=== PATIENT | female | born 1970 | race Caucasian/White ===

== ENCOUNTER 2018-08-13 07:54 | Emergency (ER) | payer OTHER ==
--- NOTE | 2018-08-13 08:40 | EDPHYS ---
Physician Documentation [facility] Name: Elaine Rowland Age: 47 yrs Sex: Female : 1970 Arrival Date: 08/13/2018 Time: 07:58 Bed 18 Private MD: None, None ED Physician Omar Rudd HPI: 08/13 08:29 This 47 yrs old Female presents to ER via Ambulatory with complaints of Foot jr8 Pain. 08:29 The patient presents with pain, numbness, tingling. The complaints affect the right jr8 valenzuela, anterior aspect of right ankle and dorsum of right foot. Onset: The symptoms/episode began/occurred gradually, 2 week(s) ago. Modifying factors: The symptoms are alleviated by nothing. the symptoms are aggravated by nothing. Associated signs and symptoms: The patient has no apparent associated signs or symptoms. Severity of symptoms: At their worst the symptoms were mild, in the emergency department the symptoms are unchanged. The patient has not experienced similar symptoms in the past. The patient has not recently seen a physician. Stated that she has had non specific n/v/d on/off of the past couple of months. Has f/u with GI but missed colonoscopy . 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 - Social history:: Smoking status: Patient/guardian denies using tobacco. - Ebola Screening: : Patient negative for fever greater than or equal to 101.5 degrees Fahrenheit, and additional compatible Ebola Virus Disease symptoms Patient denies exposure to infectious person Patient denies travel to an Ebola-affected area in the 21 days before illness onset No symptoms or risks identified at this time. ROS: 08:35 Eyes: Negative for injury, pain, redness, and discharge, ENT: Negative for injury, jr8 pain, and discharge, Neck: Negative for injury, pain, and swelling, Cardiovascular: Negative for chest pain, palpitations, and edema, Respiratory: Negative for shortness of breath, cough, wheezing, and pleuritic chest pain, Back: Negative for injury and pain, Skin: Negative for injury, rash, and discoloration, Neuro: Negative for headache, weakness, numbness, tingling, and seizure. 08:35 Abdomen/GI: Positive for nausea, vomiting, and diarrhea, abdominal cramps, Negative for abdominal pain, abdominal distension, anorexia, dysphagia, hematemesis, black/tarry stool, rectal pain, rectal bleeding, bowel incontinence, flatulence. 08:35 MS/extremity: Positive for pain, paresthesias, of the right lower leg. Exam: 08:35 Eyes: Pupils equal round and reactive to light, extra-ocular motions intact. Lids and jr8 lashes normal. Conjunctiva and sclera are non-icteric and not injected. Cornea within normal limits. Periorbital areas with no swelling, redness, or edema. ENT: Nares patent. No nasal discharge, no septal abnormalities noted. Tympanic membranes are normal and external auditory canals are clear. Oropharynx with no redness, swelling, or masses, exudates, or evidence of obstruction, uvula midline. Mucous membranes moist. Neck: Trachea midline, no thyromegaly or masses palpated, and no cervical lymphadenopathy. Supple, full range of motion without nuchal rigidity, or vertebral point tenderness. No Meningismus. Cardiovascular: Regular rate and rhythm with a normal S1 and S2. No gallops, murmurs, or rubs. Normal PMI, no JVD. No pulse deficits. Respiratory: Lungs have equal breath sounds bilaterally, clear to auscultation and percussion. No rales, rhonchi or wheezes noted. No increased work of breathing, no retractions or nasal flaring. Abdomen/GI: Soft, non-tender, with normal bowel sounds. No distension or tympany. No guarding or rebound. No evidence of tenderness throughout. Back: No spinal tenderness. No costovertebral tenderness. Full range of motion. Skin: Warm, dry with normal turgor. Normal color with no rashes, no lesions, and no evidence of cellulitis. Neuro: Awake and alert, GCS 15, oriented to person, place, time, and situation. Cranial nerves II-XII grossly intact. Motor strength 5/5 in all extremities. Sensory grossly intact. Cerebellar exam normal. Normal gait. 08:35 Musculoskeletal/extremity: Extremities: grossly normal except: noted in the right lower leg from ankle down: numbness and tingling present, ROM: intact in all extremities, Circulation is intact in all extremities. Vital Signs: 08:12 BP 167 / 93; Pulse 72; Resp 18; Temp 98.3(O); Pulse Ox 100% on R/A; Weight 65.77 kg; em Height 5 ft. 2 in. (157.48 cm); Pain 7/10; 08:12 Body Mass Index 26.52 (65.77 kg, 157.48 cm) em MDM: 08:10 Patient medically screened. jr8 08:35 Data reviewed: vital signs, nurses notes, and as a result, I will discharge patient. jr8 Data interpreted: Pulse oximetry: on room air is 100 %. Interpretation: normal. Counseling: I had a detailed discussion with the patient and/or guardian regarding: the historical points, exam findings, and any diagnostic results supporting the discharge/admit diagnosis, the need for outpatient follow up, a family practitioner, a spray operator, to return to the emergency department if symptoms worsen or persist or if there are any questions or concerns that arise at home. ED course: Discussed with patient that her symptoms are consistent with diabetic mononeuropathy. Will start on gabapentin for pain and paresthesias. Need to f/u with GI for other problems. No acute findings on physical exam and has been going on for months now without acute change . Administered Medications: No medications were administered Disposition: 08/13/18 08:39 Discharged to Home. Impression: Mononeuropathies of lower limb. - Condition is Stable. - Discharge Instructions: Diabetic Neuropathy. - Prescriptions for Neurontin 300 mg Oral Capsule - take 1 capsule by ORAL route as directed 1 pill on day one. Then 1 pill BID on days 2 and on; 30 capsule. - Medication Reconciliation Form, Thank You Letter, Antibiotic Education, Prescription Opioid Use form. - Follow up: Private Physician; When: 2 - 3 days; Reason: Recheck today's complaints, Continuance of care, Re-evaluation by your physician. - Problem is new. - Symptoms have improved. Addendum: 08/15/2018 07:48 Co-signature as Attending Physician, Omar Rudd MD I agree with the assessment and w a plan of care. Signatures: Mahamed Pruitt, CIRA TELESALES ADVISOR em Bashir Card PA PA jr8 Omar Rudd MD MD wa Corrections: (The following items were deleted from the chart) 08/13 08:53 08:39 08/13/2018 08:39 Discharged to Home. Impression: Mononeuropathies of lower limb. em Condition is Stable. Forms are Medication Reconciliation Form, Thank You Letter, Antibiotic Education, Prescription Opioid Use. Follow up: Private Physician; When: 2 - 3 days; Reason: Recheck today's complaints, Continuance of care, Re-evaluation by your physician. Problem is new. Symptoms have improved. jr8
--- NOTE | 2018-08-13 08:40 | ER ---
Nurse's Notes [facility] Name: Elaine Rowland Age: 47 yrs Sex: Female : 1970 Arrival Date: 08/13/2018 Time: 07:58 Bed 18 Private MD: None, None Diagnosis: Mononeuropathies of lower limb Presentation: 08/13 08:09 Presenting complaint: Patient states: foot pain for about a month that feels em numb/tingling, denies trauma, also reports N/V/D for several weeks, was told to follow up with GI due to bad kidney's. Transition of care: patient was not received from another setting of care. Onset of symptoms was July 13, 2018. Risk Assessment: Do you want to hurt yourself or someone else? Patient reports no desire to harm self or others. Initial Sepsis Screen: Does the patient meet any 2 criteria? No. Patient's initial sepsis screen is negative. Does the patient have a suspected source of infection? No. Patient's initial sepsis screen is negative. Care prior to arrival: None. 08:09 Method Of Arrival: Ambulatory em 08:11 Acuity: SHAINA 3 la1 Triage Assessment: 08:12 General: Appears in no apparent distress. comfortable, Behavior is calm, cooperative. em Pain: Complains of pain in dorsum of right foot, right second toe and Right second toenail. 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 - Social history:: Smoking status: Patient/guardian denies using tobacco. - Ebola Screening: : Patient negative for fever greater than or equal to 101.5 degrees Fahrenheit, and additional compatible Ebola Virus Disease symptoms Patient denies exposure to infectious person Patient denies travel to an Ebola-affected area in the 21 days before illness onset No symptoms or risks identified at this time. Screenin:18 Abuse screen: Denies threats or abuse. Nutritional screening: No deficits noted. em Tuberculosis screening: No symptoms or risk factors identified. Fall Risk None identified. Assessment: 08:16 General: Appears in no apparent distress. comfortable, Behavior is calm, cooperative. em Pain: Complains of pain in right second toe and dorsum of right foot Pain currently is 7 out of 10 on a pain scale. Neuro: Level of Consciousness is awake, alert, obeys commands, Oriented to person, place, time, situation, Reports numbness and tingling to right foot x 1 month. Cardiovascular: Denies chest pain, Capillary refill < 3 seconds Patient's skin is warm and dry. Respiratory: Airway is patent Respiratory effort is even, unlabored, Respiratory pattern is regular, symmetrical. GI: Abdomen is round non-distended, Reports diarrhea, nausea, vomiting. : No signs and/or symptoms were reported regarding the genitourinary system. EENT: No signs and/or symptoms were reported regarding the EENT system. Derm: Skin is intact, Skin is pink, warm \T\ dry. Musculoskeletal: Range of motion: intact in all extremities. 08:16 Reassessment: I agree with assessment completed by Mahamed Pruitt LVN . aa5 Vital Signs: 08:12 BP 167 / 93; Pulse 72; Resp 18; Temp 98.3(O); Pulse Ox 100% on R/A; Weight 65.77 kg; em Height 5 ft. 2 in. (157.48 cm); Pain 7/10; 08:12 Body Mass Index 26.52 (65.77 kg, 157.48 cm) em ED Course: 07:58 Patient arrived in ED. mr 07:58 None, None is Private Physician. mr 08:02 Mahamed Pruitt LVN is Primary Nurse. em 08:10 Bashir Card PA is PHCP. jr8 08:10 Omar Rudd MD is Attending Physician. jr8 08:11 Triage completed. la1 08:12 Arm band placed on. em 08:24 Patient has correct armband on for positive identification. Placed in gown. Bed in low em position. Call light in reach. 08:24 No provider procedures requiring assistance completed. em 08:48 Patient did not have IV access during this emergency room visit. em Administered Medications: No medications were administered Outcome: 08:39 Discharge ordered by . jr8 08:48 Discharged to home ambulatory. em 08:48 Condition: good 08:48 Discharge instructions given to patient, Instructed on discharge instructions, follow up and referral plans. medication usage, Demonstrated understanding of instructions, follow-up care, medications, Prescriptions given X 1. 08:53 Patient left the ED. em Signatures: Shelly Neff mr Pruitt, Mahamed, ENGINEERING TECHNICAL SPECIALIST ENGINEERING TECHNICAL SPECIALIST em Kianna Guillermo RN RN aa5 Bashir Card PA PA jr8 Kevin Cox RN RN la1
== END 2018-08-13 08:53 | disposition home or self-care (01) ==
LOC: ER 07:54
DX: G57.91 Unspecified mononeuropathy of right lower limb (principal); E11.9 Type 2 diabetes mellitus without complications; E78.5 Hyperlipidemia, unspecified; Z88.6 Allergy status to analgesic agent
CPT/HCPCS: 99282

== ENCOUNTER 2018-08-14 17:54 | Emergency (ER) | payer OTHER ==
[2018-08-14 19:07] LABS: ALT/SGPT 66 U/L (12-78); AST/SGOT 83 U/L (15-37); Albumin 3.6 g/dL (3.4-5.0); Alkaline Phosphatase 137 U/L (45-117); BUN Blood Urea Nitrogen 15 mg/dL (7-18); Bicarbonate 27 mmol/L (21-32); Bilirubin Direct < 0.1 mg/dL (0-0.2); Bilirubin Total 0.3 mg/dL (0.2-1.0); Glucose Level 254 mg/dL (74-106); Lipase 235 U/L (73-393); Potassium 4.1 mmol/L (3.5-5.1); Protein, Total 7.4 g/dL (6.4-8.2); Sodium Level 140 mmol/L (136-145)
[2018-08-14 19:14] LABS: Absolute Lymphocytes (CBC) 1.8 K/uL (0.7-4.9); Absolute Monocytes 0.4 K/uL (0.1-1.3); Absolute Neutrophil 2.9 K/uL (1.8-8.0); Basophils % 0.7 % (0-1.3); Eosinophils % 2.8 % (0-4.4); Hematocrit 37.1 % (36.0-45.0); Lymphocytes % 33.8 % (15.3-44.8); MCV 90.6 fL (80-100); MPV 9.1 fL (7.6-11.3); Monocytes % 7.1 % (3.3-12.3); RBC Red Blood Cell Count 4.09 M/uL (3.86-4.86)
[2018-08-14 19:21] LABS: Urine Blood NEGATIVE (NEG); Urine Glucose 2+ (NEG); Urine Protein NEGATIVE (NEG); Urine Specific Gravity >1.030 (1.005-1.030); Urine pH 5.5 (5.0-7.0)
--- NOTE | 2018-08-14 19:51 | RAD REPORT ---
EXAM DESCRIPTION: CT - Abdomen Pelvis W Contrast - 08/14/2018 7:32 pm CLINICAL HISTORY: Abdominal pain, abdominal distention COMPARISON: CT study February 2017 TECHNIQUE: Biphasic, helical CT imaging of the abdomen and pelvis was performed following 100 ml non -ionic IV contrast. No oral contrast administered. All CT scans are performed using dose optimization technique as appropriate and may include automated exposure control or mA/KV adjustment according to patient size. FINDINGS: No suspicious findings in the lung bases. The liver, spleen, and pancreas show no suspicious findings. Gallbladder is contracted. Biliary tree within normal limits. Symmetric renal function is seen with no hydronephrosis or suspicious renal mass. No pyelonephritis o r acute renal parenchymal process. Contracted urinary bladder shows no suspicious finding. Uterus and ovaries unremarkable. No dilated bowel loops or bowel wall thickening. Appendix is normal. No free air, free fluid or pneum atosis. No hernia, mass or bulky lymphadenopathy. Patient has numerous central mesenteric lymph node s. No adrenal abnormality. No suspicious bony findings. IMPRESSION: Mesenteric adenitis or nonspecific enteritis pattern.
[2018-08-14] MEDS ORDERED: NA CHLORIDE 0.9% 1,000 ML ONE (20:10)
--- NOTE | 2018-08-14 20:21 | ER ---
Nurse's Notes [facility] Name: Elaine Rowland Age: 47 yrs Sex: Female : 1970 Arrival Date: 08/14/2018 Time: 17:55 Bed 27 Private MD: Diagnosis: Viral Gastroenteritis;Diarrhea, unspecified;Unspecified abdominal pain Presentation: 08/14 18:00 Presenting complaint: Patient states: right leg swelling and abdominal distention that aa5 began 3 weeks ago. Pt states "I was seen here yesterday and all they gave me was Gabapentin for nerve damage from diabetes". Pt reports SOB today. Transition of care: patient was not received from another setting of care. Onset of symptoms was August 14, 2018. Risk Assessment: Do you want to hurt yourself or someone else? Patient reports no desire to harm self or others. Initial Sepsis Screen: Does the patient meet any 2 criteria? No. Patient's initial sepsis screen is negative. Does the patient have a suspected source of infection? No. Patient's initial sepsis screen is negative. Care prior to arrival: None. 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 - Social history:: Smoking status: Patient/guardian denies using tobacco. - Ebola Screening: : No symptoms or risks identified at this time. Screenin:40 Abuse screen: Denies threats or abuse. Denies injuries from another. Nutritional mg2 screening: No deficits noted. Tuberculosis screening: No symptoms or risk factors identified. Fall Risk IV access (20 points). Assessment: 18:40 General: Appears in no apparent distress. comfortable, Behavior is calm, cooperative. mg2 Pain: Complains of pain in abdomen Pain does not radiate. Pain currently is 4 out of 10 on a pain scale. Quality of pain is described as aching, Pain began gradually, 1 day ago. Is intermittent. Neuro: Level of Consciousness is awake, alert, obeys commands, Oriented to person, place, time, situation. Cardiovascular: Capillary refill < 3 seconds Patient's skin is warm and dry. Respiratory: Airway is patent Respiratory effort is even, unlabored, Respiratory pattern is regular, symmetrical. GI: Bowel sounds present X 4 quads. Abd is rigid X 4 quads. EENT: No signs and/or symptoms were reported regarding the EENT system. Derm: Skin is intact, Skin is pink, warm \\T\\ dry. normal. Musculoskeletal: Circulation, motion, and sensation intact. 20:15 Reassessment: Patient appears in no apparent distress at this time. Patient and/or mg2 family updated on plan of care and expected duration. Pain level reassessed. Patient is alert, oriented x 3, equal unlabored respirations, skin warm/dry/pink. Vital Signs: 18:02 BP 173 / 80; Pulse 86; Resp 18 S; Temp 98.8(O); Pulse Ox 98% on R/A; Weight 65.77 kg aa5 (R); Height 5 ft. 2 in. (157.48 cm) (R); Pain 7/10; 19:11 BP 118 / 68; Pulse 85; Resp 18; Pulse Ox 97% on R/A; mg2 20:14 BP 154 / 90; Pulse 80; Resp 18; Pulse Ox 100% on R/A; Pain 5/10; mg2 21:28 BP 140 / 70; Pulse 75; Resp 18; Pulse Ox 100% on R/A; Pain 0/10; mg2 18:02 Body Mass Index 26.52 (65.77 kg, 157.48 cm) aa5 ED Course: 17:55 Patient arrived in ED. mr 18:01 Triage completed. aa5 18:01 Arm band placed on. aa5 18:14 Oskar Young, NADIA is Primary Nurse. mg2 18:16 Shelton Vidal NP is PHCP. pm1 18:16 Fercho Santiago MD is Attending Physician. pm1 18:40 Inserted saline lock: 20 gauge in right antecubital area, using aseptic technique. mg2 Blood collected. 18:42 Patient has correct armband on for positive identification. Bed in low position. Side mg2 rails up X 1. Pulse ox on. NIBP on. 19:[address] via wheelchair. cw1 19:31 CT completed. Patient moved back from CT. cw1 19:32 CT Abd/Pelvis - W/Contrast: IV contrast only In Process Unspecified. EDMS 21:28 No provider procedures requiring assistance completed. IV discontinued, intact, mg2 bleeding controlled, No redness/swelling at site. Pressure dressing applied. Administered Medications: 20:09 Drug: NS 0.9% 1000 ml Route: IV; Rate: 1000 ml; Site: right antecubital; mg2 21:26 Follow up: Response: No adverse reaction; Marked relief of symptoms; IV Status: mg2 Completed infusion Outcome: 20:20 Discharge ordered by MD. pm1 21:28 Discharged to home ambulatory. mg2 21:28 Condition: stable 21:28 Discharge instructions given to patient, Instructed on discharge instructions, follow up and referral plans. Demonstrated understanding of instructions, follow-up care. 21:29 Patient left the ED. mg2 Signatures: Dispatcher [employer] EDVT Shelly Neff Audri, RN RN aa5 Maria Victoria Nielsen cw1 Shelton Vidal, VALDEZ RESEARCH LABORATORY TECHNICIAN pm1 Oskar Young RN RN mg2
--- NOTE | 2018-08-14 20:21 | EDPHYS ---
Physician Documentation [facility] Name: Elaine Rowland Age: 47 yrs Sex: Female : 1970 Arrival Date: 08/14/2018 Time: 17:55 Bed 27 Private MD: ED Physician Fercho Santiago HPI: 08/14 19:00 This 47 yrs old Female presents to ER via Ambulatory with complaints of Leg pm1 Swelling, Abdominal Swelling. 19:00 The patient presents with abdominal pain that is diffuse. Onset: The symptoms/episode pm1 began/occurred Abdominal swelling onset yesterday. Leg swelling onset 3 weeks ago. The symptoms do not radiate. Associated signs and symptoms: Pertinent positives: diarrhea, Pertinent negatives: blood in stools, chest pain, dysuria, fever, headache, nausea, vomiting. The symptoms are described as crampy. Modifying factors: The symptoms are alleviated by nothing, the symptoms are aggravated by nothing. Severity of pain: in the emergency department the pain is actually worse. The patient has not experienced similar symptoms in the past. The patient has been recently seen at the [facility] Emergency Department, yesterday, Right leg numbness and diagnosed with mononeuropathy due to DM and discharged to home with gabapentin. Patient reports swelling to right leg that started three weeks ago. Abdominal distension and diarrhea x 5 onset yesterday. Patient reports abdominal distention makes it feel like it is hard for her to breath. . 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 - Social history:: Smoking status: Patient/guardian denies using tobacco. - Ebola Screening: : No symptoms or risks identified at this time. ROS: 19:00 Constitutional: Negative for fever, chills, and weight loss, Eyes: Negative for injury, pm1 pain, redness, and discharge, ENT: Negative for injury, pain, and discharge, Neck: Negative for injury, pain, and swelling, Cardiovascular: Negative for chest pain, palpitations, and edema, Respiratory: Negative for shortness of breath, cough, wheezing, and pleuritic chest pain. 19:00 Back: Negative for injury and pain, : Negative for injury, bleeding, discharge, and swelling, MS/Extremity: Negative for injury and deformity, Skin: Negative for injury, rash, and discoloration. 19:00 Abdomen/GI: Positive for abdominal pain, diarrhea, Negative for nausea and vomiting. 19:00 Neuro: Positive for numbness right foot, Negative for dizziness, headache, weakness. Exam: 19:00 Constitutional: This is a well developed, well nourished patient who is awake, alert, pm1 and in no acute distress. Head/Face: Normocephalic, atraumatic. Eyes: Pupils equal round and reactive to light, extra-ocular motions intact. Lids and lashes normal. Conjunctiva and sclera are non-icteric and not injected. Cornea within normal limits. Periorbital areas with no swelling, redness, or edema. ENT: Nares patent. No nasal discharge, no septal abnormalities noted. Tympanic membranes are normal and external auditory canals are clear. Oropharynx with no redness, swelling, or masses, exudates, or evidence of obstruction, uvula midline. Mucous membranes moist. Neck: Trachea midline, no thyromegaly or masses palpated, and no cervical lymphadenopathy. Supple, full range of motion without nuchal rigidity, or vertebral point tenderness. No Meningismus. Chest/axilla: Normal chest wall appearance and motion. Nontender with no deformity. No lesions are appreciated. Cardiovascular: Regular rate and rhythm with a normal S1 and S2. No gallops, murmurs, or rubs. Normal PMI, no JVD. No pulse deficits. Respiratory: Lungs have equal breath sounds bilaterally, clear to auscultation and percussion. No rales, rhonchi or wheezes noted. No increased work of breathing, no retractions or nasal flaring. 19:00 Back: No spinal tenderness. No costovertebral tenderness. Full range of motion. Skin: Warm, dry with normal turgor. Normal color with no rashes, no lesions, and no evidence of cellulitis. 19:00 Abdomen/GI: Inspection: abdomen appears normal, obese Bowel sounds: normal, Palpation: soft, mild abdominal tenderness, in the right upper quadrant and left upper quadrant, mass, is not appreciated, rebound tenderness, is not appreciated. 19:00 Musculoskeletal/extremity: Extremities: all appear grossly normal, with no appreciated pain with palpation, DVT Exam: No signs of deep vein thrombosis. no pain, no swelling, no tenderness, negative Homans' sign noted on exam, no appreciated bluish discoloration, no erythema, no increased warmth, Calves: are non-tender, have equal circumference. 19:00 Neuro: Orientation: is normal, Motor: moves all fours. Vital Signs: 18:02 BP 173 / 80; Pulse 86; Resp 18 S; Temp 98.8(O); Pulse Ox 98% on R/A; Weight 65.77 kg aa5 (R); Height 5 ft. 2 in. (157.48 cm) (R); Pain 7/10; 19:11 BP 118 / 68; Pulse 85; Resp 18; Pulse Ox 97% on R/A; mg2 20:14 BP 154 / 90; Pulse 80; Resp 18; Pulse Ox 100% on R/A; Pain 5/10; mg2 21:28 BP 140 / 70; Pulse 75; Resp 18; Pulse Ox 100% on R/A; Pain 0/10; mg2 18:02 Body Mass Index 26.52 (65.77 kg, 157.48 cm) aa5 MDM: 18:17 Patient medically screened. pm1 20:19 Data reviewed: vital signs. Data interpreted: Pulse oximetry: on room air is 100 %. pm1 Interpretation: normal. Counseling: I had a detailed discussion with the patient and/or guardian regarding: the historical points, exam findings, and any diagnostic results supporting the discharge/admit diagnosis, lab results, radiology results, the need for outpatient follow up, to return to the emergency department if symptoms worsen or persist or if there are any questions or concerns that arise at home. 08/14 18:23 Order name: Basic Metabolic Panel pm1 08/14 18:23 Order name: CBC with Diff; Complete Time: 20:00 pm1 08/14 18:23 Order name: Creatinine for Radiology; Complete Time: 20:00 pm1 08/14 18:23 Order name: Hepatic Function; Complete Time: 20:00 pm1 08/14 18:23 Order name: Lipase; Complete Time: 20:00 pm1 08/14 18:23 Order name: Basic Metabolic Panel; Complete Time: 20:00 EDMS 08/14 18:23 Order name: Urine Test (obtain specimen); Complete Time: 18:49 pm1 08/14 18:23 Order name: IV Saline Lock; Complete Time: 18:40 pm1 08/14 18:23 Order name: Labs collected and sent; Complete Time: 18:40 pm1 08/14 18:23 Order name: Urine Dipstick-Ancillary (obtain specimen); Complete Time: 18:49 pm1 08/14 18:36 Order name: CT Abd/Pelvis - W/Contrast: IV contrast only; Complete Time: 20:00 pm1 08/14 18:55 Order name: Urine Dipstick--Ancillary (enter results); Complete Time: 20:00 ag 08/14 18:55 Order name: Urine --Ancillary (enter results); Complete Time: 20:00 ag Administered Medications: 20:09 Drug: NS 0.9% 1000 ml Route: IV; Rate: 1000 ml; Site: right antecubital; mg2 21:26 Follow up: Response: No adverse reaction; Marked relief of symptoms; IV Status: mg2 Completed infusion Disposition: 08/14/18 20:20 Discharged to Home. Impression: Viral Gastroenteritis, Diarrhea, unspecified, Unspecified abdominal pain. - Condition is Stable. - Discharge Instructions: Abdominal Pain, Adult, Food Choices to Help Relieve Diarrhea, Adult, Diarrhea, Adult, Viral Gastroenteritis, Adult. - Prescriptions for Bentyl 20 mg Oral Tablet - take 1 tablet by ORAL route every 6 hours As needed; 20 tablet. - Medication Reconciliation Form, Thank You Letter, Antibiotic Education, Prescription Opioid Use form. - Follow up: Emergency Department; When: As needed; Reason: Worsening of condition. Follow up: Private Physician; When: 2 - 3 days; Reason: Recheck today's complaints, Continuance of care, Re-evaluation by your physician. - Problem is new. - Symptoms have improved. Signatures: Dispatcher [employer] EDMS Kianna Guillermo RN RN aa5 Shelton Vidal NP SUPERVISOR BEET END pm1 Oskar Young RN RN mg2 Corrections: (The following items were deleted from the chart) 21:29 20:20 08/14/2018 20:20 Discharged to Home. Impression: Viral Gastroenteritis; Diarrhea, mg2 unspecified; Unspecified abdominal pain. Condition is Stable. Forms are Medication Reconciliation Form, Thank You Letter, Antibiotic Education, Prescription Opioid Use. Follow up: Emergency Department; When: As needed; Reason: Worsening of condition. Follow up: Private Physician; When: 2 - 3 days; Reason: Recheck today's complaints, Continuance of care, Re-evaluation by your physician. Problem is new. Symptoms have improved. pm1
== END 2018-08-14 21:29 | disposition home or self-care (01) ==
LOC: ER 17:54
DX: A08.4 Viral intestinal infection, unspecified (principal); R19.7 Diarrhea, unspecified; E11.9 Type 2 diabetes mellitus without complications; Z88.6 Allergy status to analgesic agent
CPT/HCPCS: 36415; 74177; 80048; 80076; 81003; 81025; 83690; 85025; 96360; 99284; J7030; Q9967

== ENCOUNTER 2018-08-27 12:06 | Emergency (ER) | payer OTHER ==
[2018-08-27] MEDS ORDERED: DICYCLOMINE HCL 10 MG CAP ONE (12:39)
[2018-08-27] MEDS ORDERED: NA CHLORIDE 0.9% 1,000 ML ONE (12:40)
[2018-08-27] MEDS ORDERED: ONDANSETRON 4 MG/2 ML VIAL ONE (12:40)
[2018-08-27 12:50] LABS: Absolute Monocytes 0.2 K/uL (0.1-1.3); Absolute Neutrophil 3.4 K/uL (1.8-8.0); Basophils % 0.7 % (0-1.3); Eosinophils % 1.8 % (0-4.4); Hematocrit 39.8 % (36.0-45.0); Lymphocytes % 21.4 % (15.3-44.8); MCH 30.4 pg (27.0-35.0); MCV 88.2 fL (80-100); MPV 8.8 fL (7.6-11.3); Monocytes % 4.8 % (3.3-12.3); RBC Red Blood Cell Count 4.51 M/uL (3.86-4.86)
[2018-08-27 13:05] LABS: Urine Blood TRACE (NEG); Urine Glucose 2+ (NEG); Urine Protein NEGATIVE (NEG); Urine Specific Gravity 1.015 (1.005-1.030)
[2018-08-27 13:07] LABS: ALT/SGPT 30 U/L (12-78); AST/SGOT 29 U/L (15-37); Albumin 3.9 g/dL (3.4-5.0); Alkaline Phosphatase 107 U/L (45-117); BUN Blood Urea Nitrogen 12 mg/dL (7-18); Bicarbonate 31 mmol/L (21-32); Bilirubin Direct < 0.1 mg/dL (0-0.2); Bilirubin Total 0.5 mg/dL (0.2-1.0); Glucose Level 173 mg/dL (74-106); Lipase 208 U/L (73-393); Potassium 3.8 mmol/L (3.5-5.1); Protein, Total 7.5 g/dL (6.4-8.2); Sodium Level 142 mmol/L (136-145)
--- NOTE | 2018-08-27 14:35 | ER ---
Nurse's Notes [facility] Name: Elaine Rowland Age: 48 yrs Sex: Female : 1970 Arrival Date: 08/27/2018 Time: 12:09 Bed 7 Private MD: None, None Diagnosis: Nausea and vomiting;Diarrhea, unspecified Presentation: 08/27 12:21 Presenting complaint: Patient states: Reports N/V/D for 4 days. Reports fever aj yesterday. Transition of care: patient was not received from another setting of care. Onset of symptoms was August 23, 2018. Risk Assessment: Do you want to hurt yourself or someone else? Patient reports no desire to harm self or others. Initial Sepsis Screen: Does the patient meet any 2 criteria? No. Patient's initial sepsis screen is negative. Does the patient have a suspected source of infection? No. Patient's initial sepsis screen is negative. Care prior to arrival: None. 12:21 Method Of Arrival: Ambulatory aj 12:21 Acuity: SHAINA 3 aj Triage Assessment: 12:22 General: Appears in no apparent distress. comfortable, Behavior is calm, cooperative, aj appropriate for age. Pain: Denies pain. Neuro: Level of Consciousness is awake, alert, obeys commands, Oriented to person, place, time, situation, Appropriate for age. Respiratory: Airway is patent Respiratory effort is even, unlabored, Respiratory pattern is regular, symmetrical. GI: Reports diarrhea, nausea, vomiting. Derm: Skin is intact, is healthy with good turgor, Skin is pink, warm \T\ dry. normal. GAMING HOST: 12:22 LMP N/A - Post-menopause aj Historical: - Allergies: 12:22 Ibuprofen; aj - Home Meds: 12:22 Glimepiride Oral [Active]; Invokana Oral [Active]; gabapentin oral oral [Active]; aj - PMHx: 12:22 acid reflux; Diabetes - NIDDM; Hyperlipidemia; aj - PSHx: 12:22 Carpal Tunnel Repair; aj - Immunization history:: Adult Immunizations up to date. - Social history:: Smoking status: Patient/guardian denies using tobacco. - Ebola Screening: : Patient negative for fever greater than or equal to 101.5 degrees Fahrenheit, and additional compatible Ebola Virus Disease symptoms Patient denies exposure to infectious person Patient denies travel to an Ebola-affected area in the 21 days before illness onset No symptoms or risks identified at this time. Screenin:42 Abuse screen: Denies threats or abuse. Nutritional screening: No deficits noted. la1 Tuberculosis screening: No symptoms or risk factors identified. Fall Risk None identified. Assessment: 12:41 General: Appears uncomfortable, Behavior is. Pain: Complains of pain in back and la1 abdomen. Neuro: Level of Consciousness is awake, alert, obeys commands, Oriented to person, place, time, situation. Cardiovascular: Capillary refill < 3 seconds Patient's skin is warm and dry. Respiratory: Airway is patent Respiratory effort is even, unlabored, Respiratory pattern is regular, symmetrical, Breath sounds are clear bilaterally. GI: Abdomen is round non-distended. : No signs and/or symptoms were reported regarding the genitourinary system. 13:55 Reassessment: Patient appears in no apparent distress at this time. No changes from la1 previously documented assessment. Patient and/or family updated on plan of care and expected duration. Pain level reassessed. Vital Signs: 12:22 BP 127 / 75; Pulse 85; Resp 16; Temp 98.3; Pulse Ox 100% on R/A; Weight 65.77 kg; aj Height 5 ft. 2 in. (157.48 cm); 13:55 BP 144 / 71; Pulse 72; Resp 16; Pulse Ox 100% on R/A; la1 12:22 Body Mass Index 26.52 (65.77 kg, 157.48 cm) aj ED Course: 12:09 Patient arrived in ED. mr 12:10 None, None is Private Physician. mr 12:21 Triage completed. aj 12:22 Arm band placed on right wrist. Patient placed in an exam room. aj 12:24 Kevin Cox, NADIA is Primary Nurse. la1 12:26 Mariposa Triana [facility]C [facility] kb 12:26 Amadou Barksdale MD is Attending Physician. kb 12:42 Bed in low position. Call light in reach. Side rails up X 1. Pulse ox on. NIBP on. la1 12:42 Inserted saline lock: 20 gauge in right antecubital area, using aseptic technique. la1 Blood collected. 14:44 No provider procedures requiring assistance completed. IV discontinued, intact, hj bleeding controlled, No redness/swelling at site. Pressure dressing applied. Administered Medications: 12:31 Drug: Bentyl 20 mg Route: PO; hj 14:44 Follow up: Response: No adverse reaction hj 12:43 Drug: NS 0.9% 1000 ml Route: IV; Rate: 1000 ml; Site: right antecubital; la1 14:45 Follow up: IV Status: Completed infusion; IV Intake: 1000ml hj 12:43 Drug: Zofran 4 mg Route: IVP; Site: right antecubital; la1 14:45 Follow up: Response: No adverse reaction hj Intake: 14:45 IV: 1000ml; Total: 1000ml. hj Outcome: 14:34 Discharge ordered by . dominique 14:44 Discharged to home ambulatory. hj 14:44 Condition: stable 14:44 Discharge instructions given to patient, family, Instructed on discharge instructions, follow up and referral plans. medication usage, Demonstrated understanding of instructions, follow-up care, medications, Prescriptions given X 2. 14:45 Patient left the ED. Signatures: Mariposa Triana, TELEVISION NEWSCAST DIRECTOR-C TELEVISION NEWSCAST DIRECTOR-Azalea Perez, RN Shelly Smith Lee, RN RN la1 Kushal Urena RN RN
--- NOTE | 2018-08-27 14:35 | EDPHYS ---
Physician Documentation [facility] Name: Elaine Rowland Age: 48 yrs Sex: Female : 1970 Arrival Date: 08/27/2018 Time: 12:09 Bed 7 Private MD: None, None ED Physician Amadou Barksdale HPI: 08/27 13:54 This 48 yrs old Female presents to ER via Ambulatory with complaints of kb Fever, Diarrhea. 13:54 The patient presents to the emergency department with nausea, vomiting, diarrhea, kb abdominal pain. Onset: The symptoms/episode began/occurred 4 day(s) ago. Possible causes: unknown. The symptoms are aggravated by nothing. The symptoms are alleviated by nothing. Associated signs and symptoms: Pertinent positives: abdominal pain, diarrhea, fever, nausea, vomiting. Severity of symptoms: At their worst the symptoms were moderate in the emergency department the symptoms are unchanged. The patient has not experienced similar symptoms in the past. The patient has not recently seen a physician. MOUNTAIN GUIDE: 12:22 LMP N/A - Post-menopause aj Historical: - Allergies: 12:22 Ibuprofen; aj - Home Meds: 12:22 Glimepiride Oral [Active]; Invokana Oral [Active]; gabapentin oral oral [Active]; aj - PMHx: 12:22 acid reflux; Diabetes - NIDDM; Hyperlipidemia; aj - PSHx: 12:22 Carpal Tunnel Repair; aj - Immunization history:: Adult Immunizations up to date. - Social history:: Smoking status: Patient/guardian denies using tobacco. - Ebola Screening: : Patient negative for fever greater than or equal to 101.5 degrees Fahrenheit, and additional compatible Ebola Virus Disease symptoms Patient denies exposure to infectious person Patient denies travel to an Ebola-affected area in the 21 days before illness onset No symptoms or risks identified at this time. ROS: 13:54 Neck: Negative for injury, pain, and swelling, Cardiovascular: Negative for chest pain, kb palpitations, and edema, Respiratory: Negative for shortness of breath, cough, wheezing, and pleuritic chest pain, Back: Negative for injury and pain, : Negative for injury, bleeding, discharge, and swelling, MS/Extremity: Negative for injury and deformity, Skin: Negative for injury, rash, and discoloration, Neuro: Negative for headache, weakness, numbness, tingling, and seizure. 13:54 Constitutional: Positive for fever, Negative for body aches, chills, fatigue, malaise, poor PO intake, weight loss. 13:54 Abdomen/GI: Positive for abdominal pain, nausea, vomiting, and diarrhea. Exam: 13:54 Constitutional: This is a well developed, well nourished patient who is awake, alert, kb and in no acute distress. Head/Face: Normocephalic, atraumatic. Chest/axilla: Normal chest wall appearance and motion. Nontender with no deformity. No lesions are appreciated. Cardiovascular: Regular rate and rhythm with a normal S1 and S2. No gallops, murmurs, or rubs. Normal PMI, no JVD. No pulse deficits. Respiratory: Lungs have equal breath sounds bilaterally, clear to auscultation and percussion. No rales, rhonchi or wheezes noted. No increased work of breathing, no retractions or nasal flaring. Back: No spinal tenderness. No costovertebral tenderness. Full range of motion. Skin: Warm, dry with normal turgor. Normal color with no rashes, no lesions, and no evidence of cellulitis. MS/ Extremity: Pulses equal, no cyanosis. Neurovascular intact. Full, normal range of motion. Neuro: Awake and alert, GCS 15, oriented to person, place, time, and situation. Cranial nerves II-XII grossly intact. Motor strength 5/5 in all extremities. Sensory grossly intact. Cerebellar exam normal. Normal gait. 13:54 Abdomen/GI: Inspection: abdomen appears normal, Bowel sounds: normal, in all quadrants, Palpation: soft, in all quadrants, mild abdominal tenderness, in all quadrants. Vital Signs: 12:22 BP 127 / 75; Pulse 85; Resp 16; Temp 98.3; Pulse Ox 100% on R/A; Weight 65.77 kg; aj Height 5 ft. 2 in. (157.48 cm); 13:55 BP 144 / 71; Pulse 72; Resp 16; Pulse Ox 100% on R/A; la1 12:22 Body Mass Index 26.52 (65.77 kg, 157.48 cm) aj MDM: 12:26 Patient medically screened. kb 13:55 Data reviewed: vital signs, nurses notes. Data interpreted: Pulse oximetry: on room air kb is 100 %. Interpretation: normal. 14:32 Counseling: I had a detailed discussion with the patient and/or guardian regarding: the kb historical points, exam findings, and any diagnostic results supporting the discharge/admit diagnosis, lab results, the need for outpatient follow up, a family practitioner, to return to the emergency department if symptoms worsen or persist or if there are any questions or concerns that arise at home. 08/27 12:31 Order name: Basic Metabolic Panel; Complete Time: 13:13 kb 08/27 12:31 Order name: CBC with Diff; Complete Time: 13:01 kb 08/27 12:31 Order name: Hepatic Function; Complete Time: 13:13 kb 08/27 12:31 Order name: Lipase; Complete Time: 13:13 kb 08/27 12:31 Order name: Flu; Complete Time: 14:32 kb 08/27 12:31 Order name: [place] Screen Profile; Complete Time: 13:01 kb 08/27 12:31 Order name: IV Saline Lock; Complete Time: 12:44 kb 08/27 12:36 Order name: Urine Dipstick--Ancillary (enter results) 08/27 12:36 Order name: Urine --Ancillary (enter results) 08/27 12:36 Order name: Urine Dipstick-Ancillary; Complete Time: 13:13 EDMS 08/27 12:36 Order name: Urine --Ancillary; Complete Time: 13:13 EDMS 08/27 12:31 Order name: Labs collected and sent; Complete Time: 12:44 kb 08/27 12:31 Order name: Urine Dipstick-Ancillary (obtain specimen); Complete Time: 12:43 kb Administered Medications: 12:31 Drug: Bentyl 20 mg Route: PO; hj 14:44 Follow up: Response: No adverse reaction hj 12:43 Drug: NS 0.9% 1000 ml Route: IV; Rate: 1000 ml; Site: right antecubital; la1 14:45 Follow up: IV Status: Completed infusion; IV Intake: 1000ml hj 12:43 Drug: Zofran 4 mg Route: IVP; Site: right antecubital; la1 14:45 Follow up: Response: No adverse reaction Disposition: 17:34 Co-signature as Attending Physician, Amadou Barksdale MD. Disposition: 08/27/18 14:34 Discharged to Home. Impression: Nausea and vomiting, Diarrhea, unspecified. - Condition is Stable. - Discharge Instructions: Food Choices to Help Relieve Diarrhea, Adult, Nausea and Vomiting, Adult, [place]-lo-Zohn, Diarrhea, Adult, [place]v-[place]-[id number]. - Prescriptions for Bentyl 20 mg Oral Tablet - take 1 tablet by ORAL route every 6 hours As needed; 20 tablet. Zofran 4 mg Oral Tablet - take 1 tablet by ORAL route every 6 hours As needed; 20 tablet. - Work release form, Medication Reconciliation Form, Thank You Letter, Antibiotic Education, Prescription Opioid Use form. - Follow up: Emergency Department; When: As needed; Reason: Worsening of condition. Follow up: Private Physician; When: 2 - 3 days; Reason: Recheck today's complaints, Continuance of care, Re-evaluation by your physician. Signatures: Dispatcher [employer] EDMS Mariposa Triana, OLIVE BRADLEY-Azalea Perez RN RN aj Attema, Lee, RN RN laKushal Moreno RN RN hj Starr, Gregory, MD MD gs Corrections: (The following items were deleted from the chart) 14:45 14:34 08/27/2018 14:34 Discharged to Home. Impression: Nausea and vomiting; Diarrhea, hj unspecified. Condition is Stable. Forms are Medication Reconciliation Form, Thank You Letter, Antibiotic Education, Prescription Opioid Use. Follow up: Emergency Department; When: As needed; Reason: Worsening of condition. Follow up: Private Physician; When: 2 - 3 days; Reason: Recheck today's complaints, Continuance of care, Re-evaluation by your physician. kb
== END 2018-08-27 14:45 | disposition home or self-care (01) ==
LOC: ER 12:06
DX: R19.7 Diarrhea, unspecified (principal); E78.5 Hyperlipidemia, unspecified; E11.9 Type 2 diabetes mellitus without complications; Z88.6 Allergy status to analgesic agent
CPT/HCPCS: 36415; 80048; 80076; 81003; 81025; 83690; 85025; 86308; 87804; 96361; 96374; 99284; J2405; J7030

== ENCOUNTER 2018-09-26 10:06 | Emergency (ER) | payer OTHER ==
[2018-09-26] MEDS ORDERED: LIDOCAINE 1% W/EPI 1:100,000 MDV 50 ML VIAL ONE (10:41)
[2018-09-26] MEDS ORDERED: TETANUS & DIPHTHERIA TOX,ADULT 0.5 ML VIAL ONE (11:44)
[2018-09-26] MEDS ORDERED: VANCOMYCIN/NS 1 gm 1 GM/250 ML BAG IV ONE (11:45)
[2018-09-26] MEDS ORDERED: PIPER/TAZO/NS 3.375gm 3.375 GM/100 ML BAG IV ONE (11:45)
[2018-09-26 11:53] LABS: Absolute Lymphocytes (CBC) 1.5 K/uL (0.7-4.9); Absolute Monocytes 0.3 K/uL (0.1-1.3); Absolute Neutrophil 3.3 K/uL (1.8-8.0); Basophils % 0.5 % (0-1.3); Eosinophils % 1.1 % (0-4.4); Hematocrit 41.3 % (36.0-45.0); Lymphocytes % 28.5 % (15.3-44.8); MCH 30.5 pg (27.0-35.0); MCV 88.8 fL (80-100); MPV 8.3 fL (7.6-11.3); RBC Red Blood Cell Count 4.65 M/uL (3.86-4.86)
[2018-09-26 12:07] LABS: Bilirubin Total 0.6 mg/dL (0.2-1.0); Potassium 3.6 mmol/L (3.5-5.1)
--- NOTE | 2018-09-26 12:18 | RAD REPORT ---
EXAM DESCRIPTION: RAD - Ankle Right 3 View - 09/26/2018 12:10 pm CLINICAL HISTORY: Pain;Swelling COMPARISON: No comparisons FINDINGS: No fracture, dislocation or radiopaque foreign body. Soft tissue laceration seen posterior soft tissues of the ankle.
--- NOTE | 2018-09-26 14:20 | ER ---
Nurse's Notes [facility] Name: Elaine Rowland Age: 48 yrs Sex: Female : 1970 Arrival Date: 09/26/2018 Time: 10:08 Bed 25 Private MD: Diagnosis: Laceration without foreign body, right lower leg;Type 2 diabetes mellitus Presentation: 09/26 10:08 Presenting complaint: Patient states: She was weed eating the lawn yesterday and aj1 something hit the back of her right ankle. Laceration noted to right ankle. Patient states that she just put a band-aid on it yesterday, but this morning when she woke up this morning it was painful and swollen, she was worried about it getting infected. Transition of care: patient was not received from another setting of care. Complicating Factors: There are no complicating factors for this patient. Onset of symptoms was September 25, 2018. Risk Assessment: Do you want to hurt yourself or someone else? Patient reports no desire to harm self or others. Initial Sepsis Screen: Does the patient meet any 2 criteria? No. Patient's initial sepsis screen is negative. Does the patient have a suspected source of infection? No. Patient's initial sepsis screen is negative. Care prior to arrival: None. 10:08 Method Of Arrival: EMS: [facility] aj1 10:08 Acuity: SAHINA 4 aj1 Triage Assessment: 10:27 General: Appears in no apparent distress. uncomfortable, Behavior is calm, cooperative, aj1 appropriate for age. Pain: Complains of pain in right Achilles. Neuro: Level of Consciousness is awake, alert, obeys commands. Injury Description: Laceration sustained to right Achilles. 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 - Social history:: Smoking status: Patient/guardian denies using tobacco. - Ebola Screening: : Patient denies travel to an Ebola-affected area in the 21 days before illness onset. - Family history:: not pertinent. Screenin:08 Abuse screen: Denies threats or abuse. Denies injuries from another. Nutritional aj1 screening: No deficits noted. Tuberculosis screening: No symptoms or risk factors identified. 16:38 Fall Risk None identified. aj1 Assessment: 10:08 General: Appears in no apparent distress. uncomfortable, Behavior is calm, cooperative, aj1 appropriate for age. Pain: Complains of pain in right Achilles Pain does not radiate. Pain currently is 9 out of 10 on a pain scale. Quality of pain is described as burning, throbbing, Pain began 1 day ago. Is continuous. Neuro: Level of Consciousness is awake, alert, obeys commands. Cardiovascular: Patient's skin is warm and dry. Respiratory: Airway is patent Respiratory effort is even, unlabored, Respiratory pattern is regular, symmetrical. GI: No signs and/or symptoms were reported involving the gastrointestinal system. : No signs and/or symptoms were reported regarding the genitourinary system. EENT: No signs and/or symptoms were reported regarding the EENT system. Derm: No signs and/or symptoms reported regarding the dermatologic system. Musculoskeletal: No signs and/or symptoms reported regarding the musculoskeletal system. Range of motion: intact in all extremities. Injury Description: Laceration sustained to right Achilles is not bleeding. 11:10 Reassessment: Patient appears in no apparent distress at this time. No changes from aj1 previously documented assessment. Patient and/or family updated on plan of care and expected duration. Pain level reassessed. Patient is alert, oriented x 3, equal unlabored respirations, skin warm/dry/pink. 12:15 Reassessment: Patient and/or family updated on plan of care and expected duration. Pain aj1 level reassessed. General: Appears in no apparent distress. comfortable, Behavior is calm, cooperative, appropriate for age. Pain: Pain currently is 5 out of 10 on a pain scale. Neuro: Level of Consciousness is awake, alert, obeys commands. Cardiovascular: Patient's skin is warm and dry. Respiratory: Airway is patent Respiratory effort is even, unlabored, Respiratory pattern is regular, symmetrical. Derm: No signs and/or symptoms reported regarding the dermatologic system. Skin is pink, warm \T\ dry. normal. Musculoskeletal: No signs and/or symptoms reported regarding the musculoskeletal system. Circulation, motion, and sensation intact. 13:29 Reassessment: Patient appears in no apparent distress at this time. No changes from aj1 previously documented assessment. Patient and/or family updated on plan of care and expected duration. Pain level reassessed. Patient is alert, oriented x 3, equal unlabored respirations, skin warm/dry/pink. 14:01 Reassessment: Dr. Ohara at bedside performing laceration repair. aj1 14:30 Reassessment: Patient appears in no apparent distress at this time. No changes from aj1 previously documented assessment. Patient and/or family updated on plan of care and expected duration. Pain level reassessed. Patient is alert, oriented x 3, equal unlabored respirations, skin warm/dry/pink. 14:44 Reassessment: Discharge pending completing infusion of IV antiobiotics. aj1 15:20 Reassessment: awaiting for IV vancomycin infusion to complete prior to discharging home. 16:37 Reassessment: Patient and/or family updated on plan of care and expected duration. Pain aj1 level reassessed. General: Appears in no apparent distress. comfortable, Behavior is calm, cooperative, appropriate for age. Neuro: Level of Consciousness is awake, alert, obeys commands. Cardiovascular: Patient's skin is warm and dry. Respiratory: Airway is patent Respiratory effort is even, unlabored, Respiratory pattern is regular, symmetrical. GI: No signs and/or symptoms were reported involving the gastrointestinal system. Derm: No signs and/or symptoms reported regarding the dermatologic system. Skin is pink, warm \T\ dry. normal. Musculoskeletal: No signs and/or symptoms reported regarding the musculoskeletal system. Circulation, motion, and sensation intact. Vital Signs: 10:27 BP 152 / 92; Pulse 82; Resp 18; Temp 98.7; Pulse Ox 98% on R/A; Weight 62.6 kg; Height aj1 5 ft. 2 in. (157.48 cm) (R); Pain 9/10; 11:51 BP 169 / 76; Pulse 75; Resp 18; Pulse Ox 100% on R/A; Pain 9/10; aj1 13:30 BP 138 / 82; Pulse 65; Resp 18; Pulse Ox 100% on R/A; aj1 14:30 BP 146 / 88; Pulse 60; Resp 18; Pulse Ox 100% ; aj1 15:30 BP 138 / 74; Pulse 66; Resp 18; Pulse Ox 100% ; aj1 16:30 BP 138 / 74; Pulse 66; Resp 18; Pulse Ox 100% on R/A; aj1 10:27 Body Mass Index 25.24 (62.60 kg, 157.48 cm) aj1 ED Course: 10:08 Patient arrived in ED. aj1 10:08 Patient has correct armband on for positive identification. Bed in low position. Call aj1 light in reach. Side rails up X 1. 10:08 No provider procedures requiring assistance completed. aj1 10:17 Se Ohara MD is Attending Physician. [facility] 10:22 Ximena Cohen RN is Primary Nurse. aj1 10:25 Triage completed. aj1 10:27 Arm band placed on. aj1 11:15 Wound care: to laceration located on lateral side of right heel, right Achilles and jp3 medial aspect of right heel was cleaned with Hibiclens, soaked in Betadine solution, debrided using Betadine scrub, irrigated with normal saline, Patient tolerated well. 12:10 X-ray completed. Portable x-ray completed in exam room. Patient tolerated procedure az well. 12:11 Ankle Right 3 View In Process Unspecified. EDMS 14:21 Ignacio Braga MD is Referral Physician. [facility] 16:41 IV discontinued, intact, bleeding controlled, No redness/swelling at site. Pressure ss dressing applied. 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 Exp: aj1 11/16/2020. Lot #: [id number]. } Route: IM; Site: left deltoid; 13:00 Follow up: Response: No adverse reaction aj1 13:23 Follow up: Response: No adverse reaction aj1 12:39 Drug: Zosyn 3.375 grams Route: IVPB; Infused Over: 60 mins; Site: left antecubital; aj1 15:00 Follow up: IV Status: Completed infusion; IV Intake: 100ml aj1 14:00 Drug: Lidocaine-Epinephrine -1%: (1:100,000) 10 ml {Note: Administered by Dr. joe Ohara.} Volume: 20 ml; Route: Infiltration; 14:31 Drug: Doxycycline 200 mg Route: PO; aj1 16:41 Follow up: Response: No adverse reaction ss 14:31 Drug: Bactrim (160 mg-800 mg (DS) 1 tablet Route: PO; aj1 16:41 Follow up: Response: No adverse reaction ss 15:00 Drug: vancoMYCIN 1 grams Route: IVPB; Infused Over: 2 hrs; Site: left antecubital; aj1 16:41 Follow up: IV Status: Completed infusion ss 16:41 Follow up: IV Status: Completed infusion; IV Intake: 250ml aj Intake: 15:00 IV: 100ml; Total: 100ml. aj1 16:41 IV: 250ml; Total: 350ml. aj Outcome: 14:19 Discharge ordered by . mauricio 15:20 Condition: good 15:20 Discharge instructions given to patient, Instructed on discharge instructions, follow up and referral plans. medication usage, Demonstrated understanding of instructions, follow-up care, medications, Prescriptions given X 4. 16:41 Discharged to home ambulatory. ss 16:41 Patient left the ED. ss Signatures: Dispatcher [employer] EDXimena Mccormick, NADIA RN aj1 Se Ohara MD MD cha Smirch, Shelby, RN RN Paul Roe 3 Beth Gaffney
--- NOTE | 2018-09-26 14:20 | EDPHYS ---
Physician Documentation [facility] Name: Elaine Rowland Age: 48 yrs Sex: Female : 1970 Arrival Date: 09/26/2018 Time: 10:08 Bed 25 Private MD: ED Physician Se Ohara HPI: 09/26 11:02 This 48 yrs old Female presents to ER via EMS with complaints of Laceration mauricio To Leg. 11:02 The patient has a laceration related to: doing yard work, occurred outdoors. The mauricio laceration(s) is(are) located on the left Achilles. Onset: The symptoms/episode began/occurred yesterday. Associated signs and symptoms: The patient has no apparent associated signs or symptoms. The patient has not experienced similar symptoms in the past. 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 - Social history:: Smoking status: Patient/guardian denies using tobacco. - Ebola Screening: : Patient denies travel to an Ebola-affected area in the 21 days before illness onset. - Family history:: not pertinent. ROS: 11:02 Constitutional: Negative for fever, chills, and weight loss, Eyes: Negative for injury, mauricio pain, redness, and discharge, ENT: Negative for injury, pain, and discharge, Neck: Negative for injury, pain, and swelling, Cardiovascular: Negative for chest pain, palpitations, and edema, Respiratory: Negative for shortness of breath, cough, wheezing, and pleuritic chest pain, Abdomen/GI: Negative for abdominal pain, nausea, vomiting, diarrhea, and constipation, Back: Negative for injury and pain, : Negative for injury, bleeding, discharge, and swelling, Neuro: Negative for headache, weakness, numbness, tingling, and seizure, Psych: Negative for depression, anxiety, suicide ideation, homicidal ideation, and hallucinations, Allergy/Immunology: Negative for hives, rash, and allergies, Endocrine: Negative for neck swelling, polydipsia, polyuria, polyphagia, and marked weight changes, Hematologic/Lymphatic: Negative for swollen nodes, abnormal bleeding, and unusual bruising. 11:02 MS/extremity: Positive for decreased range of motion, pain, swelling, tenderness. 11:02 Skin: Positive for avulsion, erythema, of the left Achilles. Exam: 11:02 Constitutional: This is a well developed, well nourished patient who is awake, alert, mauricio and in no acute distress. Head/Face: Normocephalic, atraumatic. Eyes: Pupils equal round and reactive to light, extra-ocular motions intact. Lids and lashes normal. Conjunctiva and sclera are non-icteric and not injected. Cornea within normal limits. Periorbital areas with no swelling, redness, or edema. ENT: Nares patent. No nasal discharge, no septal abnormalities noted. Tympanic membranes are normal and external auditory canals are clear. Oropharynx with no redness, swelling, or masses, exudates, or evidence of obstruction, uvula midline. Mucous membranes moist. Neck: Trachea midline, no thyromegaly or masses palpated, and no cervical lymphadenopathy. Supple, full range of motion without nuchal rigidity, or vertebral point tenderness. No Meningismus. Chest/axilla: Normal chest wall appearance and motion. Nontender with no deformity. No lesions are appreciated. Cardiovascular: Regular rate and rhythm with a normal S1 and S2. No gallops, murmurs, or rubs. Normal PMI, no JVD. No pulse deficits. Respiratory: Lungs have equal breath sounds bilaterally, clear to auscultation and percussion. No rales, rhonchi or wheezes noted. No increased work of breathing, no retractions or nasal flaring. Abdomen/GI: Soft, non-tender, with normal bowel sounds. No distension or tympany. No guarding or rebound. No evidence of tenderness throughout. Back: No spinal tenderness. No costovertebral tenderness. Full range of motion. MS/ Extremity: Pulses equal, no cyanosis. Neurovascular intact. Full, normal range of motion. Neuro: Awake and alert, GCS 15, oriented to person, place, time, and situation. Cranial nerves II-XII grossly intact. Motor strength 5/5 in all extremities. Sensory grossly intact. Cerebellar exam normal. Normal gait. Psych: Awake, alert, with orientation to person, place and time. Behavior, mood, and affect are within normal limits. 11:02 Skin: Appearance: Color: erythematous, Temperature: warm, Moisture: normal moisture, petechiae, not noted, ecchymosis, not noted, swelling, noted on the right Achilles. Vital Signs: 10:27 BP 152 / 92; Pulse 82; Resp 18; Temp 98.7; Pulse Ox 98% on R/A; Weight 62.6 kg; Height aj1 5 ft. 2 in. (157.48 cm) (R); Pain 9/10; 11:51 BP 169 / 76; Pulse 75; Resp 18; Pulse Ox 100% on R/A; Pain 9/10; aj1 13:30 BP 138 / 82; Pulse 65; Resp 18; Pulse Ox 100% on R/A; aj1 14:30 BP 146 / 88; Pulse 60; Resp 18; Pulse Ox 100% ; aj1 15:30 BP 138 / 74; Pulse 66; Resp 18; Pulse Ox 100% ; aj1 16:30 BP 138 / 74; Pulse 66; Resp 18; Pulse Ox 100% on R/A; aj1 10:27 Body Mass Index 25.24 (62.60 kg, 157.48 cm) aj1 Laceration: 14:16 Wound Repair of 2.5cm ( 1.0in ) subcutaneous laceration to right leg and right mauricio Achilles. Irregularly shaped.. Skin/tissue flap noted.. Minimal contamination.. Distal neuro/vascular/tendon intact. Anesthesia: Local anesthetic administered with 5 mls of 1% lidocaine w/ Epi. Wound prep: Extensive cleansing by me, Copious irrigation. Skin closed with 5 4-0 Prolene using interrupted sutures and sterile technique. Dressed with Neosporin, pressure dressing. Patient tolerated well. MDM: 10:17 Patient medically screened. [facility] 11:06 Data reviewed: vital signs, nurses notes, lab test result(s), radiologic studies, plain mauricio films. 09/26 11:02 Order name: CBC with Diff; Complete Time: 13:41 mauricio 09/26 11:02 Order name: Comprehensive Metabolic Panel; Complete Time: 13:41 mauricio 09/26 11:54 Order name: Ankle Right 3 View; Complete Time: 13:41 EDMS 09/26 11:02 Order name: Dressing - Wound; Complete Time: 14:31 [facility] 09/26 11:02 Order name: Gloves, Sterile; Complete Time: 11:33 [facility] 09/26 11:02 Order name: Setup Suture Tray; Complete Time: 11:33 [facility] 09/26 11:02 Order name: Wound Care: clean soap and water, cover wet to dry; Complete Time: 11:33 [facility] Administered Medications: 12:39 Drug: Tetanus-Diphtheria Toxoid Adult 0.5 ml {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 Exp: aj1 11/16/2020. Lot #: [id number]. } Route: IM; Site: left deltoid; 13:00 Follow up: Response: No adverse reaction [facility] 13:23 Follow up: Response: No adverse reaction [facility] 12:39 Drug: Zosyn 3.375 grams Route: IVPB; Infused Over: 60 mins; Site: left antecubital; [facility] 15:00 Follow up: IV Status: Completed infusion; IV Intake: 100ml [facility] 14:00 Drug: Lidocaine-Epinephrine -1%: (1:100,000) 10 ml {Note: Administered by Dr. joe Ohara.} Volume: 20 ml; Route: Infiltration; 14:31 Drug: Doxycycline 200 mg Route: PO; [facility] 16:41 Follow up: Response: No adverse reaction 14:31 Drug: Bactrim (160 mg-800 mg (DS) 1 tablet Route: PO; [facility] 16:41 Follow up: Response: No adverse reaction 15:00 Drug: vancoMYCIN 1 grams Route: IVPB; Infused Over: 2 hrs; Site: left antecubital; [facility] 16:41 Follow up: IV Status: Completed infusion 16:41 Follow up: IV Status: Completed infusion; IV Intake: 250ml [facility] Disposition: 09/26/18 14:19 Discharged to Home. Impression: Laceration without foreign body, right lower leg, Type 2 diabetes mellitus. - Condition is Stable. - Discharge Instructions: Type 2 Diabetes Mellitus, Diagnosis, Adult, Laceration Care, Adult, Laceration Care, Adult, [id number], Type 2 Diabetes Mellitus, Diagnosis, Adult, [id number]. - Prescriptions for Bactroban 2 % Topical Ointment - Apply to affected area 1 application by TOPICAL route every 12 hours; 30 gram. Tylenol- Codeine #3 300-30 mg Oral Tablet - take 2 tablets by ORAL route every 6 hours As needed; 26 tablet. Doxycycline Hyclate 100 mg Oral Tablet - take 1 tablet by ORAL route every 12 hours; 20 tablet. Bactrim DS 800- 160 mg Oral Tablet - take 1 tablet by ORAL route every 12 hours for 10 days; 20 tablet. - Medication Reconciliation Form, Thank You Letter, Antibiotic Education, Prescription Opioid Use form. - Follow up: Private Physician; When: 2 - 3 days; Reason: Recheck today's complaints, Continuance of care, Re-evaluation by your physician. Follow up: Ignacio Braga MD; When: 2 - 3 days; Reason: Recheck today's complaints, Continuance of care, Re-evaluation by your physician. - Problem is new. - Symptoms have improved. Signatures: Dispatcher [employer] [facility] Ximena Cohen RN RN aj1 Se Ohara MD MD cha Smirch, Shelby, RN RN ss Corrections: (The following items were deleted from the chart) 11:54 11:03 Ankle Left 3 View+RAD.[email or web address].BRZ ordered. [facility] 14:22 14:19 09/26/2018 14:19 Discharged to Home. Impression: Laceration without foreign body, mauricio right lower leg; Type 2 diabetes mellitus. Condition is Stable. Forms are Medication Reconciliation Form, Thank You Letter, Antibiotic Education, Prescription Opioid Use. Follow up: Private Physician; When: 2 - 3 days; Reason: Recheck today's complaints, Continuance of care, Re-evaluation by your physician. Problem is new. Symptoms have improved. [facility] 16:41 14:22 09/26/2018 14:19 Discharged to Home. Impression: Laceration without foreign body, ss right lower leg; Type 2 diabetes mellitus. Condition is Stable. Discharge Instructions: Type 2 Diabetes Mellitus, Diagnosis, Adult, Laceration Care, Adult, Laceration Care, Adult, [id number], Type 2 Diabetes Mellitus, Diagnosis, Adult, [id number]. Prescriptions for Bactroban 2 % Topical Ointment - Apply to affected area 1 application by TOPICAL route every 12 hours; 30 gram, Tylenol-Codeine #3 300-30 mg Oral Tablet - take 2 tablets by ORAL route every 6 hours As needed; 26 tablet, Doxycycline Hyclate 100 mg Oral Tablet - take 1 tablet by ORAL route every 12 hours; 20 tablet, Bactrim DS 800-160 mg Oral Tablet - take 1 tablet by ORAL route every 12 hours for 10 days; 20 tablet. and Forms are Medication Reconciliation Form, Thank You Letter, Antibiotic Education, Prescription Opioid Use. Follow up: Private Physician; When: 2 - 3 days; Reason: Recheck today's complaints, Continuance of care, Re-evaluation by your physician. Follow up: Ignacio Braga; When: 2 - 3 days; Reason: Recheck today's complaints, Continuance of care, Re-evaluation by your physician. Problem is new. Symptoms have improved. mauricio
[2018-09-26] MEDS ORDERED: DOXYCYCLINE 100 MG CAP PO ONE (14:32)
[2018-09-26] MEDS ORDERED: SMZ./TMP. 800/160 MG TABLET ONE (14:32)
== END 2018-09-26 16:41 | disposition home or self-care (01) ==
LOC: ER 10:06
PROC: 0JQN0ZZ Repair Right Lower Leg Subcutaneous Tissue and Fascia, Open Approach (ICD-10-PCS; principal; 2018-09-26)
DX: S91.011A Laceration without foreign body, right ankle, initial encounter (principal); E11.9 Type 2 diabetes mellitus without complications; W20.8XXA Other cause of strike by thrown, projected or falling object, initial encounter; Y93.H2 Activity, gardening and landscaping; Y92.007 Garden or yard of unspecified non-institutional (private) residence as the place of occurrence of the external cause; Z23 Encounter for immunization
CPT/HCPCS: 36415; 80053; 85025; 90714; 96365; 96366; 96367; 99284; J2543; J3370

== ENCOUNTER 2019-04-07 12:18 | Emergency (ER) | payer OTHER, SELFPAY ==
[2019-04-07 13:27] LABS: Urine Blood NEGATIVE (NEG); Urine Glucose 1+ (NEG); Urine Protein NEGATIVE (NEG); Urine Specific Gravity 1.015 (1.005-1.030); Urine pH 6.5 (5.0-7.0)
[2019-04-07 14:02] LABS: Absolute Lymphocytes (CBC) 1.6 K/uL (0.7-4.9); Absolute Monocytes 0.3 K/uL (0.1-1.3); Absolute Neutrophil 3.1 K/uL (1.8-8.0); Basophils % 0.7 % (0-1.3); Eosinophils % 1.5 % (0-4.4); Hematocrit 36.4 % (36.0-45.0); Lymphocytes % 30.9 % (15.3-44.8); MPV 8.9 fL (7.6-11.3); Monocytes % 5.9 % (3.3-12.3); RBC Red Blood Cell Count 4.18 M/uL (3.86-4.86)
[2019-04-07 14:06] LABS: ALT/SGPT 40 U/L (12-78); AST/SGOT 45 U/L (15-37); Albumin 3.3 g/dL (3.4-5.0); Alkaline Phosphatase 107 U/L (45-117); BUN Blood Urea Nitrogen 8 mg/dL (7-18); Bicarbonate 32 mmol/L (21-32); Bilirubin Direct < 0.1 mg/dL (0-0.2); Bilirubin Total 0.4 mg/dL (0.2-1.0); Glucose Level 193 mg/dL (74-106); Lipase 203 U/L (73-393); Potassium 3.3 mmol/L (3.5-5.1); Protein, Total 6.9 g/dL (6.4-8.2); Sodium Level 139 mmol/L (136-145)
--- NOTE | 2019-04-07 14:49 | RAD REPORT ---
EXAM DESCRIPTION: CT - Abdomen Pelvis W Contrast - 04/07/2019 2:23 pm CLINICAL HISTORY: Abdominal pain, abdominal distention, nausea COMPARISON: CT study July 2018 TECHNIQUE: Biphasic, helical CT imaging of the abdomen and pelvis was performed following 100 ml non -ionic IV contrast. Oral contrast was given. All CT scans are performed using dose optimization technique as appropriate and may include automated exposure control or mA/KV adjustment according to patient size. FINDINGS: No suspicious findings in the lung bases. No pericardial thickening or effusion. Liver size is upper normal. Attenuation is borderline fatty infiltration. There is no nodularity of t he liver capsule and no focal liver lesion identifiable. No portal vein abnormality. Spleen is also upper normal without a focal abnormality. There is no mass or focal abnormality of the pancreatic parenchyma. No peripancreatic stranding. Few small nonspecific lymph nodes are present po sition between the gastrohepatic ligament region and the body of the pancreas. These lymph nodes are up to 13 mm in size. Gallbladder and biliary tree are also without suspicious finding. Symmetric renal function is seen with no hydronephrosis or suspicious renal mass. No pyelonephritis o r acute parenchymal process. No bladder abnormalities. No adrenal abnormality. Uterus and ovaries yoon w no suspicious findings. No gastric dilatation or wall thickening. Prominent small bowel loops are present without acute obstr uction. No focal small bowel mass. Minimal diverticulosis is seen in the colon. No acute colon proces s is identifiable. No appendicitis findings. No free air, free fluid or inflammatory stranding. No hernia, mass or omental thickening. No bulky lymphadenopathy seen. The patient does have multiple central mesenteric lymph nodes up to 13 mm in s ize. No abnormal periaortic lymphadenopathy. Disc and bony degenerative changes are present. IMPRESSION: No bowel obstruction, free air or surgically emergent finding. Multiple central mesenteries and peripancreatic lymph nodes most likely reactive from nonspecific ent eritis. No focal liver lesion. Liver is upper normal in size with borderline attenuation for fatty infiltrati on.
--- NOTE | 2019-04-07 16:18 | EDPHYS ---
Physician Documentation [facility] Name: Elaine Rowland Age: 48 yrs Sex: Female : 1970 Arrival Date: 04/07/2019 Time: 12:20 Bed 27 Private MD: ED Physician Shade Carney HPI: 04/07 14:06 This 48 yrs old Female presents to ER via EMS with complaints of Abdominal pm1 Swelling. 14:06 The patient presents with abdominal pain that is diffuse, abdominal distention that is pm1 diffuse. Onset: The symptoms/episode began/occurred 1 year(s) ago, and became worse 3 month(s) ago. The symptoms do not radiate. Associated signs and symptoms: Pertinent positives: diarrhea, vomiting, Pertinent negatives: chest pain, shortness of breath. The symptoms are described as achy. Modifying factors: The symptoms are alleviated by nothing, the symptoms are aggravated by nothing. Severity of pain: in the emergency department the pain is actually worse. The patient has not recently seen a physician. MANAGER BUSINESS: 16:57 LMP N/A - Post-menopause ca1 Historical: - Allergies: 12:25 Ibuprofen; ss - Home Meds: 12:25 invokana [Active]; ss 16:55 gabapentin Oral [Active]; trufix [Active]; Glimepiride Oral [Active]; mg2 - PMHx: 12:25 acid reflux; Diabetes - NIDDM; Hyperlipidemia; abd hernia; ss - PSHx: 12:25 Carpal Tunnel Repair; ss - Immunization history:: Adult Immunizations up to date. - Social history:: Smoking status: Patient/guardian denies using tobacco. - Ebola Screening: : Patient denies exposure to infectious person Patient denies travel to an Ebola-affected area in the 21 days before illness onset. ROS: 14:06 Constitutional: Negative for fever, chills, and weight loss, Eyes: Negative for injury, pm1 pain, redness, and discharge, ENT: Negative for injury, pain, and discharge, Neck: Negative for injury, pain, and swelling, Cardiovascular: Negative for chest pain, palpitations, and edema, Respiratory: Negative for shortness of breath, cough, wheezing, and pleuritic chest pain. 14:06 Back: Negative for injury and pain, : Negative for injury, bleeding, discharge, and swelling, MS/Extremity: Negative for injury and deformity, Skin: Negative for injury, rash, and discoloration, Neuro: Negative for headache, weakness, numbness, tingling, and seizure. 14:06 Abdomen/GI: Positive for abdominal pain, nausea, vomiting, and diarrhea, Negative for constipation, hematemesis, black/tarry stool, rectal pain, rectal bleeding. Exam: 14:06 Constitutional: This is a well developed, well nourished patient who is awake, alert, pm1 and in no acute distress. Head/Face: Normocephalic, atraumatic. Eyes: Pupils equal round and reactive to light, extra-ocular motions intact. Lids and lashes normal. Conjunctiva and sclera are non-icteric and not injected. Cornea within normal limits. Periorbital areas with no swelling, redness, or edema. ENT: Nares patent. No nasal discharge, no septal abnormalities noted. Tympanic membranes are normal and external auditory canals are clear. Oropharynx with no redness, swelling, or masses, exudates, or evidence of obstruction, uvula midline. Mucous membranes moist. Neck: Trachea midline, no thyromegaly or masses palpated, and no cervical lymphadenopathy. Supple, full range of motion without nuchal rigidity, or vertebral point tenderness. No Meningismus. Chest/axilla: Normal chest wall appearance and motion. Nontender with no deformity. No lesions are appreciated. Cardiovascular: Regular rate and rhythm with a normal S1 and S2. No gallops, murmurs, or rubs. Normal PMI, no JVD. No pulse deficits. Respiratory: Lungs have equal breath sounds bilaterally, clear to auscultation and percussion. No rales, rhonchi or wheezes noted. No increased work of breathing, no retractions or nasal flaring. 14:06 Back: No spinal tenderness. No costovertebral tenderness. Full range of motion. Skin: Warm, dry with normal turgor. Normal color with no rashes, no lesions, and no evidence of cellulitis. MS/ Extremity: Pulses equal, no cyanosis. Neurovascular intact. Full, normal range of motion. 14:06 Abdomen/GI: Inspection: distension, that is mild, Bowel sounds: normal, Palpation: abdomen is soft and non-tender, mass, is not appreciated, rebound tenderness, is not appreciated. 14:06 Neuro: Orientation: is normal, Motor: is normal, moves all fours. Vital Signs: 12:25 BP 184 / 85; Pulse 66; Resp 17; Temp 97.5(O); Pulse Ox 100% on R/A; Weight 68.04 kg; ss Height 5 ft. 2 in. (157.48 cm); Pain 10/10; 14:56 BP 176 / 60; Pulse 58; Resp 18; Temp 97.6; Pulse Ox 100% on R/A; mg2 15:15 BP 161 / 76; Pulse 60; Resp 17 S; Temp 97.8(O); Pulse Ox 100% on R/A; ca1 16:09 BP 163 / 71; Pulse 60; Resp 18; Temp 97.2; Pulse Ox 100% on R/A; mg2 16:56 BP 162 / 83; Pulse 62; Resp 17 S; Temp 97.6(O); Pulse Ox 100% on R/A; ca1 12:25 Body Mass Index 27.44 (68.04 kg, 157.48 cm) ss MDM: 13:26 Patient medically screened. pm1 16:16 Data reviewed: vital signs. Data interpreted: Pulse oximetry: on room air is 100 %. pm1 Interpretation: normal. Counseling: I had a detailed discussion with the patient and/or guardian regarding: the historical points, exam findings, and any diagnostic results supporting the discharge/admit diagnosis, lab results, radiology results, the need for outpatient follow up, to return to the emergency department if symptoms worsen or persist or if there are any questions or concerns that arise at home. 04/07 12:52 Order name: Urine Dipstick--Ancillary (enter results); Complete Time: 13:31 eb 04/07 12:52 Order name: Urine --Ancillary (enter results); Complete Time: 13:31 eb 04/07 13:11 Order name: Basic Metabolic Panel pm1 04/07 13:11 Order name: CBC with Diff pm1 04/07 13:11 Order name: Creatinine for Radiology; Complete Time: 14:31 pm1 04/07 13:11 Order name: Hepatic Function; Complete Time: 14:31 pm1 04/07 13:11 Order name: Lipase; Complete Time: 14:31 pm1 04/07 13:12 Order name: Basic Metabolic Panel; Complete Time: 14:31 [facility] 04/07 13:12 Order name: CBC with Automated Diff; Complete Time: 14:31 [facility] 04/07 13:16 Order name: EKG Electrocardiogram [facility] 04/07 13:42 Order name: CT Abd/Pelvis - W/Contrast: IV contrast only; Complete Time: 14:56 pm1 04/07 12:53 Order name: Urine Dipstick-Ancillary (obtain specimen); Complete Time: 12:53 04/07 12:53 Order name: Urine Test (obtain specimen); Complete Time: 12:53 04/07 13:11 Order name: IV Saline Lock; Complete Time: 13:23 pm1 04/07 13:11 Order name: Labs collected and sent; Complete Time: 13:23 pm1 Administered Medications: 16:27 Drug: Zofran 4 mg Route: IVP; Site: right antecubital; ca1 16:30 Drug: morphine 4 mg Route: IVP; Site: right antecubital; ca1 Disposition: 04/07/19 16:17 Discharged to Home. Impression: Unspecified abdominal pain, Diarrhea, unspecified, Viral gastroenteritis. - Condition is Stable. - Discharge Instructions: Abdominal Pain, Adult, Food Choices to Help Relieve Diarrhea, Adult, Diarrhea, Adult. - Prescriptions for Bentyl 20 mg Oral Tablet - take 2 tablets by ORAL route every 6 hours As needed; 20 tablet. Tramadol 50 mg Oral Tablet - take 1 tablet by ORAL route every 8 hours as needed; 12 tablet. - Medication Reconciliation Form, Thank You Letter, Antibiotic Education, Prescription Opioid Use form. - Follow up: Emergency Department; When: As needed; Reason: Worsening of condition. Follow up: Private Physician; When: 2 - 3 days; Reason: Recheck today's complaints, Continuance of care, Re-evaluation by your physician. - Problem is new. - Symptoms have improved. Addendum: 04/08/2019 19:29 Co-signature as Attending Physician, Shade Carney MD I agree with the assessment and k dr plan of care. Signatures: Dispatcher [employer] [facility] Shade Carney MD MD kdr Smirch, Shelby, RN RN ss Shelton Vidal, FORKLIFT TRUCK OPERATOR FORKLIFT TRUCK OPERATOR pm1 Oskar Young RN RN mg2 Gabriela Hinds RN RN ca1 Corrections: (The following items were deleted from the chart) 04/07 13:28 13:24 UA MICROSCOPIC+U.LAB.BRZ ordered. EDMS EDMS 16:25 16:17 04/07/2019 16:17 Discharged to Home. Impression: Unspecified abdominal pain; pm1 Diarrhea, unspecified. Condition is Stable. Forms are Medication Reconciliation Form, Thank You Letter, Antibiotic Education, Prescription Opioid Use. Follow up: Emergency Department; When: As needed; Reason: Worsening of condition. Follow up: Private Physician; When: 2 - 3 days; Reason: Recheck today's complaints, Continuance of care, Re-evaluation by your physician. Problem is new. Symptoms have improved. pm1 17:01 16:25 04/07/2019 16:17 Discharged to Home. Impression: Unspecified abdominal pain; ca1 Diarrhea, unspecified; Viral gastroenteritis. Condition is Stable. Discharge Instructions: Abdominal Pain, Adult, Food Choices to Help Relieve Diarrhea, Adult, Diarrhea, Adult. Prescriptions for Bentyl 20 mg Oral Tablet - take 2 tablets by ORAL route every 6 hours As needed; 20 tablet. and Forms are Medication Reconciliation Form, Thank You Letter, Antibiotic Education, Prescription Opioid Use. Follow up: Emergency Department; When: As needed; Reason: Worsening of condition. Follow up: Private Physician; When: 2 - 3 days; Reason: Recheck today's complaints, Continuance of care, Re-evaluation by your physician. Problem is new. Symptoms have improved. pm1
--- NOTE | 2019-04-07 16:18 | ER ---
Nurse's Notes [facility] Name: Elaine Rowland Age: 48 yrs Sex: Female : 1970 Arrival Date: 04/07/2019 Time: 12:20 Bed 27 Private MD: Diagnosis: Unspecified abdominal pain;Diarrhea, unspecified;Viral gastroenteritis Presentation: 04/07 12:23 Presenting complaint: Patient states: upper abd swelling/ burning that began 3 months ss ago that has progressed with nausea now. Pt reports she used to drink heavily in the past, but quit a long time ago. Also reports she was diagnosed with a hernia, but never followed up with PCP or specialist. Transition of care: patient was not received from another setting of care. Onset of symptoms is unknown. Risk Assessment: Do you want to hurt yourself or someone else? Patient reports no desire to harm self or others. Initial Sepsis Screen: Does the patient meet any 2 criteria? No. Patient's initial sepsis screen is negative. Does the patient have a suspected source of infection? No. Patient's initial sepsis screen is negative. Care prior to arrival: None. 12:23 Method Of Arrival: EMS: [facility] ss 12:23 Acuity: SHAINA 3 ss MANAGER MARKET: 16:57 LMP N/A - Post-menopause ca1 Historical: - Allergies: 12:25 Ibuprofen; ss - Home Meds: 12:25 invokana [Active]; ss 16:55 gabapentin Oral [Active]; trufix [Active]; Glimepiride Oral [Active]; mg2 - PMHx: 12:25 acid reflux; Diabetes - NIDDM; Hyperlipidemia; abd hernia; ss - PSHx: 12:25 Carpal Tunnel Repair; ss - Immunization history:: Adult Immunizations up to date. - Social history:: Smoking status: Patient/guardian denies using tobacco. - Ebola Screening: : Patient denies exposure to infectious person Patient denies travel to an Ebola-affected area in the 21 days before illness onset. Screenin:50 Abuse screen: Denies threats or abuse. Denies injuries from another. Nutritional ss screening: No deficits noted. Tuberculosis screening: Never had TB. Fall Risk None identified. Assessment: 12:50 General: Appears uncomfortable, Behavior is calm, cooperative, Denies fever, fatigue, ss chills. Pain: Complains of pain in right upper quadrant and left upper quadrant Pain currently is 10 out of 10 on a pain scale. Quality of pain is described as burning, tender, Pain began 3 months ago Is continuous. Neuro: Level of Consciousness is awake, alert, obeys commands, Oriented to person, place, time, situation. Cardiovascular: Capillary refill < 3 seconds is brisk in bilateral fingers. Respiratory: Airway is patent Respiratory effort is even, unlabored, Respiratory pattern is regular, symmetrical. GI: Abdomen is round distended, Bowel sounds present X 4 quads. Abdomen is tender to palpation in right upper quadrant and left upper quadrant. GI: Reports bloating, nausea, Patient currently denies constipation, diarrhea. : Denies burning with urination, urinary frequency. EENT: Nares are clear Oral mucosa is moist. Throat is clear. Derm: Skin is intact, is healthy with good turgor, Skin is dry, Skin is pink, warm \T\ dry. normal. Musculoskeletal: Circulation, motion, and sensation intact. Range of motion: intact in all extremities, Swelling absent. 13:27 Reassessment: Patient appears in no apparent distress at this time. Patient is alert, ss oriented x 3, equal unlabored respirations, skin warm/dry/pink. labs sent, abd distended, soft. Call light remains within reach. 14:24 Reassessment: Patient appears in no apparent distress at this time. Patient and/or ca1 family updated on plan of care and expected duration. Pain level reassessed. Patient is alert, oriented x 3, equal unlabored respirations, skin warm/dry/pink. 15:15 Reassessment: Patient appears in no apparent distress at this time. Patient is alert, ca1 oriented x 3, equal unlabored respirations, skin warm/dry/pink. 16:30 Reassessment: Pt c/o of pain at lower back of 710. Notified VALDEZ Peoples. Meds given. ca1 16:56 Reassessment: Patient appears in no apparent distress at this time. Patient is alert, ca1 oriented x 3, equal unlabored respirations, skin warm/dry/pink. Pt reported that her cousin will pick her up and drive her home upon discharge Patient states feeling better. Vital Signs: 12:25 BP 184 / 85; Pulse 66; Resp 17; Temp 97.5(O); Pulse Ox 100% on R/A; Weight 68.04 kg; ss Height 5 ft. 2 in. (157.48 cm); Pain 10/10; 14:56 BP 176 / 60; Pulse 58; Resp 18; Temp 97.6; Pulse Ox 100% on R/A; mg2 15:15 BP 161 / 76; Pulse 60; Resp 17 S; Temp 97.8(O); Pulse Ox 100% on R/A; ca1 16:09 BP 163 / 71; Pulse 60; Resp 18; Temp 97.2; Pulse Ox 100% on R/A; mg2 16:56 BP 162 / 83; Pulse 62; Resp 17 S; Temp 97.6(O); Pulse Ox 100% on R/A; ca1 12:25 Body Mass Index 27.44 (68.04 kg, 157.48 cm) ED Course: 12:20 Patient arrived in ED. ss 12:24 Triage completed. ss 12:34 EKG done, by information technology consultant. reviewed by Shade Carney MD. at1 12:38 Gabriela Hinds, NADIA is Primary Nurse. ca1 12:48 Arm band placed on. ca1 12:50 Shelton Vidal, VALDEZ is PHCP. pm1 12:50 Shade Carney MD is Attending Physician. pm1 12:50 Patient has correct armband on for positive identification. Bed in low position. Call ss light in reach. 12:50 Placed in gown. supply specialist on. Pulse ox on. NIBP on. ca1 13:27 Inserted saline lock: 20 gauge in right antecubital area, using aseptic technique. ss Blood collected. 14:22 CT completed. Patient tolerated procedure well. Patient moved to CT via wheelchair. ls3 Patient moved back from CT. 14:24 CT Abd/Pelvis - W/Contrast: IV contrast only In Process Unspecified. EDMS 16:54 No provider procedures requiring assistance completed. IV discontinued, intact, mg2 bleeding controlled, No redness/swelling at site. Pressure dressing applied. Administered Medications: 16:27 Drug: Zofran 4 mg Route: IVP; Site: right antecubital; ca1 16:30 Drug: morphine 4 mg Route: IVP; Site: right antecubital; ca1 Outcome: 16:17 Discharge ordered by . pm1 16:59 Discharged to home ambulatory. ca1 16:59 Condition: stable 16:59 Discharge instructions given to patient, Instructed on discharge instructions, follow up and referral plans. medication usage, Demonstrated understanding of instructions, follow-up care, medications, Prescriptions given X 2. 17:01 Patient left the ED. ca1 Signatures: Dispatcher [employer] EDMS Dory Bunch RN RN ss Azalea Maza, media theorist and author of EKG Tat1 Shelton Vidal NP NURSE EMERGENCY ROOM pm1 Oskar Young RN RN mg2 Antonio Mcallister ls3 Gabriela Hinds RN RN ca1 Corrections: (The following items were deleted from the chart) 14:58 14:56 Pulse 58bpm; Resp 18bpm; Pulse Ox 100% RA; Temp 97.6F; mg2 mg2 16:59 12:48 Arm band placed on ca1 ca1 17:01 16:30 Reassessment: Pt c/o of pain at lower back of 7/10. Notified VALDEZ Peoples. Meds ca1 given. ca1 17:01 16:56 Reassessment: Patient appears in no apparent distress at this time. Patient is ca1 alert, oriented x 3, equal unlabored respirations, skin warm/dry/pink. Patient states feeling better. ca1
[2019-04-07] MEDS ORDERED: ONDANSETRON 4 MG/2 ML VIAL ONE (16:37)
[2019-04-07] MEDS ORDERED: MORPHINE 4 MG/ML SYR ONE (16:37)
--- NOTE | 2019-04-08 09:22 | EKG ---
Test Date: 2019-04-07 Test Time: 12:34:32 Box Finisher: SHAISTA MEASUREMENT RESULTS: Intervals: Rate: 64 GA: 164 QRSD: 82 QT: 440 QTc: 453 Raymond: P: 29 GA: 164 QRS: -3 T: 38 INTERPRETIVE STATEMENTS: Normal sinus rhythm Normal ECG Compared to ECG 03/16/2017 14:05:11 No significant changes Electronically Signed On 04-08-19 09:21:04 CDT by Kiko Grier
== END 2019-04-07 17:01 | disposition home or self-care (01) ==
LOC: ER 12:18
DX: K52.9 Noninfective gastroenteritis and colitis, unspecified (principal); E11.9 Type 2 diabetes mellitus without complications; E78.5 Hyperlipidemia, unspecified
CPT/HCPCS: 36415; 74177; 80048; 80076; 81003; 81025; 83690; 85025; 93005; 96374; 96375; 99285; J2405; Q9967

== ENCOUNTER 2020-07-01 12:48 | Emergency (ER) | payer OTHER ==
--- NOTE | 2020-07-01 15:24 | EDPHYS ---
Physician Documentation [facility] Name: Elaine Rowland Age: 49 yrs Sex: Female : 1970 Arrival Date: 07/01/2020 Time: 12:52 Bed 25 Private MD: ED Physician Se Ohara HPI: 07/01 15:18 This 49 yrs old Female presents to ER via EMS with complaints of Poison niya mauricio exposure, right toe 3,4,5 numbness. 15:18 The patient's rash thought to be caused by Dermatitis Contact allergy. The rash is mauricio located on the body diffusely. The rash can be described as crusted, diffuse, erythematous, scarlatiniform, urticarial. Onset: The symptoms/episode began/occurred 2 day(s) ago. Associated signs and symptoms: Pertinent positives: burning sensation, itching. Severity of symptoms: At their worst the symptoms were mild moderate in the emergency department the symptoms are unchanged. Treatment given at home: Benadryl. The patient has experienced similar episodes in the past, several times. Historical: - Allergies: 13:03 Ibuprofen; sv 13:03 hydrocodone; sv - PMHx: 13:03 abd hernia; acid reflux; Diabetes - NIDDM; Hyperlipidemia; sv - PSHx: 13:03 Carpal Tunnel Repair; sv - Immunization history:: Adult Immunizations unknown. - Social history:: Smoking status: . - Family history:: not pertinent. ROS: 15:18 Constitutional: Negative for fever, chills, and weight loss, Eyes: Negative for injury, mauricio pain, redness, and discharge, ENT: Negative for injury, pain, and discharge, Cardiovascular: Negative for chest pain, palpitations, and edema, Respiratory: Negative for shortness of breath, cough, wheezing, and pleuritic chest pain, Abdomen/GI: Negative for abdominal pain, nausea, vomiting, diarrhea, and constipation, Back: Negative for injury and pain, : Negative for injury, bleeding, discharge, and swelling, MS/Extremity: Negative for injury and deformity, Neuro: Negative for headache, weakness, numbness, tingling, and seizure, Psych: Negative for depression, anxiety, suicide ideation, homicidal ideation, and hallucinations, Allergy/Immunology: Negative for hives, rash, and allergies, Endocrine: Negative for neck swelling, polydipsia, polyuria, polyphagia, and marked weight changes, Hematologic/Lymphatic: Negative for swollen nodes, abnormal bleeding, and unusual bruising. 15:18 Neck: Positive for rash, of the face, back and chest. Exam: 15:18 Constitutional: This is a well developed, well nourished patient who is awake, alert, muaricio and in no acute distress. Head/Face: Normocephalic, atraumatic. Eyes: Pupils equal round and reactive to light, extra-ocular motions intact. Lids and lashes normal. Conjunctiva and sclera are non-icteric and not injected. Cornea within normal limits. Periorbital areas with no swelling, redness, or edema. ENT: Nares patent. No nasal discharge, no septal abnormalities noted. Tympanic membranes are normal and external auditory canals are clear. Oropharynx with no redness, swelling, or masses, exudates, or evidence of obstruction, uvula midline. Mucous membranes moist. Neck: Trachea midline, no thyromegaly or masses palpated, and no cervical lymphadenopathy. Supple, full range of motion without nuchal rigidity, or vertebral point tenderness. No Meningismus. Chest/axilla: Normal chest wall appearance and motion. Nontender with no deformity. No lesions are appreciated. Cardiovascular: Regular rate and rhythm with a normal S1 and S2. No gallops, murmurs, or rubs. Normal PMI, no JVD. No pulse deficits. Respiratory: Lungs have equal breath sounds bilaterally, clear to auscultation and percussion. No rales, rhonchi or wheezes noted. No increased work of breathing, no retractions or nasal flaring. Abdomen/GI: Soft, non-tender, with normal bowel sounds. No distension or tympany. No guarding or rebound. No evidence of tenderness throughout. Back: No spinal tenderness. No costovertebral tenderness. Full range of motion. Pelvic Exam: Normal external genitalia. Speculum exam with closed cervical os, no discharge or bleeding noted. Bimanual exam with normal adnexa, no adnexal or cervical motion tenderness. Normal uterus. Female : Normal external genitalia. Neuro: Awake and alert, GCS 15, oriented to person, place, time, and situation. Cranial nerves II-XII grossly intact. Motor strength 5/5 in all extremities. Sensory grossly intact. Cerebellar exam normal. Normal gait. Psych: Awake, alert, with orientation to person, place and time. Behavior, mood, and affect are within normal limits. 15:18 Skin: Appearance: Color: pale, rash a mild rash is noted, rash can be described as erythematous, raised, urticarial, on the right arm, left arm, posterior chest and back. Vital Signs: 12:54 BP 140 / 73; Pulse 68; Resp 16; Temp 98.7; Pulse Ox 98% ; Weight 58.97 kg; Height 5 ft. sv 3 in. (160.02 cm); 13:35 BP 122 / 67; Pulse 64; Resp 16; Pulse Ox 100% ; bp 14:22 BP 132 / 67; Pulse 58; Resp 15; Pulse Ox 100% ; bp 15:58 BP 130 / 72; Pulse 71; Resp 16; Temp 98.5; Pulse Ox 97% ; bp 12:54 Body Mass Index 23.03 (58.97 kg, 160.02 cm) sv MDM: 14:38 Patient medically screened. [facility] 15:22 Data reviewed: vital signs, nurses notes. mauricio Administered Medications: 15:30 Drug: Benadryl 50 mg Route: PO; bp 15:58 Follow up: Response: Marked relief of symptoms bp 15:30 Drug: predniSONE 40 mg Route: PO; bp 15:57 Follow up: Response: No adverse reaction bp 15:44 Not Given (MED UNAVAILABLE): Pepcid 40 mg PO once bp Disposition: 07/01/20 15:23 Discharged to Home. Impression: Allergic contact dermatitis, Irritant contact dermatitis, Type 2 diabetes mellitus. - Condition is Stable. - Discharge Instructions: Type 2 Diabetes Mellitus, Diagnosis, Adult, Poison Niya Dermatitis, Poison [place] Dermatitis, Poison Niya Dermatitis, [id number], Poison [place] Dermatitis, Ocri-wh-Dayh, Type 2 Diabetes Mellitus, Diagnosis, Adult, Thve-yr-Feds, Type 2 Diabetes Mellitus, Self Care, Adult. - Prescriptions for Benadryl 25 mg Oral Capsule - take 1 capsule by ORAL route every 6 hours As needed; 30 tablet. Pepcid 20 mg Oral Tablet - take 1 tablet by ORAL route every 12 hours for 10 days; 20 tablet. Prednisone 20 mg Oral Tablet - take 2 tablet by ORAL route once daily for 5 days; 10 tablet. - Medication Reconciliation Form, Thank You Letter, Antibiotic Education, Prescription Opioid Use form. - Follow up: Private Physician; When: 2 - 3 days; Reason: Recheck today's complaints, Continuance of care, Re-evaluation by your physician. - Problem is new. - Symptoms have improved. Signatures: Jayla Melton, RN RN Se Salas MD MD cha Peltier, Brian, RN RN bp Corrections: (The following items were deleted from the chart) 15:25 15:23 07/01/2020 15:23 Discharged to Home. Impression: Allergic contact dermatitis; mauricio Irritant contact dermatitis. Condition is Stable. Forms are Medication Reconciliation Form, Thank You Letter, Antibiotic Education, Prescription Opioid Use. Follow up: Private Physician; When: 2 - 3 days; Reason: Recheck today's complaints, Continuance of care, Re-evaluation by your physician. Problem is new. Symptoms have improved. mauricio 15:59 15:25 07/01/2020 15:23 Discharged to Home. Impression: Allergic contact dermatitis; bp Irritant contact dermatitis; Type 2 diabetes mellitus. Condition is Stable. Discharge Instructions: Type 2 Diabetes Mellitus, Diagnosis, Adult, Poison Niya Dermatitis, Poison [place] Dermatitis, Poison Niya Dermatitis, [id number]-Mewc, Poison [place] Dermatitis, Jyzi-rw-Hffi, Type 2 Diabetes Mellitus, Diagnosis, Adult, Jsdm-[id number]-Trbk, Type 2 Diabetes Mellitus, Self Care, Adult. Prescriptions for Benadryl 25 mg Oral Capsule - take 1 capsule by ORAL route every 6 hours As needed; 30 tablet, Pepcid 20 mg Oral Tablet - take 1 tablet by ORAL route every 12 hours for 10 days; 20 tablet, Prednisone 20 mg Oral Tablet - take 2 tablet by ORAL route once daily for 5 days; 10 tablet. and Forms are Medication Reconciliation Form, Thank You Letter, Antibiotic Education, Prescription Opioid Use. Follow up: Private Physician; When: 2 - 3 days; Reason: Recheck today's complaints, Continuance of care, Re-evaluation by your physician. Problem is new. Symptoms have improved. mauricio
--- NOTE | 2020-07-01 15:24 | ER ---
Nurse's Notes [facility] Name: Elaine Rowland Age: 49 yrs Sex: Female : 1970 Arrival Date: 07/01/2020 Time: 12:52 Bed 25 Private MD: Diagnosis: Allergic contact dermatitis;Irritant contact dermatitis;Type 2 diabetes mellitus Presentation: 07/01 12:54 Chief complaint: EMS states: poison jasmin exposure all over the body yesterday and today sv got bit by a dog. Coronavirus screen: Client denies travel out of the [place] in the last 14 days. At this time, the client does not indicate any symptoms associated with coronavirus-19. Ebola Screen: No symptoms or risks identified at this time. Initial Sepsis Screen: Does the patient meet any 2 criteria? No. Patient's initial sepsis screen is negative. Does the patient have a suspected source of infection? No. Patient's initial sepsis screen is negative. Risk Assessment: Do you want to hurt yourself or someone else? Patient reports no desire to harm self or others. Onset of symptoms was June 30, 2020. 12:54 Method Of Arrival: EMS: [facility] sv 12:54 Acuity: SHAINA 4 sv Triage Assessment: 13:03 General: Appears in no apparent distress. comfortable, Behavior is calm, cooperative, sv appropriate for age. Pain: Denies pain. Neuro: Level of Consciousness is awake, alert, obeys commands, Oriented to person, place, time, situation, Moves all extremities. Full function Gait is steady. Neuro: Reports numbness in right third toe, right fourth toe and right fifth toe. Respiratory: Respiratory effort is even, unlabored, Respiratory pattern is regular, symmetrical. Derm: Skin is pink, warm \T\ dry. Rash noted that is itchy, red, raised, urticaria, on back, chest, abdomen, right arm, left arm, right leg, left leg and neck. Musculoskeletal: Range of motion: intact in all extremities. Historical: - Allergies: 13:03 Ibuprofen; sv 13:03 hydrocodone; sv - PMHx: 13:03 abd hernia; acid reflux; Diabetes - NIDDM; Hyperlipidemia; sv - PSHx: 13:03 Carpal Tunnel Repair; sv - Immunization history:: Adult Immunizations unknown. - Social history:: Smoking status: . - Family history:: not pertinent. Screenin:04 Abuse screen: Denies threats or abuse. Denies injuries from another. Nutritional sv screening: No deficits noted. Tuberculosis screening: No symptoms or risk factors identified. Fall Risk None identified. Assessment: 13:05 General: SEE TRIAGE NOTE. bp 14:22 Reassessment: VS STABLE ON MONITOR. AIRWAY REMAINS PATENT. bp 15:58 Reassessment: PT D/C HOME AMBULATORY, DX WITH CONTACT DERMATITIS. bp Vital Signs: 12:54 BP 140 / 73; Pulse 68; Resp 16; Temp 98.7; Pulse Ox 98% ; Weight 58.97 kg; Height 5 ft. sv 3 in. (160.02 cm); 13:35 BP 122 / 67; Pulse 64; Resp 16; Pulse Ox 100% ; bp 14:22 BP 132 / 67; Pulse 58; Resp 15; Pulse Ox 100% ; bp 15:58 BP 130 / 72; Pulse 71; Resp 16; Temp 98.5; Pulse Ox 97% ; bp 12:54 Body Mass Index 23.03 (58.97 kg, 160.02 cm) sv ED Course: 12:52 Patient arrived in ED. sv 12:55 Triage completed. sv 13:03 Arm band placed on. sv 13:04 Patient has correct armband on for positive identification. Bed in low position. Call sv light in reach. Side rails up X2. Pulse ox on. NIBP on. 13:04 Report given to Beau ZUNIGA. sv 13:07 Beau Estes, NADIA is Primary Nurse. bp 14:38 Se Ohara MD is Attending Physician. mauricio 15:59 No provider procedures requiring assistance completed. Patient did not have IV access bp during this emergency room visit. Administered Medications: 15:30 Drug: Benadryl 50 mg Route: PO; bp 15:58 Follow up: Response: Marked relief of symptoms bp 15:30 Drug: predniSONE 40 mg Route: PO; bp 15:57 Follow up: Response: No adverse reaction bp 15:44 Not Given (MED UNAVAILABLE): Pepcid 40 mg PO once bp Outcome: 15:23 Discharge ordered by . mauricio 15:59 Discharged to home ambulatory. bp 15:59 Condition: stable 15:59 Discharge instructions given to patient, Instructed on discharge instructions, follow up and referral plans. medication usage, Demonstrated understanding of instructions, follow-up care, medications, Prescriptions given X 3. 15:59 Patient left the ED. bp Signatures: Jayla Melton, RN RN Se Salas MD MD cha Peltier, Brian, RN RN bp
[2020-07-01] MEDS ORDERED: DIPHENHYDRAMINE 25 MG TAB/CAP ONE (15:48)
[2020-07-01] MEDS ORDERED: predniSONE 20 MG TAB ONE (15:49)
[2020-07-01 16:08] VITALS: BP 130/72; TEMP 98.5; O2SAT 97
== END 2020-07-01 15:59 | disposition home or self-care (01) ==
LOC: ER 12:48
DX: L23.9 Allergic contact dermatitis, unspecified cause (principal); L24.7 Irritant contact dermatitis due to plants, except food; E11.9 Type 2 diabetes mellitus without complications; Z88.5 Allergy status to narcotic agent; Z88.6 Allergy status to analgesic agent
CPT/HCPCS: 99284; J7512

== ENCOUNTER 2021-01-17 02:10 | Inpatient (IN) | payer OTHER ==
[2021-01-17 02:53] LABS: Basophils % 0.4 % (0-1.3); Hematocrit 43.7 % (36.0-45.0); Lymphocytes % 15.3 % (15.3-44.8); MPV 9.2 fL (7.6-11.3); RBC Red Blood Cell Count 4.63 M/uL (3.86-4.86)
[2021-01-17 02:59] LABS: Protime INR 0.85
[2021-01-17] MEDS ORDERED: LORazepam 2 MG/ML VIAL ONE ×2 (03:03→11:20)
[2021-01-17 03:22] LABS: Barbiturates NEGATIVE (NEGATIVE); Benzodiazepines POSITIVE (NEGATIVE); Cocaine NEGATIVE (NEGATIVE); METHAMPHETAM NEGATIVE (NEGATIVE); Methadone NEGATIVE (NEGATIVE); Opiates NEGATIVE (NEGATIVE); Phencyclidine NEGATIVE (NEGATIVE); THC Cannibis NEGATIVE (NEGATIVE)
[2021-01-17] MEDS ORDERED: LEVETIRACETAM 500 MG/5 ML VIAL IV ONE (03:28)
[2021-01-17] MEDS ORDERED: NA CHLORIDE 0.9% 100 ML ONE ×2 (03:28→04:23)
[2021-01-17 03:39] LABS: ALT/SGPT 21 U/L (12-78); AST/SGOT 14 U/L (15-37); Albumin 3.7 g/dL (3.4-5.0); Alkaline Phosphatase 142 U/L (45-117); BUN Blood Urea Nitrogen 14 mg/dL (7-18); Bilirubin Direct < 0.1 mg/dL (0-0.2); Bilirubin Total 0.2 mg/dL (0.2-1.0); CKMB Creatine Kinase MB 2.4 ng/mL (0.3-3.6); Creatine Phosphokinase 95 U/L (26-192); Lipase 287 U/L (73-393); Magnesium 2.6 mg/dL (1.8-2.4); Potassium 3.9 mmol/L (3.5-5.1); Protein, Total 8.3 g/dL (6.4-8.2); Sodium Level 135 mmol/L (136-145); Troponin (Emerg Dept Use Only) < 0.02 ng/mL (0.0-0.045)
[2021-01-17 03:40] LABS: Urine Blood 1+ (NEG); Urine Glucose 2+ (NEG); Urine Protein 1+ (NEG)
[2021-01-17 03:42] LABS: Bicarbonate 12 mmol/L (21-32); Glucose Level 662 mg/dL (74-106)
[2021-01-17 04:06] LABS: Urine Bacteria >50 /HPF (<20); Urine Mucus 1+ /HPF (NONE SEEN)
--- NOTE | 2021-01-17 04:09 | ER ---
Nurse's Notes [facility] Name: Elaine Rowland Age: 50 yrs Sex: Female : 1970 Arrival Date: 01/17/2021 Time: 02:11 Bed 3 Private MD: Diagnosis: Diabetes mellitus due to underlying condition with ketoacidosis with coma;Altered mental status, unspecified;Epileptic seizures related to external causes Presentation: 01/17 02:16 Chief complaint: EMS states: called EMS for that was barely breathing, on em scene pt was unresponsive, EMS witnessed 2 seizure like activity that lasted 5-7 seconds, denies hx of seizures, BGL on scene HIGH, hx of diabetes. Coronavirus screen: Client denies travel out of the [place] in the last 14 days. Ebola Screen: Patient negative for fever greater than or equal to 101.5 degrees Fahrenheit, and additional compatible Ebola Virus Disease symptoms Patient denies exposure to infectious person. Patient denies travel to an Ebola-affected area in the 21 days before illness onset. No symptoms or risks identified at this time. Initial Sepsis Screen: Does the patient meet any 2 criteria? HR > 90 bpm. No. Patient's initial sepsis screen is negative. Does the patient have a suspected source of infection? No. Patient's initial sepsis screen is negative. Risk Assessment: Do you want to hurt yourself or someone else? Patient reports no desire to harm self or others. Onset of symptoms was January 17, 2021. 02:16 Method Of Arrival: EMS: [facility] em 02:16 Acuity: SHAINA 2 em BOWL TOPPER: 20:33 lmp unknown mg2 Historical: - Allergies: 02:19 HYDROCODONE; em 02:19 Ibuprofen; em - PMHx: 02:19 abd hernia; acid reflux; Diabetes - NIDDM; Hyperlipidemia; Anxiety; em - PSHx: 02:19 Carpal Tunnel Repair; em - Immunization history:: Adult Immunizations unknown. - Social history:: Smoking status: unknown. Screenin:20 Abuse screen: no apparent signs noted. Nutritional screening: No deficits noted. em Tuberculosis screening: No symptoms or risk factors identified. Fall Risk None identified. Assessment: 02:19 General: Appears Behavior is unresponsive. Pain: Unable to use pain scale. Patient is em unresponsive. Neuro: Level of Consciousness is unresponsive, Seizure activity reported prior to arrival. Cardiovascular: Rhythm is sinus rhythm. Respiratory: Airway is patent Respiratory effort is even, Respiratory pattern is snoring. Derm: Skin is fragile, is thin, Skin is pink, warm \T\ dry. Wound noted mouth Wound is bleeding noted in mouth. 02:55 Reassessment: pt had a seizure in CT for about 15 seconds, had an apneic episode and em was cyanotic, placed on a nonrebreather, Dr. [place] in [place], ordered to hold Ativan while pt was apneic, currently unresponsive. 03:00 Reassessment: moved pt to room 3 for closer monitoring. em 03:33 Reassessment: Reassessment: Patient appears in no apparent distress at this time. No em changes from previously documented assessment. 04:58 Reassessment: Kevin, JUNIOR ACCOUNTANT BOOKKEEPER and at bedside discussing POC. em 20:31 Reassessment: [phone] Bryant contact number. [email or web address] Vital Signs: 02:16 BP 113 / 64; Pulse 96; Resp 18; Temp 97.8(A); Pulse Ox 95% on 4 lpm NC; em 03:34 BP 134 / 75; Pulse 94; Resp 18; Pulse Ox 94% on Non-rebreather mask; em 04:20 Weight 60 kg; mg2 04:36 BP 134 / 75; Pulse 85; Resp 18; Temp 96.7(C); Pulse Ox 98% on 3 lpm NC; em 20:18 BP 116 / 62; Pulse 70; Resp 18; Temp 99.1; Pulse Ox 96% on R/A; mg2 04:20 est mg2 ED Course: 02:11 Patient arrived in ED. cl3 02:16 Maintain EMS IV. Dressing intact. Good blood return noted. Site clean \T\ dry. Gauge \T\ em site: 20 LAC. 02:17 Tony Gore MD is Attending Physician. tw4 02:19 Triage completed. em 02:19 Mahamed Pruitt, RN is Primary Nurse. em 02:19 Arm band placed on. em 02:19 Patient has correct armband on for positive identification. Call light in reach. Side em rails up X2. Adult w/ patient. Seizure precautions initiated. vehicle monitor technician on. Pulse ox on. NIBP on. 02:40 Lamas cath inserted, using sterile technique, 16 Fr., by id, balloon inflated, urine em specimen collected. 02:58 CT Head Brain wo Cont In Process Unspecified. EDMS 04:08 Sam Parnell DO is Hospitalizing Provider. tw4 07:23 Primary Nurse role handed off by Mahamed Pruitt RN eb 20:31 No provider procedures requiring assistance completed. Patient admitted, IV remains in mg2 place. Administered Medications: 03:14 Drug: Keppra 1000 mg Route: IV; Rate: calculated rate; Site: left antecubital; em 06:19 Follow up: Response: No adverse reaction; IV Status: Completed infusion mg2 04:19 Drug: NS 0.9% 1000 ml Route: IV; Rate: 1 bolus; Site: left antecubital; mg2 06:19 Follow up: IV Status: Completed infusion; IV Intake: 1000ml mg2 04:19 Drug: Rocephin - (cefTRIAXone) 1 grams Route: IVPB; Infused Over: 30 mins; Site: left mg2 antecubital; 06:19 Follow up: Response: No adverse reaction; IV Status: Completed infusion mg2 04:20 Drug: Insulin Drip - (Insulin Regular Human 100 units, NS 0.9% 100 ml) {Co-Signature: mg2 em (Mahamed Pruitt RN).} Route: IV; Rate: calculated rate; Site: left antecubital; 06:19 Drug: NS 0.9% 1000 ml Route: IV; Rate: 1000 ml; Site: left antecubital; mg2 06:20 Follow up: Response: No adverse reaction; IV Status: Completed infusion; IV Intake: mg2 1000ml Intake: 06:19 IV: 1000ml; Total: 1000ml. mg2 06:20 IV: 1000ml; Total: 2000ml. mg2 Outcome: 04:08 Decision to Hospitalize by Provider. tw4 20:32 Admitted to Tele accompanied by tech, via stretcher, room 422, with chart, Report mg2 called to NADIA Tracey 20:32 Condition: stable 20:32 Instructed on the need for admit, Demonstrated understanding of instructions. 20:36 Patient left the ED. mg2 Signatures: Dispatcher [employer] Mahamed Harris, Tony Srivastava RN, MD MD tw4 Diana Del Valle Michele, RN RN mg2 Bill Burciaga RN RN [email or web address] Esha Givens cl3 Mahamed Pruitt RN em Corrections: (The following items were deleted from the chart) 03:34 02:55 Reassessment: pt had a seizure in CT for about 15 seconds, had an apneic episode em and was cyanotic, Dr. Groe in [place], ordered to hold Ativan while pt was apneic, currently unresponsive em
--- NOTE | 2021-01-17 04:09 | EDPHYS ---
Physician Documentation [facility] Name: Elaine Rowland Age: 50 yrs Sex: Female : 1970 Arrival Date: 01/17/2021 Time: 02:11 Bed 3 Private MD: ED Physician Tony Gore HPI: 01/17 03:03 This 50 yrs old Female presents to ER via EMS with complaints of ALTERED tw4 MENTAL STATUS. 03:03 The patient presents with decreased mental status, decreased responsiveness. Onset: The tw4 symptoms/episode began/occurred at an unknown time. Possible causes: low blood sugar, seizure. Associated signs and symptoms: The patient has no apparent associated signs or symptoms. Current symptoms: In the emergency department the patient's symptoms are unchanged from the initial presentation. Patient's baseline: Neuro: alert and fully oriented, Motor: no deficits. The patient has not experienced similar symptoms in the past. OPTICAL MANAGER: 20:33 lmp unknown mg2 Historical: - Allergies: 02:19 HYDROCODONE; em 02:19 Ibuprofen; em - PMHx: 02:19 abd hernia; acid reflux; Diabetes - NIDDM; Hyperlipidemia; Anxiety; em - PSHx: 02:19 Carpal Tunnel Repair; em - Immunization history:: Adult Immunizations unknown. - Social history:: Smoking status: unknown. ROS: 03:03 Unable to obtain ROS due to altered mental status. tw4 Exam: 03:03 Respiratory: Lungs have equal breath sounds bilaterally, clear to auscultation and tw4 percussion. No rales, rhonchi or wheezes noted. No increased work of breathing, no retractions or nasal flaring. Abdomen/GI: Soft, non-tender, with normal bowel sounds. No distension or tympany. No guarding or rebound. No evidence of tenderness throughout. Back: No spinal tenderness. No costovertebral tenderness. Full range of motion. Skin: Warm, dry with normal turgor. Normal color with no rashes, no lesions, and no evidence of cellulitis. MS/ Extremity: Pulses equal, no cyanosis. Neurovascular intact. Full, normal range of motion. 03:03 Constitutional: The patient appears comatose. 03:03 Eyes: Pupils: dilated, bilaterally, Conjunctiva: normal. 03:03 Cardiovascular: Rate: tachycardic, Rhythm: regular, Pulses: no pulse deficits are appreciated. Vital Signs: 02:16 BP 113 / 64; Pulse 96; Resp 18; Temp 97.8(A); Pulse Ox 95% on 4 lpm NC; em 03:34 BP 134 / 75; Pulse 94; Resp 18; Pulse Ox 94% on Non-rebreather mask; em 04:20 Weight 60 kg; mg2 04:36 BP 134 / 75; Pulse 85; Resp 18; Temp 96.7(C); Pulse Ox 98% on 3 lpm NC; em 20:18 BP 116 / 62; Pulse 70; Resp 18; Temp 99.1; Pulse Ox 96% on R/A; mg2 04:20 est mg2 MDM: 02:18 Patient medically screened. 01/17 02:25 Order name: Basic Metabolic Panel 01/17 02:25 Order name: CBC with Diff 01/17 02:25 Order name: Ckmb 01/17 02:25 Order name: CPK; Complete Time: 03:47 01/17 02:25 Order name: Hepatic Function; Complete Time: 03:47 01/17 02:25 Order name: Lipase; Complete Time: 05:17 01/17 02:25 Order name: Magnesium; Complete Time: 03:47 01/17 02:25 Order name: Protime (+inr); Complete Time: 03:35 01/17 02:25 Order name: Ptt, Activated; Complete Time: 03:35 01/17 02:25 Order name: Troponin (emerg Dept Use Only); Complete Time: 05:17 01/17 02:25 Order name: Basic Metabolic Panel; Complete Time: 03:47 ED01/17 02:26 Order name: CBC with Automated Diff; Complete Time: 03:10 EDMS 01/17 02:26 Order name: CKMB Creatine Kinase MB; Complete Time: 05:17 EDMS 01/17 02:39 Order name: Ketone, Serum 01/17 02:39 Order name: Urine Drug Screen 01/17 02:39 Order name: Acetone Level; Complete Time: 03:10 EDMS 01/17 02:39 Order name: Urine Drug Screen; Complete Time: 03:29 EDMS 01/17 03:19 Order name: Urine Culture [facility] 01/17 03:19 Order name: Urine Microscopic Only; Complete Time: 05:17 [facility] 01/17 03:19 Order name: Urine Dipstick--Ancillary (enter results); Complete Time: 03:42 [facility] 01/17 04:03 Order name: ABG; Complete Time: 05:17 [facility] 01/17 05:13 Order name: SARS-COV-2 RT PCR; Complete Time: 05:17 [facility] 01/17 05:16 Order name: Blood Culture Adult (2) la1 01/17 05:33 Order name: Glucose, Ancillary Testing [facility] 01/17 06:29 Order name: Glucose, Ancillary Testing [facility] 01/17 07:51 Order name: Glucose, Ancillary Testing [facility] 01/17 08:56 Order name: Glucose, Ancillary Testing [facility] 01/17 09:21 Order name: Hemoglobin A1c [facility] 01/17 02:25 Order name: CT Head Brain wo Cont [facility] 01/17 02:25 Order name: EKG; Complete Time: 02:26 01/17 02:25 Order name: Cardiac monitoring; Complete Time: 02:45 01/17 02:25 Order name: EKG - Nurse/Tech; Complete Time: 03:00 01/17 02:25 Order name: IV Saline Lock; Complete Time: 02:45 01/17 02:25 Order name: Labs collected and sent; Complete Time: 02:45 01/17 02:25 Order name: NPO; Complete Time: 02:45 01/17 02:25 Order name: O2 Per Protocol; Complete Time: 02:45 01/17 02:25 Order name: O2 Sat Monitoring; Complete Time: 02:45 01/17 02:25 Order name: Urine Dipstick-Ancillary (obtain specimen); Complete Time: 03:00 01/17 09:21 Order name: Basic Metabolic Panel [facility] 01/17 09:21 Order name: Lipid Profile [facility] 01/17 09:21 Order name: T4 Free [facility] 01/17 09:21 Order name: Thyroid Stimulating Hormone [facility] 01/17 10:03 Order name: Glucose, Ancillary Testing [facility] 01/17 11:19 Order name: Glucose, Ancillary Testing [facility] 01/17 12:14 Order name: Glucose, Ancillary Testing [facility] 01/17 12:35 Order name: Basic Metabolic Panel EDMS 01/17 13:21 Order name: Glucose, Ancillary Testing EDMS 01/17 14:49 Order name: Glucose, Ancillary Testing EDMS 01/17 15:41 Order name: Glucose, Ancillary Testing EDMS 01/17 17:06 Order name: Glucose, Ancillary Testing EDMS 01/17 17:15 Order name: Basic Metabolic Panel EDMS 01/17 20:01 Order name: Glucose, Ancillary Testing EDMS 01/17 20:12 Order name: Basic Metabolic Panel EDMS Administered Medications: 03:14 Drug: Keppra 1000 mg Route: IV; Rate: calculated rate; Site: left antecubital; em 06:19 Follow up: Response: No adverse reaction; IV Status: Completed infusion mg2 04:19 Drug: NS 0.9% 1000 ml Route: IV; Rate: 1 bolus; Site: left antecubital; mg2 06:19 Follow up: IV Status: Completed infusion; IV Intake: 1000ml mg2 04:19 Drug: Rocephin - (cefTRIAXone) 1 grams Route: IVPB; Infused Over: 30 mins; Site: left mg2 antecubital; 06:19 Follow up: Response: No adverse reaction; IV Status: Completed infusion mg2 04:20 Drug: Insulin Drip - (Insulin Regular Human 100 units, NS 0.9% 100 ml) {Co-Signature: mg2 em (Mahamed Pruitt RN).} Route: IV; Rate: calculated rate; Site: left antecubital; 06:19 Drug: NS 0.9% 1000 ml Route: IV; Rate: 1000 ml; Site: left antecubital; mg2 06:20 Follow up: Response: No adverse reaction; IV Status: Completed infusion; IV Intake: mg2 1000ml Disposition: 01/17/21 04:08 Hospitalization ordered by Sam Parnell for Inpatient Admission. Preliminary diagnosis are Diabetes mellitus due to underlying condition with ketoacidosis with coma, Altered mental status, unspecified, Epileptic seizures related to external causes. - Bed requested for Telemetry/MedSurg (Inpatient). - Status is Inpatient Admission. mg2 - Condition is Stable. - Problem is new. - Symptoms have improved. Signatures: Dispatcher [employer] Mahamed Harris RN RN em Kevin Cox, MANUFACTURING QUALITY MANAGER-C MANUFACTURING QUALITY MANAGER-Cla1 Abby Moore RN RN cg Wadley, Terrence, MD MD tw4 Oskar Young RN RN [facility] [place], [place] Mahamed Pruitt RN em Corrections: (The following items were deleted from the chart) 04:09 04:08 Hospitalization Ordered by Sam Parnell DO for Inpatient Admission. Preliminary tw4 diagnosis is Diabetes mellitus due to underlying condition with ketoacidosis with coma. Bed requested for Telemetry/MedSurg (Inpatient). Status is Inpatient Admission. Condition is Stable. Problem is new. Symptoms have improved. tw4 04:28 03:00 CORONAVIRUS+MR.LAB.BRZ ordered. EDMS EDMS 05:01 02:33 GLUCATNOID ordered. EDIL EDMS 05:40 04:09 01/17/2021 04:08 Hospitalization Ordered by Sam Parnell DO for Inpatient cg Admission. Preliminary diagnosis is Diabetes mellitus due to underlying condition with ketoacidosis with coma; Altered mental status, unspecified; Epileptic seizures related to external causes. Bed requested for Telemetry/MedSurg (Inpatient). Status is Inpatient Admission. Condition is Stable. Problem is new. Symptoms have improved. tw4 20:00 05:40 01/17/2021 04:08 Hospitalization Ordered by Sam Parnell DO for Inpatient cg Admission. Preliminary diagnosis is Diabetes mellitus due to underlying condition with ketoacidosis with coma; Altered mental status, unspecified; Epileptic seizures related to external causes. Bed requested for [facility] ER HOLD. Status is Inpatient Admission. Condition is Stable. Problem is new. Symptoms have improved. 20:36 20:00 01/17/2021 04:08 Hospitalization Ordered by Sam Parnell DO for Inpatient mg2 Admission. Preliminary diagnosis is Diabetes mellitus due to underlying condition with ketoacidosis with coma; Altered mental status, unspecified; Epileptic seizures related to external causes. Bed requested for Telemetry/MedSurg (Inpatient). Status is Inpatient Admission. Condition is Stable. Problem is new. Symptoms have improved.
[2021-01-17 04:15] LABS: Arterial Blood Carboxyhemoglob 1.1 % (0-1.5); Blood Gas Oxyhemoglobin 97.2 % (94-97); Blood O2 Saturation 99.2 % (92-98.5)
[2021-01-17] MEDS ORDERED: NA CHLORIDE 0.9% 2,000 ML ONE (04:23)
[2021-01-17] MEDS ORDERED: CEFTRIAXONE/SWI 1gm 1 GM/10 ML SYR ONE ×2 (04:23→09:32)
[2021-01-17] MEDS ORDERED: INSULIN -REGULAR HUMAN 50 UNIT/0.5 ML ML ONE ×2 (04:25→19:17)
--- NOTE | 2021-01-17 05:28 | P.HP ---
Certification for Inpatient Patient admitted to: Inpatient With expected LOS: >2 Midnights Patient will require the following post-hospital care: None Practitioner: I am a practitioner with admitting privileges, knowledge of patient current condition, hospital course, and medical plan of care. Services: Services provided to patient in accordance with Admission requirements found in Title 42 Section 412.3 of the Code of Federal Regulations Patient History Date of Service: 01/17/21 Primary Care Provider: none Reason for admission: DKA, UTI, seizure History of Present Illness: 50-year-old female history diabetes mellitus type 2, hypertension presents the emergency department for seizure. reports patient was at home had seizure became unresponsive EMS was called blood sugar read high. Upon arrival to the emergency department patient postictal. Labs reveal patient is in DKA anion gap is 26 ABG demonstrates pH 7.2 with some respiratory acidosis component. Lab significant for white blood cell count 13.3 sodium 135, chloride 97 CO2 12 creatinine 1.67 GFR 32 glucose 662 potassium 3.9 urine microscopic significant for greater than 50 bacteria in urine dip showed nitrite positive. Patient mental status improving throughout ED course, CT head negative for acute findings. Patient given Keppra loading dose in the emergency department. ED provider wishes to admit patient for further evaluation and management. When I saw the patient in the ER she is waking up, she is responsive to verbal stimulus, eyes open responding yes to most questions oriented x1 at best. Patient does not appear septic at this time vital signs stable. Will admit to the ICU for close monitoring and further workup. Allergies ibuprofen Allergy (Unverified 03/16/17 17:46) Unknown - Past Medical/Surgical History -: Diabetes mellitus type 2-noncompliant -: Hypertension-noncompliant Past Surgical History: Unable to obtain Psychosocial/ Personal History: Patient lives with her , is working on filing for disability. Not currently working. - Family History Family History: Reviewed- Non-Contributory - Social History Smoking Status: Never smoker Alcohol use: No CD- Drugs: No Caffeine use: Yes Place of Residence: Home Review of Systems is unable to be obtained Physical Examination - Physical Exam General: Alert, Oriented x1, Confused HEENT: Atraumatic, Normocephalic, Other (Mucous membranes dry, dry blood around mouth after seizures) Neck: Supple, 2+ carotid pulse no bruit Respiratory: Clear to auscultation bilaterally Cardiovascular: No edema, Normal S1 S2 Capillary refill: <2 Seconds Gastrointestinal: Normal bowel sounds, Soft and benign, No tenderness, No masses, No rebound Musculoskeletal: No contractures, No erythema, No tenderness Integumentary: No significant lesion, No tenderness/swelling, No erythema Neurological: Other (Difficult to examine neurologic. This time, patient appears to be postictal. Patient moving all extremities eyes are open. Pupils round reactive to light and accommodating. Patient responding to most questions with yes. at bedside.), Abnormal speech (Speech slow, slurred) - Studies Laboratory Data (last 24 hrs) 01/17/21 02:30: PT 9.8, INR 0.85, APTT 23.8 L 01/17/21 02:30: WBC 13.30 H, Hgb 14.1, Hct 43.7, Plt Count 236 01/17/21 02:30: Sodium 135 L, Potassium 3.9, BUN 14, Creatinine 1.67 H, Glucose 662 H*, Magnesium 2.6 H, Total Bilirubin 0.2, AST 14 L, ALT 21, Alkaline Phosphatase 142 H, Lipase 287 Assessment and Plan - Plan Assessment Diabetes mellitus type 2 with medical noncompliance and diabetic ketoacidosis New onset seizure UTI Hypertension Plan Diabetes mellitus type 2 with medical noncompliance and diabetic ketoacidosis: states patient not feeling well the past couple of days, reports patient has not been on her diabetes or blood pressure medication for the past 5 months. Blood sugar over 600 anion gap 26, continue with insulin drip, hourly blood glucose checks, q 4 BNP this until anion gap less than 12 and blood sugar less than 200, tolerating p.o.. Will need to initiate patient on antidiabetic agents, insulin. A1c with morning labs, lipid panel, thyroid panel with morning lab. DVT prophylaxis Lovenox 40 mg subcutaneous once daily New onset seizure: Loaded with Keppra in the ER, neurology consult in place. Continue with IV Keppra at this time until patient tolerating p.o. then can likely transition. Appreciate further input from neurology. CT head negative for any acute findings. Mental status improving. UTI: Continue with IV Rocephin, patient does not appear septic at this time. Blood and urine cultures obtained. Hypertension: Blood pressure normal at this time, will continue to evaluate throughout hospitalization. Discharge Plan: Home Plan to discharge in: Greater than 2 days - Advance Directives Does patient have a Living Will: No Does patient have a Durable POA for Healthcare: No - Code Status/Comfort Care Code Status Assessed: Yes (Full code) Critical Care: No Time Spent Managing Pts Care (In Minutes): 55
[2021-01-17] MEDS ORDERED: ONDANSETRON 4 MG/2 ML VIAL IV PRN (05:43)
[2021-01-17] MEDS ORDERED: LORazepam 2 MG/ML VIAL IV PRN (05:43)
[2021-01-17] MEDS ORDERED: INSULIN -REGULAR HUMAN 100 UNIT in NA CHLORIDE 0.9% 100 ML IV SCH (05:43)
[2021-01-17] MEDS ORDERED: NACHLORIDE 0.45% 1,000 ML with POTASSIUM CL 20 MEQ IV SCH ×2 (06:00)
[2021-01-17 06:30] VITALS: BMI 23.4
[2021-01-17] MEDS: CEFTRIAXONE/SWI 1gm 1 GM/10 ML SYR IV SCH (09:00)
[2021-01-17] MEDS: levETIRAcetam 500 MG in NA CHLORIDE 0.9% 100 ML IV SCH ×2 (09:00→22:10)
[2021-01-17] MEDS ORDERED: KCL 20 MEQ/100 mL IVPB 20 MEQ/100 ML BAG IV ONE ×2 (09:00→09:28)
[2021-01-17] MEDS: ENOXAPARIN 40 MG/0.4 ML SQ SCH (09:00)
[2021-01-17 09:10] LABS: Thyroid Stimulating Hormone 0.944 uIU/mL (0.360-3.740)
[2021-01-17] MEDS ORDERED: D5.45NS W/KCL 20MEQ 1,000 ML IV ONE (09:28)
[2021-01-17] MEDS: D5.45NS W/KCL 20MEQ 1,000 ML IV SCH ×2 (09:30→12:40)
[2021-01-17] MEDS ORDERED: ENOXAPARIN 40 MG/0.4 ML SQ ONE (09:33)
--- NOTE | 2021-01-17 09:56 | RAD REPORT ---
EXAM DESCRIPTION: CT of the head without contrast CLINICAL HISTORY: SEIZURE COMPARISON: None available TECHNIQUE: Axial CT of the head obtained from the skull apex to the skull base without contrast. FINDINGS: No acute intracranial hemorrhage identified. No mass, mass effect, shift of the midline, a bnormal extra-axial fluid collection or CT evidence of acute ischemic change identified. The ventricu lar system is unremarkable. No acute abnormalities of the supratentorial white matter, basal gangli a, cerebellum, or brainstem. The visualized paranasal sinuses and the mastoid air cells are relatively well aerated. No skull fr acture identified. Visualized orbits and globes are unremarkable. IMPRESSION: 1. No acute intracranial abnormality identified. This exam was performed according to our departmental dose-optimization program, which includes autom ated exposure control, adjustment of the mA and/or kV according to patient size and/or use of iterati ve reconstruction technique. Electronically signed by: Jah Montez 01/17/2021 3:20 AM VMWARE ENGINEER Due to temporary technical issues with the PACS/Fluency reporting system, reports are being signed by the in house radiologists without review as a courtesy to insure prompt reporting. The interpreting radiologist is fully responsible for the content of the report.
[2021-01-17] MEDS: NACHLORIDE 0.45% 1,000 ML with POTASSIUM CL 20 MEQ IV SCH ×6 (10:00→17:36)
[2021-01-17 12:35] LABS: BUN Blood Urea Nitrogen 12 mg/dL (7-18); Bicarbonate 23 mmol/L (21-32); Glucose Level 174 mg/dL (74-106); Potassium 4.3 mmol/L (3.5-5.1); Sodium Level 139 mmol/L (136-145)
[2021-01-17] MEDS ORDERED: INSULIN GLARGINE 100 UNITS/ML SQ ONE ×2 (13:00→13:34)
[2021-01-17] MEDS ORDERED: GLUCAGON 1 MG/VIAL IM PRN ×2 (13:32→16:05)
[2021-01-17] MEDS ORDERED: D50W 25 GM/50 ML VIAL IV PRN ×2 (13:54→16:12)
[2021-01-17] MEDS ORDERED: ACETAMINOPHEN 325 MG TABLET ONE (15:51)
[2021-01-17] MEDS ORDERED: NACHLORIDE 0.45% 500 ML IV ONE (15:51)
[2021-01-17] MEDS: NACHLORIDE 0.45% 1,000 ML IV SCH (16:20)
[2021-01-17] MEDS: ACETAMINOPHEN 325 MG TABLET PO PRN (16:30)
[2021-01-17] MEDS ORDERED: INFLUENZA VACCINE (for 3y+) 0.5 ML DOSE IMVAC ONE (19:00)
[2021-01-17] MEDS: INSULIN -REGULAR HUMAN 50 UNIT/0.5 ML ML SQ SCH ×2 (19:04→22:16)
[2021-01-17 20:11] LABS: BUN Blood Urea Nitrogen 8 mg/dL (7-18); Bicarbonate 21 mmol/L (21-32); Glucose Level 190 mg/dL (74-106); Potassium 3.7 mmol/L (3.5-5.1); Sodium Level 139 mmol/L (136-145)
[2021-01-17] MEDS ORDERED: NACHLORIDE 0.45% 1,000 ML IV ONE (20:39)
[2021-01-17] MEDS ORDERED: ATORVASTATIN 40 MG TAB PO SCH (21:00)
[2021-01-17 21:10] VITALS: O2SAT 96
[2021-01-18] MEDS: NACHLORIDE 0.45% 1,000 ML IV SCH ×2 (06:03→14:25)
[2021-01-18 07:06] LABS: Absolute Lymphocytes (CBC) 0.9 K/uL (0.7-4.9); Basophils % 0.2 % (0-1.3); Hematocrit 32.2 % (36.0-45.0); Lymphocytes % 20.8 % (15.3-44.8); MPV 8.4 fL (7.6-11.3); RBC Red Blood Cell Count 3.65 M/uL (3.86-4.86)
[2021-01-18 07:22] LABS: Magnesium 1.8 mg/dL (1.8-2.4)
[2021-01-18 07:43] LABS: Phosphorus 2.5 mg/dL (2.5-4.9); Potassium 3.5 mmol/L (3.5-5.1)
[2021-01-18] MEDS ORDERED: POTASSIUM CL SA 10 MEQ TAB PO ONE (09:00)
[2021-01-18] MEDS ORDERED: CEFTRIAXONE 1 GM/NS 50 ML 50 ML IV SCH (09:00)
[2021-01-18] MEDS: levETIRAcetam 500 MG in NA CHLORIDE 0.9% 100 ML IV SCH (09:00)
[2021-01-18] MEDS: ENOXAPARIN 40 MG/0.4 ML SQ SCH (09:43)
[2021-01-18] MEDS: ACETAMINOPHEN 325 MG TABLET PO PRN (09:43)
[2021-01-18] MEDS: CEFTRIAXONE/SWI 1gm 1 GM/10 ML SYR IV SCH (09:43)
[2021-01-18] MEDS: INSULIN -REGULAR HUMAN 50 UNIT/0.5 ML ML SQ SCH ×3 (09:44→16:26)
--- NOTE | 2021-01-18 10:13 | P.DS ---
Admission Date: 01/17/21 Discharge Date: 01/18/21 Primary Care Provider: none Disposition: ROUTINE DISCHARGE Discharge Condition: GOOD Reason for Admission: DKA, UTI, seizure Consultations: Neurology-Dr. Rico Procedures: COVID: negative CT Head: FINDINGS: No acute intracranial hemorrhage identified. No mass, mass effect, shift of the midline, abnormal extra-axial fluid collection or CT evidence of acute ischemic change identified. The ventricular system is unremarkable. No acute abnormalities of the supratentorial white matter, basal ganglia, cerebellum, or brainstem. The visualized paranasal sinuses and the mastoid air cells are relatively well aerated. No skull fracture identified. Visualized orbits and globes are unremarkable. IMPRESSION: 1. No acute intracranial abnormality identified. Medical problem list: Diabetes mellitus type 2 with medical noncompliance and diabetic ketoacidosis New onset seizure UTI Brief History of Present Illness: 50-year-old female with history of diabetes, hypertension presented with new onset seizure. reports patient had seizure and became unresponsive. EMS arrived noted blood sugar extremely high. Patient remained postictal. Patient was seen in the ER. DKA protocol was initiated. Patient given Keppra loading dose. CT scan unremarkable. Patient admitted for further evaluation and treatment. Hospital Course: Patient presented with new onset seizure complicated with diabetic ketoacidosis. Patient was admitted for treatment. Patient received IV Keppra. Patient also started on DKA protocol. DKA resolved. Patient has transition to oral medication for seizures. Patient also transition to insulin. Hemoglobin A1c greater than 13. Case discussed with Neurology. Patient without any seizures at this time. At discharge for her seizures the patient will continue with Keppra 500 mg 1 pill twice daily. Patient will also continue with folic acid 1 mg daily. Recommend follow up with neurology within 1 week to follow up this hospitalization and to further address. Patient will need outpatient EEG and MRI within the next week to further address her condition. Recommend seizure precautions including no driving, swimming, operating heavy equipment. Further instructions will come from Neurology as an outpatient. As for her diabetes. Hemoglobin A1c greater than 13. Patient previously taking metformin. At discharge the patient will continue with Lantus 10 units subcu twice daily. Recommend to monitor blood sugar at least twice daily. Recommend to maintain blood sugar less than 140 fasting and less than 200 after meals. If blood sugars remain above 200 she will need to increase Lantus by 1-2 units for better diabetic control. Recommend to establish care with a local PCP in the area to further address and monitor her condition. Once she is able to establish care other considerations for additional medication can be done by her PCP. Patient with UTI. At discharge patient will continue with Augmentin 500 mg 1 pill twice daily for 7 days. UTI prevention will be provided. Vital Signs/Physical Exam: Temp Pulse Resp BP Pulse Ox 98.2 F 74 18 119/61 96 01/18/21 08:00 01/18/21 08:00 01/18/21 08:00 01/18/21 08:00 01/18/21 08:00 General: Alert, In no apparent distress, Oriented x3, Cooperative HEENT: Atraumatic Neck: Supple Respiratory: Clear to auscultation bilaterally, Normal air movement Cardiovascular: Normal pulses, Regular rate/rhythm Gastrointestinal: Normal bowel sounds, Soft and benign, Non-distended, No tenderness, No masses, No rebound, No guarding Musculoskeletal: No erythema, No tenderness, No warmth Integumentary: No tenderness/swelling, No erythema, No warmth, No cyanosis Neurological: Normal speech, Normal strength at 5/5 x4 extr, Normal tone, Normal affect Laboratory Data at Discharge: WBC 4.60 K/uL (4.3-10.9) D 01/18/21 06:06 Hgb 11.5 g/dL (12.0-15.0) L D 01/18/21 06:06 Hct 32.2 % (36.0-45.0) L D 01/18/21 06:06 Plt Count 136 K/uL (152-406) L D 01/18/21 06:06 PT 9.8 SECONDS (9.5-12.5) 01/17/21 02:30 INR 0.85 01/17/21 02:30 APTT 23.8 SECONDS (24.3-36.9) L 01/17/21 02:30 Sodium 139 mmol/L (136-145) 01/17/21 19:45 Potassium Cancelled 01/18/21 Unknown BUN 8 mg/dL (7-18) 01/17/21 19:45 Creatinine 0.56 mg/dL (0.55-1.3) 01/17/21 19:45 Glucose 190 mg/dL (74-106) H 01/17/21 19:45 Phosphorus 2.5 mg/dL (2.5-4.9) 01/18/21 06:06 Magnesium 1.8 mg/dL (1.8-2.4) D 01/18/21 06:06 Total Bilirubin 0.2 mg/dL (0.2-1.0) 01/17/21 02:30 AST 14 U/L (15-37) L 01/17/21 02:30 ALT 21 U/L (12-78) 01/17/21 02:30 Alkaline Phosphatase 142 U/L (45-117) H 01/17/21 02:30 Triglycerides 200 mg/dL (<150) H 01/17/21 08:29 Cholesterol 222 mg/dL (<200) H 01/17/21 08:29 HDL Cholesterol 42 mg/dL (40-60) 01/17/21 08:29 Cholesterol/HDL Ratio 5.29 01/17/21 08:29 Lipase 287 U/L (73-393) 01/17/21 02:30 Home Medications: Amox/Clavulanate [Augmentin 500-125 mg Tab] 500 mg PO BID #14 tab 01/18/21 Folic Acid 1 mg PO DAILY #90 tablet 01/18/21 Insulin Glargine,Hum.rec.anlog [Lantus Solostar] 10 unit SQ BID #1 packet 01/18/21 levETIRAcetam [Keppra*] 500 mg PO BID #60 tab 01/18/21 New Medications: Amox/Clavulanate [Augmentin 500-125 mg Tab] 500 mg PO BID #14 tab Folic Acid 1 mg PO DAILY #90 tablet levETIRAcetam [Keppra*] 500 mg PO BID #60 tab Insulin Glargine,Hum.rec.anlog [Lantus Solostar] 10 unit SQ BID #1 packet Physician Discharge Instructions: Recommend follow up with PCP to establish care and follow up this hospitalization. Patient presented with new onset seizure complicated with diabetic ketoacidosis. Patient was admitted for treatment. Patient received IV Keppra. Patient also started on DKA protocol. DKA resolved. Patient has transition to oral medication for seizures. Patient also transition to insulin. Hemoglobin A1c greater than 13. Case discussed with Neurology. Patient without any seizures at this time. At discharge for her seizures the patient will continue with Keppra 500 mg 1 pill twice daily. Patient will also continue with folic acid 1 mg daily. Recommend follow up with neurology within 1 week to follow up this hospitalization and to further address. Patient will need outpatient EEG and MRI within the next week to further address her condition. Recommend seizure precautions including no driving, swimming, operating heavy equipment. Further instructions will come from Neurology as an outpatient. As for her diabetes. Hemoglobin A1c greater than 13. Patient previously taking metformin. At discharge the patient will continue with Lantus 10 units subcu twice daily. Recommend to monitor blood sugar at least twice daily. Recommend to maintain blood sugar less than 140 fasting and less than 200 after meals. If blood sugars remain above 200 she will need to increase Lantus by 1-2 units for better diabetic control. Recommend to establish care with a local PCP in the area to further address and monitor her condition. Once she is able to establish care other considerations for additional medication can be done by her PCP. Patient with UTI. At discharge patient will continue with Augmentin 500 mg 1 pill twice daily for 7 days. UTI prevention will be provided. Diet: ADA Activity: See discharge instructions Followup: Unknown,U [Primary Care Provider] - Time spent managing pt's care (in minutes): 55
[2021-01-18 18:29] VITALS: BP 121/64; TEMP 98.2
[2021-01-18] MEDS ORDERED: levETIRAcetam 500 MG TAB PO SCH (21:00)
== END 2021-01-18 16:44 | disposition home or self-care (01) | DRG 638 ==
LOC: ER 02:10 → ERHOLD 05:29 → 4TH 20:32
PROVIDERS: ADMIT Internal Medicine Nephrology; ATTEND Family Medicine
DX: E11.10 Type 2 diabetes mellitus with ketoacidosis without coma (principal); N39.0 Urinary tract infection, site not specified; N17.9 Acute kidney failure, unspecified; K21.9 Gastro-esophageal reflux disease without esophagitis; E86.0 Dehydration; I10 Essential (primary) hypertension; R56.9 Unspecified convulsions; Z91.19 Patient's noncompliance with other medical treatment and regimen; Z88.5 Allergy status to narcotic agent; Z79.4 Long term (current) use of insulin; Z79.899 Other long term (current) drug therapy; Z20.822 Contact with and (suspected) exposure to COVID-19
CPT/HCPCS: 36415; 51702; 70450; 80048; 80061; 80076; 80307; 81003; 81015; 82010; 82550; 82553; 82805; 82947; 83036; 83690; 83735; 84100; 84132; 84439; 84443; 84484; 85025; 85610; 85730; 87040; 87077; 87086; 87088; 87186; 96365; 96366; 96375; 99285; J0696; J1650; J1815; J1953; J3480; J7030; U0003

== ENCOUNTER 2021-02-17 20:08 | Emergency (ER) | payer OTHER, SELFPAY ==
--- NOTE | 2021-02-17 20:29 | ER ---
Nurse's Notes [facility] Name: Elaine Rowland Age: 50 yrs Sex: Female : 1970 Arrival Date: 02/17/2021 Time: 20:10 Bed 20 Private MD: Diagnosis: Diabetes mellitus due to underlying condition with hyperglycemia Presentation: 02/17 20:11 Chief complaint: EMS states: called out for someone having a seizure, on scene BGL read em HIGH, pt smells of ETOH, pt denies using drugs/alcohol, pt was uncooperative on scene. Coronavirus screen: Client denies travel out of the [place] in the last 14 days. Ebola Screen: Patient negative for fever greater than or equal to 101.5 degrees Fahrenheit, and additional compatible Ebola Virus Disease symptoms Patient denies exposure to infectious person. Patient denies travel to an Ebola-affected area in the 21 days before illness onset. No symptoms or risks identified at this time. Initial Sepsis Screen: Does the patient meet any 2 criteria? HR > 90 bpm. No. Patient's initial sepsis screen is negative. Does the patient have a suspected source of infection? No. Patient's initial sepsis screen is negative. Risk Assessment: Do you want to hurt yourself or someone else? Patient reports no desire to harm self or others. Onset of symptoms was February 17, 2021. 20:11 Method Of Arrival: EMS: [facility] em 20:11 Acuity: SHAINA 3 em Historical: - Allergies: 20:14 HYDROCODONE; em 20:14 Ibuprofen; em - PMHx: 20:14 abd hernia; acid reflux; Anxiety; Diabetes - NIDDM; Hyperlipidemia; em - PSHx: 20:14 Carpal Tunnel Repair; em - Immunization history:: Adult Immunizations unknown. - Social history:: Patient/guardian denies using alcohol, street drugs, The patient lives with family, Smoking status: unknown. - Family history:: not pertinent. Screenin:10 Abuse screen: Refuses to answer. Nutritional screening: Refuses to answer. Tuberculosis sf screening: Refuses to answer. Fall Risk Gait- Impaired (20 pts.). Mental Status- Oriented to own ability (0 pts). Total Rosa Fall Scale indicates Low Risk Score (25-44 pts). Fall prevention measures have been instituted. Side Rails Up X 2 Placed close to Nursing Station. Assessment: 20:10 General: Appears in no apparent distress. unkempt, Behavior is anxious, uncooperative, sf Smells of alcohol, Denies feeling ill. Pain: Denies pain. Neuro: Level of Consciousness is awake, alert, Oriented to person, place, time, situation. Cardiovascular: No deficits noted. Respiratory: No deficits noted. GI: No deficits noted. GI: No deficits noted. No signs and/or symptoms were reported involving the gastrointestinal system. : No signs and/or symptoms were reported regarding the genitourinary system. Derm: Wound noted left leg. Injury Description: Laceration sustained to left leg is 0.5 to 2.5 cm long. 20:11 Reassessment: pt on the phone stating she wants to go home, currently refusing any em treatment at this time, Dr. Mittal notified. 20:22 Reassessment: Patient out of room ambulatory to restroom, refusing assistance, refusing sf to give urine sample. 20:26 Reassessment: pt A\T\O x 3 has a ride coming to get her. em Vital Signs: 20:11 BP 151 / 81; Pulse 102; Resp 20; Temp 97.8; Pulse Ox 100% on R/A; em ED Course: 20:10 Patient arrived in ED. 2 20:10 Fercho Santiago MD is Attending Physician. [facility] 20:10 Bed in low position. Call light in reach. Side rails up X2. Patient refused arm band. sf Pulse ox on. NIBP on. 20:13 Issa Joe RN is Primary Nurse. sf 20:14 Triage completed. em 20:14 Arm band placed on. em 20:29 No provider procedures requiring assistance completed. Patient did not have IV access sf during this emergency room visit. Administered Medications: No medications were administered Outcome: 20:29 AMA Left before signing form. sf 20:29 Condition: stable 20:29 Instructed on no driving heavy equipment. 20:30 Patient left the ED. sf Signatures: Mahamed Pruitt RN RN Fercho Santiago MD MD [facility] Jose G Reyez 2 Issa Joe RN RN
--- NOTE | 2021-02-17 20:29 | EDPHYS ---
Physician Documentation [facility] Name: Elaine Rowland Age: 50 yrs Sex: Female : 1970 Arrival Date: 02/17/2021 Time: 20:10 Bed 20 Private MD: ED Physician Fercho Santiago HPI: 02/17 20:13 This 50 yrs old Female presents to ER via Unassigned with complaints of ma2 intoxication, High Blood Sugar. 20:13 Onset: The symptoms/episode began/occurred gradually, 1 day(s) ago. Possible causes: ma2 drug use, alcohol. Current symptoms: In the emergency department the patient's symptoms are unchanged from the initial presentation. The patient has experienced similar episodes in the past. has been drinking alcohol today and has high blood sugar, has iddm, not taking her insuline . Historical: - Allergies: 20:14 HYDROCODONE; em 20:14 Ibuprofen; em - PMHx: 20:14 abd hernia; acid reflux; Anxiety; Diabetes - NIDDM; Hyperlipidemia; em - PSHx: 20:14 Carpal Tunnel Repair; em - Immunization history:: Adult Immunizations unknown. - Social history:: Patient/guardian denies using alcohol, street drugs, The patient lives with family, Smoking status: unknown. - Family history:: not pertinent. ROS: 20:13 Constitutional: Negative for fever, chills, and weight loss. ma2 20:13 All other systems are negative. Exam: 20:13 Constitutional: This is a well developed, well nourished patient who is awake, alert, ma2 and in no acute distress. Chest/axilla: Normal chest wall appearance and motion. Nontender with no deformity. No lesions are appreciated. Cardiovascular: Regular rate and rhythm with a normal S1 and S2. No gallops, murmurs, or rubs. Normal PMI, no JVD. No pulse deficits. Respiratory: Lungs have equal breath sounds bilaterally, clear to auscultation and percussion. No rales, rhonchi or wheezes noted. No increased work of breathing, no retractions or nasal flaring. Abdomen/GI: Soft, non-tender, with normal bowel sounds. No distension or tympany. No guarding or rebound. No evidence of tenderness throughout. Back: No spinal tenderness. No costovertebral tenderness. Full range of motion. MS/ Extremity: moving all extremities, intoxicated with alcohol, awake combative Psych: Awake, intoxicated with alcohol, combative 20:29 Head/Face: Normocephalic, atraumatic. Eyes: patient is a x o x 4, refuses medical ma2 exam want to be discharged, denies si or hi, able to walk Vital Signs: 20:11 BP 151 / 81; Pulse 102; Resp 20; Temp 97.8; Pulse Ox 100% on R/A; em MDM: 20:10 Patient medically screened. ma2 20:13 Differential Diagnosis: electrolyte abnormality, alcohol intoxication, hypoglycemia, ma2 volume depletion. 20:25 ED course: patient is now awake alert oriented x 4, she refuse medical treatment, she ma2 is mildly intoxicated with alcohol yet able to make judgment, walking with steady gate, she states a friend is outside waiting for her. panda is walking with her outside. she refuse medical treatment will leave ama, she understands risks of leaving [facility] with no treatment understands risk of and deterioration of acute or chronic conditions . 02/17 20:12 Order name: IV Saline Lock [facility] 02/17 20:12 Order name: Labs collected and sent [facility] 02/17 20:12 Order name: Urine Dipstick-Ancillary (obtain specimen) [facility] Administered Medications: No medications were administered Disposition: 02/17/21 20:29 Patient has left against medical advice. Impression: Diabetes mellitus due to underlying condition with hyperglycemia. - Patients states they are going to Home. - Condition is Stable. - Discharge Instructions: Hyperglycemic Hyperosmolar State. Follow up: Private Physician; When: Tomorrow; Reason: Continuance of care. - Problem is new. - Symptoms are unchanged. Signatures: Dispatcher [employer] EDMahamed Andres RN RN Fercho Santiago MD MD ma2 Issa Joe RN RN sf Corrections: (The following items were deleted from the chart) 20:28 20:18 ED course: patient refuse iv, she is combative and intoxicated with alcohol ma2 disoriented. ma2 20:30 20:29 02/17/2021 20:29 Patients has left against medical advice. Impression: Diabetes sf mellitus due to underlying condition with hyperglycemia. Patient states they are going to Home. Condition is Stable. Follow up: Private Physician; When: Tomorrow; Reason: Continuance of care. Problem is new. Symptoms are unchanged. ma2
[2021-02-17 21:10] VITALS: BP 151/81; TEMP 97.8; O2SAT 100
== END 2021-02-17 20:30 | disposition left against medical advice (07) ==
LOC: ER 20:08
DX: E11.65 Type 2 diabetes mellitus with hyperglycemia (principal); Z88.6 Allergy status to analgesic agent; Z53.29 Procedure and treatment not carried out because of patient's decision for other reasons
CPT/HCPCS: 99283

== ENCOUNTER 2021-04-27 09:24 | Emergency (ER) | payer OTHER, SELFPAY ==
[2021-04-27 10:08] LABS: Protime INR 0.97
[2021-04-27 10:09] LABS: Basophils % 0.8 % (0-1.3); Hematocrit 34.3 % (36.0-45.0); Lymphocytes % 22.6 % (15.3-44.8); MPV 7.5 fL (7.6-11.3); RBC Red Blood Cell Count 3.82 M/uL (3.86-4.86)
[2021-04-27] MEDS ORDERED: MORPHINE 4 MG/ML SYR ONE (10:19)
[2021-04-27] MEDS ORDERED: ONDANSETRON 4 MG/2 ML VIAL ONE (10:20)
[2021-04-27] MEDS ORDERED: NA CHLORIDE 0.9% 1,000 ML ONE (10:20)
[2021-04-27 10:35] LABS: ALT/SGPT 19 U/L (12-78); AST/SGOT 17 U/L (15-37); Albumin 2.9 g/dL (3.4-5.0); Alkaline Phosphatase 107 U/L (45-117); BUN Blood Urea Nitrogen 6 mg/dL (7-18); Bicarbonate 30 mmol/L (21-32); Bilirubin Direct 0.1 mg/dL (0-0.2); Bilirubin Total 0.4 mg/dL (0.2-1.0); Glucose Level 155 mg/dL (74-106); Magnesium 1.9 mg/dL (1.8-2.4); NT PRO-BNP 420 pg/mL (<125); Protein, Total 6.6 g/dL (6.4-8.2); Sodium Level 141 mmol/L (136-145); Troponin (Emerg Dept Use Only) < 0.02 ng/mL (0.0-0.045)
[2021-04-27 10:39] LABS: Potassium 2.9 mmol/L (3.5-5.1)
--- NOTE | 2021-04-27 10:42 | RAD REPORT ---
EXAM DESCRIPTION: CT - Head Brain Wo Cont - 04/27/2021 10:17 am CLINICAL HISTORY: paresthesias, left leg numbness COMPARISON: CT head January 17 TECHNIQUE: Axial 5 mm thick images of the head were obtained without IV contrast. All CT scans are performed using dose optimization technique as appropriate and may include automated exposure control or mA/KV adjustment according to patient size. FINDINGS: No intracranial hemorrhage, mass, edema or shift of mid-line structures. No acute infarcti on changes seen. No abnormal extra-axial fluid collections. Ventricles are normal. Mastoid air cells and visualized portions of the paranasal sinuses are clear. No acute bony findings. IMPRESSION: Negative non-contrast CT head examination for acute or significant finding No significant change
[2021-04-27] MEDS ORDERED: FENTANYL CITR 100 MCG/2 ML ONE (11:41)
[2021-04-27] MEDS ORDERED: DIAZEPAM 10 MG/2 ML INJ SYRINGE ONE (11:42)
--- NOTE | 2021-04-27 13:33 | RAD REPORT ---
EXAM DESCRIPTION: CT - Spine Lumbar Wo Con - 04/27/2021 1:19 pm CLINICAL HISTORY: left radicular pain COMPARISON: None. TECHNIQUE: Thin section axial imaging of the lumbar spine was performed. Sagittal and coronal recon struction images were generated and reviewed. All CT scans are performed using dose optimization technique as appropriate and may include automated exposure control or mA/KV adjustment according to patient size. FINDINGS: Lumbar bodies are normal in height and alignment. T11-L4 bodies show no lytic, sclerotic o r expansile changes. Advanced for age degenerative change involves the endplates at the L5-S1 disc le samuel. Subcortical degenerative cystic changes are present and there is sclerotic change to the inferio r L5 and superior S1 bodies abutting the disc level. No paraspinal soft tissue mass is present. The T11-T12 through the L3-4 disc levels show no herniatio n or significant disc bulge. No canal or foramen stenosis. Disc heights are preserved. L4-5 shows bulging of disc material in the central canal. This appears to flatten the anterior margin of the thecal sac with central canal midline diameter is within normal range at 10 mm. No foraminal stenosis. Prominent posterior disc bulge and endplate spurring changes at L5-S1 abuts the S1 nerve roots. Canal is stenotic at 8 mm. Disc bulge and endplate spurring changes cause bilateral foraminal stenosis. IMPRESSION: Advanced for age degenerative disc disease at L5-S1 causing central spinal stenosis to 8 mm and moderate severity bilateral foraminal stenosis.
[2021-04-27] MEDS ORDERED: HYDROMORPHONE HCL 1 MG/ML INJ ONE (14:43)
[2021-04-27] MEDS ORDERED: KETOROLAC 30 MG/ML INJ ONE (14:43)
--- NOTE | 2021-04-27 15:40 | EDPHYS ---
Physician Documentation [facility] Name: Elaine Rowland Age: 50 yrs Sex: Female : 1970 Arrival Date: 04/27/2021 Time: 09:28 Bed 5 Private MD: ED Physician Se Ohara HPI: 04/27 09:36 This 50 yrs old Female presents to ER via EMS with complaints of left leg jmm pain. 09:36 The patient's problem is reported as paresthesias, in right upper extremity, in left jmm lower extremity. Onset: The symptoms/episode began/occurred gradually, 1 day(s) ago. Duration: This was a single incident. The symptoms are alleviated by nothing. The symptoms are aggravated by movement. Associated signs and symptoms: Pertinent positives: numbness, Pertinent negatives: abdominal pain, blurred vision, chest pain, confusion. This is a 50 year old female with a history of dm that presents to the ED with complaints of left leg numbness and pain beginning last night. Also complains of similar symptoms to the right arm. Patient states having a history of back injury at a young age. . 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 - Social history:: Smoking status: Patient/guardian denies using tobacco, Stopped _ months ago 3. ROS: 09:36 Constitutional: Negative for fever, chills, and weight loss, Cardiovascular: Negative jmm for chest pain, palpitations, and edema, Respiratory: Negative for shortness of breath, cough, wheezing, and pleuritic chest pain. 09:36 MS/extremity: Positive for pain, paresthesias. 09:36 All other systems are negative. Exam: 09:36 Constitutional: This is a well developed, well nourished patient who is awake, alert, jmm and in no acute distress. Head/Face: atraumatic. Eyes: EOMI, no conjunctival erythema appreciated ENT: Moist Mucus Membranes Neck: Trachea midline, Supple Chest/axilla: Normal chest wall appearance and motion. Cardiovascular: Regular rate and rhythm. No edema appreciated Respiratory: Normal respirations, no respiratory distress appreciated Abdomen/GI: Non distended, soft 09:36 Back: positive straight leg raise of the left leg. 09:36 Musculoskeletal/extremity: ROM: intact in all extremities. 09:36 Skin: Appearance: Color: normal in color. 09:36 Neuro: Orientation: is normal, Mentation: is normal, Memory: is normal. 09:36 Psych: Behavior/mood is pleasant, cooperative. Vital Signs: 09:35 BP 176 / 83; Pulse 74; Resp 17 S; Temp 97.8(TE); Pulse Ox 100% on R/A; Weight 63.5 kg jd3 (R); Height 5 ft. 2 in. (157.48 cm) (R); Pain 8/10; 11:09 BP 183 / 96; Pulse 80; Resp 16 S; Pulse Ox 100% on R/A; jd3 12:38 BP 120 / 63; Pulse 62; Resp 14 S; Pulse Ox 100% on R/A; jd3 13:41 BP 173 / 72; Pulse 62; Resp 15 S; Pulse Ox 100% on R/A; jd3 15:20 BP 146 / 72; Pulse 59; Resp 15 S; Pulse Ox 100% on R/A; jd3 17:18 BP 139 / 75; Pulse 60; Resp 16 S; Pulse Ox 99% on R/A; jd3 09:35 Body Mass Index 25.61 (63.50 kg, 157.48 cm) jd3 MDM: 09:33 Patient medically screened. [facility] 15:33 Data reviewed: vital signs, nurses notes. Counseling: I had a detailed discussion with [facility] the patient and/or guardian regarding: the historical points, exam findings, and any diagnostic results supporting the discharge/admit diagnosis, lab results, radiology results, the need for outpatient follow up, to return to the emergency department if symptoms worsen or persist or if there are any questions or concerns that arise at home. 15:37 Data reviewed: lab test result(s), radiologic studies, CT scan. ED course: Patient is [facility] able to ambulate in the ED with assistance. Extensor hallucis longus intact, patient has no bowel or bladder issues. I do not suspect cauda equina. Patient advised to follow up with pcp and otherwise given strict return precautions. Patient understood and agrees with the plan of care. . 04/27 09:34 Order name: Basic Metabolic Panel [facility] 04/27 09:34 Order name: CBC with Diff; Complete Time: 10:13 [facility] 04/27 09:34 Order name: LFT's; Complete Time: 10:40 [facility] 04/27 09:34 Order name: Magnesium; Complete Time: 10:40 [facility] 04/27 09:34 Order name: NT PRO-BNP; Complete Time: 10:40 [facility] 04/27 09:34 Order name: PT-INR; Complete Time: 10:13 [facility] 04/27 09:34 Order name: Troponin (emerg Dept Use Only); Complete Time: 10:40 [facility] 04/27 09:34 Order name: CT Head Brain wo Cont; Complete Time: 10:48 [facility] 04/27 09:34 Order name: Basic Metabolic Panel; Complete Time: 10:40 [facility] 04/27 12:35 Order name: CT Lumbar Spine Wo Con; Complete Time: 13:34 [facility] 04/27 09:34 Order name: EKG; Complete Time: 09:35 [facility] 04/27 09:34 Order name: Cardiac monitoring; Complete Time: 09:38 [facility] 04/27 09:34 Order name: EKG - Nurse/Tech; Complete Time: 10:12 [facility] 04/27 09:34 Order name: IV Saline Lock; Complete Time: 09:57 [facility] 04/27 09:34 Order name: Labs collected and sent; Complete Time: 09:57 [facility] 04/27 09:34 Order name: O2 Per Protocol; Complete Time: 09:57 [facility] 04/27 09:34 Order name: O2 Sat Monitoring; Complete Time: 09:57 [facility] 04/27 10:50 Order name: Misc. Order: ambulate patient; Complete Time: 14:26 jm Administered Medications: 10:11 Drug: Zofran (Ondansetron) 4 mg Route: IVP; Site: right antecubital; jd3 11:00 Follow up: Response: No adverse reaction jd3 10:11 Drug: NS 0.9% 1000 ml Route: IV; Rate: 1 bolus; Site: right antecubital; jd3 11:00 Follow up: Response: No adverse reaction; IV Status: Completed infusion; IV Intake: jd3 1000ml 10:12 Drug: morphine 4 mg Route: IVP; Site: right antecubital; jd3 11:00 Follow up: Response: No adverse reaction; RASS: Alert and Calm (0) jd3 11:33 Drug: Valium (diazepam) 5 mg Route: IVP; Site: right antecubital; jd3 12:30 Follow up: Response: No adverse reaction jd3 11:33 Drug: fentaNYL (PF) 25 mcg Route: IVP; Site: right antecubital; jd3 12:30 Follow up: Response: No adverse reaction; RASS: Alert and Calm (0) jd3 14:26 Drug: Dilaudid (HYDROmorphone) 1 mg Route: IVP; Site: right antecubital; hb 15:20 Follow up: Response: No adverse reaction; RASS: Alert and Calm (0) jd3 14:26 Drug: Ketorolac 30 mg Route: IVP; Site: right antecubital; hb 15:20 Follow up: Response: No adverse reaction jd3 17:19 Not Given (Other Intervention Used): morphine 4 mg IVP once; RASS on ADMIN: Combtv4, jd3 Very Agttd3, Agttd2, Rstlss1, AlertClm0, Drwsy-1, Lt Sdtn-2, Mod Sdtn-3, Dp Sdtn-4, UnArsble-5 Disposition: 04/28 07:29 Co-signature as Attending Physician, Se Ohara MD I agree with the assessment and mauricio plan of care. Disposition: 04/27/21 15:39 Discharged to Home. Impression: Sciatica, left side. - Condition is Stable. - Discharge Instructions: Sciatica. - Prescriptions for Ultracet 37.5- 325 mg Oral Tablet - take 1 tablet by ORAL route every 6 hours - for up to 5 days; do not exceed 8 tablets per day.; 30 tablet. Zanaflex 4 mg Oral Tablet - take 1 tablet by ORAL route every 8 hours As needed; 20 tablet. - Medication Reconciliation Form, Thank You Letter, Antibiotic Education, Prescription Opioid Use form. - Follow up: Private Physician; When: 2 - 3 days; Reason: Recheck today's complaints, Continuance of care, Re-evaluation by your physician. Signatures: Dispatcher [employer] Se Lee MD MD cha Mickail, Joel, PA PA Katherin Nolasco, RN RN Yogi Ly RN RN jd3 Corrections: (The following items were deleted from the chart) 04/27 17:19 15:39 04/27/2021 15:39 Discharged to Home. Impression: Sciatica, left side. Condition jd3 is Stable. Forms are Medication Reconciliation Form, Thank You Letter, Antibiotic Education, Prescription Opioid Use. Follow up: Private Physician; When: 2 - 3 days; Reason: Recheck today's complaints, Continuance of care, Re-evaluation by your physician. niesha
--- NOTE | 2021-04-27 15:40 | ER ---
Nurse's Notes [facility] Name: Elaine Rowland Age: 50 yrs Sex: Female : 1970 Arrival Date: 04/27/2021 Time: 09:28 Bed 5 Private MD: Diagnosis: Sciatica, left side Presentation: 04/27 09:28 Chief complaint: EMS states: "pt is report left leg numbness that started yesterday at [facility] about 1900. pt reports that it is still there today on top of her right arm feeling numbness too. pt has history of diabetes and hypertension, but has been out of her meds for about a week.". Coronavirus screen: At this time, the client does not indicate any symptoms associated with coronavirus-19. Ebola Screen: Patient negative for fever greater than or equal to 101.5 degrees Fahrenheit, and additional compatible Ebola Virus Disease symptoms. Initial Sepsis Screen: Does the patient meet any 2 criteria? No. Patient's initial sepsis screen is negative. Does the patient have a suspected source of infection? No. Patient's initial sepsis screen is negative. Risk Assessment: Do you want to hurt yourself or someone else? Patient reports no desire to harm self or others. Onset of symptoms was April 26, 2021. 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 - Social history:: Smoking status: Patient/guardian denies using tobacco, Stopped _ months ago 3. Screenin:37 Abuse screen: Denies threats or abuse. Nutritional screening: No deficits noted. jd3 Tuberculosis screening: No symptoms or risk factors identified. VAN Screening: Arm Drift: Patient shows no arm weakness. Patient is VAN negative. The patient has not been NPO before screening. The patient is currently on the following diet: regular The patient is alert, able to follow commands. The patient does not exhibit slurred or garbled speech The patient is not exhibiting difficulty speaking. The patient does not exhibit difficulty understanding words. The patient is able to swallow own secretions with no drooling or need for suction. Patient tolerated one teaspoon of water. No drooling, immediate coughing, gurgling, or clearing of the throat was noted. The patient tolerated 90mL of water. No drooling, immediate coughing, gurgling, or clearing of the throat was noted. The patient passed the bedside swallow screening. Oral medications may be given as ordered. Contact Physician for further diet orders. Provider notified of bedside swallow screening results: David GUTHRIE. Fall Risk Ambulatory Aid- None/Bed Rest/Nurse Assist (0 pts). Gait- Weak (10 pts.). Mental Status- Oriented to own ability (0 pts). Total Rosa Fall Scale indicates No Risk (0-24 pts). Assessment: 09:36 General: Appears in no apparent distress. comfortable, Behavior is calm, cooperative, jd3 appropriate for age. Pain: Complains of pain in right arm and left leg Quality of pain is described as sharp, numb. Neuro: Level of Consciousness is awake, alert, obeys commands, Oriented to person, place, time, situation. Cardiovascular: Capillary refill < 3 seconds Patient's skin is warm and dry. Respiratory: Airway is patent Respiratory effort is even, unlabored, Respiratory pattern is regular, symmetrical, Denies cough, shortness of breath. GI: No signs and/or symptoms were reported involving the gastrointestinal system. : No signs and/or symptoms were reported regarding the genitourinary system. EENT: No signs and/or symptoms were reported regarding the EENT system. Derm: Skin is intact, Skin is dry, Skin is normal, Skin temperature is warm. Musculoskeletal: Circulation, motion, and sensation intact. Range of motion: intact in all extremities. 11:09 Reassessment: Patient appears in no apparent distress at this time. No changes from jd3 previously documented assessment. Patient and/or family updated on plan of care and expected duration. Pain level reassessed. Patient is alert, oriented x 3, equal unlabored respirations, skin warm/dry/pink. 12:38 Reassessment: Patient appears in no apparent distress at this time. No changes from jd3 previously documented assessment. Patient and/or family updated on plan of care and expected duration. Pain level reassessed. Patient is alert, oriented x 3, equal unlabored respirations, skin warm/dry/pink. 13:41 Reassessment: Patient appears in no apparent distress at this time. Patient and/or jd3 family updated on plan of care and expected duration. Pain level reassessed. Patient is alert, oriented x 3, equal unlabored respirations, skin warm/dry/pink. 15:20 Reassessment: Patient appears in no apparent distress at this time. No changes from jd3 previously documented assessment. Patient and/or family updated on plan of care and expected duration. Pain level reassessed. Patient is alert, oriented x 3, equal unlabored respirations, skin warm/dry/pink. 15:41 Reassessment: Patient appears in no apparent distress at this time. Patient and/or jd3 family updated on plan of care and expected duration. Pain level reassessed. Patient is alert, oriented x 3, equal unlabored respirations, skin warm/dry/pink. discharge pending ride. 16:14 Reassessment: taxi service called. pt resting in room awaiting ride. jd3 17:17 Reassessment: Patient appears in no apparent distress at this time. Patient and/or jd3 family updated on plan of care and expected duration. Pain level reassessed. Patient is alert, oriented x 3, equal unlabored respirations, skin warm/dry/pink. pt assisted to front of ER in wheelchair to taxi home. Vital Signs: 09:35 BP 176 / 83; Pulse 74; Resp 17 S; Temp 97.8(TE); Pulse Ox 100% on R/A; Weight 63.5 kg jd3 (R); Height 5 ft. 2 in. (157.48 cm) (R); Pain 8/10; 11:09 BP 183 / 96; Pulse 80; Resp 16 S; Pulse Ox 100% on R/A; jd3 12:38 BP 120 / 63; Pulse 62; Resp 14 S; Pulse Ox 100% on R/A; jd3 13:41 BP 173 / 72; Pulse 62; Resp 15 S; Pulse Ox 100% on R/A; jd3 15:20 BP 146 / 72; Pulse 59; Resp 15 S; Pulse Ox 100% on R/A; jd3 17:18 BP 139 / 75; Pulse 60; Resp 16 S; Pulse Ox 99% on R/A; jd3 09:35 Body Mass Index 25.61 (63.50 kg, 157.48 cm) jd3 ED Course: 09:28 Patient arrived in ED. jd3 09:30 David Rebollar PA is PHCP. [facility] 09:30 Se Ohara MD is Attending Physician. [facility] 09:34 Triage completed. jd3 09:36 Arm band placed on. jd3 09:37 Patient has correct armband on for positive identification. Bed in low position. Call j light in reach. Side rails up X2. engine monitor on. Pulse ox on. NIBP on. 09:38 Yogi Grace RN is Primary Nurse. jd3 10:12 Inserted saline lock: 20 gauge in right antecubital area, using aseptic technique. jd3 Blood collected. 10:17 CT Head Brain wo Cont In Process Unspecified. EDMS 13:19 CT Lumbar Spine Wo Con In Process Unspecified. EDMS 17:17 No provider procedures requiring assistance completed. IV discontinued, intact, jd3 bleeding controlled, No redness/swelling at site. Pressure dressing applied. Administered Medications: 10:11 Drug: Zofran (Ondansetron) 4 mg Route: IVP; Site: right antecubital; jd3 11:00 Follow up: Response: No adverse reaction jd3 10:11 Drug: NS 0.9% 1000 ml Route: IV; Rate: 1 bolus; Site: right antecubital; jd3 11:00 Follow up: Response: No adverse reaction; IV Status: Completed infusion; IV Intake: jd3 1000ml 10:12 Drug: morphine 4 mg Route: IVP; Site: right antecubital; jd3 11:00 Follow up: Response: No adverse reaction; RASS: Alert and Calm (0) jd3 11:33 Drug: Valium (diazepam) 5 mg Route: IVP; Site: right antecubital; jd3 12:30 Follow up: Response: No adverse reaction jd3 11:33 Drug: fentaNYL (PF) 25 mcg Route: IVP; Site: right antecubital; jd3 12:30 Follow up: Response: No adverse reaction; RASS: Alert and Calm (0) jd3 14:26 Drug: Dilaudid (HYDROmorphone) 1 mg Route: IVP; Site: right antecubital; hb 15:20 Follow up: Response: No adverse reaction; RASS: Alert and Calm (0) jd3 14:26 Drug: Ketorolac 30 mg Route: IVP; Site: right antecubital; hb 15:20 Follow up: Response: No adverse reaction jd3 17:19 Not Given (Other Intervention Used): morphine 4 mg IVP once; RASS on ADMIN: Combtv4, jd3 Very Agttd3, Agttd2, Rstlss1, AlertClm0, Drwsy-1, Lt Sdtn-2, Mod Sdtn-3, Dp Sdtn-4, UnArsble-5 Intake: 11:00 IV: 1000ml; Total: 1000ml. jd3 Outcome: 15:39 Discharge ordered by . raji 17:18 Discharged to home via wheelchair, taxi jd3 17:18 Condition: stable 17:18 Discharge instructions given to patient, Instructed on discharge instructions, follow up and referral plans. medication usage, Demonstrated understanding of instructions, follow-up care, medications, Prescriptions given X 2. 17:19 Patient left the ED. jd3 Signatures: Dispatcher [employer] EDMS David Rebollar PA PA jmm Baxter, Heather, RN RN Yogi Ly RN RN jd3
[2021-04-27 17:33] VITALS: TEMP 97.8
[2021-04-27 17:46] VITALS: BP 139/75; O2SAT 99
--- NOTE | 2021-04-30 12:06 | EKG ---
Test Date: 2021-04-27 Test Time: 10:03:47 [employer] Instructor: TANVI MEASUREMENT RESULTS: Intervals: Rate: 62 WY: 156 QRSD: 80 QT: 428 QTc: 434 [place]: P: 48 WY: 156 QRS: -5 T: 31 INTERPRETIVE STATEMENTS: Normal sinus rhythm Possible Left atrial enlargement Septal infarct, age undetermined Abnormal ECG Compared to ECG 01/17/2021 02:58:56 Myocardial infarct finding now present T-wave abnormality no longer present Possible ischemia no longer present Prolonged QT interval no longer present Electronically Signed On 04-30-21 11:55:15 CDT by Kiko Grier
== END 2021-04-27 17:19 | disposition home or self-care (01) ==
LOC: ER 09:24
DX: M54.32 Sciatica, left side (principal); Z88.5 Allergy status to narcotic agent; Z88.6 Allergy status to analgesic agent
CPT/HCPCS: 36415; 70450; 72131; 80048; 80076; 83735; 83880; 84484; 85025; 85610; 93005; 96361; 96374; 96375; 99285; J1170; J2405; J3010; J3360; J7030

== ENCOUNTER 2021-10-04 13:52 | Emergency (ER) | payer OTHER, SELFPAY ==
[2021-10-04] MEDS ORDERED: DIPHENHYDRAMINE 50 MG/ML VIAL ONE (14:19)
[2021-10-04] MEDS ORDERED: TETRACAINE HCL 0.5% 4ML OPTH ONE (14:25)
--- NOTE | 2021-10-04 14:28 | ER ---
Nurse's Notes [facility] Name: Elaine Rowland Age: 51 yrs Sex: Female : 1970 Arrival Date: 10/04/2021 Time: 13:55 Bed 12 Private MD: Diagnosis: Other acute conjunctivitis Presentation: 10/04 14:01 Chief complaint: Patient states: Right and Left eye have been red, tearing with vg1 discharge for about 4 days. States blurred vision, headache, sensitivity to light and nausea. Coronavirus screen: Vaccine status: Patient reports being unvaccinated. Ebola Screen: Patient negative for fever greater than or equal to 101.5 degrees Fahrenheit, and additional compatible Ebola Virus Disease symptoms. Initial Sepsis Screen: Does the patient meet any 2 criteria? No. Patient's initial sepsis screen is negative. Does the patient have a suspected source of infection? No. Patient's initial sepsis screen is negative. Risk Assessment: Do you want to hurt yourself or someone else? Patient reports no desire to harm self or others. Onset of symptoms was September 30, 2021. 14:01 Method Of Arrival: Ambulatory vg1 14:01 Acuity: SHAINA 3 vg1 Triage Assessment: 14:03 General: Appears in no apparent distress. uncomfortable, Behavior is calm, cooperative. vg1 Pain: Complains of pain in head, right eye and left eye Pain currently is 10 out of 10 on a pain scale. EENT: Eyes are tearing on outer aspect of conjuctiva of right eye, iris of right eye, inner aspect of conjuctiva of right eye, outer aspect of conjuctiva of left eye, iris of left eye and inner aspect of conjunctiva of left eye Sclera/Cornea are reddened in outer aspect of conjuctiva of right eye, iris of right eye, inner aspect of conjuctiva of right eye, outer aspect of conjuctiva of left eye, iris of left eye and inner aspect of conjunctiva of left eye. Neuro: Level of Consciousness is awake, alert, obeys commands, Oriented to person, place, time, situation. 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 - Social history:: Smoking status: Patient denies any tobacco usage or history of. Screenin:27 Abuse screen: Denies threats or abuse. Denies injuries from another. Nutritional jl7 screening: No deficits noted. Tuberculosis screening: No symptoms or risk factors identified. Fall Risk None identified. Assessment: 14:05 General: Appears in no apparent distress. uncomfortable, Behavior is calm, cooperative, jl7 appropriate for age. EENT: Eyes are tearing on right eye and left eye with exudate noted from right eye Sclera/Cornea are reddened in right eye and left eye. Vital Signs: 14:01 BP 125 / 86; Pulse 97; Resp 16; Temp 97.6; Pulse Ox 100% ; Weight 65.77 kg; Height 5 vg1 ft. 2 in. (157.48 cm); Pain 10/10; 14:01 Body Mass Index 26.52 (65.77 kg, 157.48 cm) vg1 ED Course: 13:55 Patient arrived in ED. mr 14:03 Triage completed. vg1 14:03 Arm band placed on. vg1 14:06 Shelton Vidal NP is PHCP. pm1 14:06 Fercho Santiago MD is Attending Physician. pm1 14:19 Pravin Medina RN is Primary Nurse. jl7 14:27 Patient has correct armband on for positive identification. Bed in low position. Call jl7 light in reach. Side rails up X 1. 14:27 No provider procedures requiring assistance completed. Patient did not have IV access jl7 during this emergency room visit. Administered Medications: 14:27 Drug: Benadryl (diphenhydrAMINE) 25 mg Route: IM; Site: right deltoid; jl7 14:35 Follow up: Response: No adverse reaction jl7 14:33 Drug: Tetracaine Drops 0.5 % 1 drops Route: Ophthalmic; Site: both eyes; jl7 14:35 Follow up: Response: No adverse reaction jl7 Outcome: 14:28 Discharge ordered by . pm1 14:36 Discharged to home ambulatory. jl7 14:36 Condition: stable 14:36 Discharge instructions given to patient, Instructed on discharge instructions, follow up and referral plans. medication usage, Demonstrated understanding of instructions, follow-up care, medications, Prescriptions given X 1. 14:36 Patient left the ED. jl7 Signatures: Dana Neff mr YoungShelton, SUPERVISOR STONE SUPERVISOR STONE pm1 Pravin Medina RN RN jl7 Deya Moore RN RN vg1
--- NOTE | 2021-10-04 14:28 | EDPHYS ---
Physician Documentation [facility] Name: Elaine Rowland Age: 51 yrs Sex: Female : 1970 Arrival Date: 10/04/2021 Time: 13:55 Bed 12 Private MD: ED Physician Fercho Santiago HPI: 10/04 14:16 This 51 yrs old Female presents to ER via Ambulatory with complaints of pm1 Redness of Eye. 14:16 The patient is experiencing matting or discharge, redness, to both eyes, caused by an pm1 unknown mechanism. Onset: The symptoms/episode began/occurred 4 day(s) ago. Duration: the symptoms are continuous. Aggravated by light, rubbing, Alleviated by nothing. Associated signs and symptoms: Pertinent positives: headache, Pertinent negatives: fever. Patient does not utilize any form of vision correction. Severity of symptoms: in the emergency department the symptoms are unchanged. The patient has not experienced similar symptoms in the past. The patient has not recently seen a physician. [employer]: 14:03 LMP N/A - Post-menopause vg1 Historical: - Allergies: 14:03 HYDROCODONE; vg1 14:03 Ibuprofen; vg1 - Home Meds: 14:03 gabapentin Oral [Active]; trufix [Active]; Glimepiride Oral [Active]; Insulin [Active]; vg1 - PMHx: 14:03 abd hernia; acid reflux; Anxiety; Diabetes - NIDDM; Hyperlipidemia; vg1 - Immunization history:: Client reports having NOT received the Covid vaccine. - Social history:: Smoking status: Patient denies any tobacco usage or history of. ROS: 14:16 Constitutional: Negative for fever, chills, and weight loss. pm1 14:16 Cardiovascular: Negative for chest pain, palpitations, and edema, Respiratory: Negative for shortness of breath, cough, wheezing, and pleuritic chest pain, MS/Extremity: Negative for injury and deformity, Skin: Negative for injury, rash, and discoloration. 14:16 Eyes: Positive for discharge, itching, matting, pain, Negative for vision loss. 14:16 Neuro: Positive for headache. 14:16 All other systems are negative. Exam: 14:16 Constitutional: This is a well developed, well nourished patient who is awake, alert, pm1 and in no acute distress. Head/Face: Normocephalic, atraumatic. 14:16 Skin: Warm, dry with normal turgor. Normal color with no rashes, no lesions, and no evidence of cellulitis. MS/ Extremity: Pulses equal, no cyanosis. Neurovascular intact. Full, normal range of motion. 14:16 Eyes: Pupils: no acute changes, Extraocular movements: no acute changes, Conjunctiva: injected, bilaterally. 14:16 Cardiovascular: Exam negative for acute changes, Rate: normal, Rhythm: regular, Pulses: no pulse deficits are appreciated. 14:16 Respiratory: Exam negative for acute changes, respiratory distress, shortness of breath. 14:16 Neuro: Exam negative for acute changes, Orientation: is normal, Mentation: is normal, Motor: is normal, moves all fours, Gait: is steady, at a normal pace, without difficulty. Vital Signs: 14:01 BP 125 / 86; Pulse 97; Resp 16; Temp 97.6; Pulse Ox 100% ; Weight 65.77 kg; Height 5 vg1 ft. 2 in. (157.48 cm); Pain 10/10; 14:01 Body Mass Index 26.52 (65.77 kg, 157.48 cm) vg1 MDM: 14:06 Patient medically screened. pm1 14:16 Data reviewed: vital signs. pm1 14:16 Counseling: I had a detailed discussion with the patient and/or guardian regarding: the pm1 historical points, exam findings, and any diagnostic results supporting the discharge/admit diagnosis, the need for outpatient follow up, an opthalmologist, to return to the emergency department if symptoms worsen or persist or if there are any questions or concerns that arise at home. Administered Medications: 14:27 Drug: Benadryl (diphenhydrAMINE) 25 mg Route: IM; Site: right deltoid; jl7 14:35 Follow up: Response: No adverse reaction jl7 14:33 Drug: Tetracaine Drops 0.5 % 1 drops Route: Ophthalmic; Site: both eyes; jl7 14:35 Follow up: Response: No adverse reaction jl7 Disposition Summary: 10/04/21 14:28 Discharge Ordered Location: Home pm1 Problem: new pm1 Symptoms: have improved pm1 Condition: Stable pm1 Diagnosis - Other acute conjunctivitis pm1 Followup: pm1 - With: Emergency Department - When: As needed - Reason: Worsening of condition Followup: pm1 - With: Private Physician - When: 2 - 3 days - Reason: Recheck today's complaints, Continuance of care, Re-evaluation by your physician Discharge Instructions: - Discharge Summary Sheet pm1 - Bacterial Conjunctivitis, Adult pm1 Forms: - Medication Reconciliation Form pm1 - Thank You Letter pm1 - Antibiotic Education pm1 - Prescription Opioid Use pm1 Prescriptions: - Erythromycin 5 mg/gram (0.5 %) Ophthalmic Ointment - apply 1 centimeter by OPHTHALMIC route every 8 hours for 7 days; 1 tube; pm1 Refills: 0, Product Selection Permitted Addendum: 10/13/2021 05:25 Co-signature as Attending Physician, Fercho Santiago MD PA/LABOR RELATIONS DIRECTOR's history reviewed, m a2 patient interviewed, and examined. I agree with assessment and care plan and confirm the diagnosis (es) above. Signatures: Shelton Vidal, VALDEZ LABOR RELATIONS DIRECTOR pm1 Pravin Medina, RN RN jl7 Fercho Santiago MD MD ma2 Deya Moore RN RN vg1
[2021-10-04 15:20] VITALS: BP 125/86; TEMP 97.6; O2SAT 100
== END 2021-10-04 14:36 | disposition home or self-care (01) ==
LOC: ER 13:52
DX: H10.33 Unspecified acute conjunctivitis, bilateral (principal); E11.9 Type 2 diabetes mellitus without complications; E78.5 Hyperlipidemia, unspecified; Z79.4 Long term (current) use of insulin; Z88.5 Allergy status to narcotic agent; Z88.6 Allergy status to analgesic agent
CPT/HCPCS: 96372; 99283; J1200

== ENCOUNTER 2023-02-19 17:19 | Observation (INO) | payer OTHER, SELFPAY ==
[2023-02-19 18:17] LABS: Absolute Lymphocytes (CBC) 1.5 K/uL (0.7-4.9); Hematocrit 37.9 % (36.0-45.0); Lymphocytes % 23.4 % (15.3-44.8); MCV 85.8 fL (80-100); MPV 8.4 fL (7.6-11.3); RBC Red Blood Cell Count 4.42 M/uL (3.86-4.86)
--- NOTE | 2023-02-19 18:20 | RAD REPORT ---
EXAM DESCRIPTION: Bella Single View02/19/2023 6:07 pm CLINICAL HISTORY: Chest pain COMPARISON: 2016 FINDINGS: The lungs appear clear of acute infiltrate. The heart is normal size IMPRESSION: No acute abnormalities displayed
[2023-02-19 18:53] LABS: ALT/SGPT 37 U/L (13-56); AST/SGOT 14 U/L (15-37); Albumin 3.8 g/dL (3.4-5.0); Alkaline Phosphatase 144 U/L (45-117); BUN Blood Urea Nitrogen 26 mg/dL (7-18); Bicarbonate 26 mEq/L (21-32); Bilirubin Total 0.5 mg/dL (0.2-1.0); Glomerular Filtration Rate 59 ml/min (=/>90); Potassium 3.6 mEq/L (3.5-5.1); Protein, Total 7.8 g/dL (6.4-8.2); Sodium Level 131 mEq/L (136-145)
[2023-02-19 18:54] LABS: Troponin High Sensitivity < 3.0 pg/mL (<58.9)
[2023-02-19 18:55] LABS: Glucose Level 492 mg/dL (74-106)
[2023-02-19 19:04] LABS: Urine Bacteria None Seen /HPF (<20); Urine Bilirubin NEGATIVE (Negative); Urine Blood Negative (Negative); Urine Clarity Clear (Clear); Urine Color Colorless (Yellow); Urine Glucose 4+ (Over) (Negative); Urine Protein NEGATIVE (Negative); Urine RBC <5 /HPF (None Seen); Urine Urobilinogen Normal (Normal)
[2023-02-19] MEDS ORDERED: MORPHINE 4 MG/ML SYR ONE (20:04)
[2023-02-19] MEDS ORDERED: ONDANSETRON 4 MG/2 ML VIAL ONE (20:05)
--- NOTE | 2023-02-19 20:25 | P.HP ---
Certification for Inpatient Patient admitted to: Observation With expected LOS: <2 Midnights Patient will require the following post-hospital care: None Practitioner: I am a practitioner with admitting privileges, knowledge of patient current condition, hospital course, and medical plan of care. Services: Services provided to patient in accordance with Admission requirements found in Title 42 Section 412.3 of the Code of Federal Regulations Patient History Date of Service: 02/19/23 Reason for admission: Chest Pain History of Present Illness: Patient is a 52 year female with past medical history of hypertension, hyperlipidemia, and non-insulin dependent type 2 diabetes who presented to the emergency department with complaints of chest pain x 2 days. Her labs today are significant for sodium 131, chloride 95, BUN 26, cr 1.12, glucose 492, troponin < 3. Urine with 4+ glucose, 2+ ketones, 75 LE, 10-20 WBC. EKG showed NSR with right bundle branch block. She received 325 mg aspirin via EMS and later received 2L fluids, nitro x 2, 10 units insulin, morphine, and zofran. She states her chest pain has improved, but still persists. ED provider wishes to admit patient for further management, ACS rule out. Allergies hydrocodone Allergy (Mild, Verified 01/17/21 08:54) Itching ibuprofen Allergy (Mild, Verified 01/17/21 08:54) Itching Home medications list reviewed: Yes Home Medications: Amox/Clavulanate [Augmentin 500-125 mg Tab] 500 mg PO BID #14 tab 01/18/21 Folic Acid 1 mg PO DAILY #90 tablet 01/18/21 Insulin Glargine,Hum.rec.anlog [Lantus Solostar] 10 unit SQ BID #1 packet 01/18/21 levETIRAcetam [Keppra*] 500 mg PO BID #60 tab 01/18/21 - Past Medical/Surgical History -: Diabetes mellitus type 2 -: Hypertension -: Hyperlipidemia -: COPD -: GERD -: Hernia Repair Psychosocial/ Personal History: Patient lives with her . - Family History Family History: Reviewed- Non-Contributory - Social History Smoking Status: Former smoker Alcohol use: No CD- Drugs: No Caffeine use: Yes Place of Residence: Home Review of Systems Cardiovascular: Chest Pain Physical Examination - Vital Signs Temperature: 99.3 F Blood Pressure: 131/68 Pulse: 99 Respirations: 17 Pulse Ox (%): 96 - Physical Exam General: Alert, In no apparent distress HEENT: Atraumatic, EOMI, Sclerae nonicteric Neck: Supple, 2+ carotid pulse no bruit Respiratory: Clear to auscultation bilaterally, Normal air movement Cardiovascular: Regular rate/rhythm, Normal S1 S2 Gastrointestinal: Normal bowel sounds, No tenderness Musculoskeletal: No tenderness Integumentary: No rashes Neurological: Normal speech, Normal affect - Studies Laboratory Data (last 24 hrs) 02/19/23 18:10: Sodium 131 L, Potassium 3.6, BUN 26 H, Creatinine 1.12 H, Glucose 492 H*, Total Bilirubin 0.5, AST 14 L, ALT 37, Alkaline Phosphatase 144 H 02/19/23 18:10: WBC 6.30, Hgb 13.0, Hct 37.9, Plt Count 148 L Assessment and Plan - Problems (Diagnosis) (1) Chest pain Current Visit: Yes Status: Acute Qualifiers: Chest pain type: unspecified Qualified Code(s): R07.9 - Chest pain, unspecified (2) Type 2 diabetes mellitus Current Visit: Yes Status: Chronic Qualifiers: Diabetes mellitus rn long term care insulin use: without skilled nursing use Diabetes mellitus complication status: with hyperglycemia Qualified Code(s): E11.65 - T ype 2 diabetes mellitus with hyperglycemia (3) Hypertension Current Visit: Yes Status: Chronic Qualifiers: Hypertension type: primary hypertension Qualified Code(s): I10 - Essential (primary) hypertension (4) COPD (chronic obstructive pulmonary disease) Current Visit: Yes Status: Chronic Qualifiers: COPD type: unspecified COPD Qualified Code(s): J44.9 - Chronic obstructive pulmonary disease, unspecified - Plan Patient is admitted for observation, for ACS rule out. Denies history of coronary artery disease or prior cardiac workup. Initial troponin negative, trend. Monitor on telemetry. Cardiology consulted. Echo ordered. Aspirin and atorvastatin daily. Patient with history of noncompliance. Has been out of her metformin for 1 month. [facility] accu checks with moderate sliding scale and diabetic diet. Check lipid panel and A1c in the morning. Monitor and replete electrolytes per protocol. Reconcile and continue home medications. Lovenox for VTE prophylaxis. Full code. Discharge Plan: Home Plan to discharge in: 24 Hours - Advance Directives Does patient have a Living Will: No Does patient have a Durable POA for Healthcare: No - Code Status/Comfort Care Code Status Assessed: Yes Code Status: Full Code Physician Review: Patient Assessed, Agree with Above Assessment and Plan Critical Care: No Time Spent Managing Pts Care (In Minutes): 50
[2023-02-19] MEDS ORDERED: NA CHLORIDE 0.9% 1,000 ML ONE (20:34)
[2023-02-19] MEDS ORDERED: INSULIN -REGULAR HUMAN 50 UNIT/0.5 ML ML ONE (20:34)
[2023-02-19 20:36] LABS: Protime INR 0.93
--- NOTE | 2023-02-19 21:24 | EDPHYS ---
Physician Documentation [facility] Name: Elaine Rowland Age: 52 yrs Sex: Female : 1970 Arrival Date: 02/19/2023 Time: 17:29 Bed 14 Private MD: ED Physician Dariusz Kumar HPI: 02/19 18:11 This 52 yrs old Female presents to ER via EMS with complaints of Chest Pain, High Blood rt Sugar. 18:11 Patient presents to the ED with hyperglycemia. Patient reportedly has been out of her rt metformin for about 1 month. She has had chest pain for 3 days, intermittently, more consistent and more severe today. She denies aggravating or alleviating factors. She denies any coronary disease. Denies other acute complaints at this time. Symptoms are moderate in severity, no other aggravating or alleviating factors.. Historical: - Allergies: 17:33 HYDROCODONE; ll1 17:33 Ibuprofen; ll1 - PMHx: 17:33 abd hernia; acid reflux; Anxiety; Diabetes - NIDDM; Hyperlipidemia; COPD; Hypertensive ll1 disorder; - Immunization history:: Client reports receiving the 2nd dose of the Covid vaccine. - Social history:: Smoking status: Patient/guardian denies using tobacco. ROS: 18:12 Constitutional: Negative for fever, chills, and weight loss, Respiratory: Negative for rt shortness of breath, cough, wheezing, and pleuritic chest pain, Abdomen/GI: Negative for abdominal pain, nausea, vomiting, diarrhea, and constipation, MS/Extremity: Negative for injury and deformity, Skin: Negative for injury, rash, and discoloration, Neuro: Negative for headache, weakness, numbness, tingling, and seizure, Psych: Negative for depression, anxiety, suicide ideation, homicidal ideation, and hallucinations. 18:12 Cardiovascular: Positive for chest pain, Negative for edema. Exam: 18:12 Constitutional: This is a well developed, well nourished patient who is awake, alert, rt and in no acute distress. Head/Face: Normocephalic, atraumatic. Eyes: Pupils equal round and reactive to light, extra-ocular motions intact. Lids and lashes normal. Conjunctiva and sclera are non-icteric and not injected. Cornea within normal limits. Periorbital areas with no swelling, redness, or edema. Chest/axilla: Normal chest wall appearance and motion. Nontender with no deformity. No lesions are appreciated. Cardiovascular: Regular rate and rhythm with a normal S1 and S2. No gallops, murmurs, or rubs. Normal PMI, no JVD. No pulse deficits. Respiratory: Lungs have equal breath sounds bilaterally, clear to auscultation and percussion. No rales, rhonchi or wheezes noted. No increased work of breathing, no retractions or nasal flaring. Abdomen/GI: Soft, non-tender, with normal bowel sounds. No distension or tympany. No guarding or rebound. No evidence of tenderness throughout. Skin: Warm, dry with normal turgor. Normal color with no rashes, no lesions, and no evidence of cellulitis. MS/ Extremity: Pulses equal, no cyanosis. Neurovascular intact. Full, normal range of motion. Neuro: Awake and alert, GCS 15, oriented to person, place, time, and situation. Cranial nerves II-XII grossly intact. Motor strength 5/5 in all extremities. Sensory grossly intact. Cerebellar exam normal. Normal gait. 18:12 ECG was reviewed by the Attending Physician. 20:02 EKG reveals normal sinus rhythm at rate of 86 with right bundle branch block no ST sp4 elevation or depression and no ectopy, no acute ischemia apparent on EKG, EKG time 1753 Vital Signs: 17:55 BP 167 / 84; Pulse 88; Resp 18; Temp 99.3; Pulse Ox 99% ; Weight 68.95 kg; Height 5 ft. ll1 2 in. ; Pain 10/10; 18:49 BP 155 / 71; Pulse 86; Resp 17; Pulse Ox 98% on R/A; ll1 18:58 BP 131 / 68; Pulse 99; Pulse Ox 96% on R/A; ll1 20:37 BP 133 / 61; Pulse 100; Resp 20 S; Pulse Ox 100% on R/A; ha1 17:55 Body Mass Index 27.80 (68.95 kg, 157.48 cm) ll1 17:55 Pain Scale: Adult ll1 MDM: 17:33 Patient medically screened. rt 20:02 Differential diagnosis: abnormal EKG, anxiety, coronary artery disease chest wall pain, sp4 congestive heart failure gastroesophageal reflux disease (GERD), myocarditis, pancreatitis, unstable angina, Uncontrolled diabetes with medication noncompliance. HEART Score: History: Moderately Suspicious (1), ECG: Non specific repolarization disturbance / LBTB / PM (1), Age: > 45 and < 65 years (1), Risk Factors: > or = 3 Risk factors for atherosclerotic disease (2), Troponin: < or = 1 x Normal Limit (0), Total Score = 5. Data reviewed: vital signs, nurses notes, EMS record, lab test result(s), EKG, radiologic studies, plain films. ED course: Patient will be given IV insulin 10 units for her blood sugar of almost 500, patient warrants admission for rule out ACS repeat EKG and repeat troponin in a.m., patient was discussed with admitting hospitalist who accepts patient to Dr. Tommie Centeno. 20:05 ED course: Chest x-ray reveals no acute cardiopulmonary abnormality, EKG revealed right sp4 bundle branch block but no acute ST elevation or depression.. 02/19 17:44 Order name: CBC with Diff; Complete Time: 18:50 rt 02/19 17:44 Order name: CMP; Complete Time: 19:00 rt 02/19 17:44 Order name: Troponin High Sensitivity; Complete Time: 19:00 rt 02/19 18:12 Order name: UAM; Complete Time: 19:18 rt 02/19 19:09 Order name: Urine Culture EDMS 02/19 19:31 Order name: Lipase; Complete Time: 21:06 sp4 02/19 19:31 Order name: PT-INR; Complete Time: 21:06 sp4 02/19 20:26 Order name: Glucose, Ancillary Testing; Complete Time: 21:06 EDMS 02/19 17:44 Order name: Chest Single View XRAY; Complete Time: 21:06 rt 02/19 17:44 Order name: EKG; Complete Time: 17:44 rt 02/19 17:44 Order name: EKG - Nurse/Tech; Complete Time: 17:55 rt EC:12 Rate is 86 beats/min. Rhythm is regular, Normal Sinus Rhythm with Right bundle branch rt block. CT interval is normal. QRS interval is normal. QT interval is normal. Clinical impression: NSR w/ Non-specific ST/T Changes. 20:02 Rate is 86 beats/min. Rhythm is regular, Normal Sinus Rhythm. Clinical impression: No sp4 evidence of ischemia. Interpreted by me. Administered Medications: 18:54 Drug: NS 0.9% IV 1000 ml Route: IV; Rate: 1 bolus; Site: left hand; ll1 18:54 Drug: Nitroglycerin Sublingual 0.4 mg Route: Sublingual; ll1 19:05 Drug: Nitroglycerin Sublingual 0.4 mg Route: Sublingual; ha1 20:00 Drug: Ondansetron IVP 4 mg Route: IVP; Site: left wrist; ha1 20:04 Drug: morphine IVP or IV 4 mg Route: IVP; Infused Over: 4 mins; Site: left wrist; ha1 20:35 Drug: Insulin Regular Human IVP 10 units {Co-Signature: kr3 (Saniya Hawkins RN).} Route: ha1 IVP; Site: left wrist; 20:35 Drug: NS 0.9% IV 1000 ml Route: IV; Rate: 125 ml/hr; Site: left wrist; ha1 Disposition Summary: 02/19/23 20:00 Hospitalization Ordered Hospitalization Status: Observation sp4 Provider: Fercho Centeno sp4 Location: Telemetry/MedSurg (observation) sp4 Condition: Stable sp4 Problem: new sp4 Symptoms: have improved sp4 Bed/Room Type: Standard sp4 Room Assignment: 220(02/19/23 20:16) mw Diagnosis - Angina pectoris, unspecified sp4 - Uncontrolled diabetes with hyperglycemia, moderate dehydration, medication sp4 noncompliance, midsternal chest pain with palpitation Forms: - Medication Reconciliation Form sp4 - SBAR form sp4 Signatures: Dispatcher [employer] EDYen Fernandez RN RN Silvano Givens RN RN [facility] Stephanie Easton RN RN [facility] Lane Treviño MD MD rt Dariusz Kumar MD MD sp4 Saniya Hawkins RN kr3 Corrections: (The following items were deleted from the chart) 20:16 20:00 sp4 mw
--- NOTE | 2023-02-19 21:24 | ER ---
Nurse's Notes [facility] Name: Elaine Rowland Age: 52 yrs Sex: Female : 1970 Arrival Date: 02/19/2023 Time: 17:29 Bed 14 Private MD: Diagnosis: Angina pectoris, unspecified;Uncontrolled diabetes with hyperglycemia, moderate dehydration, medication noncompliance, midsternal chest pain with palpitation Presentation: 02/19 17:31 Chief complaint: Patient states: CP for 2 days, worse today. EMS states: Out of ll1 metformin for 1 month. BS reads HI. 90%RA, O2 2L NC applied 100%. 324 mg PO aspirin, 22 L hand, LR 50 ml bolus. VSS. Coronavirus screen: Vaccine status: Patient reports receiving the 2nd dose of the covid vaccine. Client denies travel out of the [place] in the last 14 days. At this time, the client does not indicate any symptoms associated with coronavirus-19. Ebola Screen: Patient denies travel to an Ebola-affected area in the 21 days before illness onset. Initial Sepsis Screen: Does the patient meet any 2 criteria? No. Patient's initial sepsis screen is negative. Does the patient have a suspected source of infection? No. Patient's initial sepsis screen is negative. Risk Assessment: Do you want to hurt yourself or someone else? Patient reports no desire to harm self or others. Onset of symptoms was February 18, 2023. 17:31 Method Of Arrival: EMS: [facility] ll1 17:31 Acuity: SHAINA 3 ll1 Triage Assessment: 17:34 General: Appears uncomfortable, Behavior is calm, cooperative, appropriate for age. ll1 Pain: Complains of pain in chest Quality of pain is described as pressure. Cardiovascular: Reports chest pain. Historical: - Allergies: 17:33 HYDROCODONE; ll1 17:33 Ibuprofen; ll1 - PMHx: 17:33 abd hernia; acid reflux; Anxiety; Diabetes - NIDDM; Hyperlipidemia; COPD; Hypertensive ll1 disorder; - Immunization history:: Client reports receiving the 2nd dose of the Covid vaccine. - Social history:: Smoking status: Patient/guardian denies using tobacco. Screenin:51 [facility] ED Fall Risk Assessment (Adult) Score/Fall Risk Level 0 - 2 = Low Risk ll1 Oriented to surroundings, Maintained a safe environment, Educated pt \T\ family on fall prevention, incl call for assistance when getting out of bed, Hourly rounding (assess needs \T\ fall precautionary measures) done. Abuse screen: Denies threats or abuse. Nutritional screening: No deficits noted. Tuberculosis screening: No symptoms or risk factors identified. Assessment: 18:00 Reassessment: No changes from previously documented assessment. Patient and/or family ll1 updated on plan of care and expected duration. Pain level reassessed. Patient is alert, oriented x 3, equal unlabored respirations, skin warm/dry/pink. 18:50 Reassessment: No changes from previously documented assessment. Patient and/or family ll1 updated on plan of care and expected duration. Pain level reassessed. Patient is alert, oriented x 3, equal unlabored respirations, skin warm/dry/pink. 19:37 General: Appears comfortable, Behavior is calm, cooperative. Pain: Complains of pain in ha1 chest Pain does not radiate. Pain currently is 9 out of 10 on a pain scale. Pain began suddenly. Neuro: Level of Consciousness is awake, alert, obeys commands, Oriented to person, place, time, situation. Cardiovascular: Capillary refill < 3 seconds Patient's skin is warm and dry. Respiratory: Airway is patent Respiratory effort is even, unlabored, Respiratory pattern is regular, symmetrical. GI: No signs and/or symptoms were reported involving the gastrointestinal system. : No signs and/or symptoms were reported regarding the genitourinary system. Musculoskeletal: Circulation, motion, and sensation intact. 20:38 Reassessment: Patient and/or family updated on plan of care and expected duration. Pain ha1 level reassessed. Patient is alert, oriented x 3, equal unlabored respirations, skin warm/dry/pink. 21:22 Reassessment: Patient and/or family updated on plan of care and expected duration. Pain ha1 level reassessed. Patient is alert, oriented x 3, equal unlabored respirations, skin warm/dry/pink. Vital Signs: 17:55 BP 167 / 84; Pulse 88; Resp 18; Temp 99.3; Pulse Ox 99% ; Weight 68.95 kg; Height 5 ft. ll1 2 in. ; Pain 10/10; 18:49 BP 155 / 71; Pulse 86; Resp 17; Pulse Ox 98% on R/A; ll1 18:58 BP 131 / 68; Pulse 99; Pulse Ox 96% on R/A; ll1 20:37 BP 133 / 61; Pulse 100; Resp 20 S; Pulse Ox 100% on R/A; ha1 17:55 Body Mass Index 27.80 (68.95 kg, 157.48 cm) ll1 17:55 Pain Scale: Adult ll1 ED Course: 17:29 Patient arrived in ED. ll1 17:31 Lane Treviño MD is Attending Physician. rt 17:33 Triage completed. ll1 17:33 Arm band placed on Patient placed in an exam room, on a stretcher. ll1 17:33 No provider procedures requiring assistance completed. Maintain EMS IV. Dressing ll1 intact. Good blood return noted. Site clean \T\ dry. Gauge \T\ site: 22 G L hand. Oxygen administration via nasal cannula \T\ 2L/min. 17:46 Silvano Givens RN is Primary Nurse. ll1 18:09 Chest Single View XRAY In Process Unspecified. EDMS 18:51 Patient has correct armband on for positive identification. Bed in low position. Call ll1 light in reach. Side rails up X2. Client placed on continuous cardiac and pulse oximetry monitoring. NIBP monitoring applied. marketing administrative assistant on. 19:18 Attending Physician role handed off by Lane Treviño MD sp4 19:18 Dariusz Kumar MD is Attending Physician. sp4 19:59 Fercho Centeno MD is Hospitalizing Provider. sp4 21:22 Patient admitted, IV remains in place. ha1 Administered Medications: 18:54 Drug: NS 0.9% IV 1000 ml Route: IV; Rate: 1 bolus; Site: left hand; ll1 18:54 Drug: Nitroglycerin Sublingual 0.4 mg Route: Sublingual; ll1 19:05 Drug: Nitroglycerin Sublingual 0.4 mg Route: Sublingual; ha1 20:00 Drug: Ondansetron IVP 4 mg Route: IVP; Site: left wrist; ha1 20:04 Drug: morphine IVP or IV 4 mg Route: IVP; Infused Over: 4 mins; Site: left wrist; ha1 20:35 Drug: Insulin Regular Human IVP 10 units {Co-Signature: kr3 (Saniya Hawkins RN).} Route: ha1 IVP; Site: left wrist; 20:35 Drug: NS 0.9% IV 1000 ml Route: IV; Rate: 125 ml/hr; Site: left wrist; ha1 Medication: 18:51 VIS not applicable for this client. ll1 Outcome: 20:00 Decision to Hospitalize by Provider. sp4 21:21 Admitted to Med/surg accompanied by tech, via wheelchair, room 220, with chart, Report ha1 called to NADIA [place] 21:21 Condition: stable 21:21 Discharge instructions given to patient, Instructed on the need for admit, Demonstrated understanding of instructions. 21:23 Patient left the ED. 1 Signatures: Dispatcher [employer] EDMS Silvano Givens RN RN 1 Stephanie Easton RN RN ha1 Lane Treviño MD MD rt Dariusz Kumar MD MD sp4 Saniya Hawkins RN kr3
[2023-02-19] MEDS ORDERED: ONDANSETRON 4 MG/2 ML VIAL IV PRN (21:39)
[2023-02-19] MEDS ORDERED: NITROGLYCERIN 0.4 MG/TAB SL PRN (21:39)
[2023-02-19] MEDS: ATORVASTATIN 40 MG TAB PO SCH (21:56)
[2023-02-19] MEDS: INSULIN -REGULAR HUMAN 50 UNIT/0.5 ML ML SQ SCH (21:56)
[2023-02-19] MEDS: NA CHLORIDE 0.9% 1,000 ML IV SCH (21:57)
[2023-02-19 22:43] VITALS: BMI 27.8
[2023-02-20] MEDS: MORPHINE 2 MG/ML SYR IV PRN ×2 (00:07→20:33)
[2023-02-20 04:30] LABS: Absolute Lymphocytes (CBC) 1.7 K/uL (0.7-4.9); Hematocrit 34.1 % (36.0-45.0); Lymphocytes % 32.3 % (15.3-44.8); MPV 8.8 fL (7.6-11.3); RBC Red Blood Cell Count 3.96 M/uL (3.86-4.86)
[2023-02-20 04:50] LABS: Albumin 3.1 g/dL (3.4-5.0); Bilirubin Total 0.3 mg/dL (0.2-1.0); Magnesium 1.7 mg/dL (1.6-2.4); Phosphorus 3.6 mg/dL (2.5-4.9); Potassium 3.4 mEq/L (3.5-5.1); Protein, Total 6.4 g/dL (6.4-8.2)
[2023-02-20] MEDS: NA CHLORIDE 0.9% 1,000 ML IV SCH ×2 (06:53→15:28)
[2023-02-20] MEDS: INSULIN -REGULAR HUMAN 50 UNIT/0.5 ML ML SQ SCH ×4 (08:40→20:32)
[2023-02-20] MEDS: ACETAMINOPHEN 500 MG TAB PO PRN ×2 (08:41→15:33)
[2023-02-20] MEDS: ENOXAPARIN 40 MG/0.4 ML SQ SCH (08:41)
[2023-02-20] MEDS: ASPIRIN 81 MG CHEWABLE TABLET PO SCH (08:49)
[2023-02-20] MEDS ORDERED: POTASSIUM CL SA 10 MEQ TAB PO ONE (09:00)
[2023-02-20] MEDS ORDERED: MAGNESIUM SULFATE 1 gm IVPB 1 GM/100 ML BAG IV ONE (09:00)
[2023-02-20 10:45] LABS: Specific Gravity > 1.030 (1.005-1.030); Urine Bacteria <20 /HPF (<20); Urine Bilirubin NEGATIVE (Negative); Urine Blood Negative (Negative); Urine Clarity Clear (Clear); Urine Color Light-Yellow (Yellow); Urine Glucose 4+ (Over) (Negative); Urine Mucus Slight /HPF (None Seen); Urine Protein NEGATIVE (Negative); Urine RBC <5 /HPF (None Seen); Urine Urobilinogen Normal (Normal); Urine pH 5.5 (5.0-7.0)
[2023-02-20 15:12] LABS: Potassium 4.3 mEq/L (3.5-5.1)
[2023-02-20] MEDS ORDERED: HYDROCODONE/APAP 5/325 MG TAB PO PRN (15:38)
[2023-02-20] MEDS: levETIRAcetam 500 MG TAB PO SCH (20:32)
[2023-02-20] MEDS: ATORVASTATIN 40 MG TAB PO SCH (20:32)
[2023-02-20] MEDS: INSULIN GLARGINE 100 UNIT/ML SQ SCH (20:33)
[2023-02-20] MEDS ORDERED: HOME MED 1 EA UNK (Insulin Glargine,Hum.Rec.Anlog [Lantus Solostar] 20 UNIT) SQ SCH (21:00)
[2023-02-20] MEDS ORDERED: HOME MED 1 EA UNK (Insulin Glargine,Hum.Rec.Anlog [Lantus Solostar] 100 UNIT/ML Insuln.Pen SQ SCH (21:00)
[2023-02-21] MEDS: NA CHLORIDE 0.9% 1,000 ML IV SCH (01:15)
[2023-02-21 03:38] VITALS: O2SAT 98
[2023-02-21] MEDS: ACETAMINOPHEN 500 MG TAB PO PRN ×2 (04:55→09:03)
[2023-02-21 06:11] LABS: Magnesium 1.8 mg/dL (1.6-2.4); Potassium 3.9 mEq/L (3.5-5.1)
[2023-02-21 08:12] VITALS: BP 118/62; TEMP 97
[2023-02-21] MEDS ORDERED: FOLIC ACID 1 MG TABLET PO SCH (09:00)
[2023-02-21] MEDS ORDERED: MAGNESIUM SULFATE 1 gm IVPB 1 GM/100 ML BAG IV ONE (09:00)
[2023-02-21] MEDS ORDERED: POTASSIUM CL SA 10 MEQ TAB PO ONE (09:00)
[2023-02-21] MEDS: levETIRAcetam 500 MG TAB PO SCH (09:03)
[2023-02-21] MEDS: INSULIN -REGULAR HUMAN 50 UNIT/0.5 ML ML SQ SCH (09:04)
[2023-02-21] MEDS: ASPIRIN 81 MG CHEWABLE TABLET PO SCH (09:04)
[2023-02-21] MEDS: ENOXAPARIN 40 MG/0.4 ML SQ SCH (09:04)
--- NOTE | 2023-02-21 09:53 | P.PN ---
Subjective Date of Service: 02/20/23 Subjective: No new changes, No C/O voiced, Improving Review of Systems 10-point ROS is otherwise unremarkable Physical Examination - Vital Signs Temperature: 97.0 F Blood Pressure: 118/62 Pulse: 68 Respirations: 14 Pulse Ox (%): 99 - Physical Exam General: Alert, In no apparent distress HEENT: Atraumatic, PERRLA, EOMI Neck: Supple, JVD not distended Respiratory: Clear to auscultation bilaterally, Normal air movement Cardiovascular: Regular rate/rhythm, Normal S1 S2 Gastrointestinal: Normal bowel sounds, No tenderness Musculoskeletal: No tenderness Integumentary: No rashes Neurological: Normal speech, Normal tone, Normal affect Lymphatics: No axilla or inguinal lymphadenopathy - Studies Microbiology Data (last 24 hrs): 02/19/23 18:50 Clean Catch Urine [place] Count - Final <10,000 CFU/ML. 02/19/23 18:50 Clean Catch Urine - Final MIXED SIL. Medications List Reviewed: Yes Assessment & Plan - Problems (Diagnosis) (1) Chest pain Current Visit: Yes Status: Acute Qualifiers: Chest pain type: unspecified Qualified Code(s): R07.9 - Chest pain, unspecified (2) COPD (chronic obstructive pulmonary disease) Current Visit: Yes Status: Chronic Qualifiers: COPD type: unspecified COPD Qualified Code(s): J44.9 - Chronic obstructive pulmonary disease, unspecified (3) Hypertension Current Visit: Yes Status: Chronic Qualifiers: Hypertension type: primary hypertension Qualified Code(s): I10 - Essential (primary) hypertension (4) Type 2 diabetes mellitus Current Visit: Yes Status: Chronic Qualifiers: Diabetes mellitus extermination supervisor insulin use: without alf use Diabetes mellitus complication status: with hyperglycemia Qualified Code(s): E11.65 - Type 2 diabetes mellitus with hyperglycemia - Plan Plan: 1. Patient ruled out for acute coronary syndrome. Further work-up as an outpatient 2. Continue with pain control 3. PCP 4. Antiplatelet and statin therapy 5. GI and DVT prophylaxis Discharge Plan: Home Plan to discharge in: 24 Hours - Advance Directives Does patient have a Living Will: No Does patient have a Durable POA for Healthcare: No - Code Status/Comfort Care Code Status: Full Code Physician Review: Patient Assessed, Agree with Above Assessment and Plan Critical Care: No Time Spent Managing PTS Care (In Minutes): 35
[2023-02-21] MEDS: INSULIN GLARGINE 100 UNIT/ML SQ SCH (10:27)
--- NOTE | 2023-02-22 12:33 | EKG ---
Test Date: 2023-02-19 Test Time: 17:53:34 [facility] [facility]: THERESA MEASUREMENT RESULTS: Intervals: Rate: 86 NH: 158 QRSD: 86 QT: 386 QTc: 461 [place]: P: 71 NH: 158 QRS: 23 T: 22 INTERPRETIVE STATEMENTS: Sinus rhythm with fusion complexes ST abnormality, possible digitalis effect Compared to ECG 04/27/2021 10:03:47 Fusion complex(es) now present ST (T wave) deviation now present Myocardial infarct finding no longer present Electronically Signed On 02-22-23 12:27:49 CDT by Ruben Quesada
== END 2023-02-21 11:24 | disposition home or self-care (01) ==
LOC: ER 17:19 → ERHOLD 20:12 → 2ND 20:37
PROVIDERS: ADMIT Hospitalist; ATTEND Hospitalist
DX: R07.9 Chest pain, unspecified (principal); I10 Essential (primary) hypertension; E78.5 Hyperlipidemia, unspecified; E11.65 Type 2 diabetes mellitus with hyperglycemia; J44.9 Chronic obstructive pulmonary disease, unspecified; Z87.891 Personal history of nicotine dependence; Z88.6 Allergy status to analgesic agent; Z91.14 Patient's other noncompliance with medication regimen
CPT/HCPCS: 36415; 71045; 80048; 80053; 80061; 81001; 82947; 83036; 83690; 83735; 84100; 84484; 85025; 85610; 87086; 87088; 93005; 96374; 96375; 99285; G0378; J1650; J1815; J2270; J2405; J3475; J7030

== ENCOUNTER 2023-06-24 13:23 | Inpatient (IN) | payer OTHER, SELFPAY ==
[2023-06-24 13:58] LABS: Absolute Lymphocytes (CBC) 1.1 K/uL (0.7-4.9); Hematocrit 45.2 % (36.0-45.0); Lymphocytes % 11.5 % (15.3-44.8); MCV 88.7 fL (80-100); MPV 8.5 fL (7.6-11.3)
[2023-06-24] MEDS ORDERED: NA CHLORIDE 0.9% 1,000 ML ONE ×2 (14:02→15:28)
--- NOTE | 2023-06-24 14:15 | RAD REPORT ---
EXAM DESCRIPTION: RAD - Chest Single View - 06/24/2023 2:04 pm CLINICAL HISTORY: SOB COMPARISON: Chest Single View dated 02/19/2023; Chest Pa And Lat (2 Views) dated 03/16/2017 FINDINGS: Lines: None. Lungs: No evidence of edema or pneumonia. Pleural: No significant pleural effusions or pneumothorax. Cardiac: The heart size is within normal limits. Mediastinum: Within normal limits. Bones: No acute fractures. Other: None IMPRESSION: No acute cardiopulmonary disease.
[2023-06-24 14:22] LABS: Albumin 4.7 g/dL (3.4-5.0); Bilirubin Direct 0.3 mg/dL (0-0.2); Bilirubin Indirect, Calculated 1.1 mg/dL (0.2-0.8); Bilirubin Total 1.4 mg/dL (0.2-1.0); Protein, Total 9.4 g/dL (6.4-8.2)
[2023-06-24 14:24] LABS: Potassium 4.1 mEq/L (3.5-5.1)
--- NOTE | 2023-06-24 16:27 | EDPHYS ---
Physician Documentation [facility] Name: Elaine Rowland Age: 52 yrs Sex: Female : 1970 Arrival Date: 06/24/2023 Time: 13:23 Bed 19 Private MD: ED Physician Tahir Camilo HPI: 06/24 13:35 This 52 yrs old Female presents to ER via EMS with complaints of Anxiety, Breathing pm1 Difficulty. 13:35 The patient has shortness of breath at rest. pm1 13:35 Onset: The symptoms/episode began/occurred today, 2 day(s) ago. Duration: The symptoms pm1 are continuous. The patient's shortness of breath is aggravated by life stressors: lost apartment - homeless, anniversary of her family members, drug abuse - methamphetamine. Patient has not been eating or drinking. Associated signs and symptoms: Associated signs and symptoms: Pertinent negatives: chest pain, fever, nausea, vomiting, Cough. Severity of symptoms: in the emergency department the symptoms have improved. The patient has not recently seen a physician, and does not have an established primary care provider. Historical: - Allergies: 13:31 NKDA; iw - PMHx: 13:31 abd hernia; acid reflux; Anxiety; COPD; Diabetes - NIDDM; Hyperlipidemia; Hypertensive iw disorder; - Social history:: Smoking status: Patient/guardian denies using tobacco, Stopped _ months ago 1. ROS: 13:35 Cardiovascular: Negative for chest pain, palpitations, and edema. pm1 13:35 Abdomen/GI: Negative for abdominal pain, nausea, vomiting, diarrhea, and constipation, Back: Negative for injury and pain, : Negative for injury, bleeding, discharge, and swelling, MS/Extremity: Negative for injury and deformity, Skin: Negative for injury, rash, and discoloration, Neuro: Negative for headache, weakness, numbness, tingling, and seizure. 13:35 Constitutional: Positive for poor PO intake, Negative for body aches, fever. 13:35 Respiratory: Positive for shortness of breath, Negative for cough. 13:35 Psych: Positive for drug dependence, visual hallucinations, Negative for alcohol dependence, homicidal ideation, suicidal ideation. 13:35 All other systems are negative. Exam: 13:35 Constitutional: This is a well developed, well nourished patient who is awake, alert, pm1 and in no acute distress. Head/Face: Normocephalic, atraumatic. 13:35 Back: No spinal tenderness. No costovertebral tenderness. Full range of motion. Skin: Warm, dry with normal turgor. Normal color with no rashes, no lesions, and no evidence of cellulitis. MS/ Extremity: Pulses equal, no cyanosis. Neurovascular intact. Full, normal range of motion. 13:35 Eyes: Periorbital structures: appear normal, Pupils: no acute changes, Extraocular movements: no acute changes, Conjunctiva: injected, bilaterally. 13:35 Cardiovascular: Rate: tachycardic, actual rate is 122 bpm, Rhythm: regular, Pulses: no pulse deficits are appreciated, Heart sounds: normal, normal S1and S2. 13:35 Respiratory: Exam negative for acute changes, respiratory distress, shortness of breath, Breath sounds: are clear throughout. 13:35 Abdomen/GI: Exam negative for Inspection: abdomen appears normal, Palpation: abdomen is soft and non-tender, in all quadrants. 13:35 Neuro: Exam negative for acute changes, Orientation: is normal, Mentation: is normal, Motor: is normal, moves all fours. Vital Signs: 13:31 BP 161 / 102; Pulse 122; Resp 19; Temp 98.3; Pulse Ox 100% on R/A; Weight 86.18 kg; iw Height 5 ft. 2 in. ; Pain 10/10; 14:00 BP 152 / 79; Pulse 109; Resp 18; Pulse Ox 98% ; db 16:19 BP 193 / 89; Pulse 96; Resp 18; Pulse Ox 100% on R/A; db 19:15 BP 137 / 80; Pulse 98; Resp 20; Pulse Ox 98% on R/A; ha1 13:31 Body Mass Index 34.75 (86.18 kg, 157.48 cm) iw 13:31 Pain Scale: Adult iw MDM: 13:29 Patient medically screened. sp3 16:03 Data reviewed: vital signs. pm1 16:03 Counseling: I had a detailed discussion with the patient and/or guardian regarding: the pm1 historical points, exam findings, and any diagnostic results supporting the discharge/admit diagnosis, lab results, radiology results, the need for further work-up and treatment in the hospital. 16:14 Care significantly affected by the following chronic conditions: Diabetes, pm1 Hypertension, Chronic Obstructive Pulmonary Disease, Drug abuse. 16:57 Management of patient was discussed with the following: Hospitalist: Dr Centeno. Will see pm1 the patient. 17:25 Management of patient was discussed with the following: Opthamologist: Dr Espitia, he pm1 recommends eye culture and stain to help determine cause for the patient's eye discharge. Informed him that I have given tobramycin in the ER already and she has received topical eye antibiotics from prior ER visits for her eyes in the past 3 weeks. Stain will still be beneficial to help identify possible organism. Continue giving tobramycin Opthalmic. Discussed conversation with Dr Centeno. 18:20 ED course: Patient with reported inability to see from right eye for over 1 year. On pm1 examination with fluorescein and rosario lamp, patient with large central corneal abrasion present. Suspect that this is the reason that the patient has not been able to see for 1 year. No corneal abrasion present to left eye. IOP measurement to both eyes 25mmHG. Discussed with patient if she has had intercourse recently, patient reports that it has been years. Asked patient if she has had semen, ejaculate or bodily fluids into her face or eyes and she denied it. Antonia ZUNIGA and Chante tang present in the room for examination and discussion. 18:20 Differential diagnosis: Chronic Obstructive Pulmonary Disease ACS, RIO, Hyperglycemia, pm1 DKA, Corneal abrasion, Conjunctivis - viral, bacterial, gonococcal, chlamydia. 06/24 13:33 Order name: Basic Metabolic Panel; Complete Time: 14:25 pm06/24 13:33 Order name: CBC with Diff; Complete Time: 14:03 pm06/24 13:33 Order name: D-Dimer; Complete Time: 14:14 pm1 06/24 13:33 Order name: LFT's; Complete Time: 14:25 pm1 06/24 13:33 Order name: Troponin HS; Complete Time: 14:25 pm06/24 13:52 Order name: UDS; Complete Time: 18:47 pm1 06/24 13:52 Order name: ETOH Level; Complete Time: 18:40 pm1 06/24 17:08 Order name: CBC with Automated Diff EDMS 06/24 17:08 Order name: CBC with Automated Diff EDMS 06/24 17:08 Order name: Comprehensive Metabolic Panel EDMS 06/24 17:08 Order name: Comprehensive Metabolic Panel [facility] 06/24 17:25 Order name: Eye Culture [facility] 06/24 13:33 Order name: XRAY Chest (1 view); Complete Time: 14:25 pm1 06/24 17:21 Order name: Renal Ultrasound-Complete [facility] 06/24 13:33 Order name: EKG; Complete Time: 13:34 pm1 06/24 17:08 Order name: Heart Healthy [facility] 06/24 13:33 Order name: Cardiac monitoring; Complete Time: 13:44 pm06/24 13:33 Order name: EKG - Nurse/Tech; Complete Time: 13:44 pm06/24 13:33 Order name: IV Saline Lock; Complete Time: 13:51 pm06/24 13:33 Order name: Labs collected and sent; Complete Time: 13:51 pm06/24 13:33 Order name: O2 Per Protocol; Complete Time: 13:44 pm1 06/24 13:33 Order name: O2 Sat Monitoring; Complete Time: 13:44 pm06/24 16:04 Order name: Vital Signs; Complete Time: 16:41 pm1 EC:45 Rate is 116 beats/min. Rhythm is regular, Sinus tachycardia. QRS [place] is Normal. MT pm1 interval is normal. QRS interval is normal. QT interval is normal. No Q waves. T waves are Normal. No ST changes noted. Clinical impression: Sinus tachycardia, possible left atrial enlargement, abnormal EKG. Administered Medications: 13:56 Drug: NS 0.9% IV 1000 ml Route: IV; Rate: 1000 ml; Site: left antecubital; iw 16:00 Follow up: IV Status: Completed infusion; IV Intake: 1000ml db 15:15 Drug: NS 0.9% IV 1000 ml Route: IV; Rate: 1000 ml; Site: left forearm; db 17:00 Follow up: Response: No adverse reaction; IV Status: Completed infusion; IV Intake: db 1000ml 16:55 CANCELLED (Physician Discretion): Tobramycin Ophthalmic Drops (0.3 %) 2 drops pm1 Ophthalmic once; Bilateral 17:00 Drug: Tobramycin Ophthalmic Ointment (0.3 %) 0.5 inches Route: Ophthalmic; Site: both db eyes; Disposition: 17:10 Co-signature as Attending Physician, Tahir VITAL was immediately available on-site ms3 in the Emergency Department for consultation in the care of the patient. Disposition Summary: 06/24/23 16:27 Hospitalization Ordered Hospitalization Status: Inpatient Admission pm1 Provider: Fercho Centeno pm1 Location: Telemetry/MedSur (Inpatient) pm1 Condition: Stable pm1 Problem: new pm1 Symptoms: have improved pm1 Bed/Room Type: Standard 1 Room Assignment: 211(06/24/23 19:09) Diagnosis - Dehydration pm1 - Acute kidney injury pm1 - Other stimulant abuse - methamphetamine abuse pm1 - Unspecified acute conjunctivitis, bilateral pm1 - Hyperglycemia, unspecified pm1 Forms: - Medication Reconciliation Form pm1 - SBAR form pm1 Signatures: Dispatcher [employer] EDMS Ximena Givens RN RN kl Williams, Irene, RN RN iw Marinas, Patrick, VALDEZ ROLL UP GUIDER OPERATOR pm1 Tahir Camilo DO DO ms3 Maria Luisa Trujillo MD MD sp3 Antonia Orta RN RN db Corrections: (The following items were deleted from the chart) 16:55 16:22 Tobramycin Ophthalmic Drops (0.3 %) 2 drops Ophthalmic once; Bilateral ordered. pm1 pm1 19:09 16:27 pm1 pavel
--- NOTE | 2023-06-24 16:27 | ER ---
Nurse's Notes [facility] Name: Elaine Rowland Age: 52 yrs Sex: Female : 1970 Arrival Date: 06/24/2023 Time: 13:23 Bed 19 Private MD: Diagnosis: Dehydration;Acute kidney injury;Other stimulant abuse-methamphetamine abuse;Unspecified acute conjunctivitis, bilateral;Hyperglycemia, unspecified Presentation: 06/24 13:28 Chief complaint: EMS states: were toned out for pt thinking she was having heart iw attack, on scene pt c/o diff breathing, said she has anxiety, HR in 130's , jesse eye redness, itching, drainage , has not been sleeping and eating , hx of drug use but quit 4 months ago , quit ETOH 2 months ago. Coronavirus screen: At this time, the client does not indicate any symptoms associated with coronavirus-19. Ebola Screen: Patient negative for fever greater than or equal to 101.5 degrees Fahrenheit, and additional compatible Ebola Virus Disease symptoms Patient denies exposure to infectious person. Patient denies travel to an Ebola-affected area in the 21 days before illness onset. Risk Assessment: Do you want to hurt yourself or someone else?. Onset of symptoms was June 24, 2023. 13:28 Method Of Arrival: EMS: [facility] iw 13:28 Acuity: SHAINA 3 iw 13:31 Initial Sepsis Screen: Does the patient meet any 2 criteria? No. Patient's initial iw sepsis screen is negative. Does the patient have a suspected source of infection? No. Patient's initial sepsis screen is negative. Triage Assessment: 19:10 General: Appears uncomfortable, Behavior is anxious. Neuro: Level of Consciousness is ha1 awake, alert, obeys commands, Oriented to person, place, time, situation. Respiratory: Reports shortness of breath Airway is patent Respiratory effort is even, unlabored, Respiratory pattern is regular, symmetrical. Respiratory: Onset: The symptoms/episode began/occurred gradually, the patient has mild shortness of breath. Musculoskeletal: Circulation, motion, and sensation intact. Range of motion: intact in all extremities. Historical: - Allergies: 13:31 NKDA; iw - PMHx: 13:31 abd hernia; acid reflux; Anxiety; COPD; Diabetes - NIDDM; Hyperlipidemia; Hypertensive iw disorder; - Social history:: Smoking status: Patient/guardian denies using tobacco, Stopped _ months ago 1. Screenin:00 [facility] ED Fall Risk Assessment (Adult) History of falling in the last 3 months, db including since admission Yes- single mechanical fall (1 pt) Confusion or Disorientation Yes (5 pts) Intoxicated or Sedated Yes (3 pts) Impaired Gait No (0 pts) Mobility Assist Device Used No (0 pt) Altered Elimination No (0 pt) Score/Fall Risk Level 3 or more points = High Risk Oriented to surroundings, Maintained a safe environment. Abuse screen: Denies threats or abuse. Denies injuries from another. Nutritional screening: No deficits noted. Tuberculosis screening: No symptoms or risk factors identified. Assessment: 13:57 General: Appears unkempt, Behavior is agitated, anxious, restless. Pain: Complains of iw pain in all over Pain currently is 10 out of 10 on a pain scale. Neuro: Level of Consciousness is awake, alert, obeys commands, Oriented to person, place, time, situation, Moves all extremities. Full function. Cardiovascular: Rhythm is sinus tachycardia. Respiratory: Airway is patent Respiratory effort is even, unlabored, Breath sounds are clear bilaterally. GI: Abdomen is flat, Abd is soft and non tender X 4 quads. Derm: Skin is intact, is healthy with good turgor. Musculoskeletal: Range of motion: intact in all extremities. 14:30 Reassessment: Patient appears in no apparent distress at this time. Patient and/or db family updated on plan of care and expected duration. Pain level reassessed. Patient is alert, oriented x 3, equal unlabored respirations, skin warm/dry/pink. General: Behavior is agitated. 15:30 Reassessment: Patient appears in no apparent distress at this time. Patient and/or db family updated on plan of care and expected duration. Pain level reassessed. General: Appears uncomfortable. 16:37 Reassessment: Patient appears in no apparent distress at this time. Patient and/or db family updated on plan of care and expected duration. Pain level reassessed. Patient is alert, oriented x 3, equal unlabored respirations, skin warm/dry/pink. Reassessment: patient is sleeping. 17:01 Reassessment: Patient appears in no apparent distress at this time. SEE MAR FOR EYE db OINTMENT MEDICATION ADMINISTRATION. PATIENT NOW SITTING IN ROOM CRYING AND TALKING TO SELF. 19:15 General: Appears uncomfortable, Behavior is agitated, anxious. Pain: Complains of pain ha1 in EROUND EYES. Neuro: Level of Consciousness is awake, alert, obeys commands, Oriented to person, place, Moves all extremities. Full function. Cardiovascular: Capillary refill < 3 seconds. Cardiovascular: Heart tones S1 S2 present. :. EENT: Eyes redness around the eyes. Derm: Skin is healthy with good turgor, has lesions on around eyes. Musculoskeletal: Circulation, motion, and sensation intact. Vital Signs: 13:31 BP 161 / 102; Pulse 122; Resp 19; Temp 98.3; Pulse Ox 100% on R/A; Weight 86.18 kg; iw Height 5 ft. 2 in. ; Pain 10/10; 14:00 BP 152 / 79; Pulse 109; Resp 18; Pulse Ox 98% ; db 16:19 BP 193 / 89; Pulse 96; Resp 18; Pulse Ox 100% on R/A; db 19:15 BP 137 / 80; Pulse 98; Resp 20; Pulse Ox 98% on R/A; ha1 13:31 Body Mass Index 34.75 (86.18 kg, 157.48 cm) iw 13:31 Pain Scale: Adult iw ED Course: 13:28 Patient arrived in ED. iw 13:29 Maria Luisa Trujillo MD is Attending Physician. sp3 13:31 Triage completed. iw 13:32 Shelton Vidal NP is PHCP. pm1 13:32 Tahir Camilo DO is Attending Physician. pm1 13:32 Arm band placed on. iw 13:51 Initial lab(s) drawn, by me, sent to lab. Inserted saline lock: 20 gauge in left iw antecubital area, using aseptic technique. Blood collected. 14:06 XRAY Chest (1 view) In Process Unspecified. EDMS 15:16 Antonia Orta, NADIA is Primary Nurse. db 16:25 Fercho Centeno MD is Hospitalizing Provider. pm1 16:40 Patient has correct armband on for positive identification. Bed in low position. Side db rails up X 1. 19:40 No provider procedures requiring assistance completed. Patient admitted, IV remains in ha1 place. 19:41 Provided Education on: need for admission . ha1 Administered Medications: 13:56 Drug: NS 0.9% IV 1000 ml Route: IV; Rate: 1000 ml; Site: left antecubital; iw 16:00 Follow up: IV Status: Completed infusion; IV Intake: 1000ml db 15:15 Drug: NS 0.9% IV 1000 ml Route: IV; Rate: 1000 ml; Site: left forearm; db 17:00 Follow up: Response: No adverse reaction; IV Status: Completed infusion; IV Intake: db 1000ml 16:55 CANCELLED (Physician Discretion): Tobramycin Ophthalmic Drops (0.3 %) 2 drops pm1 Ophthalmic once; Bilateral 17:00 Drug: Tobramycin Ophthalmic Ointment (0.3 %) 0.5 inches Route: Ophthalmic; Site: both db eyes; Medication: 13:58 VIS not applicable for this client. iw Intake: 16:00 IV: 1000ml; Total: 1000ml. db 17:00 IV: 1000ml; Total: 2000ml. db Outcome: 16:27 Decision to Hospitalize by Provider. pm1 19:40 Admitted to Med/surg accompanied by tech, via wheelchair, room 211, with chart, Report ha1 called to NADIA [place] 19:40 Condition: stable 20:13 Patient left the ED. ha1 Signatures: Dispatcher [employer] EDMS Samra Jean-Baptiste RN RN Shelton Vidal, VALDEZ SUPERVISOR PUMPING STATION pm1 Maria Luisa Trujillo MD MD sp3 Stephanie Easton RN RN ha1 Antonia Orta RN RN db
[2023-06-24] MEDS ORDERED: ONDANSETRON 4 MG/2 ML VIAL IV PRN (16:58)
[2023-06-24] MEDS ORDERED: MORPHINE 2 MG/ML SYR IV PRN (16:58)
[2023-06-24] MEDS ORDERED: ALBUTEROL 2.5 MG/3 ML NEB SOL NEB PRN (16:58)
[2023-06-24] MEDS ORDERED: IPRATROPIUM BROM 0.5MG/2.5ML NEB PRN (16:58)
[2023-06-24] MEDS ORDERED: TOBRAMYCIN SULF 0.3% OPTH OINT ONE (17:04)
[2023-06-24] MEDS ORDERED: TETRACAINE HCL 0.5% 4ML OPTH ONE (17:42)
[2023-06-24] MEDS ORDERED: FLUORESCEIN SODIUM 1 MG/WRAP ONE (17:54)
[2023-06-24] MEDS: METHYLPREDNISOLONE 40 MG INJ IV SCH (18:00)
[2023-06-24 18:43] LABS: Barbiturates NEGATIVE (NEGATIVE); Benzodiazepines NEGATIVE (NEGATIVE); Cocaine POSITIVE (NEGATIVE); METHAMPHETAM POSITIVE (NEGATIVE); Methadone NEGATIVE (NEGATIVE); Opiates NEGATIVE (NEGATIVE); Phencyclidine NEGATIVE (NEGATIVE); THC Cannibis NEGATIVE (NEGATIVE)
[2023-06-24] MEDS: ACETAMINOPHEN 500 MG TAB PO PRN (20:26)
[2023-06-24] MEDS: NA CHLORIDE 0.9% 1,000 ML IV SCH (20:28)
[2023-06-24 22:17] VITALS: BMI 34.7
[2023-06-25] MEDS: METHYLPREDNISOLONE 40 MG INJ IV SCH ×4 (00:06→17:09)
[2023-06-25] MEDS: PIPER TAZO 3.375 GM in NA CHLORIDE 0.9% 100 ML IV SCH ×3 (00:07→17:09)
[2023-06-25] MEDS: NA CHLORIDE 0.9% 1,000 ML IV SCH ×2 (06:20→19:40)
--- NOTE | 2023-06-25 07:24 | RAD REPORT ---
EXAM DESCRIPTION: US - Renal Ultrasound-Complete - 06/25/2023 12:05 am CLINICAL HISTORY: RIO COMPARISON: Abdomen Pelvis W Contrast dated 04/07/2019 FINDINGS: Both kidneys are normal in size, shape and echotexture. The right kidney measures 10.2 cm. No hydronephrosis, focal mass or perinephric fluid. The left kidney measures 11.3 cm. No hydronephrosis, focal mass or perinephric fluid. The urinary bladder is incompletely distended without gross abnormality seen. IMPRESSION: Unremarkable renal sonogram. No evidence of hydronephrosis.
[2023-06-25] MEDS: ACETAMINOPHEN 500 MG TAB PO PRN ×2 (11:42→17:43)
[2023-06-25 12:43] LABS: Absolute Lymphocytes (CBC) 0.7 K/uL (0.7-4.9); Hematocrit 40.6 % (36.0-45.0); Lymphocytes % 10.7 % (15.3-44.8); MCV 89.7 fL (80-100); MPV 8.5 fL (7.6-11.3); RBC Red Blood Cell Count 4.52 M/uL (3.86-4.86)
[2023-06-25 13:00] LABS: Albumin 3.7 g/dL (3.4-5.0); Bilirubin Total 0.9 mg/dL (0.2-1.0); Potassium 3.8 mEq/L (3.5-5.1)
--- NOTE | 2023-06-25 13:26 | EKG ---
Test Date: 2023-06-24 Test Time: 13:39:24 Fabric Sourcer: GAIL MEASUREMENT RESULTS: Intervals: Rate: 116 TX: 146 QRSD: 78 QT: 354 QTc: 492 [place]: P: 62 TX: 146 QRS: -21 T: 42 INTERPRETIVE STATEMENTS: Sinus tachycardia Possible Left atrial enlargement Septal infarct, age undetermined Abnormal ECG Compared to ECG 02/19/2023 17:53:34 Myocardial infarct finding now present Sinus rhythm no longer present Fusion complex(es) no longer present ST (T wave) deviation no longer present Electronically Signed On 06-25-23 13:24:41 CDT by Ruben Quesada
[2023-06-26] MEDS: ACETAMINOPHEN 500 MG TAB PO PRN ×2 (00:21→05:34)
[2023-06-26] MEDS: PIPER TAZO 3.375 GM in NA CHLORIDE 0.9% 100 ML IV SCH ×2 (00:21→08:24)
[2023-06-26] MEDS: METHYLPREDNISOLONE 40 MG INJ IV SCH ×2 (00:23→05:01)
[2023-06-26] MEDS: NA CHLORIDE 0.9% 1,000 ML IV SCH (00:31)
[2023-06-26 04:58] VITALS: O2SAT 98
[2023-06-26 08:42] VITALS: BP 140/78; TEMP 96.9
== END 2023-06-26 09:34 | disposition left against medical advice (07) | DRG 684 ==
LOC: ER 13:23 → ERHOLD 17:02 → 2ND 19:12
PROVIDERS: ADMIT Hospitalist; ATTEND Hospitalist
DX: N17.9 Acute kidney failure, unspecified (principal); E86.0 Dehydration; J44.9 Chronic obstructive pulmonary disease, unspecified; K21.9 Gastro-esophageal reflux disease without esophagitis; E78.5 Hyperlipidemia, unspecified; E11.65 Type 2 diabetes mellitus with hyperglycemia; H10.33 Unspecified acute conjunctivitis, bilateral; F15.10 Other stimulant abuse, uncomplicated; Z87.891 Personal history of nicotine dependence; Z53.29 Procedure and treatment not carried out because of patient's decision for other reasons; Z59.00 Homelessness unspecified
CPT/HCPCS: 36415; 71045; 76770; 80048; 80053; 80076; 80307; 82077; 82947; 84484; 85025; 85379; 87070; 87077; 87186; 93005; 96360; 96361; 99285; J2543; J2920; J7030

== ENCOUNTER 2023-07-17 15:51 | Emergency (ER) | payer OTHER ==
--- OUTSIDE RECORDS SUMMARY | 2023-07-17 15:57 | XMS REPORT | Continuity of Care Document ---
:1970 Author Organization [facility] t Address [address] [place] [address] [place] [id number] Care Team Providers Name Role Phone [facility] Primary Care P hysician Unavailable MIREYA CENTENO Attending Clinician Unavailable Lab, [facility] Attending Clinician Unavailable Mireya Centeno MD Attending Clinician Doctor Unassigned, [place] Attending Clinician Unavailable CHARLETTE HOLLOWAY Attending Clinician Unavailable Charlette Hololway DO Attending Clinician JONATHAN BAEZ Attending Clinician Unavailable Jonathan Baez MD Attending Clinician JENNY BURCH Attending Clinician Unavailable Jenny Burch MD Attending Clinician KOBE VALENCIA Attending Clinician Unavailable Kobe Valencia MD Attending Clinician Jane KYLE Attending Clinician Unavailable Jane Domínguez Attending Clinician XIOMARA HERNANDEZ Attending Clinician Unavailable Xiomara Willams Attending Clinician ARGELIA CARSON Attending Clinician Unavailable Argelia Alvarez Attending Clinician JC MIRZA Attending Clinician Unavailable Jc Krishnamurthy Attending Clinician MINH HARTMAN Attending Clinician Unavailable Minh Hartman MD Attending Clinician MIREYA CENTENO Admitting Clinician Unavailable CHARLETTE HOLLOWAY Admitting Clinician Unavailable JONATHAN BAEZ Admitting Clinician Unavailable JENNY BURCH Admitting Clinician Unavailable Jane KYLE Admitting Clinician Unavailable ARGELIA CARSON Admitting Clinician Unavailable JC MIRZA Admitting Clinician Unavailable MINH HARTMAN Admitting Clinician Unavailable Payers Payer Name Policy Type Policy Number Effective Date Expiration Date Jessica DIANA [id number] 2022 2023 HOSP DIST 00:00:00 00:00:00 ICF [id number] 2021 2022 00:00:00 00:00:00 [employer] [employer] [id number] 2015 CARE 00:00:00 [place] [employer]. I H [id number] 2015 C 00:00:00 Problems Condition Condition Condition Status Onset Resolution Last Treating Co mments Source Name Details Category Date Date Treatment Clinician Date Nausea and Nausea and Disease Active U nivers vomiting vomiting 2- ity of 00:00: [place] 00 Medical Branch Bloating Bloating Disease Active Unive rs 2-23 ity of 00:00: [place] 00 Medical Branch Carpal Carpal Disease Active Univers tunnel tunnel 2-05 ity of syndrome syndrome 00:00: [place] of right of right 00 Medica l wrist wrist Branch S/P left S/P left Disease Active Unive rs knee knee 1-08 [place] of arthroscop [place] Essential Essential Disease Active Uni vers hypertensi hypertensi 06-27 it y of on on 00:00: [place] 00 Medical Branch Type 2 Type 2 Disease Active Univers diabetes diabetes 7 ity of mellitus mellitus 00:00: [place] without without 00 Medical complicati complicati Br anch on on Tobacco Tobacco Disease Active Univers abuse abuse 06-27 ity of 00:00: [place] 00 Medical Branch Allergies, Adverse Reactions, Alerts Allergy Allergy Status Severity Reaction(s) Onset Inactive Treating Comm ents Source Name Type Date Date Clinician IBUPROFE DRUG Active Anxiety 2014-11 Univers N INGREDI 0-27 ity of 00:00: [place] 00 [facility] Ibuprofe Propensi Active Anxiety 2014- Pt has Unive rs n ty to 0-27 been ity of adverse 00:00: taking [place] reaction 00 advil at [facility] without any issues Social History Social Habit Start Date Stop Date Quantity Comments Source History of tobacco Cigarette Smoker University of use [facility] Exposure to 2023-01-11 2023-01-21 Not sure University SARS-CoV-2 (event) 00:00:00 10:29:00 [facility] Cigarettes smoked 2023-01-21 2023-01-21 Univers ity of current (pack per 00:00:00 00:00:00 [place] ) - Reported Branch Tobacco use and 2023-01-21 2023-01-21 Smokeless Universit y of exposure 00:00:00 00:00:00 tobacco non-user [facility] Alcohol intake 2023-01-21 2023-01-21 0 /d University of 00:00:00 00:00:00 [facility] Tobacco Comment 2023-01-21 2023-01-21 Quit smoking Univers ity of 00:00:00 00:00:00 over one month [facility] Sex Assigned At [birth year] Universit y of 00:00:00 00:00:00 [facility] Smoking Status Start Date Stop Date Source Ex-smoker 2023-01-21 00:00:00 2023-01-21 00:00:00 Universi ty of [facility] Medications Ordered Filled Start Stop Current Ordering Indication Dosage Frequency Signature Comments Components Source Medication Medication Date Date Medication? Clinician (SIG) Name Name traMADOL Yes 50mg Take 50 mg Uni vers (ULTRAM) 50 2-23 by mouth ity of mg tablet 10:43: every 12 [place] 26 (twelve) Medical hours as Branch needed for Pain unrelieved by non-narcot ic analgesics . CANAGLIFLOZ Yes 1000mg Take 1,000 Univers IN 2-23 mg by ity of (INVOKANA 10:43: mouth 2 [place] ORAL) 26 (two) Medical times Branch daily. traMADOL Yes 50mg Take 50 mg Uni vers (ULTRAM) 50 2-23 by mouth ity of mg tablet 10:43: every 12 [place] 26 (twelve) Medical hours as Branch needed for Pain unrelieved by non-narcot ic analgesics . CANAGLIFLOZ 3-0 Yes 1000mg Take 1,000 Univers IN 2-23 mg by ity of (INVOKANA 10:43: mouth 2 [place] ORAL) 26 (two) Medical times Branch daily. traMADOL 2022-0 Yes 50mg Take 50 mg Uni vers (ULTRAM) 50 2-23 by mouth ity of mg tablet 10:43: every 12 [place] 26 (twelve) Medical hours as Branch needed for Pain unrelieved by non-narcot ic analgesics . CANAGLIFLOZ 2022-0 Yes 1000mg Take 1,000 Univers IN 2-23 mg by ity of (INVOKANA 10:43: mouth 2 [place] ORAL) 26 (two) Medical times Branch daily. pantoprazol 2022-0 Yes [id number] 40mg Take 1 Univers e 40 mg EC 2-23 tablet by ity of tablet 00:00: mouth in [place] [address] the Medical morning Branch and 1 tablet in the evening. pantoprazol 2022-0 Yes [id number] 40mg Take 1 Univers e 40 mg EC 2-23 tablet by ity of tablet 00:00: mouth in [place] 00 the Medical morning Branch and 1 tablet in the evening. pantoprazol 2023-0 Yes [id number] 40mg Take 1 Univers e 40 mg EC 2-23 tablet by ity of tablet 00:00: mouth in [place] [address] the Medical morning Branch and 1 tablet in the evening. insulin 2022- No 10U 10 Units, Univ ers regular 01-04 Slow IV ity of human 03:30: 03:03 Push, [place] (HUMULIN R) 00 :00 ONCE, 1 Medic al injection dose, On Branch 10 Units 01/03/23 at 2130, Routine
Indicatio n for insulin: Hyperglyce caleb iopamidol 2022- No [id number] 98mL 98 mL, Univers (ISOVUE 01-04 Intravenou ity o f 370-500 mL) 03:00: 03:00 s, ONCE, 1 [place] injection 00 :00 dose, On Medica l 98 mL 01/03/23 Branch at 2100, Routine NaCl 0.9% 2022- No 1000mL at 999 Uni vers (NS) bolus 2-06 02-06 mL/hr, ity of infusion 02:45: 03:56 1,000 mL, Sai as 1,000 mL 00 :00 IV Medical Infusion, Branch ONCE, 1 dose, On 01/03/23 at 2045, PATRIZIA ipratropium 2022- No 3mL 3 mL, Univ ers -albuteroL 12-11 Inhalation it y of (DUONEB) 01:30: 00:44 , ONCE, 1 [place]ia as 0.5 mg-3 00 :00 dose, On Medical mg(2.5 mg [place] Branch base)/3 mL 12/10/22 at nebulizer 1930, PATRIZIA solution 3 mL levoFLOXaci 2022- No 750mg 750 mg, U nivers n 12-11 Oral, ONCE ity of (LEVAQUIN) 01:15: 00:46 NOW, 1 [place] tablet 750 00 :00 dose, On Medic al mg [place] Branch 12/10/22 at 1915, PATRIZIA
Re ason for Anti-Infec tive: Documented Infection< br>Documen jesus Infection Site: Respirator y
Durat ion of Therapy: Other (see Comments) methylpredn 2022- No 125mg 125 mg, U nivers isolone sod 12-10 Slow IV ity of succ 23:45: 23:12 Push, ONCE [place] (SOLU-MEDRO 00 :00 NOW, 1 Medica l L) dose, On Branch injection Mar[place]y 125 mg 12/10/22 at 1745, PATRIZIA ipratropium 0 2022- No 3mL 3 mL, Univ ers -albuteroL 12-10 Inhalation it y of (DUONEB) 23:45: 23:20 , ONCE, 1 [place] as 0.5 mg-3 00 :00 dose, On Medical mg(2.5 mg [place] Branch base)/3 mL 12/10/22 at nebulizer 1745, PATRIZIA solution 3 mL levoFLOXaci 2022-0 Yes [id number] 500mg Take 1 Univers n 12-10 tablet by ity of (LEVAQUIN) 00:00: mouth [place] 500 mg 00 every 24 Medical tablet (twenty-fo Branch ur) hours. predniSONE 3-0 Yes [id number] 60mg Take 3 U nivers 20 mg 1-12 tablets by ity of tablet 00:00: mouth [place] 00 every Medical morning. Branch albuterol 2022-0 Yes [id number] 2{puff} Inhale 2 Univers 90 1-12 Puffs ity of mcg/actuati 00:00: every 6 Sai as on inhaler 00 (six) Medical hours as Branch needed for Wheezing or Shortness of Breath. dextrometho 2023-0 Yes [id number] 10mL Take 10 mL Univers rphan-guaif 1-12 by mouth ity of enesin 00:00: every 6 [place] 10-100 mg/5 00 (six) Medical mL solution hours as Bran ch needed for Cough. levoFLOXaci 2022-0 Yes [id number] 500mg Take 1 Univers n 1-12 tablet by ity of (LEVAQUIN) 00:00: mouth [place] 500 mg 00 every 24 Medical tablet (twenty-fo Branch ur) hours. predniSONE 3-0 Yes [id number] 60mg Take 3 U nivers 20 mg 1-12 tablets by ity of tablet 00:00: mouth [place] 00 every Medical morning. Branch albuterol 2022-0 Yes [id number] 2{puff} Inhale 2 Univers 90 1-12 Puffs ity of mcg/actuati 00:00: every 6 Sai as on inhaler 00 (six) Medical hours as Branch needed for Wheezing or Shortness of Breath. dextrometho 3-0 Yes [id number] 10mL Take 10 mL Univers rphan-guaif 1-12 by mouth ity of enesin 00:00: every 6 [place] 10-100 mg/5 00 (six) Medical mL solution hours as Bran ch needed for Cough. levoFLOXaci 3-0 Yes [id number] 500mg Take 1 Univers n 1-12 tablet by ity of (LEVAQUIN) 00:00: mouth [place] 500 mg 00 every 24 Medical tablet (twenty-fo Branch ur) hours. predniSONE 3-0 Yes [id number] 60mg Take 3 U nivers 20 mg 1-12 tablets by ity of tablet 00:00: mouth [place] 00 every Medical morning. Branch albuterol 2022-0 Yes [id number] 2{puff} Inhale 2 Univers 90 1-12 Puffs ity of mcg/actuati 00:00: every 6 [place] as on inhaler 00 (six) Medical hours as Branch needed for Wheezing or Shortness of Breath. dextrometho 3-0 Yes [id number] 10mL Take 10 mL Univers rphan-guaif 1-12 by mouth ity of enesin 00:00: every 6 [place] 10-100 mg/5 00 (six) Medical mL solution hours as Bran ch needed for Cough. levoFLOXaci 2022-0 Yes [id number] 500mg Take 1 Univers n 1-12 tablet by ity of (LEVAQUIN) 00:00: mouth [place] 500 mg 00 every 24 Medical tablet (twenty-fo Branch ur) hours. predniSONE 2022-0 Yes [id number] 60mg Take 3 U nivers 20 mg 1-12 tablets by ity of tablet 00:00: mouth [place] 00 every Medical morning. Branch albuterol 2022-0 Yes [id number] 2{puff} Inhale 2 Univers 90 1-12 Puffs ity of mcg/actuati 00:00: every 6 [place]ai as on inhaler 00 (six) Medical hours as Branch needed for Wheezing or Shortness of Breath. dextrometho 2022-0 Yes [id number] 10mL Take 10 mL Univers rphan-guaif 1-12 by mouth ity of enesin 00:00: every 6 [place] 10-100 mg/5 00 (six) Medical mL solution hours as Bran ch needed for Cough. levoFLOXaci 3-0 Yes [id number] 500mg Take 1 Univers n 1-12 tablet by ity of (LEVAQUIN) 00:00: mouth [place] 500 mg 00 every 24 Medical tablet (twenty-fo Branch ur) hours. predniSONE 3-0 Yes [id number] 60mg Take 3 U nivers 20 mg 1-12 tablets by ity of tablet 00:00: mouth [place] 00 every Medical morning. Branch albuterol 2022-0 Yes [id number] 2{puff} Inhale 2 Univers 90 1-12 Puffs ity of mcg/actuati 00:00: every 6 [place] as on inhaler 00 (six) Medical hours as Branch needed for Wheezing or Shortness of Breath. dextrometho 3-0 Yes [id number] 10mL Take 10 mL Univers rphan-guaif 1-12 by mouth ity of enesin 00:00: every 6 [place] 10-100 mg/5 00 (six) Medical mL solution hours as Bran ch needed for Cough. levoFLOXaci 0 Yes [id number] 500mg Take 1 Univers n 1-12 tablet by ity of (LEVAQUIN) 00:00: mouth [place] 500 mg 00 every 24 Medical tablet (twenty-fo Branch ur) hours. predniSONE 0 Yes [id number] 60mg Take 3 U nivers 20 mg 1-12 tablets by ity of tablet 00:00: mouth [place] 00 every Medical morning. Branch albuterol 0 Yes [id number] 2{puff} Inhale 2 Univers 90 1-12 Puffs ity of mcg/actuati 00:00: every 6 [place]ai as on inhaler 00 (six) Medical hours as Branch needed for Wheezing or Shortness of Breath. dextrometho Yes [id number] 10mL Take 10 mL Univers rphan-guaif 1-12 by mouth ity of enesin 00:00: every 6 [place] 10-100 mg/5 00 (six) Medical mL solution hours as Bran ch needed for Cough. FENTanyl PF 2022- No 100ug 100 mcg, Univers (SUBLIMAZE 11-30 Slow IV ity o f (PF)) 13:00: 11:59 Push, [place] injection 00 :00 ONCE, 1 Medical 100 mcg dose, On Branch Wed11/30/22 at 0700, PATRIZIA iopamidol 2022- No [id number] 70mL 70 mL, U nivers (ISOVUE 11-30 Intravenou ity o f 370-500 mL) 11:45: 11:45 s, ONCE, 1 [place] injection 00 :00 dose, On Medica l 70 mL Wed11/30/22 Branch at 0545, Routine FENTanyl PF 2022- No 50ug 50 mcg, Un shawn (SUBLIMAZE 11-30 Slow IV ity o f (PF)) 11:00: 10:03 Push, [place] injection 00 :00 ONCE, 1 Medical 50 mcg dose, On Branch Wed11/30/22 at 0500, PATRIZIA NaCl 0.9% 2022- No 1000mL at 999 Uni vers (NS) bolus 1-02 01-02 mL/hr, ity of infusion 11:00: 11:00 1,000 mL, Sai as 1,000 mL 00 :00 IV Medical Infusion, Branch ONCE, 1 dose, On Wed11/30/22 at 0500, STAT glipiZIDE 3-0 Yes [id number] 2.5mg Take 1 Univers XL 2.5 mg 1-02 tablet by ity o f 24 hr 00:00: mouth [place] tablet 00 daily with Medical breakfast. Branch ondansetron 3-0 Yes [id number] 4mg Take 1 Univers 4 mg 1-02 tablet by ity of disintegrat 00:00: mouth [place] ing tablet 00 every 8 Medica l (eight) Branch hours as needed for Nausea and Vomiting (N/V). metFORMIN 2022-0 Yes [id number] 1000mg Take 1 Univers 1,000 mg 1-02 tablet by ity of tablet 00:00: mouth in [place] 00 the Medical morning Branch and 1 tablet in the evening. Take with meals. glipiZIDE 3-0 Yes [id number] 2.5mg Take 1 Univers XL 2.5 mg 1-02 tablet by ity o f 24 hr 00:00: mouth [place] tablet 00 daily with Medical breakfast. Branch ondansetron 3-0 Yes [id number] 4mg Take 1 Univers 4 mg 1-02 tablet by ity of disintegrat 00:00: mouth [place] ing tablet 00 every 8 Medica l (eight) Branch hours as needed for Nausea and Vomiting (N/V). metFORMIN 2022-0 Yes [id number] 1000mg Take 1 Univers 1,000 mg 1-02 tablet by ity of tablet 00:00: mouth in [place] 00 the Medical morning Branch and 1 tablet in the evening. Take with meals. glipiZIDE 2023-0 Yes [id number] 2.5mg Take 1 Univers XL 2.5 mg 1-02 tablet by ity o f 24 hr 00:00: mouth [place] tablet 00 daily with Medical breakfast. Branch ondansetron 3-0 Yes [id number] 4mg Take 1 Univers 4 mg 1-02 tablet by ity of disintegrat 00:00: mouth [place] ing tablet 00 every 8 Medica l (eight) Branch hours as needed for Nausea and Vomiting (N/V). metFORMIN 3-0 Yes [id number] 1000mg Take 1 Univers 1,000 mg 1-02 tablet by ity of tablet 00:00: mouth in [place] 00 the Medical morning Branch and 1 tablet in the evening. Take with meals. glipiZIDE 2023-0 Yes [id number] 2.5mg Take 1 Univers XL 2.5 mg 1-02 tablet by ity o f 24 hr 00:00: mouth [place] tablet 00 daily with Medical breakfast. Branch ondansetron 2023-0 Yes [id number] 4mg Take 1 Univers 4 mg 1-02 tablet by ity of disintegrat 00:00: mouth [place] ing tablet 00 every 8 Medica l (eight) Branch hours as needed for Nausea and Vomiting (N/V). metFORMIN 3-0 Yes [id number] 1000mg Take 1 Univers 1,000 mg 1-02 tablet by ity of tablet 00:00: mouth in [place] 00 the Medical morning Branch and 1 tablet in the evening. Take with meals. glipiZIDE 2023-0 Yes [id number] 2.5mg Take 1 Univers XL 2.5 mg 1-02 tablet by ity o f 24 hr 00:00: mouth [place] tablet 00 daily with Medical breakfast. Branch ondansetron 3-0 Yes [id number] 4mg Take 1 Univers 4 mg 1-02 tablet by ity of disintegrat 00:00: mouth [place] ing tablet 00 every 8 Medica l (eight) Branch hours as needed for Nausea and Vomiting (N/V). metFORMIN 3-0 Yes [id number] 1000mg Take 1 Univers 1,000 mg 1-02 tablet by ity of tablet 00:00: mouth in [place] 00 the Medical morning Branch and 1 tablet in the evening. Take with meals. glipiZIDE 2023-0 Yes [id number] 2.5mg Take 1 Univers XL 2.5 mg 1-02 tablet by ity o f 24 hr 00:00: mouth [place] tablet 00 daily with Medical breakfast. Branch ondansetron 2023-0 Yes [id number] 4mg Take 1 Univers 4 mg 1-02 tablet by ity of disintegrat 00:00: mouth [place] ing tablet 00 every 8 Medica l (eight) Branch hours as needed for Nausea and Vomiting (N/V). metFORMIN 2023-0 Yes [id number] 1000mg Take 1 Univers 1,000 mg 1-02 tablet by ity of tablet 00:00: mouth in [place] 00 the Medical morning Branch and 1 tablet in the evening. Take with meals. glipiZIDE Yes [id number] 2.5mg Take 1 Univers XL 2.5 mg 1-02 tablet by ity o f 24 hr 00:00: mouth [place] tablet 00 daily with Medical breakfast. Branch ondansetron Yes [id number] 4mg Take 1 Univers 4 mg 1-02 tablet by ity of disintegrat 00:00: mouth [place] ing tablet 00 every 8 Medica l (eight) Branch hours as needed for Nausea and Vomiting (N/V). metFORMIN Yes [id number] 1000mg Take 1 Univers 1,000 mg 1-02 tablet by ity of tablet 00:00: mouth in [place] 00 the Medical morning Branch and 1 tablet in the evening. Take with meals. acetaminoph 2022- No [id number] 1{tbl} Take 1 U nivers en-codeine 11-30 01-10 tablet by ity of 300-30 mg 00:00: 05:59 mouth [place] tablet 00 :00 every 4 Medical (four) Branch hours as needed for Pain (scale 1-3) for up to 7 days. Indication s: acute pain insulin 2021-11 No 10U 10 Units, Univ ers regular 01-05 Slow IV ity of human 02:00: 01:15 Push, [place] (HUMULIN R) 00 :00 ONCE, 1 Medic al injection dose, On Branch 10 Units Wed11/03/22 at 2000, Routine
Indicatio n for insulin: Hyperglyce caleb NaCl 0.9% 2021-11- No 1000mL at 999 Uni vers (NS) bolus 01-05 mL/hr, ity of infusion 01:00: 02:30 1,000 mL, Sai as 1,000 mL 00 :00 IV Medical Infusion, Branch ONCE, 1 dose, On Wed11/03/22 at 1900, STAT canaglifloz 2021-11- No [id number] 1{tbl} Take 1 Univers in-metformi 01-04-06 tablet by it y of n 00:00: 05:59 mouth in [place] (INVOKAMET) 00 :00 the Medical 150-1,000 morning Branch mg per and 1 tablet tablet in the evening. Do all this for 30 days. canaglifloz 2021-11- No [id number] 1{tbl} Take 1 Univers in-metformi 01-04 tablet by it y of n 00:00: 05:59 mouth in [place] (INVOKAMET) 00 :00 the Medical 150-1,000 morning Branch mg per and 1 tablet tablet in the evening. Do all this for 30 days. ciprofloxac 2021-11 No 250mg 250 mg, U nivers in HCl 12-30 Oral, ity of (CIPRO) 01:45: 01:57 ONCE, 1 [place] tablet 250 00 :00 dose, On Medic al mg Wed10/28/22 at 1945, PATRIZIA
Re ason for Anti-Infec tive: Documented Infection< br>Documen jesus Infection Site: Urine
D uration of Therapy: 7 days magnesium 2021-11 2g 2 g, IV Univ ers sulfate in 12-30 Piggyback, it y of water 2 00:00: 02:33 Administer Sai as gram/50 mL 00 :00 over 60 Medica l (4 %) Minutes, Branch infusion 2 ONCE, 1 g dose, On Wed10/28/22 at 1800, Routine ciprofloxac 2021-11 Yes [id number] 500mg Take 1 Univers in HCl 500 1-30 tablet by ity of mg tablet 00:00: [place] 00 the Medical morning Branch and 1 tablet in the evening. ondansetron 2021-11 Yes [id number] 4mg Take 1 Univers 4 mg 1-30 tablet by ity of disintegrat 00:00: mouth [place] ing tablet 00 every 8 Medica l (eight) Branch hours as needed for Nausea and Vomiting (N/V). ciprofloxac 2021-11 Yes [id number] 500mg Take 1 Univers in HCl 500 1-30 tablet by ity of mg tablet 00:00: mouth [place] 00 the Medical morning Branch and 1 tablet in the evening. ondansetron 2021-11 Yes [id number] 4mg Take 1 Univers 4 mg 1-30 tablet by ity of disintegrat 00:00: mouth [place] ing tablet 00 every 8 Medica l (eight) Branch hours as needed for Nausea and Vomiting (N/V). ciprofloxac 2021-11 Yes [id number] 500mg Take 1 Univers in HCl 500 1-30 tablet by ity of mg tablet 00:00: mouth [place] 00 the Medical morning Branch and 1 tablet in the evening. ciprofloxac 2021-11 Yes [id number] 500mg Take 1 Univers in HCl 500 1-30 tablet by ity of mg tablet 00:00: mouth [place] 00 the Medical morning Branch and 1 tablet in the evening. ciprofloxac 2021-11 Yes [id number] 500mg Take 1 Univers in HCl 500 1-30 tablet by ity of mg tablet 00:00: mouth [place] 00 the Medical morning Branch and 1 tablet in the evening. ciprofloxac 2021-11 Yes [id number] 500mg Take 1 Univers in HCl 500 1-30 tablet by ity of mg tablet 00:00: mouth [place] 00 the Medical morning Branch and 1 tablet in the evening. ciprofloxac 2021-11 Yes [id number] 500mg Take 1 Univers in HCl 500 1-30 tablet by ity of mg tablet 00:00: mouth [place] 00 the Medical morning Branch and 1 tablet in the evening. ciprofloxac 2021-11 Yes [id number] 500mg Take 1 Univers in HCl 500 1-30 tablet by ity of mg tablet 00:00: mouth [place] 00 the Medical morning Branch and 1 tablet in the evening. ciprofloxac 2021-11 Yes [id number] 500mg Take 1 Univers in HCl 500 1-30 tablet by ity of mg tablet 00:00: mouth [place] 00 the Medical morning Branch and 1 tablet in the evening. ondansetron 2021-11- No [id number] 4mg Take 1 Univers 4 mg 1-30 11-30 tablet by ity of disintegrat 00:00: 00:00 [place] tablet 00 :00 every 8 Medica l (eight) Branch hours as needed for Nausea and Vomiting (N/V). acetaminoph 2021-11- No 650mg 650 mg, U nivers en 12-01 11-03 Oral, ity of (TYLENOL) 22:45: 21:59 ONCE, 1 [place] tablet 650 00 :00 dose, On Medic al mg [facility] 10/01/22 at 1745, PATRIZIA amoxicillin 2021-11- No [id number] 1{tbl} Take 1 Univers -clavulanat 12-01 11-11 tablet by it y of e 875-125 00:00: 05:59 mouth [place] mg per 00 :00 every 12 Medical tablet (twelve) Branch hours for 7 days. metFORMIN 2021-11- No 500mg 500 mg, Uni vers (GLUCOPHAGE 009-16 Oral, ity of ) tablet 01:45: 00:55 ONCE, 1 [place] 500 mg 00 :00 dose, On Medical [facility] Branch 09/15/22 at 2045, Routine ketorolac 2021-11- No 15mg 15 mg, Unive rs (TORADOL) 009-16 Slow IV ity of injection 01:30: 00:55 Push, [place] 15 mg 00 :00 ONCE, 1 Medical dose, On Branch [facility] 09/15/22 at 2030, PATRIZIA iopamidol 2021-11- No [id number] 65mL 65 mL, U nivers (ISOVUE 009-16 Intravenou ity o f 370-500 mL) 00:15: 00:15 s, ONCE, 1 [place] injection 00 :00 dose, On Medica l 65 mL [facility] 09/15/22 at 1915, Routine metFORMIN 2021-11- No [id number] 500mg Take 1 Univers 500 mg 0-18 -18 tablet by ity of tablet 00:00: 05:59 mouth in [place] 00 :00 the [facility] morning Branch and 1 tablet in the evening. Do all this for 30 days. metFORMIN 2021-11- No [id number] 500mg Take 1 Univers 500 mg 0-18 11-18 tablet by ity of tablet 00:00: 05:59 mouth in [place] 00 :00 the [facility] morning Branch and 1 tablet in the evening. Do all this for 30 days. insulin 2021- No 10U 10 Units, Univ ers regular 08-21 Subcutaneo ity o f human 02:45: 01:57 , ONCE, [place] (HUMULIN R) 00 :00 1 dose, On Me dical injection [place] Branch 10 Units 08/20/22 at 2145, Routine
Indicatio n for insulin: Hyperglyce caleb acetaminoph 2021- No 1000mg 1,000 mg, Univers en 08-21 Oral, ity of (TYLENOL) 02:00: 01:20 ONCE, 1 [place] tablet 00 :00 dose, On Medical 1,000 mg [place] Branch 08/20/22 at 2100, PATRIZIA ketorolac 2021- No 15mg 15 mg, Unive rs (TORADOL) 08-21 Slow IV ity of injection 02:00: 01:16 Push, [place] 15 mg 00 :00 ONCE, 1 Medical dose, On Branch [facility] 08/20/22 at 2100, Routine NaCl 0.9% 2021- No 1000mL at 999 Uni vers (NS) bolus 08-21 mL/hr, ity of infusion 02:00: 02:51 1,000 mL, Sai as 1,000 mL 00 :00 IV Medical Infusion, Branch ONCE, 1 dose, On [place] 08/20/22 at 2100, PATRIZIA iopamidol 2021- No [id number] 55mL 55 mL, Univers (ISOVUE 8-15 08-15 Intravenou ity o f 370-500 mL) 23:30: 23:30 s, ONCE, 1 [place] injection 00 :00 dose, On Medica l 55 mL Mon Branch 07/13/22 at 1830, Routine NaCl 0.9% 2021- No 1000mL at 999 Uni vers (NS) bolus 07-13 08-15 mL/hr, ity of infusion 22:15: 22:52 1,000 mL, Sai as 1,000 mL 00 :00 IV Medical Infusion, Branch ONCE, 1 dose, On 07/13/22 at 1715, PATRIZIA ondansetron Yes [id number] 4mg Take 1 Univers 4 mg 8-15 tablet by ity of disintegrat 00:00: mouth [place] ing tablet 00 every 8 Medica l (eight) Branch hours as needed for Nausea and Vomiting (N/V). dicyclomine Yes [id number] 20mg Take 1 Univers 20 mg 8-15 tablet by ity of tablet 00:00: mouth 4 [place] (four) Medical times Branch daily as needed for Abdominal pain. ondansetron 2022-0 Yes [id number] 4mg Take 1 Univers 4 mg 8-15 tablet by ity of disintegrat 00:00: mouth [place] ing tablet 00 every 8 Medica l (eight) Branch hours as needed for Nausea and Vomiting (N/V). dicyclomine 2022-0 Yes [id number] 20mg Take 1 [facility] 20 mg 8-15 tablet by ity of tablet 00:00: mouth 4 [place] (four) Medical times Branch daily as needed for Abdominal pain. ondansetron 2022-0 Yes [id number] 4mg Take 1 [facility] 4 mg 8-15 tablet by ity of disintegrat 00:00: mouth [place] ing tablet 00 every 8 Medica l (eight) Branch hours as needed for Nausea and Vomiting (N/V). dicyclomine 2022-0 Yes [id number] 20mg Take 1 [facility] 20 mg 8-15 tablet by ity of tablet 00:00: mouth (four) Medical times Branch daily as needed for Abdominal pain. ondansetron 2022-0 Yes [id number] 4mg Take 1 [facility] 4 mg 8-15 tablet by ity of disintegrat 00:00: mouth [place] ing tablet 00 every 8 Medica l (eight) Branch hours as needed for Nausea and Vomiting (N/V). dicyclomine 2022-0 Yes [id number] 20mg Take 1 [facility] 20 mg 8-15 tablet by ity of tablet 00:00: mouth 4 (four) Medical times Branch daily as needed for Abdominal pain. ondansetron 2022-0 Yes [id number] 4mg Take 1 [facility] 4 mg 8-15 tablet by ity of disintegrat 00:00: mouth [place] ing tablet 00 every 8 Medica l (eight) Branch hours as needed for Nausea and Vomiting (N/V). dicyclomine 2022-0 Yes [id number] 20mg Take 1 [facility] 20 mg 8-15 tablet by ity of tablet 00:00: mouth 4 [place] 00 (four) Medical times Branch daily as needed for Abdominal pain. ondansetron 2022-0 Yes [id number] 4mg Take 1 [facility] 4 mg 8-15 tablet by ity of disintegrat 00:00: mouth [place] ing tablet 00 every 8 Medica l (eight) Branch hours as needed for Nausea and Vomiting (N/V). dicyclomine 2022-0 Yes [id number] 20mg Take 1 [facility] 20 mg 8-15 tablet by ity of tablet 00:00: mouth 4 [place] 00 (four) Medical times Branch daily as needed for Abdominal pain. ondansetron 2022-0 Yes [id number] 4mg Take 1 [facility] 4 mg 8-15 tablet by ity of disintegrat 00:00: mouth [place] ing tablet 00 every 8 Medica l (eight) Branch hours as needed for Nausea and Vomiting (N/V). dicyclomine 2022-0 Yes [id number] 20mg Take 1 [facility] 20 mg 8-15 tablet by ity of tablet 00:00: mouth 4 (four) Medical times Branch daily as needed for Abdominal pain. ondansetron 2022-0 Yes [id number] 4mg Take 1 [facility] 4 mg 8-15 tablet by ity of disintegrat 00:00: mouth [place] ing tablet 00 every 8 Medica l (eight) Branch hours as needed for Nausea and Vomiting (N/V). dicyclomine 2022-0 Yes [id number] 20mg Take 1 [facility] 20 mg 8-15 tablet by ity of tablet 00:00: mouth 4 (four) Medical times Branch daily as needed for Abdominal pain. ondansetron 2022-0 Yes [id number] 4mg Take 1 [facility] 4 mg 8-15 tablet by ity of disintegrat 00:00: mouth [place] ing tablet 00 every 8 Medica l (eight) Branch hours as needed for Nausea and Vomiting (N/V). dicyclomine 2022-0 Yes [id number] 20mg Take 1 [facility] 20 mg 8-15 tablet by ity of tablet 00:00: mouth 4 [place] 00 (four) Medical times Branch daily as needed for Abdominal pain. ondansetron 2022-0 Yes [id number] 4mg Take 1 [facility] 4 mg 8-15 tablet by ity of disintegrat 00:00: mouth [place] ing tablet 00 every 8 Medica l (eight) Branch hours as needed for Nausea and Vomiting (N/V). dicyclomine 2022-0 Yes [id number] 20mg Take 1 [facility] 20 mg 8-15 tablet by ity of tablet 00:00: mouth 4 [place] 00 (four) Medical times Branch daily as needed for Abdominal pain. ondansetron 2021-0 Yes [id number] 4mg Take 1 [facility] 4 mg 8-15 tablet by ity of disintegrat 00:00: mouth [place] ing tablet 00 every 8 Medica l (eight) Branch hours as needed for Nausea and Vomiting (N/V). dicyclomine 2021-0 Yes [id number] 20mg Take 1 [facility] 20 mg 8-15 tablet by ity of tablet 00:00: mouth 4 00 (four) Medical times Branch daily as needed for Abdominal pain. ondansetron 2021-0 Yes [id number] 4mg Take 1 [facility] 4 mg 8-15 tablet by ity of disintegrat 00:00: mouth [place] ing tablet 00 every 8 Medica l (eight) Branch hours as needed for Nausea and Vomiting (N/V). dicyclomine 0 Yes [id number] 20mg Take 1 [facility] 20 mg 8-15 tablet by ity of tablet 00:00: mouth 4 00 (four) Medical times Branch daily as needed for Abdominal pain. ondansetron 2021-0 Yes [id number] 4mg Take 1 [facility] 4 mg 8-15 tablet by ity of disintegrat 00:00: mouth [place] ing tablet 00 every 8 Medica l (eight) Branch hours as needed for Nausea and Vomiting (N/V). dicyclomine 0 Yes [id number] 20mg Take 1 [facility] 20 mg 8-15 tablet by ity of tablet 00:00: mouth 4 (four) Medical times Branch daily as needed for Abdominal pain. insulin 2021- No 10U 10 Units, Univ ers regular 05-11 Subcutaneo ity o f human 23:00: 22:19 , ONCE, [place] (HUMULIN R) 00 :00 1 dose, On Me dical injection Mon Branch 10 Units 05/11/22 at 1800, Routine NaCl 0.9% 2021- No 1000mL at 999 Uni vers (NS) bolus 05-11 mL/hr, ity of infusion 22:00: 22:55 1,000 mL, [place] 1,000 mL 00 :00 IV Medical Infusion, Branch ONCE, 1 dose, On 05/11/22 at 1700, PATRIZIA cefdinir 2021- No [id number] 300mg Take 1 U nivers 300 mg 05-11 capsule by ity of capsule 00:00: 04:59 mouth 2 [place] 00 :00 (two) Medical times Branch daily for 7 days. acetaminoph 2021- No 650mg 650 mg, U nivers en 04-04 Oral, ity of (TYLENOL) 12:30: 11:28 ONCE, 1 [place] tablet 650 00 :00 dose, On Medic al mg 04/04/22 Branch at 0730, PATRIZ[place] cefTRIAXone 2021- No 1000mg 1,000 mg, [facility] (ROCEPHIN) 04-04 IV ity of 1,000 mg in 11:15: 11:55 [place], [place] NaCl 0.9% 00 :00 ONCE, 1 Medical (NS) 50 mL dose, On Branc h MINI-BAG 04/04/22 at 0615, Administer over 30 Minutes, 50 mL
R lianne for Anti-Infec tive: Documented Infection< br>Documen jesus Infection Site: Urine<br&g t;Duration of Therapy: Other (see Comments) levETIRAcet No 1000mg 1,000 mg, [facility] am (KEPPRA) 04-04 IV ity of in NACL 10:45: 09:50 [place], [place] (ISO-OS) 00 :00 ONCE, 1 Medical 1,000 dose, On Branch mg/100 mL 04/04/22 RTU at 0545, Administer over 15 Minutes, 100 mL NaCl 0.9% Yes 1000mL at 999 Univ ers (NS) IV 5-07 mL/hr, ity of infusion 10:30: Intravenou [place] 1,000 mL 00 s, Medical CONTINUOUS Branch , Starting on 04/04/22 at 0530, Until Discontinu ed, Routine insulin 2021- No 10U 10 Units, Univ ers regular 04-04 Subcutaneo ity o f human 10:30: 09:36 , ONCE, [place] (HUMULIN R) 00 :00 1 dose, On Me dical injection 04/04/22 Bran ch 10 Units at 0530, Routine NaCl 0.9% 2021- No 1000mL at 999 Uni vers (NS) IV 5-07 05-07 mL/hr, ity of infusion 10:30: 11:55 Intravenou [place] 1,000 mL 00 :00 s, ONCE, 1 Medic al dose, On Branch 04/04/22 at 0530, PATRIZIA glipiZIDE 2021-0 Yes [id number] 2.5mg Take 1 [facility] XL 2.5 mg 5-07 tablet by ity o f 24 hr 00:00: mouth [place] tablet 00 daily with Medical breakfast. Branch canaglifloz 2021-0 Yes [id number] 1{tbl} Take 1 [facility] in-metformi 5-07 tablet by ity of n 00:00: mouth 2 [place] (INVOKAMET) 00 (two) Medical 150-1,000 times Branch mg per daily. tablet cefdinir 2021-0 Yes [id number] 300mg Take 1 [facility] [place] 300 mg 5-07 capsule by ity of capsule 00:00: mouth [place] 00 every 12 Medical (twelve) Branch hours. glipiZIDE 2021-0 Yes [id number] 2.5mg Take 1 [facility] XL 2.5 mg 5-07 tablet by ity o f 24 hr 00:00: mouth [place] tablet 00 daily with Medical breakfast. Branch canaglifloz 2021-0 Yes [id number] 1{tbl} Take 1 [facility] in-metformi 5-07 tablet by ity of n 00:00: mouth 2 [place] (INVOKAMET) 00 (two) Medical 150-1,000 times Branch mg per daily. tablet cefdinir 2021-0 Yes [id number] 300mg Take 1 Un [place] 300 mg 5-07 capsule by ity of capsule 00:00: mouth [place] 00 every 12 Medical (twelve) Branch hours. glipiZIDE 2021-0 Yes [id number] 2.5mg Take 1 [facility] XL 2.5 mg 5-07 tablet by ity o f 24 hr 00:00: mouth [place] tablet 00 daily with Medical breakfast. Branch canaglifloz 2021-0 Yes [id number] 1{tbl} Take 1 [facility] in-metformi 5-07 tablet by ity of n 00:00: mouth 2 [place] (INVOKAMET) 00 (two) Medical 150-1,000 times Branch mg per daily. tablet cefdinir 2022-0 Yes [id number] 300mg Take 1 [facility] [place] 300 mg 5-07 capsule by ity of capsule 00:00: mouth [place] 00 every 12 Medical (twelve) Branch hours. glipiZIDE 2022-0 Yes [id number] 2.5mg Take 1 [facility] XL 2.5 mg 5-07 tablet by ity o f 24 hr 00:00: mouth [place] tablet 00 daily with Medical breakfast. Branch canaglifloz 2022-0 Yes [id number] 1{tbl} Take 1 [facility] in-metformi 5-07 tablet by ity of n 00:00: mouth 2 [place] (INVOKAMET) 00 (two) Medical 150-1,000 times Branch mg per daily. tablet cefdinir 2022-0 Yes [id number] 300mg Take 1 Un [place] 300 mg 5-07 capsule by ity of capsule 00:00: mouth [place] 00 every 12 Medical (twelve) Branch hours. glipiZIDE 2022-0 Yes [id number] 2.5mg Take 1 [facility] XL 2.5 mg 5-07 tablet by ity o f 24 hr 00:00: mouth [place] tablet 00 daily with Medical breakfast. Branch canaglifloz 2022-0 Yes [id number] 1{tbl} Take 1 [facility] in-metformi 5-07 tablet by ity of n 00:00: mouth 2 [place] (INVOKAMET) 00 (two) Medical 150-1,000 times Branch mg per daily. tablet cefdinir 2022-0 Yes [id number] 300mg Take 1 [facility] [place] 300 mg 5-07 capsule by ity of capsule 00:00: mouth [place] 00 every 12 Medical (twelve) Branch hours. glipiZIDE 2022-0 Yes [id number] 2.5mg Take 1 [facility] XL 2.5 mg 5-07 tablet by ity o f 24 hr 00:00: mouth [place] tablet 00 daily with Medical breakfast. Branch canaglifloz 2022-0 Yes [id number] 1{tbl} Take 1 [facility] in-metformi 5-07 tablet by ity of n 00:00: mouth 2 [place] (INVOKAMET) 00 (two) Medical 150-1,000 times Branch mg per daily. tablet glipiZIDE 2022-0 Yes [id number] 2.5mg Take 1 [facility] XL 2.5 mg 5-07 tablet by ity o f 24 hr 00:00: mouth [place] tablet 00 daily with Medical breakfast. Branch canaglifloz Yes [id number] 1{tbl} Take 1 [facility] in-metformi 5-07 tablet by ity of n 00:00: mouth 2 [place] (INVOKAMET) 00 (two) Medical 150-1,000 times Branch mg per daily. tablet glipiZIDE Yes [id number] 2.5mg Take 1 [facility] XL 2.5 mg 5-07 tablet by ity o f 24 hr 00:00: mouth [place] tablet 00 daily with Medical breakfast. Branch glipiZIDE 2022- No [id number] 2.5mg Take 1 [facility] XL 2.5 mg 5-07 -02 tablet by ity of 24 hr 00:00: 00:00 mouth [place] tablet 00 :00 daily with Medical breakfast. Branch canaglifloz 2021- No [id number] 1{tbl} Take 1 [facility] in-metformi 04-04 tablet by it y of n 00:00: 00:00 mouth 2 [place] (INVOKAMET) 00 :00 (two) Medical 150-1,000 times Branch mg per daily. tablet cefdinir 2021- No [id number] 300mg Take 1 U nivers 300 mg 04-04 capsule by ity of capsule 00:00: 00:00 mouth [place] 00 :00 every 12 Medical (twelve) Branch hours. cefTRIAXone 2021- No 1000mg 1,000 mg, Univers (ROCEPHIN) 12-06 IV ity of 1,000 mg in 17:45: 17:26 [place], [place] NaCl 0.9% 00 :00 ONCE, 1 Medical (NS) 50 mL dose, On [facility] h MINI-BAG 12/06/21 at 1145, Administer over 30 Minutes, 50 mL
R lianne for Anti-Infec tive: Documented Infection< br>Documen jesus Infection Site: Urine<br&g t;Duration of Therapy: Other (see Comments) iopamidol 2021- No [id number] 100mL 100 mL, Univers (ISOVUE 1-08 01-08 Intravenou ity o f 370-500 mL) 17:15: 15:50 s, ONCE, 1 [place] injection 00 :00 dose, On Medica l 100 mL 12/06/21 Branch at 1115, Routine cephALEXin 2022-0 Yes [id number] 500mg Take 1 [facility] (KEFLEX) 1-08 capsule by ity o f 500 mg 00:00: mouth 3 [place] capsule 00 (three) Medical times Branch daily. cephALEXin 202-0 Yes [id number] 500mg Take 1 [facility] (KEFLEX) 1-08 capsule by ity o f 500 mg 00:00: mouth 3 [place] capsule 00 (three) Medical times Branch daily. cephALEXin 202-0 Yes [id number] 500mg Take 1 [facility] (KEFLEX) 1-08 capsule by ity o f 500 mg 00:00: mouth 3 [place] capsule 00 (three) Medical times Branch daily. cephALEXin 202-0 Yes [id number] 500mg Take 1 [facility] (KEFLEX) 1-08 capsule by ity o f 500 mg 00:00: mouth 3 [place] capsule 00 (three) Medical times Branch daily. cephALEXin 2021-0 Yes [id number] 500mg Take 1 [facility] (KEFLEX) 1-08 capsule by ity o f 500 mg 00:00: mouth 3 [place] capsule 00 (three) Medical times Branch daily. cephALEXin 202-0 Yes [id number] 500mg Take 1 [facility] (KEFLEX) 1-08 capsule by ity o f 500 mg 00:00: mouth 3 [place] capsule 00 (three) Medical times Branch daily. cephALEXin 2022-0 2021- No [id number] 500mg Take 1 [facility] (KEFLEX) 1-08 -03 capsule by ity of 500 mg 00:00: 00:00 mouth 3 [place] capsule 00 :00 (three) Medical times Branch daily. glipiZIDE Yes [id number] 2.5mg Take 1 [facility] XL 2.5 mg 6-15 tablet by ity o f 24 hr 00:00: mouth [place] tablet 00 daily with Medical breakfast. Branch glipiZIDE Yes [id number] 2.5mg Take 1 [facility] XL 2.5 mg 6-15 tablet by ity o f 24 hr 00:00: mouth [place] tablet 00 daily with Medical breakfast. Branch glipiZIDE Yes [id number] 2.5mg Take 1 [facility] XL 2.5 mg 6-15 tablet by ity o f 24 hr 00:00: mouth [place] tablet 00 daily with Medical breakfast. [place] glipiZIDE Yes [id number] 2.5mg Take 1 [facility] XL 2.5 mg 6-15 tablet by ity o f 24 hr 00:00: mouth [place] tablet 00 daily with Medical breakfast. [place] glipiZIDE Yes [id number] 2.5mg Take 1 [facility] XL 2.5 mg 6-15 tablet by ity o f 24 hr 00:00: mouth [place] tablet 00 daily with Medical breakfast. [place] glipiZIDE Yes [id number] 2.5mg Take 1 [facility] XL 2.5 mg 6-15 tablet by ity o f 24 hr 00:00: mouth [place] tablet 00 daily with Medical breakfast. [place] glipiZIDE Yes [id number] 2.5mg Take 1 [facility] XL 2.5 mg 6-15 tablet by ity o f 24 hr 00:00: mouth [place] tablet 00 daily with Medical breakfast. [place] glipiZIDE Yes [id number] 2.5mg Take 1 [facility] XL 2.5 mg 6-15 tablet by ity o f 24 hr 00:00: mouth [place] tablet 00 daily with Medical breakfast. [place] glipiZIDE Yes [id number] 2.5mg Take 1 [facility] XL 2.5 mg 6-15 tablet by ity o f 24 hr 00:00: mouth [place] tablet 00 daily with Medical breakfast. [place] glipiZIDE Yes [id number] 2.5mg Take 1 [facility] XL 2.5 mg 6-15 tablet by ity o f 24 hr 00:00: mouth [place] tablet 00 daily with Medical breakfast. [place] glipiZIDE Yes [id number] 2.5mg Take 1 [facility] XL 2.5 mg 6-15 tablet by ity o f 24 hr 00:00: mouth [place] tablet 00 daily with Medical breakfast. [place] glipiZIDE Yes [id number] 2.5mg Take 1 [facility] XL 2.5 mg 6-15 tablet by ity o f 24 hr 00:00: mouth [place] tablet 00 daily with Medical breakfast. [place] glipiZIDE Yes [id number] 2.5mg Take 1 [facility] XL 2.5 mg 6-15 tablet by ity o f 24 hr 00:00: mouth [place] tablet 00 daily with Medical breakfast. Branch glipiZIDE Yes [id number] 2.5mg Take 1 [facility] XL 2.5 mg 6-15 tablet by ity o f 24 hr 00:00: mouth [place] tablet 00 daily with Medical breakfast. Branch glipiZIDE Yes [id number] 2.5mg Take 1 [facility] XL 2.5 mg 6-15 tablet by ity o f 24 hr 00:00: mouth [place] tablet 00 daily with Medical breakfast. Branch glipiZIDE Yes [id number] 2.5mg Take 1 [facility] XL 2.5 mg 6-15 tablet by ity o f 24 hr 00:00: mouth [place] tablet 00 daily with Medical breakfast. Branch glipiZIDE Yes [id number] 2.5mg Take 1 [facility] XL 2.5 mg 6-15 tablet by ity o f 24 hr 00:00: mouth [place] tablet 00 daily with Medical breakfast. Branch INVOKAMET Yes [id number] TAKE ONE [facility] 150-1,000 3-06 TABLET BY ity o f mg per 00:00: MOUTH [place] tablet 00 TWICE Medical DAILY Branch INVOKAMET Yes [id number] TAKE ONE [facility] 150-1,000 3-06 TABLET BY ity o f mg per 00:00: MOUTH [place] tablet 00 TWICE Medical DAILY Branch INVOKAMET Yes [id number] TAKE ONE [facility] 150-1,000 3-06 TABLET BY ity o f mg per 00:00: MOUTH [place] tablet 00 TWICE Medical DAILY Branch INVOKAMET Yes [id number] TAKE ONE [facility] 150-1,000 3-06 TABLET BY ity o f mg per 00:00: MOUTH [place] tablet 00 TWICE Medical DAILY Branch INVOKAMET Yes [id number] TAKE ONE [facility] 150-1,000 3-06 TABLET BY ity o f mg per 00:00: MOUTH [place] tablet 00 TWICE Medical DAILY Branch INVOKAMET Yes [id number] TAKE ONE [facility] 150-1,000 3-06 TABLET BY ity o f mg per 00:00: MOUTH [place] tablet 00 TWICE Medical DAILY Branch INVOKAMET Yes [id number] TAKE ONE [facility] 150-1,000 3-06 TABLET BY ity o f mg per 00:00: MOUTH [place] tablet 00 TWICE Medical DAILY Branch INVOKAMET 2018-0 Yes [id number] TAKE ONE [facility] 150-1,000 3-06 TABLET BY ity o f mg per 00:00: MOUTH [place] tablet 00 TWICE Medical DAILY Branch INVOKAMET 2018-0 Yes [id number] TAKE ONE [facility] 150-1,000 3-06 TABLET BY ity o f mg per 00:00: MOUTH [place] tablet 00 TWICE Medical DAILY Branch INVOKAMET [id number] 2022- No [id number] TAKE ONE [facility] 150-1,000 3-06 12-06 TABLET BY ity of mg per 00:00: 00:00 MOUTH [place] tablet 00 :00 TWICE Medical DAILY Branch CANAGLIFLOZ 2016-11 Yes 1000mg Take 1,000 [facility] IN 1-09 mg by ity of (INVOKANA 14:27: mouth 2 [place] ORAL) 32 (two) Medical times Branch daily. CANAGLIFLOZ 2016-11 Yes 1000mg Take 1,000 [facility] IN 1-09 mg by ity of (INVOKANA 14:27: mouth 2 [place] ORAL) 32 (two) Medical times Branch daily. CANAGLIFLOZ 2016-11 Yes 1000mg Take 1,000 [facility] IN 1-09 mg by ity of (INVOKANA 14:27: mouth 2 [place] ORAL) 32 (two) Medical times Branch daily. CANAGLIFLOZ 2016-11 Yes 1000mg Take 1,000 [facility] IN 1-09 mg by ity of (INVOKANA 14:27: mouth 2 [place] ORAL) 32 (two) Medical times Branch daily. CANAGLIFLOZ 2016-11 Yes 1000mg Take 1,000 [facility] IN 1-09 mg by ity of (INVOKANA 14:27: mouth 2 [place] ORAL) 32 (two) Medical times Branch daily. CANAGLIFLOZ 2016- Yes 1000mg Take 1,000 [facility] IN 1-09 mg by ity of (INVOKANA 14:27: mouth 2 [place] ORAL) 32 (two) Medical times Branch daily. CANAGLIFLOZ 2016- Yes 1000mg Take 1,000 [facility] IN 1-09 mg by ity of (INVOKANA 14:27: mouth 2 [place] ORAL) 32 (two) Medical times Branch daily. CANAGLIFLOZ 2016- Yes 1000mg Take 1,000 [facility] IN 1-09 mg by ity of (INVOKANA 14:27: mouth 2 [place] ORAL) 32 (two) Medical times Branch daily. CANAGLIFLOZ 2016-11 Yes 1000mg Take 1,000 [facility] IN 1-09 mg by ity of (INVOKANA 14:27: mouth 2 [place] ORAL) 32 (two) Medical times Branch daily. CANAGLIFLOZ 2016-11 Yes 1000mg Take 1,000 [facility] IN 1-09 mg by ity of (INVOKANA 14:27: mouth 2 [place] ORAL) 32 (two) Medical times Branch daily. CANAGLIFLOZ 2016-11 Yes 1000mg Take 1,000 [facility] IN 1-09 mg by ity of (INVOKANA 14:27: mouth 2 [place] ORAL) 32 (two) Medical times Branch daily. CANAGLIFLOZ 2016-11 Yes 1000mg Take 1,000 [facility] IN 1-09 mg by ity of (INVOKANA 14:27: mouth 2 [place] ORAL) 32 (two) Medical times Branch daily. CANAGLIFLOZ 2016-11 Yes 1000mg Take 1,000 [facility] IN 1-09 mg by ity of (INVOKANA 14:27: mouth 2 [place] ORAL) 32 (two) Medical times Branch daily. CANAGLIFLOZ 2016-11 Yes 1000mg Take 1,000 [facility] IN 1-09 mg by ity of (INVOKANA 14:27: mouth 2 [place] ORAL) 32 (two) Medical times Branch daily. lovastatin 2016-11 Yes [id number] 40mg Take 1 U nivers 40 mg 0-26 tablet by ity of tablet 00:00: mouth at [place] 00 bedtime. Medical Branch lovastatin 2016-11 Yes [id number] 40mg Take 1 U nivers 40 mg 0-26 tablet by ity of tablet 00:00: mouth at [place] 00 bedtime. Medical Branch lovastatin 2016-11 Yes [id number] 40mg Take 1 U nivers 40 mg 0-26 tablet by ity of tablet 00:00: mouth at [place] 00 bedtime. Medical Branch lovastatin 2016-11 Yes [id number] 40mg Take 1 U nivers 40 mg 0-26 tablet by ity of tablet 00:00: mouth at [place] 00 bedtime. Medical Branch lovastatin 2016-11 Yes [id number] 40mg Take 1 U nivers 40 mg 0-26 tablet by ity of tablet 00:00: mouth at [place] 00 bedtime. Medical Branch lovastatin 2016-11 Yes [id number] 40mg Take 1 U nivers 40 mg 0-26 tablet by ity of tablet 00:00: mouth at [place] [address] bedtime. Medical Branch lovastatin 2016-11 Yes [id number] 40mg Take 1 U nivers 40 mg 0-26 tablet by ity of tablet 00:00: mouth at [place] [address] bedtime. Medical Branch lovastatin 2016-11 Yes [id number] 40mg Take 1 U nivers 40 mg 0-26 tablet by ity of tablet 00:00: mouth at [place] [address] bedtime. Medical Branch lovastatin 2016-11 Yes [id number] 40mg Take 1 U nivers 40 mg 0-26 tablet by ity of tablet 00:00: mouth at [place] [address] bedtime. Medical Branch lovastatin 2016-11 Yes [id number] 40mg Take 1 U nivers 40 mg 0-26 tablet by ity of tablet 00:00: mouth at [place] [address] bedtime. Medical Branch lovastatin 2016-11 Yes [id number] 40mg Take 1 U nivers 40 mg 0-26 tablet by ity of tablet 00:00: mouth at [place] [address] bedtime. Medical Branch lovastatin 2016-11 Yes [id number] 40mg Take 1 U nivers 40 mg 0-26 tablet by ity of tablet 00:00: mouth at [place] [address] bedtime. Medical Branch lovastatin 2016-11 Yes [id number] 40mg Take 1 U nivers 40 mg 0-26 tablet by ity of tablet 00:00: mouth at [place] [address] bedtime. Medical Branch lovastatin 2016-11 Yes [id number] 40mg Take 1 U nivers 40 mg 0-26 tablet by ity of tablet 00:00: mouth at [place] [address] bedtime. Medical Branch lovastatin 2016-11 Yes [id number] 40mg Take 1 U nivers 40 mg 0-26 tablet by ity of tablet 00:00: mouth at [place] [address] bedtime. Medical Branch lovastatin 2016-11 Yes [id number] 40mg Take 1 U nivers 40 mg 0-26 tablet by ity of tablet 00:00: mouth at [place] [address] bedtime. Medical Branch lovastatin 2016-11 Yes [id number] 40mg Take 1 U nivers 40 mg 0-26 tablet by ity of tablet 00:00: mouth at [place] [address] bedtime. Medical Branch traMADOL 2017-0 Yes 50mg Take 50 mg Uni vers (ULTRAM) 50 7-06 by mouth ity of mg tablet 10:55: every 12 [place] 44 (twelve) Medical hours as Branch needed for Pain unrelieved by non-narcot ic analgesics . traMADOL 2017-0 Yes 50mg Take 50 mg Uni vers (ULTRAM) 50 7-06 by mouth ity of mg tablet 10:55: every 12 [place] 44 (twelve) Medical hours as Branch needed for Pain unrelieved by non-narcot ic analgesics . traMADOL 2017-0 Yes 50mg Take 50 mg Uni vers (ULTRAM) 50 7-06 by mouth ity of mg tablet 10:55: every 12 [place] 44 (twelve) Medical hours as Branch needed for Pain unrelieved by non-narcot ic analgesics . traMADOL 2017-0 Yes 50mg Take 50 mg Uni vers (ULTRAM) 50 7-06 by mouth ity of mg tablet 10:55: every 12 [place] 44 (twelve) Medical hours as Branch needed for Pain unrelieved by non-narcot ic analgesics . traMADOL 2017-0 Yes 50mg Take 50 mg Uni vers (ULTRAM) 50 7-06 by mouth ity of mg tablet 10:55: every 12 [place] 44 (twelve) Medical hours as Branch needed for Pain unrelieved by non-narcot ic analgesics . traMADOL 2017-0 Yes 50mg Take 50 mg Uni vers (ULTRAM) 50 7-06 by mouth ity of mg tablet 10:55: every 12 [place] 44 (twelve) Medical hours as Branch needed for Pain unrelieved by non-narcot ic analgesics . traMADOL 2017-0 Yes 50mg Take 50 mg Uni vers (ULTRAM) 50 7-06 by mouth ity of mg tablet 10:55: every 12 [place] 44 (twelve) Medical hours as Branch needed for Pain unrelieved by non-narcot ic analgesics . traMADOL 2017-0 Yes 50mg Take 50 mg [facility] (ULTRAM) 50 7-06 by mouth ity of mg tablet 10:55: every 12 [place] 44 (twelve) Medical hours as Branch needed for Pain unrelieved by non-narcot ic analgesics . traMADOL 2017-0 Yes 50mg Take 50 mg Uni vers (ULTRAM) 50 7-06 by mouth ity of mg tablet 10:55: every 12 [place] 44 (twelve) Medical hours as Branch needed for Pain unrelieved by non-narcot ic analgesics . traMADOL 2017-0 Yes 50mg Take 50 mg Uni vers (ULTRAM) 50 7-06 by mouth ity of mg tablet 10:55: every 12 [place] 44 (twelve) Medical hours as Branch needed for Pain unrelieved by non-narcot ic analgesics . traMADOL 2017-0 Yes 50mg Take 50 mg Uni vers (ULTRAM) 50 7-06 by mouth ity of mg tablet 10:55: every 12 [place] 44 (twelve) Medical hours as Branch needed for Pain unrelieved by non-narcot ic analgesics . traMADOL 2017-0 Yes 50mg Take 50 mg [facility] vers (ULTRAM) 50 7-06 by mouth ity of mg tablet 10:55: every 12 [place] (twelve) Medical hours as Branch needed for Pain unrelieved by non-narcot ic analgesics . traMADOL 2017-0 Yes 50mg Take 50 mg [facility] (ULTRAM) 50 7-06 by mouth ity of mg tablet 10:55: every 12 [place] 44 (twelve) Medical hours as Branch needed for Pain unrelieved by non-narcot ic analgesics . traMADOL 2017-0 Yes 50mg Take 50 mg [facility] (ULTRAM) 50 7-06 by mouth ity of mg tablet 10:55: every 12 [place] (twelve) Medical hours as Branch needed for Pain unrelieved by non-narcot ic analgesics . peg-electro 2015-11 Yes Take as Uni vers lyte soln 2-27 directed ity of 236-22.74-6 00:00: before [place] .74 -5.86 00 colonoscop Medi theron gram y Branch solution peg-electro 2015-11 Yes Take as Uni vers lyte soln 2-27 directed ity of 236-22.74-6 00:00: before [place] .74 -5.86 00 colonoscop Medi theron gram y Branch solution peg-electro 2015-11 Yes Take as Uni vers lyte soln 2-27 directed ity of 236-22.74-6 00:00: before [place] .[place] -5.86 00 colonoscop Medi theron gram y Branch solution peg-electro 2015-11 Yes Take as [facility] vers lyte soln 2-27 directed ity of 236-22.74-6 00:00: before [place] .[place] -5.86 00 colonoscop Medi theron gram y Branch solution peg-electro 2015-11 Yes Take as Uni vers lyte soln 2-27 directed ity of 236-22.74-6 00:00: before [place] .[place] -5.86 00 colonoscop Medi theron gram y Branch solution peg-electro 2015-11 Yes Take as Uni vers lyte soln 2-27 directed ity of 236-22.74-6 [place] -5.[place] colonoscop Medi theron gram y Branch solution peg-electro 2015-11 Yes Take as Uni vers lyte soln 2-27 directed ity of 236-22.74-6 00:[place] .[place] -5.86 00 colonoscop Medi theron gram y Branch solution peg-electro 2015-11 Yes Take as Uni vers lyte soln 2-27 directed ity of 236-22.74-6 [place] -5.86 [place] colonoscop Medi theron gram y Branch solution peg-electro 2015-11 Yes Take as Uni vers lyte soln 2-27 directed ity of 236-22.74-6 00:[place] -5.86 [place] colonoscop Medi theron gram y Branch solution peg-electro 2015-11 Yes Take as Uni vers lyte soln 2-27 directed ity of 236-22.74-6 00:[place] -5.86 00 colonoscop Medi theron gram y Branch solution peg-electro 2015-11 Yes Take as Uni vers lyte soln 2-27 directed ity of 236-22.74-6 00:00[place] -5.86 00 colonoscop Medi theron gram y Branch solution peg-electro 2015-11 Yes Take as Uni vers lyte soln 2-27 directed ity of 236-22.74-6 00:00[place] .[place] -5.86 00 colonoscop Medi theron gram y Branch solution peg-electro 2015-11 Yes Take as Uni vers lyte soln 2-27 directed ity of 236-22.74-6 00:00: [place] .[place] -5.86 00 colonoscop Medi theron gram y Branch solution peg-electro 2015-11 Yes Take as Uni vers lyte soln 2-27 directed ity of 236-22.74-6 00:00: [place] .[place] -5.86 00 colonoscop Medi theron gram y Branch solution peg-electro 2015-11 Yes Take as Uni vers lyte soln 2-27 directed ity of 236-22.74-6 00:00: [place] -5.86 00 colonoscop Medi theron gram y Branch solution peg-electro 2015-11 Yes Take as Uni vers lyte soln 2-27 directed ity of 236-22.74-6 00:00: [place] .[place] -5.86 00 colonoscop Medi theron gram y Branch solution peg-electro 2015-11 Yes Take as Uni vers lyte soln 2-27 directed ity of 236-22.74-6 00:00[place] .[place] -5.86 00 colonoscop Medi theron gram y Branch solution pantoprazol 2015-0 Yes 40mg Take 1 Univ ers e 6-07 tablet by ity of (PROTONIX) 00:00: mouth [place] 40 mg EC 00 daily. Medical tablet Branch pantoprazol 2015-0 Yes 40mg Take 1 Univ ers e 6-07 tablet by ity of (PROTONIX) 00:00: mouth [place] 40 mg EC 00 daily. Medical tablet Branch pantoprazol 2015-0 Yes 40mg Take 1 Univ ers e 6-07 tablet by ity of (PROTONIX) 00:00: mouth [place] 40 mg EC 00 daily. Medical tablet Branch pantoprazol 2015-0 Yes 40mg Take 1 Univ ers e 6-07 tablet by ity of (PROTONIX) 00:00: mouth [place] 40 mg EC 00 daily. Medical tablet Branch pantoprazol 2016-0 Yes 40mg Take 1 Univ ers e 6-07 tablet by ity of (PROTONIX) 00:00: mouth [place] 40 mg EC 00 daily. Medical tablet Branch pantoprazol 2016-0 Yes 40mg Take 1 Univ ers e 6-07 tablet by ity of (PROTONIX) 00:00: mouth [place] 40 mg EC 00 daily. Medical tablet Branch pantoprazol 2016-0 Yes 40mg Take 1 Univ ers e 6-07 tablet by ity of (PROTONIX) 00:00: mouth [place] 40 mg EC 00 daily. Medical tablet Branch pantoprazol 2016-0 Yes 40mg Take 1 Univ ers e 6-07 tablet by ity of (PROTONIX) 00:00: mouth [place] 40 mg EC 00 daily. Medical tablet Branch pantoprazol 2016-0 Yes 40mg Take 1 Univ ers e 6-07 tablet by ity of (PROTONIX) 00:00: mouth [place] 40 mg EC 00 daily. Medical tablet Branch pantoprazol 2016-0 Yes 40mg Take 1 Univ ers e 6-07 tablet by ity of (PROTONIX) 00:00: mouth [place] 40 mg EC 00 daily. Medical tablet Branch pantoprazol 2016-0 Yes 40mg Take 1 Univ ers e 6-07 tablet by ity of (PROTONIX) 00:00: mouth [place] 40 mg EC 00 daily. Medical tablet Branch pantoprazol 2016-0 Yes 40mg Take 1 Univ ers e 6-07 tablet by ity of (PROTONIX) 00:00: mouth [place] 40 mg EC 00 daily. Medical tablet Branch pantoprazol 2016-0 Yes 40mg Take 1 Univ ers e 6-07 tablet by ity of (PROTONIX) 00:00: mouth [place] 40 mg EC 00 daily. Medical tablet Branch pantoprazol 2016-0 Yes 40mg Take 1 Univ ers e 6-07 tablet by ity of (PROTONIX) 00:00: mouth [place] 40 mg EC 00 daily. Medical tablet Branch pantoprazol 2016-0 Yes 40mg Take 1 Univ ers e 6-07 tablet by ity of (PROTONIX) 00:00: mouth [place] 40 mg EC 00 daily. Medical tablet Branch pantoprazol 2016-0 Yes 40mg Take 1 Univ ers e 6-07 tablet by ity of (PROTONIX) 00:00: mouth [place] 40 mg EC 00 daily. Medical tablet Branch pantoprazol 2016-0 Yes 40mg Take 1 Univ ers e 6-07 tablet by ity of (PROTONIX) 00:00: mouth [place] 40 mg EC 00 daily. Medical tablet Branch Immunizations Ordered Filled Immunization Date Status Comments [facility] e Immunization Name Name Td 2022-10-01 Completed University of 00:00:00 [facility] Td 2022-10-01 Completed University of 00:00:00 [place] [facility] Td 2022-10-01 Completed University of 00:00:00 [facility] TD, NOS 2022-10-01 Completed University of 00:00:00 [facility] TD, NOS 2022-10-01 Completed University of 00:00:00 [facility] [place] [facility] TD, NOS 2022-10-01 Completed University of 00:00:00 [place] [facility] TD, NOS 2022-10-01 Completed University of 00:00:00 [facility] [place] [facility] TD, NOS 2022-10-01 Completed University of 00:00:00 [facility] [place] [facility] TD, NOS 2022-10-01 Completed University of 00:00:00 [facility] [place] [facility] TD, NOS 2022-10-01 Completed University of 00:00:00 [facility] Vital Signs Vital Name Observation Time Observation Value Comments Source Systolic blood 2023-01-21 16:42:00 135 mm[Hg] Univer sity of pressure [facility] Diastolic blood 2023-01-21 16:42:00 85 mm[Hg] Unive rsity of [facility] Heart rate 2023-01-21 16:42:00 79 /min Univers ty [facility] Body temperature 2023-01-21 16:42:00 36.33 Anila [facility] ersity [facility] Respiratory rate 2023-01-21 16:42:00 16 /min Univ ersity [facility] Body height 2023-01-21 16:42:00 157.5 cm [facility] Body weight 2023-01-21 16:42:00 73.619 kg [facility] BMI 2023-01-21 16:42:00 29.69 kg/m2 [facility] Oxygen saturation in 2023-01-21 16:42:00 99 /min University of Arterial blood by [facility] Pulse oximetry Branch Systolic blood 2023-01-04 03:03:00 168 mm[Hg] Univer sity of pressure [place] [facility] [place] Diastolic blood 2023-01-04 03:03:00 69 mm[Hg] Unive rsity of pressure [facility] Heart rate 2023-01-04 03:03:00 84 /min Universi ty [facility] Respiratory rate 2023-01-04 03:03:00 20 /min Univ ersity [facility] Oxygen saturation in 2023-01-04 03:03:00 97 /min University of Arterial blood by [place] [facility] Pulse oximetry Branch Body temperature 2023-01-04 01:40:00 37.39 Anila Univ ersity of [place] [facility] Body height 2023-01-04 01:40:00 157.5 cm Universi ty of [place] [facility] Body weight 2023-01-04 01:40:00 71.215 kg Universi ty of [place] [facility] BMI 2023-01-04 01:40:00 28.72 kg/m2 Universi ty of [place] [facility] Respiratory rate 2022-12-11 00:54:00 22 /min Univ ersity of [place] [facility] Oxygen saturation in 2022-12-11 00:54:00 100 /min University of Arterial blood by [facility] theron Pulse oximetry Branch Systolic blood 2022-12-11 00:30:00 144 mm[Hg] Univer sity of pressure [facility] [place] [facility] Diastolic blood 2022-12-11 00:30:00 78 mm[Hg] Unive rsity of pressure [facility] [place] [facility] Heart rate 2022-12-11 00:30:00 99 /min Universi ty of [place] [facility] Body temperature 2022-12-10 22:24:00 37.11 Anila Univ ersity of [place] [facility] Body height 2022-12-10 22:24:00 157.5 cm Universi ty of [place] [facility] Body weight 2022-12-10 22:24:00 71.215 kg Universi ty of [place] [facility] BMI 2022-12-10 22:24:00 28.72 kg/m2 Universi ty of [place] [facility] Systolic blood 2022-11-30 12:06:00 122 mm[Hg] Univer sity of pressure [place] [facility] Diastolic blood 2022-11-30 12:06:00 77 mm[Hg] Unive rsity of pressure [facility] [place] [facility] Heart rate 2022-11-30 12:06:00 64 /min Universi ty of [place] [facility] Respiratory rate 2022-11-30 12:06:00 13 /min Univ ersity of [place] [facility] Oxygen saturation in 2022-11-30 12:06:00 95 /min University of Arterial blood by [place] [facility] theron Pulse oximetry Branch Body temperature 2022-11-30 09:55:00 36.72 Anila Univ ersity of [place] [facility] Body height 2022-11-30 09:55:00 157.5 cm Universi ty of [place] [facility] Body weight 2022-11-30 09:55:00 65.772 kg Universi ty of [place] [facility] BMI 2022-11-30 09:55:00 26.52 kg/m2 Universi ty of [place] [facility] Systolic blood 2022-11-03 23:02:00 148 mm[Hg] Univer sity of pressure [place] [facility] Diastolic blood 2022-11-03 23:02:00 78 mm[Hg] Unive rsity of pressure [facility] [place] [facility] Heart rate 2022-11-03 23:02:00 87 /min Universi ty of [place] [facility] Body temperature 2022-11-03 23:02:00 37.44 Anila Univ ersity of [place] [facility] Respiratory rate 2022-11-03 23:02:00 18 /min Univ ersity of [place] [facility] Body height 2022-11-03 23:02:00 157.5 cm Universi ty of [place] [facility] Body weight 2022-11-03 23:02:00 65.772 kg Universi ty of [place] [facility] BMI 2022-11-03 23:02:00 26.52 kg/m2 Universi ty of [place] [facility] Oxygen saturation in 2022-11-03 23:02:00 100 /min University of Arterial blood by [place] [facility] theron Pulse oximetry Branch Systolic blood 2022-10-29 01:23:00 154 mm[Hg] Univer sity of pressure [place] [facility] Diastolic blood 2022-10-29 01:23:00 78 mm[Hg] Unive rsity of pressure [place] [facility] [place] Heart rate 2022-10-29 01:23:00 66 /min Universi ty of [place] [facility] Respiratory rate 2022-10-29 01:23:00 18 /min Univ ersity of [place] [facility] Oxygen saturation in 2022-10-29 01:23:00 100 /min University of Arterial blood by [place] [facility] theron Pulse oximetry Branch Body temperature 2022-10-28 21:44:00 37.5 Anila Univ ersity of [place] [facility] Body height 2022-10-28 21:44:00 157.5 cm Universi ty of [place] [facility] Body weight 2022-10-28 21:44:00 65.772 kg Universi ty of [place] [facility] BMI 2022-10-28 21:44:00 26.52 kg/m2 Universi ty of [place] [facility] Systolic blood 2022-10-01 21:51:00 174 mm[Hg] Univer sity of pressure [place] [facility] Diastolic blood 2022-10-01 21:51:00 77 mm[Hg] Unive rsity of pressure [place] [facility] Heart rate 2022-10-01 21:51:00 80 /min Universi ty of [place] [facility] Body temperature 2022-10-01 21:51:00 37.11 Anila Univ ersity of [place] [facility] Respiratory rate 2022-10-01 21:51:00 18 /min Univ ersity of [place] [facility] Body weight 2022-10-01 21:51:00 65.772 kg Universi ty of [place] [facility] BMI 2022-10-01 21:51:00 26.52 kg/m2 Universi ty of [place] [facility] Oxygen saturation in 2022-10-01 21:51:00 97 /min University of Arterial blood by [facility] Pulse oximetry Branch Systolic blood 2022-09-16 01:15:00 154 mm[Hg] Univer sity of pressure [place] [facility] Diastolic blood 2022-09-16 01:15:00 84 mm[Hg] Unive rsity of pressure [place] [facility] Heart rate 2022-09-16 01:15:00 65 /min Universi ty of [place] [facility] Oxygen saturation in 2022-09-16 01:15:00 99 /min University of Arterial blood by [facility] Pulse oximetry Branch Body temperature 2022-09-15 22:45:00 37.11 Anila Univ ersity of [place] [facility] Respiratory rate 2022-09-15 21:36:00 18 /min Univ ersity of [place] [facility] Body weight 2022-09-15 21:36:00 68.04 kg Universi ty of [place] [facility] BMI 2022-09-15 21:36:00 27.44 kg/m2 Universi ty of [place] [facility] Systolic blood 2022-08-21 02:30:00 159 mm[Hg] Univer sity of pressure [place] [facility] Diastolic blood 2022-08-21 02:30:00 83 mm[Hg] Unive rsity of pressure [place] [facility] Heart rate 2022-08-21 02:30:00 77 /min Universi ty of [place] [facility] Respiratory rate 2022-08-21 02:30:00 17 /min Univ ersity of [place] [facility] Oxygen saturation in 2022-08-21 02:30:00 96 /min University of Arterial blood by [place] [facility] Pulse oximetry Branch Body temperature 2022-08-21 01:04:00 37.56 Anila Univ ersity of [place] [facility] Body height 2022-08-21 01:04:00 157.5 cm Universi ty of [place] [facility] Body weight 2022-08-21 01:04:00 68.04 kg Universi ty of [place] [facility] BMI 2022-08-21 01:04:00 27.44 kg/m2 Universi ty of [place] [facility] Systolic blood 2022-07-13 22:20:00 135 mm[Hg] Univer sity of pressure [place] [facility] Diastolic blood 2022-07-13 22:20:00 60 mm[Hg] Unive rsity of pressure [facility] [place] [facility] Heart rate 2022-07-13 22:20:00 77 /min Universi ty of [place] [facility] Respiratory rate 2022-07-13 22:20:00 18 /min Univ ersity of [place] [facility] Oxygen saturation in 2022-07-13 22:20:00 98 /min University of Arterial blood by [facility] Pulse oximetry Branch Body temperature 2022-07-13 20:44:00 37.22 Anila Univ ersity of [place] [facility] Body height 2022-07-13 20:44:00 157.5 cm Universi ty of [place] [facility] Body weight 2022-07-13 20:44:00 72.258 kg Universi ty of [place] [facility] BMI 2022-07-13 20:44:00 29.14 kg/m2 Universi ty of [place] [facility] Systolic blood 2022-05-11 22:00:00 123 mm[Hg] Univer sity of pressure [facility] [place] [facility] Diastolic blood 2022-05-11 22:00:00 66 mm[Hg] Unive rsity of pressure [place] [facility] Heart rate 2022-05-11 22:00:00 76 /min Universi ty of [place] [facility] Respiratory rate 2022-05-11 22:00:00 17 /min Univ ersity of [place] [facility] Oxygen saturation in 2022-05-11 22:00:00 97 /min University of Arterial blood by [facility] theron Pulse oximetry Branch Body temperature 2022-05-11 20:43:00 36.44 Anila Univ ersity of [place] [facility] Body weight 2022-05-11 20:43:00 65.772 kg Universi ty of [place] [facility] BMI 2022-05-11 20:43:00 26.52 kg/m2 Universi ty of [place] [facility] Systolic blood 2022-04-04 12:00:00 130 mm[Hg] Univer sity of pressure [place] [facility] Diastolic blood 2022-04-04 12:00:00 75 mm[Hg] Unive rsity of pressure [place] [facility] Heart rate 2022-04-04 12:00:00 69 /min Universi ty of [place] [facility] Respiratory rate 2022-04-04 12:00:00 17 /min Univ ersity of [place] [facility] Oxygen saturation in 2022-04-04 12:00:00 95 /min University of Arterial blood by [place] [facility] theron Pulse oximetry Branch Body temperature 2022-04-04 09:00:00 37.28 Anila Univ ersity of [place] [facility] Systolic blood 2021-12-06 17:00:00 134 mm[Hg] Univer sity of pressure [facility] [place] [facility] Diastolic blood 2021-12-06 17:00:00 77 mm[Hg] Unive rsity of pressure [place] [facility] Heart rate 2021-12-06 17:00:00 62 /min Universi ty of [place] [facility] Respiratory rate 2021-12-06 17:00:00 16 /min Univ ersity of [place] [facility] Oxygen saturation in 2021-12-06 17:00:00 98 /min University of Arterial blood by [place] [facility] Pulse oximetry Branch Body temperature 2021-12-06 14:17:00 37.28 Anila Univ ersity of [place] [facility] Body weight 2021-12-06 14:17:00 65.772 kg Universi ty [facility] [place] [facility] BMI 2021-12-06 14:17:00 26.52 kg/m2 Universi ty [facility] [place] [facility] Systolic blood 2021-12-06 08:13:00 141 mm[Hg] Univer sity of pressure [place] [facility] Diastolic blood 2021-12-06 08:13:00 69 mm[Hg] Unive rsity of pressure [place] [facility] Oxygen saturation in 2021-12-06 08:13:00 98 /min University of Arterial blood by [place] [facility] theron Pulse oximetry Branch Heart rate 2021-12-06 07:00:00 74 /min Universi ty of [place] [facility] Respiratory rate 2021-12-06 07:00:00 18 /min [facility] Body temperature 2021-12-06 03:56:00 36.61 Anila [facility] Body height 2021-12-06 03:56:00 157.5 cm [facility] Body weight 2021-12-06 03:56:00 65.772 kg [facility] BMI 2021-12-06 03:56:00 26.52 kg/m2 [facility] Procedures Procedure Date / Time Performing Clinician Source Performed ASSIGNMENT OF BENEFITS 2023-01-21 16:31:02 Doctor Unassigned, No [facility] POCT GLUCOSE (AUTOMATED) 2023-01-04 03:43:00 Charlette Holloway [facility] POCT GLUCOSE (AUTOMATED) 2023-01-04 03:03:00 Charlette Holloway [facility] CT ABDOMEN PELVIS W 2023-01-04 02:44:37 [facility] CONTRAST [facility] LIPASE 2023-01-04 02:10:00 Charlette Holloway [facility] COMP. METABOLIC PANEL 2023-01-04 02:10:00 Charlette Holloway [facility] ([id number]) [facility] CBC WITH DIFF 2023-01-04 02:10:00 Charlette Holloway [facility] URINALYSIS 2023-01-04 02:10:00 Charlette Holloway [facility] CONSENT/REFUSAL FOR 2023-01-04 01:25:15 Doctor Unassigned, No [facility] DIAGNOSIS AND TREATMENT [facility] TROPONIN I 2022-12-10 23:09:00 Jonathan Baez [facility] COMP. METABOLIC PANEL 2022-12-10 23:09:00 Jonathan Baez [facility] ([id number]) [facility] CBC WITH DIFF 2022-12-10 23:09:00 Jonathan Baez [facility] PROTHROMBIN TIME / INR 2022-12-10 23:09:00 Jonathan Baez [facility] ACTIVATED PARTIAL 2022-12-10 23:09:00 Jonathan Baez [facility] THRMPLAS SUNIL [facility] RAPID INFLUENZA A/B 2022-12-10 23:09:00 Jonathan Baez [facility] ty [facility] N-TERMINAL PRO-BNP 2022-12-10 23:09:00 Jonathan Baez [facility] COVID-19 (ID NOW RAPID 2022-12-10 23:09:00 Jonathan Baez [facility] TESTING) [facility] XR CHEST 1 VW 2022-12-10 23:04:00 Jonathan Baez [facility] POCT GLUCOSE (AUTOMATED) 2022-11-30 12:09:00 [facility] 2022-11-30 11:57:00 Jenny Burch [facility] CT ABDOMEN PELVIS W 2022-11-30 10:46:34 Jenny Burch [facility] CONTRAST [facility] EKG-12 LEAD 2022-11-30 10:04:36 Jenny Burch [facility] LIPASE 2022-11-30 09:57:00 Jenny Burch [facility] TROPONIN I 2022-11-30 09:57:00 Jenny Burch [facility] COMP. METABOLIC PANEL 2022-11-30 09:57:00 Jenny Burch [facility] ([id number]) [facility] CBC WITH DIFF 2022-11-30 09:57:00 Jenny Burch [facility] POCT GLUCOSE (AUTOMATED) 2022-11-30 09:51:00 Doctor Unassigned, No [facility] POCT GLUCOSE (AUTOMATED) 2022-11-04 02:29:00 Kobe Valencia [facility] TROPONIN I 2022-11-04 00:53:00 Kobe Valencia [facility] BASIC METABOLIC PANEL 2022-11-04 00:53:00 Kobe Valencia [facility] (NA, K, CL, CO2, Medical Branch GLUCOSE, BUN, CREATININE, CA) CBC WITH DIFF 2022-11-04 00:53:00 Kobe Valecnia [facility] URINALYSIS 2022-11-04 00:53:00 Kobe Valencia [facility] POCT GLUCOSE (AUTOMATED) 2022-11-04 00:46:00 Kobe Valencia [facility] NOTICE OF PRIVACY 2022-11-03 22:47:19 Doctor Unassigned, No Univ [facility] PRACTICES Name [facility] CONSENT/REFUSAL FOR 2022-11-03 22:46:47 Doctor Unassigned, No [facility]RE[facility] Name [facility] URINALYSIS 2022-10-28 23:37:00 Jane Kyle [facility] XR CHEST 1 VW 2022-10-28 23:01:06 Jane Kyle [facility] LIPASE 2022-10-28 21:52:00 Jane Kyle [facility] MAGNESIUM 2022-10-28 21:52:00 Jane Kyle [facility] TROPONIN I 2022-10-28 21:52:00 Jane Kyle [facility] COMP. METABOLIC PANEL 2022-10-28 21:52:00 Jane Kyle [facility] ([id number]) [facility] CBC WITH DIFF 2022-10-28 21:52:00 Jane Kyle [facility] RAPID STREP SCREEN FOR 2022-10-28 21:47:00 Jane Kyle [facility] A [facility] RAPID INFLUENZA A/B 2022-10-28 21:47:00 Jane Kyle [facility] CONSENT/REFUSAL FOR 2022-10-01 21:40:59 Doctor Unassigned, No [facility] POCT GLUCOSE(AGE 2022-09-16 00:56:00 Jane Kyle [facility] >30DAYS) [facility] POCT GLUCOSE (AUTOMATED) 2022-09-16 00:54:00 Jane Kyle [facility] CT ABDOMEN PELVIS W 2022-09-15 23:22:40 Jane Kyle [facility] CONTRAST [facility] LIPASE 2022-09-15 21:53:00 Amadou Doty [facility] TROPONIN I 2022-09-15 21:53:00 Jane Kyle [facility] COMP. METABOLIC PANEL 2022-09-15 21:53:00 Amadou Doty [facility] ([id number]) [facility] [place] CBC WITH DIFF 2022-09-15 21:53:00 Amadou Doty [facility] URINALYSIS 2022-09-15 21:53:00 Amadou Doty [facility] POCT GLUCOSE (AUTOMATED) 2022-08-21 01:57:00 Jaylyn [facility] BASIC METABOLIC PANEL 2022-08-21 01:15:00 Xiomara Hernandez [facility] (NA, K, CL, CO2, Medical Branch GLUCOSE, BUN, CREATININE, CA) CBC WITH DIFF 2022-08-21 01:15:00 Jaylyn [facility] CT ABDOMEN PELVIS W 2022-07-13 22:19:12 Argelia Carson [facility] CONTRAST [facility] LIPASE 2022-07-13 20:55:00 Charlette Holloway [facility] MAGNESIUM 2022-07-13 20:55:00 Charlette Holloway [facility] COMP. METABOLIC PANEL 2022-07-13 20:55:00 Charlette Holloway [facility] ([id number]) [facility] CBC WITH DIFF 2022-07-13 20:55:00 Charlette Holloway [facility] URINALYSIS 2022-07-13 20:55:00 Charlette Holloway [facility] POCT GLUCOSE (AUTOMATED) 2022-05-11 22:54:00 Jc Mirza [facility] POCT GLUCOSE (AUTOMATED) 2022-05-11 22:16:00 Jc Mirza [facility] XR CHEST 1 VW 2022-05-11 21:12:40 Jc Mirza [facility] LIPASE 2022-05-11 21:10:00 Jc Mirza [facility] COMP. METABOLIC PANEL 2022-05-11 21:10:00 Jc Mirza [facility] ([id number]) Medical Branch CBC WITH DIFF 2022-05-11 21:10:00 Jc iMrza [facility] URINALYSIS 2022-05-11 21:10:00 Jc Mirza [facility] N-TERMINAL PRO-BNP 2022-05-11 21:10:00 Jc Mirza [facility] COVID-19 (ID NOW RAPID 2022-05-11 21:10:00 Jc Mirza [facility] TESTING) [facility] [place] POCT GLUCOSE (AUTOMATED) 2022-04-04 11:05:00 [facility] 2022-04-04 10:39:30 Minh Hartman [facility] URINE DRUG (IMMUNOASSAY) 2022-04-04 09:51:00 [facility] SCREEN URINALYSIS 2022-04-04 09:51:00 Minh Hartman [facility] RAPID INFLUENZA A/B 2022-04-04 09:51:00 Minh Hartman [facility] COVID-19 (ID NOW RAPID 2022-04-04 09:51:00 Minh Hartman [facility] TESTING) Medical Branch MAGNESIUM 2022-04-04 09:17:00 Minh Hartman [facility] COMP. METABOLIC PANEL 2022-04-04 09:17:00 Minh Hartman [facility] ([id number]) [facility] [place] CBC WITH DIFF 2022-04-04 09:17:00 Minh Hartman [facility] POCT GLUCOSE (AUTOMATED) 2022-04-04 09:01:00 [facility] NOTICE OF PRIVACY 2022-04-04 08:54:31 Doctor Unassigned, No [facility] PRACTICES Name Medical Branch CONSENT/REFUSAL FOR 2022-04-04 08:54:09 Doctor Unassigned, No [facility] [place] DIAGNOSIS AND TREATMENT Name Medical Branch XR CHEST 1 VW 2021-12-06 16:10:54 Jonathan Baez [facility] CT ABDOMEN PELVIS W 2021-12-06 16:03:48 Jonathan Baez [facility] CONTRAST [facility] CT HEAD WO CONTRAST 2021-12-06 16:03:29 Jonathan Baez [facility] URINALYSIS 2021-12-06 15:17:00 Jonathan Baez [facility] URINE DRUG (IMMUNOASSAY) 2021-12-06 15:17:00 Jonathan Baez [facility] DRUG [facility] SCREEN W/O REFLEX COVID-19 (ID NOW RAPID 2021-12-06 14:33:00 Jonathan Baez [facility] TESTING) [facility] AC PANEL 21 + LACTIC 2021-12-06 14:32:00 Jonathan Baez [facility] ACID [facility] PROTHROMBIN TIME / INR 2021-12-06 14:31:00 Jonathan Baez [facility] ACTIVATED PARTIAL 2021-12-06 14:31:00 Jonathan Baez [facility] THRMPLAS SUNIL [facility] N-TERMINAL PRO-BNP 2021-12-06 14:31:00 Jonathan Baez [facility] TROPONIN I 2021-12-06 14:31:00 Jonathan Baez [facility] COMP. METABOLIC PANEL 2021-12-06 14:31:00 Jonathan Baez [facility] ([id number]) [facility] SALICYLATE 2021-12-06 14:31:00 Jonathan Baez [facility] ETHANOL 2021-12-06 14:31:00 Jonathan Baez [facility] CBC WITH DIFF 2021-12-06 14:31:00 Jonathan Baez [facility] EKG-12 LEAD 2021-12-06 08:02:36 Minh Hartman [facility] LIPASE 2021-12-06 05:07:00 Minh Hartman [facility] TROPONIN I 2021-12-06 05:07:00 Minh Hartman [facility] COMP. METABOLIC PANEL 2021-12-06 05:07:00 Minh Hartman [facility] ([id number]) [facility] CBC WITH DIFF 2021-12-06 04:20:00 Minh Hartman [facility] Encounters Start End Encounter Admission Attending Care Care Encounter Source Date/Time Date/Time Type Type Clinicians Facility Department ID 2023-01-25 [facility] [id number] Univers 16:07:35 MIREYA ity [facility] 2023-04-22 2023-04-22 [facility] [id number] Univers 11:00:00 11:00:00 [facility] 2023-01-21 2023-01-21 [facility], [facility] 1.2.840.114 [id number] Univers 13:15:00 13:30:00 Visit Mireya Centeno SPECIALTY [id number] [place] [id number] Ok jordan FORREST 353 [facility] 2023-01-21 2023-01-21 [facility] [id number] Univers 11:00:00 11:30:00 Visit Mireya SPECIALTY [id number] [place] [id number] Ok jordan FORREST 072 [facility] 2023-01-21 2023-01-21 Outpatient Helen [facility] [id number] Univers 11:00:00 11:00:00 MIREYA ity [facility] 2023-01-21 2023-01-21 Orders Doctor MAURICE [id number] Univers 00:00:00 00:00:00 Only Unassigned, DAWSON 350.1.13.10 ity of [place] [facility] 4.2.7.2.686 Sai as [id number] [facility] [address] [place] 2023-01-03 2023-01-03 Emergency X AMIE [facility] ERT [id number] Univers 19:52:00 21:57:00 CHARLETTE ity [facility] 2023-01-03 2023-01-03 Emergency [facility] [id number] Univers 19:52:00 21:57:00 Charlette WALLACE [id number] ity [facility] [id number] [facility] [id number] [address] 2022-12-10 2022-12-10 Emergency [facility] [id number] Univers 16:18:00 18:56:00 JONATHAN itester [facility] 2022-12-10 2022-12-10 Emergency [facility] [id number] Univers 16:18:00 18:56:00 Jonathan WALLACE 350.1.13.10 i ty of [place] 4.2[address] [place] [address] [id number] 2022-11-30 2022-11-30 Emergency [facility]RT [id number] Univers 03:53:00 06:45:00 JENNY ity [facility] 2022-11-30 2022-11-30 Emergency [facility] [id number] Univers 03:53:00 06:45:00 Jenny WALLACE 350.1.13.10 ity [facility] 4.2.7.2.[address] [place] [id number] 2022-11-03 2022-11-03 Emergency [facility] ERT [id number] Univers 17:03:00 20:37:00 KOBE [facility] 2022-11-03 2022-11-03 Emergency [facility] [id number] Univers 17:03:00 20:37:00 Kobe WALLACE 350.1.13.10 i ty of [place] 4.2.7.[address] [place] [id number] 2022-10-28 2022-10-28 Emergency X Jane KYLE [facility] ERT [id number] Univers 15:53:00 20:50:00 ity [facility] 2022-10-28 2022-10-28 Emergency Jenny Burch [facility] 1.2.840 .114 [id number] Univers 15:53:00 20:50:00 Jane Kyle 350.1.13.10 ity [facility] 4.2.7.2.686 [facility] [id number] [address] 2022-10-01 2022-10-01 Emergency X RIDDLE, [facility] ERT [id number] Univers 16:52:00 17:11:00 CHRISTOPHER it y of [facility] 2022-10-01 2022-10-01 Emergency [place], [facility] [id number] Univers 16:52:00 17:11:00 Christmarie WALLACE 350.1.13.10 ity [facility] 4.2.7.2.686 [facility] [id number] [address] 2022-09-15 2022-09-15 Emergency X Jane KYLE [facility] ERT [id number] Univers 16:35:00 20:25:00 ity of [facility] 2022-09-15 2022-09-15 Emergency Sherwin Jane [facility] 1.2.840.114 [id number] Univers 16:35:00 20:25:00 Lana WALLACE 350.1.13.10 i ty of [place] 4.2.7.2.686 [facility] [id number] [address] 2022-08-20 2022-08-20 Emergency X RIDDLE, [facility] ERT [id number] Univers 20:04:00 21:53:00 CHRISTOPHER it y of [facility] 2022-08-20 2022-08-20 Emergency [place], [facility] [id number] Univers 20:04:00 21:53:00 Christopher RODRIGO 350.1.13.10 ity [facility] 4.2.7.2.686 [facility] [id number] [address] 2022-07-13 2022-07-13 Emergency X CARSON, [facility] ERT [id number] Univers 15:46:00 18:03:00 ARGELIA amaya [facility] 2022-07-13 2022-07-13 Emergency [facility] 1.2.840.114 [id number] Univers 15:46:00 18:03:00 Argelia WALLACE 350.1.13.10 i ty of [place] 4.2.7.2.686 [facility] [id number] [address] 2022-05-11 2022-05-11 Emergency X [facility] ERT [id number] Univers 15:46:00 18:31:00 JC amaya [facility] 2022-05-11 2022-05-11 Emergency [facility] [id number] Univers 15:46:00 18:31:00 Jc WALLACE 350.1.13.10 i ty of [place] 4.2.7.2.686 [facility] [id number] [address] 2022-04-04 2022-04-04 Emergency X [facility] ERT [id number] Univers 03:54:00 07:11:00 MINH amaya [facility] 2022-04-04 2022-04-04 Emergency [facility] [id number] Univers 03:54:00 07:11:00 Minh WALLACE 350.1.13.10 ity of [place] 4.2.7.2.[address] [place] [id number] 2021-12-06 2021-12-06 Emergency X [facility] ERT [id number] Univers 08:20:00 11:48:00 JONATHAN amaya [facility] 2021-12-06 2021-12-06 Emergency [facility] [id number] Univers 08:20:00 11:48:00 Jonathan WALLACE 350.1.13.10 i ty of [place] 4.2.7.2.686 [facility] [id number] [address] 2021-12-05 2021-12-06 Emergency X [facility] ERT [id number] Univers 22:30:00 02:18:00 MINH [facility] 2021-12-05 2021-12-06 Emergency Minnie [facility] [id number] Univers 22:30:00 02:18:00 Minh WALLACE 350.1.13.10 itVannessaBANNER 4.2.7.2.686 [facility] [id number] [place] [address] [place] Results Test Description Test Time Test Comments Results Result Comments Source POCT GLUCOSE (AUTOMATED) 2023-01-04 03:45:41 Test Item Value Reference Range Interpretation Comme nts POCT GLU (test code = 8936500469) 324 mg/dL 70-110 H Notified Provider Lab Interpretation (test code = 09500-8) Abnormal [facility] GLUCOSE (AUTOMATED)2023-01-04 03:09:17 Test Item Value Reference Range Interpretation Comments POCT GLU (test code = 4642025195) 464 mg/dL 70-110 HH Lab Interpretation (test code = Abnormal 96669-1) [facility] GLUCOSE (AUTOMATED)2022-11-30 12:11:43 Test Item Value Reference Range Interpretation Comments POCT GLU (test code = 0518707297) 223 mg/dL 70-110 H Lab Interpretation (test code = Abnormal 15832-2) [facility] [id number] 10:28:35 Test Item Value Reference Interpretation Comments Range TROPONIN I (test 0.001 ng/mL See_Comment [Automated code = 6333064093) message] The system which generated this result transmitted reference range : <=0.034. The reference range was not used to interpret this result as normal/abnormal . RUSS (test code = Reference (Normal) RUSS) Range (defined by the 99th percentile reference limit): <= 0.034 ng/mL Note: Cardiac troponin begins to rise 3-4 hours after the onset of ischemia. Repeat in 4-6 hours if the sample was drawn within 3-4 hours of the onset of the symptom and found normal. Diagnosis of myocardial injury is made with acute changes in cTn concentrations with at least one serial sample above the 99th percentile upper reference limit (URL), taken together with the patient's clinical presentation. Biotin has been reported to cause a negative bias, interpret results relative to patient's use of biotin. Lab Interpretation Normal (test code = 29338-7) [facility]. METABOLIC PANEL (95583)2022-11-30 10:16:54 Test Item Value Reference Range Interpretation Comments NA (test code = 132 mmol/L 135-145 L 7535803062) K (test code = 3.9 mmol/L 3.5-5.0 4029021501) CL (test code = 98 mmol/L 98-108 7806119565) CO2 TOTAL (test code = 27 mmol/L 23-31 3772336082) AGAP (test code = 2-16 6370908079) BUN (test code = 14 mg/dL 7-23 2361803695) GLUCOSE (test code = 282 mg/dL 70-110 H 1091599675) CREATININE (test code = 0.69 mg/dL 0.50-1.04 6400286179) TOTAL BILI (test code = 0.5 mg/dL 0.1-1.0 6919114082) CALCIUM (test code = 8.7 mg/dL 8.6-10.6 0163241073) T PROTEIN (test code = 7.0 g/dL 6.3-8.2 3058394213) ALBUMIN (test code = 4.1 g/dL 3.5-5.0 1845308432) ALK PHOS (test code = 135 U/L 34-122 H 2765576517) ALTv (test code = 52 U/L 5-35 H 1742-6) AST(SGOT) (test code = 30 U/L 13-40 5092318175) eGFR (test code = mL/min/1.73m2 9494022785) RUSS (test code = RUSS) Association of Glomerular Filtration Rate (GFR) and Staging of Kidney Disease* + --+ --+ ------+| GFR (mL/min/1.73 m2) ?| With Kidney Damage ?| ?Without Kidney Damage+ --------+ --------+ +| ?>90 ?| ?Stage one ?| ? Normal ?+ ---+ ---+ -------+| ?60-89 ?| ?Stage two ?| ? Decreased GFR ? + --+ --+ ------+| ?30-59 ?| ?Stage three ?| ? Stage three ? + --+ --+ ------+| ?15-29 ?| ?Stage four ? | ? Stage four ?+ ---+ ---+ -------+| ?<15 (or dialysis) ? ?| ?Stage five ? | ? Stage five ?+ ---+ ---+ -------+ *Each stage assumes the associated GFR level has been in effect for at least three months. ?Stages 1 to 5, with or without kidney disease, indicate chronic kidney disease. Notes: Determination of stages one and two (with eGFR >59mL/min/1.73 m2) requires estimation of kidney damage for at least three months as defined by structural or functional abnormalities of the kidney, manifested by either:Pathological abnormalities or Markers of kidney damage (including abnormalities in the composition of the blood or urine or abnormalities in imaging tests). Lab Interpretation Abnormal (test code = 50957-9) [facility]16:34 Test Item Value Reference Range Interpretation Comments LIPASE (test code = 2023707680) 120 U/L 0-220 Lab Interpretation (test code = Normal 48066-9) [facility] WITH [id number] 10:08:14 Test Item Value Reference Range Interpretation Comments WBC (test code = See_Comment [Automated 8290-2) message] The sy stem which generated this result transmitted reference range : 4.30 - 11.10 10*3/?L. The reference range was not used to interpret this result as normal/abnormal . RBC (test code = See_Comment [Automated 936-8) message] The sy stem which generated this result transmitted reference range : 3.93 - 5.25 10*6/?L. The reference range was not used to interpret this result as normal/abnormal . HGB (test code = 13.0 g/dL 11.6-15.0 718-7) HCT (test code = 37.3 % 35.7-45.2 4544-3) MCV (test code = 85.9 fL 80.6-95.5 787-2) MCH (test code = 30.0 pg 25.9-32.8 785-6) MCHC (test code = 34.9 g/dL 31.6-35.1 786-4) RDW-SD (test code = 37.2 fL 39.0-49.9 L 11885-7) RDW-CV (test code = 11.8 % 12.0-15.5 L 788-0) PLT (test code = See_Comment L [Automated 777-3) message] The sy stem which generated this result transmitted reference range : 166 - 358 10*3/ ?L. The reference r felix was not used to interpret this result as normal/abnormal . MPV (test code = 10.2 fL 9.5-12.9 20296-3) NRBC/100 WBC (test See_Comment [Automat ed code = 2903700635) message] The system which generated this result transmitted reference range : 0.0 - 10.0 /100 WBCs. The refer ence range was not u sed to interpret th is result as normal/abnormal . NRBC x10^3 (test code See_Comment [Auto mated = 0299438732) message] The s ystem which generated this result transmitted reference range : 10*3/?L. The reference range was not used to interpret this result as normal/abnormal . GRAN MAT (NEUT) % 58.2 % (test code = 770-8) IMM GRAN % (test code 0.20 % = 0695949558) LYMPH % (test code = 30.8 % 736-9) MONO % (test code = 7.2 % 5905-5) EOS % (test code = 3.0 % 713-8) BASO % (test code = 0.6 % 706-2) GRAN MAT x10^3(ANC) 3.06 10*3/uL 1.88-7.09 (test code = 5384729275) IMM GRAN x10^3 (test 0.00-0.06 code = 0725600105) LYMPH x10^3 (test code 1.62 10*3/uL 1.32-3.29 = 731-0) MONO x10^3 (test code 0.38 10*3/uL 0.33-0.92 = 742-7) EOS x10^3 (test code = 0.16 10*3/uL 0.03-0.39 711-2) BASO x10^3 (test code 0.03 10*3/uL 0.01-0.07 = 704-7) Lab Interpretation Abnormal (test code = 59497-7) [facility] GLUCOSE (AUTOMATED)2022-11-30 09:54:04 Test Item Value Reference Range Interpretation Comments POCT GLU (test code = 0356907441) 298 mg/dL 70-110 H Lab Interpretation (test code = Abnormal 59762-6) [facility] GLUCOSE (AUTOMATED)2022-11-04 02:36:44 Test Item Value Reference Range Interpretation Comments POCT GLU (test code = 8357790502) 222 mg/dL 70-110 H Lab Interpretation (test code = Abnormal 10869-7) [facility] METABOLIC PANEL (NA, K, CL, CO2, GLUCOSE, BUN, CREATININE, CA)2022-11-04 01:52:55 Test Item Value Reference Range Interpretation Comments NA (test code = 136 mmol/L 135-145 4761504058) K (test code = 4.2 mmol/L 3.5-5.0 7233282176) CL (test code = 102 mmol/L 98-108 9211674978) CO2 TOTAL (test code = 24 mmol/L 23-31 7322554680) AGAP (test code = 2-16 1989162216) BUN (test code = 18 mg/dL 7-23 0454570270) GLUCOSE (test code = 478 mg/dL 70-110 HH 7348287437) CREATININE (test code = 0.71 mg/dL 0.50-1.04 9509500884) CALCIUM (test code = 9.6 mg/dL 8.6-10.6 9324283209) eGFR (test code = mL/min/1.73m2 6838384573) RUSS (test code = RUSS) Association of Glomerular Filtration Rate (GFR) and Staging of Kidney Disease* + --+ --+ ------+| GFR (mL/min/1.73 m2) ?| With Kidney Damage ?| ?Without Kidney Damage+ --------+ --------+ +| ?>90 ?| ?Stage one ?| ? Normal ?+ ---+ ---+ -------+| ?60-89 ?| ?Stage two ?| ? Decreased GFR ? + --+ --+ ------+| ?30-59 ?| ?Stage three ?| ? Stage three ? + --+ --+ ------+| ?15-29 ?| ?Stage four ? | ? Stage four ?+ ---+ ---+ -------+| ?<15 (or dialysis) ? ?| ?Stage five ? | ? Stage five ?+ ---+ ---+ -------+ *Each stage assumes the associated GFR level has been in effect for at least three months. ?Stages 1 to 5, with or without kidney disease, indicate chronic kidney disease. Notes: Determination of stages one and two (with eGFR >59mL/min/1.73 m2) requires estimation of kidney damage for at least three months as defined by structural or functional abnormalities of the kidney, manifested by either:Pathological abnormalities or Markers of kidney damage (including abnormalities in the composition of the blood or urine or abnormalities in imaging tests). Lab Interpretation Abnormal (test code = 05209-0) [facility] [id number] 01:42:22 Test Item Value Reference Interpretation Comments Range TROPONIN I (test 0.001 ng/mL See_Comment [Automated code = 1845812427) message] The system which generated this result transmitted reference range : <=0.034. The reference range was not used to interpret this result as normal/abnormal . RUSS (test code = Reference (Normal) RUSS) Range (defined by the 99th percentile reference limit): <= 0.034 ng/mL Note: Cardiac troponin begins to rise 3-4 hours after the onset of ischemia. Repeat in 4-6 hours if the sample was drawn within 3-4 hours of the onset of the symptom and found normal. Diagnosis of myocardial injury is made with acute changes in cTn concentrations with at least one serial sample above the 99th percentile upper reference limit (URL), taken together with the patient's clinical presentation. Biotin has been reported to cause a negative bias, interpret results relative to patient's use of biotin. Lab Interpretation Normal (test code = 35085-1) [facility] WITH [id number] 01:24:19 Test Item Value Reference Range Interpretation Comments WBC (test code = See_Comment [Automated 6690-2) message] The sy stem which generated this result transmitted reference range : 4.30 - 11.10 10*3/?L. The reference range was not used to interpret this result as normal/abnormal . RBC (test code = See_Comment [Automated 789-8) message] The sy stem which generated this result transmitted reference range : 3.93 - 5.25 10*6/?L. The reference range was not used to interpret this result as normal/abnormal . HGB (test code = 13.2 g/dL 11.6-15.0 718-7) HCT (test code = 37.9 % 35.7-45.2 4544-3) MCV (test code = 86.7 fL 80.6-95.5 787-2) MCH (test code = 30.2 pg 25.9-32.8 785-6) MCHC (test code = 34.8 g/dL 31.6-35.1 786-4) RDW-SD (test code = 37.5 fL 39.0-49.9 L 10832-0) RDW-CV (test code = 11.9 % 12.0-15.5 L 788-0) PLT (test code = See_Comment [Automated 777-3) message] The sy stem which generated this result transmitted reference range : 166 - 358 10*3/ ?L. The reference r felix was not used to interpret this result as normal/abnormal . MPV (test code = 11.0 fL 9.5-12.9 52084-5) NRBC/100 WBC (test See_Comment [Automat ed code = 7105042261) message] The system which generated this result transmitted reference range : 0.0 - 10.0 /100 WBCs. The refer ence range was not u sed to interpret th is result as normal/abnormal . NRBC x10^3 (test code See_Comment [Auto mated = 7081765985) message] The s ystem which generated this result transmitted reference range : 10*3/?L. The reference range was not used to interpret this result as normal/abnormal . GRAN MAT (NEUT) % 68.9 % (test code = 770-8) IMM GRAN % (test code 0.50 % = 4439202602) LYMPH % (test code = 24.9 % 736-9) MONO % (test code = 4.5 % 5905-5) EOS % (test code = 0.8 % 713-8) BASO % (test code = 0.4 % 706-2) GRAN MAT x10^3(ANC) 5.01 10*3/uL 1.88-7.09 (test code = 0885926260) IMM GRAN x10^3 (test 0.04 10*3/uL 0.00-0.06 code = 1053509987) LYMPH x10^3 (test code 1.81 10*3/uL 1.32-3.29 = 731-0) MONO x10^3 (test code 0.33 10*3/uL 0.33-0.92 = 742-7) EOS x10^3 (test code = 0.06 10*3/uL 0.03-0.39 711-2) BASO x10^3 (test code 0.03 10*3/uL 0.01-0.07 = 704-7) Lab Interpretation Abnormal (test code = 72102-3) [facility] 00:50:24 Test Item Value Reference Range Interpretation Comments POCT GLU (test code = 2728855655) 452 mg/dL 70-110 HH Lab Interpretation (test code = Abnormal 65599-0) [facility] [id number] 22:41:10 Test Item Value Reference Interpretation Comments Range TROPONIN I (test 0.001 ng/mL See_Comment [Automated code = 3105025717) message] The system which generated this result transmitted reference range : <=0.034. The reference range was not used to interpret this result as normal/abnormal . RUSS (test code = Reference (Normal) RUSS) Range (defined by the 99th percentile reference limit): <= 0.034 ng/mL Note: Cardiac troponin begins to rise 3-4 hours after the onset of ischemia. Repeat in 4-6 hours if the sample was drawn within 3-4 hours of the onset of the symptom and found normal. Diagnosis of myocardial injury is made with acute changes in cTn concentrations with at least one serial sample above the 99th percentile upper reference limit (URL), taken together with the patient's clinical presentation. Biotin has been reported to cause a negative bias, interpret results relative to patient's use of biotin. Lab Interpretation Normal (test code = 40006-7) [facility] 22:30:04 Test Item Value Reference Range Interpretation Comments MAGNESIUM (test code = 4124749269) 1.5 mg/dL 1.7-2.4 L Lab Interpretation (test code = Abnormal 54151-5) [facility] METABOLIC PANEL (98467)2022-10-28 22:29:23 Test Item Value Reference Range Interpretation Comments NA (test code = 137 mmol/L 135-145 9602022242) K (test code = 4.2 mmol/L 3.5-5.0 6445426242) CL (test code = 101 mmol/L 98-108 7367337551) CO2 TOTAL (test code = 25 mmol/L 23-31 1244461075) AGAP (test code = 2-16 5429996733) BUN (test code = 14 mg/dL 7-23 1095237504) GLUCOSE (test code = 274 mg/dL 70-110 H 7938285104) CREATININE (test code = 0.65 mg/dL 0.50-1.04 8538695547) TOTAL BILI (test code = 0.3 mg/dL 0.1-1.3 8723566719) CALCIUM (test code = 9.5 mg/dL 8.6-10.6 3030532295) T PROTEIN (test code = 7.7 g/dL 6.3-8.2 5611415021) ALBUMIN (test code = 4.5 g/dL 3.5-5.0 4700256165) ALK PHOS (test code = 119 U/L 34-122 6758235614) ALTv (test code = 41 U/L 5-35 H 1742-6) AST(SGOT) (test code = 33 U/L 13-40 9334100684) eGFR (test code = mL/min/1.73m2 8329435014) RUSS (test code = RUSS) Association of Glomerular Filtration Rate (GFR) and Staging of Kidney Disease* + --+ --+ ------+| GFR (mL/min/1.73 m2) ?| With Kidney Damage ?| ?Without Kidney Damage+ --------+ --------+ +| ?>90 ?| ?Stage one ?| ? Normal ?+ ---+ ---+ -------+| ?60-89 ?| ?Stage two ?| ? Decreased GFR ? + --+ --+ ------+| ?30-59 ?| ?Stage three ?| ? Stage three ? + --+ --+ ------+| ?15-29 ?| ?Stage four ? | ? Stage four ?+ ---+ ---+ -------+| ?<15 (or dialysis) ? ?| ?Stage five ? | ? Stage five ?+ ---+ ---+ -------+ *Each stage assumes the associated GFR level has been in effect for at least three months. ?Stages 1 to 5, with or without kidney disease, indicate chronic kidney disease. Notes: Determination of stages one and two (with eGFR >59mL/min/1.73 m2) requires estimation of kidney damage for at least three months as defined by structural or functional abnormalities of the kidney, manifested by either:Pathological abnormalities or Markers of kidney damage (including abnormalities in the composition of the blood or urine or abnormalities in imaging tests). Lab Interpretation Abnormal (test code = 31258-5) [facility] 22:29:23 Test Item Value Reference Range Interpretation Comments LIPASE (test code = 1147051453) 210 U/L 0-220 Lab Interpretation (test code = Normal 82827-9) [facility] WITH [id number] 22:02:42 Test Item Value Reference Range Interpretation Comments WBC (test code = See_Comment [Automated 4916-2) message] The sy stem which generated this result transmitted reference range : 4.30 - 11.10 10*3/?L. The reference range was not used to interpret this result as normal/abnormal . RBC (test code = See_Comment [Automated 178-4) message] The sy stem which generated this result transmitted reference range : 3.93 - 5.25 10*6/?L. The reference range was not used to interpret this result as normal/abnormal . HGB (test code = 13.7 g/dL 11.6-15.0 718-7) HCT (test code = 39.8 % 35.7-45.2 4544-3) MCV (test code = 87.1 fL 80.6-95.5 787-2) MCH (test code = 30.0 pg 25.9-32.8 785-6) MCHC (test code = 34.4 g/dL 31.6-35.1 786-4) RDW-SD (test code = 37.4 fL 39.0-49.9 L 48660-4) RDW-CV (test code = 11.8 % 12.0-15.5 L 788-0) PLT (test code = See_Comment [Automated 777-3) message] The sy stem which generated this result transmitted reference range : 166 - 358 10*3/ ?L. The reference r felix was not used to interpret this result as normal/abnormal . MPV (test code = 10.4 fL 9.5-12.9 64165-2) NRBC/100 WBC (test See_Comment [Automat ed code = 9416974949) message] The system which generated this result transmitted reference range : 0.0 - 10.0 /100 WBCs. The refer ence range was not u sed to interpret th is result as normal/abnormal . NRBC x10^3 (test code See_Comment [Auto mated = 6581981204) message] The s ystem which generated this result transmitted reference range : 10*3/?L. The reference range was not used to interpret this result as normal/abnormal . GRAN MAT (NEUT) % 69.9 % (test code = 770-8) IMM GRAN % (test code 0.50 % = 3860885287) LYMPH % (test code = 23.8 % 736-9) MONO % (test code = 4.1 % 5905-5) EOS % (test code = 1.4 % 713-8) BASO % (test code = 0.3 % 706-2) GRAN MAT x10^3(ANC) 4.63 10*3/uL 1.88-7.09 (test code = 2108197689) IMM GRAN x10^3 (test 0.03 10*3/uL 0.00-0.06 code = 5397798876) LYMPH x10^3 (test code 1.57 10*3/uL 1.32-3.29 = 731-0) MONO x10^3 (test code 0.27 10*3/uL 0.33-0.92 L = 742-7) EOS x10^3 (test code = 0.09 10*3/uL 0.03-0.39 711-2) BASO x10^3 (test code 0.01-0.07 = 704-7) Lab Interpretation Abnormal (test code = 51840-9) [facility] GLUCOSE (AUTOMATED)2022-09-16 00:59:22 Test Item Value Reference Range Interpretation Comments POCT GLU (test code = 7691028591) 238 mg/dL 70-110 H Lab Interpretation (test code = Abnormal 35680-3) [facility] GLUCOSE(AGE >30DAYS)2022-09-16 00:56:00 Test Item Value Reference Range Interpretation Comments POCT Glu (age>30days) (test code = 238 mg/dL 70-110 3342) Lab Interpretation (test code = Normal 25838-1) [id number]:43[facility]37 Test Item Value Reference Interpretation Comments Range TROPONIN I (test 0.003 ng/mL See_Comment [Automated code = 2922996283) message] The system which generated this result transmitted reference range : <=0.034. The reference range was not used to interpret this result as normal/abnormal . RUSS (test code = Reference (Normal) RUSS) Range (defined by the 99th percentile reference limit): <= 0.034 ng/mL Note: Cardiac troponin begins to rise 3-4 hours after the onset of ischemia. Repeat in 4-6 hours if the sample was drawn within 3-4 hours of the onset of the symptom and found normal. Diagnosis of myocardial injury is made with acute changes in cTn concentrations with at least one serial sample above the 99th percentile upper reference limit (URL), taken together with the patient's clinical presentation. Biotin has been reported to cause a negative bias, interpret results relative to patient's use of biotin. Lab Interpretation Normal (test code = 30354-0) [facility] Met[facility] [id number] 22:35:37 Test Item Value Reference Range Interpretation Comments NA (test code = 137 mmol/L 135-145 0787694200) K (test code = 4.5 mmol/L 3.5-5 3607233519) CL (test code = 99 mmol/L 98-108 8684353911) CO2 TOTAL (test code = 23 mmol/L 23-31 7998317930) AGAP (test code = 2-16 2939644466) BUN (test code = 16 mg/dL 7-23 4377125972) GLUCOSE (test code = 405 mg/dL 70-110 H 9568653119) CREATININE (test code = 0.66 mg/dL 0.5-1.04 2003208074) TOTAL BILI (test code = 0.6 mg/dL 0.1-1.1 3471657697) CALCIUM (test code = 9.9 mg/dL 8.6-10.6 9716106997) T PROTEIN (test code = 8.8 g/dL 6.3-8.2 H 9795155865) ALBUMIN (test code = 4.9 g/dL 3.5-5 9429380008) ALK PHOS (test code = 164 U/L 34-122 H 3331365308) ALTv (test code = 88 U/L 5-35 H 1742-6) AST(SGOT) (test code = 51 U/L 13-40 H 1691035908) eGFR (test code = mL/min/1.73m2 3472895584) RUSS (test code = RUSS) Association of Glomerular Filtration Rate (GFR) and Staging of Kidney Disease* + --+ --+ ------+| GFR (mL/min/1.73 m2) ?| With Kidney Damage ?| ?Without Kidney Damage+ --------+ --------+ +| ?>90 ?| ?Stage one ?| ? Normal ?+ ---+ ---+ -------+| ?60-89 ?| ?Stage two ?| ? Decreased GFR ? + --+ --+ ------+| ?30-59 ?| ?Stage three ?| ? Stage three ? + --+ --+ ------+| ?15-29 ?| ?Stage four ? | ? Stage four ?+ ---+ ---+ -------+| ?<15 (or dialysis) ? ?| ?Stage five ? | ? Stage five ?+ ---+ ---+ -------+ *Each stage assumes the associated GFR level has been in effect for at least three months. ?Stages 1 to 5, with or without kidney disease, indicate chronic kidney disease. Notes: Determination of stages one and two (with eGFR >59mL/min/1.73 m2) requires estimation of kidney damage for at least three months as defined by structural or functional abnormalities of the kidney, manifested by either:Pathological abnormalities or Markers of kidney damage (including abnormalities in the composition of the blood or urine or abnormalities in imaging tests). Lab Interpretation Abnormal (test code = 56025-3) [facility] HospitalLip[facility], [id number] 22:34:57 Test Item Value Reference Range Interpretation Comments LIPASE (test code = 7252327954) 159 U/L 0-220 Lab Interpretation (test code = Normal 79567-7) [facility] with [id number] 22:11:31 Test Item Value Reference Range Interpretation Comments WBC (test code = See_Comment [Automated 5690-2) message] The sy stem which generated this result transmitted reference range : 4.30 - 11.10 10*3/?L. The reference range was not used to interpret this result as normal/abnormal . RBC (test code = See_Comment [Automated 499-8) message] The sy stem which generated this result transmitted reference range : 3.93 - 5.25 10*6/?L. The reference range was not used to interpret this result as normal/abnormal . HGB (test code = 14.2 g/dL 11.6-15 718-7) HCT (test code = 40.3 % 35.7-45.2 4544-3) MCV (test code = 88.6 fL 80.6-95.5 787-2) MCH (test code = 31.2 pg 25.9-32.8 785-6) MCHC (test code = 35.2 g/dL 31.6-35.1 H 786-4) RDW-SD (test code = 38.5 fL 39-49.9 L 37699-9) RDW-CV (test code = 12.0 % 12-15.5 788-0) PLT (test code = See_Comment L [Automated 477-3) message] The sy stem which generated this result transmitted reference range : 166 - 358 10*3/ ?L. The reference r felix was not used to interpret this result as normal/abnormal . MPV (test code = 10.7 fL 9.5-12.9 93715-0) NRBC/100 WBC (test See_Comment [Automat ed code = 6984807866) message] The system which generated this result transmitted reference range : 0.0 - 10.0 /100 WBCs. The refer ence range was not u sed to interpret th is result as normal/abnormal . NRBC x10^3 (test code See_Comment [Auto mated = 7396050040) message] The s ystem which generated this result transmitted reference range : 10*3/?L. The reference range was not used to interpret this result as normal/abnormal . GRAN MAT (NEUT) % 69.4 % (test code = 770-8) IMM GRAN % (test code 0.20 % = 3001599447) LYMPH % (test code = 22.6 % 736-9) MONO % (test code = 5.7 % 5905-5) EOS % (test code = 1.6 % 713-8) BASO % (test code = 0.5 % 706-2) GRAN MAT x10^3(ANC) 4.00 10*3/uL 1.88-7.09 (test code = 7703114704) IMM GRAN x10^3 (test 0-0.06 code = 6259411568) LYMPH x10^3 (test code 1.30 10*3/uL 1.32-3.29 L = 731-0) MONO x10^3 (test code 0.33 10*3/uL 0.33-0.92 = 742-7) EOS x10^3 (test code = 0.09 10*3/uL 0.03-0.39 711-2) BASO x10^3 (test code 0.03 10*3/uL 0.01-0.07 = 704-7) Lab Interpretation Abnormal (test code = 47684-5) [facility]22-08-21 02:00:19 Test Item Value Reference Range Interpretation Comments POCT GLU (test code = 516 mg/dL 70-110 HH Notifi ed Provider 0873106286) Lab Interpretation (test Abnormal code = 73557-5) [facility] GLUCOSE (AUTOMATED)2022-05-11 22:58:38 Test Item Value Reference Range Interpretation Comments POCT GLU (test code = 7599597357) 318 mg/dL 70-110 H Lab Interpretation (test code = Abnormal 64887-3) [facility] GLUCOSE (AUTOMATED)2022-05-11 22:21:13 Test Item Value Reference Range Interpretation Comments POCT GLU (test code = 5253359627) 344 mg/dL 70-110 H Lab Interpretation (test code = Abnormal 47778-3) [facility] [id number] 21:44:37 Test Item Value Reference Range Interpretation Comments NT-proBNP (test code 137 pg/mL See_Comment H [Autom ated = 2954979159) message] The system which generated this result transmitted reference range : <=125. The reference range was not used to interpret this result as normal/abnormal . RUSS (test code = RUSS) Biotin has been reported to cause a negative bias, interpret results relative to patient's use of biotin. Lab Interpretation Abnormal (test code = 40012-4) [facility]. METABOLIC PANEL (86331)2022-05-11 21:33:55 Test Item Value Reference Range Interpretation Comments NA (test code = 136 mmol/L 135-145 1256254671) K (test code = 3.9 mmol/L 3.5-5.0 0535700359) CL (test code = 99 mmol/L 98-108 0015492067) CO2 TOTAL (test code = 28 mmol/L 23-31 7910663659) AGAP (test code = 2-16 8390080491) BUN (test code = 16 mg/dL 7-23 8536161223) GLUCOSE (test code = 367 mg/dL 70-110 H 0868053067) CREATININE (test code = 0.60 mg/dL 0.50-1.04 2999673114) TOTAL BILI (test code = 0.8 mg/dL 0.1-1.9 9820097069) CALCIUM (test code = 9.8 mg/dL 8.6-10.6 7222959729) T PROTEIN (test code = 7.9 g/dL 6.3-8.2 9587023908) ALBUMIN (test code = 4.6 g/dL 3.5-5.0 7779976629) ALK PHOS (test code = 130 U/L 34-122 H 1870393460) ALTv (test code = 28 U/L 5-35 2-6) AST(SGOT) (test code = 36 U/L 13-40 9491640217) eGFR (test code = mL/min/1.73m2 3398951702) RUSS (test code = RUSS) Association of Glomerular Filtration Rate (GFR) and Staging of Kidney Disease* + --+ --+ ------+| GFR (mL/min/1.73 m2) ?| With Kidney Damage ?| ?Without Kidney Damage+ --------+ --------+ +| ?>90 ?| ?Stage one ?| ? Normal ?+ ---+ ---+ -------+| ?60-89 ?| ?Stage two ?| ? Decreased GFR ? + --+ --+ ------+| ?30-59 ?| ?Stage three ?| ? Stage three ? + --+ --+ ------+| ?15-29 ?| ?Stage four ? | ? Stage four ?+ ---+ ---+ -------+| ?<15 (or dialysis) ? ?| ?Stage five ? | ? Stage five ?+ ---+ ---+ -------+ *Each stage assumes the associated GFR level has been in effect for at least three months. ?Stages 1 to 5, with or without kidney disease, indicate chronic kidney disease. Notes: Determination of stages one and two (with eGFR >59mL/min/1.73 m2) requires estimation of kidney damage for at least three months as defined by structural or functional abnormalities of the kidney, manifested by either:Pathological abnormalities or Markers of kidney damage (including abnormalities in the composition of the blood or urine or abnormalities in imaging tests). Lab Interpretation Abnormal (test code = 44369-9) [facility] 21:33:55 Test Item Value Reference Range Interpretation Comments LIPASE (test code = 0967706532) 173 U/L 0-220 Lab Interpretation (test code = Normal 49653-6) [facility] WITH [id number] 21:24:34 Test Item Value Reference Range Interpretation Comments WBC (test code = See_Comment [Automated 6690-2) message] The sy stem which generated this result transmitted reference range : 4.30 - 11.10 10*3/?L. The reference range was not used to interpret this result as normal/abnormal . RBC (test code = See_Comment [Automated 789-8) message] The sy stem which generated this result transmitted reference range : 3.93 - 5.25 10*6/?L. The reference range was not used to interpret this result as normal/abnormal . HGB (test code = 14.4 g/dL 11.6-15.0 718-7) HCT (test code = 41.9 % 35.7-45.2 4544-3) MCV (test code = 86.4 fL 80.6-95.5 787-2) MCH (test code = 29.7 pg 25.9-32.8 785-6) MCHC (test code = 34.4 g/dL 31.6-35.1 786-4) RDW-SD (test code = 39.1 fL 39.0-49.9 65495-6) RDW-CV (test code = 12.4 % 12.0-15.5 788-0) PLT (test code = See_Comment [Automated 777-3) message] The sy stem which generated this result transmitted reference range : 166 - 358 10*3/ ?L. The reference r felix was not used to interpret this result as normal/abnormal . MPV (test code = 10.6 fL 9.5-12.9 21567-1) NRBC/100 WBC (test See_Comment [Automat ed code = 8724791657) message] The system which generated this result transmitted reference range : 0.0 - 10.0 /100 WBCs. The refer ence range was not u sed to interpret th is result as normal/abnormal . NRBC x10^3 (test code <0.01 See_Comment [Auto mated = 7353754050) message] The s ystem which generated this result transmitted reference range : 10*3/?L. The reference range was not used to interpret this result as normal/abnormal . GRAN MAT (NEUT) % 76.2 % (test code = 770-8) IMM GRAN % (test code 0.30 % = 5153338398) LYMPH % (test code = 16.7 % 736-9) MONO % (test code = 5.2 % 5905-5) EOS % (test code = 1.2 % 713-8) BASO % (test code = 0.4 % 706-2) GRAN MAT x10^3(ANC) 5.26 10*3/uL 1.88-7.09 (test code = 8449536595) IMM GRAN x10^3 (test <0.03 0.00-0.06 code = 1596162046) LYMPH x10^3 (test code 1.15 10*3/uL 1.32-3.29 L = 731-0) MONO x10^3 (test code 0.36 10*3/uL 0.33-0.92 = 742-7) EOS x10^3 (test code = 0.08 10*3/uL 0.03-0.39 711-2) BASO x10^3 (test code 0.03 10*3/uL 0.01-0.07 = 704-7) Lab Interpretation Abnormal (test code = 06573-3) [facility] 11:08:42 Test Item Value Reference Range Interpretation Comments POCT GLU (test code = 8746624112) 381 mg/dL 70-110 H Lab Interpretation (test code = Abnormal 82707-3) [facility] METABOLIC PANEL (62007)2022-04-04 10:16:12 Test Item Value Reference Range Interpretation Comments NA (test code = 131 mmol/L 135-145 L 6045878101) K (test code = 4.0 mmol/L 3.5-5.0 5878707385) CL (test code = 93 mmol/L 98-108 L 0576314153) CO2 TOTAL (test code = 23 mmol/L 23-31 7034474715) AGAP (test code = 2-16 6500642430) BUN (test code = 20 mg/dL 7-23 6441407819) GLUCOSE (test code = 566 mg/dL 70-110 HH 4160103743) CREATININE (test code = 0.76 mg/dL 0.50-1.04 8076947643) TOTAL BILI (test code = 0.9 mg/dL 0.1-1.1 6398799909) CALCIUM (test code = 9.5 mg/dL 8.6-10.6 2474413645) T PROTEIN (test code = 7.5 g/dL 6.3-8.2 4790750325) ALBUMIN (test code = 4.4 g/dL 3.5-5.0 2082724901) ALK PHOS (test code = 130 U/L 34-122 H 6138188297) ALTv (test code = 16 U/L 5-35 2-6) AST(SGOT) (test code = 22 U/L 13-40 6628768527) eGFR (test code = mL/min/1.73m2 7974489885) RUSS (test code = RUSS) Association of Glomerular Filtration Rate (GFR) and Staging of Kidney Disease* + --+ --+ ------+| GFR (mL/min/1.73 m2) ?| With Kidney Damage ?| ?Without Kidney Damage+ --------+ --------+ +| ?>90 ?| ?Stage one ?| ? Normal ?+ ---+ ---+ -------+| ?60-89 ?| ?Stage two ?| ? Decreased GFR ? + --+ --+ ------+| ?30-59 ?| ?Stage three ?| ? Stage three ? + --+ --+ ------+| ?15-29 ?| ?Stage four ? | ? Stage four ?+ ---+ ---+ -------+| ?<15 (or dialysis) ? ?| ?Stage five ? | ? Stage five ?+ ---+ ---+ -------+ *Each stage assumes the associated GFR level has been in effect for at least three months. ?Stages 1 to 5, with or without kidney disease, indicate chronic kidney disease. Notes: Determination of stages one and two (with eGFR >59mL/min/1.73 m2) requires estimation of kidney damage for at least three months as defined by structural or functional abnormalities of the kidney, manifested by either:Pathological abnormalities or Markers of kidney damage (including abnormalities in the composition of the blood or urine or abnormalities in imaging tests). Lab Interpretation Abnormal (test code = 56406-2) [facility]2022-05-07 09:55:58 Test Item Value Reference Range Interpretation Comments MAGNESIUM (test code = 4161825743) 1.7 mg/dL 1.7-2.4 Lab Interpretation (test code = Normal 66970-7) [facility] WITH [id number] 09:24:34 Test Item Value Reference Range Interpretation Comments WBC (test code = See_Comment [Automated 6690-2) message] The sy stem which generated this result transmitted reference range : 4.30 - 11.10 10*3/?L. The reference range was not used to interpret this result as normal/abnormal . RBC (test code = See_Comment [Automated 789-8) message] The sy stem which generated this result transmitted reference range : 3.93 - 5.25 10*6/?L. The reference range was not used to interpret this result as normal/abnormal . HGB (test code = 14.9 g/dL 11.6-15.0 718-7) HCT (test code = 41.7 % 35.7-45.2 4544-3) MCV (test code = 84.2 fL 80.6-95.5 787-2) MCH (test code = 30.1 pg 25.9-32.8 785-6) MCHC (test code = 35.7 g/dL 31.6-35.1 H 786-4) RDW-SD (test code = 36.8 fL 39.0-49.9 L 39379-1) RDW-CV (test code = 12.2 % 12.0-15.5 788-0) PLT (test code = See_Comment [Automated 777-3) message] The sy stem which generated this result transmitted reference range : 166 - 358 10*3/ ?L. The reference r felix was not used to interpret this result as normal/abnormal . MPV (test code = 10.4 fL 9.5-12.9 52530-6) NRBC/100 WBC (test See_Comment [Automat ed code = 9299277133) message] The system which generated this result transmitted reference range : 0.0 - 10.0 /100 WBCs. The refer ence range was not u sed to interpret th is result as normal/abnormal . NRBC x10^3 (test code <0.01 See_Comment [Auto mated = 0499857151) message] The s ystem which generated this result transmitted reference range : 10*3/?L. The reference range was not used to interpret this result as normal/abnormal . GRAN MAT (NEUT) % 64.5 % (test code = 770-8) IMM GRAN % (test code 0.50 % = 6493508162) LYMPH % (test code = 26.4 % 736-9) MONO % (test code = 6.4 % 5905-5) EOS % (test code = 1.6 % 713-8) BASO % (test code = 0.6 % 706-2) GRAN MAT x10^3(ANC) 4.01 10*3/uL 1.88-7.09 (test code = 6436929933) IMM GRAN x10^3 (test 0.03 10*3/uL 0.00-0.06 code = 5398135494) LYMPH x10^3 (test code 1.64 10*3/uL 1.32-3.29 = 731-0) MONO x10^3 (test code 0.40 10*3/uL 0.33-0.92 = 742-7) EOS x10^3 (test code = 0.10 10*3/uL 0.03-0.39 711-2) BASO x10^3 (test code 0.04 10*3/uL 0.01-0.07 = 704-7) Lab Interpretation Abnormal (test code = 94723-0) [facility] 09:04:45 Test Item Value Reference Range Interpretation Comments POCT GLU (test code = 6203535894) 532 mg/dL 70-110 HH Lab Interpretation (test code = Abnormal 41810-7) [facility] 16:39:21 Test Item Value Reference Range Interpretation Comments SALICYLATE (test code <10 mg/L = 8415725782) RUSS (test code = RUSS) Therapeutic Range: ? Analgesic and Antipyretic Use ? 20-100 mg/L ? ? Anti-Inflammatory Use ? 100-250 mg/L Toxic Range: ? Greater than 300 mg/L [facility]ACET[facility]INOPHEN2022-[facility]-08 16:39:06 Test Item Value Reference Range Interpretation Comments ACETAMINOP (test code = <10.0 10.0-30.0 L 5169086645) RUSS (test code = RUSS) Toxic: Greater than 200 ug/mL @ 4 hour post ingestion or greater than 50 ug/mL @ 12 hour post ingestion Lab Interpretation (test Abnormal code = 36956-0) [facility] 15:24:55 Test Item Value Reference Range Interpretation Comments ALCOHOL (test code = <10 mg/dL 8685003384) RUSS (test code = RUSS) <10 Ahmvsmle90-723 Toxic>100 Depression of [employer]>400 Fatalities Reported [facility]TR[facility] [id number] 15:20:39 Test Item Value Reference Interpretation Comments Range TROPONIN I (test 0.008 ng/mL See_Comment [Automated code = 5795070959) message] The system which generated this result transmitted reference range : <=0.034. The reference range was not used to interpret this result as normal/abnormal . RUSS (test code = Reference (Normal) RUSS) Range (defined by the 99th percentile reference limit): <= 0.034 ng/mL Note: Cardiac troponin begins to rise 3-4 hours after the onset of ischemia. Repeat in 4-6 hours if the sample was drawn within 3-4 hours of the onset of the symptom and found normal. Diagnosis of myocardial injury is made with acute changes in cTn concentrations with at least one serial sample above the 99th percentile upper reference limit (URL), taken together with the patient's clinical presentation. Biotin has been reported to cause a negative bias, interpret results relative to patient's use of biotin. Lab Interpretation Normal (test code = 68314-7) [facility] [id number] 15:17:38 Test Item Value Reference Range Interpretation Comments NT-proBNP (test code 51 pg/mL See_Comment [Autom ated = 5391886526) message] The system which generated this result transmitted reference range : <=125. The reference range was not used to interpret this result as normal/abnormal . RUSS (test code = RUSS) Biotin has been reported to cause a negative bias, interpret results relative to patient's use of biotin. Lab Interpretation Normal (test code = 90494-9) [facility]. METABOLIC PANEL (16291)2021-12-06 15:09:16 Test Item Value Reference Range Interpretation Comments NA (test code = 135 mmol/L 135-145 9783310401) K (test code = 4.1 mmol/L 3.5-5.0 0093814835) CL (test code = 99 mmol/L 98-108 2355336946) CO2 TOTAL (test code = 28 mmol/L 23-31 8359752172) AGAP (test code = 2-16 4670679707) BUN (test code = 17 mg/dL 7-23 2321606233) GLUCOSE (test code = 250 mg/dL 70-110 H 6877670045) CREATININE (test code = 0.77 mg/dL 0.50-1.04 2948874039) TOTAL BILI (test code = 0.5 mg/dL 0.1-1.2 4582801717) CALCIUM (test code = 9.4 mg/dL 8.6-10.6 2734855789) T PROTEIN (test code = 8.3 g/dL 6.3-8.2 H 3567685354) ALBUMIN (test code = 4.6 g/dL 3.5-5.0 5826795160) ALK PHOS (test code = 182 U/L 34-122 H 4465042319) ALTv (test code = 145 U/L 5-35 H 1742-6) AST(SGOT) (test code = 115 U/L 13-40 H 8806407488) eGFR (test code = mL/min/1.73m2 2052698692) RUSS (test code = RUSS) Association of Glomerular Filtration Rate (GFR) and Staging of Kidney Disease* + --+ --+ ------+| GFR (mL/min/1.73 m2) ?| With Kidney Damage ?| ?Without Kidney Damage+ --------+ --------+ +| ?>90 ?| ?Stage one ?| ? Normal ?+ ---+ ---+ -------+| ?60-89 ?| ?Stage two ?| ? Decreased GFR ? + --+ --+ ------+| ?30-59 ?| ?Stage three ?| ? Stage three ? + --+ --+ ------+| ?15-29 ?| ?Stage four ? | ? Stage four ?+ ---+ ---+ -------+| ?<15 (or dialysis) ? ?| ?Stage five ? | ? Stage five ?+ ---+ ---+ -------+ *Each stage assumes the associated GFR level has been in effect for at least three months. ?Stages 1 to 5, with or without kidney disease, indicate chronic kidney disease. Notes: Determination of stages one and two (with eGFR >59mL/min/1.73 m2) requires estimation of kidney damage for at least three months as defined by structural or functional abnormalities of the kidney, manifested by either:Pathological abnormalities or Markers of kidney damage (including abnormalities in the composition of the blood or urine or abnormalities in imaging tests). Lab Interpretation Abnormal (test code = 64182-2) [facility]ACT[facility] THRMPLAS [id number] 15:08:56 Test Item Value Reference Range Interpretation Comments APTT Patient (test See_Comment [Automat ed code = 3173-2) message] The system which generated this result transmitted reference range : 23 - 38 Seconds . The reference range was not used to interpr et this result as normal/abnormal . RUSS (test code = RUSS) [facility] patient population mean normal value for aPTT is 30 seconds. Lab Interpretation Normal (test code = 09431-0) [facility] HospitalPROTHROMBIN TIME / [id number] 15:06:55 Test Item Value Reference Range Interpretation Comments PROTIME PATIENT (test See_Comment [Auto mated message] code = 5964-2) The system wh ich generated this result transmitted ref erence range: 12.0 - 1 4.7 Seconds. The re ference range was not u sed to interpret this result as normal/abnor mal. INR (test code = 6301-6) Nor mal INR <1.1; Warfarin Therap eutic range 2.0 to 3. 0 or 2.5 to 3.5, dep ending upon the indica tions. Lab Interpretation (test Normal code = 74631-3) [id number] 14:52:54 Test Item Value Reference Range Interpretation Comments WBC (test code = See_Comment [Automated 6690-2) message] The sy stem which generated this result transmitted reference range : 4.30 - 11.10 10*3/?L. The reference range was not used to interpret this result as normal/abnormal . RBC (test code = See_Comment [Automated 789-8) message] The sy stem which generated this result transmitted reference range : 3.93 - 5.25 10*6/?L. The reference range was not used to interpret this result as normal/abnormal . HGB (test code = 13.6 g/dL 11.6-15.0 718-7) HCT (test code = 39.9 % 35.7-45.2 4544-3) MCV (test code = 89.3 fL 80.6-95.5 787-2) MCH (test code = 30.4 pg 25.9-32.8 785-6) MCHC (test code = 34.1 g/dL 31.6-35.1 786-4) RDW-SD (test code = 40.9 fL 39.0-49.9 51347-8) RDW-CV (test code = 12.5 % 12.0-15.5 788-0) PLT (test code = See_Comment L [Automated 777-3) message] The sy stem which generated this result transmitted reference range : 166 - 358 10*3/ ?L. The reference r felix was not used to interpret this result as normal/abnormal . MPV (test code = 10.3 fL 9.5-12.9 46754-6) NRBC/100 WBC (test See_Comment [Automat ed code = 1348828596) message] The system which generated this result transmitted reference range : 0.0 - 10.0 /100 WBCs. The refer ence range was not u sed to interpret th is result as normal/abnormal . NRBC x10^3 (test code <0.01 See_Comment [Auto mated = 5927620180) message] The s ystem which generated this result transmitted reference range : 10*3/?L. The reference range was not used to interpret this result as normal/abnormal . GRAN MAT (NEUT) % 70.2 % (test code = 770-8) IMM GRAN % (test code 0.20 % = 1739520755) LYMPH % (test code = 20.5 % 736-9) MONO % (test code = 6.9 % 5905-5) EOS % (test code = 1.7 % 713-8) BASO % (test code = 0.5 % 706-2) GRAN MAT x10^3(ANC) 4.08 10*3/uL 1.88-7.09 (test code = 2950976669) IMM GRAN x10^3 (test <0.03 0.00-0.06 code = 1894882903) LYMPH x10^3 (test code 1.19 10*3/uL 1.32-3.29 L = 731-0) MONO x10^3 (test code 0.40 10*3/uL 0.33-0.92 = 742-7) EOS x10^3 (test code = 0.10 10*3/uL 0.03-0.39 711-2) BASO x10^3 (test code 0.03 10*3/uL 0.01-0.07 = 704-7) Lab Interpretation Abnormal (test code = 66311-5) [facility] LACTIC [id number] 14:45:11 Test Item Value Reference Range Interpretation Comments PH (test code = 7.32-7.42 8261858356) PCO2 KINDRA (test code = See_Comment [Auto mated 1001359369) message] The sy stem which generated this result transmitted reference range : 41 - 51 mmHg. The reference range was not used to interpret this result as normal/abnormal . PO2 KINDRA (test code = See_Comment [Autom ated 3657642013) message] The sy stem which generated this result transmitted reference range : 25 - 40 mmHg. The reference range was not used to interpret this result as normal/abnormal . HCO3 KINDRA (test code = See_Comment [Auto mated 7205506293) message] The sy stem which generated this result transmitted reference range : 24 - 28 mEq/L. The reference range was not used to interpret this result as normal/abnormal . AC VBE(BEAKER) (test mEq/L code = 6532040764) THB KINDRA (test code = 13.8 g/dL 12.0-16.0 9745685326) %O2HB KINDRA (test code = 59.6 % 52.0-63.0 6763597319) %COHB KINDRA (test code = 1.8 % 0.0-1.5 H 6874261004) %METHB KINDRA (test code = 0.3 % 0.4-1.5 L 5641787457) VOL%O2 KINDRA (test code = 11.5 % 6.0-12.0 6275933189) NA (test code = 137 mmol/L 135-145 9917688542) K+ (test code = 4.2 mmol/L 3.5-5.0 6344627743) AC CA IONZ (test code = 4.60 mg/dL 4.50-5.30 8282673559) GLUCOSE (test code = 248 mg/dL 70-110 H 5101405137) LACTIC ACID (test code 1.79 mmol/L 0.50-2.20 = 7783405413) Lab Interpretation Abnormal (test code = 94730-0) [facility] Test Item Value Reference Range Interpretation Comments LIPASE (test code = 2147742505) 228 U/L 0-220 H Lab Interpretation (test code = Abnormal 74795-9) [facility] [id number] 05:59:12 Test Item Value Reference Interpretation Comments Range TROPONIN I (test 0.003 ng/mL See_Comment [Automated code = 1310490300) message] The system which generated this result transmitted reference range : <=0.034. The reference range was not used to interpret this result as normal/abnormal . RUSS (test code = Reference (Normal) RUSS) Range (defined by the 99th percentile reference limit): <= 0.034 ng/mL Note: Cardiac troponin begins to rise 3-4 hours after the onset of ischemia. Repeat in 4-6 hours if the sample was drawn within 3-4 hours of the onset of the symptom and found normal. Diagnosis of myocardial injury is made with acute changes in cTn concentrations with at least one serial sample above the 99th percentile upper reference limit (URL), taken together with the patient's clinical presentation. Biotin has been reported to cause a negative bias, interpret results relative to patient's use of biotin. Lab Interpretation Normal (test code = 17383-1) [facility] ([id number])2021-12-06 05:49:12 Test Item Value Reference Range Interpretation Comments NA (test code = 135 mmol/L 135-145 8988596161) K (test code = 4.4 mmol/L 3.5-5.0 6908367626) CL (test code = 101 mmol/L 98-108 3307112126) CO2 TOTAL (test code = 26 mmol/L 23-31 0199727317) AGAP (test code = 2-16 2371255160) BUN (test code = 15 mg/dL 7-23 5936426275) GLUCOSE (test code = 318 mg/dL 70-110 H 2092113993) CREATININE (test code = 0.70 mg/dL 0.50-1.04 6447763093) TOTAL BILI (test code = 0.5 mg/dL 0.1-1.5 2276394677) CALCIUM (test code = 9.3 mg/dL 8.6-10.6 8027371439) T PROTEIN (test code = 8.0 g/dL 6.3-8.2 2134048958) ALBUMIN (test code = 4.4 g/dL 3.5-5.0 8113526567) ALK PHOS (test code = 189 U/L 34-122 H 8387811638) ALTv (test code = 135 U/L 5-35 H 1742-6) AST(SGOT) (test code = 173 U/L 13-40 H 7441310287) eGFR (test code = mL/min/1.73m2 3986170000) RUSS (test code = RUSS) Association of Glomerular Filtration Rate (GFR) and Staging of Kidney Disease* + --+ --+ ------+| GFR (mL/min/1.73 m2) ?| With Kidney Damage ?| ?Without Kidney Damage+ --------+ --------+ +| ?>90 ?| ?Stage one ?| ? Normal ?+ ---+ ---+ -------+| ?60-89 ?| ?Stage two ?| ? Decreased GFR ? + --+ --+ ------+| ?30-59 ?| ?Stage three ?| ? Stage three ? + --+ --+ ------+| ?15-29 ?| ?Stage four ? | ? Stage four ?+ ---+ ---+ -------+| ?<15 (or dialysis) ? ?| ?Stage five ? | ? Stage five ?+ ---+ ---+ -------+ *Each stage assumes the associated GFR level has been in effect for at least three months. ?Stages 1 to 5, with or without kidney disease, indicate chronic kidney disease. Notes: Determination of stages one and two (with eGFR >59mL/min/1.73 m2) requires estimation of kidney damage for at least three months as defined by structural or functional abnormalities of the kidney, manifested by either:Pathological abnormalities or Markers of kidney damage (including abnormalities in the composition of the blood or urine or abnormalities in imaging tests). Lab Interpretation Abnormal (test code = 61609-3) [facility] WITH [id number] 04:44:46 Test Item Value Reference Range Interpretation Comments WBC (test code = See_Comment [Automated message] 6690-2) The system [employer] generated this result transmitted ref erence range: 4.30 - 1 1.10 10*3/?L. The re ference range was not u sed to interpret this result as normal/abnor mal. RBC (test code = See_Comment [Automated message] 789-8) The system [employer] generated this result transmitted ref erence range: 3.93 - 5 .25 10*6/?L. The re ference range was not u sed to interpret this result as normal/abnor mal. HGB (test code = 13.5 g/dL 11.6-15.0 718-7) HCT (test code = 39.0 % 35.7-45.2 4544-3) MCV (test code = 88.2 fL 80.6-95.5 787-2) MCH (test code = 30.5 pg 25.9-32.8 785-6) MCHC (test code = 34.6 g/dL 31.6-35.1 786-4) RDW-SD (test code 39.8 fL 39.0-49.9 = 96541-4) RDW-CV (test code 12.3 % 12.0-15.5 = 788-0) PLT (test code = See_Comment [Automated message] 777-3) The system whic h generated this result transmitted ref erence range: 166 - 35 8 10*3/?L. The re ference range was not u sed to interpret this result as normal/abnor mal. MPV (test code = 10.9 fL 9.5-12.9 29539-5) NRBC/100 WBC (test See_Comment [Automat ed message] code = 7250333925) The syste m which generated this result transmitted ref erence range: 0.0 - 10 .0 /100 WBCs. The refer ence range was not u sed to interpret this result as normal/abnor mal. NRBC x10^3 (test <0.01 See_Comment [Automated message] code = 9458398371) The syste m which generated this result transmitted ref erence range: 10*3/?L. The reference range was not used to interpr et this result as normal/abnormal . GRAN MAT (NEUT) % 64.7 % (test code = 770-8) IMM GRAN % (test 0.30 % code = 1172300067) LYMPH % (test code 25.5 % = 736-9) MONO % (test code 7.1 % = 5905-5) EOS % (test code = 1.9 % 713-8) BASO % (test code 0.5 % = 706-2) GRAN MAT 3.80 10*3/uL 1.88-7.09 x10^3(ANC) (test code = 1537570848) IMM GRAN x10^3 <0.03 0.00-0.06 (test code = 0752797188) LYMPH x10^3 (test 1.50 10*3/uL 1.32-3.29 code = 731-0) MONO x10^3 (test 0.42 10*3/uL 0.33-0.92 code = 742-7) EOS x10^3 (test 0.11 10*3/uL 0.03-0.39 code = 711-2) BASO x10^3 (test 0.03 10*3/uL 0.01-0.07 code = 704-7) [facility]"
[2023-07-17] MEDS ORDERED: ONDANSETRON 4 MG/2 ML VIAL ONE (16:16)
[2023-07-17] MEDS ORDERED: MORPHINE 2 MG/ML SYR ONE (16:16)
[2023-07-17] MEDS ORDERED: FAMOTIDINE 20 MG/2 ML VIAL IV ONE (16:17)
[2023-07-17] MEDS ORDERED: INSULIN -REGULAR HUMAN 50 UNIT/0.5 ML ML ONE (16:17)
[2023-07-17] MEDS ORDERED: NA CHLORIDE 0.9% 1,000 ML ONE ×2 (16:36→18:14)
--- NOTE | 2023-07-17 16:43 | RAD REPORT ---
EXAM DESCRIPTION: RADChest Single View07/17/2023 4:24 pm CLINICAL HISTORY: CHEST PAIN COMPARISON: Chest Single View dated 06/24/2023; Chest Single View dated 02/19/2023; Chest Pa And Lat ( 2 Views) dated 03/16/2017 TECHNIQUE: Portable AP view of the chest. FINDINGS: The lungs are clear. No pneumothorax or effusion. The cardiomediastinal contours are unrem arkable. IMPRESSION: No acute cardiopulmonary process.
[2023-07-17 16:50] LABS: Absolute Lymphocytes (CBC) 1.5 K/uL (0.7-4.9); Hematocrit 38.6 % (36.0-45.0); Lymphocytes % 21.3 % (15.3-44.8); MCV 89.5 fL (80-100); MPV 8.5 fL (7.6-11.3); Platelets 183 thou/uL (152-406); RBC Red Blood Cell Count 4.32 M/uL (3.86-4.86)
[2023-07-17 17:00] LABS: Protime INR 0.96
[2023-07-17 17:27] LABS: ALT/SGPT 43 U/L (13-56); AST/SGOT 21 U/L (15-37); Albumin 3.5 g/dL (3.4-5.0); Alkaline Phosphatase 141 U/L (45-117); BUN Blood Urea Nitrogen 22 mg/dL (7-18); Bicarbonate 27 mEq/L (21-32); Bilirubin Direct < 0.1 mg/dL (0-0.2); Bilirubin Indirect, Calculated ND mg/dL (0.2-0.8); Bilirubin Total 0.3 mg/dL (0.2-1.0); Glomerular Filtration Rate 36 ml/min (=/>90); Lipase 80 U/L (13-75); Magnesium 1.8 mg/dL (1.6-2.4); NT PRO-BNP 34 pg/mL (<125); Potassium 4.1 mEq/L (3.5-5.1); Protein, Total 7.3 g/dL (6.4-8.2); Sodium Level 131 mEq/L (136-145); Troponin High Sensitivity < 3.0 pg/mL (<58.9)
[2023-07-17 17:28] LABS: Glucose Level 545 mg/dL (74-106)
--- NOTE | 2023-07-17 18:25 | RAD REPORT ---
EXAM DESCRIPTION: CT - Head Brain Wo Cont - 07/17/2023 5:45 pm CLINICAL HISTORY: HEADACHE COMPARISON: Head Brain Wo Cont dated 04/27/2021; Head Brain Wo Cont dated 01/17/2021 TECHNIQUE: Noncontrast head CT images were obtained without IV contrast. Multiplanar reformats were generated and reviewed. All CT scans are performed using dose optimization technique as appropriate and may include automated exposure control or mA/KV adjustment according to patient size. FINDINGS: No intracranial hemorrhage, mass, or edema. Midline structures are unremarkable. Normal ventricular caliber for age. Cardona-white matter differentiation is preserved, without evidence of acute infarct. No abnormal extra- axial fluid collections. Mastoid air cells are well aerated. Mild to moderate inflammatory mucosal thickening throughout the e thmoid air cells. No acute bony findings. IMPRESSION: No evidence of an acute intracranial process.
--- NOTE | 2023-07-17 18:29 | RAD REPORT ---
EXAM DESCRIPTION: CT - Abdomen Pelvis Wo Contrast - 07/17/2023 5:46 pm CLINICAL HISTORY: ABD PAIN COMPARISON: Abdomen Pelvis W Contrast dated 04/07/2019; Abdomen Pelvis W Contrast dated 08/14/2018 ; Abdomen Pelvis W Contrast dated 03/16/2017 TECHNIQUE: Thin cut axial CT imaging of the abdomen and pelvis was performed without IV contrast. Mu ltiplanar reformats were generated and reviewed. All CT scans are performed using dose optimization technique as appropriate and may include automated exposure control or mA/KV adjustment according to patient size. FINDINGS: No suspicious findings in the lung bases. The liver, spleen, and pancreas show no suspicious findings. Gallbladder is decompressed limiting lesly luation. Nonspecific fat stranding and mildly prominent lymph nodes involving the central mesenteric. Findings are stable. Symmetric renal contour, without suspicious parenchymal findings within limits of noncontrast techniq ue. No evidence of radiopaque calculi or hydroureteronephrosis. No dilated bowel loops or bowel wall thickening. No free air, free fluid or inflammatory stranding. N o hernia, mass or bulky lymphadenopathy. The urinary bladder is without significant finding. No suspicious bony findings. IMPRESSION: Stable central mesenteric fat stranding and mildly prominent adenopathy. Findings are st able, dating back at least to 2018. They are nonspecific, could be idiopathic or relate to mesenterit is or mesenteric adenitis. No other acute intra-abdominal process.
--- NOTE | 2023-07-17 19:47 | RAD REPORT ---
EXAM DESCRIPTION: US - Abdomen Exam Limited - 07/17/2023 7:12 pm CLINICAL HISTORY: ABD PAIN COMPARISON: Abdomen Pelvis Wo Contrast dated 07/17/2023 TECHNIQUE: Sonographic grayscale and color flow images of the right upper abdominal quadrant were obtained. FINDINGS: The gallbladder demonstrates no gallstones. No pericholecystic fluid or gallbladder wall t hickening. The common bile duct is normal measuring 7 mm. The liver demonstrates no findings of intrahepatic biliary dilatation. IMPRESSION: Mildly prominent common bile duct of uncertain significance. Please correlate with bilir ubin levels. No cholelithiasis or findings to suggest cholecystitis.
[2023-07-17] MEDS ORDERED: IBUPROFEN 400 MG TAB ONE (20:10)
[2023-07-17] MEDS ORDERED: IBUPROFEN 200 MG TAB PO ONE (20:10)
--- NOTE | 2023-07-17 20:40 | EDPHYS ---
Physician Documentation [facility] Name: Elaine Rowland Age: 52 yrs Sex: Female : 1970 Arrival Date: 07/17/2023 Time: 15:51 Bed 15 Private MD: ED Physician Antolin Manzanares HPI: 07/17 16:05 This 52 yrs old Female presents to ER via EMS with complaints of High Blood Sugar, High cp Blood Pressure. 16:05 The patient or guardian reports hyperglycemia, that was potentially precipitated by ran cp out of prescribed insulin 3 weeks ago. 16:05 Associated signs and symptoms: Pertinent positives: headache, chest pain, abdominal cp pain. 16:05 Patient is a 52-year-old female with past medical history significant for cp [id number] diabetes, hyperlipidemia, COPD and hypertension who presents to the emergency department with complaints of elevated blood pressure and blood sugar. Patient admits to being off of her prescribed medications of insulin and hypertensive medication for the past several weeks. She reports she is in the indigent program for medications and ran out of her meds and so she has been without until she can reapply for the program. Patient complains of headache, chest pain and abdominal pain. Historical: - Allergies: 15:58 NKDA; kc6 - PMHx: 15:58 abd hernia; acid reflux; Anxiety; COPD; Diabetes - NIDDM; Hyperlipidemia; Hypertensive kc6 disorder; Cirrhosis of liver; - PSHx: 15:58 None; kc6 - Immunization history:: Client reports receiving the 2nd dose of the Covid vaccine, Flu vaccine is up to date. - Social history:: Smoking status: Patient/guardian denies using tobacco. ROS: 16:10 Constitutional: Negative for body aches, chills, fever, poor PO intake. cp 16:10 Eyes: Negative for injury, pain, redness, and discharge. cp 16:10 Cardiovascular: Positive for chest pain. 16:10 Respiratory: Negative for cough, shortness of breath, wheezing. 16:10 Abdomen/GI: Positive for abdominal pain, Negative for vomiting, diarrhea, constipation. 16:10 : Negative for urinary symptoms. 16:10 Neuro: Positive for headache, Negative for altered mental status, dizziness, numbness, weakness. 16:10 All other systems are negative. Exam: 16:15 Constitutional: The patient appears in no acute distress, alert, awake, cp non-diaphoretic, non-toxic, well developed, well nourished, uncomfortable. 16:15 Head/Face: Normocephalic, atraumatic. cp 16:15 Eyes: Periorbital structures: appear normal, Conjunctiva: normal, no exudate, no injection, Sclera: no appreciated abnormality, Lids and lashes: appear normal, bilaterally. 16:15 ENT: External ear(s): are unremarkable, Nose: is normal, Mouth: Lips: moist, Oral mucosa: pink and intact, moist, Posterior pharynx: is normal, airway is patent, no erythema, no exudate. 16:15 Neck: ROM/movement: is normal, is supple, without pain, no range of motions limitations. 16:15 Chest/axilla: Inspection: normal. 16:15 Cardiovascular: Rate: normal, Rhythm: regular, Edema: is not appreciated. 16:15 Respiratory: the patient does not display signs of respiratory distress, Respirations: normal, no use of accessory muscles, no retractions, labored breathing, is not present, Breath sounds: are clear throughout, no decreased breath sounds, no stridor, no wheezing. 16:15 Abdomen/GI: Inspection: abdomen appears normal, Bowel sounds: active, all quadrants, Palpation: soft, in all quadrants, moderate abdominal tenderness, in the epigastric area, right upper quadrant and left upper quadrant, rebound tenderness, is not appreciated. 16:15 Back: CVA tenderness. 16:15 Skin: cellulitis, is not appreciated, no rash present. 16:15 Neuro: Orientation: to person, place \T\ time. Mentation: is normal, Cerebellar function: is grossly normal, Motor: moves all fours, Sensation: is normal. Vital Signs: 15:57 BP 156 / 74; Pulse 84; Resp 18 S; Temp 98.3(O); Pulse Ox 97% on R/A; Weight 65.77 kg kc6 (R); Height 5 ft. 2 in. (R); Pain 10/10; 17:00 BP 125 / 73; Pulse 79; Resp 13 S; Pulse Ox 99% on R/A; kc6 17:53 BP 136 / 78; Pulse 71; Resp 14 S; Pulse Ox 100% on R/A; kc6 18:37 BP 128 / 75; Pulse 70; Resp 16 S; Pulse Ox 99% on R/A; kc6 19:39 BP 146 / 87; Pulse 73; Resp 16; Pulse Ox 99% on R/A; ll3 21:15 BP 157 / 98; Pulse 74; Resp 19; Pulse Ox 100% on R/A; ll3 15:57 Body Mass Index 26.52 (65.77 kg, 157.48 cm) [facility] 15:57 Pain Scale: Adult [facility] MDM: 16:00 Patient medically screened. cp 18:00 Differential diagnosis: DKA, hyperglycemia, acute KS, choledocholithiasis. cp 20:40 Data reviewed: vital signs, nurses notes, lab test result(s), EKG, radiologic studies, cp CT scan, plain films. 20:40 Consideration of Admission/Observation Escalation of care including cp admission/observation considered. 20:40 Counseling: I had a detailed discussion with the patient and/or guardian regarding the cp historical points, exam findings, and any diagnostic results supporting the discharge/admit diagnosis, the presence of at least one elevated blood pressure reading (>120/80) during this emergency department visit, lab results, the need for outpatient follow up, for definitive care, a family practitioner, to return to the emergency department if symptoms worsen or persist or if there are any questions or concerns that arise at home. 20:40 Response to treatment: the patient's symptoms have markedly improved after treatment, cp and as a result, I will discharge patient. Special discussion: Based on the patient's history, exam, and Dx evaluation, there is no indication for emergent intervention or inpatient Tx. It is understood by the patient/guardian that if the Sx's persist or worsen they need to return immediately for re-evaluation. Based on the patient's Hx, exam, and Dx evaluation, there is no indication for emergent surgery or inpatient Tx. It is understood by the patient/guardian that if the Sx's persist or worsen they need to return immediately for re-evaluation. 07/17 15:59 Order name: Basic Metabolic Panel; Complete Time: 17:55 cp 07/17 17:56 Interpretation: Normal except: NA 131; GLUC 545; BUN 22; CRE 1.68; GFR 36. cp 07/17 15:59 Order name: CBC with Diff; Complete Time: 17:55 cp 07/17 15:59 Order name: LFT's; Complete Time: 17:55 cp 07/17 18:46 Interpretation: Normal except: ALK 141. cp 07/17 15:59 Order name: Magnesium; Complete Time: 17:55 cp 07/17 15:59 Order name: NT PRO-BNP; Complete Time: 17:55 cp 07/17 15:59 Order name: PT-INR; Complete Time: 17:55 cp 07/17 15:59 Order name: Troponin HS; Complete Time: 17:55 cp 07/17 15:59 Order name: Lipase; Complete Time: 17:55 cp 07/17 18:47 Interpretation: Normal except: LIP 80. cp 07/17 16:07 Order name: Glucose, Ancillary Testing; Complete Time: 17:55 EDMS 07/17 17:22 Order name: Glucose, Ancillary Testing; Complete Time: 17:55 EDMS 07/17 21:13 Order name: Glucose, Ancillary Testing EDMS 07/17 15:59 Order name: XRAY Chest (1 view); Complete Time: 17:55 cp 07/17 15:59 Order name: CT Head Brain wo Cont; Complete Time: 18:46 cp 07/17 18:46 Interpretation: Report reviewed. cp 07/17 17:43 Order name: Abdomen ; Complete Time: 18:46 EDMS 07/17 18:46 Interpretation: Report reviewed. cp 07/17 18:48 Order name: US Abdomen Limited: gallbladder; Complete Time: 20:13 cp 07/17 15:59 Order name: EKG; Complete Time: 16:00 07/17 15:59 Order name: Accucheck Blood Glucose; Complete Time: 16:01 07/17 15:59 Order name: Cardiac monitoring; Complete Time: 16:40 cp 07/17 15:59 Order name: EKG - Nurse/Tech; Complete Time: 16:40 cp 07/17 15:59 Order name: IV Saline Lock; Complete Time: 16:02 cp 07/17 15:59 Order name: Labs collected and sent; Complete Time: 16:40 cp 07/17 15:59 Order name: O2 Per Protocol; Complete Time: 16:02 cp 07/17 15:59 Order name: O2 Sat Monitoring; Complete Time: 16:02 07/17 18:48 Order name: NPO; Complete Time: 18:51 cp 07/17 20:16 Order name: PO challenge; Complete Time: 20:21 cp 07/17 20:32 Order name: Accucheck Blood Glucose; Complete Time: 21:02 cp Administered Medications: 16:39 Drug: Ondansetron IVP 4 mg Route: IVP; Site: left antecubital; kc6 17:11 Follow up: Response: No adverse reaction; Nausea is decreased kc6 16:39 Drug: Famotidine IVP 20 mg Route: IVP; Site: left antecubital; kc6 17:11 Follow up: Response: No adverse reaction 6 16:39 Drug: Insulin Regular Human IVP 10 units {Co-Signature: hb (Katherin Martinez RN).} kc6 Route: IVP; Site: left antecubital; 17:11 Follow up: Response: No adverse reaction; Blood sugar is lowered kc6 16:39 Drug: NS 0.9% IV 1000 ml Route: IV; Rate: 1 bolus; Site: left antecubital; kc6 18:07 Follow up: Response: No adverse reaction; IV Status: Completed infusion; IV Intake: kc6 1000ml 16:39 Drug: morphine IVP or IV 2 mg Route: IVP; Infused Over: 4 mins; Site: left antecubital; kc6 17:11 Follow up: Response: No adverse reaction; Pain is unchanged, physician notified; RASS: kc6 Alert and Calm (0) 18:06 Drug: NS 0.9% IV 1000 ml Route: IV; Rate: 1 bolus; Site: left antecubital; kc6 21:07 Follow up: Response: No adverse reaction; IV Status: Completed infusion; IV Intake: ll3 1000ml 20:01 Drug: Ibuprofen PO 600 mg Route: PO; ll3 21:08 Follow up: Response: No adverse reaction; Marked relief of symptoms ll3 21:02 Drug: Lisinopril PO 20 mg Route: PO; ll3 21:04 Follow up: Response: Medication administered at discharge. ll3 Disposition Summary: 07/17/23 20:40 Discharge Ordered Location: Home cp Problem: chronic cp Symptoms: have improved cp Condition: Stable cp Diagnosis - Hypertensive heart disease without heart failure cp - Diabetes mellitus due to underlying condition with hyperglycemia cp - Chest pain, unspecified cp - Abdominal pain, unspecified cp Followup: cp - With: Private Physician - When: 1 - 2 days - Reason: Recheck today's complaints Discharge Instructions: - Discharge Summary Sheet cp - Abdominal Pain, Adult cp - Nonspecific Chest Pain, Adult cp - Hyperglycemia cp - Daily Diabetes Mellitus Record cp - Blood Glucose Monitoring, Adult cp - Diabetes Mellitus and Nutrition, Adult cp - Aspirin and Your Heart cp Forms: - Medication Reconciliation Form cp - Thank You Letter cp - Antibiotic Education cp - Prescription Opioid Use cp - Patient Portal Instructions cp - Leadership Thank You Letter cp Prescriptions: - Lisinopril 20 mg Oral Tablet - take 1 tablet by ORAL route once daily; 20 tablet; Refills: 0, Product cp Selection Permitted - Metformin 1,000 mg Oral Tablet - take 1 tablet by ORAL route every 12 hours with morning and evening meals; 60 cp tablet; Refills: 0, Product Selection Permitted Addendum: 07/19/2023 02:33 Addendum: EKG interpretation: NSR and NR, rate: 79, CA interval 158, QRS: 86 ms, QT: c p 384. Signatures: Dispatcher [employer] EDMS Se Lee PA PA cp Loubet, Lynsea RN RN ll3 Viktoria Quinones RN RN kc6 Katherin Martinez RN Corrections: (The following items were deleted from the chart) 07/17 15:59 15:58 Allergies: HYDROCODONE; kc6 kc6 15:59 15:58 Allergies: Ibuprofen; kc6 kc6 17:43 16:00 Abdomen Pelvis W Con+CT.RAD.BRZ ordered. EDMS EDMS
--- NOTE | 2023-07-17 20:40 | ER ---
Nurse's Notes [facility] Name: Elaine Rowland Age: 52 yrs Sex: Female : 1970 Arrival Date: 07/17/2023 Time: 15:51 Bed 15 Private MD: Diagnosis: Hypertensive heart disease without heart failure;Diabetes mellitus due to underlying condition with hyperglycemia;Chest pain, unspecified;Abdominal pain, unspecified Presentation: 07/17 15:57 Chief complaint: EMS states: pt ran out of her insulin and bp meds 3 weeks ago. reports kc6 right leg tingling and abd discomfort since yesterday. Coronavirus screen: At this time, the client does not indicate any symptoms associated with coronavirus-19. Ebola Screen: No symptoms or risks identified at this time. Initial Sepsis Screen: Does the patient meet any 2 criteria? No. Patient's initial sepsis screen is negative. Does the patient have a suspected source of infection? No. Patient's initial sepsis screen is negative. Risk Assessment: Do you want to hurt yourself or someone else? Patient reports no desire to harm self or others. Onset of symptoms was July 17, 2023. 15:57 Method Of Arrival: EMS: [facility] kc6 15:57 Acuity: SHAINA 3 kc6 Triage Assessment: 15:58 General: Appears in no apparent distress. comfortable, Behavior is calm, cooperative, kc6 appropriate for age. EENT: No signs and/or symptoms were reported regarding the EENT system. Neuro: Level of Consciousness is awake, alert, obeys commands, Oriented to person, place, time, situation, Appropriate for age. Cardiovascular: Capillary refill < 3 seconds. Respiratory: Airway is patent Trachea midline Respiratory effort is even, unlabored, Respiratory pattern is regular, symmetrical. GI: Reports nausea, vomiting, Patient currently denies diarrhea. : No signs and/or symptoms were reported regarding the genitourinary system. Derm: No signs and/or symptoms reported regarding the dermatologic system. Skin is intact, is healthy with good turgor, Skin is pink, warm \T\ dry. Musculoskeletal: No signs and/or symptoms reported regarding the musculoskeletal system. Circulation, motion, and sensation intact. Capillary refill < 3 seconds, Range of motion: intact in all extremities. Historical: - Allergies: 15:58 NKDA; kc6 - PMHx: 15:58 abd hernia; acid reflux; Anxiety; COPD; Diabetes - NIDDM; Hyperlipidemia; Hypertensive kc6 disorder; Cirrhosis of liver; - PSHx: 15:58 None; kc6 - Immunization history:: Client reports receiving the 2nd dose of the Covid vaccine, Flu vaccine is up to date. - Social history:: Smoking status: Patient/guardian denies using tobacco. Screenin:00 [facility] ED Fall Risk Assessment (Adult) History of falling in the last 3 months, kc6 including since admission No falls in past 3 months (0 pts) Confusion or Disorientation No (0 pts) Intoxicated or Sedated No (0 pts) Impaired Gait No (0 pts) Mobility Assist Device Used No (0 pt) Altered Elimination No (0 pt) Score/Fall Risk Level 0 - 2 = Low Risk. Abuse screen: Denies threats or abuse. Denies injuries from another. Nutritional screening: No deficits noted. Tuberculosis screening: No symptoms or risk factors identified. Assessment: 16:00 Reassessment: please see triage assessment. [facility] 17:00 Reassessment: Patient appears in no apparent distress at this time. No changes from [facility] previously documented assessment. Patient and/or family updated on plan of care and expected duration. Pain level reassessed. Patient is alert, oriented x 3, equal unlabored respirations, skin warm/dry/pink. 17:52 Reassessment: Patient appears in no apparent distress at this time. No changes from [facility] previously documented assessment. Patient and/or family updated on plan of care and expected duration. Pain level reassessed. Patient is alert, oriented x 3, equal unlabored respirations, skin warm/dry/pink. 18:37 Reassessment: Patient appears in no apparent distress at this time. No changes from [facility] previously documented assessment. Patient and/or family updated on plan of care and expected duration. Pain level reassessed. Patient is alert, oriented x 3, equal unlabored respirations, skin warm/dry/pink. 19:39 Reassessment: Pt c/o H/A, Se Page notified. ll3 Vital Signs: 15:57 BP 156 / 74; Pulse 84; Resp 18 S; Temp 98.3(O); Pulse Ox 97% on R/A; Weight 65.77 kg kc6 (R); Height 5 ft. 2 in. (R); Pain 10/10; 17:00 BP 125 / 73; Pulse 79; Resp 13 S; Pulse Ox 99% on R/A; kc6 17:53 BP 136 / 78; Pulse 71; Resp 14 S; Pulse Ox 100% on R/A; kc6 18:37 BP 128 / 75; Pulse 70; Resp 16 S; Pulse Ox 99% on R/A; kc6 19:39 BP 146 / 87; Pulse 73; Resp 16; Pulse Ox 99% on R/A; ll3 21:15 BP 157 / 98; Pulse 74; Resp 19; Pulse Ox 100% on R/A; ll3 15:57 Body Mass Index 26.52 (65.77 kg, 157.48 cm) kc6 15:57 Pain Scale: Adult kc6 ED Course: 15:57 Patient arrived in ED. kc6 15:57 Se Lee PA is PHCP. cp 15:57 Antolin Manzanares MD is Attending Physician. cp 15:58 Triage completed. kc6 15:58 Arm band placed on. kc6 16:00 Patient has correct armband on for positive identification. Bed in low position. Call kc6 light in reach. Side rails up X2. 16:00 Maintain EMS IV. Dressing intact. Good blood return noted. Site clean \T\ dry. Gauge \T\ jody 6 site: 20G LAC. 16:01 Viktoria Quinones, RN is Primary Nurse. kc6 16:25 XRAY Chest (1 view) In Process Unspecified. EDMS 17:47 CT Head Brain wo Cont In Process Unspecified. EDMS 17:48 Abdomen In Process Unspecified. EDMS 19:14 US Abdomen Limited: gallbladder In Process Unspecified. EDMS 21:08 No provider procedures requiring assistance completed. IV discontinued, intact, ll3 bleeding controlled, No redness/swelling at site. Pressure dressing applied. Administered Medications: 16:39 Drug: Ondansetron IVP 4 mg Route: IVP; Site: left antecubital; kc6 17:11 Follow up: Response: No adverse reaction; Nausea is decreased kc6 16:39 Drug: Famotidine IVP 20 mg Route: IVP; Site: left antecubital; kc6 17:11 Follow up: Response: No adverse reaction kc6 16:39 Drug: Insulin Regular Human IVP 10 units {Co-Signature: hb (Katherin Martinez RN).} kc6 Route: IVP; Site: left antecubital; 17:11 Follow up: Response: No adverse reaction; Blood sugar is lowered kc6 16:39 Drug: NS 0.9% IV 1000 ml Route: IV; Rate: 1 bolus; Site: left antecubital; kc6 18:07 Follow up: Response: No adverse reaction; IV Status: Completed infusion; IV Intake: kc6 1000ml 16:39 Drug: morphine IVP or IV 2 mg Route: IVP; Infused Over: 4 mins; Site: left antecubital; kc6 17:11 Follow up: Response: No adverse reaction; Pain is unchanged, physician notified; RASS: kc6 Alert and Calm (0) 18:06 Drug: NS 0.9% IV 1000 ml Route: IV; Rate: 1 bolus; Site: left antecubital; kc6 21:07 Follow up: Response: No adverse reaction; IV Status: Completed infusion; IV Intake: ll3 1000ml 20:01 Drug: Ibuprofen PO 600 mg Route: PO; ll3 21:08 Follow up: Response: No adverse reaction; Marked relief of symptoms ll3 21:02 Drug: Lisinopril PO 20 mg Route: PO; ll3 21:04 Follow up: Response: Medication administered at discharge. ll3 Medication: 21:09 VIS not applicable for this client. ll3 Intake: 18:07 IV: 1000ml; Total: 1000ml. kc6 21:07 IV: 1000ml; Total: 2000ml. ll3 Outcome: 20:40 Discharge ordered by MD. cp 21:08 Discharged to home ambulatory, with family. ll3 21:08 Condition: stable 21:08 Discharge instructions given to patient, family, Instructed on discharge instructions, follow up and referral plans. medication usage, Demonstrated understanding of instructions, follow-up care, medications, Prescriptions given X 2. 21:16 Patient left the ED. ll3 Signatures: Dispatcher [employer] EDMS Se Lee PA PA cp Loubet, Lynsea, RN RN 3 Viktoria Quinones RN RN kc6 Baxter, Heather RN hb Corrections: (The following items were deleted from the chart) 15:59 15:58 Allergies: HYDROCODONE; kc6 kc6 15:59 15:58 Allergies: Ibuprofen; kc6 kc6
[2023-07-17] MEDS ORDERED: lisinopriL 20 MG TAB ONE (21:03)
[2023-07-17 21:34] VITALS: TEMP 98.3
[2023-07-17 21:43] VITALS: BP 157/98; O2SAT 100
--- NOTE | 2023-07-19 18:02 | EKG ---
Test Date: 2023-07-17 Test Time: 16:15:31 [employer]: CHYNA MEASUREMENT RESULTS: Intervals: Rate: 79 SD: 158 QRSD: 86 QT: 384 QTc: 440 [place]: P: 65 SD: 158 QRS: 60 T: 58 INTERPRETIVE STATEMENTS: Normal sinus rhythm Normal ECG Compared to ECG 06/24/2023 13:39:24 Sinus tachycardia no longer present Myocardial infarct finding no longer present Electronically Signed On 07-19-23 17:57:54 CDT by Ruben Quesada
== END 2023-07-17 21:16 | disposition home or self-care (01) ==
LOC: ER 15:51
DX: I11.9 Hypertensive heart disease without heart failure (principal); E11.65 Type 2 diabetes mellitus with hyperglycemia; R07.9 Chest pain, unspecified; R10.9 Unspecified abdominal pain; Z91.141 Patient's other noncompliance with medication regimen due to financial hardship
CPT/HCPCS: 96361; 93005; 85025; 80048; 36415; 83735; 85610; 82947 ×3; 80076; 84484; 83690; 83880; 70450; 74176; 71045; 76705; 96375; 96374; 99284; J1815; J2270; J2405; J7030 ×2

== ENCOUNTER 2023-09-02 19:09 | Emergency (ER) | payer OTHER ==
--- OUTSIDE RECORDS SUMMARY | 2023-09-02 19:17 | XMS REPORT | Continuity of Care Document ---
:1970 Author Organization [facility] t Address [address] [facility] [address] [place] [address] Care Team Providers Name Role Phone FLORINA BALTAZAR Primary Care Physician Unavailable MIREYA CENTENO Attending Clinician Unavailable PROVIDER, CAMPAIGNS Attending Clinician Unavailable Lab, [facility] Attending Clinician Unavailable Mireya Centeno MD Attending Clinician Doctor Unassigned, [place] Attending Clinician Unavailable CHARLETTE HOLLOWAY Attending Clinician Unavailable Charlette Holloway DO Attending Clinician JONATHAN BAEZ Attending Clinician [...] Clinician Unavailable Minh Hartman MD Attending Clinician FLORINA BALTAZAR Attending Clinician Unavailable MIREYA CENTENO Admitting Clinician Unavailable CHARLETTE HOLLOWAY Admitting Clinician Unavailable JONATHAN BAEZ Admitting Clinician Unavailable JENNY BURCH Admitting Clinician Unavailable Jane KYLE Admitting Clinician Unavailable ARGELIA CARSON Admitting Clinician Unavailable JC MIRZA Admitting Clinician Unavailable MINH HARTMAN Admitting Clinician Unavailable Payers Payer Name Policy Type Policy Number Effective Date Expiration Date Jessica DIANA [id number] 2022 2023 HOSP DIST 00:00:00 00:00:00 ICF [id number] 2021 2022 00:00:00 00:00:00 [employer] [employer] [id number] 2015 CARE 00:00:00 [place] CO. I H [id number] 2015 C 00:00:00 Problems Condition Condition Condition Status Onset Resolution Last Treating Co mments Source Name Details Category Date Date Treatment Clinician Date Nausea and Nausea and Disease Active U nivers vomiting vomiting 2-23 ity of 00:00: [place] 00 Medical [...] Essential Disease Active Uni vers hypertensi hypertensi 7 it y of on on 00:00: [place] [...] INGREDI 0-27 ity of 00:00: [place] 00 [facility] Branch Ibuprofe Propensi Active Anxiety 2014-11 Pt has Unive rs n ty to 0-27 been ity of adverse 00:00: taking [place] reaction 00 advil at [facility] Branch without any issues Social History Social Habit Start Date Stop Date Quantity Comments Source History of tobacco Cigarette Smoker University of use [facility] Exposure to 2023-01-11 2023-01-21 Not sure University SARS-CoV-2 (event) 00:00:00 10:29:00 [facility] Cigarettes smoked 2023-01-21 2023-01-21 Univers ity of current (pack per 00:00:00 00:00:00 [facility] ) - Reported Branch Tobacco use and 2023-01-21 2023-01-21 Smokeless Universit y of exposure 00:00:00 00:00:00 tobacco non-user [facility] Alcohol intake 2023-01-21 2023-01-21 0 /d University of 00:00:00 00:00:00 [facility] Tobacco Comment 2023-01-21 2023-01-21 Quit smoking Univers ity of 00:00:00 00:00:00 over one month [facility] Sex Ass[birth year] At [birth year] Universit y of 00:00:00 00:00:00 [place] [facility] Smoking Status Start Date Stop Date Source Ex-smoker 2023-01-21 00:00:00 2023-01-21 00:00:00 Universi ty of [place] [facility] Medications Ordered Filled Start Stop Current Ordering [...] 26 (two) Medical times Branch daily. traMADOL 3-0 Yes 50mg Take 50 mg Uni vers [...] Medical times Branch daily. pantoprazol 2022-0 Yes [id number] 40mg Take 1 Univers e 40 mg EC 2-23 tablet by ity of tablet 00:00: mouth in [place] [address] the Medical morning Branch and 1 tablet in the evening. pantoprazol 2022-0 Yes [id number] 40mg Take 1 Univers e 40 mg EC 2-23 tablet by ity of tablet 00:00: mouth in [place] 00 the Medical morning Branch and 1 tablet in the evening. pantoprazol 2023-0 Yes [id number] 40mg Take 1 Univers e 40 mg EC 2-23 tablet by ity of tablet 00:00: mouth in [place] [address] the Medical morning Branch and 1 tablet in the evening. insulin 2022- No 10U 10 Units, Univ ers regular 01-04 Slow IV ity of human 03:30: 03:03 Push, [place] (HUMULIN R) 00 :00 ONCE, 1 Medic al injection dose, On Branch 10 Units 01/03/23 at 2130, Routine
Indicatio n for insulin: Hyperglyce caleb iopamidol 2022- No [id number] 98mL 98 mL, Univers (ISOVUE 01-04 Intravenou [...] of (DUONEB) 01:30: 00:44 , ONCE, 1 [place]ai as 0.5 mg-3 [...] ity of succ 23:45: 23:12 Push, ONCE [place] (SOLU-MEDRO 00 :00 NOW, 1 Medica l L) dose, On Branch injection [place] 125 mg 12/10/22 at 1745, PATRIZIA ipratropium 2022- No 3mL 3 mL, Univ ers -albuteroL 12-10 Inhalation it y of (DUONEB) 23:45: 23:20 , ONCE, 1 [place] 0.5 mg-3 00 :00 dose, On Medical mg(2.5 mg [place] Branch base)/3 mL 12/10/22 at nebulizer 1745, PATRIZIA solution 3 mL levoFLOXaci 2022-0 Yes [id number] 500mg Take 1 Univers n 1-12 tablet by ity of (LEVAQUIN) 00:00: mouth [place] 500 mg 00 every 24 Medical tablet (twenty-fo Branch ur) hours. predniSONE 3-0 Yes [id number] 60mg Take 3 U nivers 20 mg 1-12 tablets by ity of tablet 00:00: mouth [place] 00 every Medical morning. Branch albuterol 2022-0 Yes [id number] 2{puff} Inhale 2 Univers 90 1-12 Puffs ity of mcg/actuati 00:00: every 6 Sai as on inhaler 00 (six) Medical hours as Branch needed for Wheezing or Shortness of Breath. dextrometho 3-0 Yes [id number] 10mL Take 10 mL Univers rphan-guaif 1-12 by mouth ity of enesin 00:00: every 6 [place] 10-100 mg/5 00 (six) Medical mL solution hours as Bran ch needed for Cough. levoFLOXaci 2022-0 Yes [id number] 500mg Take 1 Univers n 1-12 tablet by ity of (LEVAQUIN) 00:00: mouth [place] 500 mg 00 every 24 Medical tablet (twenty-fo Branch ur) hours. predniSONE 3-0 Yes [id number] 60mg Take 3 U nivers 20 mg 1-12 tablets by ity of tablet 00:00: mouth [place] 00 every Medical morning. Branch albuterol 2022-0 Yes [id number] 2{puff} Inhale 2 Univers 90 1-12 Puffs ity of mcg/actuati 00:00: every 6 Sai as on inhaler 00 (six) Medical hours as Branch needed for Wheezing or Shortness of Breath. dextrometho 3-0 Yes [id number] 10mL Take 10 mL Univers rphan-guaif 1-12 by mouth ity of enesin 00:00: every 6 [place] 10-100 mg/5 00 (six) Medical mL solution hours as Bran ch needed for Cough. levoFLOXaci 2023-0 Yes [id number] 500mg Take 1 Univers n 1-12 tablet by ity of (LEVAQUIN) 00:00: mouth [place] 500 mg 00 every 24 Medical tablet (twenty-fo Branch ur) hours. predniSONE 2023-0 Yes [id number] 60mg Take 3 U nivers 20 mg 1-12 tablets by ity of tablet 00:00: mouth [place] 00 every Medical morning. Branch albuterol 2022-0 Yes [id number] 2{puff} Inhale 2 Univers 90 1-12 Puffs ity of mcg/actuati 00:00: every 6 [place]ai as on inhaler 00 (six) Medical hours as Branch needed for Wheezing or Shortness of Breath. dextrometho 2022-0 Yes [id number] 10mL Take 10 mL Univers rphan-guaif 1-12 by mouth ity of enesin 00:00: every 6 [place] 10-100 mg/5 00 (six) Medical mL solution hours as Bran ch needed for Cough. levoFLOXaci 2022-0 Yes [id number] 500mg Take 1 Univers n 1-12 tablet by ity of (LEVAQUIN) 00:00: mouth [place] 500 mg 00 every 24 Medical tablet (twenty-fo Branch ur) hours. predniSONE 2022-0 Yes [id number] 60mg Take 3 U nivers 20 mg 1-12 tablets by ity of tablet 00:00: mouth [place] 00 every Medical morning. Branch albuterol 2022-0 Yes [id number] 2{puff} Inhale 2 Univers 90 1-12 Puffs ity of mcg/actuati 00:00: every 6 [place]ai as on inhaler 00 (six) Medical hours as Branch needed for Wheezing or Shortness of Breath. dextrometho 2022-0 Yes [id number] 10mL Take 10 mL Univers rphan-guaif 1-12 by mouth ity of enesin 00:00: every 6 [place] 10-100 mg/5 00 (six) Medical mL solution hours as Bran ch needed for Cough. levoFLOXaci 2022-0 Yes [id number] 500mg Take 1 Univers n 1-12 tablet by ity of (LEVAQUIN) 00:00: mouth [place] 500 mg 00 every 24 Medical tablet (twenty-fo Branch ur) hours. predniSONE 2022-0 Yes [id number] 60mg Take 3 U nivers 20 mg 1-12 tablets by ity of tablet 00:00: mouth [place] 00 every Medical morning. Branch albuterol 2022-0 Yes [id number] 2{puff} Inhale 2 Univers 90 1-12 Puffs ity of mcg/actuati 00:00: every 6 Sai as on inhaler 00 (six) Medical hours as Branch needed for Wheezing or Shortness of Breath. dextrometho 2022-0 Yes [id number] 10mL Take 10 mL Univers rphan-guaif 1-12 by mouth ity of enesin 00:00: every 6 [place] 10-100 mg/5 00 (six) Medical mL solution hours as Bran ch needed for Cough. levoFLOXaci 0 Yes [id number] 500mg Take 1 Univers n 1-12 tablet by ity of (LEVAQUIN) 00:00: mouth [place] 500 mg 00 every 24 Medical tablet (twenty-fo Branch ur) hours. predniSONE 0 Yes [id number] 60mg Take 3 U nivers 20 mg 1-12 tablets by ity of tablet 00:00: mouth [place] 00 every Medical morning. Branch albuterol Yes [id number] 2{puff} Inhale 2 Univers 90 1-12 Puffs ity of mcg/actuati 00:00: every 6 Sai as on inhaler 00 (six) Medical hours as Branch needed for Wheezing or Shortness of Breath. dextrometho Yes [id number] 10mL Take 10 mL Univers rphan-guaif 1-12 [...] Wed11/30/22 at 0700, PATRIZIA iopamidol 2022- No [id number] 70mL 70 mL, U nivers (ISOVUE 11-30 [...] Branch Wed11/30/22 at 0500, PATRIZIA NaCl 0.9% 2023-0 2023- No 1000mL at 999 Uni vers (NS) bolus 1-02 01-02 mL/hr, ity of infusion 11:00: 11:00 1,000 mL, Sai as 1,000 mL 00 :00 IV Medical Infusion, Branch ONCE, 1 dose, On Wed11/30/22 at 0500, STAT glipiZIDE 2022-0 Yes [id number] 2.5mg Take 1 Univers XL 2.5 mg 1-02 tablet by ity o f 24 hr 00:00: mouth [place] tablet 00 daily with Medical breakfast. Branch ondansetron 2022-0 Yes [id number] 4mg Take 1 Univers 4 mg 1-02 tablet by ity of disintegrat 00:00: mouth [place] ing tablet 00 every 8 Medica l (eight) Branch hours as needed for Nausea and Vomiting (N/V). metFORMIN 2022-0 Yes [id number] 1000mg Take 1 Univers 1,000 mg 1-02 tablet by ity of tablet 00:00: mouth in [place] 00 the Medical morning Branch and 1 tablet in the evening. Take with meals. glipiZIDE 2022-0 Yes [id number] 2.5mg Take 1 Univers XL 2.5 mg 1-02 tablet by ity o f 24 hr 00:00: mouth [place] tablet 00 daily with Medical breakfast. Branch ondansetron 2022-0 Yes [id number] 4mg Take 1 Univers 4 mg 1-02 tablet by ity of disintegrat 00:00: mouth [place] ing tablet 00 every 8 Medica l (eight) Branch hours as needed for Nausea and Vomiting (N/V). metFORMIN 2022-0 Yes [id number] 1000mg Take 1 Univers 1,000 mg 1-02 tablet by ity of tablet 00:00: mouth in [place] 00 the Medical morning Branch and 1 tablet in the evening. Take with meals. glipiZIDE 2022-0 Yes [id number] 2.5mg Take 1 Univers XL 2.5 mg 1-02 tablet by ity o f 24 hr 00:00: mouth [place] tablet 00 daily with Medical breakfast. Branch ondansetron 2022-0 Yes [id number] 4mg Take 1 Univers 4 mg 1-02 tablet by ity of disintegrat 00:00: mouth [place] ing tablet 00 every 8 Medica l (eight) Branch hours as needed for Nausea and Vomiting (N/V). metFORMIN 2023-0 Yes [id number] 1000mg Take 1 Univers 1,000 mg 1-02 tablet by ity of tablet 00:00: mouth in [place] 00 the Medical morning Branch and 1 tablet in the evening. Take with meals. glipiZIDE 3-0 Yes [id number] 2.5mg Take 1 Univers XL 2.5 mg 1-02 tablet by ity o f 24 hr 00:00: mouth [place] tablet 00 daily with Medical breakfast. Branch ondansetron 3-0 Yes [id number] 4mg Take 1 Univers 4 mg 1-02 tablet by ity of disintegrat 00:00: mouth [place] ing tablet 00 every 8 Medica l (eight) Branch hours as needed for Nausea and Vomiting (N/V). metFORMIN 3-0 Yes [id number] 1000mg Take 1 Univers 1,000 mg 1-02 tablet by ity of tablet 00:00: mouth in [place] 00 the Medical morning Branch and 1 tablet in the evening. Take with meals. glipiZIDE 3-0 Yes [id number] 2.5mg Take 1 Univers XL 2.5 mg 1-02 tablet by ity o f 24 hr 00:00: mouth [place] tablet 00 daily with Medical breakfast. Branch ondansetron 3-0 Yes [id number] 4mg Take 1 Univers 4 mg 1-02 tablet by ity of disintegrat 00:00: mouth [place] ing tablet 00 every 8 Medica l (eight) Branch hours as needed for Nausea and Vomiting (N/V). metFORMIN 3-0 Yes [id number] 1000mg Take 1 Univers 1,000 mg 1-02 tablet by ity of tablet 00:00: mouth in [place] 00 the Medical morning Branch and 1 tablet in the evening. Take with meals. glipiZIDE 3-0 Yes [id number] 2.5mg Take 1 Univers XL 2.5 mg 1-02 tablet by ity o f 24 hr 00:00: mouth [place] tablet 00 daily with Medical breakfast. Branch ondansetron 3-0 Yes [id number] 4mg Take 1 Univers 4 mg 1-02 tablet by ity of disintegrat 00:00: mouth [place] ing tablet 00 every 8 Medica l (eight) Branch hours as needed for Nausea and Vomiting (N/V). metFORMIN 3-0 Yes [id number] 1000mg Take 1 Univers 1,000 mg 1-02 tablet by ity of tablet 00:00: mouth in [place] 00 the Medical morning Branch and 1 tablet in the evening. Take with meals. glipiZIDE Yes [id number] 2.5mg Take 1 Univers XL 2.5 mg 1-02 tablet by ity o f 24 hr 00:00: mouth [place] tablet 00 daily with Medical breakfast. Branch ondansetron Yes [id number] 4mg Take 1 Univers 4 mg 1-02 tablet by ity of disintegrat 00:00: mouth [place] ing tablet 00 every 8 Medica l (eight) Branch hours as needed for Nausea and Vomiting (N/V). metFORMIN Yes [id number] 1000mg Take 1 Univers 1,000 mg 1-02 tablet by ity of tablet 00:00: mouth in [place] 00 the Medical morning Branch and 1 tablet in the evening. Take with meals. acetaminoph 2022- No [id number] 1{tbl} Take 1 U nivers en-codeine 11-3010 tablet by ity of 300-30 mg 00:00: 05:59 mouth [place] tablet 00 :00 every 4 Medical (four) Branch hours as needed for Pain (scale 1-3) for up to 7 days. Indication s: acute pain insulin 2021-11 No 10U 10 Units, Univ ers regular 01-05 Slow IV ity of human 02:00: 01:15 Push, [place] (HUMULIN R) 00 :00 ONCE, 1 Medic al injection dose, On Branch 10 Units Wed11/03/22 at 2000, Routine
Indicatio n for insulin: Hyperglyce caleb NaCl 0.9% 2021-11- No 1000mL at 999 Uni vers (NS) bolus 01-05 mL/hr, ity of infusion 01:00: 02:30 1,000 mL, Sai as 1,000 mL 00 :00 IV Medical Infusion, [place] ONCE, 1 dose, On Wed11/03/22 at 1900, STAT canaglifloz 2021-11- No [id number] 1{tbl} Take 1 Univers in-metformi 01-0406 tablet by it y of n 00:00: 05:59 mouth in [place] (INVOKAMET) 00 :00 the Medical 150-1,000 morning Branch mg per and 1 tablet tablet in the evening. Do all this for 30 days. canaglifloz 2021-11- No [id number] 1{tbl} Take 1 Univers in-metformi 01-04 tablet by it y of n 00:00: 05:59 mouth in [place] (INVOKAMET) 00 :00 the Medical 150-1,000 morning Branch mg per and 1 tablet tablet in the evening. Do all this for 30 days. ciprofloxac 2021-11 No 250mg 250 mg, U nivers in HCl 12-30 Oral, ity of (CIPRO) 01:45: 01:57 ONCE, 1 [place] tablet 250 00 :00 dose, On Medic al mg Wed Branch 10/28/22 at 1945, PATRIZIA
Re ason for Anti-Infec tive: Documented Infection< br>Documen jesus Infection Site: Urine
D uration of Therapy: 7 days magnesium 2021-11 No 2g 2 g, IV Univ ers sulfate in 12-30 Piggyback, it y of water 2 00:00: 02:33 Administer Sai as gram/50 mL 00 :00 over 60 Medica l (4 %) Minutes, Branch infusion 2 ONCE, 1 g dose, On Wed10/28/22 at 1800, Routine ciprofloxac 2021-11 Yes [id number] 500mg Take 1 Univers in HCl 500 1-30 tablet by ity of mg tablet 00:00: [place] 00 the Medical morning Branch and 1 tablet in the evening. ondansetron 2021-11 Yes [id number] 4mg Take 1 Univers 4 mg 1-30 tablet by ity of disintegrat 00:00: mouth [place] ing tablet 00 every 8 Medica l (eight) Branch hours as needed for Nausea and Vomiting (N/V). ciprofloxac 2021-11 Yes [id number] 500mg Take 1 Univers in HCl 500 1-30 tablet by ity of mg tablet 00:00: [place] 00 the Medical morning Branch and 1 tablet in the evening. ondansetron 2021-11 Yes [id number] 4mg Take 1 Univers 4 mg 1-30 tablet by ity of disintegrat 00:00: mouth [place] ing tablet 00 every 8 Medica l (eight) Branch hours as needed for Nausea and Vomiting (N/V). ciprofloxac 2021-11 Yes [id number] 500mg Take 1 Univers in HCl 500 1-30 tablet by ity of mg tablet 00:00: mouth [place] 00 the Medical morning Branch and 1 tablet in the evening. ciprofloxac 2021-11 Yes [id number] 500mg Take 1 Univers in HCl 500 1-30 tablet by ity of mg tablet 00:00: mouth [place] 00 the Medical morning Branch and 1 tablet in the evening. ciprofloxac 2021-11 Yes [id number] 500mg Take 1 Univers in HCl 500 1-30 tablet by ity of mg tablet 00:00: mouth [place] 00 the Medical morning Branch and 1 tablet in the evening. ciprofloxac 2021-11 Yes [id number] 500mg Take 1 Univers in HCl 500 1-30 tablet by ity of mg tablet 00:00: mouth [place] 00 the Medical morning Branch and 1 tablet in the evening. ciprofloxac 2021-11 Yes [id number] 500mg Take 1 Univers in HCl 500 1-30 tablet by ity of mg tablet 00:00: mouth [place] 00 the Medical morning Branch and 1 tablet in the evening. ciprofloxac 2021-11 Yes [id number] 500mg Take 1 Univers in HCl 500 1-30 tablet by ity of mg tablet 00:00: mouth [place] 00 the Medical morning Branch and 1 tablet in the evening. ciprofloxac 2021-11 Yes [id number] 500mg Take 1 Univers in HCl 500 1-30 tablet by ity of mg tablet 00:00: mouth [place] 00 the Medical morning Branch and 1 tablet in the evening. ondansetron 2021-11- No [id number] 4mg Take 1 Univers 4 mg 1-30 11-30 tablet by ity of disintegrat 00:00: 00:00 [place] tablet 00 :00 every 8 Medica l (eight) Branch hours as needed for Nausea and Vomiting (N/V). acetaminoph 2021-11- No 650mg 650 mg, U nivers en 12-01 Oral, ity of (TYLENOL) 22:45: 21:59 ONCE, 1 [place] tablet 650 00 :00 dose, On Medic al mg [place] Branch 10/01/22 at 1745, PATRIZIA amoxicillin 2021-11- No [id number] 1{tbl} Take 1 Univers -clavulanat 12-01 11-11 tablet by it y of e 875-125 00:00: 05:59 mouth [place] mg per 00 :00 every 12 Medical tablet (twelve) Branch hours for 7 days. metFORMIN 2021-11- No 500mg 500 mg, Uni vers (GLUCOPHAGE 0-19 10-19 Oral, ity of ) tablet 01:45: 00:55 ONCE, 1 [place] 500 mg 00 :00 dose, On Medical [facility] Branch 09/15/22 at 2045, Routine ketorolac 2021-11- No 15mg 15 mg, Unive rs (TORADOL) 0- 10- Slow IV ity of injection 01:30: 00:55 Push, [place] 15 mg 00 :00 ONCE, 1 Medical dose, On Branch [facility] 09/15/22 at 2030, PATRIZIA iopamidol 2021-11- No [id number] 65mL 65 mL, U nivers (ISOVUE 0- 10-19 Intravenou ity o f 370-500 mL) 00:15: 00:15 s, ONCE, 1 [place] injection 00 :00 dose, On Medica l 65 mL [facility] Branch 09/15/22 at 1915, Routine metFORMIN 2021-11- No [id number] 500mg Take 1 Univers 500 mg 0-18 -18 tablet by ity of tablet 00:00: 05:59 mouth in [place] 00 :00 the Medical morning Branch and 1 tablet in the evening. Do all this for 30 days. metFORMIN 2021-11- No [id number] 500mg Take 1 Univers 500 mg 0-18 11-18 tablet by ity of tablet 00:00: 05:59 mouth in [place] 00 :00 the Medical morning Branch and 1 tablet in the evening. Do all this for 30 days. insulin 2021- No 10U 10 Units, Univ ers regular 08-21 Subcutaneo ity o f human 02:45: 01:57 , ONCE, [place] (HUMULIN R) 00 :00 1 dose, On [...] :00 ONCE, 1 Medical dose, On Branch [place] 08/20/22 at 2100, Routine NaCl 0.9% 2021- No 1000mL at 999 Uni vers (NS) bolus 08-21 mL/hr, ity of infusion 02:00: 02:51 1,000 mL, Sai as 1,000 mL 00 :00 IV Medical Infusion, Branch ONCE, 1 dose, On [place] 08/20/22 at 2100, PATRIZIA iopamidol 2021- No [id number] 55mL 55 mL, Univers (ISOVUE 8-15 08-15 [...] Medical Infusion, Branch ONCE, 1 dose, On [facility] 07/13/22 at 1715, PATRIZIA ondansetron Yes [id number] 4mg Take 1 Univers 4 mg 8-15 tablet by ity of disintegrat 00:00: mouth [place] ing tablet 00 every 8 Medica l (eight) Branch hours as needed for Nausea and Vomiting (N/V). dicyclomine Yes [id number] 20mg Take 1 Univers 20 mg 8-15 tablet by ity of tablet 00:00: mouth 4 [place] (four) Medical times Branch daily as needed for Abdominal pain. ondansetron 2022-0 Yes [id number] 4mg Take 1 Univers 4 mg 8-15 tablet by ity of disintegrat 00:00: mouth [place] ing tablet 00 every 8 Medica l (eight) Branch hours as needed for Nausea and Vomiting (N/V). dicyclomine 2022-0 Yes [id number] 20mg Take 1 Univers 20 mg 8-15 tablet by ity of tablet 00:00: mouth 4 [place] (four) Medical times Branch daily as needed for Abdominal pain. ondansetron 2-0 Yes [id number] 4mg Take 1 Univers 4 mg 8-15 tablet by ity of disintegrat 00:00: mouth [place] ing tablet 00 every 8 Medica l (eight) Branch hours as needed for Nausea and Vomiting (N/V). dicyclomine 2-0 Yes [id number] 20mg Take 1 Univers 20 mg 8-15 tablet by ity of tablet 00:00: mouth (four) Medical times Branch daily as needed for Abdominal pain. ondansetron 2-0 Yes [id number] 4mg Take 1 Univers 4 mg 8-15 tablet by ity of disintegrat 00:00: mouth [place] ing tablet 00 every 8 Medica l (eight) Branch hours as needed for Nausea and Vomiting (N/V). dicyclomine 2-0 Yes [id number] 20mg Take 1 Univers 20 mg 8-15 tablet by ity of tablet 00:00: mouth (four) Medical times Branch daily as needed for Abdominal pain. ondansetron 2022-0 Yes [id number] 4mg Take 1 Univers 4 mg 8-15 tablet by ity of disintegrat 00:00: mouth [place] ing tablet 00 every 8 Medica l (eight) Branch hours as needed for Nausea and Vomiting (N/V). dicyclomine 2022-0 Yes [id number] 20mg Take 1 Univers 20 mg 8-15 tablet by ity of tablet 00:00: mouth 4 00 (four) Medical times Branch daily as needed for Abdominal pain. ondansetron 2022-0 Yes [id number] 4mg Take 1 Univers 4 mg 8-15 tablet by ity of disintegrat 00:00: mouth [place] ing tablet 00 every 8 Medica l (eight) Branch hours as needed for Nausea and Vomiting (N/V). dicyclomine 2022-0 Yes [id number] 20mg Take 1 Univers 20 mg 8-15 tablet by ity of tablet 00:00: mouth 4 [place] 00 (four) Medical times Branch daily as needed for Abdominal pain. ondansetron 2022-0 Yes [id number] 4mg Take 1 Univers 4 mg 8-15 tablet by ity of disintegrat 00:00: mouth [place] ing tablet 00 every 8 Medica l (eight) Branch hours as needed for Nausea and Vomiting (N/V). dicyclomine 2022-0 Yes [id number] 20mg Take 1 Univers 20 mg 8-15 tablet by ity of tablet 00:00: mouth 4 (four) Medical times Branch daily as needed for Abdominal pain. ondansetron 2022-0 Yes [id number] 4mg Take 1 Univers 4 mg 8-15 tablet by ity of disintegrat 00:00: mouth [place] ing tablet 00 every 8 Medica l (eight) Branch hours as needed for Nausea and Vomiting (N/V). dicyclomine 2022-0 Yes [id number] 20mg Take 1 Univers 20 mg 8-15 tablet by ity of tablet 00:00: mouth (four) Medical times Branch daily as needed for Abdominal pain. ondansetron 2022-0 Yes [id number] 4mg Take 1 Univers 4 mg 8-15 tablet by ity of disintegrat 00:00: mouth [place] ing tablet 00 every 8 Medica l (eight) Branch hours as needed for Nausea and Vomiting (N/V). dicyclomine 2022-0 Yes [id number] 20mg Take 1 Univers 20 mg 8-15 tablet by ity of tablet 00:00: mouth 4 (four) Medical times Branch daily as needed for Abdominal pain. ondansetron 2022-0 Yes [id number] 4mg Take 1 Univers 4 mg 8-15 tablet by ity of disintegrat 00:00: mouth [place] ing tablet 00 every 8 Medica l (eight) Branch hours as needed for Nausea and Vomiting (N/V). dicyclomine 2022-0 Yes [id number] 20mg Take 1 Univers 20 mg 8-15 tablet by ity of tablet 00:00: mouth 4 [place] (four) Medical times Branch daily as needed for Abdominal pain. ondansetron 2-0 Yes [id number] 4mg Take 1 Univers 4 mg 8-15 tablet by ity of disintegrat 00:00: mouth [place] ing tablet 00 every 8 Medica l (eight) Branch hours as needed for Nausea and Vomiting (N/V). dicyclomine 2022-0 Yes [id number] 20mg Take 1 Univers 20 mg 8-15 tablet by ity of tablet 00:00: mouth 4 (four) Medical times Branch daily as needed for Abdominal pain. ondansetron 2-0 Yes [id number] 4mg Take 1 Univers 4 mg 8-15 tablet by ity of disintegrat 00:00: mouth [place] ing tablet 00 every 8 Medica l (eight) Branch hours as needed for Nausea and Vomiting (N/V). dicyclomine 2021-0 Yes [id number] 20mg Take 1 Univers 20 mg 8-15 tablet by ity of tablet 00:00: mouth (four) Medical times Branch daily as needed for Abdominal pain. ondansetron 2021-0 Yes [id number] 4mg Take 1 Univers 4 mg 8-15 tablet by ity of disintegrat 00:00: mouth [place] ing tablet 00 every 8 Medica l (eight) Branch hours as needed for Nausea and Vomiting (N/V). dicyclomine 2-0 Yes [id number] 20mg Take 1 Univers 20 mg 8-15 tablet by ity of tablet 00:00: mouth (four) Medical times Branch daily as needed for Abdominal pain. insulin 2021- No 10U 10 Units, Univ ers regular 05-11 Subcutaneo ity o f human 23:00: 22:19 , ONCE, [place] (HUMULIN R) 00 :00 1 dose, On Me dical injection Mon Branch 10 Units 05/11/22 at 1800, Routine NaCl 0.9% 2021- No 1000mL at 999 Uni vers (NS) bolus 05-11 mL/hr, ity of infusion 22:00: 22:55 1,000 mL, Sai as 1,000 mL 00 :00 IV Medical Infusion, Branch ONCE, 1 dose, On 05/11/22 at 1700, PATRIZIA cefdinir 2021- No [id number] 300mg Take 1 U nivers 300 mg 05-11 capsule by ity of capsule 00:00: 04:59 mouth 2 [place] 00 :00 (two) Medical times Branch daily for 7 days. acetaminoph 2021- No 650mg 650 mg, U nivers en 04-04 Oral, ity of (TYLENOL) 12:30: 11:28 [place]CE, [place] 650 00 :00 dose, On Medic al mg 04/04/22 Branch at 0730, PATRIZIA cefTRIAXone 2021- No 1000mg 1,000 mg, Univers (ROCEPHIN) 04-04 IV ity of 1,000 mg in 11:15: 11:55 [place], [place] NaCl 0.9% 00 :00 ONCE, 1 [...] o f human 10:30: 09:36 , ONCE, [place] (HUMULIN R) 00 :00 1 dose, On Me dical injection 04/04/22 Bran ch 10 Units at 0530, Routine NaCl 0.9% 2021- No 1000mL at 999 Uni vers (NS) IV 5-07 05-07 mL/hr, ity of infusion 10:30: 11:55 [place] 1,000 mL 00 :00 s, ONCE, 1 Medic al dose, On Branch 04/04/22 at 0530, PATRIZIA glipiZIDE 2021-0 Yes [id number] 2.5mg Take 1 Univers XL 2.5 mg 5-07 tablet by ity o f 24 hr 00:00: mouth [place] tablet 00 daily with Medical breakfast. Branch canaglifloz 2021-0 Yes [id number] 1{tbl} Take 1 Univers in-metformi 5-07 tablet by ity of n 00:00: mouth 2 [place] (INVOKAMET) 00 (two) Medical 150-1,000 times Branch mg per daily. tablet cefdinir 2021-0 Yes [id number] 300mg Take 1 Un sh[place] 300 mg 5-07 capsule by ity of capsule 00:00: mouth [place] 00 every 12 Medical (twelve) Branch hours. glipiZIDE 2021-0 Yes [id number] 2.5mg Take 1 Univers XL 2.5 mg 5-07 tablet by ity o f 24 hr 00:00: mouth [place] tablet 00 daily with Medical breakfast. Branch canaglifloz 2021-0 Yes [id number] 1{tbl} Take 1 Univers in-metformi 5-07 tablet by ity of n 00:00: mouth 2 [place] (INVOKAMET) 00 (two) Medical 150-1,000 times Branch mg per daily. tablet cefdinir 2-0 Yes [id number] 300mg Take 1 Un shawn 300 mg 5-07 capsule by ity of capsule 00:00: mouth [place] 00 every 12 Medical (twelve) Branch hours. glipiZIDE 2-0 Yes [id number] 2.5mg Take 1 Univers XL 2.5 mg 5-07 tablet by ity o f 24 hr 00:00: mouth [place] tablet 00 daily with Medical breakfast. Branch canaglifloz 2-0 Yes [id number] 1{tbl} Take 1 Univers in-metformi 5-07 tablet by ity of n 00:00: mouth 2 [place] (INVOKAMET) 00 (two) Medical 150-1,000 times Branch mg per daily. tablet cefdinir 2022-0 Yes [id number] 300mg Take 1 Un shawn 300 mg 5-07 capsule by ity of capsule 00:00: mouth [place] 00 every 12 Medical (twelve) Branch hours. glipiZIDE 2022-0 Yes [id number] 2.5mg Take 1 Univers XL 2.5 mg 5-07 tablet by ity o f 24 hr 00:00: mouth [place] tablet 00 daily with Medical breakfast. Branch canaglifloz 2022-0 Yes [id number] 1{tbl} Take 1 Univers in-metformi 5-07 tablet by ity of n 00:00: mouth 2 [place] (INVOKAMET) 00 (two) Medical 150-1,000 times Branch mg per daily. tablet cefdinir 2022-0 Yes [id number] 300mg Take 1 Un shawn 300 mg 5-07 capsule by ity of capsule 00:00: mouth [place] 00 every 12 Medical (twelve) Branch hours. glipiZIDE 2022-0 Yes [id number] 2.5mg Take 1 Univers XL 2.5 mg 5-07 tablet by ity o f 24 hr 00:00: mouth [place] tablet 00 daily with Medical breakfast. Branch canaglifloz 2022-0 Yes [id number] 1{tbl} Take 1 Univers in-metformi 5-07 tablet by ity of n 00:00: mouth 2 [place] (INVOKAMET) 00 (two) Medical 150-1,000 times Branch mg per daily. tablet cefdinir 2022-0 Yes [id number] 300mg Take 1 Un shawn 300 mg 5-07 capsule by ity of capsule 00:00: mouth [place] 00 every 12 Medical (twelve) Branch hours. glipiZIDE 2022-0 Yes [id number] 2.5mg Take 1 Univers XL 2.5 mg 5-07 tablet by ity o f 24 hr 00:00: mouth [place] tablet 00 daily with Medical breakfast. Branch canaglifloz 2022-0 Yes [id number] 1{tbl} Take 1 Univers in-metformi 5-07 tablet by ity of n 00:00: mouth 2 [place] (INVOKAMET) 00 (two) Medical 150-1,000 times Branch mg per daily. tablet glipiZIDE 2022-0 Yes [id number] 2.5mg Take 1 Univers XL 2.5 mg 5-07 tablet by ity o f 24 hr 00:00: mouth [place] tablet 00 daily with Medical breakfast. Branch canaglifloz Yes [id number] 1{tbl} Take 1 Univers in-metformi 5-07 tablet by ity of n 00:00: mouth 2 [place] (INVOKAMET) 00 (two) Medical 150-1,000 times Branch mg per daily. tablet glipiZIDE Yes [id number] 2.5mg Take 1 Univers XL 2.5 mg 5-07 tablet by ity o f 24 hr 00:00: mouth [place] tablet 00 daily with Medical breakfast. Branch glipiZIDE 2022- No [id number] 2.5mg Take 1 Univers XL 2.5 mg 5-07 -02 tablet by ity of 24 hr 00:00: 00:00 mouth [place] tablet 00 :00 daily with Medical breakfast. Branch canaglifloz 2021- No [id number] 1{tbl} Take 1 Univers in-metformi 5-07 -06 tablet by it y of n 00:00: 00:00 mouth 2 [place] (INVOKAMET) 00 :00 (two) Medical 150-1,000 times Branch mg per daily. tablet cefdinir 2021- No [id number] 300mg Take 1 U nivers 300 mg 04-04- capsule by ity of capsule 00:00: 00:00 mouth [place] 00 :00 every 12 Medical (twelve) Branch hours. cefTRIAXone 2021- No 1000mg 1,000 mg, Univers (ROCEPHIN) 12-06- IV ity of 1,000 mg in 17:45: 17:26 [place], [place] NaCl 0.9% 00 :00 ONCE, 1 Medical (NS) 50 mL dose, On [facility] h MINI-BAG 12/06/21 at 1145, Administer over 30 Minutes, 50 mL
R lianne for Anti-Infec tive: Documented Infection< br>Documen jesus Infection Site: Urine<br&g t;Duration of Therapy: Other (see Comments) iopamidol 2021- No [id number] 100mL 100 mL, Univers (ISOVUE 1-08 -08 Intravenou ity o f 370-500 mL) 17:15: 15:50 s, ONCE, 1 [place] injection 00 :00 dose, On Medica l 100 mL 12/06/21 Branch at 1115, Routine cephALEXin 2022-0 Yes [id number] 500mg Take 1 Univers (KEFLEX) 1-08 capsule by ity o f 500 mg 00:00: mouth 3 [place] capsule 00 (three) Medical times Branch daily. cephALEXin 2022-0 Yes [id number] 500mg Take 1 Univers (KEFLEX) 1-08 capsule by ity o f 500 mg 00:00: mouth 3 [place] capsule 00 (three) Medical times Branch daily. cephALEXin 2022-0 Yes [id number] 500mg Take 1 Univers (KEFLEX) 1-08 capsule by ity o f 500 mg 00:00: mouth 3 [place] capsule 00 (three) Medical times Branch daily. cephALEXin 2022-0 Yes [id number] 500mg Take 1 Univers (KEFLEX) 1-08 capsule by ity o f 500 mg 00:00: mouth 3 [place] capsule 00 (three) Medical times Branch daily. cephALEXin 2022-0 Yes [id number] 500mg Take 1 Univers (KEFLEX) 1-08 capsule by ity o f 500 mg 00:00: mouth 3 [place] capsule 00 (three) Medical times Branch daily. cephALEXin 2022-0 Yes [id number] 500mg Take 1 Univers (KEFLEX) 1-08 capsule by ity o f 500 mg 00:00: mouth 3 [place] capsule 00 (three) Medical times Branch daily. cephALEXin 2022-0 2- No [id number] 500mg Take 1 Univers (KEFLEX) 1-08 11-03 capsule by ity of 500 mg 00:00: 00:00 mouth 3 [place] capsule 00 :00 (three) Medical times Branch daily. glipiZIDE Yes [id number] 2.5mg Take 1 [facility] XL 2.5 mg 6-15 tablet by ity o f 24 hr 00:00: mouth [place] tablet 00 daily with Medical breakfast. Branch glipiZIDE Yes [id number] 2.5mg Take 1 [facility] XL 2.5 mg 6-15 tablet by ity o f 24 hr 00:00: mouth [place] tablet 00 daily with Medical breakfast. Branch glipiZIDE Yes [id number] 2.5mg Take 1 [facility] XL 2.5 mg 6-15 tablet by ity o f 24 hr 00:00: mouth [place] tablet 00 daily with Medical breakfast. [place] glipiZIDE Yes [id number] 2.5mg Take 1 Univers XL 2.5 mg 6-15 tablet by ity o f 24 hr 00:00: mouth [place] tablet 00 daily with Medical breakfast. [place] glipiZIDE Yes [id number] 2.5mg Take 1 Univers XL 2.5 mg 6-15 tablet by ity o f 24 hr 00:00: mouth [place] tablet 00 daily with Medical breakfast. [place] glipiZIDE Yes [id number] 2.5mg Take 1 [facility] XL 2.5 mg 6-15 tablet by ity o f 24 hr 00:00: mouth [place] tablet 00 daily with Medical breakfast. [place] glipiZIDE Yes [id number] 2.5mg Take 1 [facility] XL 2.5 mg 6-15 tablet by ity o f 24 hr 00:00: mouth [place] tablet 00 daily with Medical breakfast. [place] glipiZIDE Yes [id number] 2.5mg Take 1 Univers XL 2.5 mg 6-15 tablet by ity o f 24 hr 00:00: mouth [place] tablet 00 daily with Medical breakfast. [place] glipiZIDE Yes [id number] 2.5mg Take 1 Univers XL 2.5 mg 6-15 tablet by ity o f 24 hr 00:00: mouth [place] tablet 00 daily with Medical breakfast. [place] glipiZIDE Yes [id number] 2.5mg Take 1 Univers XL 2.5 mg 6-15 tablet by ity o f 24 hr 00:00: mouth [place] tablet 00 daily with Medical breakfast. [place] glipiZIDE Yes [id number] 2.5mg Take 1 [facility] XL 2.5 mg 6-15 tablet by ity o f 24 hr 00:00: mouth [place] tablet 00 daily with Medical breakfast. [place] glipiZIDE Yes [id number] 2.5mg Take 1 [facility] XL 2.5 mg 6-15 tablet by ity o f 24 hr 00:00: mouth [place] tablet 00 daily with Medical breakfast. [place] glipiZIDE Yes [id number] 2.5mg Take 1 [facility] XL 2.5 mg 6-15 tablet by ity o f 24 hr 00:00: mouth [place] tablet 00 daily with Medical breakfast. Branch glipiZIDE Yes [id number] 2.5mg Take 1 [facility] XL 2.5 mg 6-15 tablet by ity o f 24 hr 00:00: mouth [place] tablet 00 daily with Medical breakfast. Branch glipiZIDE Yes [id number] 2.5mg Take 1 [facility] XL 2.5 mg 6-15 tablet by ity o f 24 hr 00:00: mouth [place] tablet 00 daily with Medical breakfast. Branch glipiZIDE Yes [id number] 2.5mg Take 1 [facility] XL 2.5 mg 6-15 tablet by ity o f 24 hr 00:00: mouth [place] tablet 00 daily with Medical breakfast. [place] glipiZIDE Yes [id number] 2.5mg Take 1 [facility] XL 2.5 mg 6-15 tablet by ity o f 24 hr 00:00: mouth [place] tablet 00 daily with Medical breakfast. Branch INVOKAMET Yes [id number] TAKE ONE Univers 150-1,000 3-06 TABLET BY ity o f mg per 00:00: MOUTH [place] tablet 00 TWICE Medical DAILY Branch INVOKAMET Yes [id number] TAKE ONE Univers 150-1,000 3-06 TABLET BY ity o f mg per 00:00: MOUTH [place] tablet 00 TWICE Medical DAILY Branch INVOKAMET Yes [id number] TAKE ONE Univers 150-1,000 3-06 TABLET BY ity o f mg per 00:00: MOUTH [place] tablet 00 TWICE Medical DAILY Branch INVOKAMET Yes [id number] TAKE ONE Univers 150-1,000 3-06 TABLET BY ity o f mg per 00:00: MOUTH [place] tablet 00 TWICE Medical DAILY Branch INVOKAMET Yes [id number] TAKE ONE Univers 150-1,000 3-06 TABLET BY ity o f mg per 00:00: MOUTH [place] tablet 00 TWICE Medical DAILY Branch INVOKAMET Yes [id number] TAKE ONE Univers 150-1,000 3-06 TABLET BY ity o f mg per 00:00: MOUTH [place] tablet 00 TWICE Medical DAILY Branch INVOKAMET Yes [id number] TAKE ONE Univers 150-1,000 3-06 TABLET BY ity o f mg per 00:00: MOUTH [place] tablet 00 TWICE Medical DAILY Branch INVOKAMET 20180 Yes [id number] TAKE ONE Univers 150-1,000 3-06 TABLET BY ity o f mg per 00:00: MOUTH [place] tablet 00 TWICE Medical DAILY Branch INVOKAMET 20180 Yes [id number] TAKE ONE Univers 150-1,000 3-06 TABLET BY ity o f mg per 00:00: MOUTH [place] tablet 00 TWICE Medical DAILY Branch INVOKAMET 0 2022- No [id number] TAKE ONE Univers 150-1,000 3-06 12-06 TABLET [...] Medical times Branch daily. lovastatin 2016-11 Yes [id number] 40mg Take 1 U nivers 40 mg 0-26 tablet by ity of tablet 00:00: mouth at [place] [address] bedtime. Medical Branch lovastatin 2016-11 Yes [id number] 40mg Take 1 U nivers 40 mg 0-26 tablet by ity of tablet 00:00: mouth at [place] 00 bedtime. Medical Branch lovastatin 2016-11 Yes [id number] 40mg Take 1 U nivers 40 mg 0-26 tablet by ity of tablet 00:00: mouth at [place] 00 bedtime. Medical Branch lovastatin 2016-11 Yes [id number] 40mg Take 1 U nivers 40 mg 0-26 tablet by ity of tablet 00:00: mouth at [place] 00 bedtime. Medical Branch lovastatin 2016-11 Yes [id number] 40mg Take 1 U nivers 40 mg 0-26 tablet by ity of tablet 00:00: mouth at [place] [address] bedtime. Medical Branch lovastatin 2016-11 Yes [id number] 40mg Take 1 U nivers 40 mg 0-26 tablet by ity of tablet 00:00: mouth at [place] [address] bedtime. Medical Branch lovastatin 2016-11 Yes [id number] 40mg Take 1 U nivers 40 mg 0-26 tablet by ity of tablet 00:00: mouth at [place] [address] bedtime. Medical Branch lovastatin 2016-11 Yes [id number] 40mg Take 1 U nivers 40 mg 0-26 tablet by ity of tablet 00:00: mouth at [place] [address] bedtime. Medical Branch lovastatin 2016-11 Yes [id number] 40mg Take 1 U nivers 40 mg 0-26 tablet by ity of tablet 00:00: mouth at [place] [address] bedtime. Medical Branch lovastatin 2016-11 Yes [id number] 40mg Take 1 U nivers 40 mg 0-26 tablet by ity of tablet 00:00: mouth at [place] [address] bedtime. Medical Branch lovastatin 2016-11 Yes [id number] 40mg Take 1 U nivers 40 mg 0-26 tablet by ity of tablet 00:00: mouth at [place] [address] bedtime. Medical Branch lovastatin 2016-11 Yes [id number] 40mg Take 1 U nivers 40 mg 0-26 tablet by ity of tablet 00:00: mouth at [place] [address] bedtime. Medical Branch lovastatin 2016-11 Yes [id number] 40mg Take 1 U nivers 40 mg 0-26 tablet by ity of tablet 00:00: mouth at [place] [address] bedtime. Medical Branch lovastatin 2016-11 Yes [id number] 40mg Take 1 U nivers 40 mg 0-26 tablet by ity of tablet 00:00: mouth at [place] [address] bedtime. Medical Branch lovastatin 2016-11 Yes [id number] 40mg Take 1 U nivers 40 mg 0-26 tablet by ity of tablet 00:00: mouth at [place] [address] bedtime. Medical Branch lovastatin 2016-11 Yes [id number] 40mg Take 1 U nivers 40 mg 0-26 tablet by ity of tablet 00:00: mouth at [place] [address] bedtime. Medical Branch lovastatin 2016-11 Yes [id number] 40mg Take 1 U nivers 40 mg 0-26 tablet by ity of tablet 00:00: mouth at [place] 00 bedtime. Medical Branch traMADOL 2017-0 Yes 50mg [...] unrelieved by non-narcot ic analgesics . traMADOL 2016-0 Yes 50mg Take 50 mg Uni vers (ULTRAM) 50 7-06 by mouth ity of mg tablet 10:55: every 12 [place] 44 (twelve) Medical hours as Branch needed for Pain unrelieved by non-narcot ic analgesics . traMADOL 0 Yes 50mg Take 50 mg Uni vers (ULTRAM) 50 7-06 by mouth ity of mg tablet 10:55: every 12 [place] 44 (twelve) Medical hours as Branch needed for Pain unrelieved by non-narcot ic analgesics . traMADOL 0 Yes 50mg Take 50 mg Uni vers (ULTRAM) 50 7-06 by mouth ity of mg tablet 10:55: every 12 [place] 44 (twelve) Medical hours as Branch needed for Pain unrelieved by non-narcot ic analgesics . traMADOL 0 Yes 50mg Take 50 mg Uni vers [...] mg EC 00 daily. Medical tablet Branch Vital Signs Vital Name Observation Time Observation Value Comments Source Systolic blood 2023-01-21 16:42:00 135 mm[Hg] Univer sity of pressure [place] [facility] [place] Diastolic blood 2023-01-21 16:42:00 85 mm[facility]Hg] [facility] [place] [facility] Heart rate 2023-01-21 16:42:00 79 /min [facility] Body temperature 2023-01-21 16:42:00 36.33 Anila Univ ersity [facility] [place] [facility] Respiratory rate 2023-01-21 16:42:00 16 /min Univ ers[facility] [place] [facility] Body height 2023-01-21 16:42:00 157.5 cm [facility] [place] [facility] Body weight 2023-01-21 16:42:00 73.619 kg [facility] [place] [facility] BMI 2023-01-21 16:42:00 29.69 kg/m2 [facility] [place] [facility] Oxygen saturation in 2023-01-21 16:42:00 99 /min University of Arterial blood by [place] [employer] Pulse oximetry Branch Systolic blood 2023-01-04 03:03:00 168 mm[Hg] Univer sity of pressure [place] [facility] Diastolic blood 2023-01-04 03:03:00 69 mm[Hg] Unive rsity of pressure [place] [facility] Heart rate 2023-01-04 03:03:00 84 /min [facility] [place] [facility] Respiratory rate 2023-01-04 03:03:00 20 /min Univ ers[facility] [place] [facility] Oxygen saturation in 2023-01-04 03:03:00 97 /min University of Arterial blood by [place] [employer] Pulse oximetry Branch Body temperature 2023-01-04 01:40:00 37.39 Anila [facility] [place] [facility] Body height 2023-01-04 01:40:00 157.5 cm Univers[facility] [place] [facility] Body weight 2023-01-04 01:40:00 71.215 kg [facility] [place] [facility] BMI 2023-01-04 01:40:00 28.72 kg/m2 [facility] [place] [facility] Respiratory rate 2022-12-11 00:54:00 22 /min Univ ers[facility] [place] [facility] Oxygen saturation in 2022-12-11 00:54:00 100 /min University of Arterial blood by [place] [employer] Pulse oximetry Branch Systolic blood 2022-12-11 00:30:00 144 mm[Hg] Univer sity of pressure [place] [facility] Diastolic blood 2022-12-11 00:30:00 78 mm[Hg] Unive rsity of pressure [place] [facility] Heart rate 2022-12-11 00:30:00 99 /min [facility] [place] [facility] Body temperature 2022-12-10 22:24:00 37.11 Anila Univ ersity of [place] [facility] Body height 2022-12-10 22:24:00 157.5 cm Universi ty of [place] [facility] [place] Body weight 2022-12-10 22:24:00 71.215 kg Universi ty of [place] [facility] [place] BMI 2022-12-10 22:24:00 28.72 kg/m2 [facility]i ty of [facility] Branch Systolic blood 2022-11-30 12:06:00 122 mm[Hg] Univer sity of pressure [place] [facility] Diastolic blood 2022-11-30 12:06:00 77 mm[Hg] Unive rsity of pressure [place] [facility] Heart rate 2022-11-30 12:06:00 64 /min Universi ty of [place] [facility] Respiratory rate 2022-11-30 12:06:00 13 /min Univ ersity of [place] [facility] Oxygen saturation in 2022-11-30 12:06:00 95 /min University of Arterial blood by [facility] Pulse oximetry Branch Body temperature 2022-11-30 09:55:00 36.72 Anila Univ ersity of [place] [facility] Body height 2022-11-30 09:55:00 157.5 cm Universi ty of [place] [facility] [place] Body weight 2022-11-30 09:55:00 65.772 kg Universi ty of [place] [facility] [place] BMI 2022-11-30 09:55:00 26.52 kg/m2 Universi ty of [place] [facility] Systolic blood 2022-11-03 23:02:00 148 mm[Hg] Univer sity of pressure [facility] Branch Diastolic blood 2022-11-03 23:02:00 78 mm[Hg] Unive rsity of pressure [place] [facility] Heart rate 2022-11-03 23:02:00 87 /min Universi ty of [place] [facility] Body temperature 2022-11-03 23:02:00 37.44 Anila Univ ersity of [place] [facility] Respiratory rate 2022-11-03 23:02:00 18 /min Univ ersity of [place] [facility] Body height 2022-11-03 23:02:00 157.5 cm Universi ty of [place] [facility] [place] Body weight 2022-11-03 23:02:00 65.772 kg [facility] [place] [facility] BMI 2022-11-03 23:02:00 26.52 kg/m2 [facility] [place] [facility] Oxygen saturation in 2022-11-03 23:02:00 100 /min University of Arterial blood by [facility] Pulse oximetry Branch Systolic blood 2022-10-29 01:23:00 154 mm[Hg] Univer sity of pressure [place] [facility] Diastolic blood 2022-10-29 01:23:00 78 mm[Hg] Unive rsity of pressure [place] [facility] Heart rate 2022-10-29 01:23:00 66 /min [facility] [place] [facility] Respiratory rate 2022-10-29 01:23:00 18 /min Univ ersity [facility] [place] [facility] Oxygen saturation in 2022-10-29 01:23:00 100 /min [facility] of Arterial blood by [facility] Pulse oximetry Branch Body temperature 2022-10-28 21:44:00 37.5 Anila [facility] [place] [facility] Body height 2022-10-28 21:44:00 157.5 cm [facility] [place] [facility] Body weight 2022-10-28 21:44:00 65.772 kg [facility] [place] [facility] BMI 2022-10-28 21:44:00 26.52 kg/m2 [facility] [place] [facility] Systolic blood 2022-10-01 21:51:00 174 mm[Hg] Univer sity of pressure [place] [facility] Diastolic blood 2022-10-01 21:51:00 77 mm[Hg] Unive rsity of pressure [place] [facility] Heart rate 2022-10-01 21:51:00 80 /min [facility] [place] [facility] Body temperature 2022-10-01 21:51:00 37.11 Anila [facility] [place] [facility] Respiratory rate 2022-10-01 21:51:00 18 /min Univ ers[facility] [place] [facility] Body weight 2022-10-01 21:51:00 65.772 kg [facility] [place] [facility] BMI 2022-10-01 21:51:00 26.52 kg/m2 [facility] [place] [facility] Oxygen saturation in 2022-10-01 21:51:00 97 /min [facility] of Arterial blood by [facility] Pulse oximetry Branch Systolic blood 2022-09-16 01:15:00 154 mm[Hg] Univer sity of pressure [place] [facility] Diastolic blood 2022-09-16 01:15:00 84 mm[Hg] Unive rsity of pressure [place] [facility] Heart rate 2022-09-16 01:15:00 65 /min [facility] [place] [facility] Oxygen saturation in 2022-09-16 01:15:00 99 /min University of Arterial blood by [facility] [place] [facility]ron Pulse oximetry Branch Body temperature 2022-09-15 22:45:00 37.11 Anila [facility] ersity [facility] [place] [facility] Respiratory rate 2022-09-15 21:36:00 18 /min Univ ersity [facility] [place] [facility] Body weight 2022-09-15 21:36:00 68.04 kg [facility]i ty [facility] [place] [facility] BMI 2022-09-15 21:36:00 27.44 kg/m2 [facility] [place] [facility] Systolic blood 2022-08-21 02:30:00 159 mm[Hg] Univer sity of pressure [place] [facility] Diastolic blood 2022-08-21 02:30:00 83 mm[Hg] Unive rsity of pressure [place] [facility] Heart rate 2022-08-21 02:30:00 77 /min [facility]i ty [facility] [place] [facility] Respiratory rate 2022-08-21 02:30:00 17 /min Univ ersity [facility] [place] [facility] Oxygen saturation in 2022-08-21 02:30:00 96 /min [facility] of Arterial blood by [facility] Pulse oximetry Branch Body temperature 2022-08-21 01:04:00 37.56 Anila [facility] [place] [facility] Body height 2022-08-21 01:04:00 157.5 cm [facility] [place] [facility] Body weight 2022-08-21 01:04:00 68.04 kg [facility] [place] [facility] BMI 2022-08-21 01:04:00 27.44 kg/m2 [facility] [place] [facility] Systolic blood 2022-07-13 22:20:00 135 mm[Hg] Univer sity of pressure [place] [facility] Diastolic blood 2022-07-13 22:20:00 60 mm[Hg] Unive rsity of pressure [place] [facility] Heart rate 2022-07-13 22:20:00 77 /min [facility]i [facility] [place] [facility] Respiratory rate 2022-07-13 22:20:00 18 /min Univ ersity [facility] [place] [facility] Oxygen saturation in 2022-07-13 22:20:00 98 /min [facility] Arterial blood by [place] [employer] Pulse oximetry Branch Body temperature 2022-07-13 20:44:00 37.22 Anila [facility] [place] [facility] Body height 2022-07-13 20:44:00 157.5 cm [facility] [place] [facility] Body weight 2022-07-13 20:44:00 72.258 kg [facility] [place] [facility] BMI 2022-07-13 20:44:00 29.14 kg/m2 [facility] [place] [facility] Systolic blood 2022-05-11 22:00:00 123 mm[Hg] Univer sity of pressure [place] [facility] Diastolic blood 2022-05-11 22:00:00 66 mm[Hg] Unive rsity of pressure [place] [facility] Heart rate 2022-05-11 22:00:00 76 /min [facility] [place] [facility] Respiratory rate 2022-05-11 22:00:00 17 /min Univ ersity [facility] [place] [facility] Oxygen saturation in 2022-05-11 22:00:00 97 /min [facility] Arterial blood by [place] [employer] Pulse oximetry Branch Body temperature 2022-05-11 20:43:00 36.44 Anila [facility] [place] [facility] Body weight 2022-05-11 20:43:00 65.772 kg [facility] [place] [facility] BMI 2022-05-11 20:43:00 26.52 kg/m2 [facility] [place] [facility] Systolic blood 2022-04-04 12:00:00 130 mm[Hg] Univer sity of pressure [place] [facility] Diastolic blood 2022-04-04 12:00:00 75 mm[Hg] Unive rsity of pressure [place] [facility] Heart rate 2022-04-04 12:00:00 69 /min [facility] [place] [facility] Respiratory rate 2022-04-04 12:00:00 17 /min Univ ers[facility] [place] [facility] Oxygen saturation in 2022-04-04 12:00:00 95 /min [facility] Arterial blood by [place] [employer] Pulse oximetry Branch Body temperature 2022-04-04 09:00:00 37.28 Anila [facility] [place] [facility] Systolic blood 2021-12-06 17:00:00 134 mm[Hg] Univer sity of pressure [facility] Diastolic blood 2021-12-06 17:00:00 77 mm[Hg] Unive rsity of pressure [facility] Heart rate 2021-12-06 17:00:00 62 /min Universi ty [facility] [place] [facility] Respiratory rate 2021-12-06 17:00:00 16 /min Univ ersity of [place] [facility] Oxygen saturation in 2021-12-06 17:00:00 98 /min [facility] of Arterial blood by [facility] Pulse oximetry Branch Body temperature 2021-12-06 14:17:00 37.28 [facility] 2021-12-06 14:17:00 65.772 kg Universi ty [facility] [place] [facility] BMI 2021-12-06 14:17:00 26.52 kg/m2 [facility] Systolic blood 2021-12-06 08:13:00 141 mm[Hg] Univer sity of [facility] Diastolic blood 2021-12-06 08:13:00 69 mm[Hg] Unive rsity of [facility] Oxygen saturation in 2021-12-06 08:13:00 98 /min [facility] of Arterial blood by [facility] Pulse oximetry Branch Heart rate 2021-12-06 07:00:00 74 /min Universi ty [facility] [place] [facility] Respiratory rate 2021-12-06 07:00:00 18 /min [facility] Body temperature 2021-12-06 03:56:00 36.61 [facility] Body height 2021-12-06 03:56:00 157.5 cm [facility] Body weight 2021-12-06 03:56:00 65.772 [facility] 2021-12-06 03:56:00 26.52 kg/m2 [facility] Procedures Procedure Date / Time Performing Clinician Source Performed ASSIGNMENT OF BENEFITS 2023-01-21 16:31:02 Doctor Unassigned, No [facility] POCT GLUCOSE (AUTOMATED) 2023-01-04 03:43:00 Charlette Holloway [facility] POCT GLUCOSE (AUTOMATED) 2023-01-04 03:03:00 Charlette Holloway [facility] CT ABDOMEN PELVIS W 2023-01-04 02:44:37 [facility] CONTRAST Medical Branch LIPASE 2023-01-04 02:10:00 Charlette Holloway [facility] COMP. METABOLIC PANEL 2023-01-04 02:10:00 Charlette Holloway [facility] ([id number]) Medical [place] CBC WITH DIFF 2023-01-04 02:10:00 Charlette Holloway [facility] URINALYSIS 2023-01-04 02:10:00 Charlette Holloway [facility] CONSENT/REFUSAL FOR 2023-01-04 01:25:15 Doctor Unassigned, No Un [facility] DIAGNOSIS AND TREATMENT Name Medical Branch TROPONIN I 2022-12-10 23:09:00 Jonathan Baez [facility] COMP. METABOLIC PANEL 2022-12-10 23:09:00 Jonathan Baez [facility] ([id number]) [facility] CBC WITH DIFF 2022-12-10 23:09:00 Jonathan Baez [facility] PROTHROMBIN TIME / INR 2022-12-10 23:09:00 Jonathan Baez [facility] ACTIVATED PARTIAL 2022-12-10 23:09:00 Jonathan Baez [facility] THRMPLAS SUNIL [facility] RAPID INFLUENZA A/B 2022-12-10 23:09:00 Jonathan Baez [facility] N-TERMINAL PRO-BNP 2022-12-10 23:09:00 Jonathan Baez [facility] COVID-19 (ID NOW RAPID 2022-12-10 23:09:00 [facility] TESTING) [facility] XR CHEST 1 VW 2022-12-10 23:04:00 Jonathan Baez [facility] POCT GLUCOSE (AUTOMATED) 2022-11-30 12:09:00 [facility]22-11-30 11:57:00 Jenny Burch [facility] CT ABDOMEN PELVIS W 2022-11-30 10:46:34 Jenny Burch [facility] Branch EKG-12 LEAD 2022-11-30 10:04:36 Jenny Burch [facility] LIPASE 2022-11-30 09:57:00 Jenny Burch [facility] TROPONIN I 2022-11-30 09:57:00 Jenny Burch [facility] COMP. METABOLIC PANEL 2022-11-30 09:57:00 [facility] ([id number]) [facility] Branch CBC WITH DIFF 2022-11-30 09:57:00 Jenny Burch [facility] POCT GLUCOSE (AUTOMATED) 2022-11-30 09:51:00 Doctor Unassigned, No [facility] POCT GLUCOSE (AUTOMATED) 2022-11-04 02:29:00 Kobe Valencia [facility] TROPONIN I 2022-11-04 00:53:00 Kobe Valencia [facility] BASIC METABOLIC PANEL 2022-11-04 00:53:00 Kobe Valencia [facility] (NA, K, CL, CO2, Medical Branch GLUCOSE, BUN, CREATININE, CA) CBC WITH DIFF 2022-11-04 00:53:00 Kobe Valencia [facility] URINALYSIS 2022-11-04 00:53:00 Kobe Valencia [facility] POCT GLUCOSE (AUTOMATED) 2022-11-04 00:46:00 Kobe Valencia [facility] NOTICE OF PRIVACY 2022-11-03 22:47:19 Doctor Unassigned, No [facility] PRACTICES [facility] CONSENT/REFUSAL FOR 2022-11-03 22:46:47 [facility] URINALYSIS 2022-10-28 23:37:00 Jane Kyle [facility] XR CHEST 1 VW 2022-10-28 23:01:06 Jane Kyle [facility] LIPASE 2022-10-28 21:52:00 Jane Kyle [facility] MAGNESIUM 2022-10-28 21:52:00 Jane Kyle [facility] TROPONIN I 2022-10-28 21:52:00 Jane Kyle [facility] COMP. METABOLIC PANEL 2022-10-28 21:52:00 Jane Kyle [facility] ([id number]) Medical Branch CBC WITH DIFF 2022-10-28 21:52:00 Jane Kyle [facility] RAPID STREP SCREEN FOR 2022-10-28 21:47:00 [facility] GROUP A [facility] RAPID INFLUENZA A/B 2022-10-28 21:47:00 Jane Kyle [facility] CONSENT/REFUSAL FOR 2022-10-01 21:40:59 Doctor Unassigned, No Un [facility] DIAGNOSIS AND TREATMENT Name [facility] POCT GLUCOSE(AGE 2022-09-16 00:56:00 Jane Kyle [facility]ana [facility] >30DAYS) [facility] Branch POCT GLUCOSE (AUTOMATED) 2022-09-16 00:54:00 Jane Kyle [facility] CT ABDOMEN PELVIS W 2022-09-15 23:22:40 Jane Kyle [facility] CONTRAST [facility] Branch LIPASE 2022-09-15 21:53:00 Amadou Doty [facility] TROPONIN I 2022-09-15 21:53:00 Jane Kyle [facility] COMP. METABOLIC PANEL 2022-09-15 21:53:00 [facility] ([id number] Branch CBC WITH DIFF 2022-09-15 21:53:00 Aamdou Doty [facility] URINALYSIS 2022-09-15 21:53:00 Amadou Doty [facility] POCT GLUCOSE (AUTOMATED) 2022-08-21 01:57:00 Xiomara Hernandez [facility] BASIC METABOLIC PANEL 2022-08-21 01:15:00 Xiomara Hernandez Un [facility] (NA, K, CL, CO2, Medical Branch GLUCOSE, BUN, CREATININE, CA) CBC WITH DIFF 2022-08-21 01:15:00 Xiomara Hernandez [facility] CT ABDOMEN PELVIS W 2022-07-13 22:19:12 Argelia Carson [facility] CONTRAST Medical Branch LIPASE 2022-07-13 20:55:00 Charlette Holloway [facility] MAGNESIUM 2022-07-13 20:55:00 Charlette Holloway [facility] COMP. METABOLIC PANEL 2022-07-13 20:55:00 Charlette Holloway [facility] ([id number]) [facility] CBC WITH DIFF 2022-07-13 20:55:00 Charlette Holloway [facility] URINALYSIS 2022-07-13 20:55:00 Charlette Holloway [facility] POCT GLUCOSE (AUTOMATED) 2022-05-11 22:54:00 Jc Mirza [facility] POCT GLUCOSE (AUTOMATED) 2022-05-11 22:16:00 Jc Mirza [facility] XR CHEST 1 VW 2022-05-11 21:12:40 Jc Mirza [facility] LIPASE 2022-05-11 21:10:00 Jc Mirza [facility] COMP. METABOLIC PANEL 2022-05-11 21:10:00 Jc Mirza [facility] ([id number]) [facility] CBC WITH DIFF 2022-05-11 21:10:00 Jc Mirza [facility] URINALYSIS 2022-05-11 21:10:00 Jc Mirza [facility] N-TERMINAL PRO-BNP 2022-05-11 21:10:00 Jc Mirza [facility] COVID-19 (ID NOW RAPID 2022-05-11 21:10:00 Jc Mirza [facility] POCT GLUCOSE (AUTOMATED) 2022-04-04 11:05:00 [facility] 2022-04-04 10:39:30 Minh Hartman [facility] URINE DRUG (IMMUNOASSAY) 2022-04-04 09:51:00 [facility] 2022-04-04 09:51:00 Minh Hartman [facility] RAPID INFLUENZA A/B 2022-04-04 09:51:00 Minh Hartman [facility] COVID-19 (ID NOW RAPID 2022-04-04 09:51:[address] [facility] TESTING) Medical Branch MAGNESIUM 2022-04-04 09:17:00 Minh Hartman [facility] COMP. METABOLIC PANEL 2022-04-04 09:17:00 [facility]man [facility] ([id number]) [facility] CBC WITH DIFF 2022-04-04 09:17:00 Minh Hartman [facility] POCT GLUCOSE (AUTOMATED) 2022-04-04 09:01:00 Minh Hartman Un [facility] NOTICE OF PRIVACY 2022-04-04 08:54:31 Doctor Unassigned, No [facility] PRACTICES Name [facility] CONSENT/REFUSAL FOR 2022-04-04 08:54:09 Doctor Unassigned, No [facility] DIAGNOSIS AND TREATMENT Name [facility] XR CHEST 1 VW 2021-12-06 16:10:54 Jonathan Baez [facility] CT ABDOMEN PELVIS W 2021-12-06 16:03:48 Jonathan Baez [facility] CONTRAST [facility] CT HEAD WO CONTRAST 2021-12-06 16:03:29 Jonathan Baez [facility] URINALYSIS 2021-12-06 15:17:00 Jonathan Baez [facility] URINE DRUG (IMMUNOASSAY) 2021-12-06 15:17:00 Jonathan Baez [facility] SCREEN W/O REFLEX COVID-19 (ID NOW RAPID 2021-12-06 14:33:00 [facility] TEST[facility]) [facility] AC PANEL 21 + LACTIC 2021-12-06 14:32:00 Jonathan Baez [facility] ACID [facility] PROTHROMBIN TIME / INR 2021-12-06 14:31:00 Jonathan Baez [facility] ACTIVATED PARTIAL 2021-12-06 14:31:00 Jonathan Baez [facility] THRMPLAS [facility] N-TERMINAL PRO-BNP 2021-12-06 14:31:00 Jonathan Baez [facility] TROPONIN I 2021-12-06 14:31:00 Nestor Jonathan [facility] COMP. METABOLIC PANEL 2021-12-06 14:31:00 Jonathan Baez [facility] ([id number]) [facility] SALICYLATE 2021-12-06 14:31:00 Nestor [facility] ETHANOL 2021-12-06 14:31:00 Nestor [facility] CBC WITH DIFF 2021-12-06 14:31:00 Nestor [facility] EKG-12 LEAD 2021-12-06 08:02:36 Minh Hartman [facility] LIPASE 2021-12-06 05:07:00 Minh Hartman [facility] TROPONIN I 2021-12-06 05:07:00 Minh Hartman [facility] COMP. METABOLIC PANEL 2021-12-06 05:07:00 Minh [facility]man [facility] ([id number]) [facility] CBC WITH DIFF 2021-12-06 04:20:00 Minh Hartman [facility] Encounters Start End Encounter Admission Attending Care Care Encounter Source Date/Time Date/Time Type Type Clinicians Facility Department ID 2023-01-25 Outpatient Helen CENTENO [facility] [id number] Univers 16:07:35 [facility] 2023-06-28 2023-06-28 Outpatient PROVIDER, SARAHY GÓMEZ [id number] Sarahy 00:00:00 00:00:00 CAMPAIGNS Seyb old 2023-04-22 2023-04-22 Outpatient Helen CENTENO [facility] [id number] Univers 11:00:00 11:00:00 [facility] 2023-01-21 2023-01-21 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, [facility] [id number] Univers 13:15:00 13:30:00 Visit Mireya Centeno [id number] [place] [id number] Ca junaidjazmin MCKAYEster 353 [facility] 2023-01-21 2023-01-21 Office Monica [facility] [id number] Univers 11:00:00 11:30:00 Visit Mireya SPECIALTY [id number] ity of CARE 4.2.7.2.686 [facility] AT [id number] Ca jordan FORREST 072 [facility] 2023-01-21 2023-01-21 Outpatient R MONICA [facility] [id number] Univers 11:00:00 11:00:00 MIREYA ity [facility] 2023-01-21 2023-01-21 Orders Doctor MAURICE [id number] Univers 00:00:00 00:00:00 Only Unassigned, DAWSON [id number] ity of [facility] 4.2.7.2.686 [facility] [id number] [facility] [address] [place] 2023-01-03 2023-01-03 Emergency X AMIERUST ERT [id number] Univers 19:52:00 21:57:00 CHARLETTE amaya [facility] 2023-01-03 2023-01-03 Emergency AmieRUST [id number] Univers 19:52:00 21:57:00 Charlette WALLACE [id number] ity of [place] 4.2.7.2.686 [facility] [id number] [facility] 0[address] [place] 2022-12-10 2022-12-10 Emergency X NESTORRUST ERT [id number] Univers 16:18:00 18:56:00 JONATHAN amaya [facility] 2022-12-10 2022-12-10 Emergency NestorRUST [id number] Univers 16:18:00 18:56:00 Jonathan WALLACE [id number] i ty [facility] 4.2.7.2.686 [facility] [id number] [address] 2022-11-30 2022-11-30 Emergency X MARCINRUST ERT [id number] Univers 03:53:00 06:45:00 JENNY ity [facility] 2022-11-30 2022-11-30 Emergency BurchRUST [id number] Univers 03:53:00 06:45:00 Jenny WALLACE [id number] ity of [facility] 4.2.7.2.686 [facility] [id number] [address] 2022-11-03 2022-11-03 Emergency X BOZENARUST ERT [id number] Univers 17:03:00 20:37:00 KOBE henriquezy [facility] 2022-11-03 2022-11-03 Emergency [facility] [id number] Univers 17:03:00 20:37:00 Kobe WALLACE [id number] i ty of [place] 4.2.7.2.686 [facility] [id number] [address] 2022-10-28 2022-10-28 Emergency X Jane KYLE [facility] ERT [id number] Univers 15:53:00 20:50:00 ity of [facility] 2022-10-28 2022-10-28 Emergency Jenny Burch [facility] 1.2.840 .114 [id number] Univers 15:53:00 20:50:00 Jane Kyle [id number] ity [facility] [address] [place] [id number] 2022-10-01 2022-10-01 Emergency X NIKKILEODANRUST ERT [id number] Univers 16:52:00 17:11:00 XIOMARA henriquez y of [facility] 2022-10-01 2022-10-01 [facility] [id number] Univers 16:52:00 17:11:00 Xiomara WALLACE [id number] ity [facility] 4.2.7.2.686 [facility] [id number] [address] 2022-09-15 2022-09-15 Emergency X SAROJ, K [facility] ERT [id number] Univers 16:35:00 20:25:00 ity of [facility] 2022-09-15 2022-09-15 Emergency Saroj, [facility] 1.2.840.114 [id number] Univers 16:35:00 20:25:00 Lana BOURGEOISJOANNE 350.1.13.10 i ty of [place] 4.2.7.2.686 [facility] [id number] [address] 2022-08-20 2022-08-20 Emergency [facility] [id number] Univers 20:04:00 21:53:00 DIYAKAELER it [facility] 2022-08-20 2022-08-20 [facility] [id number] Univers 20:04:00 21:53:00 Xiomara WALLACE 350.1.13.10 ity [facility] 4.2.7.2.686 [facility] [id number] [address] 2022-07-13 2022-07-13 Emergency [facility] ERT [id number] Univers 15:46:00 18:03:00 ARGELIA itester [facility] 2022-07-13 2022-07-13 Emergency [facility] 1.2.840.114 [id number] Univers 15:46:00 18:03:00 Argelia WALLACE 350.1.13.10 i ty of [place] 4.2.7.2.686 [facility] [id number] [address] 2022-05-11 2022-05-11 Emergency X [facility] ERT [id number] Univers 15:46:00 18:31:00 JC ity [facility] 2022-05-11 2022-05-11 Emergency [facility] [id number] Univers 15:46:00 18:31:00 Jc Helen RODRIGO 350.1.13.10 i ty of [facility] 4.2.7.2.686 [facility] [id number] [address] 2022-04-04 2022-04-04 Emergency X [facility] ERT [id number] Univers 03:54:00 07:11:00 MINH amaya [facility] 2022-04-04 2022-04-04 [facility] [id number] Univers 03:54:00 07:11:00 Minh WALLACE 350.1.13.10 ity [facility] 4.2.7.2.686 [facility] [id number] [address] 2021-12-06 2021-12-06 [facility] Lyn BAEZRUST ERT [id number] Univers 08:20:00 11:48:00 JONATHAN [facility] 2021-12-06 2021-12-06 [facility] [id number] Univers 08:20:00 11:48:00 Jonathan WALLACE 350.1.13.10 i ty of [place] 4.2.7.2.686 [facility] [id number] [address] 2021-12-05 2021-12-06 [facility] ERT [id number] Univers 22:30:00 02:18:00 MINH [facility]The [facility] 2021-12-05 2021-12-06 [facility] [id number] Univers 22:30:00 02:18:00 Minh WALLACE 350.1.13.10 ity [facility] 4.2.7.[address] [place] [id number] 2015-06-10 2015-06-10 Tyson BALTAZAR [facility] RAD [id number] Univers 00:00:00 23:59:00 FLORINA leslie [facility] Results Test Description Test Time Test Comments Results Result Comments Source POCT GLUCOSE (AUTOMATED) 2023-01-04 03:45:41 Test Item Value Reference Range Interpretation Comme nts POCT GLU (test code = 2802003706) 324 mg/dL 70-110 H Notified Provider Lab Interpretation (test code = 76904-4) Abnormal [facility] GLUCOSE (AUTOMATED)2023-01-04 03:09:17 Test Item Value Reference Range Interpretation Comments POCT GLU (test code = 3767814404) 464 mg/dL 70-110 HH Lab Interpretation (test code = Abnormal 66017-3) [facility] GLUCOSE (AUTOMATED)2022-11-30 12:11:43 Test Item Value Reference Range Interpretation Comments POCT GLU (test code = 2917368484) 223 mg/dL 70-110 H Lab Interpretation (test code = Abnormal 04178-4) [facility] [id number] 10:28:35 Test Item Value Reference Interpretation Comments Range TROPONIN I (test 0.001 ng/mL See_Comment [Automated code = 1201080498) message] The system which generated this result [...] biotin. Lab Interpretation Normal (test code = 21209-3) [facility]. METABOLIC PANEL (65253)2022-11-30 10:16:54 Test Item Value Reference Range Interpretation Comments NA (test code = 132 mmol/L 135-145 L 0667920383) K (test code = 3.9 mmol/L 3.5-5.0 3731492188) CL (test code = 98 mmol/L 98-108 1087829300) CO2 TOTAL (test code = 27 mmol/L 23-31 2353147456) AGAP (test code = 2-16 5182350606) BUN (test code = 14 mg/dL 7-23 9713393986) GLUCOSE (test code = 282 mg/dL 70-110 H 5863209251) CREATININE (test code = 0.69 mg/dL 0.50-1.04 7648989814) TOTAL BILI (test code = 0.5 mg/dL 0.1-1.4 8230335085) CALCIUM (test code = 8.7 mg/dL 8.6-10.6 3294239836) T PROTEIN (test code = 7.0 g/dL 6.3-8.2 7403988591) ALBUMIN (test code = 4.1 g/dL 3.5-5.0 5025049361) ALK PHOS (test code = 135 U/L 34-122 H 7680651192) ALTv (test code = 52 U/L 5-35 H 1742-6) AST(SGOT) (test code = 30 U/L 13-40 9097741419) eGFR (test code = mL/min/1.73m2 3454767020) RUSS (test code = RUSS) Association of [...] tests). Lab Interpretation Abnormal (test code = 25947-6) [facility] 10:16:34 Test Item Value Reference Range Interpretation Comments LIPASE (test code = 3298927960) 120 U/L 0-220 Lab Interpretation (test code = Normal 74268-9) [facility] WITH [id number] 10:08:14 Test Item Value Reference Range Interpretation Comments WBC (test code = See_Comment [Automated 1590-2) message] The sy stem which generated this result transmitted reference range : 4.30 - 11.10 10*3/?L. The reference range was not used to interpret this result as normal/abnormal . RBC (test code = See_Comment [Automated 169-8) message] The sy stem which generated this [...] (test code = 37.2 fL 39.0-49.9 L 03621-7) RDW-CV (test code = 11.8 % 12.0-15.5 L 788-0) PLT (test code = See_Comment L [Automated 777-3) message] The sy stem which generated this result transmitted reference range : 166 - 358 10*3/ ?L. The reference r felix was not used to interpret this result as normal/abnormal . MPV (test code = 10.2 fL 9.5-12.9 20327-9) NRBC/100 WBC (test See_Comment [Automat ed code = 9248511630) message] The system which generated this result transmitted reference range : 0.0 - 10.0 /100 WBCs. The refer ence range was not u sed to interpret th is result as normal/abnormal . NRBC x10^3 (test code See_Comment [Auto mated = 3726238906) message] The s ystem which generated this result transmitted reference range : 10*3/?L. The reference range was not used to interpret this result as normal/abnormal . GRAN MAT (NEUT) % 58.2 % (test code = 770-8) IMM GRAN % (test code 0.20 % = 8739047959) LYMPH % (test code = 30.8 % 736-9) MONO % (test code = 7.2 % 5905-5) EOS % (test code = 3.0 % 713-8) BASO % (test code = 0.6 % 706-2) GRAN MAT x10^3(ANC) 3.06 10*3/uL 1.88-7.09 (test code = 8416468790) IMM GRAN x10^3 (test 0.00-0.06 code = 0679372777) LYMPH x10^3 (test code 1.62 10*3/uL 1.32-3.29 = 731-0) MONO x10^3 (test code 0.38 10*3/uL 0.33-0.92 = 742-7) EOS x10^3 (test code = 0.16 10*3/uL 0.03-0.39 711-2) BASO x10^3 (test code 0.03 10*3/uL 0.01-0.07 = 704-7) Lab Interpretation Abnormal (test code = 56080-5) [facility] GLUCOSE (AUTOMATED)2022-11-30 09:54:04 Test Item Value Reference Range Interpretation Comments POCT GLU (test code = 4749309980) 298 mg/dL 70-110 H Lab Interpretation (test code = Abnormal 02512-0) [facility] GLUCOSE (AUTOMATED)2022-11-04 02:36:44 Test Item Value Reference Range Interpretation Comments POCT GLU (test code = 7698676725) 222 mg/dL 70-110 H Lab Interpretation (test code = Abnormal 91621-2) [facility] METABOLIC PANEL (NA, K, CL, CO2, GLUCOSE, BUN, CREATININE, CA)2022-11-04 01:52:55 Test Item Value Reference Range Interpretation Comments NA (test code = 136 mmol/L 135-145 2349130926) K (test code = 4.2 mmol/L 3.5-5.0 8891675939) CL (test code = 102 mmol/L 98-108 3154204959) CO2 TOTAL (test code = 24 mmol/L 23-31 7199549080) AGAP (test code = 2-16 2457365559) BUN (test code = 18 mg/dL 7-23 8867327641) GLUCOSE (test code = 478 mg/dL 70-110 HH 9962595651) CREATININE (test code = 0.71 mg/dL 0.50-1.04 3401760595) CALCIUM (test code = 9.6 mg/dL 8.6-10.6 4652037796) eGFR (test code = mL/min/1.73m2 4575823545) RUSS (test code = RUSS) Association of [...] tests). Lab Interpretation Abnormal (test code = 52385-3) [facility] [id number] 01:42:22 Test Item Value Reference Interpretation Comments Range TROPONIN I (test 0.001 ng/mL See_Comment [Automated code = 8099318058) message] The system which generated this result [...] biotin. Lab Interpretation Normal (test code = 47541-7) [facility] WITH [id number] 01:24:19 Test Item Value Reference Range Interpretation Comments WBC (test code = See_Comment [Automated 8790-2) message] The sy stem which generated this result transmitted reference range : 4.30 - 11.10 10*3/?L. The reference range was not used to interpret this result as normal/abnormal . RBC (test code = See_Comment [Automated 839-8) message] The sy stem which generated this [...] (test code = 37.5 fL 39.0-49.9 L 63914-3) RDW-CV (test code = 11.9 % 12.0-15.5 L 788-0) PLT (test code = See_Comment [Automated 777-3) message] The sy stem which generated this result transmitted reference range : 166 - 358 10*3/ ?L. The reference r felix was not used to interpret this result as normal/abnormal . MPV (test code = 11.0 fL 9.5-12.9 90769-8) NRBC/100 WBC (test See_Comment [Automat ed code = 0364697969) message] The system which generated this result transmitted reference range : 0.0 - 10.0 /100 WBCs. The refer ence range was not u sed to interpret th is result as normal/abnormal . NRBC x10^3 (test code See_Comment [Auto mated = 3692437042) message] The s ystem which generated this result transmitted reference range : 10*3/?L. The reference range was not used to interpret this result as normal/abnormal . GRAN MAT (NEUT) % 68.9 % (test code = 770-8) IMM GRAN % (test code 0.50 % = 4105263216) LYMPH % (test code = 24.9 % 736-9) MONO % (test code = 4.5 % 5905-5) EOS % (test code = 0.8 % 713-8) BASO % (test code = 0.4 % 706-2) GRAN MAT x10^3(ANC) 5.01 10*3/uL 1.88-7.09 (test code = 2440891170) IMM GRAN x10^3 (test 0.04 10*3/uL 0.00-0.06 code = 5422960720) LYMPH x10^3 (test code 1.81 10*3/uL 1.32-3.29 = 731-0) MONO x10^3 (test code 0.33 10*3/uL 0.33-0.92 = 742-7) EOS x10^3 (test code = 0.06 10*3/uL 0.03-0.39 711-2) BASO x10^3 (test code 0.03 10*3/uL 0.01-0.07 = 704-7) Lab Interpretation Abnormal (test code = 41966-3) [facility] 00:50:24 Test Item Value Reference Range Interpretation Comments POCT GLU (test code = 7734125472) 452 mg/dL 70-110 HH Lab Interpretation (test code = Abnormal 77150-6) [facility] [id number] 22:41:10 Test Item Value Reference Interpretation Comments Range TROPONIN I (test 0.001 ng/mL See_Comment [Automated code = 8496005149) message] The system which generated this result [...] biotin. Lab Interpretation Normal (test code = 79138-6) [facility] 22:30:04 Test Item Value Reference Range Interpretation Comments MAGNESIUM (test code = 0283286842) 1.5 mg/dL 1.7-2.4 L Lab Interpretation (test code = Abnormal 36937-8) [facility]OLIC PAN[facility] ([id number])2022-10-28 22:29:23 Test Item Value Reference Range Interpretation Comments NA (test code = 137 mmol/L 135-145 3261752419) K (test code = 4.2 mmol/L 3.5-5.0 5458435514) CL (test code = 101 mmol/L 98-108 1607227651) CO2 TOTAL (test code = 25 mmol/L 23-31 7768612365) AGAP (test code = 2-16 9329367953) BUN (test code = 14 mg/dL 7-23 0638502681) GLUCOSE (test code = 274 mg/dL 70-110 H 1356215917) CREATININE (test code = 0.65 mg/dL 0.50-1.04 0220267845) TOTAL BILI (test code = 0.3 mg/dL 0.1-1.5 9792432345) CALCIUM (test code = 9.5 mg/dL 8.6-10.6 9211673933) T PROTEIN (test code = 7.7 g/dL 6.3-8.2 7833127228) ALBUMIN (test code = 4.5 g/dL 3.5-5.0 3425692983) ALK PHOS (test code = 119 U/L 34-122 0237674239) ALTv (test code = 41 U/L 5-35 H 1742-6) AST(SGOT) (test code = 33 U/L 13-40 9204265976) eGFR (test code = mL/min/1.73m2 9572482861) RUSS (test code = RUSS) Association of [...] tests). Lab Interpretation Abnormal (test code = 78557-8) [facility] 22:29:23 Test Item Value Reference Range Interpretation Comments LIPASE (test code = 1755559188) 210 U/L 0-220 Lab Interpretation (test code = Normal 44931-8) [facility] WITH [id number] 22:02:42 Test Item Value Reference Range Interpretation Comments WBC (test code = See_Comment [Automated 6690-2) message] The sy stem which generated this result transmitted reference range : 4.30 - 11.10 10*3/?L. The reference range was not used to interpret this result as normal/abnormal . RBC (test code = See_Comment [Automated 249-8) message] The sy stem which generated this [...] (test code = 37.4 fL 39.0-49.9 L 49864-8) RDW-CV (test code = 11.8 % 12.0-15.5 L 788-0) PLT (test code = See_Comment [Automated 777-3) message] The sy stem which generated this result transmitted reference range : 166 - 358 10*3/ ?L. The reference r felix was not used to interpret this result as normal/abnormal . MPV (test code = 10.4 fL 9.5-12.9 79477-0) NRBC/100 WBC (test See_Comment [Automat ed code = 6899478610) message] The system which generated this result transmitted reference range : 0.0 - 10.0 /100 WBCs. The refer ence range was not u sed to interpret th is result as normal/abnormal . NRBC x10^3 (test code See_Comment [Auto mated = 4174463946) message] The s ystem which generated this result transmitted reference range : 10*3/?L. The reference range was not used to interpret this result as normal/abnormal . GRAN MAT (NEUT) % 69.9 % (test code = 770-8) IMM GRAN % (test code 0.50 % = 0789551201) LYMPH % (test code = 23.8 % 736-9) MONO % (test code = 4.1 % 5905-5) EOS % (test code = 1.4 % 713-8) BASO % (test code = 0.3 % 706-2) GRAN MAT x10^3(ANC) 4.63 10*3/uL 1.88-7.09 (test code = 4744377913) IMM GRAN x10^3 (test 0.03 10*3/uL 0.00-0.06 code = 0697309630) LYMPH x10^3 (test code 1.57 10*3/uL 1.32-3.29 = 731-0) MONO x10^3 (test code 0.27 10*3/uL 0.33-0.92 L = 742-7) EOS x10^3 (test code = 0.09 10*3/uL 0.03-0.39 711-2) BASO x10^3 (test code 0.01-0.07 = 704-7) Lab Interpretation Abnormal (test code = 78111-7) [facility] GLUCOSE (AUTOMATED)2022-09-16 00:59:22 Test Item Value Reference Range Interpretation Comments POCT GLU (test code = 6756881055) 238 mg/dL 70-110 H Lab Interpretation (test code = Abnormal 74626-7) [facility] >30DAYS[facility]2022-09-16 00:56:00 Test Item Value Reference Range Interpretation Comments POCT Glu (age>30days) (test code = 238 mg/dL 70-110 3342) Lab Interpretation (test code = Normal 85190-8) [facility] [id number] 22:43:37 Test Item Value Reference Interpretation Comments Range TROPONIN I (test 0.003 ng/mL See_Comment [Automated code = 9407521403) message] The system which generated this result [...] biotin. Lab Interpretation Normal (test code = 25765-2) [facility] HospitalComplete Metabolic [id number] 22:35:37 Test Item Value Reference Range Interpretation Comments NA (test code = 137 mmol/L 135-145 5422790311) K (test code = 4.5 mmol/L 3.5-5 7346312786) CL (test code = 99 mmol/L 98-108 1687490769) CO2 TOTAL (test code = 23 mmol/L 23-31 4491178333) AGAP (test code = 2-16 5570086553) BUN (test code = 16 mg/dL 7-23 4013486644) GLUCOSE (test code = 405 mg/dL 70-110 H 4917765365) CREATININE (test code = 0.66 mg/dL 0.5-1.04 7991166877) TOTAL BILI (test code = 0.6 mg/dL 0.1-1.1 7004952975) CALCIUM (test code = 9.9 mg/dL 8.6-10.6 5646251466) T PROTEIN (test code = 8.8 g/dL 6.3-8.2 H 8502499753) ALBUMIN (test code = 4.9 g/dL 3.5-5 2408658782) ALK PHOS (test code = 164 U/L 34-122 H 8432583841) ALTv (test code = 88 U/L 5-35 H 1742-6) AST(SGOT) (test code = 51 U/L 13-40 H 6677529681) eGFR (test code = mL/min/1.73m2 1074086366) RUSS (test code = RUSS) Association of [...] tests). Lab Interpretation Abnormal (test code = 51875-0) [facility] HospitalLipase, [id number] 22:34:57 Test Item Value Reference Range Interpretation Comments LIPASE (test code = 9897690890) 159 U/L 0-220 Lab Interpretation (test code = Normal 91943-7) [facility] with [id number] 22:11:31 Test Item Value Reference Range Interpretation Comments WBC (test code = See_Comment [Automated 1290-2) message] The sy stem which generated this [...] (test code = 38.5 fL 39-49.9 L 01745-9) RDW-CV (test code = 12.0 % 12-15.5 788-0) PLT (test code = See_Comment L [Automated 777-3) message] The sy stem which generated this result transmitted reference range : 166 - 358 10*3/ ?L. The reference r felix was not used to interpret this result as normal/abnormal . MPV (test code = 10.7 fL 9.5-12.9 40166-7) NRBC/100 WBC (test See_Comment [Automat ed code = 9624859107) message] The system which generated this result transmitted reference range : 0.0 - 10.0 /100 WBCs. The refer ence range was not u sed to interpret th is result as normal/abnormal . NRBC x10^3 (test code See_Comment [Auto mated = 0338480034) message] The s ystem which generated this result transmitted reference range : 10*3/?L. The reference range was not used to interpret this result as normal/abnormal . GRAN MAT (NEUT) % 69.4 % (test code = 770-8) IMM GRAN % (test code 0.20 % = 3965593679) LYMPH % (test code = 22.6 % 736-9) MONO % (test code = 5.7 % 5905-5) EOS % (test code = 1.6 % 713-8) BASO % (test code = 0.5 % 706-2) GRAN MAT x10^3(ANC) 4.00 10*3/uL 1.88-7.09 (test code = 8149551632) IMM GRAN x10^3 (test 0-0.06 code = 9214328029) LYMPH x10^3 (test code 1.30 10*3/uL 1.32-3.29 L = 731-0) MONO x10^3 (test code 0.33 10*3/uL 0.33-0.92 = 742-7) EOS x10^3 (test code = 0.09 10*3/uL 0.03-0.39 711-2) BASO x10^3 (test code 0.03 10*3/uL 0.01-0.07 = 704-7) Lab Interpretation Abnormal (test code = 72280-5) [facility] GLUCOSE (AUTOMATED)2022-08-21 02:00:19 Test Item Value Reference Range Interpretation Comments POCT GLU (test code = 516 mg/dL 70-110 HH Notifi ed Provider [id number]) Lab Interpretation (test Abnormal code = 40400-7) [facility] GLUCOSE (AUTOMATED)2022-05-11 22:58:38 Test Item Value Reference Range Interpretation Comments POCT GLU (test code = 6025047853) 318 mg/dL 70-110 H Lab Interpretation (test code = Abnormal 50351-8) [facility] GLUCOSE (AUTOMATED)2022-05-11 22:21:13 Test Item Value Reference Range Interpretation Comments POCT GLU (test code = 0145866429) 344 mg/dL 70-110 H Lab Interpretation (test code = Abnormal 58768-5) [facility]AL [id number] 21:44:37 Test Item Value Reference Range Interpretation Comments NT-proBNP (test code 137 pg/mL See_Comment H [Autom ated = 9444091227) message] The system which generated this result transmitted reference range : <=125. The reference range was not used to interpret this result as normal/abnormal . RUSS (test code = RUSS) Biotin has been reported to cause a negative bias, interpret results relative to patient's use of biotin. Lab Interpretation Abnormal (test code = 25207-1) [facility]OL[facility] ([id number])2022-05-11 21:33:55 Test Item Value Reference Range Interpretation Comments NA (test code = 136 mmol/L 135-145 8648999307) K (test code = 3.9 mmol/L 3.5-5.0 1222128755) CL (test code = 99 mmol/L 98-108 0493118553) CO2 TOTAL (test code = 28 mmol/L 23-31 0962123600) AGAP (test code = 2-16 6123606729) BUN (test code = 16 mg/dL 7-23 9594831584) GLUCOSE (test code = 367 mg/dL 70-110 H 3728546383) CREATININE (test code = 0.60 mg/dL 0.50-1.04 2347495226) TOTAL BILI (test code = 0.8 mg/dL 0.1-1.3 7210539096) CALCIUM (test code = 9.8 mg/dL 8.6-10.6 9422194949) T PROTEIN (test code = 7.9 g/dL 6.3-8.2 9480816628) ALBUMIN (test code = 4.6 g/dL 3.5-5.0 6544516660) ALK PHOS (test code = 130 U/L 34-122 H 9651645588) ALTv (test code = 28 U/L 5-35 1742-6) AST(SGOT) (test code = 36 U/L 13-40 9877868641) eGFR (test code = mL/min/1.73m2 6336943565) RUSS (test code = RUSS) Association of [...] tests). Lab Interpretation Abnormal (test code = 79914-1) [facility] 21:33:55 Test Item Value Reference Range Interpretation Comments LIPASE (test code = 3334719425) 173 U/L 0-220 Lab Interpretation (test code = Normal 85352-6) [facility] WITH [id number] 21:24:34 Test Item Value Reference Range Interpretation Comments WBC (test code = See_Comment [Automated 3486-2) message] The sy stem which generated this result transmitted reference range : 4.30 - 11.10 10*3/?L. The reference range was not used to interpret this result as normal/abnormal . RBC (test code = See_Comment [Automated 692-8) message] The sy stem which generated this [...] RDW-SD (test code = 39.1 fL 39.0-49.9 08726-1) RDW-CV (test code = 12.4 % 12.0-15.5 788-0) PLT (test code = See_Comment [Automated 777-3) message] The sy stem which generated this result transmitted reference range : 166 - 358 10*3/ ?L. The reference r felix was not used to interpret this result as normal/abnormal . MPV (test code = 10.6 fL 9.5-12.9 43001-8) NRBC/100 WBC (test See_Comment [Automat ed code = 9209980969) message] The system which generated this result transmitted reference range : 0.0 - 10.0 /100 WBCs. The refer ence range was not u sed to interpret th is result as normal/abnormal . NRBC x10^3 (test code <0.01 See_Comment [Auto mated = 9135753358) message] The s ystem which generated this result transmitted reference range : 10*3/?L. The reference range was not used to interpret this result as normal/abnormal . GRAN MAT (NEUT) % 76.2 % (test code = 770-8) IMM GRAN % (test code 0.30 % = 3181146392) LYMPH % (test code = 16.7 % 736-9) MONO % (test code = 5.2 % 5905-5) EOS % (test code = 1.2 % 713-8) BASO % (test code = 0.4 % 706-2) GRAN MAT x10^3(ANC) 5.26 10*3/uL 1.88-7.09 (test code = 7857443655) IMM GRAN x10^3 (test <0.03 0.00-0.06 code = 6415224906) LYMPH x10^3 (test code 1.15 10*3/uL 1.32-3.29 L = 731-0) MONO x10^3 (test code 0.36 10*3/uL 0.33-0.92 = 742-7) EOS x10^3 (test code = 0.08 10*3/uL 0.03-0.39 711-2) BASO x10^3 (test code 0.03 10*3/uL 0.01-0.07 = 704-7) Lab Interpretation Abnormal (test code = 77216-7) [facility]22-[facility]-04 11:08:42 Test Item Value Reference Range Interpretation Comments POCT GLU (test code = 3279406574) 381 mg/dL 70-110 H Lab Interpretation (test code = Abnormal 27556-9) [facility]. METABOLIC PANEL (71202)2022-04-04 10:16:12 Test Item Value Reference Range Interpretation Comments NA (test code = 131 mmol/L 135-145 L 4699235835) K (test code = 4.0 mmol/L 3.5-5.0 3014288310) CL (test code = 93 mmol/L 98-108 L 4626078894) CO2 TOTAL (test code = 23 mmol/L 23-31 7681339339) AGAP (test code = 2-16 2706784341) BUN (test code = 20 mg/dL 7-23 7653433195) GLUCOSE (test code = 566 mg/dL 70-110 HH 0918021727) CREATININE (test code = 0.76 mg/dL 0.50-1.04 1026667136) TOTAL BILI (test code = 0.9 mg/dL 0.1-1.2 9174112658) CALCIUM (test code = 9.5 mg/dL 8.6-10.6 4689878953) T PROTEIN (test code = 7.5 g/dL 6.3-8.2 7795214511) ALBUMIN (test code = 4.4 g/dL 3.5-5.0 0045102888) ALK PHOS (test code = 130 U/L 34-122 H 7963642382) ALTv (test code = 16 U/L 5-35 1742-6) AST(SGOT) (test code = 22 U/L 13-40 6946098288) eGFR (test code = mL/min/1.73m2 0810754421) RUSS (test code = RUSS) Association of [...] tests). Lab Interpretation Abnormal (test code = 12189-0) [facility] 09:55:58 Test Item Value Reference Range Interpretation Comments MAGNESIUM (test code = 7171006939) 1.7 mg/dL 1.7-2.4 Lab Interpretation (test code = Normal 92250-5) [facility] WITH [id number] 09:24:34 Test Item Value Reference Range Interpretation Comments WBC (test code = See_Comment [Automated 90-2) message] The sy stem which generated this [...] (test code = 36.8 fL 39.0-49.9 L 30757-0) RDW-CV (test code = 12.2 % 12.0-15.5 788-0) PLT (test code = See_Comment [Automated 777-3) message] The sy stem which generated this result transmitted reference range : 166 - 358 10*3/ ?L. The reference r felix was not used to interpret this result as normal/abnormal . MPV (test code = 10.4 fL 9.5-12.9 27340-5) NRBC/100 WBC (test See_Comment [Automat ed code = 7198591921) message] The system which generated this result transmitted reference range : 0.0 - 10.0 /100 WBCs. The refer ence range was not u sed to interpret th is result as normal/abnormal . NRBC x10^3 (test code <0.01 See_Comment [Auto mated = 4879142889) message] The s ystem which generated this result transmitted reference range : 10*3/?L. The reference range was not used to interpret this result as normal/abnormal . GRAN MAT (NEUT) % 64.5 % (test code = 770-8) IMM GRAN % (test code 0.50 % = 9854233657) LYMPH % (test code = 26.4 % 736-9) MONO % (test code = 6.4 % 5905-5) EOS % (test code = 1.6 % 713-8) BASO % (test code = 0.6 % 706-2) GRAN MAT x10^3(ANC) 4.01 10*3/uL 1.88-7.09 (test code = 8533762748) IMM GRAN x10^3 (test 0.03 10*3/uL 0.00-0.06 code = 2592644809) LYMPH x10^3 (test code 1.64 10*3/uL 1.32-3.29 = 731-0) MONO x10^3 (test code 0.40 10*3/uL 0.33-0.92 = 742-7) EOS x10^3 (test code = 0.10 10*3/uL 0.03-0.39 711-2) BASO x10^3 (test code 0.04 10*3/uL 0.01-0.07 = 704-7) Lab Interpretation Abnormal (test code = 88517-9) [facility]22-[facility]-04 09:04:45 Test Item Value Reference Range Interpretation Comments POCT GLU (test code = 4734202245) 532 mg/dL 70-110 HH Lab Interpretation (test code = Abnormal 26624-7) [facility]SALICYLATE2022-01-08 16:39:21 Test Item Value Reference Range Interpretation Comments SALICYLATE (test code <10 mg/L = 6626981842) RUSS (test code = RUSS) Therapeutic Range: ? Analgesic and Antipyretic Use ? 20-100 mg/L ? ? Anti-Inflammatory Use ? 100-250 mg/L Toxic Range: ? Greater than 300 mg/L [facility]ACETAMINOPHEN2022-01-08 16:39:06 Test Item Value Reference Range Interpretation Comments ACETAMINOP (test code = <10.0 10.0-30.0 L 1100630033) RUSS (test code = RUSS) Toxic: Greater than 200 ug/mL @ 4 hour post ingestion or greater than 50 ug/mL @ 12 hour post ingestion Lab Interpretation (test Abnormal code = 34865-1) [facility]ETHANOL2022-[facility]-08 15:24:55 Test Item Value Reference Range Interpretation Comments ALCOHOL (test code = <10 mg/dL 1734469136) RUSS (test code = RUSS) <10 Kjvvofdk94-828 Toxic>100 Depression of [employer]>400 Fatalities Reported [facility] [id number] 15:20:39 Test Item Value Reference Interpretation Comments Range TROPONIN I (test 0.008 ng/mL See_Comment [Automated code = 5476766655) message] The system which generated this result [...] biotin. Lab Interpretation Normal (test code = 52555-8) [facility]MINAL [id number] 15:17:38 Test Item Value Reference Range Interpretation Comments NT-proBNP (test code 51 pg/mL See_Comment [Autom ated = 0724599074) message] The system which generated this result transmitted reference range : <=125. The reference range was not used to interpret this result as normal/abnormal . RUSS (test code = RUSS) Biotin has been reported to cause a negative bias, interpret results relative to patient's use of biotin. Lab Interpretation Normal (test code = 28023-2) [facility]OL[facility] (15244)2021-12-06 15:09:16 Test Item Value Reference Range Interpretation Comments NA (test code = 135 mmol/L 135-145 3603322236) K (test code = 4.1 mmol/L 3.5-5.0 3018639901) CL (test code = 99 mmol/L 98-108 6681765047) CO2 TOTAL (test code = 28 mmol/L 23-31 7294610093) AGAP (test code = 2-16 4437555208) BUN (test code = 17 mg/dL 7-23 0943945840) GLUCOSE (test code = 250 mg/dL 70-110 H 2095158706) CREATININE (test code = 0.77 mg/dL 0.50-1.04 5712224584) TOTAL BILI (test code = 0.5 mg/dL 0.1-1.8 2107492687) CALCIUM (test code = 9.4 mg/dL 8.6-10.6 8418662823) T PROTEIN (test code = 8.3 g/dL 6.3-8.2 H 0729836895) ALBUMIN (test code = 4.6 g/dL 3.5-5.0 9361032106) ALK PHOS (test code = 182 U/L 34-122 H 8960736579) ALTv (test code = 145 U/L 5-35 H 1742-6) AST(SGOT) (test code = 115 U/L 13-40 H 3406709167) eGFR (test code = mL/min/1.73m2 6576085919) RUSS (test code = RUSS) Association of [...] tests). Lab Interpretation Abnormal (test code = 95969-4) [facility]ACTIVATED PARTIAL THRMPLAS [id number] 15:08:56 Test Item Value Reference Range Interpretation Comments APTT Patient (test See_Comment [Automat ed code = 3173-2) message] The system which generated this result transmitted reference range : 23 - 38 Seconds . The reference range was not used to interpr et this result as normal/abnormal . RUSS (test code = RUSS) The [facility] patient population mean normal value for aPTT is 30 seconds. Lab Interpretation Normal (test code = 65698-7) [facility] HospitalPROTHROMBIN TIME / [id number] 15:06:55 Test Item Value Reference Range Interpretation [...] tions. Lab Interpretation (test Normal code = 22324-2) [facility] WITH [id number] 14:52:54 Test Item Value Reference Range Interpretation Comments WBC (test code = See_Comment [Automated 1990-2) message] The sy stem which generated this result transmitted reference range : 4.30 - 11.10 10*3/?L. The reference range was not used to interpret this result as normal/abnormal . RBC (test code = See_Comment [Automated 529-8) message] The sy stem which generated this [...] RDW-SD (test code = 40.9 fL 39.0-49.9 28433-0) RDW-CV (test code = 12.5 % 12.0-15.5 788-0) PLT (test code = See_Comment L [Automated 777-3) message] The sy stem which generated this result transmitted reference range : 166 - 358 10*3/ ?L. The reference r felix was not used to interpret this result as normal/abnormal . MPV (test code = 10.3 fL 9.5-12.9 18485-6) NRBC/100 WBC (test See_Comment [Automat ed code = 0709625454) message] The system which generated this result transmitted reference range : 0.0 - 10.0 /100 WBCs. The refer ence range was not u sed to interpret th is result as normal/abnormal . NRBC x10^3 (test code <0.01 See_Comment [Auto mated = 3095117339) message] The s ystem which generated this result transmitted reference range : 10*3/?L. The reference range was not used to interpret this result as normal/abnormal . GRAN MAT (NEUT) % 70.2 % (test code = 770-8) IMM GRAN % (test code 0.20 % = 2650575357) LYMPH % (test code = 20.5 % 736-9) MONO % (test code = 6.9 % 5905-5) EOS % (test code = 1.7 % 713-8) BASO % (test code = 0.5 % 706-2) GRAN MAT x10^3(ANC) 4.08 10*3/uL 1.88-7.09 (test code = 5851377339) IMM GRAN x10^3 (test <0.03 0.00-0.06 code = 7465535460) LYMPH x10^3 (test code 1.19 10*3/uL 1.32-3.29 L = 731-0) MONO x10^3 (test code 0.40 10*3/uL 0.33-0.92 = 742-7) EOS x10^3 (test code = 0.10 10*3/uL 0.03-0.39 711-2) BASO x10^3 (test code 0.03 10*3/uL 0.01-0.07 = 704-7) Lab Interpretation Abnormal (test code = 60286-8) [facility] HospitalAC PAN[facility] 21 + LACTIC [id number] 14:45:11 Test Item Value Reference Range Interpretation Comments PH (test code = 7.32-7.42 8509340472) PCO2 KINDRA (test code = See_Comment [Auto mated 1592562397) message] The sy stem which generated this result transmitted reference range : 41 - 51 mmHg. The reference range was not used to interpret this result as normal/abnormal . PO2 KINDRA (test code = See_Comment [Autom ated 1073197455) message] The sy stem which generated this result transmitted reference range : 25 - 40 mmHg. The reference range was not used to interpret this result as normal/abnormal . HCO3 KINDRA (test code = See_Comment [Auto mated 1314752768) message] The sy stem which generated this result transmitted reference range : 24 - 28 mEq/L. The reference range was not used to interpret this result as normal/abnormal . AC VBE(BEAKER) (test mEq/L code = 9892220615) THB KINDRA (test code = 13.8 g/dL 12.0-16.0 7682326112) %O2HB KINDRA (test code = 59.6 % 52.0-63.0 4082429342) %COHB KINDRA (test code = 1.8 % 0.0-1.5 H 6307990323) %METHB KINDRA (test code = 0.3 % 0.4-1.5 L 2490406358) VOL%O2 KINDRA (test code = 11.5 % 6.0-12.0 0583834980) NA (test code = 137 mmol/L 135-145 2372449815) K+ (test code = 4.2 mmol/L 3.5-5.0 8662349132) AC CA IONZ (test code = 4.60 mg/dL 4.50-5.30 2580976729) GLUCOSE (test code = 248 mg/dL 70-110 H 8901772198) LACTIC ACID (test code 1.79 mmol/L 0.50-2.20 = 8581867423) Lab Interpretation Abnormal (test code = 69476-8) [facility] 07:16:20 Test Item Value Reference Range Interpretation Comments LIPASE (test code = 1223626628) 228 U/L 0-220 H Lab Interpretation (test code = Abnormal 91544-4) [facility]TR[facility] [id number] 05:59:12 Test Item Value Reference Interpretation Comments Range TROPONIN I (test 0.003 ng/mL See_Comment [Automated code = 4356678973) message] The system which generated this result [...] biotin. Lab Interpretation Normal (test code = 65670-5) [facility]. MET[facility]OLIC PANEL ([id number])2021-12-06 05:49:12 Test Item Value Reference Range Interpretation Comments NA (test code = 135 mmol/L 135-145 5033330200) K (test code = 4.4 mmol/L 3.5-5.0 9425054626) CL (test code = 101 mmol/L 98-108 1436979116) CO2 TOTAL (test code = 26 mmol/L 23-31 6247134260) AGAP (test code = 2-16 2360955715) BUN (test code = 15 mg/dL 7-23 2250167823) GLUCOSE (test code = 318 mg/dL 70-110 H 9853881343) CREATININE (test code = 0.70 mg/dL 0.50-1.04 6713515337) TOTAL BILI (test code = 0.5 mg/dL 0.1-1.9 0303273699) CALCIUM (test code = 9.3 mg/dL 8.6-10.6 7430843047) T PROTEIN (test code = 8.0 g/dL 6.3-8.2 6480623582) ALBUMIN (test code = 4.4 g/dL 3.5-5.0 6141713746) ALK PHOS (test code = 189 U/L 34-122 H 7883647248) ALTv (test code = 135 U/L 5-35 H 1742-6) AST(SGOT) (test code = 173 U/L 13-40 H 9477929956) eGFR (test code = mL/min/1.73m2 8956596054) RUSS (test code = RUSS) Association of [...] tests). Lab Interpretation Abnormal (test code = 50671-5) [facility] WITH [id number] 04:44:46 Test Item Value Reference Range Interpretation Comments WBC (test code = See_Comment [Automated message] 6690-2) The system [employer] generated this result transmitted ref erence range: 4.30 - 1 1.10 10*3/?L. The re ference range was not u sed to interpret this result as normal/abnor mal. RBC (test code = See_Comment [Automated message] 559-8) The system [employer] generated this result transmitted ref erence range: [...] RDW-SD (test code 39.8 fL 39.0-49.9 = 45201-2) RDW-CV (test code 12.3 % 12.0-15.5 = 788-0) PLT (test code = See_Comment [Automated message] 777-3) The system [employer] generated this result transmitted ref erence range: 166 - 35 8 10*3/?L. The re ference range was not u sed to interpret this result as normal/abnor mal. MPV (test code = 10.9 fL 9.5-12.9 83337-7) NRBC/100 WBC (test See_Comment [Automat ed message] code = 0510819340) The syste m which generated this result transmitted ref erence range: 0.0 - 10 .0 /100 WBCs. The refer ence range was not u sed to interpret this result as normal/abnor mal. NRBC x10^3 (test <0.01 See_Comment [Automated message] code = 1695923421) The syste m which generated this result transmitted ref erence range: 10*3/?L. The reference range was not used to interpr et this result as normal/abnormal . GRAN MAT (NEUT) % 64.7 % (test code = 770-8) IMM GRAN % (test 0.30 % code = 7913823671) LYMPH % (test code 25.5 % = 736-9) MONO % (test code 7.1 % = 5905-5) EOS % (test code = 1.9 % 713-8) BASO % (test code 0.5 % = 706-2) GRAN MAT 3.80 10*3/uL 1.88-7.09 x10^3(ANC) (test code = 3659916235) IMM GRAN x10^3 <0.03 0.00-0.06 (test code = 9360187731) LYMPH x10^3 (test 1.50 10*3/uL 1.32-3.29 code = 731-0) MONO x10^3 (test 0.42 10*3/uL 0.33-0.92 code = 742-7) EOS x10^3 (test 0.11 10*3/uL 0.03-0.39 code = 711-2) BASO x10^3 (test 0.03 10*3/uL 0.01-0.07 code = 704-7) [facility]"
[2023-09-02] MEDS ORDERED: MORPHINE 4 MG/ML SYR ONE (19:52)
[2023-09-02] MEDS ORDERED: ONDANSETRON 4 MG/2 ML VIAL ONE (19:53)
[2023-09-02] MEDS ORDERED: ASPIRIN 81 MG CHEWABLE TABLET ONE (19:53)
--- NOTE | 2023-09-02 20:05 | RAD REPORT ---
EXAM DESCRIPTION: RAD - Chest Single View - 09/02/2023 7:53 pm CLINICAL HISTORY: CHEST PAIN Chest pain. COMPARISON: Chest Single View dated 07/17/2023; Chest Single View dated 06/24/2023; Chest Single View dated 02/19/2023; Chest Pa And Lat (2 Views) dated 03/16/2017 FINDINGS: Portable technique limits examination quality. The lungs are grossly clear. The heart is normal in size. No displaced fractures. IMPRESSION: No acute intrathoracic process suspected.
[2023-09-02 20:13] LABS: Absolute Lymphocytes (CBC) 2.1 K/uL (0.7-4.9); Lymphocytes % 29.3 % (15.3-44.8); MCV 88.7 fL (80-100); MPV 8.6 fL (7.6-11.3); Platelets 170 thou/uL (152-406); RBC Red Blood Cell Count 4.51 M/uL (3.86-4.86)
[2023-09-02 20:14] LABS: Protime INR 0.92
[2023-09-02 20:32] LABS: ALT/SGPT 37 U/L (13-56); AST/SGOT 20 U/L (15-37); Alkaline Phosphatase 129 U/L (45-117); BUN Blood Urea Nitrogen 14 mg/dL (7-18); Bicarbonate 29 mEq/L (21-32); Bilirubin Direct < 0.1 mg/dL (0-0.2); Bilirubin Indirect, Calculated ND mg/dL (0.2-0.8); Bilirubin Total 0.3 mg/dL (0.2-1.0); Glomerular Filtration Rate 73 ml/min (=/>90); Glucose Level 218 mg/dL (74-106); Magnesium 1.6 mg/dL (1.6-2.4); NT PRO-BNP 67 pg/mL (<125); Potassium 3.9 mEq/L (3.5-5.1); Protein, Total 8.7 g/dL (6.4-8.2); Sodium Level 136 mEq/L (136-145); Troponin High Sensitivity 4.5 pg/mL (<58.9)
--- NOTE | 2023-09-02 21:01 | RAD REPORT ---
EXAM DESCRIPTION: CT - Chest Abdomen Pelvis W Cont - 09/02/2023 8:50 pm CLINICAL HISTORY: Chest and abdomen pain. abdominal pain, n/v/d;Chest pain COMPARISON: Abdomen Pelvis Wo Contrast dated 07/17/2023; Abdomen Pelvis W Contrast dated 9 TECHNIQUE: Approximately 100 mL nonionic IV contrast was administered to the patient. All CT scans are performed using dose optimization technique as appropriate and may include automated exposure control or mA/KV adjustment according to patient size. FINDINGS: The lungs are clear.No pleural or pericardial effusion.No intrathoracic adenopathy. The liver, spleen, pancreas, adrenal glands and kidneys are within normal limits. No bowel obstruction, free air, free fluid or abscess. Normal appendix. Multiple thickened small kei l loops are present in the central abdomen with mild edema in the small bowel mesentery and mildly pr ominent mesenteric lymph nodes. No worrisome osseous finding. IMPRESSION: Multiple mildly thickened small bowel loops in the central left abdomen with mild mesent luigi edema and several lymph nodes.This may be related to nonspecific inflammation or enteritis, dickinson pearl this appears to be a chronic condition in this patient and is similar in appearance on multiple r emote studies. No acute finding is demonstrated.
[2023-09-02] MEDS ORDERED: NITROGLYCERIN 0.4 MG/TAB SL ONE (22:11)
--- NOTE | 2023-09-02 22:48 | ER ---
Nurse's Notes [facility] Name: Elaine Rowland Age: 53 yrs Sex: Female : 1970 Arrival Date: 09/02/2023 Time: 19:09 Bed 15 Private MD: Diagnosis: Chest pain, unspecified;Abdominal pain, unspecified Presentation: 09/02 19:15 Chief complaint: Patient states: left sided chest pain onset Wednesday evening. Pt states cm10 that the pain radiates to her back. Pt describes the pain as pinching and "it feels like something is sitting on my chest.". Coronavirus screen: Vaccine status: Patient reports being unvaccinated. Client denies travel out of the [place] in the last 14 days. Ebola Screen: Patient denies travel to an Ebola-affected area in the 21 days before illness onset. No symptoms or risks identified at this time. Initial Sepsis Screen: Does the patient meet any 2 criteria? No. Patient's initial sepsis screen is negative. Does the patient have a suspected source of infection? No. Patient's initial sepsis screen is negative. Risk Assessment: Do you want to hurt yourself or someone else? Patient reports no desire to harm self or others. Onset of symptoms was September 02, 2023. 19:15 Method Of Arrival: Ambulatory cm10 19:15 Acuity: SHAINA 2 cm10 Historical: - Allergies: 19:17 NKDA; cm10 - PMHx: 19:17 abd hernia; acid reflux; Anxiety; cirrhosis of liver; COPD; Diabetes - NIDDM; cm10 Hyperlipidemia; Hypertensive disorder; - Immunization history:: Adult Immunizations unknown. - Social history:: Smoking status: Patient/guardian denies using tobacco, Stopped _ months ago 6. Screenin:18 [facility] ED Fall Risk Assessment (Adult) History of falling in the last 3 months, ha1 including since admission No falls in past 3 months (0 pts) Confusion or Disorientation No (0 pts) Intoxicated or Sedated No (0 pts) Impaired Gait No (0 pts) Mobility Assist Device Used No (0 pt) Altered Elimination No (0 pt) Score/Fall Risk Level 0 - 2 = Low Risk Oriented to surroundings, Maintained a safe environment, Educated pt \\T\\ family on fall prevention, incl call for assistance when getting out of bed. 20:36 Abuse screen: Denies threats or abuse. Denies injuries from another. Nutritional ha1 screening: No deficits noted. Tuberculosis screening: No symptoms or risk factors identified. Assessment: 19:20 General: Appears comfortable, Behavior is calm, cooperative. Pain: Complains of pain in ha1 chest Pain radiates to LEFT SHOULDER Pain currently is 9 out of 10 on a pain scale. Quality of pain is described as pressure, Pain began Is continuous. Neuro: Level of Consciousness is awake, alert, obeys commands, Oriented to person, place, time, situation. Cardiovascular: Heart tones S1 S2 present Capillary refill < 3 seconds Patient's skin is warm and dry. Rhythm is sinus rhythm. Respiratory: Airway is patent Respiratory effort is even, unlabored, Respiratory pattern is regular, symmetrical. 20:20 Reassessment: Patient and/or family updated on plan of care and expected duration. Pain ha1 level reassessed. Patient is alert, oriented x 3, equal unlabored respirations, skin warm/dry/pink. Patient states feeling better. Patient states symptoms have improved. 21:20 Reassessment: Patient and/or family updated on plan of care and expected duration. Pain ha1 level reassessed. Patient is alert, oriented x 3, equal unlabored respirations, skin warm/dry/pink. PAIN 9/10. Notified [facility]. 22:20 Reassessment: Patient and/or family updated on plan of care and expected duration. Pain ha1 level reassessed. Patient is alert, oriented x 3, equal unlabored respirations, skin warm/dry/pink. Patient states feeling better. Patient states symptoms have improved. Vital Signs: 19:15 BP 161 / 75; Pulse 78; Resp 18; Temp 98.5; Pulse Ox 100% on R/A; Weight 68.04 kg (R); cm10 Height 5 ft. 2 in. (R); Pain 9/10; 19:30 BP 155 / 74; Pulse 79; Resp 18 S; Pulse Ox 100% on R/A; ha1 20:00 BP 146 / 73; Pulse 70; Resp 18 S; Pulse Ox 98% on R/A; ha1 20:25 BP 146 / 72; Pulse 68; Resp 18 S; Pulse Ox 97% on R/A; ha1 21:20 BP 134 / 60; Pulse 67; Resp 17 S; Pulse Ox 98% on R/A; ha1 22:09 BP 123 / 71; Pulse 75; Resp 18 S; Pulse Ox 98% on R/A; ha1 22:30 BP 115 / 65; Pulse 68; Resp 18 S; Pulse Ox 98% on R/A; ha1 23:00 BP 113 / 73; Pulse 62; Resp 16; Pulse Ox 98% on R/A; ha1 19:15 Body Mass Index 27.44 (68.04 kg, 157.48 cm) cm10 19:15 Pain Scale: Adult cm10 ED Course: 19:13 Patient arrived in ED. jj6 19:13 Anastasiya Gill PA-C is PHCP. sb4 19:13 Se Ohara MD is Attending Physician. sb4 19:17 Triage completed. cm10 19:18 Arm band placed on Patient placed in an exam room, on a stretcher. cm10 19:18 Client placed on continuous cardiac and pulse oximetry monitoring. NIBP monitoring ha1 applied. 19:18 Patient has correct armband on for positive identification. Placed in gown. Bed in low ha1 position. Call light in reach. Side rails up X 1. 19:18 Patient maintains SpO2 saturation greater than 95% on room air. ha1 19:30 Inserted saline lock: 20 gauge in left antecubital area, using aseptic technique. Blood ha1 collected. 19:36 Stephanie Easton, RN is Primary Nurse. ha1 19:48 Basic Metabolic Panel Sent. ha1 19:48 CBC with Diff Sent. ha1 19:48 LFT's Sent. ha1 19:48 Magnesium Sent. ha1 19:48 NT PRO-BNP Sent. ha1 19:48 PT-INR Sent. ha1 19:48 Troponin HS Sent. ha1 19:55 XRAY Chest (1 view) In Process Unspecified. EDMS 20:51 CT Chest, Abdomen, Pelvis - W/Contrast In Process Unspecified. EDMS 22:08 Troponin High Sensitivity: draw at 2200 please Sent. ha1 22:46 Ruben Quesada MD is Referral Physician. sb4 23:15 Provided Education on: need to follow up with cardiology . ha1 23:15 No provider procedures requiring assistance completed. ha1 23:15 IV discontinued, intact, bleeding controlled, No redness/swelling at site. Pressure ha1 dressing applied. Administered Medications: 19:30 Drug: Aspirin PO Chewable Tablet 324 mg PO once; 81 mg tablets x 4 Route: PO; ha1 20:00 Follow up: Response: No adverse reaction ha1 19:38 Drug: Ondansetron IVP 4 mg IVP once; over 2 minutes Route: IVP; Site: left antecubital; ha1 20:00 Follow up: Response: No adverse reaction ha1 19:40 Drug: morphine IVP or IV 4 mg IVP once over 4 mins Route: IVP; Infused Over: 4 mins; ha1 Site: left antecubital; 20:00 Follow up: Response: No adverse reaction; Pain is decreased; RASS: Alert and Calm (0) ha1 22:00 Drug: Nitroglycerin Sublingual 0.4 mg Sublingual once; every five minute if needed x3 ha1 Route: Sublingual; 22:31 Drug: Nitroglycerin Sublingual 0.4 mg Sublingual once; every five minute if needed x3 ha1 Route: Sublingual; 23:00 Follow up: Response: No adverse reaction ha1 Medication: 21:26 VIS not applicable for this client. ha1 Outcome: 22:47 Discharge ordered by . carson 23:15 Discharged to home ambulatory, ha1 23:15 Condition: stable 23:15 Discharge instructions given to patient, Instructed on discharge instructions, follow up and referral plans. medication usage, Demonstrated understanding of instructions, follow-up care, medications, Prescriptions given X 1, 23:16 Patient left the ED. ha1 Signatures: Dispatcher [employer] EDMS Charles Yeimy [id number] Stephanie Easton RN RN ha1 Anastasiya Gill PA-C PA-C sb4 Anastasia Luong RN RN cm10 Corrections: (The following items were deleted from the chart) 22:09 21:20 Reassessment: Patient and/or family updated on plan of care and expected ha1 duration. Pain level reassessed. Patient is alert, oriented x 3, equal unlabored respirations, skin warm/dry/pink. PAIN 9/10 ha1
--- NOTE | 2023-09-02 22:48 | EDPHYS ---
Physician Documentation [facility] Name: Elaine Rowland Age: 53 yrs Sex: Female : 1970 Arrival Date: 09/02/2023 Time: 19:09 Bed 15 Private MD: ED Physician Se Ohara HPI: 09/02 19:27 This 53 yrs old Female presents to ER via Ambulatory with complaints of Chest Pain. sb4 19:27 Patient reports substernal chest pain that began 2 days ago that radiates to her back. sb4 She states it feels like someone is pinching her but also feels like someone is sitting on her chest. She additionally endorses periumbilical abdominal pain, nausea, vomiting, and diarrhea. She denies any shortness of breath or diaphoresis. Reports compliance with her medications. No history of CA or CVA. Historical: - Allergies: 19:17 NKDA; cm10 - PMHx: 19:17 abd hernia; acid reflux; Anxiety; cirrhosis of liver; COPD; Diabetes - NIDDM; cm10 Hyperlipidemia; Hypertensive disorder; - Immunization history:: Adult Immunizations unknown. - Social history:: Smoking status: Patient/guardian denies using tobacco, Stopped _ months ago 6. ROS: 19:27 Constitutional: Negative for fever, chills, and weight loss, sb4 19:27 Cardiovascular: Positive for chest pain, 19:27 Abdomen/GI: Positive for abdominal pain, nausea, vomiting, and diarrhea, 19:27 All other systems are negative, Exam: 19:27 Constitutional: This is a well developed, well nourished patient who is awake, alert, sb4 and in no acute distress. Head/Face: Normocephalic, atraumatic. Eyes: Extra-ocular motions intact. Periorbital areas with no swelling, redness, or edema. ENT: Mucous membranes moist. Cardiovascular: Regular rate and rhythm with a normal S1 and S2. Respiratory: Lungs have equal breath sounds bilaterally, clear to auscultation and percussion. No rales, rhonchi or wheezes noted. No increased work of breathing, no retractions or nasal flaring. Skin: Warm, dry with normal turgor. Normal color with no rashes, no lesions, and no evidence of cellulitis. MS/ Extremity: Pulses equal, no cyanosis. Neurovascular intact. Full, normal range of motion. Neuro: Awake and alert, GCS 15, oriented to person, place, time, and situation. Motor strength 5/5 in all extremities. Sensory grossly intact. 19:27 Abdomen/GI: Inspection: abdomen appears normal, Bowel sounds: normal, Palpation: soft, mild abdominal tenderness, in the umbilical area, Vital Signs: 19:15 BP 161 / 75; Pulse 78; Resp 18; Temp 98.5; Pulse Ox 100% on R/A; Weight 68.04 kg (R); cm10 Height 5 ft. 2 in. (R); Pain 9/10; 19:30 BP 155 / 74; Pulse 79; Resp 18 S; Pulse Ox 100% on R/A; ha1 20:00 BP 146 / 73; Pulse 70; Resp 18 S; Pulse Ox 98% on R/A; ha1 20:25 BP 146 / 72; Pulse 68; Resp 18 S; Pulse Ox 97% on R/A; ha1 21:20 BP 134 / 60; Pulse 67; Resp 17 S; Pulse Ox 98% on R/A; ha1 22:09 BP 123 / 71; Pulse 75; Resp 18 S; Pulse Ox 98% on R/A; ha1 22:30 BP 115 / 65; Pulse 68; Resp 18 S; Pulse Ox 98% on R/A; ha1 23:00 BP 113 / 73; Pulse 62; Resp 16; Pulse Ox 98% on R/A; ha1 19:15 Body Mass Index 27.44 (68.04 kg, 157.48 cm) cm10 19:15 Pain Scale: Adult cm10 MDM: 19:14 Patient medically screened. sb4 19:27 Differential diagnosis: Acute coronary syndrome, NSTEMI, STEMI, PE, gastroenteritis, sb4 pancreatitis, appendicitis, angina. 22:49 Data reviewed: vital signs, nurses notes, lab test result(s), EKG, radiologic studies, sb4 and as a result, I will discharge patient. Consideration of Admission/Observation Escalation of care including admission/observation considered. Care significantly affected by the following chronic conditions: Diabetes, Hypertension, Chronic Obstructive Pulmonary Disease. 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 Special discussion: Based on the patient's history, exam, and Dx evaluation, there is no indication for emergent intervention or inpatient Tx. It is understood by the patient/guardian that if the Sx's persist or worsen they need to return immediately for re-evaluation. 09/02 19:19 Order name: Basic Metabolic Panel; Complete Time: 20:35 sb4 09/02 19:19 Order name: CBC with Diff; Complete Time: 20:18 sb4 09/02 19:19 Order name: LFT's; Complete Time: 20:35 sb4 09/02 19:19 Order name: Magnesium; Complete Time: 20:35 sb4 09/02 19:19 Order name: NT PRO-BNP; Complete Time: 20:35 sb4 09/02 19:19 Order name: PT-INR; Complete Time: 20:16 sb4 09/02 19:19 Order name: Troponin HS; Complete Time: 20:35 sb4 09/02 19:26 Order name: Lipase; Complete Time: 20:28 sb4 09/02 21:07 Order name: Troponin High Sensitivity: draw at 2200 please; Complete Time: 22:39 sb4 09/02 19:19 Order name: XRAY Chest (1 view); Complete Time: 20:05 sb4 09/02 20:36 Order name: CT Chest, Abdomen, Pelvis - W/Contrast; Complete Time: 21:01 sb4 09/02 19:19 Order name: EKG; Complete Time: 19:20 sb4 09/02 19:19 Order name: Cardiac monitoring; Complete Time: 19:36 sb4 09/02 19:19 Order name: EKG - Nurse/Tech; Complete Time: 19:36 sb4 09/02 19:19 Order name: IV Saline Lock; Complete Time: 19:48 sb4 09/02 19:19 Order name: Labs collected and sent; Complete Time: 19:48 sb4 09/02 19:19 Order name: O2 Per Protocol; Complete Time: 19:48 sb4 09/02 19:19 Order name: O2 Sat Monitoring; Complete Time: 19:48 sb4 EC:42 Rate is 77 beats/min. Rhythm is regular, Normal Sinus Rhythm. [place] interval is normal at sb4 77 msec. QRS interval is normal at 82 msec. QT interval is normal at [address] changes noted. Clinical impression: Abnormal EKG without significant change. Interpreted by me. Reviewed by me. Administered Medications: 19:30 Drug: Aspirin PO Chewable Tablet 324 mg PO once; 81 mg tablets x 4 Route: PO; ha1 20:00 Follow up: Response: No adverse reaction ha1 19:38 Drug: Ondansetron IVP 4 mg IVP once; over 2 minutes Route: IVP; Site: left antecubital; ha1 20:00 Follow up: Response: No adverse reaction ha1 19:40 Drug: morphine IVP or IV 4 mg IVP once over 4 mins Route: IVP; Infused Over: 4 mins; ha1 Site: left antecubital; 20:00 Follow up: Response: No adverse reaction; Pain is decreased; RASS: Alert and Calm (0) ha1 22:00 Drug: Nitroglycerin Sublingual 0.4 mg Sublingual once; every five minute if needed x3 ha1 Route: Sublingual; 22:31 Drug: Nitroglycerin Sublingual 0.4 mg Sublingual once; every five minute if needed x3 ha1 Route: Sublingual; 23:00 Follow up: Response: No adverse reaction ha1 Disposition Summary: 09/02/23 22:47 Discharge Ordered Notes: Location: Home sb4 Problem: new sb4 Symptoms: have improved sb4 Condition: Stable sb4 Diagnosis - Chest pain, unspecified sb4 - Abdominal pain, unspecified sb4 Followup: sb4 - With: Ruben Quesada MD - When: 2 - 3 days - Reason: Recheck today's complaints, Re-evaluation by your physician Discharge Instructions: - Discharge Summary Sheet sb4 - Nonspecific Chest Pain, Adult, [id number] sb4 Forms: - Medication Reconciliation Form sb4 - Thank You Letter sb4 - Antibiotic Education sb4 - Prescription Opioid Use sb4 - Patient Portal Instructions sb4 - Leadership Thank You Letter sb4 Prescriptions: - Prednisone 20 mg Oral Tablet - take 1 tablet ORAL route once daily for 5 days; 5 tablet; Refills: 0, Product sb4 Selection Permitted Signatures: Dispatcher [employer] Stephanie Tomlinson, RN RN ha1 Anastasiya Gill, PAJose PALiyahC sb4 Anastasia Luong, RN RN cm10
[2023-09-02 23:38] VITALS: TEMP 98.5
[2023-09-02 23:47] VITALS: O2SAT 98
[2023-09-02 23:50] VITALS: BP 113/73
--- NOTE | 2023-09-03 12:22 | EKG ---
Test Date: 2023-09-02 Test Time: 19:27:32 Slag Worker: ALP MEASUREMENT RESULTS: Intervals: Rate: 77 OR: 158 QRSD: 82 QT: 394 QTc: 445 [place]: P: 59 OR: 158 QRS: 29 T: 68 INTERPRETIVE STATEMENTS: Normal sinus rhythm Septal infarct, age undetermined Abnormal ECG Compared to ECG 07/17/2023 16:15:31 Myocardial infarct finding now present Electronically Signed On 09-03-23 12:20:15 CDT by Ruben Quesada
== END 2023-09-02 23:16 | disposition home or self-care (01) ==
LOC: ER 19:09
DX: R07.9 Chest pain, unspecified (principal); R10.33 Periumbilical pain; R11.2 Nausea with vomiting, unspecified; E11.9 Type 2 diabetes mellitus without complications; I10 Essential (primary) hypertension
CPT/HCPCS: 93005; 85025; 80048; 36415; 83735; 85610; 80076; 84484 ×2; 83690; 83880; 71260; 74177; 71045; 96375; 96374; 99285; Q9967; J2405

== ENCOUNTER 2023-09-13 08:07 | Emergency (ER) | payer OTHER ==
--- OUTSIDE RECORDS SUMMARY | 2023-09-13 08:14 | XMS REPORT | Continuity of Care Document ---
:1970 Author Organization [facility] t Address [address] [place] [address] Care Team Providers Name Role Phone FLORINA BALTAZAR Primary Care Physician Unavailable MIREYA CENTENO Attending Clinician Unavailable PROVIDER, CAMPAIGNS Attending Clinician Unavailable Lab, Lcc Attending Clinician Unavailable Mireya Centeno MD Attending Clinician Doctor Unassigned, [place] Attending Clinician Unavailable CHARLETTE HOLLOWAY Attending Clinician [...] Number Effective Date Expiration Date Jessica DIANA [id number] 2022 2023 HOSP DIST 00:00:00 00:00:00 ICF [id number] 2021 2022 00:00:00 00:00:00 [facility] [id number] 2015 CARE 00:00:00 [place] CO. I H [id number] 2015 C 00:00:00 Problems Condition Condition Condition Status Onset Resolution Last Treating Co mments Source Name Details Category Date Date Treatment Clinician Date Nausea and Nausea and Disease Active U nivers vomiting vomiting 2-23 ity of 00:00: [place] 00 Medical Branch Bloating Bloating Disease Active Unive rs 2-23 ity of 00:00: [place] [facility] Carpal Carpal Disease Active Univers tunnel tunnel 2-05 ity of syndrome syndrome 00:00: [place] of right of right 00 Medica l wrist wrist Branch S/P left S/P left Disease Active Unive rs knee knee 1-08 ity of arthroscop [place]op [place] [facility] Essential Essential Disease Active Uni vers hypertensi hypertensi 730 it y of on on 00:00: [place] 00 Medical Branch Type 2 Type 2 Disease Active Univers diabetes diabetes 730 ity of mellitus mellitus 00:00: [place] without without 00 Medical complicati complicati Br anch on on Tobacco Tobacco Disease Active Univers abuse abuse 7 ity of 00:00: [place] 00 Medical Branch Allergies, Adverse Reactions, Alerts Allergy Allergy Status Severity Reaction(s) Onset Inactive Treating Comm ents Source Name Type Date Date Clinician IBUPROFE DRUG Active Anxiety 2014-11 Univers N INGREDI 0-27 ity of 00:00: [place] 00 [facility] Branch Ibuprofe Propensi Active Anxiety 2014-11 Pt has Unive rs n ty to 0-27 been ity of adverse 00:00: taking [place] reaction 00 advil at [facility] without any issues Social History Social Habit Start Date Stop Date Quantity Comments Source History of tobacco Cigarette Smoker University of use [facility] Exposure to 2023-01-11 2023-01-21 Not sure University SARS-CoV-2 (event) 00:00:00 10:29:00 [facility] Cigarettes smoked 2023-01-21 2023-01-21 Univers ity of current (pack per 00:00:00 00:00:00 [facility] ) - Reported Branch Tobacco use and 2023-01-21 2023-01-21 Smokeless Universit y of exposure 00:00:00 00:00:00 tobacco non-user [facility] Alcohol intake 2023-01-21 2023-01-21 0 /d University of 00:00:00 00:00:00 [facility] Tobacco Comment 2023-01-21 2023-01-21 Quit smoking Univers ity of 00:00:00 00:00:00 over one month [facility] Sex Assigned At [birth year] Universit y of 00:00:00 00:00:00 [facility] Smoking Status Start Date Stop Date Source Ex-smoker 2023-01-21 00:00:00 2023-01-21 00:00:00 Universi ty of [facility] Medications Ordered Filled Start Stop Current Ordering [...] Medical times Branch daily. pantoprazol 2022-0 Yes [id number] 40mg Take 1 Univers e 40 mg EC 2-23 tablet by ity of tablet 00:00: mouth in [place] [address] the Medical morning Branch and 1 tablet in the evening. pantoprazol 2022-0 Yes [id number] 40mg Take 1 Univers e 40 mg EC 2-23 tablet by ity of tablet 00:00: mouth in [place] 00 the Medical morning Branch and 1 tablet in the evening. pantoprazol 2022-0 Yes [id number] 40mg Take 1 Univers e 40 mg EC 2-23 tablet by ity of tablet 00:00: mouth in [place] [address] the Medical morning Branch and 1 tablet in the evening. insulin 2022- No 10U 10 Units, Univ ers regular 01-04 Slow IV ity of human 03:30: 03:03 Push, [place] (HUMULIN R) 00 :00 ONCE, 1 Medic al injection dose, On Branch 10 Units 01/03/23 at 2130, Routine
Indicatio n for insulin: Hyperglyce caleb iopamidol 2022- No [id number] 98mL 98 mL, Univers (ISOVUE 01-04 Intravenou [...] ity of succ 23:45: 23:12 Push, ONCE [place] (SOLU-MEDRO 00 :00 NOW, 1 Medica l [...] PATRIZIA solution 3 mL levoFLOXaci 2022-0 Yes [id number] 500mg Take 1 Univers n 1-12 tablet by ity of (LEVAQUIN) 00:00: mouth [place] 500 mg 00 every 24 Medical tablet (twenty-fo Branch ur) hours. predniSONE 3-0 Yes [id number] 60mg Take 3 U nivers 20 mg 1-12 tablets by ity of tablet 00:00: mouth [place] 00 every Medical morning. Branch albuterol 2022-0 Yes [id number] 2{puff} Inhale 2 Univers 90 1-12 Puffs ity of mcg/actuati 00:00: every 6 Sai as on inhaler 00 (six) Medical hours as Branch needed for Wheezing or Shortness of Breath. dextrometho 2022-0 Yes [id number] 10mL Take 10 mL Univers rphan-guaif 1-12 by mouth ity of enesin 00:00: every 6 [place] 10-100 mg/5 00 (six) Medical mL solution hours as Bran ch needed for Cough. levoFLOXaci 2022-0 Yes [id number] 500mg Take 1 Univers n 1-12 tablet by ity of (LEVAQUIN) 00:00: mouth [place] 500 mg 00 every 24 Medical tablet (twenty-fo Branch ur) hours. predniSONE 2022-0 Yes [id number] 60mg Take 3 U nivers 20 mg 1-12 tablets by ity of tablet 00:00: mouth [place] 00 every Medical morning. Branch albuterol 2022-0 Yes [id number] 2{puff} Inhale 2 Univers 90 1-12 Puffs ity of mcg/actuati 00:00: every 6 Sai as on inhaler 00 (six) Medical hours as Branch needed for Wheezing or Shortness of Breath. dextrometho 3-0 Yes [id number] 10mL Take 10 mL Univers rphan-guaif 1-12 by mouth ity of enesin 00:00: every 6 [place] 10-100 mg/5 00 (six) Medical mL solution hours as Bran ch needed for Cough. levoFLOXaci 2023-0 Yes [id number] 500mg Take 1 Univers n 1-12 tablet by ity of (LEVAQUIN) 00:00: mouth [place] 500 mg 00 every 24 Medical tablet (twenty-fo Branch ur) hours. predniSONE 2023-0 Yes [id number] 60mg Take 3 U nivers 20 mg 1-12 tablets by ity of tablet 00:00: mouth [place] 00 every Medical morning. Branch albuterol 2022-0 Yes [id number] 2{puff} Inhale 2 Univers 90 1-12 Puffs ity of mcg/actuati 00:00: every 6 Sai as on inhaler 00 (six) Medical hours as Branch needed for Wheezing or Shortness of Breath. dextrometho 2022-0 Yes [id number] 10mL Take 10 mL Univers rphan-guaif 1-12 by mouth ity of enesin 00:00: every 6 [place] 10-100 mg/5 00 (six) Medical mL solution hours as Bran ch needed for Cough. levoFLOXaci 2022-0 Yes [id number] 500mg Take 1 Univers n 1-12 tablet by ity of (LEVAQUIN) 00:00: mouth [place] 500 mg 00 every 24 Medical tablet (twenty-fo Branch ur) hours. predniSONE 2022-0 Yes [id number] 60mg Take 3 U nivers 20 mg 1-12 tablets by ity of tablet 00:00: mouth [place] 00 every Medical morning. Branch albuterol 2022-0 Yes [id number] 2{puff} Inhale 2 Univers 90 1-12 Puffs ity of mcg/actuati 00:00: every 6 Sai as on inhaler 00 (six) Medical hours as Branch needed for Wheezing or Shortness of Breath. dextrometho 2022-0 Yes [id number] 10mL Take 10 mL Univers rphan-guaif 1-12 by mouth ity of enesin 00:00: every 6 [place] 10-100 mg/5 00 (six) Medical mL solution hours as Bran ch needed for Cough. levoFLOXaci 2022-0 Yes [id number] 500mg Take 1 Univers n 1-12 tablet by ity of (LEVAQUIN) 00:00: mouth [place] 500 mg 00 every 24 Medical tablet (twenty-fo Branch ur) hours. predniSONE 3-0 Yes [id number] 60mg Take 3 U nivers 20 mg 1-12 tablets by ity of tablet 00:00: mouth [place] 00 every Medical morning. Branch albuterol 2022-0 Yes [id number] 2{puff} Inhale 2 Univers 90 1-12 Puffs ity of mcg/actuati 00:00: every 6 Sai as on inhaler 00 (six) Medical hours as Branch needed for Wheezing or Shortness of Breath. dextrometho 2022-0 Yes [id number] 10mL Take 10 mL Univers rphan-guaif 1-12 by mouth ity of enesin 00:00: every 6 [place] 10-100 mg/5 00 (six) Medical mL solution hours as Bran ch needed for Cough. levoFLOXaci 0 Yes [id number] 500mg Take 1 Univers n 1-12 tablet by ity of (LEVAQUIN) 00:00: mouth [place] 500 mg 00 every 24 Medical tablet (twenty-fo Branch ur) hours. predniSONE 0 Yes [id number] 60mg Take 3 U nivers 20 mg 1-12 tablets by ity of tablet 00:00: mouth [place] 00 every Medical morning. Branch albuterol 0 Yes [id number] 2{puff} Inhale 2 Univers 90 1-12 Puffs ity of mcg/actuati 00:00: every 6 Sai as on inhaler 00 (six) Medical hours as Branch needed for Wheezing or Shortness of Breath. dextrometho 0 Yes [id number] 10mL Take 10 mL Univers rphan-guaif 1-12 [...] Wed11/30/22 at 0700, PATRIZIA iopamidol 2022- No [id number] 70mL 70 mL, U nivers (ISOVUE 11-30 [...] Wed11/30/22 at 0500, STAT glipiZIDE 2022-0 Yes [id number] 2.5mg Take 1 Univers XL 2.5 mg 1-02 tablet by ity o f 24 hr 00:00: mouth [place] tablet 00 daily with Medical breakfast. Branch ondansetron 2022-0 Yes [id number] 4mg Take 1 Univers 4 mg 1-02 tablet by ity of disintegrat 00:00: mouth [place] ing tablet 00 every 8 Medica l (eight) Branch hours as needed for Nausea and Vomiting (N/V). metFORMIN 2022-0 Yes [id number] 1000mg Take 1 Univers 1,000 mg 1-02 tablet by ity of tablet 00:00: mouth in [place] 00 the Medical morning Branch and 1 tablet in the evening. Take with meals. glipiZIDE 2022-0 Yes [id number] 2.5mg Take 1 Univers XL 2.5 mg 1-02 tablet by ity o f 24 hr 00:00: mouth [place] tablet 00 daily with Medical breakfast. Branch ondansetron 2022-0 Yes [id number] 4mg Take 1 Univers 4 mg 1-02 tablet by ity of disintegrat 00:00: mouth [place] ing tablet 00 every 8 Medica l (eight) Branch hours as needed for Nausea and Vomiting (N/V). metFORMIN 2022-0 Yes [id number] 1000mg Take 1 Univers 1,000 mg 1-02 tablet by ity of tablet 00:00: mouth in [place] 00 the Medical morning Branch and 1 tablet in the evening. Take with meals. glipiZIDE 2022-0 Yes [id number] 2.5mg Take 1 Univers XL 2.5 mg 1-02 tablet by ity o f 24 hr 00:00: mouth [place] tablet 00 daily with Medical breakfast. Branch ondansetron 2022-0 Yes [id number] 4mg Take 1 Univers 4 mg 1-02 tablet by ity of disintegrat 00:00: mouth [place] ing tablet 00 every 8 Medica l (eight) Branch hours as needed for Nausea and Vomiting (N/V). metFORMIN 3-0 Yes [id number] 1000mg Take 1 Univers 1,000 mg 1-02 tablet by ity of tablet 00:00: mouth in [place] 00 the Medical morning Branch and 1 tablet in the evening. Take with meals. glipiZIDE 2023-0 Yes [id number] 2.5mg Take 1 Univers XL 2.5 mg 1-02 tablet by ity o f 24 hr 00:00: mouth [place] tablet 00 daily with Medical breakfast. Branch ondansetron 2023-0 Yes [id number] 4mg Take 1 Univers 4 mg 1-02 tablet by ity of disintegrat 00:00: mouth [place] ing tablet 00 every 8 Medica l (eight) Branch hours as needed for Nausea and Vomiting (N/V). metFORMIN 3-0 Yes [id number] 1000mg Take 1 Univers 1,000 mg 1-02 tablet by ity of tablet 00:00: mouth in [place] 00 the Medical morning Branch and 1 tablet in the evening. Take with meals. glipiZIDE 2023-0 Yes [id number] 2.5mg Take 1 Univers XL 2.5 mg 1-02 tablet by ity o f 24 hr 00:00: mouth [place] tablet 00 daily with Medical breakfast. Branch ondansetron 3-0 Yes [id number] 4mg Take 1 Univers 4 mg 1-02 tablet by ity of disintegrat 00:00: mouth [place] ing tablet 00 every 8 Medica l (eight) Branch hours as needed for Nausea and Vomiting (N/V). metFORMIN 3-0 Yes [id number] 1000mg Take 1 Univers 1,000 mg 1-02 tablet by ity of tablet 00:00: mouth in [place] 00 the Medical morning Branch and 1 tablet in the evening. Take with meals. glipiZIDE 2023-0 Yes [id number] 2.5mg Take 1 Univers XL 2.5 mg 1-02 tablet by ity o f 24 hr 00:00: mouth [place] tablet 00 daily with Medical breakfast. Branch ondansetron 2023-0 Yes [id number] 4mg Take 1 Univers 4 mg 1-02 tablet by ity of disintegrat 00:00: mouth [place] ing tablet 00 every 8 Medica l (eight) Branch hours as needed for Nausea and Vomiting (N/V). metFORMIN 2023-0 Yes [id number] 1000mg Take 1 Univers 1,000 mg 1-02 tablet by ity of tablet 00:00: mouth in [place] 00 the Medical morning Branch and 1 tablet in the evening. Take with meals. glipiZIDE Yes [id number] 2.5mg Take 1 Univers XL 2.5 mg 1-02 tablet by ity o f 24 hr 00:00: mouth [place] tablet 00 daily with Medical breakfast. Branch ondansetron Yes [id number] 4mg Take 1 Univers 4 mg 1-02 tablet by ity of disintegrat 00:00: mouth [place] ing tablet 00 every 8 Medica l (eight) Branch hours as needed for Nausea and Vomiting (N/V). metFORMIN Yes [id number] 1000mg Take 1 Univers 1,000 mg 1-02 tablet by ity of tablet 00:00: mouth in [place] 00 the Medical morning Branch and 1 [...] Slow IV ity of human 02:00: 01:15 [facility], [place] (HUMULIN R) 00 :00 ONCE, 1 Medic al injection dose, On Branch 10 Units Wed11/03/22 at 2000, Routine
Indicatio n for insulin: Hyperglyce caleb NaCl 0.9% 2021-11- No 1000mL at 999 Uni vers (NS) bolus 01-05 mL/hr, ity of infusion 01:00: 02:30 1,000 mL, Sai as 1,000 mL 00 :00 IV Medical Infusion, [place] ONCE, 1 dose, On Wed11/03/22 at 1900, STAT canaglifloz 2021-11- No [id number] 1{tbl} Take 1 Univers in-metformi 01-0406 tablet by it y of n 00:00: 05:59 mouth in [place] (INVOKAMET) 00 :00 the Medical 150-1,000 morning Branch mg per and 1 tablet tablet in the evening. Do all this for 30 days. canaglifloz 2021-11- No [id number] 1{tbl} Take 1 Univers in-metformi 01-04 tablet by it y of n 00:00: 05:59 mouth in [place] (INVOKAMET) 00 :00 the Medical 150-1,000 morning [...] y of water 2 00:00: 02:33 Administer Sia as gram/50 mL 00 :00 over 60 Medica l (4 %) Minutes, Branch infusion 2 ONCE, 1 g dose, On Wed10/28/22 at 1800, Routine ciprofloxac 2021-11 Yes [id number] 500mg Take 1 Univers in HCl 500 1-30 tablet by ity of mg tablet 00:00: [place] 00 the Medical morning Branch and 1 tablet in the evening. ondansetron 2021-11 Yes [id number] 4mg Take 1 Univers 4 mg 1-30 tablet by ity of disintegrat 00:00: mouth [place] ing tablet 00 every 8 Medica l (eight) Branch hours as needed for Nausea and Vomiting (N/V). ciprofloxac 2021-11 Yes [id number] 500mg Take 1 Univers in HCl 500 1-30 tablet by ity of mg tablet 00:00: mouth [place] 00 the Medical morning Branch and 1 tablet in the evening. ondansetron 2021-11 Yes [id number] 4mg Take 1 Univers 4 mg 1-30 tablet by ity of disintegrat 00:00: mouth [place] ing tablet 00 every 8 Medica l (eight) Branch hours as needed for Nausea and Vomiting (N/V). ciprofloxac 2021-11 Yes [id number] 500mg Take 1 Univers in HCl 500 1-30 tablet by ity of mg tablet 00:00: mouth [place] 00 the Medical morning Branch and 1 tablet in the evening. ciprofloxac 2021-11 Yes [id number] 500mg Take 1 Univers in HCl 500 1-30 tablet by ity of mg tablet 00:00: mouth [place] 00 the Medical morning Branch and 1 tablet in the evening. ciprofloxac 2021-11 Yes [id number] 500mg Take 1 Univers in HCl 500 1-30 tablet by ity of mg tablet 00:00: mouth [place] 00 the Medical morning Branch and 1 tablet in the evening. ciprofloxac 2021-11 Yes [id number] 500mg Take 1 Univers in HCl 500 1-30 tablet by ity of mg tablet 00:00: mouth [place] 00 the Medical morning Branch and 1 tablet in the evening. ciprofloxac 2021-11 Yes [id number] 500mg Take 1 Univers in HCl 500 1-30 tablet by ity of mg tablet 00:00: mouth [place] 00 the Medical morning Branch and 1 tablet in the evening. ciprofloxac 2021-11 Yes [id number] 500mg Take 1 Univers in HCl 500 1-30 tablet by ity of mg tablet 00:00: mouth [place] 00 the Medical morning Branch and 1 tablet in the evening. ciprofloxac 2021-11 Yes [id number] 500mg Take 1 Univers in HCl 500 1-30 tablet by ity of mg tablet 00:00: mouth [place] 00 the Medical morning Branch and 1 tablet in the evening. ondansetron 2021-11- No [id number] 4mg Take 1 Univers 4 mg 1-30 [...] 00 :00 dose, On Medic al mg [place] Branch 10/01/22 at 1745, PATRIZIA amoxicillin 2021-11- No [id number] 1{tbl} Take 1 Univers -clavulanat 12-01 11-11 tablet by it y of e 875-125 00:00: 05:59 mouth [place] mg per 00 :00 every 12 Medical tablet (twelve) Branch hours for 7 days. metFORMIN 2021-11- No 500mg 500 mg, Uni vers (GLUCOPHAGE 0-19 -19 Oral, ity of ) tablet 01:45: 00:55 ONCE, 1 [place] 500 mg 00 :00 dose, On Medical [facility] Branch 09/15/22 at 2045, Routine ketorolac 2021-11- No 15mg 15 mg, Unive rs (TORADOL) 0-16 09- Slow IV ity of injection 01:30: 00:55 Push, [place] 15 mg 00 :00 ONCE, 1 Medical dose, On Branch [facility] 09/15/22 at 2030, PATRIZIA iopamidol 2021-11- No [id number] 65mL 65 mL, U nivers (ISOVUE 0-16 09- Intravenou ity o f 370-500 mL) 00:15: 00:15 s, ONCE, 1 [place] injection 00 :00 dose, On Medica l 65 mL [facility] Branch 09/15/22 at 1915, Routine metFORMIN 2021-11- No [id number] 500mg Take 1 Univers 500 mg 0-18 -18 tablet by ity of tablet 00:00: 05:59 mouth in [place] 00 :00 the Medical morning Branch and 1 tablet in the evening. Do all this for 30 days. metFORMIN 2021-11- No [id number] 500mg Take 1 Univers 500 mg 0-18 11-18 tablet by ity of tablet 00:00: 05:59 mouth in [place] 00 :00 the Medical morning Branch and 1 tablet in the evening. Do all this for 30 days. insulin 2021- No 10U 10 Units, Univ ers regular 08-21 Subcutaneo ity o f human 02:45: 01:57 us, ONCE, [place] (HUMULIN R) 00 :00 1 [...] 08/20/22 at 2100, PATRIZIA iopamidol 2021- No [id number] 55mL 55 mL, Univers (ISOVUE 8-15 08-15 [...] Medical Infusion, Branch ONCE, 1 dose, On [facility] 07/13/22 at 1715, PATRIZIA ondansetron Yes [id number] 4mg Take 1 Univers 4 mg 8-15 tablet by ity of disintegrat 00:00: mouth [place] ing tablet 00 every 8 Medica l (eight) Branch hours as needed for Nausea and Vomiting (N/V). dicyclomine Yes [id number] 20mg Take 1 Univers 20 mg 8-15 tablet by ity of tablet 00:00: mouth 4 [place] 00 (four) Medical times Branch daily as needed for Abdominal pain. ondansetron 2022-0 Yes [id number] 4mg Take 1 Univers 4 mg 8-15 tablet by ity of disintegrat 00:00: mouth [place] ing tablet 00 every 8 Medica l (eight) Branch hours as needed for Nausea and Vomiting (N/V). dicyclomine 2022-0 Yes [id number] 20mg Take 1 Univers 20 mg 8-15 tablet by ity of tablet 00:00: mouth 4 [place] (four) Medical times Branch daily as needed for Abdominal pain. ondansetron 2022-0 Yes [id number] 4mg Take 1 Univers 4 mg 8-15 tablet by ity of disintegrat 00:00: mouth [place] ing tablet 00 every 8 Medica l (eight) Branch hours as needed for Nausea and Vomiting (N/V). dicyclomine 2022-0 Yes [id number] 20mg Take 1 Univers 20 mg 8-15 tablet by ity of tablet 00:00: mouth 4 (four) Medical times Branch daily as needed for Abdominal pain. ondansetron 2-0 Yes [id number] 4mg Take 1 Univers 4 mg 8-15 tablet by ity of disintegrat 00:00: mouth [place] ing tablet 00 every 8 Medica l (eight) Branch hours as needed for Nausea and Vomiting (N/V). dicyclomine 2022-0 Yes [id number] 20mg Take 1 Univers 20 mg 8-15 tablet by ity of tablet 00:00: mouth (four) Medical times Branch daily as needed for Abdominal pain. ondansetron 2022-0 Yes [id number] 4mg Take 1 Univers 4 mg 8-15 tablet by ity of disintegrat 00:00: mouth [place] ing tablet 00 every 8 Medica l (eight) Branch hours as needed for Nausea and Vomiting (N/V). dicyclomine 2022-0 Yes [id number] 20mg Take 1 Univers 20 mg 8-15 tablet by ity of tablet 00:00: mouth 4 [place] 00 (four) Medical times Branch daily as needed for Abdominal pain. ondansetron 2022-0 Yes [id number] 4mg Take 1 Univers 4 mg 8-15 tablet by ity of disintegrat 00:00: mouth [place] ing tablet 00 every 8 Medica l (eight) Branch hours as needed for Nausea and Vomiting (N/V). dicyclomine 2022-0 Yes [id number] 20mg Take 1 Univers 20 mg 8-15 tablet by ity of tablet 00:00: mouth 4 [place] 00 (four) Medical times Branch daily as needed for Abdominal pain. ondansetron 2022-0 Yes [id number] 4mg Take 1 Univers 4 mg 8-15 tablet by ity of disintegrat 00:00: mouth [place] ing tablet 00 every 8 Medica l (eight) Branch hours as needed for Nausea and Vomiting (N/V). dicyclomine 2022-0 Yes [id number] 20mg Take 1 Univers 20 mg 8-15 tablet by ity of tablet 00:00: mouth 4 (four) Medical times Branch daily as needed for Abdominal pain. ondansetron 2022-0 Yes [id number] 4mg Take 1 Univers 4 mg 8-15 tablet by ity of disintegrat 00:00: mouth [place] ing tablet 00 every 8 Medica l (eight) Branch hours as needed for Nausea and Vomiting (N/V). dicyclomine 2022-0 Yes [id number] 20mg Take 1 Univers 20 mg 8-15 tablet by ity of tablet 00:00: mouth (four) Medical times Branch daily as needed for Abdominal pain. ondansetron 2022-0 Yes [id number] 4mg Take 1 Univers 4 mg 8-15 tablet by ity of disintegrat 00:00: mouth [place] ing tablet 00 every 8 Medica l (eight) Branch hours as needed for Nausea and Vomiting (N/V). dicyclomine 2022-0 Yes [id number] 20mg Take 1 Univers 20 mg 8-15 tablet by ity of tablet 00:00: mouth 4 00 (four) Medical times Branch daily as needed for Abdominal pain. ondansetron 2022-0 Yes [id number] 4mg Take 1 Univers 4 mg 8-15 tablet by ity of disintegrat 00:00: mouth [place] ing tablet 00 every 8 Medica l (eight) Branch hours as needed for Nausea and Vomiting (N/V). dicyclomine 2022-0 Yes [id number] 20mg Take 1 Univers 20 mg 8-15 tablet by ity of tablet 00:00: mouth 4 [place] 00 (four) Medical times Branch daily as needed for Abdominal pain. ondansetron 2-0 Yes [id number] 4mg Take 1 Univers 4 mg 8-15 tablet by ity of disintegrat 00:00: mouth [place] ing tablet 00 every 8 Medica l (eight) Branch hours as needed for Nausea and Vomiting (N/V). dicyclomine 2-0 Yes [id number] 20mg Take 1 Univers 20 mg 8-15 tablet by ity of tablet 00:00: mouth (four) Medical times Branch daily as needed for Abdominal pain. ondansetron 2-0 Yes [id number] 4mg Take 1 Univers 4 mg 8-15 tablet by ity of disintegrat 00:00: mouth [place] ing tablet 00 every 8 Medica l (eight) Branch hours as needed for Nausea and Vomiting (N/V). dicyclomine 2021-0 Yes [id number] 20mg Take 1 Univers 20 mg 8-15 tablet by ity of tablet 00:00: mouth (four) Medical times Branch daily as needed for Abdominal pain. ondansetron 2021-0 Yes [id number] 4mg Take 1 Univers 4 mg 8-15 tablet by ity of disintegrat 00:00: mouth [place] ing tablet 00 every 8 Medica l (eight) Branch hours as needed for Nausea and Vomiting (N/V). dicyclomine 2-0 Yes [id number] 20mg Take 1 Univers 20 mg 8-15 tablet by ity of tablet 00:00: mouth (four) Medical times Branch daily as needed for Abdominal pain. insulin 2021- No 10U 10 Units, Univ ers regular 05-11 Subcutaneo ity o f human 23:00: 22:19 , ONCE, [place] (HUMULIN R) 00 :00 1 dose, On Me dical injection Mon Branch 10 Units 05/11/22 at 1800, Routine NaCl 0.9% 2021- No 1000mL at 999 Uni vers (NS) bolus 05-11 mL/hr, ity of infusion 22:00: 22:55 1,000 mL, Sai as 1,000 mL 00 :00 IV Medical Infusion, Branch ONCE, 1 dose, On 05/11/22 at 1700, PATRIZIA cefdinir 2021- No [id number] 300mg Take 1 U nivers 300 mg 05-11 capsule by ity of capsule 00:00: 04:59 mouth 2 [place] 00 :00 (two) Medical times Branch daily for 7 days. acetaminoph 2021- No 650mg 650 mg, U nivers en 04-04 Oral, ity of (TYLENOL) 12:30: 11:28 ONCE, 1 [place] tablet 650 00 :00 dose, On Medic al mg 04/04/22 Branch at 0730, PATRIZIA cefTRIAXone 2021- No 1000mg 1,000 mg, Univers (ROCEPHIN) 04-04 IV ity of 1,000 mg in 11:15: 11:55 [place], [place] NaCl 0.9% 00 :00 ONCE, 1 [...] o f human 10:30: 09:36 , ONCE, [place] (HUMULIN R) 00 :00 1 dose, On Me dical injection 04/04/22 Bran ch 10 Units at 0530, Routine NaCl 0.9% 2021- No 1000mL at 999 Uni vers (NS) IV 5-07 05-07 mL/hr, ity of infusion 10:30: 11:55 Intravenou [place] 1,000 mL 00 :00 s, ONCE, 1 Medic al dose, On Branch 04/04/22 at 0530, PATRIZIA glipiZIDE 2021-0 Yes [id number] 2.5mg Take 1 Univers XL 2.5 mg 5-07 tablet by ity o f 24 hr 00:00: mouth [place] tablet 00 daily with Medical breakfast. Branch canaglifloz 2021-0 Yes [id number] 1{tbl} Take 1 Univers in-metformi 5-07 tablet by ity of n 00:00: mouth 2 [place] (INVOKAMET) 00 (two) Medical 150-1,000 times Branch mg per daily. tablet cefdinir 2-0 Yes [id number] 300mg Take 1 Un shawn 300 mg 5-07 capsule by ity of capsule 00:00: mouth [place] 00 every 12 Medical (twelve) Branch hours. glipiZIDE 2021-0 Yes [id number] 2.5mg Take 1 Univers XL 2.5 mg 5-07 tablet by ity o f 24 hr 00:00: mouth [place] tablet 00 daily with Medical breakfast. Branch canaglifloz 2021-0 Yes [id number] 1{tbl} Take 1 Univers in-metformi 5-07 tablet by ity of n 00:00: mouth 2 [place] (INVOKAMET) 00 (two) Medical 150-1,000 times Branch mg per daily. tablet cefdinir 2-0 Yes [id number] 300mg Take 1 Un shawn 300 mg 5-07 capsule by ity of capsule 00:00: mouth [place] 00 every 12 Medical (twelve) Branch hours. glipiZIDE 2-0 Yes [id number] 2.5mg Take 1 Univers XL 2.5 mg 5-07 tablet by ity o f 24 hr 00:00: mouth [place] tablet 00 daily with Medical breakfast. Branch canaglifloz 2-0 Yes [id number] 1{tbl} Take 1 Univers in-metformi 5-07 tablet by ity of n 00:00: mouth 2 [place] (INVOKAMET) 00 (two) Medical 150-1,000 times Branch mg per daily. tablet cefdinir 2022-0 Yes [id number] 300mg Take 1 Un shawn 300 mg 5-07 capsule by ity of capsule 00:00: mouth [place] 00 every 12 Medical (twelve) Branch hours. glipiZIDE 2022-0 Yes [id number] 2.5mg Take 1 Univers XL 2.5 mg 5-07 tablet by ity o f 24 hr 00:00: mouth [place] tablet 00 daily with Medical breakfast. Branch canaglifloz 2022-0 Yes [id number] 1{tbl} Take 1 Univers in-metformi 5-07 tablet by ity of n 00:00: mouth 2 [place] (INVOKAMET) 00 (two) Medical 150-1,000 times Branch mg per daily. tablet cefdinir 2022-0 Yes [id number] 300mg Take 1 Un shawn 300 mg 5-07 capsule by ity of capsule 00:00: mouth [place] 00 every 12 Medical (twelve) Branch hours. glipiZIDE 2022-0 Yes [id number] 2.5mg Take 1 Univers XL 2.5 mg 5-07 tablet by ity o f 24 hr 00:00: mouth [place] tablet 00 daily with Medical breakfast. Branch canaglifloz 2022-0 Yes [id number] 1{tbl} Take 1 Univers in-metformi 5-07 tablet by ity of n 00:00: mouth 2 [place] (INVOKAMET) 00 (two) Medical 150-1,000 times Branch mg per daily. tablet cefdinir 2022-0 Yes [id number] 300mg Take 1 Un shawn 300 mg 5-07 capsule by ity of capsule 00:00: mouth [place] 00 every 12 Medical (twelve) Branch hours. glipiZIDE 2022-0 Yes [id number] 2.5mg Take 1 Univers XL 2.5 mg 5-07 tablet by ity o f 24 hr 00:00: mouth [place] tablet 00 daily with Medical breakfast. Branch canaglifloz 2022-0 Yes [id number] 1{tbl} Take 1 Univers in-metformi 5-07 tablet by ity of n 00:00: mouth 2 [place] (INVOKAMET) 00 (two) Medical 150-1,000 times Branch mg per daily. tablet glipiZIDE 2022-0 Yes [id number] 2.5mg Take 1 Univers XL 2.5 mg 5-07 tablet by ity o f 24 hr 00:00: mouth [place] tablet 00 daily with Medical breakfast. Branch canaglifloz Yes [id number] 1{tbl} Take 1 Univers in-metformi 5-07 tablet by ity of n 00:00: mouth 2 [place] (INVOKAMET) 00 (two) Medical 150-1,000 times Branch mg per daily. tablet glipiZIDE Yes [id number] 2.5mg Take 1 Univers XL 2.5 mg 5-07 tablet by ity o f 24 hr 00:00: mouth [place] tablet 00 daily with Medical breakfast. Branch glipiZIDE 2022- No [id number] 2.5mg Take 1 Univers XL 2.5 mg 5-07 -02 tablet by ity of 24 hr 00:00: 00:00 mouth [place] tablet 00 :00 daily with Medical breakfast. Branch canaglifloz 2021- No [id number] 1{tbl} Take 1 Univers in-metformi 5-07 -06 tablet by it y of n 00:00: 00:00 mouth 2 [place] (INVOKAMET) 00 :00 (two) Medical 150-1,000 times Branch mg per daily. tablet cefdinir 2021- No [id number] 300mg Take 1 U nivers 300 mg -06 08-03 capsule by ity of capsule 00:00: 00:00 mouth [place] 00 :00 every 12 Medical (twelve) Branch hours. cefTRIAXone 2021- No 1000mg 1,000 mg, Univers (ROCEPHIN) 12-06-08 IV ity of 1,000 mg in 17:45: 17:26 [place], [place] NaCl 0.9% 00 :00 ONCE, 1 Medical (NS) 50 mL dose, On Bran h MINI-BAG 12/06/21 at 1145, Administer over 30 Minutes, 50 mL
R lianne for Anti-Infec tive: Documented Infection< br>Documen jesus Infection Site: Urine<br&g t;Duration of Therapy: Other (see Comments) iopamidol 2021- No [id number] 100mL 100 mL, Univers (ISOVUE 1-08 01-08 Intravenou ity o f 370-500 mL) 17:15: 15:50 s, ONCE, 1 [place] injection 00 :00 dose, On Medica l 100 mL 12/06/21 Branch at 1115, Routine cephALEXin 2022-0 Yes [id number] 500mg Take 1 Univers (KEFLEX) 1-08 capsule by ity o f 500 mg 00:00: mouth 3 [place] capsule 00 (three) Medical times Branch daily. cephALEXin 202-0 Yes [id number] 500mg Take 1 Univers (KEFLEX) 1-08 capsule by ity o f 500 mg 00:00: mouth 3 [place] capsule 00 (three) Medical times Branch daily. cephALEXin 2022-0 Yes [id number] 500mg Take 1 Univers (KEFLEX) 1-08 capsule by ity o f 500 mg 00:00: mouth 3 [place] capsule 00 (three) Medical times Branch daily. cephALEXin 202-0 Yes [id number] 500mg Take 1 Univers (KEFLEX) 1-08 capsule by ity o f 500 mg 00:00: mouth 3 [place] capsule 00 (three) Medical times Branch daily. cephALEXin 202-0 Yes [id number] 500mg Take 1 Univers (KEFLEX) 1-08 capsule by ity o f 500 mg 00:00: mouth 3 [place] capsule 00 (three) Medical times Branch daily. cephALEXin 2022-0 Yes [id number] 500mg Take 1 Univers (KEFLEX) 1-08 capsule by ity o f 500 mg 00:00: mouth 3 [place] capsule 00 (three) Medical times Branch daily. cephALEXin 2022-0 2- No [id number] 500mg Take 1 Univers (KEFLEX) 1-08 11-03 capsule by ity of 500 mg 00:00: 00:00 mouth 3 [place] capsule 00 :00 (three) Medical times Branch daily. glipiZIDE Yes [id number] 2.5mg Take 1 Univers XL 2.5 mg 6-15 tablet by ity o f 24 hr 00:00: mouth [place] tablet 00 daily with Medical breakfast. Branch glipiZIDE Yes [id number] 2.5mg Take 1 [facility] XL 2.5 mg 6-15 tablet by ity o f 24 hr 00:00: mouth [place] tablet 00 daily with Medical breakfast. Branch glipiZIDE Yes [id number] 2.5mg Take 1 [facility] XL 2.5 mg 6-15 tablet by ity o f 24 hr 00:00: mouth [place] tablet 00 daily with Medical breakfast. [place] glipiZIDE Yes [id number] 2.5mg Take 1 [facility] XL 2.5 mg 6-15 tablet by ity o f 24 hr 00:00: mouth [place] tablet 00 daily with Medical breakfast. [place] glipiZIDE Yes [id number] 2.5mg Take 1 [facility] XL 2.5 mg 6-15 tablet by ity o f 24 hr 00:00: mouth [place] tablet 00 daily with Medical breakfast. [place] glipiZIDE Yes [id number] 2.5mg Take 1 [facility] XL 2.5 mg 6-15 tablet by ity o f 24 hr 00:00: mouth [place] tablet 00 daily with Medical breakfast. [place] glipiZIDE Yes [id number] 2.5mg Take 1 [facility] XL 2.5 mg 6-15 tablet by ity o f 24 hr 00:00: mouth [place] tablet 00 daily with Medical breakfast. [place] glipiZIDE Yes [id number] 2.5mg Take 1 [facility] XL 2.5 mg 6-15 tablet by ity o f 24 hr 00:00: mouth [place] tablet 00 daily with Medical breakfast. [place] glipiZIDE Yes [id number] 2.5mg Take 1 [facility] XL 2.5 mg 6-15 tablet by ity o f 24 hr 00:00: mouth [place] tablet 00 daily with Medical breakfast. [place] glipiZIDE Yes [id number] 2.5mg Take 1 [facility] XL 2.5 mg 6-15 tablet by ity o f 24 hr 00:00: mouth [place] tablet 00 daily with Medical breakfast. [place] glipiZIDE Yes [id number] 2.5mg Take 1 [facility] XL 2.5 mg 6-15 tablet by ity o f 24 hr 00:00: mouth [place] tablet 00 daily with Medical breakfast. [place] glipiZIDE Yes [id number] 2.5mg Take 1 [facility] XL 2.5 mg 6-15 tablet by ity o f 24 hr 00:00: mouth [place] tablet 00 daily with Medical breakfast. [place] glipiZIDE Yes [id number] 2.5mg Take 1 [facility] XL 2.5 mg 6-15 tablet by ity o f 24 hr 00:00: mouth [place] tablet 00 daily with Medical breakfast. [place] glipiZIDE Yes [id number] 2.5mg Take 1 [facility] XL 2.5 mg 6-15 tablet by ity o f 24 hr 00:00: mouth [place] tablet 00 daily with Medical breakfast. [place] glipiZIDE Yes [id number] 2.5mg Take 1 [facility] XL 2.5 mg 6-15 tablet by ity o f 24 hr 00:00: mouth [place] tablet 00 daily with Medical breakfast. [place] glipiZIDE Yes [id number] 2.5mg Take 1 [facility] XL 2.5 mg 6-15 tablet by ity o f 24 hr 00:00: mouth [place] tablet 00 daily with Medical breakfast. [place] glipiZIDE Yes [id number] 2.5mg Take 1 [facility] XL 2.5 mg 6-15 tablet by ity o f 24 hr 00:00: mouth [place] tablet 00 daily with Medical breakfast. Branch INVOKAMET Yes [id number] TAKE ONE Univers 150-1,000 3-06 TABLET BY ity o f mg per 00:00: MOUTH [place] tablet 00 TWICE Medical DAILY Branch INVOKAMET Yes [id number] TAKE ONE Univers 150-1,000 3-06 TABLET BY ity o f mg per 00:00: MOUTH [place] tablet 00 TWICE Medical DAILY Branch INVOKAMET Yes [id number] TAKE ONE Univers 150-1,000 3-06 TABLET BY ity o f mg per 00:00: MOUTH [place] tablet 00 TWICE Medical DAILY Branch INVOKAMET Yes [id number] TAKE ONE Univers 150-1,000 3-06 TABLET BY ity o f mg per 00:00: MOUTH [place] tablet 00 TWICE Medical DAILY Branch INVOKAMET Yes [id number] TAKE ONE Univers 150-1,000 3-06 TABLET BY ity o f mg per 00:00: MOUTH [place] tablet 00 TWICE Medical DAILY Branch INVOKAMET Yes [id number] TAKE ONE Univers 150-1,000 3-06 TABLET BY ity o f mg per 00:00: MOUTH [place] tablet 00 TWICE Medical DAILY Branch INVOKAMET Yes [id number] TAKE ONE Univers 150-1,000 3-06 TABLET BY ity o f mg per 00:00: MOUTH [place] tablet 00 TWICE Medical DAILY Branch INVOKAMET [id number] Yes [id number] TAKE ONE Univers 150-1,000 3-06 TABLET BY ity o f mg per 00:00: MOUTH [place] tablet 00 TWICE Medical DAILY Branch INVOKAMET [id number] Yes [id number] TAKE ONE Univers 150-1,000 3-06 TABLET BY ity o f mg per 00:00: MOUTH [place] tablet 00 TWICE Medical DAILY Branch INVOKAMET [id number] 2022- No [id number] TAKE ONE Univers 150-1,000 3-06 12-06 TABLET [...] Medical times Branch daily. lovastatin 2016-11 Yes [id number] 40mg Take 1 U nivers 40 mg 0-26 tablet by ity of tablet 00:00: mouth at [place] 00 bedtime. Medical Branch lovastatin 2016-11 Yes [id number] 40mg Take 1 U nivers 40 mg 0-26 tablet by ity of tablet 00:00: mouth at [place] 00 bedtime. Medical Branch lovastatin 2016-11 Yes [id number] 40mg Take 1 U nivers 40 mg 0-26 tablet by ity of tablet 00:00: mouth at [place] 00 bedtime. Medical Branch lovastatin 2016-11 Yes [id number] 40mg Take 1 U nivers 40 mg 0-26 tablet by ity of tablet 00:00: mouth at [place] 00 bedtime. Medical Branch lovastatin 2016-11 Yes [id number] 40mg Take 1 U nivers 40 mg 0-26 tablet by ity of tablet 00:00: mouth at [place] [address] bedtime. Medical Branch lovastatin 2016-11 Yes [id number] 40mg Take 1 U nivers 40 mg 0-26 tablet by ity of tablet 00:00: mouth at [place] [address] bedtime. Medical Branch lovastatin 2016-11 Yes [id number] 40mg Take 1 U nivers 40 mg 0-26 tablet by ity of tablet 00:00: mouth at [place] [address] bedtime. Medical Branch lovastatin 2016-11 Yes [id number] 40mg Take 1 U nivers 40 mg 0-26 tablet by ity of tablet 00:00: mouth at [place] [address] bedtime. Medical Branch lovastatin 2016-11 Yes [id number] 40mg Take 1 U nivers 40 mg 0-26 tablet by ity of tablet 00:00: mouth at [place] [address] bedtime. Medical Branch lovastatin 2016-11 Yes [id number] 40mg Take 1 U nivers 40 mg 0-26 tablet by ity of tablet 00:00: mouth at [place] [address] bedtime. Medical Branch lovastatin 2016-11 Yes [id number] 40mg Take 1 U nivers 40 mg 0-26 tablet by ity of tablet 00:00: mouth at [place] [address] bedtime. Medical Branch lovastatin 2016-11 Yes [id number] 40mg Take 1 U nivers 40 mg 0-26 tablet by ity of tablet 00:00: mouth at [place] [address] bedtime. Medical Branch lovastatin 2016-11 Yes [id number] 40mg Take 1 U nivers 40 mg 0-26 tablet by ity of tablet 00:00: mouth at [place] [address] bedtime. Medical Branch lovastatin 2016-11 Yes [id number] 40mg Take 1 U nivers 40 mg 0-26 tablet by ity of tablet 00:00: mouth at [place] [address] bedtime. Medical Branch lovastatin 2016-11 Yes [id number] 40mg Take 1 U nivers 40 mg 0-26 tablet by ity of tablet 00:00: mouth at [place] [address] bedtime. Medical Branch lovastatin 2016-11 Yes [id number] 40mg Take 1 U nivers 40 mg 0-26 tablet by ity of tablet 00:00: mouth at [place] [address] bedtime. Medical Branch lovastatin 2016-11 Yes [id number] 40mg Take 1 U nivers 40 mg [...] 16:42:00 135 mm[Hg] Univer sity of pressure [place] [facility] [place] Diastolic blood 2023-01-21 16:42:00 85 mm[Hg] [facility] Heart rate 2023-01-21 16:42:00 79 /min [facility] Body temperature 2023-01-21 16:42:00 36.33 Anila Univ ersity of [place] [facility] Respiratory rate 2023-01-21 16:42:00 16 /min Univ ersity of [place] [facility] Body height 2023-01-21 16:42:00 157.5 cm Universi ty of [place] [facility] Body weight 2023-01-21 16:42:00 73.619 kg Universi ty of [place] [facility] BMI 2023-01-21 16:42:00 29.69 kg/m2 Universi ty of [place] [facility] Oxygen saturation in 2023-01-21 16:42:00 99 /min University of Arterial blood by [place] [employer] Pulse oximetry Branch Systolic blood 2023-01-04 03:03:00 168 mm[Hg] Univer sity of pressure [place] [facility] Diastolic blood 2023-01-04 03:03:00 69 mm[Hg] Unive rsity of pressure [place] [facility] Heart rate 2023-01-04 03:03:00 84 /min Universi ty of [place] [facility] Respiratory rate 2023-01-04 03:03:00 20 /min Univ ersity of [place] [facility] Oxygen saturation in 2023-01-04 03:03:00 97 /min University of Arterial blood by [place] [employer] Pulse oximetry Branch Body temperature 2023-01-04 01:40:00 37.39 Anila [facility] ersity of [place] [facility] Body height 2023-01-04 01:40:00 157.5 cm Universi ty of [place] [facility] Body weight 2023-01-04 01:40:00 71.215 kg Universi ty of [place] [facility] BMI 2023-01-04 01:40:00 28.72 kg/m2 Universi ty [facility] [place] [facility] Respiratory rate 2022-12-11 00:54:00 22 /min Univ ersity of [place] [facility] Oxygen saturation in 2022-12-11 00:54:00 100 /min University of Arterial blood by [place] [employer] Pulse oximetry Branch Systolic blood 2022-12-11 00:30:00 144 mm[Hg] Univer sity of pressure [place] [facility] Diastolic blood 2022-12-11 00:30:00 78 mm[Hg] Unive rsity of pressure [place] [facility] Heart rate 2022-12-11 00:30:00 99 /min Universi ty of [facility] Body temperature 2022-12-10 22:24:00 37.11 Anila Univ ersity of [facility] Body height 2022-12-10 22:24:00 157.5 cm Universi ty of [place] [facility] [place] Body weight 2022-12-10 22:24:00 71.215 kg Universi ty of [facility] BMI 2022-12-10 22:24:00 28.72 kg/m2 Universi ty of [facility] Systolic blood 2022-11-30 12:06:00 122 mm[Hg] Univer sity of pressure [facility] Diastolic blood 2022-11-30 12:06:00 77 mm[Hg] Unive rsity of pressure [facility] Heart rate 2022-11-30 12:06:00 64 /min Universi ty of [facility] Respiratory rate 2022-11-30 12:06:00 13 /min Univ ersity of [facility] Oxygen saturation in 2022-11-30 12:06:00 95 /min University of Arterial blood by [facility] Pulse oximetry Branch Body temperature 2022-11-30 09:55:00 36.72 Anila Univ ersity of [facility] Body height 2022-11-30 09:55:00 157.5 cm Universi ty of [facility] Body weight 2022-11-30 09:55:00 65.772 kg Universi ty of [facility] BMI 2022-11-30 09:55:00 26.52 kg/m2 Universi ty of [facility] Systolic blood 2022-11-03 23:02:00 148 mm[Hg] Univer sity of pressure [facility] Diastolic blood 2022-11-03 23:02:00 78 mm[Hg] Unive rsity of pressure [facility] Heart rate 2022-11-03 23:02:00 87 /min Universi ty of [facility] Body temperature 2022-11-03 23:02:00 37.44 Anila Univ ersity of [facility] Respiratory rate 2022-11-03 23:02:00 18 /min Univ ersity of [facility] Body height 2022-11-03 23:02:00 157.5 cm Universi ty of [facility] Body weight 2022-11-03 23:02:00 65.772 kg Universi ty of [place] [facility] BMI 2022-11-03 23:02:00 26.52 kg/m2 Universi ty of [place] [facility] Oxygen saturation in 2022-11-03 23:02:00 100 /min University of Arterial blood by [facility] Pulse oximetry Branch Systolic blood 2022-10-29 01:23:00 154 mm[Hg] Univer sity of pressure [place] [facility] Diastolic blood 2022-10-29 01:23:00 78 mm[Hg] Unive rsity of pressure [place] [facility] Heart rate 2022-10-29 01:23:00 66 /min Universi ty of [place] [facility] Respiratory rate 2022-10-29 01:23:00 18 /min Univ ersity of [place] [facility] Oxygen saturation in 2022-10-29 01:23:00 100 /min University of Arterial blood by [facility] Pulse oximetry Branch Body temperature 2022-10-28 21:44:00 37.5 Anila Univ ersity of [place] [facility] Body height 2022-10-28 21:44:00 157.5 cm Universi ty of [place] [facility] Body weight 2022-10-28 21:44:00 65.772 kg Universi ty of [place] [facility] BMI 2022-10-28 21:44:00 26.52 kg/m2 Universi ty [facility] [place] [facility] Systolic blood 2022-10-01 21:51:00 174 mm[Hg] Univer sity of pressure [place] [facility] Diastolic blood 2022-10-01 21:51:00 77 mm[Hg] Unive rsity of pressure [place] [facility] Heart rate 2022-10-01 21:51:00 80 /min Universi ty [facility] [place] [facility] Body temperature 2022-10-01 21:51:00 37.11 Anila Univ ersity of [place] [facility] Respiratory rate 2022-10-01 21:51:00 18 /min Univ ersity of [place] [facility] Body weight 2022-10-01 21:51:00 65.772 kg Universi ty of [place] [facility] BMI 2022-10-01 21:51:00 26.52 kg/m2 Universi ty of [place] [facility] Oxygen saturation in 2022-10-01 21:51:00 97 /min University of Arterial blood by [facility] Pulse oximetry Branch Systolic blood 2022-09-16 01:15:00 154 mm[Hg] Univer sity of pressure [place] [facility] Diastolic blood 2022-09-16 01:15:00 84 mm[Hg] Unive rsity of pressure [place] [facility] Heart rate 2022-09-16 01:15:00 65 /min Universi ty of [place] [facility] Oxygen saturation in 2022-09-16 01:15:00 99 /min University of Arterial blood by [place] [employer] Pulse oximetry Branch Body temperature 2022-09-15 22:45:00 37.11 Anila Univ ersity of [place] [facility] Respiratory rate 2022-09-15 21:36:00 18 /min Univ ersity of [place] [facility] Body weight 2022-09-15 21:36:00 68.04 kg Universi ty of [place] [facility] BMI 2022-09-15 21:36:00 27.44 kg/m2 Universi ty of [place] [facility] Systolic blood 2022-08-21 02:30:00 159 mm[Hg] Univer sity of pressure [place] [facility] Diastolic blood 2022-08-21 02:30:00 83 mm[Hg] Unive rsity of pressure [place] [facility] Heart rate 2022-08-21 02:30:00 77 /min Universi ty of [place] [facility] Respiratory rate 2022-08-21 02:30:00 17 /min Univ ersity of [place] [facility] Oxygen saturation in 2022-08-21 02:30:00 96 /min University of Arterial blood by [place] [employer] Pulse oximetry Branch Body temperature 2022-08-21 01:04:00 37.56 Anila Univ ersity of [place] [facility] Body height 2022-08-21 01:04:00 157.5 [...] 2022-07-13 22:20:00 18 /min Univ ersity of [place] [facility] Oxygen saturation in 2022-07-13 22:20:00 98 /min University of Arterial blood by [place] [employer] Pulse oximetry Branch Body temperature 2022-07-13 20:44:00 37.22 Anila [facility] ersity of [place] [facility] Body height 2022-07-13 20:44:00 157.5 cm Universi ty of [place] [facility] Body weight 2022-07-13 20:44:00 72.258 kg Universi ty of [place] [facility] BMI 2022-07-13 20:44:00 29.14 kg/m2 Universi ty [facility] [place] [facility] Systolic blood 2022-05-11 22:00:00 123 mm[Hg] Univer sity of pressure [place] [facility] Diastolic blood 2022-05-11 22:00:00 66 mm[Hg] Unive rsity of pressure [place] [facility] Heart rate 2022-05-11 22:00:00 76 /min Universi ty of [place] [facility] Respiratory rate 2022-05-11 22:00:00 17 /min Univ ersity of [place] [facility] Oxygen saturation in 2022-05-11 22:00:00 97 /min [facility] of Arterial blood by [place] [employer] Pulse oximetry Branch Body temperature 2022-05-11 20:43:00 36.44 Anila Univ ersity of [place] [facility] Body weight 2022-05-11 20:43:00 65.772 kg Universi ty of [place] [facility] BMI 2022-05-11 20:43:00 26.52 kg/m2 Universi ty of [place] [facility] Systolic blood 2022-04-04 12:00:00 130 mm[Hg] Univer sity of pressure [place] [facility] Diastolic blood 2022-04-04 12:00:00 75 mm[Hg] Unive rsity of pressure [place] [facility] Heart rate 2022-04-04 12:00:00 69 /min Universi ty of [place] [facility] Respiratory rate 2022-04-04 12:00:00 17 /min Univ ersity of [place] [facility] Oxygen saturation in 2022-04-04 12:00:00 95 /min University of Arterial blood by [place] [employer] Pulse oximetry Branch Body temperature 2022-04-04 09:00:00 37.28 Anila Univ ersity of [place] [facility] Systolic blood 2021-12-06 17:00:00 134 mm[Hg] Univer sity of pressure [facility] Diastolic blood 2021-12-06 17:00:00 77 mm[Hg] Unive rsity of [facility] Heart rate 2021-12-06 17:00:00 62 /min Universi ty of [facility] Respiratory rate 2021-12-06 17:00:00 16 /min Univ ersity of [facility] Oxygen saturation in 2021-12-06 17:00:00 98 /min University of Arterial blood by [facility] Pulse oximetry Branch Body temperature 2021-12-06 14:17:00 37.28 Anila Univ ersity [facility] Body weight 2021-12-06 14:17:00 65.772 kg Universi ty [facility] BMI 2021-12-06 14:17:00 26.52 kg/m2 [facility] Systolic blood 2021-12-06 08:13:00 141 mm[Hg] Univer sity of [facility] Diastolic blood 2021-12-06 08:13:00 69 mm[Hg] Unive rsity of [facility] Oxygen saturation in 2021-12-06 08:13:00 98 /min University of Arterial blood by [facility] Pulse oximetry Branch Heart rate 2021-12-06 07:00:00 74 /min Universi ty [facility] Respiratory rate 2021-12-06 07:00:00 18 /min Univ [facility] Body temperature 2021-12-06 03:56:00 36.61 Anila [facility] Body height 2021-12-06 03:56:00 157.5 cm Universi [facility] Body weight 2021-12-06 03:56:00 65.772 kg Universi [facility] BMI 2021-12-06 03:56:00 26.52 kg/m2 [facility] Procedures Procedure Date / Time Performing Clinician Source Performed ASSIGNMENT OF BENEFITS 2023-01-21 16:31:02 Doctor Unassigned, No [facility] POCT GLUCOSE (AUTOMATED) 2023-01-04 03:43:00 Charlette Holloway [facility] POCT GLUCOSE (AUTOMATED) 2023-01-04 03:03:00 Charlette Holloway [facility] CT ABDOMEN PELVIS W 2023-01-04 02:44:37 Charlette Holloway [facility] CONTRAST [facility] Branch LIPASE 2023-01-04 02:10:00 Charlette [facility] COMP. METABOLIC PANEL 2023-01-04 02:10:00 Charlette Holloway [facility] ([id number]) [facility] CBC WITH DIFF 2023-01-04 02:10:00 Charlette Holloway [facility] URINALYSIS 2023-01-04 02:10:00 Charlette Holloway [facility] CONSENT/REFUSAL FOR 2023-01-04 01:25:15 Doctor Unassigned, No Un [facility] DIAGNOSIS AND TREATMENT Name Medical Branch TROPONIN I 2022-12-10 23:09:00 Jonathan Baez [facility] COMP. METABOLIC PANEL 2022-12-10 23:09:00 Jonathan Baez [facility] ([id number]) [facility] CBC WITH DIFF 2022-12-10 23:09:00 Jonathan Baez [facility] PROTHROMBIN TIME / INR 2022-12-10 23:09:00 Jonathan Baez [facility] ACTIVATED PARTIAL 2022-12-10 23:09:00 [facility]/B 2022-12-10 23:09:00 Jonathan Baez [facility] N-TERMINAL PRO-BNP 2022-12-10 23:09:00 [facility]z [facility] COVID-19 (ID NOW RAPID 2022-12-10 23:09:00 Jonathan Baez [facility] TESTING) [facility] XR CHEST 1 VW 2022-12-10 23:04:00 Jonathan Baez [facility] POCT GLUCOSE (AUTOMATED) 2022-11-30 12:09:00 [facility] 2022-11-30 11:57:00 Jenny Burch [facility] CT ABDOMEN PELVIS W 2022-11-30 10:46:34 Jenny Burch [facility] CONTRAST [facility] Branch EKG-12 LEAD 2022-11-30 10:04:36 Jenny Burch [facility] LIPASE 2022-11-30 09:57:00 Jenny Burch [facility] TROPONIN I 2022-11-30 09:57:00 Jenny Burch [facility] COMP. METABOLIC PANEL 2022-11-30 09:57:00 Jenny Burch [facility] ([id number]) [facility] Branch CBC WITH DIFF 2022-11-30 09:57:00 Jenny Burch [facility] POCT GLUCOSE (AUTOMATED) 2022-11-30 09:51:00 Doctor Unassigned, No [facility] POCT GLUCOSE (AUTOMATED) 2022-11-04 02:29:00 Kobe Valencia [facility] TROPONIN I 2022-11-04 00:53:00 Kobe Valencia [facility] BASIC METABOLIC PANEL 2022-11-04 00:53:00 Kobe Valencia [facility] (NA, K, CL, CO2, Medical Branch GLUCOSE, BUN, CREATININE, CA) CBC WITH DIFF 2022-11-04 00:53:00 Kobe Valencia [facility] URINALYSIS 2022-11-04 00:53:00 Kobe Valencia [facility] POCT GLUCOSE (AUTOMATED) 2022-11-04 00:46:00 Kobe Valencia [facility] NOTICE OF PRIVACY 2022-11-03 22:47:19 Doctor Unassigned, No [facility] PRACTICES [facility] CONSENT/REFUSAL FOR 2022-11-03 22:46:47 Doctor Unassigned, No [facility] DIAGNOSIS AND TREATMENT [facility] URINALYSIS 2022-10-28 23:37:00 Jane Kyle [facility] XR CHEST 1 VW 2022-10-28 23:01:06 Jane Kyle [facility] LIPASE 2022-10-28 21:52:00 Jane Kyle [facility] MAGNESIUM 2022-10-28 21:52:00 Jane Kyle [facility] TROPONIN I 2022-10-28 21:52:00 Jane Kyle [facility] COMP. METABOLIC PANEL 2022-10-28 21:52:00 Jane Kyle [facility] ([id number]) Medical Branch CBC WITH DIFF 2022-10-28 21:52:00 Jane Kyle [facility] RAPID STREP SCREEN FOR 2022-10-28 21:47:00 Jane Kyle [facility] GROUP A [facility] RAPID INFLUENZA A/B 2022-10-28 21:47:00 Jane Kyle [facility] CONSENT/REFUSAL FOR 2022-10-01 21:40:59 Doctor Unassigned, No Un [facility] DIAGNOSIS AND TREATMENT Name [facility] POCT GLUCOSE(AGE 2022-09-16 00:56:00 Jane Kyle Lana [facility] >30DAYS) [facility] Branch POCT GLUCOSE (AUTOMATED) 2022-09-16 00:54:00 Jane Kyle [facility] CT ABDOMEN PELVIS W 2022-09-15 23:22:40 Jane Kyle [facility] CONTRAST [facility] LIPASE 2022-09-15 21:53:00 Amadou Doty [facility] TROPONIN I 2022-09-15 21:53:00 Jane Kyle [facility] COMP. METABOLIC PANEL 2022-09-15 21:53:00 [facility] ([id number]) [facility] CBC WITH DIFF 2022-09-15 21:53:00 Amadou Doty [facility] URINALYSIS 2022-09-15 21:53:00 Amadou Doty [facility] POCT GLUCOSE (AUTOMATED) 2022-08-21 01:57:00 Xiomara Hernandez [facility] BASIC METABOLIC PANEL 2022-08-21 01:15:[address] [facility] (NA, K, CL, CO2, Medical Branch GLUCOSE, BUN, CREATININE, CA) CBC WITH DIFF 2022-08-21 01:15:00 Xiomara Hernandez [facility] CT ABDOMEN PELVIS W 2022-07-13 22:19:12 Argelia Carson [facility] CONTRAST Medical Branch LIPASE 2022-07-13 20:55:00 [facility] MAGNESIUM 2022-07-13 20:55:00 [facility] COMP. METABOLIC PANEL 2022-07-13 20:55:00 Charlette Holloway [facility] ([id number]) [facility] CBC WITH DIFF 2022-07-13 20:55:00 [facility] URINALYSIS 2022-07-13 20:55:00 [facility] POCT GLUCOSE (AUTOMATED) 2022-05-11 22:54:00 Jc Mirza [facility] POCT GLUCOSE (AUTOMATED) 2022-05-11 22:16:00 Jc Mirza [facility] XR CHEST 1 VW 2022-05-11 21:12:40 Jc Mirza [facility] LIPASE 2022-05-11 21:10:00 Jc Mirza [facility] COMP. METABOLIC PANEL 2022-05-11 21:10:00 Jc Mirza [facility] ([id number]) [facility] CBC WITH DIFF 2022-05-11 21:10:00 Jc Mirza [facility] URINALYSIS 2022-05-11 21:10:00 Jc Mirza [facility] N-TERMINAL PRO-BNP 2022-05-11 21:10:00 [facility] COVID-19 (ID NOW RAPID 2022-05-11 21:10:[address] [facility] POCT GLUCOSE (AUTOMATED) 2022-04-04 11:05:00 Minh Hartman [facility] CT HEAD WO CONTRAST 2022-04-04 10:39:30 Minh Hartman [facility] URINE DRUG (IMMUNOASSAY) 2022-04-04 09:51:00 [facility] 2022-04-04 09:51:00 Minh Hartman [facility] RAPID INFLUENZA A/B 2022-04-04 09:51:00 Minh Hartman [facility] COVID-19 (ID NOW RAPID 2022-04-04 09:51:00 Minh Hartman [facility] TESTING) [facility] MAGNESIUM 2022-04-04 09:17:00 Minh Hartman [facility] COMP. METABOLIC PANEL 2022-04-04 09:17:00 Minh Hartman [facility] ([id number]) [facility] CBC WITH DIFF 2022-04-04 09:17:00 Minh Hartman [facility] POCT GLUCOSE (AUTOMATED) 2022-04-04 09:01:00 [facility] OF [facility]IVACY 2022-04-04 08:54:31 Doctor Unassigned, No [facility] PRACTICES Name [facility] CONSENT/REFUSAL FOR 2022-04-04 08:54:09 Doctor Unassigned, No [facility] DIAGNOSIS AND TREATMENT Name [facility] XR CHEST 1 VW 2021-12-06 16:10:[address] [facility] CT ABDOMEN PELVIS W 2021-12-06 16:03:48 Jonathan Baez [facility] CONTRAST [facility] CT HEAD WO CONTRAST 2021-12-06 16:03:29 Jonathan Baez [facility] URINALYSIS 2021-12-06 15:17:[address] [facility] URINE DRUG (IMMUNOASSAY) 2021-12-06 15:17:00 Jonathan Baez [facility] SCREEN W/O REFLEX COVID-19 (ID NOW RAPID 2021-12-06 14:33:00 Jonathan Baez [facility] TESTING) [facility] AC PANEL 21 + LACTIC 2021-12-06 14:32:00 Jonathan Baez [facility] ACID [facility] PROTHROMBIN TIME / INR 2021-12-06 14:31:00 Jonathan Baez [facility] ACTIVATED PARTIAL 2021-12-06 14:31:00 Jonathan Baez [facility] THRMPLAS [facility] N-TERMINAL PRO-BNP 2021-12-06 14:31:00 [facility]z [facility] TROPONIN I 2021-12-06 14:31:00 Nestor [facility] COMP. METABOLIC PANEL 2021-12-06 14:31:00 Jonathan Baez [facility] ([id number]) [facility] SALICYLATE 2021-12-06 14:31:00 Nestor [facility] ETHANOL 2021-12-06 14:31:00 Nestor [facility] CBC WITH DIFF 2021-12-06 14:31:00 Nestor [facility] EKG-12 LEAD 2021-12-06 08:02:36 Minh Hartman [facility] LIPASE 2021-12-06 05:07:00 Minh Hartman [facility] TROPONIN I 2021-12-06 05:07:00 Minh Hartman [facility] COMP. METABOLIC PANEL 2021-12-06 05:07:00 Minh Hartman [facility] ([id number]) [facility] CBC WITH DIFF 2021-12-06 04:20:00 Minh Hartman [facility] Encounters Start End Encounter Admission Attending Care Care Encounter Source Date/Time Date/Time Type Type Clinicians Facility Department ID 2023-01-25 Outpatient Helen CENTENO [facility] [id number] Univers 16:07:35 [facility] 2023-06-28 2023-06-28 Outpatient PROVIDER, SARAHY GÓMEZ [id number] Sarahy 00:00:00 00:00:00 CAMPAIGNS Seyb old 2023-04-22 2023-04-22 Outpatient Helen CENTENO [facility] [id number] Univers 11:00:00 11:00:00 [facility] 2023-01-21 2023-01-21 Want Ad Supervisor Lab, [facility] [id number] Univers 13:15:00 13:30:00 Visit Mireya Centeno SPECIALTY [id number] [id number] Mo jordan FORREST [address] [facility] 2023-01-21 2023-01-21 Office Monica [facility] [id number] Univers 11:00:00 11:30:00 Visit Mireya SPECIALTY [id number] ity of CARE 4.2.7.2.686 [facility] [id number] Mo jordan FORREST [address] [facility] 2023-01-21 2023-01-21 Outpatient R MONICA [facility] [id number] Univers 11:00:00 11:00:00 MIREYA ity [facility] 2023-01-21 2023-01-21 Orders Doctor MAURICE [id number] Univers 00:00:00 00:00:00 Only Unassigned, DAWSON [id number] ity of [facility] 4.2.7.2.686 [facility] [id number] [facility] [address] [place] 2023-01-03 2023-01-03 Emergency X AMIE [facility] ERT [id number] Univers 19:52:00 21:57:00 CHARLETTE amaya [facility] 2023-01-03 2023-01-03 Emergency [facility] [id number] Univers 19:52:00 21:57:00 Charlette WALLACE [id number] ity of [place] 4.2.7.2.686 [facility] [id number] [facility] [address] [place] 2022-12-10 2022-12-10 Emergency X [facility] ERT [id number] Univers 16:18:00 18:56:00 JONATHAN amaya [facility] 2022-12-10 2022-12-10 Emergency [facility] [id number] Univers 16:18:00 18:56:00 Jonathan WALLACE [id number] i ty of [facility] 4.2.7.2.686 [facility] [id number] [address] 2022-11-30 2022-11-30 Emergency X [facility] ERT [id number] Univers 03:53:00 06:45:00 JENNY ity [facility] 2022-11-30 2022-11-30 Emergency [facility] [id number] Univers 03:53:00 06:45:00 Jenny WALLACE [id number] ity of [facility] 4.2.7.2.686 [facility] [id number] [address] 2022-11-03 2022-11-03 Emergency X BOZENADZIL[facility] ERT [id number] Univers 17:03:00 20:37:00 KOBE henriquezy [facility] 2022-11-03 2022-11-03 Emergency JolieEl [facility] [id number] Univers 17:03:00 20:37:00 Kobe WALLACE 350.1.13.10 i ty of [place] 4.2.7.2.6 [facility] [id number] [address] 2022-10-28 2022-10-28 Emergency X Jane KYLE [facility] ERT [id number] Univers 15:53:00 20:50:00 ity of [facility] 2022-10-28 2022-10-28 Emergency Jenny Burch [facility] 1.2.840 .114 [id number] Univers 15:53:00 20:50:00 Jane Kyle 350.1.13.10 ity [facility] [address] [place] [id number] 2022-10-01 2022-10-01 Emergency X NIKKILEODANDZIL[facility] ERT [id number] Univers 16:52:00 17:11:00 XIOMARA henriquez y of [facility] 2022-10-01 2022-10-01 Emergency Amb[facility]DZ[facility] [id number] Univers 16:52:00 17:11:00 Xiomara WALLACE 350.1.13.10 ity [facility] 4.2.7.2.686 [facility] [id number] [address] 2022-09-15 2022-09-15 Emergency X SAROJ, K [facility] ERT [id number] Univers 16:35:00 20:25:00 ity of [facility] 2022-09-15 2022-09-15 Emergency Saroj, [facility] 1.2.840.114 [id number] Univers 16:35:00 20:25:00 Lanamic BOURGEOISJOANNE 350.1.13.10 i ty of [place] 4.2.7.2.686 [facility] [id number] [address] 2022-08-20 2022-08-20 Emergency [facility] [id number] Univers 20:04:00 21:53:00 MELER it [facility] 2022-08-20 2022-08-20 [facility] [id number] Univers 20:04:00 21:53:00 Xiomara WALLACE 350.1.13.10 ity [facility] 4.2.7.2.686 [facility] [id number] [address] 2022-07-13 2022-07-13 Emergency X [facility] ERT [id number] Univers 15:46:00 18:03:00 ARGELIA [facility] 2022-07-13 2022-07-13 Emergency [facility] 1.2.840.114 [id number] Univers 15:46:00 18:03:00 Argelia WALLACE 350.1.13.10 i ty of [place] 4.2.7.2.686 [facility] [id number] [address] 2022-05-11 2022-05-11 Emergency X [facility] ERT [id number] Univers 15:46:00 18:31:00 JC ity [facility] 2022-05-11 2022-05-11 Emergency [facility] [id number] Univers 15:46:00 18:31:00 Jc Helen RODRIGO 350.1.13.10 i ty of [facility] 4.2.7.2.686 [facility] [id number] [address] 2022-04-04 2022-04-04 [facility] X [facility] ERT [id number] Univers 03:54:00 07:11:00 MINH ity [facility] 2022-04-04 2022-04-04 [facility] [id number] Univers 03:54:00 07:11:00 Minh WALLACE 350.1.13.10 ity [facility] 4.2.7.2.686 [facility] [id number] [address] 2021-12-06 2021-12-06 [facility] Lyn [facility] ERT [id number] Univers 08:20:00 11:48:00 JONATHAN ity [facility] 2021-12-06 2021-12-06 [facility] 1.2.106.995 [id number] Univers 08:20:00 11:48:00 Jonathan WALLACE 350.1.13.10 i ty of [place] 4.2.7.2.686 [facility] [id number] [address] 2021-12-05 2021-12-06 [facility] ERT [id number] Univers 22:30:00 02:18:00 MINH henriquezester [facility] 2021-12-05 2021-12-06 [facility] [id number] Univers 22:30:00 02:18:00 Minh WALLACE 350.1.13.10 ity [facility] 4.2.7.2.[address] [place] [id number] 2015-06-10 2015-06-10 Tyson BALTAZAR [facility] RAD [id number] Univers 00:00:00 23:59:00 FLORINA leslie [facility] Results Test Description Test Time Test Comments Results Result Comments Source POCT GLUCOSE (AUTOMATED) 2023-01-04 03:45:41 Test Item Value Reference Range Interpretation Comme nts POCT GLU (test code = 4822958928) 324 mg/dL 70-110 H Notified Provider Lab Interpretation (test code = 05735-9) Abnormal [facility] GLUCOSE (AUTOMATED)2023-01-04 03:09:17 Test Item Value Reference Range Interpretation Comments POCT GLU (test code = 6070434013) 464 mg/dL 70-110 HH Lab Interpretation (test code = Abnormal 37612-0) [facility] GLUCOSE (AUTOMATED)2022-11-30 12:11:43 Test Item Value Reference Range Interpretation Comments POCT GLU (test code = 5891236167) 223 mg/dL 70-110 H Lab Interpretation (test code = Abnormal 67309-8) [facility] [id number] 10:28:35 Test Item Value Reference Interpretation Comments Range TROPONIN I (test 0.001 ng/mL See_Comment [Automated code = 2550024241) message] The system which generated this result [...] biotin. Lab Interpretation Normal (test code = 55973-4) [facility]. METABOLIC PANEL (53132)2022-11-30 10:16:54 Test Item Value Reference Range Interpretation Comments NA (test code = 132 mmol/L 135-145 L 3666332443) K (test code = 3.9 mmol/L 3.5-5.0 7676808014) CL (test code = 98 mmol/L 98-108 9334625221) CO2 TOTAL (test code = 27 mmol/L 23-31 7055237013) AGAP (test code = 2-16 9543495412) BUN (test code = 14 mg/dL 7-23 4827290939) GLUCOSE (test code = 282 mg/dL 70-110 H 3726300953) CREATININE (test code = 0.69 mg/dL 0.50-1.04 7031982635) TOTAL BILI (test code = 0.5 mg/dL 0.1-1.6 2318713702) CALCIUM (test code = 8.7 mg/dL 8.6-10.6 3179682347) T PROTEIN (test code = 7.0 g/dL 6.3-8.2 7480736277) ALBUMIN (test code = 4.1 g/dL 3.5-5.0 4684627182) ALK PHOS (test code = 135 U/L 34-122 H 6238916573) ALTv (test code = 52 U/L 5-35 H 1742-6) AST(SGOT) (test code = 30 U/L 13-40 8326003468) eGFR (test code = mL/min/1.73m2 9748052862) RUSS (test code = RUSS) Association of [...] tests). Lab Interpretation Abnormal (test code = 80383-9) [facility] 10:16:34 Test Item Value Reference Range Interpretation Comments LIPASE (test code = 3283416242) 120 U/L 0-220 Lab Interpretation (test code = Normal 46834-1) [facility] WITH [id number] 10:08:14 Test Item Value Reference Range Interpretation Comments WBC (test code = See_Comment [Automated 6690-2) message] The sy stem which generated this result transmitted reference range : 4.30 - 11.10 10*3/?L. The reference range was not used to interpret this result as normal/abnormal . RBC (test code = See_Comment [Automated 019-8) message] The sy stem which generated this [...] (test code = 37.2 fL 39.0-49.9 L 27813-6) RDW-CV (test code = 11.8 % 12.0-15.5 L 788-0) PLT (test code = See_Comment L [Automated 777-3) message] The sy stem which generated this result transmitted reference range : 166 - 358 10*3/ ?L. The reference r felix was not used to interpret this result as normal/abnormal . MPV (test code = 10.2 fL 9.5-12.9 41155-0) NRBC/100 WBC (test See_Comment [Automat ed code = 8889116179) message] The system which generated this result transmitted reference range : 0.0 - 10.0 /100 WBCs. The refer ence range was not u sed to interpret th is result as normal/abnormal . NRBC x10^3 (test code See_Comment [Auto mated = 7757719361) message] The s ystem which generated this result transmitted reference range : 10*3/?L. The reference range was not used to interpret this result as normal/abnormal . GRAN MAT (NEUT) % 58.2 % (test code = 770-8) IMM GRAN % (test code 0.20 % = 6108802554) LYMPH % (test code = 30.8 % 736-9) MONO % (test code = 7.2 % 5905-5) EOS % (test code = 3.0 % 713-8) BASO % (test code = 0.6 % 706-2) GRAN MAT x10^3(ANC) 3.06 10*3/uL 1.88-7.09 (test code = 4166930653) IMM GRAN x10^3 (test 0.00-0.06 code = 9682275955) LYMPH x10^3 (test code 1.62 10*3/uL 1.32-3.29 = 731-0) MONO x10^3 (test code 0.38 10*3/uL 0.33-0.92 = 742-7) EOS x10^3 (test code = 0.16 10*3/uL 0.03-0.39 711-2) BASO x10^3 (test code 0.03 10*3/uL 0.01-0.07 = 704-7) Lab Interpretation Abnormal (test code = 32193-0) [facility] GLUCOSE (AUTOMATED)2022-11-30 09:54:04 Test Item Value Reference Range Interpretation Comments POCT GLU (test code = 8417633206) 298 mg/dL 70-110 H Lab Interpretation (test code = Abnormal 15875-1) [facility] GLUCOSE (AUTOMATED)2022-11-04 02:36:44 Test Item Value Reference Range Interpretation Comments POCT GLU (test code = 5321582426) 222 mg/dL 70-110 H Lab Interpretation (test code = Abnormal 88372-1) [facility] METABOLIC PANEL (NA, K, CL, CO2, GLUCOSE, BUN, CREATININE, CA)2022-11-04 01:52:55 Test Item Value Reference Range Interpretation Comments NA (test code = 136 mmol/L 135-145 0059119022) K (test code = 4.2 mmol/L 3.5-5.0 6362088731) CL (test code = 102 mmol/L 98-108 1818560148) CO2 TOTAL (test code = 24 mmol/L 23-31 6850543816) AGAP (test code = 2-16 5636423968) BUN (test code = 18 mg/dL 7-23 9837760192) GLUCOSE (test code = 478 mg/dL 70-110 HH 7171098163) CREATININE (test code = 0.71 mg/dL 0.50-1.04 2367682610) CALCIUM (test code = 9.6 mg/dL 8.6-10.6 2950727635) eGFR (test code = mL/min/1.73m2 3321463714) RUSS (test code = RUSS) Association of [...] tests). Lab Interpretation Abnormal (test code = 56549-2) [facility] [id number] 01:42:22 Test Item Value Reference Interpretation Comments Range TROPONIN I (test 0.001 ng/mL See_Comment [Automated code = 4410813162) message] The system which generated this result [...] biotin. Lab Interpretation Normal (test code = 35967-0) [facility] [id number] 01:24:19 Test Item Value Reference Range Interpretation Comments WBC (test code = See_Comment [Automated 4190-2) message] The sy stem which generated this result transmitted reference range : 4.30 - 11.10 10*3/?L. The reference range was not used to interpret this result as normal/abnormal . RBC (test code = See_Comment [Automated 579-8) message] The sy stem which generated this [...] (test code = 37.5 fL 39.0-49.9 L 42215-3) RDW-CV (test code = 11.9 % 12.0-15.5 L 788-0) PLT (test code = See_Comment [Automated 777-3) message] The sy stem which generated this result transmitted reference range : 166 - 358 10*3/ ?L. The reference r felix was not used to interpret this result as normal/abnormal . MPV (test code = 11.0 fL 9.5-12.9 81622-0) NRBC/100 WBC (test See_Comment [Automat ed code = 0190008355) message] The system which generated this result transmitted reference range : 0.0 - 10.0 /100 WBCs. The refer ence range was not u sed to interpret th is result as normal/abnormal . NRBC x10^3 (test code See_Comment [Auto mated = 6995372488) message] The s ystem which generated this result transmitted reference range : 10*3/?L. The reference range was not used to interpret this result as normal/abnormal . GRAN MAT (NEUT) % 68.9 % (test code = 770-8) IMM GRAN % (test code 0.50 % = 2053329216) LYMPH % (test code = 24.9 % 736-9) MONO % (test code = 4.5 % 5905-5) EOS % (test code = 0.8 % 713-8) BASO % (test code = 0.4 % 706-2) GRAN MAT x10^3(ANC) 5.01 10*3/uL 1.88-7.09 (test code = 2082341424) IMM GRAN x10^3 (test 0.04 10*3/uL 0.00-0.06 code = 5681445785) LYMPH x10^3 (test code 1.81 10*3/uL 1.32-3.29 = 731-0) MONO x10^3 (test code 0.33 10*3/uL 0.33-0.92 = 742-7) EOS x10^3 (test code = 0.06 10*3/uL 0.03-0.39 711-2) BASO x10^3 (test code 0.03 10*3/uL 0.01-0.07 = 704-7) Lab Interpretation Abnormal (test code = 33611-9) [facility]2022-11-04 00:50:24 Test Item Value Reference Range Interpretation Comments POCT GLU (test code = 7856632851) 452 mg/dL 70-110 HH Lab Interpretation (test code = Abnormal 19774-5) [facility] [id number] 22:41:10 Test Item Value Reference Interpretation Comments Range TROPONIN I (test 0.001 ng/mL See_Comment [Automated code = 7306844431) message] The system which generated this result [...] biotin. Lab Interpretation Normal (test code = 68572-6) [facility]2022-[facility]-30 22:30:04 Test Item Value Reference Range Interpretation Comments MAGNESIUM (test code = 6115490986) 1.5 mg/dL 1.7-2.4 L Lab Interpretation (test code = Abnormal 35763-2) [facility] MET[facility]OLIC PANEL (78244)2022-10-28 22:29:23 Test Item Value Reference Range Interpretation Comments NA (test code = 137 mmol/L 135-145 8327837919) K (test code = 4.2 mmol/L 3.5-5.0 9786893905) CL (test code = 101 mmol/L 98-108 9233127216) CO2 TOTAL (test code = 25 mmol/L 23-31 6957217490) AGAP (test code = 2-16 0242645503) BUN (test code = 14 mg/dL 7-23 6038122526) GLUCOSE (test code = 274 mg/dL 70-110 H 0967530994) CREATININE (test code = 0.65 mg/dL 0.50-1.04 4412629199) TOTAL BILI (test code = 0.3 mg/dL 0.1-1.9 4586912146) CALCIUM (test code = 9.5 mg/dL 8.6-10.6 1953844305) T PROTEIN (test code = 7.7 g/dL 6.3-8.2 1714140945) ALBUMIN (test code = 4.5 g/dL 3.5-5.0 4710784501) ALK PHOS (test code = 119 U/L 34-122 8866087946) ALTv (test code = 41 U/L 5-35 H 1742-6) AST(SGOT) (test code = 33 U/L 13-40 6522288133) eGFR (test code = mL/min/1.73m2 9156903057) RUSS (test code = RUSS) Association of [...] tests). Lab Interpretation Abnormal (test code = 00938-5) [facility] 22:29:23 Test Item Value Reference Range Interpretation Comments LIPASE (test code = 2370995305) 210 U/L 0-220 Lab Interpretation (test code = Normal 09186-9) [facility] [id number] 22:02:42 Test Item Value Reference Range Interpretation Comments WBC (test code = See_Comment [Automated 4690-2) message] The sy stem which generated this result transmitted reference range : 4.30 - 11.10 10*3/?L. The reference range was not used to interpret this result as normal/abnormal . RBC (test code = See_Comment [Automated 929-8) message] The sy stem which generated this [...] (test code = 37.4 fL 39.0-49.9 L 03261-0) RDW-CV (test code = 11.8 % 12.0-15.5 L 788-0) PLT (test code = See_Comment [Automated 777-3) message] The sy stem which generated this result transmitted reference range : 166 - 358 10*3/ ?L. The reference r felix was not used to interpret this result as normal/abnormal . MPV (test code = 10.4 fL 9.5-12.9 85370-7) NRBC/100 WBC (test See_Comment [Automat ed code = 3626879837) message] The system which generated this result transmitted reference range : 0.0 - 10.0 /100 WBCs. The refer ence range was not u sed to interpret th is result as normal/abnormal . NRBC x10^3 (test code See_Comment [Auto mated = 1571948465) message] The s ystem which generated this result transmitted reference range : 10*3/?L. The reference range was not used to interpret this result as normal/abnormal . GRAN MAT (NEUT) % 69.9 % (test code = 770-8) IMM GRAN % (test code 0.50 % = 2854843225) LYMPH % (test code = 23.8 % 736-9) MONO % (test code = 4.1 % 5905-5) EOS % (test code = 1.4 % 713-8) BASO % (test code = 0.3 % 706-2) GRAN MAT x10^3(ANC) 4.63 10*3/uL 1.88-7.09 (test code = 3680264798) IMM GRAN x10^3 (test 0.03 10*3/uL 0.00-0.06 code = 0332972531) LYMPH x10^3 (test code 1.57 10*3/uL 1.32-3.29 = 731-0) MONO x10^3 (test code 0.27 10*3/uL 0.33-0.92 L = 742-7) EOS x10^3 (test code = 0.09 10*3/uL 0.03-0.39 711-2) BASO x10^3 (test code 0.01-0.07 = 704-7) Lab Interpretation Abnormal (test code = 38714-2) [facility] GLUCOSE (AUTOMATED)2022-09-16 00:59:22 Test Item Value Reference Range Interpretation Comments POCT GLU (test code = 0126952084) 238 mg/dL 70-110 H Lab Interpretation (test code = Abnormal 48629-0) [facility] >30DA[facility] 00:56:00 Test Item Value Reference Range Interpretation Comments POCT Glu (age>30days) (test code = 238 mg/dL 70-110 3342) Lab Interpretation (test code = Normal 07062-5) [facility] [id number] 22:43:37 Test Item Value Reference Interpretation Comments Range TROPONIN I (test 0.003 ng/mL See_Comment [Automated code = 0630380201) message] The system which generated this result [...] biotin. Lab Interpretation Normal (test code = 52137-8) [facility] [id number] 22:35:37 Test Item Value Reference Range Interpretation Comments NA (test code = 137 mmol/L 135-145 3153467584) K (test code = 4.5 mmol/L 3.5-5 7823644711) CL (test code = 99 mmol/L 98-108 5999449428) CO2 TOTAL (test code = 23 mmol/L 23-31 6203242044) AGAP (test code = 2-16 0732818733) BUN (test code = 16 mg/dL 7-23 8601700362) GLUCOSE (test code = 405 mg/dL 70-110 H 4267679652) CREATININE (test code = 0.66 mg/dL 0.5-1.04 2006799828) TOTAL BILI (test code = 0.6 mg/dL 0.1-1.8 7643013989) CALCIUM (test code = 9.9 mg/dL 8.6-10.6 8960940878) T PROTEIN (test code = 8.8 g/dL 6.3-8.2 H 1542424338) ALBUMIN (test code = 4.9 g/dL 3.5-5 9119501939) ALK PHOS (test code = 164 U/L 34-122 H 8426505417) ALTv (test code = 88 U/L 5-35 H 1742-6) AST(SGOT) (test code = 51 U/L 13-40 H 9229728621) eGFR (test code = mL/min/1.73m2 5388914290) RUSS (test code = RUSS) Association of [...] tests). Lab Interpretation Abnormal (test code = 76291-0) [facility] Hospital[facility], [id number] 22:34:57 Test Item Value Reference Range Interpretation Comments LIPASE (test code = 3192941568) 159 U/L 0-220 Lab Interpretation (test code = Normal 21226-3) [facility] with [id number] 22:11:31 Test Item Value Reference Range Interpretation Comments WBC (test code = See_Comment [Automated 8890-2) message] The sy stem which generated this [...] (test code = 38.5 fL 39-49.9 L 31904-0) RDW-CV (test code = 12.0 % 12-15.5 788-0) PLT (test code = See_Comment L [Automated 777-3) message] The sy stem which generated this result transmitted reference range : 166 - 358 10*3/ ?L. The reference r felix was not used to interpret this result as normal/abnormal . MPV (test code = 10.7 fL 9.5-12.9 96795-4) NRBC/100 WBC (test See_Comment [Automat ed code = 4381059821) message] The system which generated this result transmitted reference range : 0.0 - 10.0 /100 WBCs. The refer ence range was not u sed to interpret th is result as normal/abnormal . NRBC x10^3 (test code See_Comment [Auto mated = 1393919334) message] The s ystem which generated this result transmitted reference range : 10*3/?L. The reference range was not used to interpret this result as normal/abnormal . GRAN MAT (NEUT) % 69.4 % (test code = 770-8) IMM GRAN % (test code 0.20 % = 0709232962) LYMPH % (test code = 22.6 % 736-9) MONO % (test code = 5.7 % 5905-5) EOS % (test code = 1.6 % 713-8) BASO % (test code = 0.5 % 706-2) GRAN MAT x10^3(ANC) 4.00 10*3/uL 1.88-7.09 (test code = 6543522723) IMM GRAN x10^3 (test 0-0.06 code = 8280643289) LYMPH x10^3 (test code 1.30 10*3/uL 1.32-3.29 L = 731-0) MONO x10^3 (test code 0.33 10*3/uL 0.33-0.92 = 742-7) EOS x10^3 (test code = 0.09 10*3/uL 0.03-0.39 711-2) BASO x10^3 (test code 0.03 10*3/uL 0.01-0.07 = 704-7) Lab Interpretation Abnormal (test code = 93481-0) [facility] GLUCOSE (AUTOMATED)2022-08-21 02:00:19 Test Item Value Reference Range Interpretation Comments POCT GLU (test code = 516 mg/dL 70-110 HH Notifi ed Provider 1437671308) Lab Interpretation (test Abnormal code = 89121-7) [facility] GLUCOSE (AUTOMATED)2022-05-11 22:58:38 Test Item Value Reference Range Interpretation Comments POCT GLU (test code = 4943246708) 318 mg/dL 70-110 H Lab Interpretation (test code = Abnormal 92089-1) [facility] GLUCOSE (AUTOMATED)2022-05-11 22:21:13 Test Item Value Reference Range Interpretation Comments POCT GLU (test code = 3308183559) 344 mg/dL 70-110 H Lab Interpretation (test code = Abnormal 81886-3) [facility]AL [id number] 21:44:37 Test Item Value Reference Range Interpretation Comments NT-proBNP (test code 137 pg/mL See_Comment H [Autom ated = 7134292403) message] The system which generated this result transmitted reference range : <=125. The reference range was not used to interpret this result as normal/abnormal . RUSS (test code = RUSS) Biotin has been reported to cause a negative bias, interpret results relative to patient's use of biotin. Lab Interpretation Abnormal (test code = 58627-2) [facility] ([id number])2022-05-11 21:33:55 Test Item Value Reference Range Interpretation Comments NA (test code = 136 mmol/L 135-145 8582720051) K (test code = 3.9 mmol/L 3.5-5.0 2591602272) CL (test code = 99 mmol/L 98-108 2589569698) CO2 TOTAL (test code = 28 mmol/L 23-31 7469719943) AGAP (test code = 2-16 4344367673) BUN (test code = 16 mg/dL 7-23 4000761726) GLUCOSE (test code = 367 mg/dL 70-110 H 4341433445) CREATININE (test code = 0.60 mg/dL 0.50-1.04 9223709475) TOTAL BILI (test code = 0.8 mg/dL 0.1-1.0 5211995838) CALCIUM (test code = 9.8 mg/dL 8.6-10.6 4791370072) T PROTEIN (test code = 7.9 g/dL 6.3-8.2 8684449204) ALBUMIN (test code = 4.6 g/dL 3.5-5.0 2388653288) ALK PHOS (test code = 130 U/L 34-122 H 4512815593) ALTv (test code = 28 U/L 5-35 1742-6) AST(SGOT) (test code = 36 U/L 13-40 4246439504) eGFR (test code = mL/min/1.73m2 9277344596) RUSS (test code = RUSS) Association of [...] tests). Lab Interpretation Abnormal (test code = 59456-8) [facility] 21:33:55 Test Item Value Reference Range Interpretation Comments LIPASE (test code = 9071425331) 173 U/L 0-220 Lab Interpretation (test code = Normal 95271-1) [facility] [id number] 21:24:34 Test Item Value Reference Range Interpretation Comments WBC (test code = See_Comment [Automated 4598-2) message] The sy stem which generated this result transmitted reference range : 4.30 - 11.10 10*3/?L. The reference range was not used to interpret this result as normal/abnormal . RBC (test code = See_Comment [Automated 599-8) message] The sy stem which generated this [...] RDW-SD (test code = 39.1 fL 39.0-49.9 75382-6) RDW-CV (test code = 12.4 % 12.0-15.5 788-0) PLT (test code = See_Comment [Automated 777-3) message] The sy stem which generated this result transmitted reference range : 166 - 358 10*3/ ?L. The reference r felix was not used to interpret this result as normal/abnormal . MPV (test code = 10.6 fL 9.5-12.9 47589-2) NRBC/100 WBC (test See_Comment [Automat ed code = 5941873246) message] The system which generated this result transmitted reference range : 0.0 - 10.0 /100 WBCs. The refer ence range was not u sed to interpret th is result as normal/abnormal . NRBC x10^3 (test code <0.01 See_Comment [Auto mated = 1280630095) message] The s ystem which generated this result transmitted reference range : 10*3/?L. The reference range was not used to interpret this result as normal/abnormal . GRAN MAT (NEUT) % 76.2 % (test code = 770-8) IMM GRAN % (test code 0.30 % = 1489777355) LYMPH % (test code = 16.7 % 736-9) MONO % (test code = 5.2 % 5905-5) EOS % (test code = 1.2 % 713-8) BASO % (test code = 0.4 % 706-2) GRAN MAT x10^3(ANC) 5.26 10*3/uL 1.88-7.09 (test code = 2839865610) IMM GRAN x10^3 (test <0.03 0.00-0.06 code = 4088104413) LYMPH x10^3 (test code 1.15 10*3/uL 1.32-3.29 L = 731-0) MONO x10^3 (test code 0.36 10*3/uL 0.33-0.92 = 742-7) EOS x10^3 (test code = 0.08 10*3/uL 0.03-0.39 711-2) BASO x10^3 (test code 0.03 10*3/uL 0.01-0.07 = 704-7) Lab Interpretation Abnormal (test code = 79518-3) [facility] 11:08:42 Test Item Value Reference Range Interpretation Comments POCT GLU (test code = 2953286686) 381 mg/dL 70-110 H Lab Interpretation (test code = Abnormal 87084-4) [facility] (16252)2022-04-04 10:16:12 Test Item Value Reference Range Interpretation Comments NA (test code = 131 mmol/L 135-145 L 4536585108) K (test code = 4.0 mmol/L 3.5-5.0 9256042967) CL (test code = 93 mmol/L 98-108 L 0649855247) CO2 TOTAL (test code = 23 mmol/L 23-31 4545113233) AGAP (test code = 2-16 7310246718) BUN (test code = 20 mg/dL 7-23 1879025976) GLUCOSE (test code = 566 mg/dL 70-110 HH 8675805573) CREATININE (test code = 0.76 mg/dL 0.50-1.04 3687502115) TOTAL BILI (test code = 0.9 mg/dL 0.1-1.6 0320507753) CALCIUM (test code = 9.5 mg/dL 8.6-10.6 8232961878) T PROTEIN (test code = 7.5 g/dL 6.3-8.2 7594122116) ALBUMIN (test code = 4.4 g/dL 3.5-5.0 3620077189) ALK PHOS (test code = 130 U/L 34-122 H 8357242194) ALTv (test code = 16 U/L 535 1742-6) AST(SGOT) (test code = 22 U/L 13-40 5170740169) eGFR (test code = mL/min/1.73m2 5151361750) RUSS (test code = RUSS) Association of [...] tests). Lab Interpretation Abnormal (test code = 75151-7) [facility] 09:55:58 Test Item Value Reference Range Interpretation Comments MAGNESIUM (test code = 1593389486) 1.7 mg/dL 1.7-2.4 Lab Interpretation (test code = Normal 50972-1) [facility] WITH [id number] 09:24:34 Test Item Value Reference Range Interpretation Comments WBC (test code = See_Comment [Automated 3890-2) message] The sy stem which generated this [...] (test code = 36.8 fL 39.0-49.9 L 18331-0) RDW-CV (test code = 12.2 % 12.0-15.5 788-0) PLT (test code = See_Comment [Automated 777-3) message] The sy stem which generated this result transmitted reference range : 166 - 358 10*3/ ?L. The reference r felix was not used to interpret this result as normal/abnormal . MPV (test code = 10.4 fL 9.5-12.9 69757-0) NRBC/100 WBC (test See_Comment [Automat ed code = 7714623000) message] The system which generated this result transmitted reference range : 0.0 - 10.0 /100 WBCs. The refer ence range was not u sed to interpret th is result as normal/abnormal . NRBC x10^3 (test code <0.01 See_Comment [Auto mated = 7082209037) message] The s ystem which generated this result transmitted reference range : 10*3/?L. The reference range was not used to interpret this result as normal/abnormal . GRAN MAT (NEUT) % 64.5 % (test code = 770-8) IMM GRAN % (test code 0.50 % = 1304801152) LYMPH % (test code = 26.4 % 736-9) MONO % (test code = 6.4 % 5905-5) EOS % (test code = 1.6 % 713-8) BASO % (test code = 0.6 % 706-2) GRAN MAT x10^3(ANC) 4.01 10*3/uL 1.88-7.09 (test code = 7532540434) IMM GRAN x10^3 (test 0.03 10*3/uL 0.00-0.06 code = 4588426057) LYMPH x10^3 (test code 1.64 10*3/uL 1.32-3.29 = 731-0) MONO x10^3 (test code 0.40 10*3/uL 0.33-0.92 = 742-7) EOS x10^3 (test code = 0.10 10*3/uL 0.03-0.39 711-2) BASO x10^3 (test code 0.04 10*3/uL 0.01-0.07 = 704-7) Lab Interpretation Abnormal (test code = 47482-2) [facility]-04 09:04:45 Test Item Value Reference Range Interpretation Comments POCT GLU (test code = 4225740454) 532 mg/dL 70-110 HH Lab Interpretation (test code = Abnormal 56191-1) [facility]SALICYLATE2022-01-08 16:39:21 Test Item Value Reference Range Interpretation Comments SALICYLATE (test code <10 mg/L = 9131120963) RUSS (test code = RUSS) Therapeutic Range: ? Analgesic and Antipyretic Use ? 20-100 mg/L ? ? Anti-Inflammatory Use ? 100-250 mg/L Toxic Range: ? Greater than 300 mg/L [facility]ACET[facility]INOPHEN2022-01-08 16:39:06 Test Item Value Reference Range Interpretation Comments ACETAMINOP (test code = <10.0 10.0-30.0 L 7640219522) RUSS (test code = RUSS) Toxic: Greater than 200 ug/mL @ 4 hour post ingestion or greater than 50 ug/mL @ 12 hour post ingestion Lab Interpretation (test Abnormal code = 12714-5) [facility]ETHANOL2022-[facility]-08 15:24:55 Test Item Value Reference Range Interpretation Comments ALCOHOL (test code = <10 mg/dL 1928343512) RUSS (test code = RUSS) <10 Bpnrtabg93-020 Toxic>100 Depression of RISK MANAGEMENT MANAGER>400 Fatalities Reported [facility] [id number] 15:20:39 Test Item Value Reference Interpretation Comments Range TROPONIN I (test 0.008 ng/mL See_Comment [Automated code = 6916370169) message] The system which generated this result [...] biotin. Lab Interpretation Normal (test code = 17561-2) [facility]AL [id number] 15:17:38 Test Item Value Reference Range Interpretation Comments NT-proBNP (test code 51 pg/mL See_Comment [Autom ated = 3543898118) message] The system which generated this result transmitted reference range : <=125. The reference range was not used to interpret this result as normal/abnormal . RUSS (test code = RUSS) Biotin has been reported to cause a negative bias, interpret results relative to patient's use of biotin. Lab Interpretation Normal (test code = 91876-2) [facility]COMP[facility]OL[facility] PANEL (51684)2021-12-06 15:09:16 Test Item Value Reference Range Interpretation Comments NA (test code = 135 mmol/L 135-145 3001615835) K (test code = 4.1 mmol/L 3.5-5.0 5322419061) CL (test code = 99 mmol/L 98-108 3466408191) CO2 TOTAL (test code = 28 mmol/L 23-31 4080608248) AGAP (test code = 2-16 2221448813) BUN (test code = 17 mg/dL 7-23 4276563808) GLUCOSE (test code = 250 mg/dL 70-110 H 4572143715) CREATININE (test code = 0.77 mg/dL 0.50-1.04 2475877057) TOTAL BILI (test code = 0.5 mg/dL 0.1-1.5 5342716100) CALCIUM (test code = 9.4 mg/dL 8.6-10.6 0423216588) T PROTEIN (test code = 8.3 g/dL 6.3-8.2 H 9229920971) ALBUMIN (test code = 4.6 g/dL 3.5-5.0 2108890979) ALK PHOS (test code = 182 U/L 34-122 H 8419236844) ALTv (test code = 145 U/L 5-35 H 1742-6) AST(SGOT) (test code = 115 U/L 13-40 H 1200841880) eGFR (test code = mL/min/1.73m2 5167088522) RUSS (test code = RUSS) Association of [...] tests). Lab Interpretation Abnormal (test code = 04437-2) [facility] HospitalACTIVATED PARTIAL THRMPLAS [id number] 15:08:56 Test Item Value Reference Range Interpretation Comments APTT Patient (test See_Comment [Automat ed code = 3173-2) message] The system which generated this result transmitted reference range : 23 - 38 Seconds . The reference range was not used to interpr et this result as normal/abnormal . RUSS (test code = RUSS) The [facility] patient population mean normal value for aPTT is 30 seconds. Lab Interpretation Normal (test code = 43610-7) [facility] HospitalPROTHROMBIN TIME / [id number] 15:06:55 Test Item Value Reference Range Interpretation [...] tions. Lab Interpretation (test Normal code = 11450-1) [facility]CBC WITH [id number] 14:52:54 Test Item Value Reference Range Interpretation Comments WBC (test code = See_Comment [Automated 5490-2) message] The sy stem which generated this result transmitted reference range : 4.30 - 11.10 10*3/?L. The reference range was not used to interpret this result as normal/abnormal . RBC (test code = See_Comment [Automated 999-8) message] The sy stem which generated this [...] RDW-SD (test code = 40.9 fL 39.0-49.9 04821-5) RDW-CV (test code = 12.5 % 12.0-15.5 788-0) PLT (test code = See_Comment L [Automated 777-3) message] The sy stem which generated this result transmitted reference range : 166 - 358 10*3/ ?L. The reference r felix was not used to interpret this result as normal/abnormal . MPV (test code = 10.3 fL 9.5-12.9 75878-5) NRBC/100 WBC (test See_Comment [Automat ed code = 9004146094) message] The system which generated this result transmitted reference range : 0.0 - 10.0 /100 WBCs. The refer ence range was not u sed to interpret th is result as normal/abnormal . NRBC x10^3 (test code <0.01 See_Comment [Auto mated = 9434341251) message] The s ystem which generated this result transmitted reference range : 10*3/?L. The reference range was not used to interpret this result as normal/abnormal . GRAN MAT (NEUT) % 70.2 % (test code = 770-8) IMM GRAN % (test code 0.20 % = 2150821226) LYMPH % (test code = 20.5 % 736-9) MONO % (test code = 6.9 % 5905-5) EOS % (test code = 1.7 % 713-8) BASO % (test code = 0.5 % 706-2) GRAN MAT x10^3(ANC) 4.08 10*3/uL 1.88-7.09 (test code = 3126595777) IMM GRAN x10^3 (test <0.03 0.00-0.06 code = 9726982094) LYMPH x10^3 (test code 1.19 10*3/uL 1.32-3.29 L = 731-0) MONO x10^3 (test code 0.40 10*3/uL 0.33-0.92 = 742-7) EOS x10^3 (test code = 0.10 10*3/uL 0.03-0.39 711-2) BASO x10^3 (test code 0.03 10*3/uL 0.01-0.07 = 704-7) Lab Interpretation Abnormal (test code = 18274-8) [facility] HospitalAC PAN[facility] 21 + LACTIC [id number] 14:45:11 Test Item Value Reference Range Interpretation Comments PH (test code = 7.32-7.42 1561849613) PCO2 KINDRA (test code = See_Comment [Auto mated 2176356036) message] The sy stem which generated this result transmitted reference range : 41 - 51 mmHg. The reference range was not used to interpret this result as normal/abnormal . PO2 KINDRA (test code = See_Comment [Autom ated 3820149001) message] The sy stem which generated this result transmitted reference range : 25 - 40 mmHg. The reference range was not used to interpret this result as normal/abnormal . HCO3 KINDRA (test code = See_Comment [Auto mated 2395937426) message] The sy stem which generated this result transmitted reference range : 24 - 28 mEq/L. The reference range was not used to interpret this result as normal/abnormal . AC VBE(BEAKER) (test mEq/L code = 0602973518) THB KINDRA (test code = 13.8 g/dL 12.0-16.0 0690333409) %O2HB KINDRA (test code = 59.6 % 52.0-63.0 6098383171) %COHB KINDRA (test code = 1.8 % 0.0-1.5 H 3444436505) %METHB KINDRA (test code = 0.3 % 0.4-1.5 L 8496283616) VOL%O2 KINDRA (test code = 11.5 % 6.0-12.0 2085944853) NA (test code = 137 mmol/L 135-145 0930920170) K+ (test code = 4.2 mmol/L 3.5-5.0 8687107184) AC CA IONZ (test code = 4.60 mg/dL 4.50-5.30 1731566308) GLUCOSE (test code = 248 mg/dL 70-110 H 9673235432) LACTIC ACID (test code 1.79 mmol/L 0.50-2.20 = 4227662346) Lab Interpretation Abnormal (test code = 09522-2) [facility] 07:16:20 Test Item Value Reference Range Interpretation Comments LIPASE (test code = 4966580747) 228 U/L 0-220 H Lab Interpretation (test code = Abnormal 24318-7) [facility]TR[facility] [id number] 05:59:12 Test Item Value Reference Interpretation Comments Range TROPONIN I (test 0.003 ng/mL See_Comment [Automated code = 5094753858) message] The system which generated this result [...] biotin. Lab Interpretation Normal (test code = 44109-8) [facility] (41313)2021-12-06 05:49:12 Test Item Value Reference Range Interpretation Comments NA (test code = 135 mmol/L 135-145 4133886001) K (test code = 4.4 mmol/L 3.5-5.0 5587776661) CL (test code = 101 mmol/L 98-108 8283492004) CO2 TOTAL (test code = 26 mmol/L 23-31 0000518530) AGAP (test code = 2-16 3337721686) BUN (test code = 15 mg/dL 7-23 0961578507) GLUCOSE (test code = 318 mg/dL 70-110 H 2639542207) CREATININE (test code = 0.70 mg/dL 0.50-1.04 2002175992) TOTAL BILI (test code = 0.5 mg/dL 0.1-1.3 1441389925) CALCIUM (test code = 9.3 mg/dL 8.6-10.6 9437352040) T PROTEIN (test code = 8.0 g/dL 6.3-8.2 6192304105) ALBUMIN (test code = 4.4 g/dL 3.5-5.0 4345138938) ALK PHOS (test code = 189 U/L 34-122 H 3220639059) ALTv (test code = 135 U/L 5-35 H 1742-6) AST(SGOT) (test code = 173 U/L 13-40 H 5643687161) eGFR (test code = mL/min/1.73m2 4236654435) RUSS (test code = RUSS) Association of [...] tests). Lab Interpretation Abnormal (test code = 48021-1) [facility] WITH [id number] 04:44:46 Test Item Value Reference Range Interpretation Comments WBC (test code = See_Comment [Automated message] 6690-2) The system [employer] generated this result transmitted ref erence range: 4.30 - 1 1.10 10*3/?L. The re ference range was not u sed to interpret this result as normal/abnor mal. RBC (test code = See_Comment [Automated message] 669-8) The system [employer] generated this result transmitted ref erence range: [...] RDW-SD (test code 39.8 fL 39.0-49.9 = 65243-8) RDW-CV (test code 12.3 % 12.0-15.5 = 788-0) PLT (test code = See_Comment [Automated message] 777-3) The system [employer] generated this result transmitted ref erence range: 166 - 35 8 10*3/?L. The re ference range was not u sed to interpret this result as normal/abnor mal. MPV (test code = 10.9 fL 9.5-12.9 14360-6) NRBC/100 WBC (test See_Comment [Automat ed message] code = 4431023505) The syste m which generated this result transmitted ref erence range: 0.0 - 10 .0 /100 WBCs. The refer ence range was not u sed to interpret this result as normal/abnor mal. NRBC x10^3 (test <0.01 See_Comment [Automated message] code = 4701425959) The syste m which generated this result transmitted ref erence range: 10*3/?L. The reference range was not used to interpr et this result as normal/abnormal . GRAN MAT (NEUT) % 64.7 % (test code = 770-8) IMM GRAN % (test 0.30 % code = 1019821925) LYMPH % (test code 25.5 % = 736-9) MONO % (test code 7.1 % = 5905-5) EOS % (test code = 1.9 % 713-8) BASO % (test code 0.5 % = 706-2) GRAN MAT 3.80 10*3/uL 1.88-7.09 x10^3(ANC) (test code = [id number]) IMM GRAN x10^3 <0.03 0.00-0.06 (test code = [id number]) LYMPH x10^3 (test 1.50 10*3/uL 1.32-3.29 code = 731-0) MONO x10^3 (test 0.42 10*3/uL 0.33-0.92 code = 742-7) EOS x10^3 (test 0.11 10*3/uL 0.03-0.39 code = 711-2) BASO x10^3 (test 0.03 10*3/uL 0.01-0.07 code = 704-7) [facility]"
[2023-09-13 08:37] LABS: Absolute Lymphocytes (CBC) 1.3 K/uL (0.7-4.9); Hematocrit 38.9 % (36.0-45.0); Lymphocytes % 25.4 % (15.3-44.8); MCV 89.1 fL (80-100); MPV 8.1 fL (7.6-11.3); Platelets 146 thou/uL (152-406); RBC Red Blood Cell Count 4.37 M/uL (3.86-4.86)
[2023-09-13 08:43] LABS: Protime INR 0.97
[2023-09-13 09:20] LABS: Albumin 3.8 g/dL (3.4-5.0); Bilirubin Direct 0.1 mg/dL (0-0.2); Bilirubin Indirect, Calculated 0.3 mg/dL (0.2-0.8); Bilirubin Total 0.4 mg/dL (0.2-1.0); Magnesium 1.7 mg/dL (1.6-2.4); Potassium 3.9 mEq/L (3.5-5.1); Protein, Total 7.8 g/dL (6.4-8.2)
--- NOTE | 2023-09-13 09:45 | RAD REPORT ---
EXAM DESCRIPTION: CT - Head Brain Wo Cont - 09/13/2023 9:02 am CLINICAL HISTORY: Dizziness;Headache COMPARISON: Head Brain Wo Cont dated 07/17/2023; Head Brain Wo Cont dated 04/27/2021 TECHNIQUE: Noncontrast head CT images were obtained without IV contrast. Multiplanar reformats were generated and reviewed. All CT scans are performed using dose optimization technique as appropriate and may include automated exposure control or mA/KV adjustment according to patient size. FINDINGS: No intracranial hemorrhage, mass, or edema. Midline structures are unremarkable. Normal ventricular caliber for age. Cardona-white matter differentiation is preserved, without evidence of acute infarct. No abnormal extra- axial fluid collections. Mastoid air cells and visualized portions of the paranasal sinuses are clear. No acute bony findings. IMPRESSION: No evidence of an acute intracranial process.
[2023-09-13] MEDS ORDERED: METOCLOPRAMIDE 10 MG/2mL INJ ONE (10:25)
[2023-09-13] MEDS ORDERED: DIPHENHYDRAMINE 50 MG/ML VIAL ONE (10:25)
[2023-09-13] MEDS ORDERED: dexAMETHasone 10 MG/ML VIAL ONE (10:25)
[2023-09-13] MEDS ORDERED: KETOROLAC 30 MG/ML INJ ONE (10:26)
[2023-09-13] MEDS ORDERED: NA CHLORIDE 0.9% 1,000 ML ONE (10:26)
--- NOTE | 2023-09-13 10:44 | ER ---
Nurse's Notes [facility] Name: Elaine Rowland Age: 53 yrs Sex: Female : 1970 Arrival Date: 09/13/2023 Time: 08:07 Bed 7 Private MD: Diagnosis: Headache;Hyperglycemia, unspecified Presentation: 09/13 08:24 Chief complaint: Patient states: 2 weeks of dizziness, head pain, nausea, no vision in ll1 R eye. Coronavirus screen: Vaccine status: Patient reports receiving the 2nd dose of the covid vaccine. Client denies travel out of the [place] in the last 14 days. headache, nausea, Client presents with at least one sign or symptom that may indicate coronavirus-19. Standard/surgical mask placed on the client. Ebola Screen: Patient denies travel to an Ebola-affected area in the 21 days before illness onset. Initial Sepsis Screen: Does the patient meet any 2 criteria? No. Patient's initial sepsis screen is negative. Does the patient have a suspected source of infection? No. Patient's initial sepsis screen is negative. Risk Assessment: Do you want to hurt yourself or someone else? Patient reports no desire to harm self or others. Onset of symptoms was August 30, 2023. 08:24 Method Of Arrival: Ambulatory 1 08:24 Acuity: SHAINA 3 ll1 PHYSICAL SCIENCE AIDE: 11:03 LMP N/A - , Not iw Historical: - Allergies: 08:23 NKDA; ll1 - PMHx: 08:23 abd hernia; acid reflux; Anxiety; cirrhosis of liver; COPD; Diabetes - NIDDM; ll1 Hyperlipidemia; Hypertensive disorder; - Immunization history:: Adult Immunizations up to date. - Social history:: Smoking status: Patient denies any tobacco usage or history of. Screenin:53 [facility] [place] ED Fall Risk Assessment (Adult) Score/Fall Risk Level 0 - 2 = Low Risk. Abuse iw screen: Denies threats or abuse. Denies injuries from another. Nutritional screening: No deficits noted. Tuberculosis screening: No symptoms or risk factors identified. Assessment: 08:52 General: Appears in no apparent distress. Behavior is calm, cooperative. Neuro: Level iw of Consciousness is awake, alert, obeys commands, Oriented to person, place, time, situation, Moves all extremities. Full function Reports dizziness. Cardiovascular: Patient's skin is warm and dry. Respiratory: Respiratory effort is even, unlabored, Respiratory pattern is regular, symmetrical. Derm: Skin is intact, is healthy with good turgor. Musculoskeletal: Range of motion: intact in all extremities. 10:10 Reassessment: Patient appears in no apparent distress at this time. Patient and/or iw family updated on plan of care and expected duration. Pain level reassessed. Patient is alert, oriented x 3, equal unlabored respirations, skin warm/dry/pink. 10:53 Reassessment: Patient appears in no apparent distress at this time. Patient and/or iw family updated on plan of care and expected duration. Pain level reassessed. Patient is alert, oriented x 3, equal unlabored respirations, skin warm/dry/pink. Vital Signs: 08:24 BP 166 / 83; Pulse 70; Resp 17; Temp 97.4; Pulse Ox 100% on R/A; Weight 52.16 kg; ll1 Height 5 ft. 2 in. ; 08:41 BP 128 / 85 Supine; Pulse 62; iw 08:45 BP 143 / 76 Sitting; Pulse 66; iw 08:52 BP 164 / 91 Standing; Pulse 72; iw 08:24 Body Mass Index 21.03 (52.16 kg, 157.48 cm) ll1 Acosta Coma Score: 10:43 Eye Response: spontaneous(4). Motor Response: obeys commands(6). Verbal Response: kb oriented(5). Total: 15. ED Course: 08:09 Patient arrived in ED. rg4 08:10 Mariposa Triana F[facility]-C [facility]. kb 08:10 Maria Luisa Trujillo MD is Attending Physician. kb 08:24 Samra Jean-Baptiste, RN is Primary Nurse. iw 08:24 Arm band placed on Patient placed in an exam room, on a stretcher. ll1 08:26 Triage completed. ll1 08:31 Inserted saline lock: 22 gauge in left forearm, using aseptic technique. Blood ds4 collected. 09:03 CT Head Brain wo Cont In Process Unspecified. EDMS 09:12 Patient has correct armband on for positive identification. iw 09:13 Provided Education on: . iw 10:53 No provider procedures requiring assistance completed. iw 11:02 IV discontinued, intact, bleeding controlled, No redness/swelling at site. Pressure iw dressing applied. Administered Medications: 10:28 Drug: NS 0.9% IV 1000 ml IV at 1000 ml once Route: IV; Rate: 1000 ml; Site: left iw antecubital; 11:00 Follow up: IV Status: Completed infusion iw : Drug: metoCLOPramide IVP 10 mg IVP once; over 1 to 2 minutes Route: IVP; Site: left iw antecubital; 11:00 Follow up: Response: No adverse reaction iw : Drug: diphenhydrAMINE IVP 12.5 mg IVP once Route: IVP; Site: left antecubital; iw 11: Follow up: Response: No adverse reaction Drug: Ketorolac IVP 15 mg IVP once Route: IVP; Site: left antecubital; iw 11: Follow up: Response: No adverse reaction iw Drug: Decadron - Dexamethasone IVP 10 mg IVP once Route: IVP; Site: left antecubital; iw 11:00 Follow up: Response: No adverse reaction iw Medication: 08:53 VIS not applicable for this client. iw Outcome: 10:44 Discharge ordered by . dominique 11:02 Discharged to home ambulatory, iw 11:02 Condition: good 11:02 Discharge instructions given to patient, Instructed on discharge instructions, follow up and referral plans. medication usage, Demonstrated understanding of instructions, follow-up care, medications, Prescriptions given X 1, 11:03 Patient left the ED. iw Signatures: Dispatcher [employer] EDMariposa Mccormick, MICROBIOLOGY PROFESSOR-C MICROBIOLOGY PROFESSOR-Samra Leon RN RN iw Anson Hanna ds4 Erika Moore4 Silvano Givens RN RN ll1
--- NOTE | 2023-09-13 10:44 | EDPHYS ---
Physician Documentation [facility] Name: Elaine Rowland Age: 53 yrs Sex: Female : 1970 Arrival Date: 09/13/2023 Time: 08:07 Bed 7 Private MD: ED Physician Maria Luisa Trujillo HPI: 09/13 08:27 This 53 yrs old Female presents to ER via Ambulatory with complaints of Dizziness. kb 08:27 The patient complains of pain to the forehead. The patient describes the headache as kb constant. Onset: The symptoms/episode began/occurred 2 week(s) ago. Associated signs and symptoms: Pertinent positives: dizziness, nausea. Severity of symptoms: At its worst the pain was moderate, in the emergency department the pain is unchanged. Headache History: The patient has had previous headaches and this one is more severe than previous episodes. The symptoms are alleviated by nothing. the symptoms are aggravated by movement. The patient has not experienced similar symptoms in the past. The patient has not recently seen a physician. Pt reports headache that has been going on for 2 weeks. States the pain is worse with movement of head. Also reports dizziness with movement of head that started a few days ago. Reports nausea. Denies vomiting. . 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 - Social history:: Smoking status: Patient denies any tobacco usage or history of. ROS: 08:19 Constitutional: Negative for fever, chills, and weight loss, kb 08:19 Abdomen/GI: Positive for nausea, 08:19 Neuro: Positive for dizziness, headache, 08:19 All other systems are negative, Exam: 08:19 Constitutional: This is a well developed, well nourished patient who is awake, alert, kb and in no acute distress. Head/Face: Normocephalic, atraumatic. Eyes: Pupils equal round and reactive to light, extra-ocular motions intact. Lids and lashes normal. Conjunctiva and sclera are non-icteric and not injected. Cornea within normal limits. Periorbital areas with no swelling, redness, or edema. ENT: Moist Mucous membranes Cardiovascular: Regular rate Respiratory: Respirations even and unlabored. No increased work of breathing. Talking in full sentences Skin: Warm, dry with normal turgor. Normal color. MS/ Extremity: Pulses equal, no cyanosis. Neurovascular intact. Full, normal range of motion. Neuro: Awake and alert, GCS 15, oriented to person, place, time, and situation. Moves all extremities. Normal gait. Vital Signs: 08:24 BP 166 / 83; Pulse 70; Resp 17; Temp 97.4; Pulse Ox 100% on R/A; Weight 52.16 kg; ll1 Height 5 ft. 2 in. ; 08:41 BP 128 / 85 Supine; Pulse 62; iw 08:45 BP 143 / 76 Sitting; Pulse 66; iw 08:52 BP 164 / 91 Standing; Pulse 72; iw 08:24 Body Mass Index 21.03 (52.16 kg, 157.48 cm) ll1 Acosta Coma Score: 10:43 Eye Response: spontaneous(4). Motor Response: obeys commands(6). Verbal Response: kb oriented(5). Total: 15. MDM: 08:10 Patient medically screened. kb 08:20 Data reviewed: vital signs, nurses notes. kb 10:43 Differential diagnosis: migraine, sinusitis, tension headache, ICH. Counseling: I had a kb detailed discussion with the patient and/or guardian regarding the historical points, exam findings, and any diagnostic results supporting the discharge/admit diagnosis, lab results, radiology results, the need for outpatient follow up, a family practitioner, to return to the emergency department if symptoms worsen or persist or if there are any questions or concerns that arise at home. Response to treatment: the patient's symptoms have resolved after treatment. 09/13 08:18 Order name: Basic Metabolic Panel; Complete Time: 09:30 kb 09/13 08:18 Order name: CBC with Diff; Complete Time: 08:49 kb 09/13 08:18 Order name: Hepatic Function; Complete Time: 09:30 kb 09/13 08:18 Order name: Magnesium; Complete Time: 09:30 kb 09/13 08:18 Order name: Protime (+inr); Complete Time: 08:49 kb 09/13 08:18 Order name: Ptt, Activated; Complete Time: 08:49 kb 09/13 08:18 Order name: CT Head Brain wo Cont; Complete Time: 09:59 kb 09/13 08:18 Order name: Cardiac monitoring; Complete Time: 10:25 kb 09/13 08:18 Order name: IV Saline Lock; Complete Time: 08:31 kb 09/13 08:18 Order name: Labs collected and sent; Complete Time: 08:31 kb 09/13 08:18 Order name: NPO; Complete Time: 08:51 kb 09/13 08:18 Order name: O2 Per Protocol; Complete Time: 08: kb 09/13 08:18 Order name: O2 Sat Monitoring; Complete Time: 08: kb 09/13 08:18 Order name: Orthostatics; Complete Time: 08:51 kb Administered Medications: 10:28 Drug: NS 0.9% IV 1000 ml IV at 1000 ml once Route: IV; Rate: 1000 ml; Site: left iw antecubital; 11:00 Follow up: IV Status: Completed infusion iw 10:28 Drug: metoCLOPramide IVP 10 mg IVP once; over 1 to 2 minutes Route: IVP; Site: left iw antecubital; 11:00 Follow up: Response: No adverse reaction iw 10:28 Drug: diphenhydrAMINE IVP 12.5 mg IVP once Route: IVP; Site: left antecubital; iw 11:00 Follow up: Response: No adverse reaction iw 10:28 Drug: Ketorolac IVP 15 mg IVP once Route: IVP; Site: left antecubital; iw 11:00 Follow up: Response: No adverse reaction iw 10:28 Drug: Decadron - Dexamethasone IVP 10 mg IVP once Route: IVP; Site: left antecubital; iw 11:00 Follow up: Response: No adverse reaction iw Disposition Summary: 09/13/23 10:44 Discharge Ordered Notes: Location: Home kb Condition: Stable kb Diagnosis - Headache kb - Hyperglycemia, unspecified kb Followup: kb - With: Private Physician - When: 2 - 3 days - Reason: Recheck today's complaints, Continuance of care, Re-evaluation by your physician Followup: kb - With: Emergency Department - When: As needed - Reason: Worsening of condition Discharge Instructions: - Discharge Summary Sheet kb - Hyperglycemia, [id number] kb - General Headache Without Cause, [id number] kb Forms: - Medication Reconciliation Form kb - Thank You Letter kb - Antibiotic Education kb - Prescription Opioid Use kb - Patient Portal Instructions kb - Leadership Thank You Letter dominique Prescriptions: - Metformin 500 mg Oral Tablet Sustained Release 24 hr - take 1 tablet ORAL route once daily with evening meal; 20 tablet; Refills: 0, kb Product Selection Permitted Signatures: Dispatcher [employer] Mariposa Wu, Samra Encinas RN RN iw Silvano Givens RN RN ll1
[2023-09-13 11:13] VITALS: TEMP 97.4; O2SAT 100
[2023-09-13 11:16] VITALS: BP 164/91
== END 2023-09-13 11:03 | disposition home or self-care (01) ==
LOC: ER 08:07
DX: R51.9 Headache, unspecified (principal); E11.65 Type 2 diabetes mellitus with hyperglycemia; I10 Essential (primary) hypertension
CPT/HCPCS: 96361; 85025; 80048; 36415; 83735; 85610; 80076; 85730; 70450; 96375; 96374; 99284; J2765; J1200; J1100; J7030

== ENCOUNTER 2023-10-13 09:39 | Emergency (ER) | payer OTHER ==
--- OUTSIDE RECORDS SUMMARY | 2023-10-13 09:50 | XMS REPORT | Continuity of Care Document ---
:1970 Author Organization [facility] t Address [address] [place] [address] [place] [id number] Care Team Providers Name Role Phone SANNA BALTAZARYECENIA Hamilton Primary Care Physician Unavailable MIREYA CENTENO Attending Clinician Unavailable HOLLY VILLANUEVA Attending Clinician Unavailable MARIELLA PADILLA Attending Clinician Unavailable ANDREZ GTZ Attending Clinician Unavailable Lab, [facility] Attending Clinician Unavailable Mireya Centeno MD Attending Clinician Doctor Unassigned, [place] Attending Clinician Unavailable CHARLETTE HOLLOWAY Attending Clinician Unavailable Charlette Holloway DO Attending Clinician JONATHAN BAEZ Attending Clinician Unavailable Jonathan Baez MD Attending Clinician JENNY BURCH Attending Clinician Unavailable Jenny Burch MD Attending Clinician CONNIE VALENCIA Attending Clinician Unavailable Connie Valencia MD Attending Clinician Jane KYLE Attending [...] Number Effective Date Expiration Date Jessica DIANA [id number] 2022 2023 HOSP DIST 00:00:00 00:00:00 [employer] MP CVS 9 [id number] 2023 SILVER 2: DEWEY HMO 00:00:00 [employer]S [employer]ERK [employer]INTE[employer]CE 94 ON ICF [id number] 2021 2022 00:00:00 00:00:00 [facility] [facility] [id number] 2015 CARE 00:00:00 [place] CO. I H [id number] 2015 C 00:00:00 Problems Condition Condition Condition Status Onset Resolution Last Treating Co mments Source Name Details Category Date Date Treatment Clinician Date Nausea and Nausea and Disease Active U nivers vomiting vomiting 2-23 ity of 00:00: 00 Medical Branch Bloating Bloating Disease Active Unive rs 2-23 ity of 00:00: Medical Branch Carpal Carpal Disease Active Univers tunnel tunnel 2-05 ity of syndrome syndrome 00:00: [place] of right of right 00 Medica l wrist wrist Branch S/P left S/P left Disease Active Unive rs knee knee 1-08 ity of arthroscop [place] Medical Branch Essential Essential Disease Active Uni vers hypertensi hypertensi 7- it y of on on 00:00: [place] 00 Medical Branch Type 2 Type 2 Disease Active Univers diabetes diabetes 7 ity of mellitus mellitus 00:00: [place] without without 00 Medical complicati complicati Br anch on on Tobacco Tobacco Disease Active Univers abuse abuse 7-30 ity of 00:00: [place] 00 [facility] Allergies, Adverse Reactions, Alerts Allergy Allergy Status Severity Reaction(s) Onset Inactive Treating Comm ents Source Name Type Date Date Clinician IBUPROFE DRUG Active Anxiety 2014-11 Univers N INGREDI 0-27 ity of 00:00: [place] 00 Medical Branch Ibuprofe Propensi Active Anxiety 2014-11 Pt has Unive rs n ty to 0 been ity of adverse 00:00: taking [place] reaction 00 advil at [facility] Branch without any issues Social History Social Habit Start Date Stop Date Quantity Comments Source History of tobacco Cigarette Smoker [facility] Exposure to 2023-01-11 2023-01-21 Not sure University SARS-CoV-2 (event) 00:00:00 10:29:00 [facility] Cigarettes smoked 2023-01-21 2023-01-21 Univers ity of current (pack per 00:00:00 00:00:00 [facility] ) - Reported Branch Tobacco use and 2023-01-21 2023-01-21 Smokeless Universit y of exposure 00:00:00 00:00:00 tobacco non-user [facility] Alcohol intake 2023-01-21 2023-01-21 0 /d University of 00:00:00 00:00:00 [facility] Tobacco Comment 2023-01-21 2023-01-21 Quit smoking Univers ity of 00:00:00 00:00:00 over one month [facility] Sex Ass[birth year] Universit y of 00:00:00 00:00:00 [facility] Smoking Status Start Date Stop Date Source Ex-smoker 2023-01-21 00:00:00 2023-01-21 00:00:00 Universi ty of [facility] Medications Ordered Filled Start Stop Current Ordering Indication Dosage Frequency Signature Comments Components Source Medication Medication Date Date Medication? Clinician (SIG) Name Name traMADOL Yes 50mg Take 50 mg Uni vers (ULTRAM) 50 2-23 by mouth ity of mg tablet 10:43: every 12 [place] (twelve) Medical hours as Branch needed for Pain unrelieved by non-narcot ic analgesics . CANAGLIFLOZ 2023-0 Yes 1000mg Take 1,000 Univers IN 2-23 mg by ity of (INVOKANA 10:43: mouth 2 [place] ORAL) 26 (two) Medical times Branch daily. traMADOL 2023-0 Yes 50mg Take 50 mg Uni vers (ULTRAM) 50 2-23 by mouth ity of mg tablet 10:43: every 12 [place] (twelve) Medical hours as Branch needed for Pain unrelieved by non-narcot ic analgesics . CANAGLIFLOZ 2023-0 Yes 1000mg Take 1,000 Univers IN 2-23 mg by ity of (INVOKANA 10:43: mouth 2 [place] ORAL) 26 (two) Medical times Branch daily. traMADOL 2023-0 Yes 50mg Take 50 mg Uni vers (ULTRAM) 50 2-23 by mouth ity of mg tablet 10:43: every 12 [place] 26 (twelve) Medical hours as Branch needed for Pain unrelieved by non-narcot ic analgesics . CANAGLIFLOZ 2023-0 Yes 1000mg Take 1,000 Univers IN 2-23 mg by ity of (INVOKANA 10:43: mouth 2 [place] ORAL) 26 (two) Medical times Branch daily. pantoprazol 2023-0 Yes [id number] 40mg Take 1 Univers e 40 mg EC 2-23 tablet by ity of tablet 00:00: mouth in [place] 00 the Medical morning Branch and 1 tablet in the evening. pantoprazol 2023-0 Yes [id number] 40mg Take 1 Univers e 40 mg EC 2-23 tablet by ity of tablet 00:00: mouth in [place] 00 the Medical morning Branch and 1 tablet in the evening. pantoprazol 2023-0 Yes [id number] 40mg Take 1 Univers e 40 mg EC 2-23 tablet by ity of tablet 00:00: mouth in [place] 00 the Medical morning Branch and 1 tablet in the evening. insulin 2022- No 10U 10 Units, Univ ers regular -01-04 Slow IV ity of human 03:30: 03:03 [facility], [place] (HUMULIN R) 00 :00 ONCE, 1 Medic al injection dose, On Branch 10 Units 01/03/23 at 2130, Routine
Indicatio n for insulin: Hyperglyce caleb iopamidol 2022- No [id number] 98mL 98 mL, Univers (ISOVUE 01-04 02-06 Intravenou ity o f 370-500 mL) 03:00: 03:00 s, ONCE, 1 [place] injection 00 :00 dose, On Medica l 98 mL 01/03/23 Branch at 2100, Routine NaCl 0.9% 2022- No 1000mL at 999 Uni vers (NS) bolus 01-04 02-06 mL/hr, ity of infusion 02:45: 03:56 [...] :00 dose, On Medical mg(2.5 mg Marleny [facility])/3 mL 12/10/22 at nebulizer 1745, PATRIZIA solution 3 mL levoFLOXaci 2022-0 Yes [id number] 500mg Take 1 Univers n 1-12 tablet by ity of (LEVAQUIN) 00:00: mouth [place] 500 mg 00 every 24 Medical tablet ( [facility]) hours. predniSONE 2022-0 Yes [id number] 60mg Take 3 U nivers 20 mg 1-12 tablets by ity of tablet 00:00: mouth [place] 00 every Medical morning. Branch albuterol 2022-0 Yes [id number] 2{puff} Inhale 2 Univers 90 1-12 Puffs ity of mcg/actuati 00:00: every 6 Sai as on inhaler 00 (six) Medical hours as Branch needed for Wheezing or Shortness of Breath. dextrometho 2022-0 Yes [id number] 10mL Take 10 mL Univers rphan-guaif 1-12 by mouth ity of enesin 00:00: every 6 [place] 10-100 mg/5 00 (six) Medical mL solution hours as Bran ch needed for Cough. levoFLOXaci 2022-0 Yes [id number] 500mg Take 1 Univers n 1-12 tablet by ity of (LEVAQUIN) 00:00: mouth [place] 500 mg 00 every 24 Medical tablet ( [place] ur) hours. predniSONE 2022-0 Yes [id number] 60mg Take 3 U nivers 20 mg 1-12 tablets by ity of tablet 00:00: mouth [place] 00 every Medical morning. Branch albuterol 2022-0 Yes [id number] 2{puff} Inhale 2 Univers 90 1-12 Puffs ity of mcg/actuati 00:00: every 6 [place] as on inhaler 00 (six) Medical hours as Branch needed for Wheezing or Shortness of Breath. dextrometho 3-0 Yes [id number] 10mL Take 10 mL Univers rphan-guaif 1-12 by mouth ity of enesin 00:00: every 6 [place] 10-100 mg/5 00 (six) Medical mL solution hours as Bran ch needed for Cough. levoFLOXaci 2022-0 Yes [id number] 500mg Take 1 Univers n 1-12 tablet by ity of (LEVAQUIN) 00:00: mouth [place] 500 mg 00 every 24 Medical tablet (twenty-fo Branch ur) hours. predniSONE 3-0 Yes [id number] 60mg Take 3 U nivers 20 mg 1-12 tablets by ity of tablet 00:00: mouth [place] 00 every Medical morning. Branch albuterol 2022-0 Yes [id number] 2{puff} Inhale 2 Univers 90 1-12 Puffs ity of mcg/actuati 00:00: every 6 [place] on inhaler 00 (six) Medical hours as Branch needed for Wheezing or Shortness of Breath. dextrometho 2023-0 Yes [id number] 10mL Take 10 mL Univers rphan-guaif 1-12 by mouth ity of enesin 00:00: every 6 [place] 10-100 mg/5 00 (six) Medical mL solution hours as Bran ch needed for Cough. levoFLOXaci 2022-0 Yes [id number] 500mg Take 1 Univers n 1-12 tablet by ity of (LEVAQUIN) 00:00: mouth [place] 500 mg 00 every 24 Medical tablet (twenty-fo Branch ur) hours. predniSONE 3-0 Yes [id number] 60mg Take 3 U nivers 20 mg 1-12 tablets by ity of tablet 00:00: mouth [place] 00 every Medical morning. Branch albuterol 2022-0 Yes [id number] 2{puff} Inhale 2 Univers 90 1-12 Puffs ity of mcg/actuati 00:00: every 6 [place] on inhaler 00 (six) Medical hours as Branch needed for Wheezing or Shortness of Breath. dextrometho 3-0 Yes [id number] 10mL Take 10 mL Univers rphan-guaif 1-12 by mouth ity of enesin 00:00: every 6 [place] 10-100 mg/5 00 (six) Medical mL solution hours as Bran ch needed for Cough. levoFLOXaci 2023-0 Yes [id number] 500mg Take 1 Univers n 1-12 tablet by ity of (LEVAQUIN) 00:00: mouth [place] 500 mg 00 every 24 Medical tablet (twenty-fo Branch ur) hours. predniSONE 3-0 Yes [id number] 60mg Take 3 U nivers 20 mg 1-12 tablets by ity of tablet 00:00: mouth [place] 00 every Medical morning. Branch albuterol 3-0 Yes [id number] 2{puff} Inhale 2 Univers 90 1-12 Puffs ity of mcg/actuati 00:00: every 6 [place] on inhaler 00 (six) Medical hours as Branch needed for Wheezing or Shortness of Breath. dextrometho 2022-0 Yes [id number] 10mL Take 10 mL Univers rphan-guaif 1-12 by mouth ity of enesin 00:00: every 6 [place] 10-100 mg/5 00 (six) Medical mL solution hours as Bran ch needed for Cough. levoFLOXaci 0 Yes [id number] 500mg Take 1 Univers n 1-12 tablet by ity of (LEVAQUIN) 00:00: mouth [place] 500 mg 00 every 24 Medical tablet (twenty-fo Branch ur) hours. predniSONE 0 Yes [id number] 60mg Take 3 U nivers 20 mg 1-12 tablets by ity of tablet 00:00: mouth [place] 00 every Medical morning. Branch albuterol Yes [id number] 2{puff} Inhale 2 Univers 90 1-12 Puffs ity of mcg/actuati 00:00: every 6 [place] on inhaler 00 (six) Medical hours as Branch needed for Wheezing or Shortness of Breath. dextrometho 0 Yes [id number] 10mL Take 10 mL Univers rphan-guaif 1-12 [...] Wed11/30/22 at 0700, PATRIZIA iopamidol 2022- No [id number] 70mL 70 mL, U nivers (ISOVUE 11-30 [...] 1000mL at 999 Uni vers (NS) bolus 11-30-02 mL/hr, ity of infusion 11:00: 11:00 1,000 mL, Sai as 1,000 mL 00 :00 IV Medical Infusion, Branch ONCE, 1 dose, On Wed11/30/22 at 0500, STAT glipiZIDE 2022-0 Yes [id number] 2.5mg Take 1 Univers XL 2.5 mg 1-02 tablet by ity o f 24 hr 00:00: mouth [place] tablet 00 daily with Medical breakfast. [place] ondansetron 0 Yes [id number] 4mg Take 1 Univers 4 mg 1-02 tablet by ity of disintegrat 00:00: mouth [place] ing tablet 00 every 8 Medica l (eight) Branch hours as needed for Nausea and Vomiting (N/V). metFORMIN 2022-0 Yes [id number] 1000mg Take 1 Univers 1,000 mg 1-02 tablet by ity of tablet 00:00: mouth in [place] the Medical morning Branch and 1 tablet in the evening. Take with meals. glipiZIDE 2022-0 Yes [id number] 2.5mg Take 1 Univers XL 2.5 mg 1-02 tablet by ity o f 24 hr 00:00: mouth [place] tablet 00 daily with Medical breakfast. [place] ondansetron 2022-0 Yes [id number] 4mg Take 1 Univers 4 mg 1-02 tablet by ity of disintegrat 00:00: mouth [place] ing tablet 00 every 8 Medica l (eight) Branch hours as needed for Nausea and Vomiting (N/V). metFORMIN 2022-0 Yes [id number] 1000mg Take 1 Univers 1,000 mg 1-02 tablet by ity of tablet 00:00: mouth in [place] 00 the Medical morning Branch and 1 tablet in the evening. Take with meals. glipiZIDE 2022-0 Yes [id number] 2.5mg Take 1 Univers XL 2.5 mg 1-02 tablet by ity o f 24 hr 00:00: mouth [place] tablet 00 daily with Medical breakfast. Branch ondansetron 2023-0 Yes [id number] 4mg Take 1 Univers 4 mg 1-02 tablet by ity of disintegrat 00:00: mouth [place] ing tablet 00 every 8 Medica l (eight) Branch hours as needed for Nausea and Vomiting (N/V). metFORMIN 2023-0 Yes [id number] 1000mg Take 1 Univers 1,000 mg 1-02 tablet by ity of tablet 00:00: mouth in [place] 00 the Medical morning Branch and 1 tablet in the evening. Take with meals. glipiZIDE 2023-0 Yes [id number] 2.5mg Take 1 Univers XL 2.5 mg 1-02 tablet by ity o f 24 hr 00:00: mouth [place] tablet 00 daily with Medical breakfast. Branch ondansetron 2023-0 Yes [id number] 4mg Take 1 Univers 4 mg 1-02 tablet by ity of disintegrat 00:00: mouth [place] ing tablet 00 every 8 Medica l (eight) Branch hours as needed for Nausea and Vomiting (N/V). metFORMIN 2023-0 Yes [id number] 1000mg Take 1 Univers 1,000 mg 1-02 tablet by ity of tablet 00:00: mouth in [place] 00 the Medical morning Branch and 1 tablet in the evening. Take with meals. glipiZIDE 2023-0 Yes [id number] 2.5mg Take 1 Univers XL 2.5 mg 1-02 tablet by ity o f 24 hr 00:00: mouth [place] tablet 00 daily with Medical breakfast. Branch ondansetron 3-0 Yes [id number] 4mg Take 1 Univers 4 mg 1-02 tablet by ity of disintegrat 00:00: mouth [place] ing tablet 00 every 8 Medica l (eight) Branch hours as needed for Nausea and Vomiting (N/V). metFORMIN 2023-0 Yes [id number] 1000mg Take 1 Univers 1,000 mg 1-02 tablet by ity of tablet 00:00: mouth in [place] 00 the Medical morning Branch and 1 tablet in the evening. Take with meals. glipiZIDE 2023-0 Yes [id number] 2.5mg Take 1 Univers XL 2.5 mg 1-02 tablet by ity o f 24 hr 00:00: mouth [place] tablet 00 daily with Medical breakfast. Branch ondansetron 2023-0 Yes [id number] 4mg Take 1 Univers 4 mg 1-02 tablet by ity of disintegrat 00:00: mouth [place] ing tablet 00 every 8 Medica l (eight) Branch hours as needed for Nausea and Vomiting (N/V). metFORMIN Yes [id number] 1000mg Take 1 Univers 1,000 mg 1-02 tablet by ity of tablet 00:00: mouth in [place] 00 the Medical morning Branch and 1 tablet in the evening. Take with meals. glipiZIDE Yes [id number] 2.5mg Take 1 Univers XL 2.5 mg 1-02 tablet by ity o f 24 hr 00:00: mouth [place] tablet 00 daily with Medical breakfast. Branch ondansetron Yes [id number] 4mg Take 1 Univers 4 mg 1-02 tablet by ity of disintegrat 00:00: mouth [place] ing tablet 00 every 8 Medica l (eight) Branch hours as needed for Nausea and Vomiting (N/V). metFORMIN Yes [id number] 1000mg Take 1 Univers 1,000 mg 1-02 tablet by ity of tablet 00:00: mouth in [place] 00 the Medical morning Branch and 1 tablet in the evening. Take with meals. acetaminoph 2022- No [id number] 1{tbl} Take 1 U nivers en-codeine 11-30-10 tablet by ity of 300-30 mg 00:00: 05:59 mouth [place] tablet 00 :00 every 4 Medical (four) Branch hours as needed for Pain (scale 1-3) for up to 7 days. Indication s: acute pain insulin 2021-11- No 10U 10 Units, Univ ers regular 01-05 Slow IV ity of human 02:00: 01:15 [place], [place] (HUMULIN R) 00 :00 ONCE, [...] Wed11/03/22 at 1900, STAT canaglifloz 2021-11- No [id number] 1{tbl} Take 1 Univers in-metformi 01-04 tablet by it y of n 00:00: 05:59 mouth in [place] (INVOKAMET) 00 :00 the Medical 150-1,000 morning Branch mg per and 1 tablet tablet in the evening. Do all this for 30 days. canaglifloz 2021-11- No [id number] 1{tbl} Take 1 Univers in-metformi 01-04 tablet by it y of n 00:00: 05:59 mouth in [place] (INVOKAMET) 00 :00 the Medical 150-1,000 morning Branch mg per and 1 tablet tablet in the evening. Do all this for 30 days. ciprofloxac 2021-11 250mg 250 mg, U nivers in HCl [...] Wed10/28/22 at 1800, Routine ciprofloxac 2021-11 Yes [id number] 500mg Take 1 Univers in HCl 500 1-30 tablet by ity of mg tablet 00:00: mouth [place] 00 the Medical morning Branch and 1 tablet in the evening. ondansetron 2021-11 Yes [id number] 4mg Take 1 Univers 4 mg 1-30 tablet by ity of disintegrat 00:00: mouth [place] ing tablet 00 every 8 Medica l (eight) Branch hours as needed for Nausea and Vomiting (N/V). ciprofloxac 2021-11 Yes [id number] 500mg Take 1 Univers in HCl 500 1-30 tablet by ity of mg tablet 00:00: mouth [place] 00 the Medical morning Branch and 1 tablet in the evening. ondansetron 2021-11 Yes [id number] 4mg Take 1 Univers 4 mg 1-30 tablet by ity of disintegrat 00:00: mouth [place] ing tablet 00 every 8 Medica l (eight) Branch hours as needed for Nausea and Vomiting (N/V). ciprofloxac 2021-11 Yes [id number] 500mg Take 1 Univers in HCl 500 1-30 tablet by ity of mg tablet 00:00: mouth [place] 00 the Medical morning Branch and 1 tablet in the evening. ciprofloxac 2021-11 Yes [id number] 500mg Take 1 Univers in HCl 500 1-30 tablet by ity of mg tablet 00:00: mouth [place] 00 the Medical morning Branch and 1 tablet in the evening. ciprofloxac 2021-11 Yes [id number] 500mg Take 1 Univers in HCl 500 1-30 tablet by ity of mg tablet 00:00: mouth [place] 00 the Medical morning Branch and 1 tablet in the evening. ciprofloxac 2021-11 Yes [id number] 500mg Take 1 Univers in HCl 500 1-30 tablet by ity of mg tablet 00:00: mouth [place] 00 the Medical morning Branch and 1 tablet in the evening. ciprofloxac 2021-11 Yes [id number] 500mg Take 1 Univers in HCl 500 1-30 tablet by ity of mg tablet 00:00: mouth [place] 00 the Medical morning Branch and 1 tablet in the evening. ciprofloxac 2021-11 Yes [id number] 500mg Take 1 Univers in HCl 500 1-30 tablet by ity of mg tablet 00:00: mouth [place] 00 the Medical morning Branch and 1 tablet in the evening. ciprofloxac 2021-11 Yes [id number] 500mg Take 1 Univers in HCl 500 1-30 tablet by ity of mg tablet 00:00: mouth [place] 00 the Medical morning Branch and 1 tablet in the evening. ondansetron 2021-11- No [id number] 4mg Take 1 Univers 4 mg 1-30 [...] :00 dose, On Medic al mg Marleny [place] 10/01/22 at 1745, PATRIZIA amoxicillin 2021-11- No [id number] 1{tbl} Take 1 Univers -clavulanat 12-01 tablet by it y of e [id number] 00:00: 05:59 mouth [place] mg per 00 :00 every 12 Medical tablet (twelve) Branch hours for 7 days. metFORMIN 2021-11 No 500mg 500 mg, Uni vers (GLUCOPHAGE 0-19 10-19 Oral, ity of ) tablet 01:45: 00:55 ONCE, 1 [place] 500 mg 00 :00 dose, On Medical [facility] Branch 09/15/22 at 2045, Routine ketorolac 2021-11 No 15mg 15 mg, Unive rs (TORADOL) 0-19 10-19 Slow IV ity of injection 01:30: 00:55 [place], [place] 15 mg 00 :00 ONCE, 1 Medical dose, On Branch [facility] 09/15/22 at 2030, PATRIZIA iopamidol 2021-11- No [id number] 65mL 65 mL, U nivers (ISOVUE 0-19 10-19 Intravenou ity o f 370-500 mL) 00:15: 00:15 s, ONCE, 1 [place] injection 00 :00 dose, On Medica l [address] [facility] 09/15/22 at 1915, Routine metFORMIN 2021-11- No [id number] 500mg Take 1 Univers 500 mg 0-18 -18 tablet by ity of tablet 00:00: 05:59 mouth in [place] 00 :00 the Medical morning Branch and 1 tablet in the evening. Do all this for 30 days. metFORMIN 2021-11- No [id number] 500mg Take 1 Univers 500 mg 0-18 11-18 tablet by ity of tablet 00:00: 05:59 mouth in [place] 00 :00 the Medical morning Branch and 1 tablet in the evening. Do all this for 30 days. insulin No 10U 10 Units, Univ ers regular [...] Marleny Branch 08/20/22 at 2100, PATRIZIA ketorolac No 15mg 15 mg, Unive rs (TORADOL) [...] 08/20/22 at 2100, PATRIZIA iopamidol 2021- No [id number] 55mL 55 mL, Univers (ISOVUE 07-13 08-15 Intravenou ity o f 370-500 mL) [...] On 07/13/22 at 1715, PATRIZIA ondansetron Yes [id number] 4mg Take 1 Univers 4 mg 8-15 tablet by ity of disintegrat 00:00: mouth [place] ing tablet 00 every 8 Medica l (eight) Branch hours as needed for Nausea and Vomiting (N/V). dicyclomine 2022-0 Yes [id number] 20mg Take 1 Univers 20 mg 8-15 tablet by ity of tablet 00:00: mouth 4 [place] 00 (four) Medical times Branch daily as needed for Abdominal pain. ondansetron 2022-0 Yes [id number] 4mg Take 1 Univers 4 mg 8-15 tablet by ity of disintegrat 00:00: mouth [place] ing tablet 00 every 8 Medica l (eight) Branch hours as needed for Nausea and Vomiting (N/V). dicyclomine 2022-0 Yes [id number] 20mg Take 1 Univers 20 mg 8-15 tablet by ity of tablet 00:00: mouth 4 [place] 00 (four) Medical times Branch daily as needed for Abdominal pain. ondansetron 2022-0 Yes [id number] 4mg Take 1 Univers 4 mg 8-15 tablet by ity of disintegrat 00:00: mouth [place] ing tablet 00 every 8 Medica l (eight) Branch hours as needed for Nausea and Vomiting (N/V). dicyclomine 2022-0 Yes [id number] 20mg Take 1 Univers 20 mg 8-15 tablet by ity of tablet 00:00: mouth 4 [place] 00 (four) Medical times Branch daily as needed for Abdominal pain. ondansetron 2022-0 Yes [id number] 4mg Take 1 Univers 4 mg 8-15 tablet by ity of disintegrat 00:00: mouth [place] ing tablet 00 every 8 Medica l (eight) Branch hours as needed for Nausea and Vomiting (N/V). dicyclomine 2022-0 Yes [id number] 20mg Take 1 Univers 20 mg 8-15 tablet by ity of tablet 00:00: mouth 4 [place] 00 (four) Medical times Branch daily as needed for Abdominal pain. ondansetron 2022-0 Yes [id number] 4mg Take 1 Univers 4 mg 8-15 tablet by ity of disintegrat 00:00: mouth [place] ing tablet 00 every 8 Medica l (eight) Branch hours as needed for Nausea and Vomiting (N/V). dicyclomine 2022-0 Yes [id number] 20mg Take 1 Univers 20 mg 8-15 tablet by ity of tablet 00:00: mouth 4 [place] (four) Medical times Branch daily as needed for Abdominal pain. ondansetron 2022-0 Yes [id number] 4mg Take 1 Univers 4 mg 8-15 tablet by ity of disintegrat 00:00: mouth [place] ing tablet 00 every 8 Medica l (eight) Branch hours as needed for Nausea and Vomiting (N/V). dicyclomine 2022-0 Yes [id number] 20mg Take 1 Univers 20 mg 8-15 tablet by ity of tablet 00:00: mouth 4 [place] (four) Medical times Branch daily as needed for Abdominal pain. ondansetron 2022-0 Yes [id number] 4mg Take 1 Univers 4 mg 8-15 tablet by ity of disintegrat 00:00: mouth [place] ing tablet 00 every 8 Medica l (eight) Branch hours as needed for Nausea and Vomiting (N/V). dicyclomine 2022-0 Yes [id number] 20mg Take 1 Univers 20 mg 8-15 tablet by ity of tablet 00:00: mouth (four) Medical times Branch daily as needed for Abdominal pain. ondansetron 2-0 Yes [id number] 4mg Take 1 Univers 4 mg 8-15 tablet by ity of disintegrat 00:00: mouth [place] ing tablet 00 every 8 Medica l (eight) Branch hours as needed for Nausea and Vomiting (N/V). dicyclomine 2022-0 Yes [id number] 20mg Take 1 Univers 20 mg 8-15 tablet by ity of tablet 00:00: mouth (four) Medical times Branch daily as needed for Abdominal pain. ondansetron 2022-0 Yes [id number] 4mg Take 1 Univers 4 mg 8-15 tablet by ity of disintegrat 00:00: mouth [place] ing tablet 00 every 8 Medica l (eight) Branch hours as needed for Nausea and Vomiting (N/V). dicyclomine 2022-0 Yes [id number] 20mg Take 1 Univers 20 mg 8-15 tablet by ity of tablet 00:00: mouth 4 [place] 00 (four) Medical times Branch daily as needed for Abdominal pain. ondansetron 2022-0 Yes [id number] 4mg Take 1 Univers 4 mg 8-15 tablet by ity of disintegrat 00:00: mouth [place] ing tablet 00 every 8 Medica l (eight) Branch hours as needed for Nausea and Vomiting (N/V). dicyclomine 2022-0 Yes [id number] 20mg Take 1 Univers 20 mg 8-15 tablet by ity of tablet 00:00: mouth 4 (four) Medical times Branch daily as needed for Abdominal pain. ondansetron 2022-0 Yes [id number] 4mg Take 1 Univers 4 mg 8-15 tablet by ity of disintegrat 00:00: mouth [place] ing tablet 00 every 8 Medica l (eight) Branch hours as needed for Nausea and Vomiting (N/V). dicyclomine 2022-0 Yes [id number] 20mg Take 1 Univers 20 mg 8-15 tablet by ity of tablet 00:00: mouth (four) Medical times Branch daily as needed for Abdominal pain. ondansetron 2021-0 Yes [id number] 4mg Take 1 Univers 4 mg 8-15 tablet by ity of disintegrat 00:00: mouth [place] ing tablet 00 every 8 Medica l (eight) Branch hours as needed for Nausea and Vomiting (N/V). dicyclomine 2021-0 Yes [id number] 20mg Take 1 Univers 20 mg 8-15 tablet by ity of tablet 00:00: mouth (four) Medical times Branch daily as needed for Abdominal pain. ondansetron 2-0 Yes [id number] 4mg Take 1 Univers 4 mg 8-15 tablet by ity of disintegrat 00:00: mouth [place] ing tablet 00 every 8 Medica l (eight) Branch hours as needed for Nausea and Vomiting (N/V). dicyclomine 2021-0 Yes [id number] 20mg Take 1 Univers 20 mg 8-15 [...] Units 05/11/22 at 1800, Routine NaCl 0.9% 2021-2021- No 1000mL at 999 Uni vers (NS) bolus 05-11 mL/hr, ity of infusion 22:00: 22:55 1,000 mL, Sai as 1,000 mL 00 :00 IV Medical Infusion, Branch ONCE, 1 dose, On 05/11/22 at 1700, PATRIZIA cefdinir 2021- No [id number] 300mg Take 1 U nivers 300 mg [...] ity of 1,000 mg in 11:15: 11:55 Piggyback, [place] NaCl 0.9% 00 :00 ONCE, 1 Medical (NS) 50 mL dose, On Branc h MINI-BAG 04/04/22 at 0615, Administer over 30 Minutes, 50 mL
R lianne for Anti-Infec tive: Documented Infection< br>Documen jesus Infection Site: Urine<br&g t;Duration of Therapy: Other (see Comments) levETIRAcet 2021- No 1000mg 1,000 mg, Univers am (KEPPRA) [...] No 10U 10 Units, Univ ers regular - 05-07 Subcutaneo ity o f human 10:30: 09:36 us, ONCE, [place] (HUMULIN R) 00 :00 1 dose, On Me dical injection 04/04/22 Bran ch 10 Units at 0530, Routine NaCl 0.9% 2021- No 1000mL at 999 Uni vers (NS) IV 04-04 05-07 mL/hr, ity of infusion 10:30: 11:55 [place],000 mL 00 :00 s, ONCE, 1 Medic al dose, On Branch 04/04/22 at 0530, PATRIZIA glipiZIDE 2021-0 Yes [id number] 2.5mg Take 1 Univers XL 2.5 mg 5-07 tablet by ity o f 24 hr 00:00: mouth [place] tablet 00 daily with Medical breakfast. Branch canaglifloz 2021-0 Yes [id number] 1{tbl} Take 1 Univers in-metformi 5-07 tablet by ity of n 00:00: mouth 2 [place] (INVOKAMET) 00 (two) Medical 150-1,000 times Branch mg per daily. tablet cefdinir 2021-0 Yes [id number] 300mg Take 1 Un shawn 300 mg 5-07 capsule by ity of capsule 00:00: mouth [place] 00 every 12 Medical (twelve) Branch hours. glipiZIDE 2021-0 Yes [id number] 2.5mg Take 1 Univers XL 2.5 mg 5-07 tablet by ity o f 24 hr 00:00: mouth [place] tablet 00 daily with Medical breakfast. Branch canaglifloz 2021-0 Yes [id number] 1{tbl} Take 1 Univers in-metformi 5-07 tablet by ity of n 00:00: mouth 2 [place] (INVOKAMET) 00 (two) Medical 150-1,000 times Branch mg per daily. tablet cefdinir 2-0 Yes [id number] 300mg Take 1 Un shawn 300 mg 5-07 capsule by ity of capsule 00:00: mouth [place] 00 every 12 Medical (twelve) Branch hours. glipiZIDE 2-0 Yes [id number] 2.5mg Take 1 Univers XL 2.5 mg 5-07 tablet by ity o f 24 hr 00:00: mouth [place] tablet 00 daily with Medical breakfast. Branch canaglifloz 2022-0 Yes [id number] 1{tbl} Take 1 Univers in-metformi 5-07 tablet by ity of n 00:00: mouth 2 [place] (INVOKAMET) 00 (two) Medical 150-1,000 times Branch mg per daily. tablet cefdinir 2022-0 Yes [id number] 300mg Take 1 Un shawn 300 mg 5-07 capsule by ity of capsule 00:00: mouth [place] 00 every 12 Medical (twelve) Branch hours. glipiZIDE 2022-0 Yes [id number] 2.5mg Take 1 Univers XL 2.5 mg 5-07 tablet by ity o f 24 hr 00:00: mouth [place] tablet 00 daily with Medical breakfast. Branch canaglifloz 2022-0 Yes [id number] 1{tbl} Take 1 Univers in-metformi 5-07 tablet by ity of n 00:00: mouth 2 [place] (INVOKAMET) 00 (two) Medical 150-1,000 times Branch mg per daily. tablet cefdinir 2022-0 Yes [id number] 300mg Take 1 Un shawn 300 mg 5-07 capsule by ity of capsule 00:00: mouth [place] 00 every 12 Medical (twelve) Branch hours. glipiZIDE 2022-0 Yes [id number] 2.5mg Take 1 Univers XL 2.5 mg 5-07 tablet by ity o f 24 hr 00:00: mouth [place] tablet 00 daily with Medical breakfast. Branch canaglifloz 2022-0 Yes [id number] 1{tbl} Take 1 Univers in-metformi 5-07 tablet by ity of n 00:00: mouth 2 [place] (INVOKAMET) 00 (two) Medical 150-1,000 times Branch mg per daily. tablet cefdinir 2022-0 Yes [id number] 300mg Take 1 Un shawn 300 mg 5-07 capsule by ity of capsule 00:00: mouth [place] 00 every 12 Medical (twelve) Branch hours. glipiZIDE 2022-0 Yes [id number] 2.5mg Take 1 Univers XL 2.5 mg 5-07 tablet by ity o f 24 hr 00:00: mouth [place] tablet 00 daily with Medical breakfast. Branch canaglifloz 2022-0 Yes [id number] 1{tbl} Take 1 Univers in-metformi 5-07 tablet by ity of n 00:00: mouth 2 [place] (INVOKAMET) 00 (two) Medical 150-1,000 times Branch mg per daily. tablet glipiZIDE 2021-0 Yes [id number] 2.5mg Take 1 Univers XL 2.5 mg 5-07 tablet by ity o f 24 hr 00:00: mouth [place] tablet 00 daily with Medical breakfast. Branch canaglifloz 2021- Yes [id number] 1{tbl} Take 1 Univers in-metformi 5-07 tablet by ity of n 00:00: mouth 2 [place] (INVOKAMET) 00 (two) Medical 150-1,000 times Branch mg per daily. tablet glipiZIDE 2021- Yes [id number] 2.5mg Take 1 Univers XL 2.5 mg 5-07 tablet by ity o f 24 hr 00:00: mouth [place] tablet 00 daily with Medical breakfast. Branch glipiZIDE 2022- No [id number] 2.5mg Take 1 Univers XL 2.5 mg 5-07 - tablet by ity of 24 hr 00:00: 00:00 mouth [place] tablet 00 :00 daily with Medical breakfast. Branch canaglifloz 2021- No [id number] 1{tbl} Take 1 Univers in-metformi 5-07 -06 tablet by it y of n 00:00: 00:00 mouth 2 [place] (INVOKAMET) 00 :00 (two) Medical 150-1,000 times Branch mg per daily. tablet cefdinir 2021- No [id number] 300mg Take 1 U nivers 300 mg 04-04- capsule by ity of capsule 00:00: 00:00 mouth [place] 00 :00 every 12 Medical (twelve) Branch hours. cefTRIAXone 2021-2021- No 1000mg 1,000 mg, Univers (ROCEPHIN) 12-06-08 IV ity of 1,000 mg in 17:45: 17:26 Piggyback, [place] NaCl 0.9% 00 :00 ONCE, 1 Medical (NS) 50 mL dose, On Bran h MINI-BAG 12/06/21 at 1145, Administer over 30 Minutes, 50 mL
R lianne for Anti-Infec tive: Documented Infection< br>Documen jesus Infection Site: Urine<br&g t;Duration of Therapy: Other (see Comments) iopamidol 2021- No [id number] 100mL 100 mL, Univers (ISOVUE 12-06-08 Intravenou ity o f 370-500 mL) 17:15: 15:50 s, ONCE, 1 [place] injection 00 :00 dose, On Medica l 100 mL 12/06/21 Branch at 1115, Routine cephALEXin Yes [id number] 500mg Take 1 Univers (KEFLEX) 1-08 capsule by ity o f 500 mg 00:00: mouth 3 [place] capsule 00 (three) Medical times Branch daily. cephALEXin Yes [id number] 500mg Take 1 Univers (KEFLEX) 1-08 capsule by ity o f 500 mg 00:00: mouth 3 [place] capsule 00 (three) Medical times Branch daily. cephALEXin Yes [id number] 500mg Take 1 Univers (KEFLEX) 1-08 capsule by ity o f 500 mg 00:00: mouth 3 [place] capsule 00 (three) Medical times Branch daily. cephALEXin 0 Yes [id number] 500mg Take 1 Univers (KEFLEX) 1-08 capsule by ity o f 500 mg 00:00: mouth 3 [place] capsule 00 (three) Medical times Branch daily. cephALEXin 0 Yes [id number] 500mg Take 1 Univers (KEFLEX) 1-08 capsule by ity o f 500 mg 00:00: mouth 3 [place] capsule 00 (three) Medical times Branch daily. cephALEXin 0 Yes [id number] 500mg Take 1 Univers (KEFLEX) 1-08 capsule by ity o f 500 mg 00:00: mouth 3 [place] capsule 00 (three) Medical times Branch daily. cephALEXin 2021- No [id number] 500mg Take 1 Univers (KEFLEX) 1-08 11-03 capsule by ity of 500 mg 00:00: 00:00 mouth 3 [place] capsule 00 :00 (three) Medical times Branch daily. glipiZIDE Yes [id number] 2.5mg Take 1 Univers XL 2.5 mg 6-15 tablet by ity o f 24 hr 00:00: mouth [place] tablet 00 daily with Medical breakfast. [place] glipiZIDE 2017- Yes [id number] 2.5mg Take 1 Univers XL 2.5 mg 6-15 tablet by ity o f 24 hr 00:00: mouth [place] tablet 00 daily with Medical breakfast. [place] glipiZIDE Yes [id number] 2.5mg Take 1 Univers XL 2.5 mg 6-15 tablet by ity o f 24 hr 00:00: mouth [place] tablet 00 daily with Medical breakfast. [place] glipiZIDE Yes [id number] 2.5mg Take 1 Univers XL 2.5 mg 6-15 tablet by ity o f 24 hr 00:00: mouth [place] tablet 00 daily with Medical breakfast. [place] glipiZIDE Yes [id number] 2.5mg Take 1 Univers XL 2.5 mg 6-15 tablet by ity o f 24 hr 00:00: mouth [place] tablet 00 daily with Medical breakfast. [place] glipiZIDE Yes [id number] 2.5mg Take 1 Univers XL 2.5 mg 6-15 tablet by ity o f 24 hr 00:00: mouth [place] tablet 00 daily with Medical breakfast. [place] glipiZIDE Yes [id number] 2.5mg Take 1 Univers XL 2.5 mg 6-15 tablet by ity o f 24 hr 00:00: mouth [place] tablet 00 daily with Medical breakfast. [place] glipiZIDE Yes [id number] 2.5mg Take 1 Univers XL 2.5 mg 6-15 tablet by ity o f 24 hr 00:00: mouth [place] tablet 00 daily with Medical breakfast. [place] glipiZIDE Yes [id number] 2.5mg Take 1 Univers XL 2.5 mg 6-15 tablet by ity o f 24 hr 00:00: mouth [place] tablet 00 daily with Medical breakfast. [place] glipiZIDE Yes [id number] 2.5mg Take 1 Univers XL 2.5 mg 6-15 tablet by ity o f 24 hr 00:00: mouth [place] tablet 00 daily with Medical breakfast. [place] glipiZIDE Yes [id number] 2.5mg Take 1 Univers XL 2.5 mg 6-15 tablet by ity o f 24 hr 00:00: mouth [place] tablet 00 daily with Medical breakfast. [place] glipiZIDE Yes [id number] 2.5mg Take 1 Univers XL 2.5 mg 6-15 tablet by ity o f 24 hr 00:00: mouth [place] tablet 00 daily with Medical breakfast. [place] glipiZIDE Yes [id number] 2.5mg Take 1 Univers XL 2.5 mg 6-15 tablet by ity o f 24 hr 00:00: mouth [place] tablet 00 daily with Medical breakfast. [place] glipiZIDE Yes [id number] 2.5mg Take 1 Univers XL 2.5 mg 6-15 tablet by ity o f 24 hr 00:00: mouth [place] tablet 00 daily with Medical breakfast. [place] glipiZIDE Yes [id number] 2.5mg Take 1 Univers XL 2.5 mg 6-15 tablet by ity o f 24 hr 00:00: mouth [place] tablet 00 daily with Medical breakfast. [place] glipiZIDE Yes [id number] 2.5mg Take 1 Univers XL 2.5 mg 6-15 tablet by ity o f 24 hr 00:00: mouth [place] tablet 00 daily with Medical breakfast. [place] glipiZIDE Yes [id number] 2.5mg Take 1 Univers XL 2.5 mg 6-15 tablet by ity o f 24 hr 00:00: mouth [place] tablet 00 daily with Medical breakfast. [place] INVOKAMET Yes [id number] TAKE ONE Univers 150-1,000 3-06 TABLET BY ity o f mg per 00:00: MOUTH [place] tablet 00 TWICE Medical DAILY Branch INVOKAMET Yes [id number] TAKE ONE Univers 150-1,000 3-06 TABLET BY ity o f mg per 00:00: MOUTH [place] tablet 00 TWICE Medical DAILY Branch INVOKAMET Yes [id number] TAKE ONE Univers 150-1,000 3-06 TABLET BY ity o f mg per 00:00: MOUTH [place] tablet 00 TWICE Medical DAILY Branch INVOKAMET Yes [id number] TAKE ONE Univers 150-1,000 3-06 TABLET BY ity o f mg per 00:00: MOUTH [place] tablet 00 TWICE Medical DAILY Branch INVOKAMET Yes [id number] TAKE ONE Univers 150-1,000 3-06 TABLET BY ity o f mg per 00:00: MOUTH [place] tablet 00 TWICE Medical DAILY Branch INVOKAMET 20180 Yes [id number] TAKE ONE Univers 150-1,000 3-06 TABLET BY ity o f mg per 00:00: MOUTH [place] tablet 00 TWICE Medical DAILY Branch INVOKAMET 20180 Yes [id number] TAKE ONE Univers 150-1,000 3-06 TABLET BY ity o f mg per 00:00: MOUTH [place] tablet 00 TWICE Medical DAILY Branch INVOKAMET 0 Yes [id number] TAKE ONE Univers 150-1,000 3-06 TABLET BY ity o f mg per 00:00: MOUTH [place] tablet 00 TWICE Medical DAILY Branch INVOKAMET Yes [id number] TAKE ONE Univers 150-1,000 3-06 TABLET BY ity o f mg per 00:00: MOUTH [place] tablet 00 TWICE Medical DAILY Branch INVOKAMET 0 2021- No [id number] TAKE ONE Univers 150-1,000 3-06 12-06 TABLET [...] 32 (two) Medical times Branch daily. CANAGLIFLOZ 2017- Yes 1000mg Take 1,000 Univers IN 1-09 mg by ity of (INVOKANA 14:27: mouth 2 [place] ORAL) 32 (two) Medical times Branch daily. CANAGLIFLOZ 2017- Yes 1000mg Take 1,000 Univers IN 1-09 [...] Medical times Branch daily. lovastatin 2016-11 Yes [id number] 40mg Take 1 U nivers 40 mg 0-26 tablet by ity of tablet 00:00: mouth at [place] 00 bedtime. Medical Branch lovastatin 2016-11 Yes [id number] 40mg Take 1 U nivers 40 mg 0-26 tablet by ity of tablet 00:00: mouth at [place] 00 bedtime. Medical Branch lovastatin 2016-11 Yes [id number] 40mg Take 1 U nivers 40 mg 0-26 tablet by ity of tablet 00:00: mouth at [place] 00 bedtime. Medical Branch lovastatin 2016-11 Yes [id number] 40mg Take 1 U nivers 40 mg 0-26 tablet by ity of tablet 00:00: mouth at [place] [address] bedtime. Medical Branch lovastatin 2016-11 Yes [id number] 40mg Take 1 U nivers 40 mg 0-26 tablet by ity of tablet 00:00: mouth at [place] [address] bedtime. Medical Branch lovastatin 2016-11 Yes [id number] 40mg Take 1 U nivers 40 mg 0-26 tablet by ity of tablet 00:00: mouth at [place] [address] bedtime. Medical Branch lovastatin 2016-11 Yes [id number] 40mg Take 1 U nivers 40 mg 0-26 tablet by ity of tablet 00:00: mouth at [place] [address] bedtime. Medical Branch lovastatin 2016-11 Yes [id number] 40mg Take 1 U nivers 40 mg 0-26 tablet by ity of tablet 00:00: mouth at [place] [address] bedtime. Medical Branch lovastatin 2016-11 Yes [id number] 40mg Take 1 U nivers 40 mg 0-26 tablet by ity of tablet 00:00: mouth at [place] [address] bedtime. Medical Branch lovastatin 2016-11 Yes [id number] 40mg Take 1 U nivers 40 mg 0-26 tablet by ity of tablet 00:00: mouth at [place] [address] bedtime. Medical Branch lovastatin 2016-11 Yes [id number] 40mg Take 1 U nivers 40 mg 0-26 tablet by ity of tablet 00:00: mouth at [place] [address] bedtime. Medical Branch lovastatin 2016-11 Yes [id number] 40mg Take 1 U nivers 40 mg 0-26 tablet by ity of tablet 00:00: mouth at [place] [address] bedtime. Medical Branch lovastatin 2016-11 Yes [id number] 40mg Take 1 U nivers 40 mg 0-26 tablet by ity of tablet 00:00: mouth at [place] [address] bedtime. Medical Branch lovastatin 2016-11 Yes [id number] 40mg Take 1 U nivers 40 mg 0-26 tablet by ity of tablet 00:00: mouth at [place] [address] bedtime. Medical Branch lovastatin 2016-11 Yes [id number] 40mg Take 1 U nivers 40 mg 0-26 tablet by ity of tablet 00:00: mouth at [place] [address] bedtime. Medical Branch lovastatin 2016-11 Yes [id number] 40mg Take 1 U nivers 40 mg 0-26 tablet by ity of tablet 00:00: mouth at [place] 00 bedtime. Medical Branch lovastatin 2017- Yes [id number] 40mg Take 1 U nivers 40 mg 0-26 tablet by ity of tablet 00:00: mouth at [place] 00 bedtime. Medical Branch traMADOL Yes 50mg Take 50 mg Uni vers (ULTRAM) 50 7-06 by mouth ity of mg tablet 10:55: every 12 [place] (twelve) Medical hours as Branch needed for Pain unrelieved by non-narcot ic analgesics . traMADOL Yes 50mg Take 50 mg Uni vers (ULTRAM) 50 7-06 by mouth ity of mg tablet 10:55: every 12 [place] (twelve) Medical hours as Branch needed for Pain unrelieved by non-narcot ic analgesics . traMADOL Yes 50mg Take 50 mg Uni vers (ULTRAM) 50 7-06 by mouth ity of mg tablet 10:55: every 12 [place] (twelve) Medical hours as Branch needed for Pain unrelieved by non-narcot ic analgesics . traMADOL Yes 50mg Take 50 mg Uni [...] of pressure [place] [facility] Diastolic blood 2023-01-21 16:42:00 85 mm[Hg] Unive rsity of pressure [place] [facility] Heart rate 2023-01-21 16:42:00 79 /min Universi ty of [place] [facility] Body temperature 2023-01-21 16:42:00 36.33 Anila Univ [...] /min University of Arterial blood by [place] [employer] Pulse oximetry Branch Systolic blood 2023-01-04 [...] /min University of Arterial blood by [place] [employer] Pulse oximetry Branch Body temperature 2023-01-04 01:40:00 37.39 Anila Univ ersity of [place] [facility] Body height 2023-01-04 01:40:00 157.5 cm Universi ty of [place] [facility] Body weight 2023-01-04 01:40:00 71.215 kg Universi ty of [place] [facility] BMI 2023-01-04 01:40:00 28.72 kg/m2 Universi ty of [place] [facility] Respiratory rate 2022-12-11 00:54:00 22 /min Univ ersity of [place] [facility] Oxygen saturation in 2022-12-11 00:54:00 100 /min University of Arterial blood by [employer]ron Pulse oximetry Branch Systolic blood 2022-12-11 00:30:00 144 mm[Hg] Univer sity of pressure [facility] Diastolic blood 2022-12-11 00:30:00 78 mm[Hg] Unive rsity of pressure [facility] Heart rate 2022-12-11 00:30:00 99 /min Universi ty of [facility] Body temperature 2022-12-10 22:24:00 37.11 Anila Univ ersity of [facility] Body height 2022-12-10 22:24:00 157.5 cm Universi ty of [place] [facility] Body weight 2022-12-10 22:24:00 71.215 kg Universi ty of [place] [facility] BMI 2022-12-10 22:24:00 28.72 kg/m2 Universi ty of [facility] Branch Systolic blood 2022-11-30 12:06:00 122 mm[Hg] Univer sity of pressure [facility] Diastolic blood 2022-11-30 12:06:00 77 mm[Hg] Unive rsity of [facility] Heart rate 2022-11-30 12:06:00 64 /min Universi ty of [facility] Respiratory rate 2022-11-30 12:06:00 13 /min Univ ersity of [facility] Oxygen saturation in 2022-11-30 12:06:00 95 /min [facility] Arterial blood by [facility] Pulse oximetry [place] Body temperature 2022-11-30 09:55:00 36.72 Anila [facility] ersity of [facility] Body height 2022-11-30 09:55:00 157.5 cm Universi ty of [place] [facility] [place] Body weight 2022-11-30 09:55:00 65.772 kg Universi ty of [facility] BMI 2022-11-30 09:55:00 26.52 kg/m2 Universi ty of [facility] Branch Systolic blood 2022-11-03 23:02:00 148 mm[Hg] Univer sity of pressure [place] [facility] Diastolic blood 2022-11-03 23:02:00 78 mm[Hg] Unive rsity of pressure [facility] Heart rate 2022-11-03 23:02:00 87 /min Universi ty of [facility] Body temperature 2022-11-03 23:02:00 37.44 Anila Univ ersity of [facility] Respiratory rate 2022-11-03 23:02:00 18 /min Univ ersity of [place] [facility] Body height 2022-11-03 23:02:00 157.5 cm Universi ty of [place] [facility] Body weight 2022-11-03 23:02:00 65.772 kg Universi ty of [place] [facility] BMI 2022-11-03 23:02:00 26.52 kg/m2 Universi ty [facility] [place] [facility] Oxygen saturation in 2022-11-03 23:02:00 100 /min University of Arterial blood by [place] [employer] Pulse oximetry Branch Systolic blood 2022-10-29 [...] 100 /min University of Arterial blood by [facility] theron Pulse oximetry Branch Body temperature 2022-10-28 21:44:00 37.5 Anila Univ ersity of [place] [facility] Body height 2022-10-28 21:44:00 157.5 cm Universi ty of [place] [facility] Body weight 2022-10-28 21:44:00 65.772 kg Universi ty of [place] [facility] BMI 2022-10-28 21:44:00 26.52 kg/m2 Universi [facility] [place] [facility] Systolic blood 2022-10-01 21:51:00 174 [...] 2022-10-01 21:51:00 65.772 kg Universi ty of [place] [facility] BMI 2022-10-01 21:51:00 26.52 kg/m2 Universi ty of [place] [facility] Oxygen saturation in 2022-10-01 21:51:00 97 /min University of Arterial blood by [facility] Pulse oximetry Branch Systolic blood 2022-09-16 01:15:00 154 mm[Hg] Univer sity of pressure [place] [facility] Diastolic blood 2022-09-16 01:15:00 84 mm[Hg] Unive rsity of pressure [place] [facility] Heart rate 2022-09-16 01:15:00 65 /min Universi ty of [place] [facility] Oxygen saturation in 2022-09-16 01:15:00 99 /min University of Arterial blood by [facility] Pulse oximetry Branch Body temperature 2022-09-15 22:45:00 [...] 02:30:00 83 mm[Hg] Unive rsity of pressure [place] [facility] Heart rate 2022-08-21 02:30:00 77 /min Universi ty of [place] [facility] Respiratory rate 2022-08-21 02:30:00 17 /min Univ ersity of [place] [facility] Oxygen saturation in 2022-08-21 02:30:00 96 /min University of Arterial blood by [facility] Pulse oximetry Branch Body temperature 2022-08-21 01:04:00 [...] 22:20:00 60 mm[Hg] Unive rsity of pressure [place] [facility] Heart rate 2022-07-13 22:20:00 77 /min Universi ty of [place] [facility] Respiratory rate 2022-07-13 22:20:00 18 /min Univ ersity of [place] [facility] Oxygen saturation in 2022-07-13 22:20:00 98 /min University of Arterial blood by [place] [employer] Pulse oximetry Branch Body temperature 2022-07-13 20:44:00 37.22 Anila Univ ersity of [place] [facility] Body height 2022-07-13 20:44:00 157.5 cm Universi ty of [place] [facility] Body weight 2022-07-13 20:44:00 72.258 kg Universi ty of [place] [facility] BMI 2022-07-13 20:44:00 29.14 kg/m2 Universi ty of [place] [facility] Systolic blood 2022-05-11 22:00:00 123 mm[Hg] Univer sity of pressure [place] [facility] Diastolic blood 2022-05-11 22:00:00 66 mm[Hg] Unive rsity of pressure [place] [facility] Heart rate 2022-05-11 22:00:00 76 /min Universi ty of [place] [facility] Respiratory rate 2022-05-11 22:00:00 17 /min Univ ersity of [place] [facility] Oxygen saturation in 2022-05-11 22:00:00 97 /min University of Arterial blood by [facility] theron Pulse oximetry Branch Body temperature 2022-05-11 [...] 95 /min University of Arterial blood by [facility] theron Pulse oximetry Branch Body temperature 2022-04-04 09:00:00 37.28 Anila Univ ersity of [place] [facility] Systolic blood 2021-12-06 17:00:00 134 mm[Hg] Univer sity of pressure [place] [facility] Diastolic blood 2021-12-06 17:00:00 77 mm[Hg] Unive rsity of pressure [place] [facility] Heart rate 2021-12-06 17:00:00 62 /min Universi ty of [place] [facility] Respiratory rate 2021-12-06 17:00:00 16 /min Univ ersity of [place] [facility] Oxygen saturation in 2021-12-06 17:00:00 98 /min University of Arterial blood by [facility] Pulse oximetry Branch Body temperature 2021-12-06 14:17:00 37.28 Anila Univ ersity of [place] [facility] Body weight 2021-12-06 14:17:00 65.772 kg Universi ty [facility] [place] [facility] BMI 2021-12-06 14:17:00 26.52 kg/m2 [facility]i ty [facility] [place] [facility] Systolic blood 2021-12-06 08:13:00 141 mm[Hg] Univer sity of pressure [place] [facility] Diastolic blood 2021-12-06 08:13:00 69 mm[Hg] Unive rsity of pressure [place] [facility] Oxygen saturation in 2021-12-06 08:13:00 98 /min University of Arterial blood by [facility] Pulse oximetry Branch Heart rate 2021-12-06 07:00:00 74 /min Universi ty of [place] [facility] Respiratory rate 2021-12-06 07:00:00 18 /min Univ ersity of [place] [facility] Body temperature 2021-12-06 03:56:00 36.61 Anila Univ ersity of [place] [facility] Body height 2021-12-06 03:56:00 157.5 cm [facility]i ty [facility] [place] [facility] Body weight 2021-12-06 03:56:00 65.772 kg [facility] [place] [facility] BMI 2021-12-06 03:56:00 26.52 kg/m2 [facility] [place] [facility] Procedures Procedure Date / Time Performing Clinician Source Performed ASSIGNMENT OF BENEFITS 2023-01-21 16:31:02 Doctor Unassigned, No [facility] Name [facility] POCT GLUCOSE (AUTOMATED) 2023-01-04 03:43:00 Charlette Holloway [facility] POCT GLUCOSE (AUTOMATED) 2023-01-04 03:03:00 Charlette Holloway [facility] CT ABDOMEN PELVIS W 2023-01-04 02:44:37 Charlette Holloway [facility] CONTRAST [facility] Branch LIPASE 2023-01-04 02:10:00 Charlette Holloway [facility] COMP. METABOLIC PANEL 2023-01-04 02:10:00 Charlette Holloway [facility] ([id number]) [facility] CBC WITH DIFF 2023-01-04 02:10:00 Charlette Holloway [facility] URINALYSIS 2023-01-04 02:10:00 Charlette Holloway [facility] CONSENT/REFUSAL FOR 2023-01-04 01:25:15 Doctor Unassigned, No Un [facility] DIAGNOSIS AND TREATMENT Name [facility] TROPONIN I 2022-12-10 23:09:00 Jonathan Baez [facility] COMP. METABOLIC PANEL 2022-12-10 23:09:00 Jonathan Baez [facility] ([id number]) [facility] CBC WITH DIFF 2022-12-10 23:09:00 Jonathan Baez [facility] PROTHROMBIN TIME / INR 2022-12-10 23:09:00 Jonathan Baez [facility] ACTIVATED PARTIAL 2022-12-10 23:09:00 Jonathan Baez [facility] THRMPLAS [facility] RAPID INFLUENZA A/B 2022-12-10 23:09:00 Jonathan Baez [facility] N-TERMINAL PRO-BNP 2022-12-10 23:09:00 Jonathan Baez [facility] COVID-19 (ID NOW RAPID 2022-12-10 23:09:00 [facility] XR CHEST 1 VW 2022-12-10 23:04:00 Jonathan Baez [facility] POCT GLUCOSE (AUTOMATED) 2022-11-30 12:09:00 [facility] 20[facility]-11-30 11:57:00 Jenny Burch [facility] CT ABDOMEN PELVIS W 2022-11-30 10:46:34 Jenny Burch [facility] CONTRAST [facility] EKG-12 LEAD 2022-11-30 10:04:36 Jenny Burch [facility] LIPASE 2022-11-30 09:57:00 Jenny Burch [facility] TROPONIN I 2022-11-30 09:57:00 Jenny Burch [facility] COMP. METABOLIC PANEL 2022-11-30 09:57:00 Jenny Burch [facility] ([id number]) [facility] CBC WITH DIFF 2022-11-30 09:57:00 Jenny Burch [facility] POCT GLUCOSE (AUTOMATED) 2022-11-30 09:51:00 Doctor Unassigned, No [facility] PO[facility]UCOSE (AUTOMATED) 2022-11-04 02:29:00 Connie Valencia [facility] TROPONIN I 2022-11-04 00:53:00 Connie Valencia [facility] BASIC METABOLIC PANEL 2022-11-04 00:53:00 Connie Valencia [facility] (NA, K, CL, CO2, Medical Branch GLUCOSE, BUN, CREATININE, CA) CBC WITH DIFF 2022-11-04 00:53:00 Connie Valencia [facility] URINALYSIS 2022-11-04 00:53:00 Connie Valencia [facility] POCT GLUCOSE (AUTOMATED) 2022-11-04 00:46:00 Connie Valencia [facility] NOTICE OF PRIVACY 2022-11-03 22:47:19 Doctor Unassigned, No [facility] CONSENT/REFUSAL FOR 2022-11-03 22:46:47 Doctor Unassigned, No Un [facility] DIAGNOSIS AND TREATMENT [facility] URINALYSIS 2022-10-28 23:37:00 Jane Kyle [facility] XR CHEST 1 VW 2022-10-28 23:01:06 Jane Kyle [facility] LIPASE 2022-10-28 21:52:00 Jane Kyle [facility] MAGNESIUM 2022-10-28 21:52:00 Jane Kyle [facility] TROPONIN I 2022-10-28 21:52:00 Jane Kyle [facility] COMP. METABOLIC PANEL 2022-10-28 21:52:00 Jane Kyle [facility] ([id number]) [facility] CBC WITH DIFF 2022-10-28 21:52:00 Jane Kyle [facility] RAPID STREP SCREEN FOR 2022-10-28 21:47:00 Jane Kyle [facility] GROUP A [facility] RAPID INFLUENZA A/B 2022-10-28 21:47:00 Jane Kyle [facility] CONSENT/REFUSAL FOR 2022-10-01 21:40:59 Doctor Unassigned, No Un [facility] DIAGNOSIS AND TREATMENT Name [facility] POCT GLUCOSE(AGE 2022-09-16 00:56:00 Jane Kyle [facility] >30DAYS) [facility] POCT GLUCOSE (AUTOMATED) 2022-09-16 00:54:00 Jane Kyle [facility] CT ABDOMEN PELVIS W 2022-09-15 23:22:40 Jane Kyle [facility] CONTRAST [facility] LIPASE 2022-09-15 21:53:00 Amadou Doty [facility] TROPONIN I 2022-09-15 21:53:00 Jane Kyle [facility] COMP. METABOLIC PANEL 2022-09-15 21:53:00 [facility] ([id number][facility] Medical Branch CBC WITH DIFF 2022-09-15 21:53:00 Amadou Doty [facility] URINALYSIS 2022-09-15 21:53:00 Amadou Doty [facility] POCT GLUCOSE (AUTOMATED) 2022-08-21 01:57:00 Jaylyn Dunlap [facility] BASIC METABOLIC PANEL 2022-08-21 01:15:00 Xiomara Hernandez [facility] (NA, K, CL, CO2, Medical Branch GLUCOSE, BUN, CREATININE, CA) CBC WITH DIFF 2022-08-21 01:15:00 Xiomara Hernandez [facility] CT ABDOMEN PELVIS W 2022-07-13 22:19:12 Argelia Carson [facility] CONTRAST [facility] LIPASE 2022-07-13 20:55:00 Charlette Holloway [facility] MAGNESIUM 2022-07-13 20:55:00 Charlette Holloway [facility] COMP. METABOLIC PANEL 2022-07-13 20:55:00 Charlette Holloway [facility] ([id number]) [facility] CBC WITH DIFF 2022-07-13 20:55:00 Charlette Holloway [facility] URINALYSIS 2022-07-13 20:55:00 Charlette Holloway [facility] POCT GLUCOSE (AUTOMATED) 2022-05-11 22:54:00 Jc Mirza [facility] POCT GLUCOSE (AUTOMATED) 2022-05-11 22:16:00 Jc Mirza [facility] XR CHEST 1 VW 2022-05-11 21:12:40 Jc Mirza [facility] LIPASE 2022-05-11 21:10:00 Jc Mirza [facility] COMP. METABOLIC PANEL 2022-05-11 21:10:00 Jc Mirza [facility] ([id number]) [facility] CBC WITH DIFF 2022-05-11 21:10:00 Jc Mirza [facility] URINALYSIS 2022-05-11 21:10:00 Jc Mirza [facility] N-TERMINAL PRO-BNP 2022-05-11 21:10:00 Jc Mirza [facility] COVID-19 (ID NOW RAPID 2022-05-11 21:10:00 Jc Mirza [facility] TESTING) [facility] POCT GLUCOSE (AUTOMATED) 2022-04-04 11:05:00 [facility] 2022-04-04 10:39:30 Minh Hartman [facility] URINE DRUG (IMMUNOASSAY) 2022-04-04 09:51:00 [facility] Medical [facility] SCREEN URINALYSIS 2022-04-04 09:51:00 Minh Hartman [facility] RAPID INFLUENZA A/B 2022-04-04 09:51:00 Minh Hartman [facility] COVID-19 (ID NOW RAPID 2022-04-04 09:51:00 Minh Hartman [facility] TESTING) [facility] MAGNESIUM 2022-04-04 09:17:00 Minh Hartman [facility] COMP. METABOLIC PANEL 2022-04-04 09:17:00 Minh Hartman [facility] ([id number]) [facility] CBC WITH DIFF 2022-04-04 09:17:00 Minh Hartman [facility] POCT GLUCOSE (AUTOMATED) 2022-04-04 09:01:00 [facility] OF [facility]IVACY 2022-04-04 08:54:31 Doctor Unassigned, No [facility] Name [facility] CONSENT/REFUSAL FOR 2022-04-04 08:54:09 Doctor Unassigned, No [facility] DIAGNOSIS AND TREATMENT Name [facility] XR CHEST 1 VW 2021-12-06 16:10:54 Jonathan Baez [facility] CT ABDOMEN PELVIS W 2021-12-06 16:03:48 Jonathan Baez [facility] CONTRAST [facility] CT HEAD WO CONTRAST 2021-12-06 16:03:29 Jonathan Baez [facility] URINALYSIS 2021-12-06 15:17:00 Jonathan Baez [facility] f [facility] URINE DRUG (IMMUNOASSAY) 2021-12-06 15:17:[address] [facility] SCREEN W/O REFLEX COVID-19 (ID NOW RAPID 2021-12-06 14:33:00 Jonathan Baez [facility] TESTING) [facility] AC PANEL 21 + LACTIC 2021-12-06 14:32:00 Jonathan Baez [facility] ACID [facility] PROTHROMBIN TIME / INR 2021-12-06 14:31:00 Jonathan Baez [facility] ACTIVATED PARTIAL 2021-12-06 14:31:00 Jonathan Baez [facility] THRMPLAS SUNIL [facility] N-TERMINAL PRO-BNP 2021-12-06 14:31:00 Jonathan Baez [facility] TROPONIN I 2021-12-06 14:31:00 Jonathan Baez [facility] COMP. METABOLIC PANEL 2021-12-06 14:31:00 Jonathan Baez [facility] ([id number]) [facility] SALICYLATE 2021-12-06 14:31:00 Jonathan Baez [facility] ETHANOL 2021-12-06 14:31:00 [facility] CBC WITH DIFF 2021-12-06 14:31:00 [facility] EKG-12 LEAD 2021-12-06 08:02:36 Minh Hartman [facility] LIPASE 2021-12-06 05:07:00 [facility] 2021-12-06 05:07:00 Minh Hartman [facility] COMP. METABOLIC PANEL 2021-12-06 05:07:00 Minh Hartman [facility] ([id number]) [facility] CBC WITH DIFF 2021-12-06 04:20:00 Minh Hartman [facility] Encounters Start End Encounter Admission Attending Care Care Encounter Source Date/Time Date/Time Type Type Clinicians Facility Department ID 2023-01-25 Outpatient HARDEEP PANDEY [facility] [id number] Univers 16:07:35 MIREYARolling [facility] 2023-10-06 2023-10-06 Outpatient SARAHY VILLANUEVA [id number] Sarahy 14:00:00 14:00:00 HOLLY Marquesybol sandra 2023-10-05 2023-10-05 Outpatient PRERENEJessica SARAHY GÓMEZ [id number] Sarahy 00:00:00 00:00:00 MARIELLA Marquesbaldomero flores 2023-06-28 2023-06-28 Outpatient PROVIDER, SARAHY GÓMEZ [id number] Sarahy 00:00:00 00:00:00 ANDREZ canseco 2023-04-22 2023-04-22 Outpatient Helen CENTENO [facility] [id number] Univers 11:00:00 11:00:00 MIREYA ity [facility] 2023-01-21 2023-01-21 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 [id number] Univers 13:15:00 13:30:00 Visit Mireya Centeno SPECIALTY [id number] it[place] [id number] Ar jordan FORREST 353 [facility] 2023-01-21 2023-01-21 Office Jacobo [facility] [id number] Univers 11:00:00 11:30:00 Visit [facility] SPECIALTY [id number] ity of CARE 4.2.7.2.686 [facility] CENTER AT [phone] Ar jordan FORREST 072 [facility] 2023-01-21 2023-01-21 Outpatient Helen C[facility]ENO [facility] [id number] Univers 11:00:00 11:00:00 MIREYA ity [facility] 2023-01-21 2023-01-21 Orders Doctor MAURICE [id number] Univers 00:00:00 00:00:00 Only Unassigned, DAWSON [id number] ity of [place] [facility] 4.2.7.2.686 Sai as [id number] [address] 2023-01-03 2023-01-03 Emergency X AMIE [facility] ERT [id number] Univers 19:52:00 21:57:00 CHARLETTE amaya [facility] 2023-01-032023-01-03 Emergency [facility] [id number] Univers 19:52:00 21:57:00 Charlette WALLACE [id number] ity [facility] 4.2.7.2.686 [facility] [id number] [address] 2022-12-10 2022-12-10 Emergency [facility] [id number] Univers 16:18:00 18:56:00 JONATHAN ity [facility] 2022-12-10 2022-12-10 Emergency [facility] [id number] Univers 16:18:00 18:56:00 Jonathan WALLACE [id number] i ty of [place] 4.2.7.2.686 [facility] [id number] [address] 2022-11-30 2022-11-30 Emergency Lyn BURCH [facility] ERT [id number] Univers 03:53:00 06:45:00 JENNY itUT [facility] 2022-11-30 2022-11-30 Emergency [facility] [id number] Univers 03:53:00 06:45:00 Jenny WALLACE [id number] ity [facility] 4.2.7.2.686 [facility] [id number] [address] 2022-11-03 2022-11-03 Emergency Lyn [facility] ERT [id number] Univers 17:03:00 20:37:00 CONNIE amaya [facility] 2022-11-03 2022-11-03 Emergency [facility] [id number] Univers 17:03:00 20:37:00 Connie WALLACE [id number] i ty of [place] 4.2.7.2.[address] [place] [id number] 2022-10-28 2022-10-28 Emergency X Jane KYLE [facility] ERT [id number] Univers 15:53:00 20:50:00 ity [facility] 2022-10-28 2022-10-28 Emergency Jenny Burch [facility] 1.2.840 .114 [id number] Univers 15:53:00 20:50:00 Sherwin Jane WALLACE [id number] ity [facility] 4.2.7.2.686 [facility] [id number] [address] 2022-10-01 2022-10-01 Emergency X RIDDLE, [facility] ERT [id number] Univers 16:52:00 17:11:00 CHRISTOPHER it y of [facility] 2022-10-01 2022-10-01 Emergency Ramsay, [facility] [id number] Univers 16:52:00 17:11:00 Christmarie WALLACE [id number] ity [facility] 4.2.7.[address] [place] [id number] 2022-09-15 2022-09-15 Emergency X Jane KYLE [facility] ERT [id number] Univers 16:35:00 20:25:00 ity [facility] 2022-09-15 2022-09-15 Emergency Sherwin Jane [facility] [id number] Univers 16:35:00 20:25:00 Lana WALLACE 350.1.13.10 i ty of [place] 4.2.7.2.[address] [place] [id number] 2022-08-20 2022-08-20 Emergency X RIDDLE, [facility] ERT [id number] Univers 20:04:00 21:53:00 CHRISTOPHER it y [facility] 2022-08-20 2022-08-20 Emergency Ramsay, [facility] [id number] Univers 20:04:00 21:53:00 Christramonitaer CHRISTELLETON 350.1.13.10 ity [facility] 4.2.7.2.[address] [place] [id number] 2022-07-13 2022-07-13 Emergency X CARSON, [facility] ERT [id number] Univers 15:46:00 18:03:00 ARGELIA itUT [facility] 2022-07-13 2022-07-13 Emergency [facility] 1.2.840.114 [id number] Univers 15:46:00 18:03:00 Argelia BOURGEOISJOANNE 350.1.13.10 i ty of [facility] 4.2.7.2.686 [facility] [id number] [address] 2022-05-11 2022-05-11 Emergency X [facility] ERT [id number] Univers 15:46:00 18:31:00 JC itester [facility] 2022-05-11 2022-05-11 Emergency [facility] [id number] Univers 15:46:00 18:31:00 Jc Helen RODRIGO 350.1.13.10 i ty of [place] 4.2.7.2.686 [facility] [id number] [address] 2022-04-04 2022-04-04 Emergency X [facility] ERT [id number] Univers 03:54:00 07:11:00 MAGCHAN [facility] 2022-04-04 2022-04-04 Emergency [facility] [id number] Univers 03:54:00 07:11:00 Minh WALLACE 350.1.13.10 ity of [place] 4.2.7.2.[address] [place] [id number] 2021-12-06 2021-12-06 Emergency X [facility] ERT [id number] Univers 08:20:00 11:48:00 JONATHAN [facility] 2021-12-06 2021-12-06 Emergency [facility] [id number] Univers 08:20:00 11:48:00 Jonathan BOURGEOISJOANNE 350.1.13.10 i ty of [facility] 4.2.7.2.686 [facility] [id number] [address] 2021-12-05 2021-12-06 Emergency X [facility] ERT [id number] Univers 22:30:00 02:18:00 MINH [facility] 2021-12-05 2021-12-06 Emergency [facility] [id number] Univers 22:30:00 02:18:00 Minh WALLACE 350.1.13.10 itTaz 4.2.7.2.686 [facility] [id number] [address] 2015-06-10 2015-06-10 Outpatient [facility] [id number] Univers 00:00:00 23:59:00 FLORINA amaya o f [facility] Results Test Description Test Time Test Comments Results Result Comments Source POCT GLUCOSE (AUTOMATED) 2023-01-04 03:45:41 Test Item Value Reference Range Interpretation Comme nts POCT GLU (test code = 0231868941) 324 mg/dL 70-110 H Notified Provider Lab Interpretation (test code = 25228-3) [facility]normal [facility]2023-01-04 03:09:17 Test Item Value Reference Range Interpretation Comments POCT GLU (test code = 6844364014) 464 mg/dL 70-110 HH Lab Interpretation (test code = Abnormal 79547-0) [facility] ([facility]OMATED)2022-11-30 12:11:43 Test Item Value Reference Range Interpretation Comments POCT GLU (test code = 8540246097) 223 mg/dL 70-110 H Lab Interpretation (test code = Abnormal 77065-5) [facility] [id number] 10:28:35 Test Item Value Reference Interpretation Comments Range TROPONIN I (test 0.001 ng/mL See_Comment [Automated code = 8058873765) message] The system which generated this result [...] biotin. Lab Interpretation Normal (test code = 48225-7) [facility]. METABOLIC PANEL (71600)2022-11-30 10:16:54 Test Item Value Reference Range Interpretation Comments NA (test code = 132 mmol/L 135-145 L 0172912741) K (test code = 3.9 mmol/L 3.5-5.0 6725998816) CL (test code = 98 mmol/L 98-108 8851351755) CO2 TOTAL (test code = 27 mmol/L 23-31 7240182344) AGAP (test code = 2-16 8409133689) BUN (test code = 14 mg/dL 7-23 3843407116) GLUCOSE (test code = 282 mg/dL 70-110 H 2979055363) CREATININE (test code = 0.69 mg/dL 0.50-1.04 3666164605) TOTAL BILI (test code = 0.5 mg/dL 0.1-1.8 4710005982) CALCIUM (test code = 8.7 mg/dL 8.6-10.6 9189413379) T PROTEIN (test code = 7.0 g/dL 6.3-8.2 1060829807) ALBUMIN (test code = 4.1 g/dL 3.5-5.0 9947690822) ALK PHOS (test code = 135 U/L 34-122 H 7090789060) ALTv (test code = 52 U/L 5-35 H 1742-6) AST(SGOT) (test code = 30 U/L 13-40 4915644449) eGFR (test code = mL/min/1.73m2 8141633770) RUSS (test code = RUSS) Association of [...] tests). Lab Interpretation Abnormal (test code = 16911-9) [facility] 10:16:34 Test Item Value Reference Range Interpretation Comments LIPASE (test code = 2909572640) 120 U/L 0-220 Lab Interpretation (test code = Normal 50071-6) [facility] WITH [id number] 10:08:14 Test Item Value Reference Range Interpretation Comments WBC (test code = See_Comment [Automated 7056-2) message] The sy stem which generated this result transmitted reference range : 4.30 - 11.10 10*3/?L. The reference range was not used to interpret this result as normal/abnormal . RBC (test code = See_Comment [Automated 879-8) message] The sy stem which generated this [...] (test code = 37.2 fL 39.0-49.9 L 97622-0) RDW-CV (test code = 11.8 % 12.0-15.5 L 788-0) PLT (test code = See_Comment L [Automated 777-3) message] The sy stem which generated this result transmitted reference range : 166 - 358 10*3/ ?L. The reference r felix was not used to interpret this result as normal/abnormal . MPV (test code = 10.2 fL 9.5-12.9 35143-8) NRBC/100 WBC (test See_Comment [Automat ed code = 3988103534) message] The system which generated this result transmitted reference range : 0.0 - 10.0 /100 WBCs. The refer ence range was not u sed to interpret th is result as normal/abnormal . NRBC x10^3 (test code See_Comment [Auto mated = 9073426773) message] The s ystem which generated this result transmitted reference range : 10*3/?L. The reference range was not used to interpret this result as normal/abnormal . GRAN MAT (NEUT) % 58.2 % (test code = 770-8) IMM GRAN % (test code 0.20 % = 8846601330) LYMPH % (test code = 30.8 % 736-9) MONO % (test code = 7.2 % 5905-5) EOS % (test code = 3.0 % 713-8) BASO % (test code = 0.6 % 706-2) GRAN MAT x10^3(ANC) 3.06 10*3/uL 1.88-7.09 (test code = 4723074354) IMM GRAN x10^3 (test 0.00-0.06 code = 8094766608) LYMPH x10^3 (test code 1.62 10*3/uL 1.32-3.29 = 731-0) MONO x10^3 (test code 0.38 10*3/uL 0.33-0.92 = 742-7) EOS x10^3 (test code = 0.16 10*3/uL 0.03-0.39 711-2) BASO x10^3 (test code 0.03 10*3/uL 0.01-0.07 = 704-7) Lab Interpretation Abnormal (test code = 09914-5) [facility] GLUCOSE (AUTOMATED)2022-11-30 09:54:04 Test Item Value Reference Range Interpretation Comments POCT GLU (test code = 7862198730) 298 mg/dL 70-110 H Lab Interpretation (test code = Abnormal 33519-1) [facility] GLUCOSE (AUTOMATED)2022-11-04 02:36:44 Test Item Value Reference Range Interpretation Comments POCT GLU (test code = 0885317578) 222 mg/dL 70-110 H Lab Interpretation (test code = Abnormal 30069-5) [facility] METABOLIC PANEL (NA, K, CL, CO2, GLUCOSE, BUN, CREATININE, CA)2022-11-04 01:52:55 Test Item Value Reference Range Interpretation Comments NA (test code = 136 mmol/L 135-145 3626415380) K (test code = 4.2 mmol/L 3.5-5.0 9026346526) CL (test code = 102 mmol/L 98-108 1783471783) CO2 TOTAL (test code = 24 mmol/L 23-31 5136678477) AGAP (test code = 2-16 7061272014) BUN (test code = 18 mg/dL 7-23 9769464897) GLUCOSE (test code = 478 mg/dL 70-110 HH 6743784999) CREATININE (test code = 0.71 mg/dL 0.50-1.04 8746476646) CALCIUM (test code = 9.6 mg/dL 8.6-10.6 6821956395) eGFR (test code = mL/min/1.73m2 5860082637) RUSS (test code = RUSS) Association of [...] tests). Lab Interpretation Abnormal (test code = 15024-7) [facility] [id number] 01:42:22 Test Item Value Reference Interpretation Comments Range TROPONIN I (test 0.001 ng/mL See_Comment [Automated code = 8243195117) message] The system which generated this result [...] biotin. Lab Interpretation Normal (test code = 05936-5) [facility] WITH [id number] 01:24:19 Test Item Value Reference Range Interpretation [...] (test code = 37.5 fL 39.0-49.9 L 98700-1) RDW-CV (test code = 11.9 % 12.0-15.5 L 788-0) PLT (test code = See_Comment [Automated 777-3) message] The sy stem which generated this result transmitted reference range : 166 - 358 10*3/ ?L. The reference r felix was not used to interpret this result as normal/abnormal . MPV (test code = 11.0 fL 9.5-12.9 56963-3) NRBC/100 WBC (test See_Comment [Automat ed code = 7521375080) message] The system which generated this result transmitted reference range : 0.0 - 10.0 /100 WBCs. The refer ence range was not u sed to interpret th is result as normal/abnormal . NRBC x10^3 (test code See_Comment [Auto mated = 1975991333) message] The s ystem which generated this result transmitted reference range : 10*3/?L. The reference range was not used to interpret this result as normal/abnormal . GRAN MAT (NEUT) % 68.9 % (test code = 770-8) IMM GRAN % (test code 0.50 % = 8291557210) LYMPH % (test code = 24.9 % 736-9) MONO % (test code = 4.5 % 5905-5) EOS % (test code = 0.8 % 713-8) BASO % (test code = 0.4 % 706-2) GRAN MAT x10^3(ANC) 5.01 10*3/uL 1.88-7.09 (test code = 4860907209) IMM GRAN x10^3 (test 0.04 10*3/uL 0.00-0.06 code = 6734835843) LYMPH x10^3 (test code 1.81 10*3/uL 1.32-3.29 = 731-0) MONO x10^3 (test code 0.33 10*3/uL 0.33-0.92 = 742-7) EOS x10^3 (test code = 0.06 10*3/uL 0.03-0.39 711-2) BASO x10^3 (test code 0.03 10*3/uL 0.01-0.07 = 704-7) Lab Interpretation Abnormal (test code = 50634-9) [facility]2022-11-04 00:50:24 Test Item Value Reference Range Interpretation Comments POCT GLU (test code = 8199991217) 452 mg/dL 70-110 HH Lab Interpretation (test code = Abnormal 43404-8) [facility] [id number] 22:41:10 Test Item Value Reference Interpretation Comments Range TROPONIN I (test 0.001 ng/mL See_Comment [Automated code = 1715241285) message] The system which generated this result [...] biotin. Lab Interpretation Normal (test code = 83266-0) [facility]2022-[facility]-30 22:30:04 Test Item Value Reference Range Interpretation Comments MAGNESIUM (test code = 4232817093) 1.5 mg/dL 1.7-2.4 L Lab Interpretation (test code = Abnormal 80529-3) [facility] MET[facility]OLIC PANEL (36013)2022-10-28 22:29:23 Test Item Value Reference Range Interpretation Comments NA (test code = 137 mmol/L 135-145 1794452151) K (test code = 4.2 mmol/L 3.5-5.0 1480601455) CL (test code = 101 mmol/L 98-108 8467819585) CO2 TOTAL (test code = 25 mmol/L 23-31 6943151583) AGAP (test code = 2-16 5711524398) BUN (test code = 14 mg/dL 7-23 3351459688) GLUCOSE (test code = 274 mg/dL 70-110 H 9880186287) CREATININE (test code = 0.65 mg/dL 0.50-1.04 5397733818) TOTAL BILI (test code = 0.3 mg/dL 0.1-1.3 8557310383) CALCIUM (test code = 9.5 mg/dL 8.6-10.6 5349415812) T PROTEIN (test code = 7.7 g/dL 6.3-8.2 2442620199) ALBUMIN (test code = 4.5 g/dL 3.5-5.0 8507682564) ALK PHOS (test code = 119 U/L 34-122 3235529700) ALTv (test code = 41 U/L 5-35 H 1742-6) AST(SGOT) (test code = 33 U/L 13-40 9803166279) eGFR (test code = mL/min/1.73m2 9816163005) RUSS (test code = RUSS) Association of [...] tests). Lab Interpretation Abnormal (test code = 82784-9) [facility] Test Item Value Reference Range Interpretation Comments LIPASE (test code = [id number]) 210 U/L 0-220 Lab Interpretation (test code = Normal 41027-4) [facility] [id number] 22:02:42 Test Item Value Reference Range Interpretation Comments WBC (test code = See_Comment [Automated 0813-2) message] The sy stem which generated this result transmitted reference range : 4.30 - 11.10 10*3/?L. The reference range was not used to interpret this result as normal/abnormal . RBC (test code = See_Comment [Automated 139-7) message] The sy stem which generated this [...] (test code = 37.4 fL 39.0-49.9 L 24322-9) RDW-CV (test code = 11.8 % 12.0-15.5 L 788-0) PLT (test code = See_Comment [Automated 777-3) message] The sy stem which generated this result transmitted reference range : 166 - 358 10*3/ ?L. The reference r felix was not used to interpret this result as normal/abnormal . MPV (test code = 10.4 fL 9.5-12.9 35053-8) NRBC/100 WBC (test See_Comment [Automat ed code = 2659684174) message] The system which generated this result transmitted reference range : 0.0 - 10.0 /100 WBCs. The refer ence range was not u sed to interpret th is result as normal/abnormal . NRBC x10^3 (test code See_Comment [Auto mated = 5005165669) message] The s ystem which generated this result transmitted reference range : 10*3/?L. The reference range was not used to interpret this result as normal/abnormal . GRAN MAT (NEUT) % 69.9 % (test code = 770-8) IMM GRAN % (test code 0.50 % = 0456423627) LYMPH % (test code = 23.8 % 736-9) MONO % (test code = 4.1 % 5905-5) EOS % (test code = 1.4 % 713-8) BASO % (test code = 0.3 % 706-2) GRAN MAT x10^3(ANC) 4.63 10*3/uL 1.88-7.09 (test code = 7919207254) IMM GRAN x10^3 (test 0.03 10*3/uL 0.00-0.06 code = 0429030808) LYMPH x10^3 (test code 1.57 10*3/uL 1.32-3.29 = 731-0) MONO x10^3 (test code 0.27 10*3/uL 0.33-0.92 L = 742-7) EOS x10^3 (test code = 0.09 10*3/uL 0.03-0.39 711-2) BASO x10^3 (test code 0.01-0.07 = 704-7) Lab Interpretation Abnormal (test code = 61901-3) [facility] GLUCOSE (AUTOMATED)2022-09-16 00:59:22 Test Item Value Reference Range Interpretation Comments POCT GLU (test code = 3141644802) 238 mg/dL 70-110 H Lab Interpretation (test code = Abnormal 42087-4) [facility] GLUCOSE(AGE >30DAYS)2022-09-16 00:56:00 Test Item Value Reference Range Interpretation Comments POCT Glu (age>30days) (test code = 238 mg/dL 70-110 3342) Lab Interpretation (test code = Normal 95063-8) [facility] [id number] 22:43:37 Test Item Value Reference Interpretation Comments Range TROPONIN I (test 0.003 ng/mL See_Comment [Automated code = 0876046878) message] The system which generated this result [...] biotin. Lab Interpretation Normal (test code = 40117-1) [facility] Center[facility] Metabolic [id number] 22:35:37 Test Item Value Reference Range Interpretation Comments NA (test code = 137 mmol/L 135-145 0250529624) K (test code = 4.5 mmol/L 3.5-5 1030440904) CL (test code = 99 mmol/L 98-108 1355390056) CO2 TOTAL (test code = 23 mmol/L 23-31 5690534452) AGAP (test code = 2-16 8892258580) BUN (test code = 16 mg/dL 7-23 4510923097) GLUCOSE (test code = 405 mg/dL 70-110 H 8328715607) CREATININE (test code = 0.66 mg/dL 0.5-1.04 2411911398) TOTAL BILI (test code = 0.6 mg/dL 0.1-1.0 9048825653) CALCIUM (test code = 9.9 mg/dL 8.6-10.6 2376002300) T PROTEIN (test code = 8.8 g/dL 6.3-8.2 H 2798379026) ALBUMIN (test code = 4.9 g/dL 3.5-5 8328799683) ALK PHOS (test code = 164 U/L 34-122 H 9874068128) ALTv (test code = 88 U/L 5-35 H 1742-6) AST(SGOT) (test code = 51 U/L 13-40 H 7385140633) eGFR (test code = mL/min/1.73m2 3848080513) RUSS (test code = RUSS) Association of [...] tests). Lab Interpretation Abnormal (test code = 08201-3) [facility] CenterLipase, [id number] 22:34:57 Test Item Value Reference Range Interpretation Comments LIPASE (test code = 1671477149) 159 U/L 0-220 Lab Interpretation (test code = Normal 86242-3) [facility] CenterCBC with [id number] 22:11:31 Test Item Value Reference Range Interpretation Comments WBC (test code = See_Comment [Automated 5290-2) message] The sy stem which generated this result transmitted reference range : 4.30 - 11.10 10*3/?L. The reference range was not used to interpret this result as normal/abnormal . RBC (test code = See_Comment [Automated 369-8) message] The sy stem which generated this [...] (test code = 38.5 fL 39-49.9 L 07113-9) RDW-CV (test code = 12.0 % 12-15.5 788-0) PLT (test code = See_Comment L [Automated 777-3) message] The sy stem which generated this result transmitted reference range : 166 - 358 10*3/ ?L. The reference r felix was not used to interpret this result as normal/abnormal . MPV (test code = 10.7 fL 9.5-12.9 12173-3) NRBC/100 WBC (test See_Comment [Automat ed code = 9649100066) message] The system which generated this result transmitted reference range : 0.0 - 10.0 /100 WBCs. The refer ence range was not u sed to interpret th is result as normal/abnormal . NRBC x10^3 (test code See_Comment [Auto mated = 6947447976) message] The s ystem which generated this result transmitted reference range : 10*3/?L. The reference range was not used to interpret this result as normal/abnormal . GRAN MAT (NEUT) % 69.4 % (test code = 770-8) IMM GRAN % (test code 0.20 % = 3263227269) LYMPH % (test code = 22.6 % 736-9) MONO % (test code = 5.7 % 5905-5) EOS % (test code = 1.6 % 713-8) BASO % (test code = 0.5 % 706-2) GRAN MAT x10^3(ANC) 4.00 10*3/uL 1.88-7.09 (test code = 9856141609) IMM GRAN x10^3 (test 0-0.06 code = 7648361465) LYMPH x10^3 (test code 1.30 10*3/uL 1.32-3.29 L = 731-0) MONO x10^3 (test code 0.33 10*3/uL 0.33-0.92 = 742-7) EOS x10^3 (test code = 0.09 10*3/uL 0.03-0.39 711-2) BASO x10^3 (test code 0.03 10*3/uL 0.01-0.07 = 704-7) Lab Interpretation Abnormal (test code = 12021-8) [facility] GLUCOSE (AUTOMATED)2022-08-21 02:00:19 Test Item Value Reference Range Interpretation Comments POCT GLU (test code = 516 mg/dL 70-110 HH Notifi ed Provider 8894798617) Lab Interpretation (test Abnormal code = 04991-2) [facility] GLUCOSE (AUTOMATED)2022-05-11 22:58:38 Test Item Value Reference Range Interpretation Comments POCT GLU (test code = 5436949765) 318 mg/dL 70-110 H Lab Interpretation (test code = Abnormal 11300-1) [facility] GLUCOSE (AUTOMATED)2022-05-11 22:21:13 Test Item Value Reference Range Interpretation Comments POCT GLU (test code = 0565829420) 344 mg/dL 70-110 H Lab Interpretation (test code = Abnormal 45141-7) [facility] CenterN-TERMINAL [id number] 21:44:37 Test Item Value Reference Range Interpretation Comments NT-proBNP (test code 137 pg/mL See_Comment H [Autom ated = 4069477330) message] The system which generated this result transmitted reference range : <=125. The reference range was not used to interpret this result as normal/abnormal . RUSS (test code = RUSS) Biotin has been reported to cause a negative bias, interpret results relative to patient's use of biotin. Lab Interpretation Abnormal (test code = 34996-6) [facility]. METABOLIC PANEL (93961)2022-05-11 21:33:55 Test Item Value Reference Range Interpretation Comments NA (test code = 136 mmol/L 135-145 2859529932) K (test code = 3.9 mmol/L 3.5-5.0 8910166623) CL (test code = 99 mmol/L 98-108 8899224757) CO2 TOTAL (test code = 28 mmol/L 23-31 5920025842) AGAP (test code = 2-16 6450632273) BUN (test code = 16 mg/dL 7-23 9519121167) GLUCOSE (test code = 367 mg/dL 70-110 H 5506651625) CREATININE (test code = 0.60 mg/dL 0.50-1.04 7216912755) TOTAL BILI (test code = 0.8 mg/dL 0.1-1.3 4299435558) CALCIUM (test code = 9.8 mg/dL 8.6-10.6 6488223544) T PROTEIN (test code = 7.9 g/dL 6.3-8.2 2594861614) ALBUMIN (test code = 4.6 g/dL 3.5-5.0 0363507550) ALK PHOS (test code = 130 U/L 34-122 H 0596187976) ALTv (test code = 28 U/L 5-35 1742-6) AST(SGOT) (test code = 36 U/L 13-40 1327168454) eGFR (test code = mL/min/1.73m2 2093303871) RUSS (test code = RUSS) Association of [...] tests). Lab Interpretation Abnormal (test code = 44249-1) [facility] CenterLIPASE2022-[facility] 21:33:55 Test Item Value Reference Range Interpretation Comments LIPASE (test code = 5041323375) 173 U/L 0-220 Lab Interpretation (test code = Normal 72066-2) [facility] WITH [id number] 21:24:34 Test Item Value Reference Range Interpretation [...] RDW-SD (test code = 39.1 fL 39.0-49.9 85194-4) RDW-CV (test code = 12.4 % 12.0-15.5 788-0) PLT (test code = See_Comment [Automated 777-3) message] The sy stem which generated this result transmitted reference range : 166 - 358 10*3/ ?L. The reference r felix was not used to interpret this result as normal/abnormal . MPV (test code = 10.6 fL 9.5-12.9 79861-3) NRBC/100 WBC (test See_Comment [Automat ed code = 5455555104) message] The system which generated this result transmitted reference range : 0.0 - 10.0 /100 WBCs. The refer ence range was not u sed to interpret th is result as normal/abnormal . NRBC x10^3 (test code <0.01 See_Comment [Auto mated = 0712948538) message] The s ystem which generated this result transmitted reference range : 10*3/?L. The reference range was not used to interpret this result as normal/abnormal . GRAN MAT (NEUT) % 76.2 % (test code = 770-8) IMM GRAN % (test code 0.30 % = 9074584770) LYMPH % (test code = 16.7 % 736-9) MONO % (test code = 5.2 % 5905-5) EOS % (test code = 1.2 % 713-8) BASO % (test code = 0.4 % 706-2) GRAN MAT x10^3(ANC) 5.26 10*3/uL 1.88-7.09 (test code = 3602085195) IMM GRAN x10^3 (test <0.03 0.00-0.06 code = 3586827727) LYMPH x10^3 (test code 1.15 10*3/uL 1.32-3.29 L = 731-0) MONO x10^3 (test code 0.36 10*3/uL 0.33-0.92 = 742-7) EOS x10^3 (test code = 0.08 10*3/uL 0.03-0.39 711-2) BASO x10^3 (test code 0.03 10*3/uL 0.01-0.07 = 704-7) Lab Interpretation Abnormal (test code = 21942-8) [facility] CenterPO[facility]2022-04-04 11:08:42 Test Item Value Reference Range Interpretation Comments POCT GLU (test code = 6212315348) 381 mg/dL 70-110 H Lab Interpretation (test code = Abnormal 34236-0) [facility] CenterCOM. METABOLIC PANEL (93110)2022-04-04 10:16:12 Test Item Value Reference Range Interpretation Comments NA (test code = 131 mmol/L 135-145 L 3583121245) K (test code = 4.0 mmol/L 3.5-5.0 2384626126) CL (test code = 93 mmol/L 98-108 L 4260190076) CO2 TOTAL (test code = 23 mmol/L 23-31 9604760505) AGAP (test code = 2-16 6089939081) BUN (test code = 20 mg/dL 7-23 9373162646) GLUCOSE (test code = 566 mg/dL 70-110 HH 1811225613) CREATININE (test code = 0.76 mg/dL 0.50-1.04 2978029529) TOTAL BILI (test code = 0.9 mg/dL 0.1-1.1 0623338798) CALCIUM (test code = 9.5 mg/dL 8.6-10.6 2779767176) T PROTEIN (test code = 7.5 g/dL 6.3-8.2 6650639914) ALBUMIN (test code = 4.4 g/dL 3.5-5.0 1655513877) ALK PHOS (test code = 130 U/L 34-122 H 4435726927) ALTv (test code = 16 U/L 5-35 1742-6) AST(SGOT) (test code = 22 U/L 13-40 7362847619) eGFR (test code = mL/min/1.73m2 6380750440) RUSS (test code = RUSS) Association of [...] tests). Lab Interpretation Abnormal (test code = 40575-5) [facility] CenterMAGNESIUM2022-05-07 09:55:58 Test Item Value Reference Range Interpretation Comments MAGNESIUM (test code = 8166788176) 1.7 mg/dL 1.7-2.4 Lab Interpretation (test code = Normal 26422-7) [facility] WITH [id number] 09:24:34 Test Item Value Reference Range Interpretation [...] (test code = 36.8 fL 39.0-49.9 L 58579-9) RDW-CV (test code = 12.2 % 12.0-15.5 788-0) PLT (test code = See_Comment [Automated 777-3) message] The sy stem which generated this result transmitted reference range : 166 - 358 10*3/ ?L. The reference r felix was not used to interpret this result as normal/abnormal . MPV (test code = 10.4 fL 9.5-12.9 14417-8) NRBC/100 WBC (test See_Comment [Automat ed code = 7238213874) message] The system which generated this result transmitted reference range : 0.0 - 10.0 /100 WBCs. The refer ence range was not u sed to interpret th is result as normal/abnormal . NRBC x10^3 (test code <0.01 See_Comment [Auto mated = 1880482082) message] The s ystem which generated this result transmitted reference range : 10*3/?L. The reference range was not used to interpret this result as normal/abnormal . GRAN MAT (NEUT) % 64.5 % (test code = 770-8) IMM GRAN % (test code 0.50 % = 1445404503) LYMPH % (test code = 26.4 % 736-9) MONO % (test code = 6.4 % 5905-5) EOS % (test code = 1.6 % 713-8) BASO % (test code = 0.6 % 706-2) GRAN MAT x10^3(ANC) 4.01 10*3/uL 1.88-7.09 (test code = 2968748271) IMM GRAN x10^3 (test 0.03 10*3/uL 0.00-0.06 code = 6083668945) LYMPH x10^3 (test code 1.64 10*3/uL 1.32-3.29 = 731-0) MONO x10^3 (test code 0.40 10*3/uL 0.33-0.92 = 742-7) EOS x10^3 (test code = 0.10 10*3/uL 0.03-0.39 711-2) BASO x10^3 (test code 0.04 10*3/uL 0.01-0.07 = 704-7) Lab Interpretation Abnormal (test code = 00760-3) [facility]PO[facility]2022-04-04 09:04:45 Test Item Value Reference Range Interpretation Comments POCT GLU (test code = 9965808683) 532 mg/dL 70-110 HH Lab Interpretation (test code = Abnormal 27218-5) [facility] CenterSALICYLATE2022-01-08 16:39:21 Test Item Value Reference Range Interpretation Comments SALICYLATE (test code <10 mg/L = 5045208293) RUSS (test code = RUSS) Therapeutic Range: ? Analgesic and Antipyretic Use ? 20-100 mg/L ? ? Anti-Inflammatory Use ? 100-250 mg/L Toxic Range: ? Greater than 300 mg/L [facility] CenterACETAMINOPHEN2022-01-08 16:39:06 Test Item Value Reference Range Interpretation Comments ACETAMINOP (test code = <10.0 10.0-30.0 L 0704000469) RUSS (test code = RUSS) Toxic: Greater than 200 ug/mL @ 4 hour post ingestion or greater than 50 ug/mL @ 12 hour post ingestion Lab Interpretation (test Abnormal code = 25176-2) [facility] CenterETHANOL2022-01-08 15:24:55 Test Item Value Reference Range Interpretation Comments ALCOHOL (test code = <10 mg/dL 3156120447) RUSS (test code = RUSS) <10 Ivddlnte29-351 Toxic>100 Depression of HR ADMINISTRATIVE ASSISTANT>400 Fatalities Reported [facility] CenterTROPONIN [id number] 15:20:39 Test Item Value Reference Interpretation Comments Range TROPONIN I (test 0.008 ng/mL See_Comment [Automated code = 0634186405) message] The system which generated this result [...] biotin. Lab Interpretation Normal (test code = 35269-4) [facility] CenterN-TERMINAL [id number] 15:17:38 Test Item Value Reference Range Interpretation Comments NT-proBNP (test code 51 pg/mL See_Comment [Autom ated = 6818339313) message] The system which generated this result transmitted reference range : <=125. The reference range was not used to interpret this result as normal/abnormal . RUSS (test code = RUSS) Biotin has been reported to cause a negative bias, interpret results relative to patient's use of biotin. Lab Interpretation Normal (test code = 97269-9) [facility]. METABOLIC PANEL (25699)2021-12-06 15:09:16 Test Item Value Reference Range Interpretation Comments NA (test code = 135 mmol/L 135-145 5345109597) K (test code = 4.1 mmol/L 3.5-5.0 7793876508) CL (test code = 99 mmol/L 98-108 8734751003) CO2 TOTAL (test code = 28 mmol/L 23-31 5022673102) AGAP (test code = 2-16 7989533695) BUN (test code = 17 mg/dL 7-23 7292719985) GLUCOSE (test code = 250 mg/dL 70-110 H 9460838772) CREATININE (test code = 0.77 mg/dL 0.50-1.04 3145915177) TOTAL BILI (test code = 0.5 mg/dL 0.1-1.1 8980221614) CALCIUM (test code = 9.4 mg/dL 8.6-10.6 8076808825) T PROTEIN (test code = 8.3 g/dL 6.3-8.2 H 0377528005) ALBUMIN (test code = 4.6 g/dL 3.5-5.0 2058119979) ALK PHOS (test code = 182 U/L 34-122 H 0212343699) ALTv (test code = 145 U/L 5-35 H 1742-6) AST(SGOT) (test code = 115 U/L 13-40 H 4629380456) eGFR (test code = mL/min/1.73m2 1021510096) RUSS (test code = RUSS) Association of [...] tests). Lab Interpretation Abnormal (test code = 19478-6) [facility] CenterACTIVATED PARTIAL THRMPLAS [id number] 15:08:56 Test Item Value Reference Range Interpretation Comments APTT Patient (test See_Comment [Automat ed code = 3173-2) message] The system which generated this result transmitted reference range : 23 - 38 Seconds . The reference range was not used to interpr et this result as normal/abnormal . RUSS (test code = RUSS) The [facility] patient population mean normal value for aPTT is 30 seconds. Lab Interpretation Normal (test code = 18627-8) [facility] CenterPROTHROMBIN TIME / [id number] 15:06:55 Test Item Value Reference Range Interpretation [...] tions. Lab Interpretation (test Normal code = 66142-7) [facility] WITH [id number] 14:52:54 Test Item Value Reference Range Interpretation [...] RDW-SD (test code = 40.9 fL 39.0-49.9 15821-7) RDW-CV (test code = 12.5 % 12.0-15.5 788-0) PLT (test code = See_Comment L [Automated 777-3) message] The sy stem which generated this result transmitted reference range : 166 - 358 10*3/ ?L. The reference r felix was not used to interpret this result as normal/abnormal . MPV (test code = 10.3 fL 9.5-12.9 99001-2) NRBC/100 WBC (test See_Comment [Automat ed code = 1360256835) message] The system which generated this result transmitted reference range : 0.0 - 10.0 /100 WBCs. The refer ence range was not u sed to interpret th is result as normal/abnormal . NRBC x10^3 (test code <0.01 See_Comment [Auto mated = 3257880011) message] The s ystem which generated this result transmitted reference range : 10*3/?L. The reference range was not used to interpret this result as normal/abnormal . GRAN MAT (NEUT) % 70.2 % (test code = 770-8) IMM GRAN % (test code 0.20 % = 9212131335) LYMPH % (test code = 20.5 % 736-9) MONO % (test code = 6.9 % 5905-5) EOS % (test code = 1.7 % 713-8) BASO % (test code = 0.5 % 706-2) GRAN MAT x10^3(ANC) 4.08 10*3/uL 1.88-7.09 (test code = 9507430756) IMM GRAN x10^3 (test <0.03 0.00-0.06 code = 0290091825) LYMPH x10^3 (test code 1.19 10*3/uL 1.32-3.29 L = 731-0) MONO x10^3 (test code 0.40 10*3/uL 0.33-0.92 = 742-7) EOS x10^3 (test code = 0.10 10*3/uL 0.03-0.39 711-2) BASO x10^3 (test code 0.03 10*3/uL 0.01-0.07 = 704-7) Lab Interpretation Abnormal (test code = 47807-6) [facility] CenterAC PANEL 21 + LACTIC [id number] 14:45:11 Test Item Value Reference Range Interpretation Comments PH (test code = 7.32-7.42 4573250601) PCO2 KINDRA (test code = See_Comment [Auto mated 2787739978) message] The sy stem which generated this result transmitted reference range : 41 - 51 mmHg. The reference range was not used to interpret this result as normal/abnormal . PO2 KINDRA (test code = See_Comment [Autom ated 4294926976) message] The sy stem which generated this result transmitted reference range : 25 - 40 mmHg. The reference range was not used to interpret this result as normal/abnormal . HCO3 KINDRA (test code = See_Comment [Auto mated 8590540791) message] The sy stem which generated this result transmitted reference range : 24 - 28 mEq/L. The reference range was not used to interpret this result as normal/abnormal . AC VBE(BEAKER) (test mEq/L code = 4629336941) THB KINDRA (test code = 13.8 g/dL 12.0-16.0 1958870831) %O2HB KINDRA (test code = 59.6 % 52.0-63.0 1268479387) %COHB KINDRA (test code = 1.8 % 0.0-1.5 H 0116862469) %METHB KINDRA (test code = 0.3 % 0.4-1.5 L 9186018193) VOL%O2 KINDRA (test code = 11.5 % 6.0-12.0 9412286283) NA (test code = 137 mmol/L 135-145 4119298853) K+ (test code = 4.2 mmol/L 3.5-5.0 4661018713) AC CA IONZ (test code = 4.60 mg/dL 4.50-5.30 0660431489) GLUCOSE (test code = 248 mg/dL 70-110 H 8308132680) LACTIC ACID (test code 1.79 mmol/L 0.50-2.20 = 7054807524) Lab Interpretation Abnormal (test code = 00009-5) [facility] 07:16:20 Test Item Value Reference Range Interpretation Comments LIPASE (test code = 1108575554) 228 U/L 0-220 H Lab Interpretation (test code = Abnormal 97875-5) [facility] CenterTROPONIN [id number] 05:59:12 Test Item Value Reference Interpretation Comments Range TROPONIN I (test 0.003 ng/mL See_Comment [Automated code = 3619653522) message] The system which generated this result [...] biotin. Lab Interpretation Normal (test code = 53638-6) [facility]. METABOLIC PANEL (93136)2021-12-06 05:49:12 Test Item Value Reference Range Interpretation Comments NA (test code = 135 mmol/L 135-145 4229467216) K (test code = 4.4 mmol/L 3.5-5.0 4880732142) CL (test code = 101 mmol/L 98-108 0495902220) CO2 TOTAL (test code = 26 mmol/L 23-31 6246778711) AGAP (test code = 2-16 3457614528) BUN (test code = 15 mg/dL 7-23 7839267315) GLUCOSE (test code = 318 mg/dL 70-110 H 9571491766) CREATININE (test code = 0.70 mg/dL 0.50-1.04 2478836119) TOTAL BILI (test code = 0.5 mg/dL 0.1-1.1 6449380891) CALCIUM (test code = 9.3 mg/dL 8.6-10.6 8077687520) T PROTEIN (test code = 8.0 g/dL 6.3-8.2 8111052149) ALBUMIN (test code = 4.4 g/dL 3.5-5.0 3061121030) ALK PHOS (test code = 189 U/L 34-122 H 1487295242) ALTv (test code = 135 U/L 5-35 H 1742-6) AST(SGOT) (test code = 173 U/L 13-40 H 4087671034) eGFR (test code = mL/min/1.73m2 0038168840) RUSS (test code = RUSS) Association of [...] tests). Lab Interpretation Abnormal (test code = 64873-3) [facility] WITH [id number] 04:44:46 Test Item Value Reference Range Interpretation Comments WBC (test code = See_Comment [Automated message] 6690-2) The system [employer] generated this result transmitted ref erence range: 4.30 - 1 1.10 10*3/?L. The re ference range was not u sed to interpret this result as normal/abnor mal. RBC (test code = See_Comment [Automated message] 789-8) The system [employer] generated this result transmitted ref erence range: [...] RDW-SD (test code 39.8 fL 39.0-49.9 = 38591-7) RDW-CV (test code 12.3 % 12.0-15.5 = 788-0) PLT (test code = See_Comment [Automated message] 777-3) The system whic h generated this result transmitted ref erence range: 166 - 35 8 10*3/?L. The re ference range was not u sed to interpret this result as normal/abnor mal. MPV (test code = 10.9 fL 9.5-12.9 81964-3) NRBC/100 WBC (test See_Comment [Automat ed message] code = 8774193339) The syste m which generated this result transmitted ref erence range: 0.0 - 10 .0 /100 WBCs. The refer ence range was not u sed to interpret this result as normal/abnor mal. NRBC x10^3 (test <0.01 See_Comment [Automated message] code = 3790818506) The syste m which generated this result transmitted ref erence range: 10*3/?L. The reference range was not used to interpr et this result as normal/abnormal . GRAN MAT (NEUT) % 64.7 % (test code = 770-8) IMM GRAN % (test 0.30 % code = 7932009869) LYMPH % (test code 25.5 % = 736-9) MONO % (test code 7.1 % = 5905-5) EOS % (test code = 1.9 % 713-8) BASO % (test code 0.5 % = 706-2) GRAN MAT 3.80 10*3/uL 1.88-7.09 x10^3(ANC) (test code = 8793348285) IMM GRAN x10^3 <0.03 0.00-0.06 (test code = 7555924470) LYMPH x10^3 (test 1.50 10*3/uL 1.32-3.29 code = 731-0) MONO x10^3 (test 0.42 10*3/uL 0.33-0.92 code = 742-7) EOS x10^3 (test 0.11 10*3/uL 0.03-0.39 code = 711-2) BASO x10^3 (test 0.03 10*3/uL 0.01-0.07 code = 704-7) [facility]"
[2023-10-13 10:07] LABS: Absolute Lymphocytes (CBC) 1.4 K/uL (0.7-4.9); Hematocrit 41.7 % (36.0-45.0); Lymphocytes % 21.4 % (15.3-44.8); MCV 87.5 fL (80-100); MPV 8.4 fL (7.6-11.3); Platelets 171 thou/uL (152-406); RBC Red Blood Cell Count 4.76 M/uL (3.86-4.86)
[2023-10-13 10:21] LABS: Albumin 3.9 g/dL (3.4-5.0); Bilirubin Total 0.5 mg/dL (0.2-1.0); Potassium 3.8 mEq/L (3.5-5.1); Protein, Total 8.4 g/dL (6.4-8.2); Troponin High Sensitivity 3.9 pg/mL (<58.9)
--- NOTE | 2023-10-13 10:28 | RAD REPORT ---
EXAM DESCRIPTION: RADChest Single View10/13/2023 10:07 am CLINICAL HISTORY: CHEST PAIN COMPARISON: Chest Single View dated 09/02/2023; Chest Single View dated 07/17/2023; Chest Single View dated 06/24/2023; Chest Single View dated 02/19/2023 TECHNIQUE: Portable AP view of the chest. FINDINGS: The lungs are clear. No pneumothorax or effusion. The cardiomediastinal contours are unre markable. IMPRESSION: No acute cardiopulmonary process.
[2023-10-13] MEDS ORDERED: ASPIRIN 81 MG CHEWABLE TABLET ONE (10:32)
--- NOTE | 2023-10-13 11:28 | EDPHYS ---
Physician Documentation [facility] Name: Elaine Rowland Age: 53 yrs Sex: Female : 1970 Arrival Date: 10/13/2023 Time: 09:39 Bed 20 Private MD: ED Physician Jeff Gary HPI: 10/13 11:21 This 53 yrs old Female presents to ER via Ambulatory with complaints of Chest Pain, kb Headache. 11:21 Patient is a 53-year-old female who presents for right-sided chest pain, epigastric kb pain, shortness of breath, diarrhea and cough for 3 days. Reports he is also had a headache for 2 to 3 weeks. Denies fever. Historical: - Allergies: 09:48 NKDA; ll1 - PMHx: 09:48 abd hernia; acid reflux; Anxiety; cirrhosis of liver; COPD; Diabetes - NIDDM; ll1 Hyperlipidemia; Hypertensive disorder; - PSHx: 09:48 carpal tunnel SX (Hypertensive disorder); ll1 - Immunization history:: Adult Immunizations up to date. - Social history:: Smoking status: Patient denies any tobacco usage or history of. ROS: 10:33 Constitutional: Negative for fever, chills, and weight loss, kb 10:33 Cardiovascular: Positive for chest pain, 10:33 Respiratory: Positive for cough, shortness of breath, 10:33 Abdomen/GI: Positive for abdominal pain, diarrhea, 10:33 Neuro: Positive for headache, 10:33 All other systems are negative, Exam: 10:24 Constitutional: This is a well developed, well nourished patient who is awake, alert, kb and in no acute distress. Head/Face: Normocephalic, atraumatic. ENT: Moist Mucous membranes Cardiovascular: Regular rate Respiratory: Respirations even and unlabored. No increased work of breathing. Talking in full sentences Skin: Warm, dry with normal turgor. Normal color. MS/ Extremity: Pulses equal, no cyanosis. Neurovascular intact. Full, normal range of motion. Neuro: Awake and alert, GCS 15, oriented to person, place, time, and situation. Moves all extremities. Normal gait. 10:24 ECG was reviewed by the Attending Physician. 10:24 Abdomen/GI: Inspection: abdomen appears normal, Bowel sounds: normal, Palpation: soft, in all quadrants, mild abdominal tenderness, in all quadrants, Vital Signs: 09:45 BP 180 / 96; Pulse 73; Resp 17; Temp 98; Pulse Ox 100% ; Weight 68.04 kg; Height 5 ft. ll1 2 in. ; Pain 10/10; 09:45 BP 154 / 68; Pulse 71; Resp 18; Pulse Ox 100% on R/A; db 12:42 BP 149 / 71; Pulse 73; Resp 18; Pulse Ox 99% on R/A; db 09:45 Body Mass Index 27.44 (68.04 kg, 157.48 cm) ll1 09:45 Pain Scale: Adult ll1 MDM: 09:40 Patient medically screened. kb 10:33 ED course: Pt reports she has been out of insulin and metformin for one week. . kb 11:19 Differential diagnosis: abnormal EKG, acute myocardial infarction, coronary artery kb disease chest wall pain, gastritis, gastroesophageal reflux disease (GERD), flu, covid. Data reviewed: vital signs, nurses notes. 11:28 Consideration of Admission/Observation Escalation of care including kb admission/observation considered. admission considered for chest pain. 11:29 Counseling: I had a detailed discussion with the patient and/or guardian regarding the kb historical points, exam findings, and any diagnostic results supporting the discharge/admit diagnosis, lab results, radiology results, the need for outpatient follow up, a family practitioner, to return to the emergency department if symptoms worsen or persist or if there are any questions or concerns that arise at home. ED course: Pt requesting to be discharged at this time. 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 10/13 09:47 Order name: CBC with Diff; Complete Time: 10:14 kb 10/13 09:47 Order name: Magnesium; Complete Time: 10:22 kb 10/13 09:47 Order name: NT PRO-BNP; Complete Time: 10:22 kb 10/13 09:47 Order name: Troponin HS; Complete Time: 10:22 kb 10/13 09:47 Order name: CMP; Complete Time: 10:22 kb 10/13 09:47 Order name: Lipase; Complete Time: 10:22 kb 10/13 10:29 Order name: Flu; Complete Time: 12:11 kb 10/13 10:29 Order name: SARS-COV-2 Antigen Rapid; Complete Time: 12:09 kb 10/13 11:50 Order name: Glucose, Ancillary Testing; Complete Time: 11:52 EDMS 10/13 09:47 Order name: XRAY Chest (1 view); Complete Time: 10:28 kb 10/13 09:47 Order name: EKG; Complete Time: 09:47 kb 10/13 09:47 Order name: Cardiac monitoring; Complete Time: 09:59 kb 10/13 09:47 Order name: EKG - Nurse/Tech; Complete Time: 09:47 kb 10/13 09:47 Order name: IV Saline Lock; Complete Time: 09:59 kb 10/13 09:47 Order name: Labs collected and sent; Complete Time: 09:59 kb 10/13 09:47 Order name: O2 Per Protocol; Complete Time: 09:59 kb 10/13 09:47 Order name: O2 Sat Monitoring; Complete Time: 09:59 kb EC:24 Rate is 69 beats/min. Rhythm is regular. QRS [place] is Normal. FL interval is normal at kb 160 msec. QRS interval is normal at 86 msec. QT interval is normal at 447 msec. Administered Medications: 10:20 Drug: Aspirin PO Chewable Tablet 324 mg PO once; 81 mg tablets x 4 Route: PO; db 12:43 Follow up: Response: No adverse reaction db 11:30 Drug: NS 0.9% IV 1000 ml IV at 1000 ml once Route: IV; Rate: 1000 ml; Site: right db antecubital; 12:43 Follow up: Response: No adverse reaction; IV Status: Completed infusion; IV Intake: db 1000ml 11:35 Drug: Insulin Regular Human IVP 5 units IVP once {Co-Signature: eh3 (Ceci Paris RN).} db Route: IVP; Site: right antecubital; 12:43 Follow up: Response: No adverse reaction db Point of Care Testing: Blood Glucose: 11:35 Blood Glucose: 425 mg/dL; db Ranges: Critical Glucose Levels:Adult <50 mg/dl or >400 mg/dl <40 mg/dl or >180 mg/dl Disposition Summary: 10/13/23 11:27 Discharge Ordered Notes: Location: Home Condition: Stable kb Diagnosis - Hyperglycemia, unspecified kb - Chest pain, unspecified kb Followup: kb - With: Emergency Department - When: As needed - Reason: Worsening of condition Followup: kb - With: Private Physician - When: 2 - 3 days - Reason: Recheck today's complaints, Continuance of care, Re-evaluation by your physician Discharge Instructions: - Discharge Summary Sheet kb - Nonspecific Chest Pain, Adult, [id number] kb - Hyperglycemia, [id number] kb Forms: - Medication Reconciliation Form kb - Thank You Letter kb - Antibiotic Education kb - Prescription Opioid Use kb - Patient Portal Instructions kb - Leadership Thank You Letter kb Prescriptions: - Metformin 500 mg Oral tablet - take 1 tablet ORAL route 2 times per day; 30 tablet; Refills: 0, Product kb Selection Permitted Addendum: 10/15/2023 20:15 I was immediately available for consultation during this patient's visit. I did not e c2 personally see the patient or guide the patient's care.. Signatures: Dispatcher [employer] Mariposa Wu, LEADING FIREFIGHTER-C LEADING FIREFIGHTER-Silvano Dockery RN RN ll1 Antonia Orta RN RN db Jeff Gary MD MD 2 Ceci Paris RN 3
--- NOTE | 2023-10-13 11:28 | ER ---
Nurse's Notes [facility] Name: Elaine Rowland Age: 53 yrs Sex: Female : 1970 Arrival Date: 10/13/2023 Time: 09:39 Bed 20 Private MD: Diagnosis: Hyperglycemia, unspecified;Chest pain, unspecified Presentation: 10/13 09:45 Chief complaint: Patient states: HINSON for 2-3 weeks. R CP for 3 days. No fever. + SOB and ll1 diarrhea. Cough for 2 days. Coronavirus screen: Vaccine status: Patient reports receiving the 2nd dose of the covid vaccine. Client denies travel out of the [place] in the last 14 days. At this time, the client does not indicate any symptoms associated with coronavirus-19. Ebola Screen: Patient denies travel to an Ebola-affected area in the 21 days before illness onset. Initial Sepsis Screen: Does the patient meet any 2 criteria? No. Patient's initial sepsis screen is negative. Does the patient have a suspected source of infection? No. Patient's initial sepsis screen is negative. Risk Assessment: Do you want to hurt yourself or someone else? Patient reports no desire to harm self or others. Onset of symptoms was September 29, 2023. 09:45 Method Of Arrival: Ambulatory ll1 09:45 Acuity: SHAINA 3 ll1 Triage Assessment: 09:48 General: Appears uncomfortable, Behavior is calm, cooperative, appropriate for age. ll1 Pain: Complains of pain in abdomen Pain currently is 10 out of 10 on a pain scale. Cardiovascular: Reports chest pain, shortness of breath. Respiratory: Reports shortness of breath cough that is. GI: Reports diarrhea. Historical: - Allergies: 09:48 NKDA; ll1 - PMHx: 09:48 abd hernia; acid reflux; Anxiety; cirrhosis of liver; COPD; Diabetes - NIDDM; ll1 Hyperlipidemia; Hypertensive disorder; - PSHx: 09:48 carpal tunnel SX (Hypertensive disorder); ll1 - Immunization history:: Adult Immunizations up to date. - Social history:: Smoking status: Patient denies any tobacco usage or history of. Screenin:28 [facility] ED Fall Risk Assessment (Adult) History of falling in the last 3 months, db including since admission No falls in past 3 months (0 pts) Confusion or Disorientation No (0 pts) Intoxicated or Sedated No (0 pts) Impaired Gait No (0 pts) Mobility Assist Device Used No (0 pt) Altered Elimination No (0 pt) Score/Fall Risk Level 0 - 2 = Low Risk Oriented to surroundings, Maintained a safe environment. Abuse screen: Denies threats or abuse. Denies injuries from another. Nutritional screening: No deficits noted. Nutritional screening: No deficits noted. Tuberculosis screening: No symptoms or risk factors identified. Assessment: 11:35 Reassessment: Patient appears in no apparent distress at this time. Patient and/or db family updated on plan of care and expected duration. Pain level reassessed. Patient is alert, oriented x 3, equal unlabored respirations, skin warm/dry/pink. General: Appears in no apparent distress. comfortable, Behavior is calm, cooperative. Pain: Complains of pain in head and abdomen Pain does not radiate. Pain began gradually. Neuro: Level of Consciousness is awake, alert, obeys commands, Oriented to person, place, time, situation. Respiratory: Airway is patent Respiratory effort is even, unlabored, Respiratory pattern is regular, symmetrical. 12:31 Reassessment: Patient appears in no apparent distress at this time. Patient and/or db family updated on plan of care and expected duration. Pain level reassessed. Patient is alert, oriented x 3, equal unlabored respirations, skin warm/dry/pink. General: Appears in no apparent distress. comfortable, Behavior is calm, cooperative. 12:42 Reassessment: Patient appears in no apparent distress at this time. Patient and/or db family updated on plan of care and expected duration. Pain level reassessed. Patient is alert, oriented x 3, equal unlabored respirations, skin warm/dry/pink. Patient states feeling better. Patient states symptoms have improved. Vital Signs: 09:45 BP 180 / 96; Pulse 73; Resp 17; Temp 98; Pulse Ox 100% ; Weight 68.04 kg; Height 5 ft. ll1 2 in. ; Pain 10/10; 09:45 BP 154 / 68; Pulse 71; Resp 18; Pulse Ox 100% on R/A; db 12:42 BP 149 / 71; Pulse 73; Resp 18; Pulse Ox 99% on R/A; db 09:45 Body Mass Index 27.44 (68.04 kg, 157.48 cm) ll1 09:45 Pain Scale: Adult ll1 ED Course: 09:39 Patient arrived in ED. mg5 09:40 Mariposa Triana FNP-C is PSYCHIATRICP. kb 09:40 Jeff Gary MD is Attending Physician. kb 09:45 Arm band placed on Patient placed in an exam room, on a stretcher. ll1 09:48 Triage completed. ll1 09:49 Antonia Orta, RN is Primary Nurse. db 10:09 XRAY Chest (1 view) In Process Unspecified. EDMS 12:28 Inserted saline lock: 22 gauge in right antecubital area, using aseptic technique. db Patient maintains SpO2 saturation greater than 95% on room air. 12:31 Patient has correct armband on for positive identification. Bed in low position. Call db light in reach. Side rails up X 1. Client placed on continuous cardiac and pulse oximetry monitoring. NIBP monitoring applied. 12:31 Door closed. Warm blanket given. db 12:42 Provided Education on: DISCHARGE. db 12:42 No provider procedures requiring assistance completed. IV discontinued, intact, db bleeding controlled, No redness/swelling at site. Administered Medications: 10:20 Drug: Aspirin PO Chewable Tablet 324 mg PO once; 81 mg tablets x 4 Route: PO; db 12:43 Follow up: Response: No adverse reaction db 11:30 Drug: NS 0.9% IV 1000 ml IV at 1000 ml once Route: IV; Rate: 1000 ml; Site: right db antecubital; 12:43 Follow up: Response: No adverse reaction; IV Status: Completed infusion; IV Intake: db 1000ml 11:35 Drug: Insulin Regular Human IVP 5 units IVP once {Co-Signature: eh3 (Ceci Paris RN).} db Route: IVP; Site: right antecubital; 12:43 Follow up: Response: No adverse reaction db Medication: 12:42 VIS not applicable for this client. db Point of Care Testing: Blood Glucose: 11:35 Blood Glucose: 425 mg/dL; db Ranges: Intake: 12:43 IV: 1000ml; Total: 1000ml. db Outcome: 11:27 Discharge ordered by . kb 12:42 Discharged to home ambulatory, db 12:42 Condition: stable 12:42 Discharge instructions given to patient, Instructed on discharge instructions, follow up and referral plans. Prescriptions given X 1, 12:44 Patient left the ED. db Signatures: Dispatcher [employer] EDMariposa Mccormick, OLIVE BRADLEY-Silvano Dockery RN RN ll1 Antonia Orta RN RN Agnes Maya 5 Ceci Paris RN eh3
[2023-10-13] MEDS ORDERED: NA CHLORIDE 0.9% 1,000 ML ONE (11:46)
[2023-10-13 11:58] LABS: SARS-CoV-2 Antigen Rapid Res Negative (Negative)
[2023-10-13 12:57] VITALS: TEMP 98
[2023-10-13 12:59] VITALS: BP 149/71; O2SAT 99
--- NOTE | 2023-10-13 17:37 | EKG ---
Test Date: 2023-10-13 Test Time: 09:44:46 Passenger Representative: JACOBO MEASUREMENT RESULTS: Intervals: Rate: 69 [place]: 160 QRSD: 86 QT: 418 QTc: 447 [place]: P: 55 NJ: 160 QRS: 18 T: 61 INTERPRETIVE STATEMENTS: Normal sinus rhythm Nonspecific T wave abnormality Abnormal ECG Compared to ECG 09/02/2023 19:27:32 T-wave abnormality now present Myocardial infarct finding no longer present Electronically Signed On 10-13-23 17:26:18 GLASS GLAZIER by Ruben Quesada
== END 2023-10-13 12:44 | disposition home or self-care (01) ==
LOC: ER 09:39
DX: R07.89 Other chest pain (principal); E11.65 Type 2 diabetes mellitus with hyperglycemia; Z11.52 Encounter for screening for COVID-19
CPT/HCPCS: 96361; 93005; 85025; 36415; 83735; 82947; 84484; 83690; 80053; 83880; 87804 ×2; 71045; 96374; 99285; 87811; J7030

== ENCOUNTER 2024-05-18 07:35 | Emergency (ER) | payer OTHER ==
--- OUTSIDE RECORDS SUMMARY | 2024-05-18 07:45 | XMS REPORT | Continuity of Care Document ---
Author Name Unknown Address [address] [facility] [address] [place] [address] [facility] thconnect Address [address] [facility] [address] [place] [address] Care Team Providers Care Mems Device Scientist Name Role Phone FLORINA BALTAZAR Primary Care Physician Unavail able MIREYA ANDERSON Attending Clinician Unavailable HUSSAIN BRAUN Attending Clinician Anjali RESHMA Win Attending Clinician Unavailable MARIELLA PADILLA Attending Clinician Unavailable ABILIO MOLINA Attending Clinician Unavailable BERONICA JAMES Attending Clinician Unava ilDESHAWN Dale Attending Clinician Unavailable LAB90 Attending Clinician Unavailable ANGELI KEEN Attending Clinician Unavailable HOLLY VILLANUEVA Attending Clinician Unavailab JOHNAHTON Oro Attending Clinician Unavailable RESHMA ANAND Attending Clinician Unavailable DINH LOPEZ Attending Clinician Unavailable STEW GAGE Attending Clinician Unavailable ARIE Attending Clinician Unavailable Jarvis BRADLEY-Rodney VENCES DNP Attending Clinician RODNEY COLEMAN Attending Clinician Unavailable Doctor Unassigned, [place] Attending Clinician U ROSI Albright Attending Clinician Unavailab MAITE Carbone Attending Clinician Unavailable CHARLENE CRISOSTOMO Attending Clinician Unavailable Charlene Crisostomo MD Attending Clinician [phone] GUANAKITO HOOPER Attending Clinician Unavailable Jonathan Baez MD Attending Clinician [phone] Guanakito Hooper MD Attending Clinician [phone] ANDREZ GTZ Attending Clinician Unavaila [facility] Attending Clinician Unavailable Mireya Anderson MD Attending Clinician [phone] CHARLETTE HOLLOWAY Attending Clinician Unavailab Charlette Tinsley DO Attending Clinician [phone] JONATHAN BAEZ Attending Clinician Unavailable JENNY BURCH Attending Clinician Unavailable Jenny Burch MD Attending Clinician [phone] CONNIE VALENCIA Attending Clinician Unavailable Connie Valencia MD Attending Clinician [phone] Jane COURTNEY Attending Clinician Unavailable Jane Domínguez Attending Clinician [phone] XIOMARA HERNANDEZ Attending Clinician Unavaila brittney Hernandez ACNXiomara Ribera Attending Clinician + [phone] ARGELIA CARSON Attending Clinician Unavailable Argelia Alvarez Attending Clinician [phone] Jc Krishnamurthy Attending Clinician +[phone] MINH HARTMAN Attending Clinician Unavailable Minh Hartman MD Attending Clinician + [phone] YAZAN VARELA Attending Clinician Unavailable FLORINA BALTAZAR Attending Clinician UnavailMIREYA Valdivia Admitting Clinician Unavailable GUANAKITO HOOPER Admitting Clinician Unavailable Guanakito Hooper MD Admitting Clinician [phone] CHARLETTE HOLLOWAY Admitting Clinician Unavailab JONATHAN De Paz Admitting Clinician Unavailable JENNY BURCH Admitting Clinician Unavailable Jane COURTNEY Admitting Clinician Unavailable ARGELIA CARSON Admitting Clinician Unavailable JC MIRZA Admitting Clinician Unavailable MINH HARTMAN Admitting Clinician Unavailable Payers Payer Name Policy Type Policy Number Effective Date Expirati on Date Source [facility] [id number] 2022 00:00:00 2023 00:00:00 [facility] HORTENSIA ANTHONYC COPAY FOCUS 9 [id number] 2024 00:00:00 [employer] MP [employer] 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 [id number] 00:00:00 Problems Condition Name Condition Details Condition Category Status Onset Date Resolution Date Last Treatment Date Treating Clinician Comments Source GERD (gastroeso phageal reflux disease) GERD (gastroeso phageal reflux disease) Disease Active 02-14 00:00: 00 Sarahy Romeroold - Externa l Asthma (HHS-HCC) Asthma (HHS-HCC) Disease Active 02-14 00:00: 00 Sarahy Marquesybold - Externa l DM type 2 with diabetic peripheral neuropathy (multi HCC) DM type 2 with diabetic peripheral neuropathy (multi HCC) Disease Active 02-14 00:00: 00 Sarahy Romeroold - Externa l Severe nonprolife rative diabetic retinopath y associated with type 2 diabetes mellitus (multi HCC) Severe nonprolife rative diabetic retinopath y associated with type 2 diabetes mellitus (multi HCC) Disease Active 02-10 00:00: 00 Sarahy Romeroold - Externa l Obesity Obesity Disease Active 02-01 00:00: 00 Sarahy Romeroold - Externa l ERRONEOUS ENCOUNTER- -DISREGARD ERRONEOUS ENCOUNTER- -DISREGARD Disease Active 01-25 00:00: 00 [facility] Immunodefi ciency due to poorly controlled type 2 diabetes (CMS/HCC) (multi HCC) Immunodefi ciency due to poorly controlled type 2 diabetes (CMS/HCC) (multi HCC) Disease Active 01-17 00:00: 00 Sarahy Romeroold - Externa l Obesity (BMI 30-39.9) Obesity (BMI 30-39.9) Disease Active 12-24 00:00: 00 [facility] Chest pain, unspecifie d type Chest pain, unspecifie d type Disease Active 12-22 00:00: 00 [facility] Family history of early CAD Family history of early CAD Disease Active 12-22 00:00: 00 [facility] Coronary artery calcificat ion Coronary artery calcificat ion Disease Active 12-22 00:00: 00 [facility] DM type 2 with diabetic mixed hyperlipid emia (multi HCC) DM type 2 with diabetic mixed hyperlipid emia (multi HCC) Disease Active 12-03 00:00: 00 Sarahy Varma - Externa l Primary hypertensi on Primary hypertensi on Disease Active 12-03 00:00: 00 Sarahy Varma - Externa l Abdominal pain, epigastric Abdominal pain, epigastric Disease Active 01-25 00:00: 00 Overview: Formattin g of this note might be different from the original. Added automatic ally from request for surgery [id number] [facility] Nausea and vomiting Nausea and vomiting Disease Active 01-21 00:00: 00 [facility] Bloating Bloating Disease Active 01-21 00:00: 00 [facility] Carpal tunnel syndrome of right wrist Carpal tunnel syndrome of right wrist Disease Active 01-03 00:00: 00 [facility] S/P left knee arthroscop y S/P left knee arthroscop y Disease Active 12-06 00:00: 00 [facility] Essential hypertensi on Essential hypertensi on Disease Active 06-27 00:00: 00 [facility] Type 2 diabetes mellitus without complicati on Type 2 diabetes mellitus without complicati on Disease Active 06-27 00:00: 00 [facility] Tobacco abuse Tobacco abuse Disease Active 06-27 00:00: 00 [facility] Allergies, Adverse Reactions, Alerts Allergy Name Allergy Type Status Severity Reaction(s) Onset Date Inactive Date Treating Clinician Comments Source Hydrocod one Propensi ty to adverse reaction s Active Itching 01-17 00:00: 00 Sarahy byrd IBUPROFE N DRUG INGREDI Active Anxiety 2014-11 00:00: 00 Capo y [facility] Ibuprofe n Propensi ty to adverse reaction s Active Itching 2014-11 00:00: 00 Pt has been taking advil at home without any issues Sarahy byrd Social History Social Habit Start Date Stop Date Quantity Comments Source History of tobacco use Cigarette Smoker Sarahy Pelletier External Sexual orientation Jane susuester Kojo - External Tobacco use and exposure 2024-04-13 00:00:00 2024-04-13 00:00:00 Smokeless tobacco non-user Sarahy Varma - External Alcoholic beverage intake 2024-04-13 00:00:00 2024-04-13 00:00:00 Ex-drinker (finding) Sarahy Varma - Tonja Cigarettes smoked current (pack per day) - Reported 2024-04-13 00:00:00 2024-04-13 00:00:00 Sarahy Evangelista Cigarette pack-years 2024-04-13 00:00:00 2024-04-13 00:00:00 Sarahy Pelletier External Alcohol intake 2024-02-15 00:00:00 2024-02-15 00:00:00 Ex-drinker (finding) Sarahy Varma - External Education - What is the highest level of school you have completed or the highest degree you have received? 2024-02-02 00:00:00 2024-02-02 00:00:00 11th grade Sarahy Pelletier External Alcohol Comment 2024-02-02 00:00:00 2024-02-02 00:00:00 Sober since 2022. She did drink alot prior to that time Sarahy Pleletier External History of Social function 2023-10-05 00:00:00 2023-10-05 00:00:00 Sarahy Pelletier External Tobacco Comment 2023-10-05 00:00:00 2023-10-05 00:00:00 Quit 6 months ago Sarahy Seybold - External Exposure to SARS-CoV-2 (event) 2023-01-11 00:00:00 2023-01-21 10:29:00 Not sure [facility] Sex assigned at 1970 00:00:00 1970 00:00:00 Sarahy Evangelista Smoking Status Start Date Stop Date Source Ex-smoker 2024-04-13 00:00:00 2024-04-13 00:00:00 Jaen susuester Kojo Pelletier External Medications Ordered Medication Name Filled Medication Name Start Date Stop Date Current Medication? Ordering Clinician Indication Dosage Frequency Signature (SIG) Comments Components Source Insulin Glargine (Basaglar KwikPen) 100 UNIT/ML subcutaneou s Solution Pen-injecto r 03-17 00:00: 00 Yes [id number] 3 INJECT 25 UNITS UNDER THE SKIN DAILY. Sarahy byrd Aspirin (Aspirin 81) 81 MG oral Tablet Delayed Response 02-14 10:36: 13 Yes [id number] 81mg Take 1 tablet (81 mg total) by mouth daily. Sarahy byrd Magnesium 200 MG oral Chewable Tablet 02-14 10:36: 13 Yes [id number] 2{tbl} Take 2 tablets by mouth daily. Sarahy byrd Insulin NPH, Human,, Isophane, (NovoLIN N) 100 UNIT/ML subcutaneou s Suspension 02-10 11:48: 16 02-10 00:00 :00 No 25U Inject 25 units into the skin 3 times daily (before meals). Sarahy byrd Aspirin (Aspirin 81) 81 MG oral Tablet Delayed Response 02-10 11:28: 07 Yes [id number] 81mg Take 1 tablet (81 mg total) by mouth daily. Sarahy byrd Magnesium 200 MG oral Chewable Tablet 02-10 11:28: 07 Yes [id number] 2{tbl} Take 2 tablets by mouth daily. Sarahy byrd Insulin Pen Needle 31G X 5 MM does not apply Misc 02-10 00:00: 00 Yes [id number] 3 Inject insulin once daily. Sarahy byrd glipiZIDE 5 MG oral Tablet 02-10 00:00: 00 Yes [id number] 3 5mg Take 1 tablet (5 mg total) by mouth daily (before a meal). Sarahy byrd Pioglitazon e HCl 30 MG oral Tablet 02-10 00:00: 00 Yes [id number] 3 30mg Take 1 tablet (30 mg total) by mouth daily. Sarahy byrd Aspirin (Aspirin 81) 81 MG oral Tablet Delayed Response 02-08 15:21: 47 Yes [id number] 81mg Take 1 tablet (81 mg total) by mouth daily. Sarahy byrd Magnesium 200 MG oral Chewable Tablet 02-08 15:21: 47 Yes [id number] 2{tbl} Take 2 tablets by mouth daily. Sarahy byrd Magnesium 200 MG oral Chewable Tablet 02-01 09:08: 16 Yes [id number] 2{tbl} Take 2 tablets by mouth daily. Sarahy byrd Pantoprazol e Sodium (Protonix) 40 MG oral Tablet Delayed Response 02-01 08:57: 09 02-01 00:00 :00 No 40mg Take 1 tablet (40 mg total) by mouth daily. Sarahy byrd Metformin HCl 1000 MG oral Tablet 02-01 08:57: 09 02-01 00:00 :00 No 1000mg Take 1 tablet (1,000 mg total) by mouth in the morning and 1 tablet (1,000 mg total) in the evening. Take with meals. Sarahy byrd Aspirin (Aspirin 81) 81 MG oral Tablet Delayed Response 02-01 08:50: 06 Yes [id number] 81mg Take 1 tablet (81 mg total) by mouth daily. Sarahy byrd Metformin HCl 1000 MG oral Tablet 02-01 00:00: 00 Yes [id number] 3 1000mg Take 1 tablet (1,000 mg total) by mouth in the morning and 1 tablet (1,000 mg total) in the evening. Take with meals. Sarahy byrd Simvastatin 40 MG oral Tablet 02-01 00:00: 00 Yes [id number] 3 40mg Take 1 tablet (40 mg total) by mouth nightly. Sarahy byrd Ondansetron (ZOFRAN) 4 MG oral TABLET DISPERSIBLE 02-01 00:00: 00 Yes [id number] 4mg QD Take 1 tablet (4 mg total) by mouth daily as needed for nausea. Sarahy byrd Pantoprazol e Sodium (Protonix) 40 MG oral Tablet Delayed Response 02-01 00:00: 00 Yes [id number] 40mg Take 1 tablet (40 mg total) by mouth daily. Sarahy byrd Losartan Potassium 25 MG oral Tablet 02-01 00:00: 00 Yes [id number] 25mg Take 1 tablet (25 mg total) by mouth daily. Sarahy byrd Insulin Glargine (Basaglar KwikPen) 100 UNIT/ML subcutaneou s Solution Pen-injecto r 02-01 00:00: 00 Yes [id number] 3 25 units sc daily. Sarahy byrd Albuterol HFA 108 (90 Base) MCG/ACT IN AERS 02-01 00:00: 00 Yes [id number] 2{puff} Q.25D Inhale 2 puffs into the lungs every 6 hours as needed for wheezing or shortness of breath. Sarahy byrd Fluticasone -Salmeterol 250-50 MCG/ACT inhalation AEROSOL POWDER, BREATH ACTIVATED 02-01 00:00: 00 Yes [id number] 1{puff} Inhale 1 puff into the lungs 2 times daily. Sarahy byrd Gabapentin 100 MG oral Capsule 02-01 00:00: 00 02-14 00:00 :00 No [id number] 31064 100mg Q.5D Take 1 capsule (100 mg total) by mouth 2 times daily as needed (pain). Sarahy byrd Tramadol HCl (ULTRAM) 50 MG oral Tablet 05 11:13: 27 01-03 00:00 :00 No 50mg Take 1 tablet (50 mg total) by mouth every 12 hours as needed. Sarahy byrd Metformin HCl 1000 MG oral Tablet 01-03 10:42: 42 Yes 1000mg Take 1 tablet (1,000 mg total) by mouth in the morning and 1 tablet (1,000 mg total) in the evening. Take with meals. Sarahy byrd Tramadol HCl (ULTRAM) 50 MG oral Tablet 01-03 00:00: 00 Yes [id number] 50mg Q.[id number] 3D Take 1 tablet (50 mg total) by mouth every 8 hours as needed. Sarahy byrd aspirin 81 mg EC tablet 12-25 00:00: 00 Yes [id number] 81mg Take 1 tablet by mouth in the morning. [facility] lisinopriL 10 mg tablet 12-25 00:00: 00 01-25 05:59 :00 No [id number] 10mg Take 1 tablet by mouth in the morning for [address] [facility] magnesium oxide (MAG-OX 400) tablet 800 mg 12-24 19:15: 00 Yes 800mg 800 mg, Oral, DAILY, First dose (after last reorder) on Wed12/24/23 at 1315, Until Discontinu ed, PATRIZIA [facility] lisinopriL (PRINIVIL,Z ESTRIL) tablet 20 mg 12-24 15:00: 00 Yes 20mg 20 mg, Oral, DAILY, First dose (after last modificati on) on Wed12/24/23 at 0900, Until Discontinu ed, Routine [facility] traMADOL (ULTRAM) 50 mg tablet 12-24 13:21: 54 12-24 00:00 :00 No 50mg Take 1 tablet by mouth every 12 (twelve) hours as needed for Pain unrelieved by non-narcot ic analgesics . [facility] CANAGLIFLOZ IN (INVOKANA ORAL) 12-24 13:21: 54 12-24 00:00 :00 No 1000mg Take 1,000 mg by mouth 2 (two) times daily. [facility] insulin NPH (HUMULIN N) injection 12 Units 12-24 03:00: 00 Yes 12U 12 Units, Subcutaneo us, QAM+HS, First dose (after last modificati on) on Marleny 12/23/23 at 2100, Until Discontinu ed, Routine [facility] NovoLIN N ReliOn 100 UNIT/ML subcutaneou s Suspension 12-24 00:00: 00 Yes INJECT 15 UNITS SUBCUTANEO USLY IN THE MORNING AND AT BEDTIME Sarahy byrd Lisinopril 10 MG oral Tablet 12-24 00:00: 00 Yes 10mg Take 1 tablet (10 mg total) by mouth daily. Sarahy byrd Ondansetron (ZOFRAN) 4 MG oral TABLET DISPERSIBLE 12-24 00:00: 00 Yes 4mg Q.[id number] 3D Take 1 tablet (4 mg total) by mouth every 8 hours as needed. Sarahy byrd Simvastatin 40 MG oral Tablet 12-24 00:00: 00 Yes 40mg Take 1 tablet (40 mg total) by mouth nightly. Sarahy byrd albuterol 90 mcg/actuati on inhaler 12-24 00:00: 00 Yes [id number] 2{puff} Inhale 2 Puffs every 6 (six) hours as needed for Wheezing or Shortness of Breath. [facility] Lancing Device with Lancets (MULTI-LANC ET DEVICE 2) Kit 12-24 00:00: 00 Yes [id number] Use as directed [facility] Blood-Gluco se Meter Kit 12-24 00:00: 00 Yes [id number] Use as directed [facility] metFORMIN 1,000 mg tablet 12-24 00:00: 00 01-24 05:59 :00 No [id number] 1000mg Take 1 tablet by mouth in the morning and 1 tablet in the evening. Take with meals. Do all this for [address] [facility] pantoprazol e 40 mg EC tablet 12-24 00:00: 00 01-24 05:59 :00 No [id number] 40mg Take 1 tablet by mouth in the morning for [address] [facility] insulin NPH 100 unit/mL injection 12-24 00:00: 00 01-24 05:59 :00 No [id number] 15U inject 15 Units under the skin every morning and at bedtime for [address] [facility] magnesium oxide 420 mg Tab 12-24 00:00: 00 01-09 05:59 :00 No [id number] 800mg Take 800 mg by mouth in the morning and 800 mg in the evening. Do all this for [address] [facility] aspirin EC tablet 81 mg 12-23 15:00: 00 Yes 81mg 81 mg, Oral, DAILY, First dose on Wed12/23/23 at 0900, Until Discontinu ed, Routine [facility] KCL (KLOR-CON M20) tablet 40 mEq 12-23 13:30: 00 12-23 14:25 :00 No 40meq 40 mEq, Oral, ONCE, 1 dose, On Wed12/23/23 at 0730, Routine [facility] magnesium oxide (MAG-OX 400) tablet 800 mg 12-23 13:30: 00 12-23 14:26 :00 No 800mg 800 mg, Oral, ONCE, 1 dose, On Wed12/23/23 at 0730, PATRIZIA [facility] traZODone (DESYREL) tablet 50 mg 12-23 04:00: 00 Yes 50mg 50 mg, Oral, QHS, First dose on Wed12/22/23 at 2200, Until Discontinu ed, Routine [facility] butalbital- acetaminoph en-caff (ESGIC) 50-325-40 mg tablet 1 tablet 12-23 03:56: 38 Yes 1{tbl} 1 tablet, Oral, Q4HPRN, Starting on Wed12/22/23 at 2156, Until Discontinu ed, Routine, headache [facility] acetaminoph en (TYLENOL) tablet 1,000 mg 12-23 03:56: 28 Yes 1000mg 1,000 mg, Oral, Q6HPRN, Starting on Wed12/22/23 at 2156, Until Discontinu ed, Routine, Pain (scale 1-3), Temp > 38 C Univers y [facility] atorvastati n (LIPITOR) tablet 40 mg 12-23 03:00: 00 Yes 40mg 40 mg, Oral, QHS, First dose on Wed12/22/23 at 2100, Until Discontinu ed, Routine [facility] Sliding Scale Insulin - Lispro (HumaLOG) 12-23 02:00: 00 Yes Subcutaneo us, Q4H, First dose (after last modificati on) on Wed12/22/23 at 2000, Until Discontinu ed, Routine [facility] pantoprazol e (PROTONIX) EC tablet 40 mg 12-23 02:00: 00 Yes 40mg 40 mg, Oral, BID, First dose on Wed12/22/23 at 2000, Until Discontinu ed, Routine [facility] lisinopriL (PRINIVIL,Z ESTRIL) tablet 20 mg 12-23 02:00: 00 12-24 01:09 :47 No 20mg 20 mg, Oral, BID, First dose on Wed12/22/23 at 2000, Until Discontinu ed, Routine [facility] insulin glargine (LANTUS U-100) injection 10 Units 12-23 01:45: 00 12-23 01:34 :00 No 10U 10 Units, Subcutaneo us, ONCE, 1 dose, On Wed12/22/23 at 1945, Routine [facility] hydroCHLORO thiazide (ESIDRIX) tablet 25 mg 12-23 01:00: 00 12-24 01:09 :19 No 25mg 25 mg, Oral, DAILY, First dose on Wed12/22/23 at 1900, Until Discontinu ed, [facility] hydral[facility] (APRESOLINE ) injection 10 mg 12-23 00:47: 23 Yes 10mg 10 mg, Slow IV Push, Q4HPRN, Starting on Wed12/22/23 at 1847, Until Discontinu ed, Routine, DBP=>100; SBP=>180 [facility] enoxaparin (LOVENOX) injection 40 mg 12-22 23:00: 00 Yes 40mg 40 mg, Subcutaneo us, DAILY, First dose on Wed12/22/23 at 1700, Until Discontinu ed, Routine [facility] metFORMIN (GLUCOPHAGE ) tablet 1,000 mg 12-22 23:00: 00 Yes 1000mg 1,000 mg, Oral, BID MEALS, First dose on Wed12/22/23 at 1700, Until Discontinu ed, Routine [facility] Sliding Scale Insulin - Lispro (HumaLOG) 12-22 23:00: 00 12-23 00:48 :11 No Subcutaneo us, TID MEALS+HS, First dose on Wed12/22/23 at 1700, Until Discontinu ed, Routine [facility] aspirin tablet 325 mg 12-22 23:00: 00 12-22 23:31 :00 No 325mg 325 mg, Oral, ONCE, 1 dose, On Wed12/22/23 at 1700, Routine [facility] NaCl 0.9% (NS) IV infusion 1,000 mL 12-22 22:30: 00 12-23 00:48 :10 No 1000mL at 125 mL/hr, IV Infusion, CONTINUOUS , Starting on Wed12/22/23 at 1630, Until Wed12/22/23 at 1848, Routine [facility] insulin regular human (HUMULIN R) injection 4 Units 12-22 22:15: 00 12-22 21:55 :00 No 4U 4 Units, Slow IV Push, ONCE, 1 dose, On Wed12/22/23 at 1615, STAT
In dication for insulin: Hyperglyce caleb [facility] NaCl 0.9% (NS) bolus infusion 1,000 mL 12-22 22:15: 00 12-22 21:54 :00 No 1000mL at 999 mL/hr, 1,000 mL, IV Infusion, ONCE, 1 dose, On Wed12/22/23 at 1615, STAT [facility] glucagon (GLUCAGEN DIAGNOSTIC KIT) injection 1 mg 12-22 22:12: 13 Yes 1mg 1 mg, Intramuscu lar, PRN, Starting on Wed12/22/23 at 1612, Until Discontinu ed, PATRIZIA, Blood Glucose < or = 70 mg/dL and patient is NPO, unable to swallow or has mental changes. [facility] dextrose 50 % in water (D50W) injection 25 mL 12-22 22:12: 13 Yes 25mL 25 mL, Slow IV Push, PRN, Starting on Wed12/22/23 at 1612, Until Discontinu ed, PATRIZIA, Blood Glucose < or = 70 mg/dL and patient is NPO, unable to swallow or has mental status changes. [facility] ondansetron (ZOFRAN (PF)) injection 4 mg 12-22 22:12: 06 Yes 4mg 4 mg, Slow IV Push, Q6HPRN, Starting on Wed12/22/23 at 1612, Until Discontinu ed, Routine, Nausea and Vomiting (N/V) [facility] HYDROcodone -acetaminop hen (NORCO 5) 5-325 mg tablet 1 tablet 12-22 22:11: 55 12-24 22:10 :55 No 1{tbl} 1 tablet, Oral, Q6HPRN, Starting on Wed12/22/23 at 1611, Until Wed12/24/23 at 1610, Routine, Pain (scale 4-6) [facility] Aspirin 81 MG oral Chewable Tablet 02-21 00:00: 00 Yes 81mg 1 tablet (81 mg total). Sarahy Varma - Marc byrd Atorvastadavid irving Calcium 40 MG oral Tablet 02-21 00:00: 00 Yes 40mg 1 tablet (40 mg total). Sarahy byrd HYDROcodone -Acetaminop hen 10-325 MG oral Tablet 02-21 00:00: 00 01-03 00:00 :00 No 1{tbl} 1 tablet. Sarahy byrd traMADOL (ULTRAM) 50 mg tablet 01-21 10:43: 26 Yes 50mg Take 50 mg by mouth every 12 (twelve) hours as needed for Pain unrelieved by non-narcot ic analgesics . [facility] CANAGLIFLOZ IN (INVOKANA ORAL) 01-21 10:43: 26 Yes 1000mg Take 1,000 mg by mouth 2 (two) times daily. [facility] Pantoprazol e Sodium 40 MG oral Tablet Delayed Response 01-21 00:00: 00 Yes 40mg Take 1 tablet (40 mg total) by mouth 2 times daily. Sarahy byrd insulin regular human (HUMULIN R) injection 10 Units 01-04 03:30: 00 01-04 03:03 :00 No 10U 10 Units, Slow IV Push, ONCE, 1 dose, On 01/03/23 at 2130, Routine
Indicatio n for insulin: Hyperglyce caleb [facility] iopamidol (ISOVUE 370-500 mL) injection 98 mL 01-04 03:00: 00 01-04 03:00 :00 No [id number] 98mL 98 mL, Intravenou s, ONCE, 1 dose, On 01/03/23 at 2100, Routine [facility] NaCl 0.9% (NS) bolus infusion 1,000 mL 01-04 02:45: 00 01-04 03:56 :00 No 1000mL at 999 mL/hr, 1,000 mL, IV Infusion, ONCE, 1 dose, On 01/03/23 at 2045, PATRIZIA [facility] ipratropium -albuteroL (DUONEB) 0.5 mg-3 mg(2.5 mg base)/3 mL nebulizer solution 3 mL 12-11 01:30: 00 12-11 00:44 :00 No 3mL 3 mL, Inhalation , ONCE, 1 dose, On Marleny 12/10/22 at 1930, [facility] levoFLOXaci n (LEVAQUIN) tablet 750 mg 12-11 01:15: 00 12-11 00:46 :00 No 750mg 750 mg, Oral, ONCE NOW, 1 dose, On Marleny 12/10/22 at 1915, [facility]
Re ason for Anti-Infec tive: Documented Infection< br>Documen jesus Infection Site: Respirator y
Durat ion of Therapy: Other (see Comments) [facility] methylpredn isolone sod succ (SOLU-MEDRO L) injection 125 mg 12-10 23:45: 00 12-10 23:12 :00 No 125mg 125 mg, Slow IV Push, ONCE NOW, 1 dose, On [facility] 12/10/22 at 1745, [facility] ipratropium -albuteroL (DUONEB) 0.5 mg-3 mg(2.5 mg base)/3 mL nebulizer solution 3 mL 12-10 23:45: 00 12-10 23:20 :00 No 3mL 3 mL, Inhalation , ONCE, 1 dose, On Marleny 12/10/22 at 1745, [facility] Albuterol HFA 108 (90 Base) MCG/ACT IN AERS 12-10 00:00: 00 Yes 2{puff} Q.25D Inhale 2 puffs into the lungs every 6 hours as needed. Sarahy byrd predniSONE (DELTASONE) 20 MG oral tablet 12-10 00:00: 00 Yes 60mg Take 3 tablets (60 mg total) by mouth every morning. Sarahy byrd levoFLOXaci n (LEVAQUIN) 500 mg tablet 12-10 00:00: 00 12-24 00:00 :00 No [id number] 500mg Take 1 tablet by mouth every 24 (twenty-fo ur) hours. [facility] dextrometho rphan-guaif enesin 10-100 mg/5 mL solution 12-10 00:00: 00 12-24 00:00 :00 No [id number] 10mL Take 10 mL by mouth every 6 (six) hours as needed for Cough. [facility] FENTanyl PF (SUBLIMAZE (PF)) injection 100 mcg 11-30 13:00: 00 11-30 11:59 :00 No 100ug 100 mcg, Slow IV Push, ONCE, 1 dose, On Wed11/30/22 at 0700, PATRIZIA [facility] iopamidol (ISOVUE 370-500 mL) injection 70 mL 11-30 11:45: 00 11-30 11:45 :00 No [id number] 70mL 70 mL, Intravenou s, ONCE, 1 dose, On Wed11/30/22 at 0545, Routine [facility] FENTanyl PF (SUBLIMAZE (PF)) injection 50 mcg 11-30 11:00: 00 11-30 10:03 :00 No 50ug 50 mcg, Slow IV Push, ONCE, 1 dose, On Wed11/30/22 at 0500, PATRIZIA [facility] NaCl 0.9% (NS) bolus infusion 1,000 mL 11-30 11:00: 00 11-30 11:00 :00 No 1000mL at 999 mL/hr, 1,000 mL, IV Infusion, ONCE, 1 dose, On Wed11/30/22 at 0500, STAT [facility] GlipiZIDE 2.5 MG oral TABLET SR 24 HR 11-30 00:00: 00 Yes 2.5mg Take 1 tablet (2.5 mg total) by mouth daily (with breakfast) . Sarahy byrd ondansetron 4 mg disintegrat ing tablet 11-30 00:00: 00 12-24 00:00 :00 No [id number] 4mg Take 1 tablet by mouth every 8 (eight) hours as needed for Nausea and Vomiting (N/V). [facility] metFORMIN 1,000 mg tablet - 00:00: 00 12-24 00:00 :00 No [id number] 1000mg Take 1 tablet by mouth in the morning and 1 tablet in the evening. Take with meals. [facility] acetaminoph en-codeine 300-30 mg tablet - 00:00: 00 12-08 05:59 :00 No [id number] 1{tbl} Take 1 tablet by mouth every 4 (four) hours as needed for Pain (scale 1-3) for up to 7 days. Indication s: acute pain [facility] insulin regular human (HUMULIN R) injection 10 Units 2021-11 02:00: 00 11-04 01:15 :00 No 10U 10 Units, Slow IV Push, ONCE, 1 dose, On Wed11/03/22 at 2000, Routine
Indicatio n for insulin: Hyperglyce caleb [facility] NaCl 0.9% (NS) bolus infusion 1,000 mL 2021-11 01:00: 00 11-04 02:30 :00 No 1000mL at 999 mL/hr, 1,000 mL, IV Infusion, ONCE, 1 dose, On Wed11/03/22 at 1900, STAT [facility] canaglifloz in-metformi n (INVOKAMET) 150-1,000 mg per tablet 2021-11 00:00: 00 12-04 05:59 :00 No [id number] 1{tbl} Take 1 tablet by mouth in the morning and 1 tablet in the evening. Do all this for [address] [facility] ciprofloxac in HCl (CIPRO) tablet 250 mg 2021-11 01:45: 00 10-29 01:57 :00 No 250mg 250 mg, Oral, ONCE, 1 dose, On Wed10/28/22 at 1945, PATRIZIA
Re ason for Anti-Infec tive: Documented Infection< br>Documen jesus Infection Site: Urine
D uration of Therapy: [address] [facility] magnesium sulfate in water 2 gram/50 mL (4 %) infusion 2 g 2021-11 00:00: 00 10-29 02:33 :00 No 2g 2 g, IV Piggyback, Administer over 60 Minutes, ONCE, 1 dose, On Wed10/28/22 at 1800, Routine [facility] ciprofloxac in HCl 500 mg tablet 2021-11 00:00: 00 12-24 00:00 :00 No [id number] 500mg Take 1 tablet by mouth in the morning and 1 tablet in the evening. [facility] ondansetron 4 mg disintegrat ing tablet 2021-11 00:00: 00 11-30 00:00 :00 No [id number] 4mg Take 1 tablet by mouth every 8 (eight) hours as needed for Nausea and Vomiting (N/V). [facility] acetaminoph en (TYLENOL) tablet 650 mg 2021-11 22:45: 00 10-01 21:59 :00 No 650mg 650 mg, Oral, ONCE, 1 dose, On Wed10/01/22 at 1745, PATRIZIA [facility] amoxicillin -clavulanat e 875-125 mg per tablet 2021-11 00:00: 00 10-09 05:59 :00 No [id number] 1{tbl} Take 1 tablet by mouth every 12 (twelve) hours for [address] [facility] metFORMIN (GLUCOPHAGE ) tablet 500 mg 2021-11 01:45: 00 09-16 00:55 :00 No 500mg 500 mg, Oral, ONCE, 1 dose, On Wed09/15/22 at 2045, Routine [facility] ketorolac (TORADOL) injection 15 mg 2021-11 01:30: 00 09-16 00:55 :00 No 15mg 15 mg, Slow IV Push, ONCE, 1 dose, On Wed09/15/22 at 2030, PATRIZIA [facility] iopamidol (ISOVUE 370-500 mL) injection 65 mL 2021-11 00:15: 09-16 00:15 :00 No [id number] 65mL 65 mL, Intravenou s, ONCE, 1 dose, On Wed09/15/22 at 1915, Routine [facility] metFORMIN 500 mg tablet 2021-11 00:00: 00 10-16 05:59 :00 No [id number] 500mg Take 1 tablet by mouth in the morning and 1 tablet in the evening. Do all this for [address] [facility] insulin regular human (HUMULIN R) injection 10 Units 08-21 02:45: 00 08-21 01:57 :00 No 10U 10 Units, Subcutaneo us, ONCE, 1 dose, On Wed08/20/22 at 2145, Routine
Indicatio n for insulin: Hyperglyce caleb [facility] acetaminoph en (TYLENOL) tablet 1,000 mg 08-21 02:00: 00 08-21 01:20 :00 No 1000mg 1,000 mg, Oral, ONCE, 1 dose, On Wed08/20/22 at 2100, PATRIZIA [facility] ketorolac (TORADOL) injection 15 mg 08-21 02:00: 00 08-21 01:16 :00 No 15mg 15 mg, Slow IV Push, ONCE, 1 dose, On Wed08/20/22 at 2100, Routine [facility] NaCl 0.9% (NS) bolus infusion 1,000 mL 08-21 02:00: 00 08-21 02:51 :00 No 1000mL at 999 mL/hr, 1,000 mL, IV Infusion, ONCE, 1 dose, On Wed08/20/22 at 2100, PATRIZIA [facility] iopamidol (ISOVUE 370-500 mL) injection 55 mL 07-13 23:30: 00 07-13 23:30 :00 No [id number] 55mL 55 mL, Intravenou s, ONCE, 1 dose, On Wed07/13/22 at 1830, Routine [facility] NaCl 0.9% (NS) bolus infusion 1,000 mL 07-13 22:15: 00 07-13 22:52 :00 No 1000mL at 999 mL/hr, 1,000 mL, IV Infusion, ONCE, 1 dose, On Wed07/13/22 at 1715, PATRIZIA [facility] ondansetron 4 mg disintegrat ing tablet 07-13 00:00: 00 12-24 00:00 :00 No [id number] 4mg Take 1 tablet by mouth every 8 (eight) hours as needed for Nausea and Vomiting (N/V). [facility] dicyclomine 20 mg tablet 07-13 00:00: 00 12-24 00:00 :00 No [id number] 20mg Take 1 tablet by mouth 4 (four) times daily as needed for Abdominal pain. [facility] insulin regular human (HUMULIN R) injection 10 Units 05-11 23:00: 00 05-11 22:19 :00 No 10U 10 Units, Subcutaneo us, ONCE, 1 dose, On Wed05/11/22 at 1800, Routine [facility] NaCl 0.9% (NS) bolus infusion 1,000 mL 05-11 22:00: 00 05-11 22:55 :00 No 1000mL at 999 mL/hr, 1,000 mL, IV Infusion, ONCE, 1 dose, [facility]05/11/22 [facility]00[facility] 05-11 00:00: 00 05-19 04:59 :00 No [id number] 300mg Take 1 capsule by mouth 2 (two) times daily for [address] [facility] acetaminoph en (TYLENOL) tablet 650 mg 04-04 12:30: 00 04-04 11:28 :00 No 650mg 650 mg, Oral, ONCE, 1 dose, On Wed04/04/22 [facility] 0730[facility] cefTRIAXone (ROCEPHIN) 1,000 mg in NaCl 0.9% (NS) 50 mL MINI-BAG 04-04 11:15: 00 04-04 11:55 :00 No 1000mg 1,000 mg, IV Piggyback, ONCE, 1 dose, On 04/04/22 at 0615, Administer over 30 Minutes, 50 mL
Reas on for Anti-Infec tive: Documented Infection< br>Documen jesus Infection Site: Urine
D uration of Therapy: Other (see Comments) [facility] levETIRAcet am (KEPPRA) in NACL (ISO-OS) 1,000 mg/100 mL RTU 04-04 10:45: 00 04-04 09:50 :00 No 1000mg 1,000 mg, IV Piggyback, ONCE, 1 dose, On 04/04/22 at 0545, Administer over 15 Minutes, [address] [facility] NaCl 0.9% (NS) IV infusion 1,000 mL 04-04 10:30: 00 Yes 1000mL at 999 mL/hr, Intravenou s, CONTINUOUS , Starting on 04/04/22 at 0530, Until Discontinu ed, Routine [facility] insulin regular human (HUMULIN R) injection 10 Units 04-04 10:30: 00 04-04 09:36 :00 No 10U 10 Units, Subcutaneo us, ONCE, 1 dose, On 04/04/22 at 0530, Routine [facility] glipiZIDE XL 2.5 mg 24 hr tablet 04-04 00:00: 00 11-30 00:00 :00 No [id number] 2.5mg Take 1 tablet by mouth daily with breakfast. [facility] canaglifloz in-metformi n (INVOKAMET) 150-1,000 mg per tablet 04-04 00:00: 00 11-03 00:00 :00 No [id number] 1{tbl} Take 1 tablet by mouth 2 (two) times daily. [facility] cefdinir 300 mg capsule 04-04 00:00: 00 10-01 00:00 :00 No [id number] 300mg Take 1 capsule by mouth every 12 (twelve) hours. [facility] cefTRIAXone (ROCEPHIN) 1,000 mg in NaCl 0.9% (NS) 50 mL MINI-BAG 12-06 17:45: 00 12-06 17:26 :00 No 1000mg 1,000 mg, IV Piggyback, ONCE, 1 dose, On 12/06/21 at 1145, Administer over 30 Minutes, 50 mL
Reas on for Anti-Infec tive: Documented Infection< br>Documen jesus Infection Site: Urine
D uration of Therapy: Other (see Comments) [facility] iopamidol (ISOVUE 370-500 mL) injection 100 mL 12-06 17:15: 00 12-06 15:50 :00 No [id number] 100mL 100 mL, Intravenou s, ONCE, 1 dose, On 12/06/21 at 1115, Routine [facility] cephALEXin (KEFLEX) 500 mg capsule 12-06 00:00: 00 10-01 00:00 :00 No [id number] 500mg Take 1 capsule by mouth 3 (three) times daily. [facility] glipiZIDE XL 2.5 mg 24 hr tablet 05-13 00:00: 00 12-24 00:00 :00 No [id number] 2.5mg Take 1 tablet by mouth daily with breakfast. [facility] INVOKAMET 150-1,000 mg per tablet 06 00:00: 00 11-03 00:00 :00 No [id number] TAKE ONE TABLET BY MOUTH TWICE DAILY [facility] CANAGLIFLOZ IN (INVOKANA ORAL) 2016-11 14:27: 32 Yes 1000mg Take 1,000 mg by mouth 2 (two) times daily. [facility] lovastatin 40 mg tablet 2016-11 00:00: 00 12-24 00:00 :00 No [id number] 40mg Take 1 tablet by mouth at bedtime. [facility] traMADOL (ULTRAM) 50 mg tablet 06-03 10:55: 44 Yes 50mg Take 50 mg by mouth every 12 (twelve) hours as needed for Pain unrelieved by non-narcot ic analgesics . [facility] peg-electro lyte soln [id number] .74 -5.86 gram solution 2015-11 00:00: 00 12-22 00:00 :00 No Take as directed before colonoscop y [facility] pantoprazol e (PROTONIX) 40 mg EC tablet 05-05 00:00: 00 12-22 00:00 :00 No 40mg Take 1 tablet by mouth daily. [facility] Immunizations Ordered Immunization Name Filled Immunization Name Date Status Comments Source Td 2022-10-01 00:00:00 Completed [facility] Td 2022-10-01 00:00:00 Completed [facility] Td 2022-10-01 00:00:00 Completed [facility] TD, NOS 2022-10-01 00:00:00 Completed [facility] TD, NOS 2022-10-01 00:00:00 Completed [facility] TD, NOS 2022-10-01 00:00:00 Completed [facility] TD, NOS 2022-10-01 00:00:00 Completed [facility] TD, NOS 2022-10-01 00:00:00 Completed [facility] TD, NOS 2022-10-01 00:00:00 Completed [facility] TD, NOS 2022-10-01 00:00:00 Completed [facility] Td(adult) unspecified formulation Unknown Completed Sarahy Seybold - External Td(adult) unspecified formulation Unknown Completed Sarahy Seybold - External Td(adult) unspecified formulation Unknown Completed Sarahy Seybold - External Td(adult) unspecified formulation Unknown Completed Sarahy Seybold - External Td(adult) unspecified formulation Unknown Completed Sarahy Seybold - External Td(adult) unspecified formulation Unknown Completed Sarahy Seybold - External TD, NOS Unknown Completed [facility] TD, NOS Unknown Completed [facility] TD, NOS Unknown Completed [facility] TD, NOS Unknown Completed [facility] TD, NOS Unknown Completed [facility] TD, NOS Unknown Completed [facility] Vital Signs Vital Name Observation Time Observation Value Comments S ource Systolic blood pressure 2024-04-13 18:39:00 119 mm[Hg] Sarahy Seybo ld - External Diastolic blood pressure 2024-04-13 18:39:00 74 mm[Hg] Sarahy Seybo ld - External Heart rate 2024-04-13 18:39:00 77 /min Kelse y Seybold - External Body temperature 2024-04-13 18:39:00 37.06 Anila Sarahy Seybold - External Respiratory rate 2024-04-13 18:39:00 16 /min Sarahy Seybold - External Body height 2024-04-13 18:39:00 157.5 cm Quin ey Seybold - External Body weight 2024-04-13 18:39:00 79.379 kg Quin ey Seybold - External BMI 2024-04-13 18:39:00 32.01 kg/m2 Quin ey Seybold - External Oxygen saturation in Arterial blood by Pulse oximetry 2024-04-13 18:39:00 96 /min Sarahy Seybo ld - External Systolic blood pressure 2024-02-15 15:35:00 128 mm[Hg] Sarahy Seybo ld - External Diastolic blood pressure 2024-02-15 15:35:00 60 mm[Hg] Sarahy Seybo ld - External Heart rate 2024-02-15 15:35:00 78 /min Kelse y Seybold - External Body temperature 2024-02-15 15:35:00 36.11 Anila Sarahy Seybold - External Respiratory rate 2024-02-15 15:35:00 16 /min Sarahy Seybold - External Body height 2024-02-15 15:35:00 157.5 cm Quin ey Seybold - External Body weight 2024-02-15 15:35:00 76.204 kg Quin ey Seybold - External BMI 2024-02-15 15:35:00 30.73 kg/m2 Quin ey Seybold - External Oxygen saturation in Arterial blood by Pulse oximetry 2024-02-15 15:35:00 98 /min Sarahy Seybo ld - External Systolic blood pressure 2024-02-11 16:25:00 116 mm[Hg] Sarahy Seybo ld - External Diastolic blood pressure 2024-02-11 16:25:00 74 mm[Hg] Sarahy Seybo ld - External Heart rate 2024-02-11 16:25:00 79 /min Kelse y Seybold - External Respiratory rate 2024-02-11 16:25:00 16 /min Sarahy Seybold - External Body height 2024-02-11 16:25:00 157.5 cm Quin ey Seybold - External Body weight 2024-02-11 16:25:00 73.936 kg Quin ey Seybold - External BMI 2024-02-11 16:25:00 29.81 kg/m2 Quin ey Seybold - External Systolic blood pressure 2024-02-02 14:38:00 126 mm[Hg] Sarahy Seybo ld - External Diastolic blood pressure 2024-02-02 14:38:00 70 mm[Hg] Sarahy Seybo ld - External Heart rate 2024-02-02 14:38:00 87 /min Lavellese y Seybold - External Body temperature 2024-02-02 14:38:00 36.39 Anila Sarahy Seybold - External Respiratory rate 2024-02-02 14:38:00 15 /min Sarahy Seybold - External Body height 2024-02-02 14:38:00 157.5 cm Quin ey Seybold - External Body weight 2024-02-02 14:38:00 75.751 kg Quin ey Seybold - External BMI 2024-02-02 14:38:00 30.54 kg/m2 Quin ey Seybold - External Oxygen saturation in Arterial blood by Pulse oximetry 2024-02-02 14:38:00 98 /min Sarahy Seybo ld - External Systolic blood pressure 2024-01-03 16:37:00 125 mm[Hg] Sarahy Seybo ld - External Diastolic blood pressure 2024-01-03 16:37:00 87 mm[Hg] Sarahy Seybo ld - External Heart rate 2024-01-03 16:37:00 82 /min Kelse y Seybold - External Body temperature 2024-01-03 16:37:00 36.28 Anila Sarahy Varma - External Respiratory rate 2024-01-03 16:37:00 20 /min Sarahy Varma - External Body height 2024-01-03 16:37:00 157.5 cm Quin Varma - External Body weight 2024-01-03 16:37:00 74.844 kg Quin [place] Seybold - External BMI 2024-01-03 16:37:00 30.18 kg/m2 Quin Varma - External Oxygen saturation in Arterial blood by Pulse oximetry 2024-01-03 16:37:00 98 /min Sarahy Godinez ld - External Heart rate 2023-12-24 18:00:00 84 /min [facility] Respiratory rate 2023-12-24 18:00:00 18 /min [facility] Oxygen saturation in Arterial blood by Pulse oximetry 2023-12-24 18:00:00 98 /min [facility] Systolic blood pressure 2023-12-24 17:19:00 98 mm[Hg] [facility] Diastolic blood pressure 2023-12-24 17:19:00 55 mm[Hg] [facility] Body temperature 2023-12-24 17:19:00 35.78 Anila [facility] Body weight 2023-12-24 10:16:00 74.98 kg [facility] BMI 2023-12-24 10:16:00 30.23 kg/m2 [facility] Body height 2023-12-22 23:11:00 157.5 cm [facility] Systolic blood pressure 2023-01-21 16:42:00 135 mm[Hg] [facility] Diastolic blood pressure 2023-01-21 16:42:00 85 mm[Hg] [facility] Heart rate 2023-01-21 16:42:00 79 /min [facility] Body temperature 2023-01-21 16:42:00 36.33 Anila [facility] Respiratory rate 2023-01-21 16:42:00 16 /min [facility] Body height 2023-01-21 16:42:00 157.5 cm [facility] Body weight 2023-01-21 16:42:00 73.619 kg [facility] BMI 2023-01-21 16:42:00 29.69 kg/m2 [facility] Oxygen saturation in Arterial blood by Pulse oximetry 2023-01-21 16:42:00 99 /min [facility] Systolic blood pressure 2023-01-04 03:03:00 168 mm[Hg] [facility] Diastolic blood pressure 2023-01-04 03:03:00 69 mm[Hg] [facility] Heart rate 2023-01-04 03:03:00 84 /min Unive [facility] Respiratory rate 2023-01-04 03:03:00 20 /min [facility] Oxygen saturation in Arterial blood by Pulse oximetry 2023-01-04 03:03:00 97 /min [facility] Body temperature 2023-01-04 01:40:00 37.39 Anila [facility] Body height 2023-01-04 01:40:00 157.5 cm [facility] Body weight 2023-01-04 01:40:00 71.215 kg [facility] BMI 2023-01-04 01:40:00 28.72 kg/m2 [facility] Respiratory rate 2022-12-11 00:54:00 22 /min [facility] Oxygen saturation in Arterial blood by Pulse oximetry 2022-12-11 00:54:00 100 /min [facility] Systolic blood pressure 2022-12-11 00:30:00 144 mm[Hg] [facility] Diastolic blood pressure 2022-12-11 00:30:00 78 mm[Hg] [facility] Heart rate 2022-12-11 00:30:00 99 /min [facility]ive [facility] Body temperature 2022-12-10 22:24:00 37.11 Anila [facility] Body height 2022-12-10 22:24:00 157.5 cm [facility] Body weight 2022-12-10 22:24:00 71.215 kg [facility] BMI 2022-12-10 22:24:00 28.72 kg/m2 [facility] Systolic blood pressure 2022-11-30 12:06:00 122 mm[Hg] [facility] Diastolic blood pressure 2022-11-30 12:06:00 77 mm[Hg] [facility] Heart rate 2022-11-30 12:06:00 64 /min Unive [facility] Respiratory rate 2022-11-30 12:06:00 13 /min [facility] Oxygen saturation in Arterial blood by Pulse oximetry 2022-11-30 12:06:00 95 /min [facility] Body temperature 2022-11-30 09:55:00 36.72 Anila [facility] Body height 2022-11-30 09:55:00 157.5 cm [facility] Body weight 2022-11-30 09:55:00 65.772 kg [facility] BMI 2022-11-30 09:55:00 26.52 kg/m2 [facility] Systolic blood pressure 2022-11-03 23:02:00 148 mm[Hg] [facility] Diastolic blood pressure 2022-11-03 23:02:00 78 mm[Hg] [facility] Heart rate 2022-11-03 23:02:00 87 /min [facility] Body temperature 2022-11-03 23:02:00 37.44 Anila [facility] Respiratory rate 2022-11-03 23:02:00 18 /min [facility] Body height 2022-11-03 23:02:00 157.5 cm [facility] Body weight 2022-11-03 23:02:00 65.772 kg [facility] BMI 2022-11-03 23:02:00 26.52 kg/m2 [facility] Oxygen saturation in Arterial blood by Pulse oximetry 2022-11-03 23:02:00 100 /min [facility] Systolic blood pressure 2022-10-29 01:23:00 154 mm[Hg] [facility] Diastolic blood pressure 2022-10-29 01:23:00 78 mm[Hg] [facility] Heart rate 2022-10-29 01:23:00 66 /min [facility] Respiratory rate 2022-10-29 01:23:00 18 /min [facility] Oxygen saturation in Arterial blood by Pulse oximetry 2022-10-29 01:23:00 100 /min [facility] Body temperature 2022-10-28 21:44:00 37.5 Anila [facility] Body height 2022-10-28 21:44:00 157.5 cm [facility] Body weight 2022-10-28 21:44:00 65.772 kg [facility] BMI 2022-10-28 21:44:00 26.52 kg/m2 [facility] Systolic blood pressure 2022-10-01 21:51:00 174 mm[Hg] [facility] Diastolic blood pressure 2022-10-01 21:51:00 77 mm[Hg] [facility] Heart rate 2022-10-01 21:51:00 80 /min [facility]ive [facility] Body temperature 2022-10-01 21:51:00 37.11 [facility] Respiratory rate 2022-10-01 21:51:00 18 /min [facility] Body weight 2022-10-01 21:51:00 65.772 kg [facility] BMI 2022-10-01 21:51:00 26.52 kg/m2 [facility] Oxygen saturation in Arterial blood by Pulse oximetry 2022-10-01 21:51:00 97 /min [facility] Systolic blood pressure 2022-09-16 01:15:00 154 mm[Hg] [facility] Diastolic blood pressure 2022-09-16 01:15:00 84 mm[Hg] [facility] Heart rate 2022-09-16 01:15:00 65 /min [facility] Oxygen saturation in Arterial blood by Pulse oximetry 2022-09-16 01:15:00 99 /min [facility] Body temperature 2022-09-15 22:45:00 37.11 [facility] Respiratory rate 2022-09-15 21:36:00 18 /min [facility] Body weight 2022-09-15 21:36:00 68.04 kg [facility] BMI 2022-09-15 21:36:00 27.44 kg/m2 [facility] Systolic blood pressure 2022-08-21 02:30:00 159 mm[Hg] [facility] Diastolic blood pressure 2022-08-21 02:30:00 83 mm[Hg] [facility] Heart rate 2022-08-21 02:30:00 77 /min [facility] Respiratory rate 2022-08-21 02:30:00 17 /min [facility] Oxygen saturation in Arterial blood by Pulse oximetry 2022-08-21 02:30:00 96 /min [facility] Body temperature 2022-08-21 01:04:00 37.56 Anila [facility] Body height 2022-08-21 01:04:00 157.5 cm [facility] Body weight 2022-08-21 01:04:00 68.04 kg [facility] BMI 2022-08-21 01:04:00 27.44 kg/m2 [facility] Systolic blood pressure 2022-07-13 22:20:00 135 mm[Hg] [facility] Diastolic blood pressure 2022-07-13 22:20:00 60 mm[Hg] [facility] Heart rate 2022-07-13 22:20:00 77 /min [facility] 2022-07-13 22:20:00 18 /min [facility] Oxygen saturation in Arterial blood by Pulse oximetry 2022-07-13 22:20:00 98 /min [facility] Body temperature 2022-07-13 20:44:00 37.22 Anila [facility] Body height 2022-07-13 20:44:00 157.5 cm [facility] Body weight 2022-07-13 20:44:00 72.258 kg [facility] BMI 2022-07-13 20:44:00 29.14 kg/m2 [facility] Systolic blood pressure 2022-05-11 22:00:00 123 mm[Hg] [facility] Diastolic blood pressure 2022-05-11 22:00:00 66 mm[Hg] [facility] Heart rate 2022-05-11 22:00:00 76 /min [facility] Respiratory rate 2022-05-11 22:00:00 17 /min [facility] Oxygen saturation in Arterial blood by Pulse oximetry 2022-05-11 22:00:00 97 /min [facility] Body temperature 2022-05-11 20:43:00 36.44 Anila [facility] Body weight 2022-05-11 20:43:00 65.772 kg [facility] BMI 2022-05-11 20:43:00 26.52 kg/m2 [facility] Systolic blood pressure 2022-04-04 12:00:00 130 mm[Hg] [facility] Diastolic blood pressure 2022-04-04 12:00:00 75 mm[Hg] [facility] Heart rate 2022-04-04 12:00:00 69 /min [facility]ive [facility] Respiratory rate 2022-04-04 12:00:00 17 /min [facility] Oxygen saturation in Arterial blood by Pulse oximetry 2022-04-04 12:00:00 95 /min [facility] Body temperature 2022-04-04 09:00:00 37.28 Anila [facility] Systolic blood pressure 2021-12-06 17:00:00 134 mm[Hg] [facility] Diastolic blood pressure 2021-12-06 17:00:00 77 mm[Hg] [facility] Heart rate 2021-12-06 17:00:00 62 /min [facility] Respiratory rate 2021-12-06 17:00:00 16 /min [facility] Oxygen saturation in Arterial blood by Pulse oximetry 2021-12-06 17:00:00 98 /min [facility] Body temperature 2021-12-06 14:17:00 37.28 Anila [facility] Body weight 2021-12-06 14:17:00 65.772 kg [facility] BMI 2021-12-06 14:17:00 26.52 kg/m2 [facility] Systolic blood pressure 2021-12-06 08:13:00 141 mm[Hg] [facility] Diastolic blood pressure 2021-12-06 08:13:00 69 mm[Hg] [facility] Oxygen saturation in Arterial blood by Pulse oximetry 2021-12-06 08:13:00 98 /min [facility] Heart rate 2021-12-06 07:00:00 74 /min [facility] Respiratory rate 2021-12-06 07:00:00 18 /min [facility] Body temperature 2021-12-06 03:56:00 36.61 Anila [facility] Body height 2021-12-06 03:56:00 157.5 cm [facility] Body weight 2021-12-06 03:56:00 65.772 kg [facility] BMI 2021-12-06 03:56:00 26.52 kg/m2 [facility] Procedures Procedure Date / Time Performed Performing Clinician Source ASSIGNMENT OF BENEFITS 2024-01-24 18:18:49 Docto r Unassigned, [place] [facility] POCT GLUCOSE (AUTOMATED) 2023-12-24 19:45:00 Dimple Hooper [facility] POCT GLUCOSE (AUTOMATED) 2023-12-24 17:18:00 Dimple Hooper [facility] MAGNESIUM 2023-12-24 10:21:[address] [facility] BASIC METABOLIC PANEL (NA, K, CL, CO2, GLUCOSE, BUN, CREATININE, CA) 2023-12-24 10:21:00 Jose Davies [facility] POCT GLUCOSE (AUTOMATED) 2023-12-24 10:18:00 Dimple Hooper [facility] POCT GLUCOSE (AUTOMATED) 2023-12-24 06:26:00 Dimple Hooper [facility] POCT GLUCOSE (AUTOMATED) 2023-12-24 03:30:00 Dimple Hooper [facility] POCT GLUCOSE (AUTOMATED) 2023-12-23 22:47:00 Dimple Hooper [facility] POCT GLUCOSE (AUTOMATED) 2023-12-23 17:54:00 Dimple Hooper [facility] TRANSTHORACIC ECHO (TTE) COMPLETE 2023-12-23 15:11:00 Guanakito Hooper [facility] POCT GLUCOSE (AUTOMATED) 2023-12-23 13:51:00 Dimple Hooper [facility] MAGNESIUM 2023-12-23 10:22:[facility]-23 10:22:00 Rufus [facility] BASIC METABOLIC PANEL (NA, K, CL, CO2, GLUCOSE, BUN, CREATININE, CA) 2023-12-23 10:22:00 [facility] LIPID PANEL (19331)(TOTAL CHOLESTEROL, TRIGLYCERIDES, HDL) 2023-12-23 10:22:00 [facility] 2023-12-23 10:11:00 Dimple Hooper [facility] POCT GLUCOSE (AUTOMATED) 2023-12-23 05:49:00 Dimple Hooper [facility] CRITICAL CARE 2023-12-23 02:30:23 Jonathan Baez [facility] POCT GLUCOSE (AUTOMATED) 2023-12-23 01:08:00 Dimple Hooper [facility] TROPONIN I 2023-12-22 23:30:00 Guanakito Hooper [facility] POCT GLUCOSE (AUTOMATED) 2023-12-22 23:07:00 Dimple Hooper [facility] POCT GLUCOSE (AUTOMATED) 2023-12-22 22:31:00 Dimple Hooper [facility] XR CHEST 1 VW 2023-12-22 20:54:26 Jonathan Baez [facility] HB ECG ROUTINE & RHYTHM STRIP 2023-12-22 20:08:14 Jonathan Baez [facility] LIPASE 2023-12-22 20:05:00 Jonathan Baez [facility] TROPONIN I 2023-12-22 20:05:[address] [facility] THYROID STIMULATING HORMONE 2023-12-22 20:05:00 Guanakito Hooper [facility] COMP. METABOLIC PANEL ([id number]) 2023-12-22 20:05:00 Jonathan Baez [facility] CBC WITH DIFF 2023-12-22 20:05:00 Jonathan Baez [facility] GLYCOSYLATED HEMOGLOBIN (A1C) 2023-12-22 20:05:00 Guanakito Hooper [facility] N-TERMINAL PRO-BNP 2023-12-22 20:05:00 Jonathan Baez [facility] CT HEAD WO CONTRAST 2023-12-22 20:01:00 Yessy Baez [facility] NOTICE OF PRIVACY PRACTICES 2023-12-22 18:56:44 Doctor Unassigned, [place] [facility] CONSENT/REFUSAL FOR DIAGNOSIS AND TREATMENT 2023-12-22 18:56:08 Doctor Unassigned, [place] [facility] ASSIGNMENT OF BENEFITS 2023-01-21 16:31:02 Docto r Unassigned, [place] [facility] POCT GLUCOSE (AUTOMATED) 2023-01-04 03:43:00 Charlette Holloway [facility] POCT GLUCOSE (AUTOMATED) 2023-01-04 03:03:00 Charlette Holloway [facility] CT ABDOMEN PELVIS W CONTRAST 2023-01-04 02:44:37 Charlette Holloway [facility] LIPASE 2023-01-04 02:10:00 [facility] COMP. METABOLIC PANEL ([id number]) 2023-01-04 02:10:00 Charlette Holloway [facility] CBC WITH DIFF 2023-01-04 02:10:00 [facility] 2023-01-04 02:10:00 [facility] CONSENT/REFUSAL FOR DIAGNOSIS AND TREATMENT 2023-01-04 01:25:15 Doctor Unassigned, [place] [facility] TROPONIN I 2022-12-10 23:09:00 [facility] B[facility] COMP. METABOLIC PANEL ([id number]) 2022-12-10 23:09:00 Jonathan Baez [facility] CBC WITH DIFF 2022-12-10 23:09:00 Jonathan Baez [facility] PROTHROMBIN TIME / INR 2022-12-10 23:09:00 Anshul Baez [facility] ACTIVATED PARTIAL THRMPLAS SUNIL 2022-12-10 23:09:00 Jonathan Baez [facility] RAPID INFLUENZA A/B 2022-12-10 23:09:00 Yessy Baez [facility] N-TERMINAL PRO-BNP 2022-12-10 23:09:00 Jonathan Baez [facility] COVID-19 (ID NOW RAPID TESTING) 2022-12-10 23:09:00 Jonathan Baez [facility] XR CHEST 1 VW 2022-12-10 23:04:00 [facility] 2022-11-30 12:09:00 Arina Burch [facility] URINALYSIS 2022-11-30 11:57:00 Jenny Burch [facility] CT ABDOMEN PELVIS W CONTRAST 2022-11-30 10:46:34 Jenny Burch [facility] EKG-12 LEAD 2022-11-30 10:04:36 Jenny Burch [facility] LIPASE 2022-11-30 09:57:00 Jenny Burch [facility] TROPONIN I 2022-11-30 09:57:00 Jenny Burch [facility] COMP. METABOLIC PANEL ([id number]) 2022-11-30 09:57:00 Jenny Burch [facility] CBC WITH DIFF 2022-11-30 09:57:00 Jenny Burch [facility] POCT GLUCOSE (AUTOMATED) 2022-11-30 09:51:00 Doc tor Unassigned, [place] [facility] POCT GLUCOSE (AUTOMATED) 2022-11-04 02:29:00 Crhistine Valencia [facility] TROPONIN I 2022-11-04 00:53:00 Connie Valencia [facility] BASIC METABOLIC PANEL (NA, K, CL, CO2, GLUCOSE, BUN, CREATININE, CA) 2022-11-04 00:53:00 Connie Valencia [facility] CBC WITH DIFF 2022-11-04 00:53:[address] [facility] URINALYSIS 2022-11-04 00:53:[address] [facility] POCT GLUCOSE (AUTOMATED) 2022-11-04 00:46:00 Christine Valencia [facility] NOTICE OF PRIVACY PRACTICES 2022-11-03 22:47:19 Doctor Unassigned, [place] [facility] CONSENT/REFUSAL FOR DIAGNOSIS AND TREATMENT 2022-11-03 22:46:47 Doctor Unassigned, [place] [facility] URINALYSIS 2022-10-28 23:37:00 Jane Courtney [facility] XR CHEST 1 VW 2022-10-28 23:01:06 Jane Courtney [facility] LIPASE 2022-10-28 21:52:00 Jane Courtney [facility] MAGNESIUM 2022-10-28 21:52:00 Jane Courtney [facility] TROPONIN I 2022-10-28 21:52:00 Jane Courtney [facility] COMP. METABOLIC PANEL ([id number]) 2022-10-28 21:52:00 Jane Courtney [facility] CBC WITH DIFF 2022-10-28 21:52:00 Jane Courtney [facility] RAPID STREP SCREEN FOR GROUP A 2022-10-28 21:47:00 Jane Courtney [facility] RAPID INFLUENZA A/B 2022-10-28 21:47:00 Jane Courtney [facility] CONSENT/REFUSAL FOR DIAGNOSIS AND TREATMENT 2022-10-01 21:40:59 Doctor Unassigned, [place] [facility] POCT GLUCOSE(AGE >30DAYS) 2022-09-16 00:56:00 Jane Courtney [facility] POCT GLUCOSE (AUTOMATED) 2022-09-16 00:54:00 Jane Courtney [facility] CT ABDOMEN PELVIS W CONTRAST 2022-09-15 23:22:40 Jane Courtney [facility] LIPASE 2022-09-15 21:53:00 Amadou Doty [facility] TROPONIN I 2022-09-15 21:53:00 [facility] Court[facility] COMP. METABOLIC PANEL ([id number]) 2022-09-15 21:53:00 Amadou Doty [facility] CBC WITH DIFF 2022-09-15 21:53:00 Amadou Doty [facility] URINALYSIS 2022-09-15 21:53:00 Amadou Doty [facility] POCT GLUCOSE (AUTOMATED) 2022-08-21 01:57:00 Kyung Hernandez [facility] BASIC METABOLIC PANEL (NA, K, CL, CO2, GLUCOSE, BUN, CREATININE, CA) 2022-08-21 01:15:00 [facility] CBC WITH DIFF 2022-08-21 01:15:[address] [facility] CT ABDOMEN PELVIS W CONTRAST 2022-07-13 22:19:12 Argelia Carson [facility] LIPASE 2022-07-13 20:55:00 [facility] MAGNESIUM 2022-07-13 20:55:00 Charlette Holloway [facility] COMP. METABOLIC PANEL ([id number]) 2022-07-13 20:55:00 Charlette Holloway [facility] CBC WITH DIFF 2022-07-13 20:55:00 [facility] URINALYSIS 2022-07-13 20:55:00 [facility] POCT GLUCOSE (AUTOMATED) 2022-05-11 22:54:00 Joy Mirza [facility] POCT GLUCOSE (AUTOMATED) 2022-05-11 22:16:00 Joy Mirza [facility] XR CHEST 1 VW 2022-05-11 21:12:40 Jc Mirza [facility] LIPASE 2022-05-11 21:10:[address] COMP. METABOLIC PANEL ([id number]) 2022-05-11 21:10:00 Jc Mirza [facility] CBC WITH DIFF 2022-05-11 21:10:00 Jc Mirza [facility] URINALYSIS 2022-05-11 21:10:[address] [facility] N-TERMINAL PRO-BNP 2022-05-11 21:10:00 Jc Mirza [facility] COVID-19 (ID NOW RAPID TESTING) 2022-05-11 21:10:00 Jc Mirza [facility] POCT GLUCOSE (AUTOMATED) 2022-04-04 11:05:00 Jackson Hartman [facility] CT HEAD WO CONTRAST 2022-04-04 10:39:30 Minh Hartman [facility] URINE DRUG (IMMUNOASSAY) - COMPREHENSIVE DRUG SCREEN 2022-04-04 09:51:00 Minh Hartman [facility] URINALYSIS 2022-04-04 09:51:00 Minh Hartman [facility] RAPID INFLUENZA A/B 2022-04-04 09:51:00 Minh Hartman [facility] COVID-19 (ID NOW RAPID TESTING) 2022-04-04 09:51:00 Minh Hartman [facility] MAGNESIUM 2022-04-04 09:17:00 Minh Hartman [facility] COMP. METABOLIC PANEL ([id number]) 2022-04-04 09:17:00 Minh Hartman [facility] CBC WITH DIFF 2022-04-04 09:17:00 Minh Hartman [facility] POCT GLUCOSE (AUTOMATED) 2022-04-04 09:01:00 Jackson Hartman [facility] NOTICE OF PRIVACY PRACTICES 2022-04-04 08:54:31 Doctor Unassigned, [place] [facility] CONSENT/REFUSAL FOR DIAGNOSIS AND TREATMENT 2022-04-04 08:54:09 Doctor Unassigned, [place] [facility] XR CHEST 1 VW 2021-12-06 16:10:54 Jonathan Baez [facility] CT ABDOMEN PELVIS W CONTRAST 2021-12-06 16:03:48 Jonathan Baez [facility] CT HEAD WO CONTRAST 2021-12-06 16:03:29 Yessy Baez [facility] URINALYSIS 2021-12-06 15:17:[address] [facility] URINE DRUG (IMMUNOASSAY) - COMPREHENSIVE DRUG SCREEN W/O REFLEX 2021-12-06 15:17:00 Jonathan Baez [facility] COVID-19 (ID NOW RAPID TESTING) 2021-12-06 14:33:00 Jonathan Baez [facility] AC PANEL 21 + LACTIC ACID 2021-12-06 14:32:00 Jonathan Baez [facility] PROTHROMBIN TIME / INR 2021-12-06 14:31:00 Anshul Baez [facility] ACTIVATED PARTIAL THRMPLAS SUNIL 2021-12-06 14:31:00 Jonathan Baez [facility] N-TERMINAL PRO-BNP 2021-12-06 14:31:00 Jonathan Baez [facility] TROPONIN I 2021-12-06 14:31:[address] [facility] COMP. METABOLIC PANEL ([id number]) 2021-12-06 14:31:00 Jonathan Baez [facility] SALICYLATE 2021-12-06 14:31:00 Jonathan Baez [facility] ETHANOL 2021-12-06 14:31:[address] [facility] CBC WITH DIFF 2021-12-06 14:31:00 Jonathan Baez [facility] EKG-12 LEAD 2021-12-06 08:02:36 Minh Hartman [facility] LIPASE 2021-12-06 05:07:00 Minh Hartman [facility] TROPONIN I 2021-12-06 05:07:00 Minh Hartman [facility] COMP. METABOLIC PANEL ([id number]) 2021-12-06 05:07:00 Minh Hartman [facility] CBC WITH DIFF 2021-12-06 04:20:00 Minh Hartman [facility] Encounters Start Date/Time End Date/Time Encounter Type Admission Type Attending Clinicians Care Facility Care Department Encounter ID Source 2023-01-25 16:07:35 Outpatient MIREYA PANDEY [facility] [id number] [facility] 2024-10-11 12:00:00 2024-10-11 12:00:00 Outpatient HUSSAIN BRAUN [id number] [facility] 2024-07-25 14:00:00 2024-07-25 14:00:00 Outpatient RESHMA ROBERTS [id number] [facility] 2024-07-14 09:15:00 2024-07-14 09:15:00 Outpatient MARIELLA PADILLA [id number] [facility] 2024-06-06 14:40:00 2024-06-06 14:40:00 Outpatient ABILIO MOLINA [id number] [facility] 2024-06-05 15:00:00 2024-06-05 15:00:00 Outpatient SARAHY GÓMEZ [id number] [facility] 2024-06-05 10:00:00 2024-06-05 10:00:00 Outpatient ABILIO MOLINA [id number] [facility] 2024-05-26 16:00:00 2024-05-26 16:00:00 Outpatient BERONICA JAMES [id number] [facility] 2024-05-19 10:15:00 2024-05-19 10:15:00 Outpatient DESHAWN VILLA SARAHY GÓMEZ [id number] [facility] 2024-05-04 00:00:00 2024-05-04 00:00:00 Outpatient PREZAS, MARIELLA CASTANEDAJENNIFFER GÓMEZ [id number] [facility] 2024-05-03 14:30:00 2024-05-03 14:30:00 Outpatient SARAHY GÓMEZ [id number] [facility] 2024-05-01 14:30:00 2024-05-01 14:30:00 Outpatient SARAHY GÓMEZ [id number] [facility] 2024-05-01 00:00:00 2024-05-01 00:00:00 Outpatient PREZAS, MARIELLA SARAHY GÓMEZ [id number] [facility] 2024-05-01 00:00:00 2024-05-01 00:00:00 Outpatient PREZAS, MARIELLA SARAHY GÓMEZ [id number] [facility] 2024-04-21 00:00:00 2024-04-21 00:00:00 Outpatient PREZAS, MARIELLA SARAHY GÓMEZ [id number] [facility] 2024-04-14 00:00:00 2024-04-14 00:00:00 Outpatient BERONICA JAMES [id number] [facility] 2024-04-13 15:00:00 2024-04-13 15:00:00 Outpatient LAB90 SARAHY GÓMEZ [id number] [facility] 2024-04-13 14:30:00 2024-04-13 14:30:00 Outpatient BERONICA JAMES [id number] [facility] 2024-04-05 10:15:00 2024-04-05 10:15:00 Outpatient PREZAS, MARIELLA SARAHY GÓMEZ [id number] [facility] 2024-03-31 15:30:00 2024-03-31 15:30:00 Outpatient PREZAS, MARIELLA SARAHY GÓMEZ [id number] [facility] 2024-03-22 13:45:00 2024-03-22 13:45:00 Outpatient LAB90 SARAHY GÓMEZ [id number] [facility] 2024-03-17 00:00:00 2024-03-17 00:00:00 Outpatient PREZAMARIELLA Lopez SARAHY GÓMEZ [id number] [facility] 2024-03-14 00:00:00 2024-03-14 00:00:00 Outpatient PREZAMARIELLA Lopez SARAHY G[facility]MEZ [id number] [facility] 2024-03-10 00:00:00 2024-03-10 00:00:00 Outpatient JACOB BERONICA SARAHY GÓMEZ [id number] [facility] 2024-03-09 13:40:00 2024-03-09 13:40:00 Outpatient ANGLEI KEEN [id number] [facility] 2024-03-09 11:30:00 2024-03-09 11:30:00 Outpatient HOLLY VILLANUEVA [id number] [facility] 2024-03-07 14:00:00 2024-03-07 14:00:00 Out[facility]OVELACE [id number] [facility] 2024-03-02 09:00:00 2024-03-02 09:00:00 Outpatient RICHHOLLY [id number] [facility] 2024-03-01 08:30:00 2024-03-01 08:30:00 Outpatient RICHHOLLY [id number] [facility] 2024-03-01 00:00:00 2024-03-01 00:00:00 Outpatient PREZAMARIELLA Lopez SARAHY GÓMEZ [id number] [facility] 2024-02-28 09:30:00 2024-02-28 09:30:00 Outpatient RESHMA ANAND [id number] [facility] 2024-02-25 15:20:00 2024-02-25 15:20:00 Outpatient DINH LOPEZ [id number] [facility] 2024-02-22 13:30:00 2024-02-22 13:30:00 Outpatient ANGELI KEEN [id number] [facility] 2024-02-16 15:00:00 2024-02-16 15:00:00 Outpatient SARAHY GÓMEZ [id number] [facility] 2024-02-16 09:15:00 2024-02-16 09:15:00 Outpatient SARAHY GÓMEZ [id number] [facility]y [facility] 2024-02-15 11:00:00 2024-02-15 11:00:00 Outpatient PATRICIONESTOR, MARIELLA SARAHY GÓMEZ [id number] [facility] 2024-02-11 15:00:00 2024-02-11 15:00:00 Outpatient HOLLY VILLANUEVA SARAHY GÓMEZ [id number] [facility] 2024-02-11 11:30:00 2024-02-11 11:30:00 Outpatient DESHAWN VILLA SARAHY GÓMEZ [id number] [facility] 2024-02-11 00:00:00 2024-02-11 00:00:00 Outpatient MARIELLA PADILLA [id number] [facility] 2024-02-09 16:05:00 2024-02-09 16:05:00 Outpatient SARAHY GÓMEZ [id number] [facility] 2024-02-09 15:40:00 2024-02-09 15:40:00 Outpatient STEW GAGE SARAHY GÓMEZ [id number] [facility] 2024-02-09 00:00:00 2024-02-09 00:00:00 Outpatient GINUR SARAHY GÓMEZ [id number] [facility] 2024-02-08 12:00:00 2024-02-08 12:00:00 Outpatient LAB90 SARAHY GÓMEZ [id number] [facility] 2024-02-08 10:25:00 2024-02-08 10:25:00 Outpatient LAB90 SARAHY GÓMEZ [id number] [facility] 2024-02-08 00:00:00 2024-02-08 00:00:00 Outpatient PRENESTOR, MARIELLA GÓMEZ [id number] [facility] 2024-02-08 00:00:00 2024-02-08 00:00:00 Outpatient PREZAS, MARIELLA SARAHY SARAHY [id number] [facility] 2024-02-07 15:30:00 2024-02-07 15:30:00 Outpatient JOHNATHON LOVELACE SARAHY [id number] [facility] 2024-02-04 00:00:00 2024-02-04 00:00:00 Outpatient PREZAMARIELLA Lopez SARAHY [id number] [facility] 2024-02-03 00:00:00 2024-02-03 00:00:00 Outpatient PREZAMARIELLA Lopez SARAHY [id number] [facility] 2024-02-02 09:35:00 2024-02-02 09:35:00 Outpatient LAB90 SARAHY GÓMEZ [id number] [facility] 2024-02-02 08:45:00 2024-02-02 08:45:00 Outpatient MARIELLA PADILLA SARAHY GÓMEZ [id number] [facility] 2024-01-24 14:00:00 2024-01-24 14:30:00 Office Visit Rodney Coleman [facility] ..840.114 [id number] [facility] 2024-01-24 14:00:00 2024-01-24 14:00:00 Outpatient R APOLLO COLEMANSSEY [facility] [id number] [facility] 2024-01-24 00:00:00 2024-01-24 00:00:00 Orders Only Doctor Unassigned, [place] [facility] ..840.114 [id number] [facility] 2024-01-24 00:00:00 2024-01-24 00:00:00 Telephone Apollo Colemanssey Joy [facility] 1..840.114 [id number] [facility] 2024-01-18 15:00:00 2024-01-18 15:00:00 Outpatient SARAHY GÓMEZ [id number] [facility] 2024-01-17 08:00:00 2024-01-17 08:00:00 Outpatient ROSI MAYORGA SARAHY GÓMEZ [id number] [facility] 2024-01-10 07:30:00 2024-01-10 07:30:00 Outpatient MAITE SHEFFIELD SARAHY GÓMEZ [id number] [facility] 2024-01-03 11:45:00 2024-01-03 11:45:00 Outpatient LABKevin SARAHY GÓMEZ [id number] [facility] 2024-01-03 11:00:00 2024-01-03 11:00:00 Outpatient BERONICA JAMES [id number] [facility] 2024-01-03 00:00:00 2024-01-03 00:00:00 Outpatient CHARLENE SOLIS [facility] [id number] [facility] 2023-12-27 00:00:00 2023-12-27 00:00:[address] [facility] [id number] [facility] 2023-12-22 13:11:00 2023-12-24 14:58:00 Outpatient GUANAKITO CENTENO [facility] [id number] [facility] 2023-12-22 13:11:00 2023-12-24 14:58:00 Emergency Jonathan Baez Jelani [facility] .[id number] [id number] [facility] 2023-12-23 09:30:00 2023-12-23 09:30:00 Outpatient HOLLY VILLANUEVA [id number] [facility] 2023-12-23 00:00:00 2023-12-23 00:00:00 Outpatient HOLLY VILLANUEVA SARAHY GÓMEZ [id number] Sarahy Marquesharleen 2023-12-03 09:30:00 2023-12-03 09:30:00 Outpatient TIMURJOHNATHON Byrd SARAHY GÓMEZ [id number] Sarahy Varma 2023-11-03 00:00:00 2023-11-03 00:00:00 Outpatient TRENTMARIELLA Lopez SARAHY GÓMEZ [id number] [facility] 2023-10-06 14:00:00 2023-10-06 14:00:00 Outpatient HOLLY VILLANUEVA SARAHY GÓMEZ [id number] [facility] 2023-10-05 00:00:00 2023-10-05 00:00:00 Outpatient RANDY MARIELLA SARAHY GÓMEZ [id number] [facility] 2023-06-28 00:00:00 2023-06-28 00:00:00 Outpatient PROVIDERANDREZ [id number] [facility] [facility]22 11:00:00 2023-04-22 11:00:00 Outpatient Helen ANDERSON [facility] [id number] [facility] 2023-01-21 13:15:00 2023-01-21 13:30:00 Store Protection Specialist Visit Lab, [facility] 1.2.840.114 350.1.13.10 4.2.7.2.[id number] [facility] 2023-01-21 11:00:00 2023-01-21 11:30:00 Office Visit [facility] 1.2.840.114 350.1.13.10 4.2.7.2.[id number] [facility] 2023-01-21 11:00:00 2023-01-21 11:00:00 Outpatient MIREYA PANDEY [facility] [id number] [facility] 2023-01-21 00:00:00 2023-01-21 00:00:00 Orders Only Doctor Unassigned, [place] [facility] 1..840.114 350.1.13.10 4.2.7.2.[id number] [facility] 2023-01-03 19:52:00 2023-01-03 21:57:00 Emergency X CHARLETTE HOLLOWAY [facility] ERT [id number] [facility] 2023-01-03 19:52:00 2023-01-03 21:57:00 Emergency Charlette Holloway [facility] 1..840.114 350.1.13.10 4.2.7.2.[id number] [facility] 2022-12-10 16:18:00 2022-12-10 18:56:00 Emergency X JONATHAN BAEZ [facility] ERT [id number] [facility] 2022-12-10 16:18:00 2022-12-10 18:56:00 Emergency Jonathan Baez [facility] 1..840.114 350.1.13.10 4.2.7.2.[id number] [facility] 2022-11-30 03:53:00 2022-11-30 06:45:00 Emergency X JENNY BURCH [facility] ERT [id number] [facility] 2022-11-30 03:53:00 2022-11-30 06:45:00 Emergency Jenny Burch [facility] 1..840.114 350.1.13.10 4.2.7.2.[id number] [facility] 2022-11-03 17:03:00 2022-11-03 20:37:00 Emergency X CONNIE VALENCIA [facility] ERT [id number] [facility] 2022-11-03 17:03:00 2022-11-03 20:37:00 Emergency Connie Valencia [facility] 1.2.840.114 350.1.13.10 4.2.7.2.[id number] [facility] 2022-10-28 15:53:00 2022-10-28 20:50:00 Emergency X SHERWIN Jane [facility] ERT [id number] [facility] 2022-10-28 15:53:00 2022-10-28 20:50:00 Emergency Josh Jenny Negrete Sherwin Jane Schwartz [facility] 1.2.840.114 350.1.13.10 4.2.7.2.[id number] [facility] 2022-10-01 16:52:00 2022-10-01 17:11:00 Emergency X XIOMARA HERNANDEZ [facility] ERT [id number] [facility] 2022-10-01 16:52:00 2022-10-01 17:11:00 [facility] 1.2.840.114 350.1.13.10 4.2.7.2.[id number] [facility] 2022-09-15 16:35:00 2022-09-15 20:25:00 Emergency X SHERWIN, K [facility] ERT [id number] [facility] 2022-09-15 16:35:00 2022-09-15 20:25:00 Emergency SherwinJane [facility] 1.2.840.114 350.1.13.10 4.2.7.2.[id number] [facility] 2022-08-20 20:04:00 2022-08-20 21:53:00 Emergency X XIOMARA HERNANDEZ [facility] ERT [id number] [facility] 2022-08-20 20:04:00 2022-08-20 21:53:00 Emergency Xiomara Hernandez [facility] 1.2.840.114 350.1.13.10 4.2.7.2.[id number] [facility] 2022-07-13 15:46:00 2022-07-13 18:03:00 Emergency X ARGELIA CARSON [facility] ERT [id number] [facility] 2022-07-13 15:46:00 2022-07-13 18:03:00 Emergency Argelia Carson [facility] 1.2.840.114 350.1.13.10 4.2.7.2.[id number] [facility] 2022-05-11 15:46:00 2022-05-11 18:31:00 Emergency X JC MIRZA [facility] ERT [id number] [facility] 2022-05-11 15:46:00 2022-05-11 18:31:00 Emergency Jc Mirza [facility] 1.2.840.114 350.1.13.10 4.2.7.2.[id number] [facility] 2022-04-04 03:54:00 2022-04-04 07:11:00 Emergency X MINH HARTMAN [facility] ERT [id number] [facility] 2022-04-04 03:54:00 2022-04-04 07:11:00 Emergency Minh Hartman [facility] 1.2.840.114 350.1.13.10 4.2.7.2.[id number] [facility] 2021-12-06 08:20:00 2021-12-06 11:48:00 Emergency X JONATHAN BAEZ [facility] ERT [id number] [facility] 2021-12-06 08:20:00 2021-12-06 11:48:00 Emergency Jonathan Baez [facility] 1.2.840.114 350.1.13.10 4.2.7.2.[id number] [facility] 2021-12-05 22:30:00 2021-12-06 02:18:00 Emergency MINH KUMAR [facility] ERT [id number] [facility] 2021-12-05 22:30:00 2021-12-06 02:18:00 Emergency Minh Hartman [facility] 1.2.840.114 350.1.13.10 4.2.7.2.[id number] [facility] 2016-09-30 09:30:00 2016-09-30 09:30:00 Outpatient YAZAN LOPES [facility] [id number] [facility] 2015-06-10 00:00:00 2015-06-10 23:59:00 Outpatient FLORINA IBANEZ [facility] RAD [id number] [facility] Results Test Description Test Time Test Comments Results Result Co mments Source [facility] GLUCOSE (AUTOMATED)2023-12-24 17:19:32* Test Item Value Reference Range Interpretation Comme nts POCT GLU (test code = 8252099893) 248 mg/dL 70-110 H Lab Interpretation (test cod e = 18253-7) Abnormal [facility] GLUCOSE (AUTOMATED)2023-12-24 10:29:28* Test Item Value Reference Range Interpretation Comme nts POCT GLU (test code = 8608075502) 230 mg/dL 70-110 H Lab Interpretation (test cod e = 26031-1) Abnormal [facility] GLUCOSE (AUTOMATED)2023-12-24 06:27:24* Test Item Value Reference Range Interpretation Comme nts POCT GLU (test code = 6597878305) 187 mg/dL 70-110 H Lab Interpretation (test cod e = 79189-1) Abnormal [facility] GLUCOSE (AUTOMATED)2023-12-24 03:31:28* Test Item Value Reference Range Interpretation Comme nts POCT GLU (test code = 0699708083) 256 mg/dL 70-110 H Lab Interpretation (test cod e = 63457-1) [facility]2023-12-24 02:45:27* Test Item Value Reference Range Interpretation Comme nts Height (test code = 3051075126) 62 in Weight (test code = 9451657053) 162 lbs Systolic BP (test code = 9023886993) 91 mmHg Diastolic BP (test code = 9125112283) 56 mmHg Heart Rate (test code = 5884263526) 60 bpm BSA (test code = 1808756452) 1.75 m2 Ao root diam (test code = 1942918690) 2.70 cm Aortic root (test code = 5229144264) 2.7 cm Ao root annulus (test code = 8260413921) 2.7 cm LVOT diameter (test code = 2345209775) 1.86 cm LVOT area (test code = 3849881478) 2.70 cm2 LVIDD (test code = 7907063641) 3.90 cm Left Ventricular End Diastolic Volume by Teichholz Method (test code = 0979072) 65.0 mL IVS (test code = 9692332913) 1.08 cm Interventricular Septum Diastolic Thickness by 2D (test code = 8136205) 1.08 cm LVPWD (test code = 2886768940) 1.06 cm PW (test code = 7327962976) 1.06 cm 0.6-1.1 EF(Teich) (test code = 2006182369) 61.20 % LVIDS (test code = 8599440484) 2.60 cm Left Ventricular End Systolic Volume by Teichholz Method (test code = 3693443) 25.2 mL FS (test code = 0320827565) 32 % EF - 2D (test code = 60207245) 61.20 % LA size (test code = 5464192609) 3.5 cm TR Peak Samuel (test code = 0929209769) 194.9 cm/s Triscuspid Valve Regurgitation Peak Gradient (test code = 1903518988) 15.3 mmHg LAV(MOD-sp4) (test code = 7376075001) 57.70 mL E wave decelartion time (test code = 6935752584) 0.16 s MV Peak E Samuel (test code = 5256372989) 100.6 cm/s MV Peak A Samuel (test code = 3358320896) 50.8 cm/s E/A ratio (test code = 0545493235) 1.98 ratio MV stenosis pressure 1/2 time (test code = 4824420578) 49.0 ms MV Prop V (test code = 9441609459) 56.20 cm/s MV E/e' septal (test code = 9969527003) 13.4 cm/s Tapse (test code = 9615727341) 2.26 cm LVOT stroke volume (test code = 1875104537) 71.10 cm3 LVOT peak samuel (test code = 3191322954) 116.3 cm/s LVOT mn grad (test code = 4442378232) 2.6 mmHg AV LVOT peak gradient (test code = 0235071262) 5.4 mmHg LVOT peak VTI (test code = 6645277219) 26.2 cm LV V1 mean (test code = 7347554831) 75.80 cm/s Aortic valve mean velocity (test code = 4809713723) 122.7 cm/s Ao peak samuel (test code = 6743593144) 181.3 cm/s Ao VTI (test code = 0423238853) 39.7 cm AV area by cont VTI (test code = 1729788342) 1.8 cm2 AV area peak samuel (test code = 3268838944) 1.7 cm2 Ao max PG (test code = 3276394253) 13.10 mm[Hg] AV peak gradient (test code = 7047041390) 13.1 mmHg AV valve area (test code = 6398604508) 1.79 cm2 AV mean gradient (test code = 2811073937) 6.6 mmHg Radiology Study observation (narrative) (test code = 61999-0) RUSS (test code = RUSS) ?Left?Ventricle: Left ventricle size is normal. Normal wall thickness. Normal wall motion. Normal systolic function with a visually estimated EF of 55 - 60%. Normal diastolic function. ?Right?Ventricle: Right ventricle size is normal. Normal systolic function. ?Tricuspid?Valve: Trace transvalvular regurgitation. Right ventricular systolic pressure is 15-20 mmHg. ?RA pressure is 0-5 mmHg. Left VentricleLeft ventricle size is normal. Normal wall thickness. Normal wall motion. Normal systolic function with a visually estimated EF of 55 - 60%. Normal diastolic function.Right VentricleRight ventricle size is normal. Normal systolic function.Left AtriumLeft atrium size is normal.Right AtriumRight atrium size is normal.Mitral ValveMitral valve structure is normal. Trace transvalvular regurgitation.Tricusp id ValveTricuspid valve structure is grossly normal. Trace transvalvular regurgitation. Right ventricular systolic pressure is 15-20 mmHg. RA pressure is 0-5 mmHg.Aortic ValveAortic valve opens well.Pulmonic ValvePulmonic valve is grossly normal in structure and function. Trace transvalvular regurgitation.Ascendi ng AortaNormal sized aortic root.PericardiumNo pericardial effusion.Study DetailsStudy quality was adequate. A complete echocardiogram was performed using 2D, color flow Doppler and spectral Doppler. [facility] GLUCOSE (AUTOMATED)2023-12-23 22:48:22* Test Item Value Reference Range Interpretation Comme nts POCT GLU (test code = 2906420632) 283 mg/dL 70-110 H Lab Interpretation (test cod e = 24211-6) Abnormal [facility] GLUCOSE (AUTOMATED)2023-12-23 17:55:07* Test Item Value Reference Range Interpretation Comme nts POCT GLU (test code = 0205670759) 300 mg/dL 70-110 H Lab Interpretation (test cod e = 79593-3) Abnormal [facility] GLUCOSE (AUTOMATED)2023-12-23 13:52:54* Test Item Value Reference Range Interpretation Comme nts POCT GLU (test code = 4313672141) 249 mg/dL 70-110 H Lab Interpretation (test cod e = 09054-4) Abnormal [facility] GLUCOSE (AUTOMATED)2023-12-23 10:13:30* Test Item Value Reference Range Interpretation Comme nts POCT GLU (test code = 1851594955) 204 mg/dL 70-110 H Lab Interpretation (test cod e = 05489-7) Abnormal [facility] GLUCOSE (AUTOMATED)2023-12-23 05:50:05* Test Item Value Reference Range Interpretation Comme nts POCT GLU (test code = 4921647892) 243 mg/dL 70-110 H Lab Interpretation (test cod e = 55486-3) Abnormal [facility] [id number] 02:30:23Jonathan Baez MD ? ? 12/22/2023 ?8:30 PMCritical Care Performed by: Jonathan Baez MDAuthorizedby: Jonathan Baez MD ?Critical care provider statement: ?Critical care time (minutes): ?45 ?Critical care time was exclusive of: ?Separately billable procedures and treating other patients and teaching time ?Critical care was necessary to treat or prevent imminent or life-threatening deterioration of the following conditions: ?Endocrine crisis ?Critical care was time spent personally by me on the following activities: ?Development of treatment plan with patient or surrogate, evaluation of patient's response to treatment, examination of patient, obtaining history from patient or surrogate, ordering and performing treatments and interventions, ordering and review of laboratory studies, ordering and review of radiographic studies, pulse oximetry, re- evaluation of patient's condition and review of old charts ?Care discussed with: admitting provider ?Comments: ? Due to a high probability of clinically significant, life threatening deterioration, the patient required my highest level of preparedness to intervene emergently and I personally spent this critical care time directly and personally managing the patient. This critical care time included obtaining a history; examining the patient; pulse oximetry; ordering and review of studies; arranging urgent treatment with development of a management plan; evaluation of patient's response to treatment; frequent reassessment; and, discussions with other providers.This critical care time was performed to assess and manage the high probability of imminent, life- threatening deterioration that could result in multi-organ failure. It was exclusive of separately billable procedures and treating other patients. [facility]cos[facility] Hemoglobin (A1C)2023-12-23 01:17:27* Test Item Value Reference Range Interpretation Comme nts HGB A1C (test code = 4548-4) 4.0-5.7 H RUSS (test code = RUSS) Reference RangesNormal: <5.7%Prediabetes: 5.7 - 6.4%Diabetes: > 6.5% Lab Interpretation (test code = 53025-6) Abnormal [facility] GL[facility]AUTOMATED)2023-12-23 01:09:36* Test Item Value Reference Range Interpretation Comme nts POCT GLU (test code = 1236580202) 334 mg/dL 70-110 H Lab Interpretation (test cod e = 46459-3) Abnormal [facility]vine[facility]yroid Stimulating Hormone (TSH)2023-12-23 00:44:58* Test Item Value Reference Range Interpretation Comme nts TSH (test code = 4335419855) 1.01 See_Comment Biotin has been reported to cause a negative bias, interpret results relative to patient's use of biotin. [Automated message] The system which generated this result transmitted reference range: 0.45 - 4.70 mIU/L. The reference range was not used to interpret this result as normal/abnormal. Lab Interpretation (test code = 64444-4) Normal [facility] GLUCOSE (AUTOMATED)2023-12-22 23:18:59* Test Item Value Reference Range Interpretation Comme nts POCT GLU (test code = 2615598108) 416 mg/dL 70-110 H Lab Interpretation (test cod e = 33510-8) Abnormal [facility] GLUCOSE (AUTOMATED)2023-12-22 22:33:30* Test Item Value Reference Range Interpretation Comme nts POCT GLU (test code = 9105807043) 390 mg/dL 70-110 H Lab Interpretation (test cod e = 22604-9) Abnormal [facility]vineTROPON[facility] [id number] 21:11:03* Test Item Value Reference Range Interpretation Comme nts TROPONIN I (test code = 2344384836) 0.001 ng/mL <=0.034 RUSS (test code = RUSS) Reference (Normal) Range (defined by the 99th percentile reference [...] to patient's use of biotin. Lab Interpretation (test code = 18500-4) Normal [facility]. METABOLIC PANEL (80118)2023-12-22 21:10:06* Test Item Value Reference Range Interpretation Comme nts NA (test code = 0230227632) 127 mmol/L 135-145 L K (test code = 4470793292) 4.4 mmol/L 3.5-5.0 CL (test code = 5666251197) 92 mmol/L 98-108 L CO2 TOTAL (test code = 4575853289) 28 mmol/L 23-31 AGAP (test code = 5936029968) 7 2-16 BUN (test code = 9367536713) 18 mg/dL 7-23 GLUCOSE (test code = 7803756331) 737 mg/dL 70-110 HH CREATININE (test code = 7112599738) 0.86 mg/dL 0.50-1.04 TOTAL BILI (test code = 7299322455) 0.7 mg/dL 0.1-1.1 CALCIUM (test code = 0863083444) 9.5 mg/dL 8.6-10.6 T PROTEIN (test code = 3864208964) 7.8 g/dL 6.3-8.2 ALBUMIN (test code = 1804572695) 4.2 g/dL 3.5-5.0 ALK PHOS (test code = 0127456126) 147 U/L 34-122 H ALTv (test code = 1742-6) 22 U/L 5-35 AST(SGOT) (test code = 3664196673) 19 U/L 13-40 eGFR (test code = 88541-0) 80.4 mL/min/1.73m2 CKD-EPI eGFR (2020). Assuming creatinine has been stable day-to-day for at least three months, the eGFR indicates Category G2 (60 - 89 mL/min/1.73 m2) Lab Interpretation (test code = 87054-5) Abnormal [facility]vineN-TERMINAL [id number] 21:08:25* Test Item Value Reference Range Interpretation Comme nts NT-proBNP (test code = 23273-2) 56 pg/mL <=125 Lab Interpretation (test cod e = 22041-8) Normal [facility]vineXR CHEST 1 [id number] 21:00:04EXAM: XR CHEST 1 VW HISTORY: 53 years-old Female with chest pain . TECHNIQUE: Single frontal view of the chest. COMPARISON: Chest radiograph dated 12/10/2022 FINDINGS: Lungs and pleura: The lungs are adequately expanded. No focal opacities,pleural effusion or pneumothorax is visualized. Heart/Mediastinum: The cardiac silhouette appears normal. Bones and soft tissues: No acute osseous abnormality is visualized.[facility]vineLIPASE2024-01-24 20:59:20* Test Item Value Reference Range Interpretation Comme nts LIPASE (test code = 9082119986) 188 U/L 0-220 Lab Interpretation (test cod e = 96699-3) Normal [facility]vineCB WITH [id number] 20:48:19* Test Item Value Reference Range Interpretation Comme nts WBC (test code = 6690-2) 7.22 See_Comment [Automated messa ge] The system which generated this result transmitted reference range: 4.30 - 11.10 10*3/?L. The reference range was not used to interpret this result as normal/abnormal. RBC (test code = 789-8) 4.70 See_Comment [Automated messa ge] The system which generated this result transmitted reference range: 3.93 - 5.25 10*6/?L. The reference range was not used to interpret this result as normal/abnormal. HGB (test code = 718-7) 14.0 g/dL 11.6-15.0 HCT (test code = 4544-3) 39.9 % 35.7-45.2 MCV (test code = 787-2) 84.9 fL 80.6-95.5 MCH (test code = 785-6) 29.8 pg 25.9-32.8 MCHC (test code = 786-4) 35.1 g/dL 31.6-35.1 RDW-SD (test code = 05152-7) 36.1 fL 39.0-49.9 L RDW-CV (test code = 788-0) 11.9 % 12.0-15.5 L PLT (test code = 777-3) 167 See_Comment [Automated [employer]] The system which generated this result transmitted reference range: 166 - 358 10*3/?L. The reference range was not used to interpret this result as normal/abnormal. MPV (test code = 62890-5) 10.8 fL 9.5-12.9 NRBC/100 WBC (test code = 4135301500) 0.0 See_Comment [Automated [employer] ssage] The system which generated this result transmitted reference range: 0.0 - 10.0 /100 WBCs. The reference range was not used to interpret this result as normal/abnormal. NRBC x10^3 (test code = 3381114203) See_Comment [Automated messa ge] The system which generated this result transmitted reference range: 10*3/?L. The reference range was not used to interpret this result as normal/abnormal. GRAN MAT (NEUT) % (test code = 770-8) 77.2 % IMM GRAN % (test code = 0061812820) 0.30 % LYMPH % (test code = 736-9) 15.2 % MONO % (test code = 5905-5) 4.8 % EOS % (test code = 713-8) 2.1 % BASO % (test code = 706-2) 0.4 % GRAN MAT x10^3(ANC) (test code = 3355399608) 5.57 10*3/uL 1.88-7.09 IMM GRAN x10^3 (test code = 0594469305) 0.00-0.06 LYMPH x10^3 (test code = 731-0) 1.10 10*3/uL 1.32-3.29 L MONO x10^3 (test code = 742-7) 0.35 10*3/uL 0.33-0.92 EOS x10^3 (test code = 711-2) 0.15 10*3/uL 0.03-0.39 BASO x10^3 (test code = 704-7) 0.03 10*3/uL 0.01-0.07 Lab Interpretation (test code = 87701-2) Abnormal [facility] HEAD WO [id number] 20:20:52EXAM: CT HEAD WO CONTRAST HISTORY: 53 years-old Female; Provided indication: Headache, new orworsening. TECHNIQUE: Axial CT of the head was performed and reconstructed at 5 mmintervals. Coronal and sagittal reformatted images were generated. COMPARISON: None FINDINGS: The ventricles and cerebral sulci are normal in caliber and configuration.No midline shift or pathological extra-axial fluid collection is present.The basal cisterns are unremarkable. No acute intracranial hemorrhage or significant mass effect is visualized.No parenchymal attenuation abnormality is seen. The alarcon-white matterdifferentiation is preserved. The mastoid air cells and paranasal air sinuses are clear. The calvariumand central skull base are unremarkable.[facility] GLUCOSE (AUTOMATED)2023-01-04 03:45:41* Test Item Value Reference Range Interpretation Comme nts POCT GLU (test code = 6513596904) 324 mg/dL 70-110 H Notified Provide r Lab Interpretation (test code = 85471-8) Abnormal [facility] GLUCOSE (AUTOMATED)2023-01-04 03:09:17* Test Item Value Reference Range Interpretation Comme nts POCT GLU (test code = 1327623747) 464 mg/dL 70-110 HH Lab Interpretation (test cod e = 78523-3) Abnormal [facility] GLUCOSE (AUTOMATED)2022-11-30 12:11:43* Test Item Value Reference Range Interpretation Comme nts POCT GLU (test code = 6376696918) 223 mg/dL 70-110 H Lab Interpretation (test cod e = 91110-7) Abnormal [facility]vineTROP[facility] [id number] 10:28:35* Test Item Value Reference Range Interpretation Comments TROPONIN I (test code = 7232470830) 0.001 ng/mL See_Comment [Automated message] The system which generated this result transmitted reference range: <=0.034. The reference range was not used to interpret this result as normal/abnormal. RUSS (test code = RUSS) Reference (Normal) Range (defined by the 99th percentile reference [...] to patient's use of biotin. Lab Interpretation (test code = 79225-4) Normal [facility]. METABOLIC PANEL (02287)2022-11-30 10:16:54* Test Item Value Reference Range Interpretation Comme nts NA (test code = 2632075211) 132 mmol/L 135-145 L K (test code = 9334352760) 3.9 mmol/L 3.5-5.0 CL (test code = 0961021838) 98 mmol/L 98-108 CO2 TOTAL (test code = 4902544318) 27 mmol/L 23-31 AGAP (test code = 7482072896) 2-16 BUN (test code = 9655858418) 14 mg/dL 7-23 GLUCOSE (test code = 5294749893) 282 mg/dL 70-110 H CREATININE (test code = 0279705814) 0.69 mg/dL 0.50-1.04 TOTAL BILI (test code = 1763784425) 0.5 mg/dL 0.1-1.1 CALCIUM (test code = 7744474572) 8.7 mg/dL 8.6-10.6 T PROTEIN (test code = 5358465630) 7.0 g/dL 6.3-8.2 ALBUMIN (test code = 8500419288) 4.1 g/dL 3.5-5.0 ALK PHOS (test code = 5386594204) 135 U/L 34-122 H ALTv (test code = 1742-6) 52 U/L 5-35 H AST(SGOT) (test code = 9395747366) 30 U/L 13-40 eGFR (test code = 7679785302) mL/min/1.73m2 RUSS (test code = RUSS) Association of [...] or abnormalities in imaging tests). Lab Interpretation (test code = 63673-5) [facility]normal [facility]2023-01-02 10:16:34* Test Item Value Reference Range Interpretation Comme nts LIPASE (test code = 0141889746) 120 U/L 0-220 Lab Interpretation (test cod e = 27720-6) Normal [facility] WITH [id number] 10:08:14* Test Item Value Reference Range Interpretation Comme nts WBC (test code = 6690-2) See_Comment [Automated [employer]] The system which generated this result transmitted reference range: 4.30 - 11.10 10*3/?L. The reference range was not used to interpret this result as normal/abnormal. RBC (test code = 789-8) See_Comment [Automated [employer]] The system which generated this result transmitted reference range: 3.93 - 5.25 10*6/?L. The reference range was not used to interpret this result as normal/abnormal. HGB (test code = 718-7) 13.0 g/dL 11.6-15.0 HCT (test code = 4544-3) 37.3 % 35.7-45.2 MCV (test code = 787-2) 85.9 fL 80.6-95.5 MCH (test code = 785-6) 30.0 pg 25.9-32.8 MCHC (test code = 786-4) 34.9 g/dL 31.6-35.1 RDW-SD (test code = 43426-6) 37.2 fL 39.0-49.9 L RDW-CV (test code = 788-0) 11.8 % 12.0-15.5 L PLT (test code = 777-3) See_Comment L [Automated messa ge] The system which generated this result transmitted reference range: 166 - 358 10*3/?L. The reference range was not used to interpret this result as normal/abnormal. MPV (test code = 53357-4) 10.2 fL 9.5-12.9 NRBC/100 WBC (test code = 4390202402) See_Comment [Automated [employer] ssage] The system which generated this result transmitted reference range: 0.0 - 10.0 /100 WBCs. The reference range was not used to interpret this result as normal/abnormal. NRBC x10^3 (test code = 0264708818) See_Comment [Automated messa ge] The system which generated this result transmitted reference range: 10*3/?L. The reference range was not used to interpret this result as normal/abnormal. GRAN MAT (NEUT) % (test code = 770-8) 58.2 % IMM GRAN % (test code = 7436655231) 0.20 % LYMPH % (test code = 736-9) 30.8 % MONO % (test code = 5905-5) 7.2 % EOS % (test code = 713-8) 3.0 % BASO % (test code = 706-2) 0.6 % GRAN MAT x10^3(ANC) (test code = 6903522431) 3.06 10*3/uL 1.88-7.09 IMM GRAN x10^3 (test code = 4215991617) 0.00-0.06 LYMPH x10^3 (test code = 731-0) 1.62 10*3/uL 1.32-3.29 MONO x10^3 (test code = 742-7) 0.38 10*3/uL 0.33-0.92 EOS x10^3 (test code = 711-2) 0.16 10*3/uL 0.03-0.39 BASO x10^3 (test code = 704-7) 0.03 10*3/uL 0.01-0.07 Lab Interpretation (test code = 42347-8) Abnormal [facility] GLUCOSE (AUTOMATED)2022-11-30 09:54:04* Test Item Value Reference Range Interpretation Comme [facility] POCT GLU (test code = 3520249587) 298 mg/dL 70-110 H Lab Interpretation (test cod e = 12715-8) Abnormal [facility] GLUCOSE (AUTOMATED)2022-11-04 02:36:44* Test Item Value Reference Range Interpretation Comme [facility] POCT GLU (test code = 6614363235) 222 mg/dL 70-110 H Lab Interpretation (test cod e = 22265-9) Abnormal [facility] METABOLIC PANEL (NA, K, CL, CO2, GLUCOSE, BUN, CREATININE, CA)2022-11-04 01:52:55* Test Item Value Reference Range Interpretation Comme [facility] NA (test code = 4178790926) 136 mmol/L 135-145 K (test code = 8481998226) 4.2 mmol/L 3.5-5.0 CL (test code = 3455911276) 102 mmol/L 98-108 CO2 TOTAL (test code = 1935498677) 24 mmol/L 23-31 AGAP (test code = 4153007670) 2-16 BUN (test code = 6728567146) 18 mg/dL 7-23 GLUCOSE (test code = 6847419557) 478 mg/dL 70-110 HH CREATININE (test code = 8295651715) 0.71 mg/dL 0.50-1.04 CALCIUM (test code = 8251244248) 9.6 mg/dL 8.6-10.6 eGFR (test code = 7065514656) mL/min/1.73m2 RUSS (test code = RUSS) Association of [...] or abnormalities in imaging tests). Lab Interpretation (test code = 29415-8) [facility] [id number] 01:42:22* Test Item Value Reference Range Interpretation Comments TROPONIN I (test code = 2361772954) 0.001 ng/mL See_Comment [Automated message] The system which generated this result transmitted reference range: <=0.034. The reference range was not used to interpret this result as normal/abnormal. RUSS (test code = RUSS) Reference (Normal) Range (defined by the 99th percentile reference [...] to patient's use of biotin. Lab Interpretation (test code = 16839-8) [facility] [id number] 01:24:19* Test Item Value Reference Range Interpretation Comme nts WBC (test code = 6690-2) See_Comment [Automated messa ge] The system which generated this result transmitted reference range: 4.30 - 11.10 10*3/?L. The reference range was not used to interpret this result as normal/abnormal. RBC (test code = 789-8) See_Comment [Automated messa ge] The system which generated this result transmitted reference range: 3.93 - 5.25 10*6/?L. The reference range was not used to interpret this result as normal/abnormal. HGB (test code = 718-7) 13.2 g/dL 11.6-15.0 HCT (test code = 4544-3) 37.9 % 35.7-45.2 MCV (test code = 787-2) 86.7 fL 80.6-95.5 MCH (test code = 785-6) 30.2 pg 25.9-32.8 MCHC (test code = 786-4) 34.8 g/dL 31.6-35.1 RDW-SD (test code = 36280-7) 37.5 fL 39.0-49.9 L RDW-CV (test code = 788-0) 11.9 % 12.0-15.5 L PLT (test code = 777-3) See_Comment [Automated [employer] ge] The system which generated this result transmitted reference range: 166 - 358 10*3/?L. The reference range was not used to interpret this result as normal/abnormal. MPV (test code = 64150-4) 11.0 fL 9.5-12.9 NRBC/100 WBC (test code = 9685095386) See_Comment [Automated [employer] ssage] The system which generated this result transmitted reference range: 0.0 - 10.0 /100 WBCs. The reference range was not used to interpret this result as normal/abnormal. NRBC x10^3 (test code = 8397276086) See_Comment [Automated [employer] ge] The system which generated this result transmitted reference range: 10*3/?L. The reference range was not used to interpret this result as normal/abnormal. GRAN MAT (NEUT) % (test code = 770-8) 68.9 % IMM GRAN % (test code = 4897277956) 0.50 % LYMPH % (test code = 736-9) 24.9 % MONO % (test code = 5905-5) 4.5 % EOS % (test code = 713-8) 0.8 % BASO % (test code = 706-2) 0.4 % GRAN MAT x10^3(ANC) (test code = 9241345277) 5.01 10*3/uL 1.88-7.09 IMM GRAN x10^3 (test code = 0735123669) 0.04 10*3/uL 0.00-0.06 LYMPH x10^3 (test code = 731-0) 1.81 10*3/uL 1.32-3.29 MONO x10^3 (test code = 742-7) 0.33 10*3/uL 0.33-0.92 EOS x10^3 (test code = 711-2) 0.06 10*3/uL 0.03-0.39 BASO x10^3 (test code = 704-7) 0.03 10*3/uL 0.01-0.07 Lab Interpretation (test code = 28445-0) [facility] 00:50:24* Test Item Value Reference Range Interpretation Comme nts POCT GLU (test code = 7580101418) 452 mg/dL 70-110 Lab Interpretation (test cod e = 42837-7) [facility] [id number] 22:41:10* Test Item Value Reference Range Interpretation Comments TROPONIN I (test code = 1269774428) 0.001 ng/mL See_Comment [Automated message] The system which generated this result transmitted reference range: <=0.034. The reference range was not used to interpret this result as normal/abnormal. RUSS (test code = RUSS) Reference (Normal) Range (defined by the 99th percentile reference [...] to patient's use of biotin. Lab Interpretation (test code = 83879-5) [facility]2022-[facility]-30 22:30:04* Test Item Value Reference Range Interpretation Comme nts MAGNESIUM (test code = 0334997295) 1.5 mg/dL 1.7-2.4 L Lab Interpretation (test cod e = 68822-3) Abnormal [facility]. METABOLIC PANEL (32698)2022-10-28 22:29:23* Test Item Value Reference Range Interpretation Comme nts NA (test code = 1345748712) 137 mmol/L 135-145 K (test code = 9860400713) 4.2 mmol/L 3.5-5.0 CL (test code = 3018914495) 101 mmol/L 98-108 CO2 TOTAL (test code = 7900379682) 25 mmol/L 23-31 AGAP (test code = 6586066943) 2-16 BUN (test code = 0704109050) 14 mg/dL 7-23 GLUCOSE (test code = 9366390777) 274 mg/dL 70-110 H CREATININE (test code = 9008626522) 0.65 mg/dL 0.50-1.04 TOTAL BILI (test code = 9365035555) 0.3 mg/dL 0.1-1.1 CALCIUM (test code = 7066316957) 9.5 mg/dL 8.6-10.6 T PROTEIN (test code = 5012109984) 7.7 g/dL 6.3-8.2 ALBUMIN (test code = 2608289704) 4.5 g/dL 3.5-5.0 ALK PHOS (test code = 5373005525) 119 U/L 34-122 ALTv (test code = 1742-6) 41 U/L 5-35 H AST(SGOT) (test code = 2137168894) 33 U/L 13-40 eGFR (test code = 2480766552) mL/min/1.73m2 RUSS (test code = RUSS) Association of [...] or abnormalities in imaging tests). Lab Interpretation (test code = 17437-7) [facility] 22:29:23* Test Item Value Reference Range Interpretation Comme [facility] LIPASE (test code = 6519152042) 210 U/L 0-220 Lab Interpretation (test cod e = 95441-4) [facility] WITH [id number] 22:02:42* Test Item Value Reference Range Interpretation Comme nts WBC (test code = 6690-2) See_Comment [Automated [employer]] The system which generated this result transmitted reference range: 4.30 - 11.10 10*3/?L. The reference range was not used to interpret this result as normal/abnormal. RBC (test code = 789-8) See_Comment [Automated [employer]] The system which generated this result transmitted reference range: 3.93 - 5.25 10*6/?L. The reference range was not used to interpret this result as normal/abnormal. HGB (test code = 718-7) 13.7 g/dL 11.6-15.0 HCT (test code = 4544-3) 39.8 % 35.7-45.2 MCV (test code = 787-2) 87.1 fL 80.6-95.5 MCH (test code = 785-6) 30.0 pg 25.9-32.8 MCHC (test code = 786-4) 34.4 g/dL 31.6-35.1 RDW-SD (test code = 23045-3) 37.4 fL 39.0-49.9 L RDW-CV (test code = 788-0) 11.8 % 12.0-15.5 L PLT (test code = 777-3) See_Comment [Automated [employer]] The system which generated this result transmitted reference range: 166 - 358 10*3/?L. The reference range was not used to interpret this result as normal/abnormal. MPV (test code = 67426-1) 10.4 fL 9.5-12.9 NRBC/100 WBC (test code = 0808129363) See_Comment [Automated [employer] ssage] The system which generated this result transmitted reference range: 0.0 - 10.0 /100 WBCs. The reference range was not used to interpret this result as normal/abnormal. NRBC x10^3 (test code = 3973765823) See_Comment [Automated [employer] ge] The system which generated this result transmitted reference range: 10*3/?L. The reference range was not used to interpret this result as normal/abnormal. GRAN MAT (NEUT) % (test code = 770-8) 69.9 % IMM GRAN % (test code = 6637025491) 0.50 % LYMPH % (test code = 736-9) 23.8 % MONO % (test code = 5905-5) 4.1 % EOS % (test code = 713-8) 1.4 % BASO % (test code = 706-2) 0.3 % GRAN MAT x10^3(ANC) (test code = 6693854453) 4.63 10*3/uL 1.88-7.09 IMM GRAN x10^3 (test code = 8043054689) 0.03 10*3/uL 0.00-0.06 LYMPH x10^3 (test code = 731-0) 1.57 10*3/uL 1.32-3.29 MONO x10^3 (test code = 742-7) 0.27 10*3/uL 0.33-0.92 L EOS x10^3 (test code = 711-2) 0.09 10*3/uL 0.03-0.39 BASO x10^3 (test code = 704-7) 0.01-0.07 Lab Interpretation (test code = 15517-6) Abnormal [facility] GLUCOSE (AUTOMATED)2022-09-16 00:59:22* Test Item Value Reference Range Interpretation Comme nts POCT GLU (test code = 7723567493) 238 mg/dL 70-110 H Lab Interpretation (test cod e = 56069-3) Abnormal [facility] GLUCOSE(AGE >30DAYS)2022-09-16 00:56:00* Test Item Value Reference Range Interpretation Comme nts POCT Glu (age>30days) (test code = 3342) 238 mg/dL 70-110 Lab Interpretation (test cod e = 67301-0) [facility] [id number] 22:43:37* Test Item Value Reference Range Interpretation Comments TROPONIN I (test code = 5914333805) 0.003 ng/mL See_Comment [Automated message] The system which generated this result transmitted reference range: <=0.034. The reference range was not used to interpret this result as normal/abnormal. RUSS (test code = RUSS) Reference (Normal) Range (defined by the 99th percentile reference [...] to patient's use of biotin. Lab Interpretation (test code = 73641-7) [facility]vine[facility] Metabolic [id number] 22:35:37* Test Item Value Reference Range Interpretation Comme nts NA (test code = 7806307155) 137 mmol/L 135-145 K (test code = 3234442997) 4.5 mmol/L 3.5-5 CL (test code = 8917754344) 99 mmol/L 98-108 CO2 TOTAL (test code = 8277861631) 23 mmol/L 23-31 AGAP (test code = 0949390151) 2-16 BUN (test code = 5787713999) 16 mg/dL 7-23 GLUCOSE (test code = 8388385058) 405 mg/dL 70-110 H CREATININE (test code = 5153868674) 0.66 mg/dL 0.5-1.04 TOTAL BILI (test code = 0779591254) 0.6 mg/dL 0.1-1.1 CALCIUM (test code = 7497957761) 9.9 mg/dL 8.6-10.6 T PROTEIN (test code = 3751492036) 8.8 g/dL 6.3-8.2 H ALBUMIN (test code = 3484497184) 4.9 g/dL 3.5-5 ALK PHOS (test code = 5198758970) 164 U/L 34-122 H ALTv (test code = 1742-6) 88 U/L 5-35 H AST(SGOT) (test code = 6150477282) 51 U/L 13-40 H eGFR (test code = 2059737960) mL/min/1.73m2 RUSS (test code = RUSS) Association of [...] or abnormalities in imaging tests). Lab Interpretation (test code = 76452-8) [facility]vineLip[facility], [id number] 22:34:57* Test Item Value Reference Range Interpretation Comme nts LIPASE (test code = 7809021637) 159 U/L 0-220 Lab Interpretation (test cod e = 50773-2) [facility] with Jzmdxpvihpsn1720-69-71 22:11:31* Test Item Value Reference Range Interpretation Comme nts WBC (test code = 6690-2) See_Comment [Automated [employer]] The system which generated this result transmitted reference range: 4.30 - 11.10 10*3/?L. The reference range was not used to interpret this result as normal/abnormal. RBC (test code = 789-8) See_Comment [Automated [employer]] The system which generated this result transmitted reference range: 3.93 - 5.25 10*6/?L. The reference range was not used to interpret this result as normal/abnormal. HGB (test code = 718-7) 14.2 g/dL 11.6-15 HCT (test code = 4544-3) 40.3 % 35.7-45.2 MCV (test code = 787-2) 88.6 fL 80.6-95.5 MCH (test code = 785-6) 31.2 pg 25.9-32.8 MCHC (test code = 786-4) 35.2 g/dL 31.6-35.1 H RDW-SD (test code = 54061-7) 38.5 fL 39-49.9 L RDW-CV (test code = 788-0) 12.0 % 12-15.5 PLT (test code = 777-3) See_Comment L [Automated messa ge] The system which generated this result transmitted reference range: 166 - 358 10*3/?L. The reference range was not used to interpret this result as normal/abnormal. MPV (test code = 47029-6) 10.7 fL 9.5-12.9 NRBC/100 WBC (test code = 0610107269) See_Comment [Automated me ssage] The system which generated this result transmitted reference range: 0.0 - 10.0 /100 WBCs. The reference range was not used to interpret this result as normal/abnormal. NRBC x10^3 (test code = 4566942298) See_Comment [Automated messa ge] The system which generated this result transmitted reference range: 10*3/?L. The reference range was not used to interpret this result as normal/abnormal. GRAN MAT (NEUT) % (test code = 770-8) 69.4 % IMM GRAN % (test code = 1585111004) 0.20 % LYMPH % (test code = 736-9) 22.6 % MONO % (test code = 5905-5) 5.7 % EOS % (test code = 713-8) 1.6 % BASO % (test code = 706-2) 0.5 % GRAN MAT x10^3(ANC) (test code = 9242245762) 4.00 10*3/uL 1.88-7.09 IMM GRAN x10^3 (test code = 9067038651) 0-0.06 LYMPH x10^3 (test code = 731-0) 1.30 10*3/uL 1.32-3.29 L MONO x10^3 (test code = 742-7) 0.33 10*3/uL 0.33-0.92 EOS x10^3 (test code = 711-2) 0.09 10*3/uL 0.03-0.39 BASO x10^3 (test code = 704-7) 0.03 10*3/uL 0.01-0.07 Lab Interpretation (test code = 58392-0) Abnormal [facility] GLUCOSE (AUTOMATED)2022-08-21 02:00:19* Test Item Value Reference Range Interpretation Comme nts POCT GLU (test code = 6829565767) 516 mg/dL 70-110 HH Notified Provide r Lab Interpretation (test code = 95351-9) Abnormal [facility] GLUCOSE (AUTOMATED)2022-05-11 22:58:38* Test Item Value Reference Range Interpretation Comme nts POCT GLU (test code = 4690392290) 318 mg/dL 70-110 H Lab Interpretation (test cod e = 80040-0) Abnormal [facility] GLUCOSE (AUTOMATED)2022-05-11 22:21:13* Test Item Value Reference Range Interpretation Comme nts POCT GLU (test code = 4492405192) 344 mg/dL 70-110 H Lab Interpretation (test cod e = 32099-5) [facility]vineN-TERMIN[facility] LRL-MYZ1403-02-13 21:44:37* Test Item Value Reference Range Interpretation Comme nts NT-proBNP (test code = 8260068362) 137 pg/mL See_Comment H [Automated message] The system which generated this result transmitted reference range: <=125. The reference range was not used to interpret this result as normal/abnormal. RUSS (test code = RUSS) Biotin has been reported to cause a negative bias, interpret results relative to patient's use of biotin. Lab Interpretation (test code = 17187-8) Abnormal [facility]. METABOLIC PANEL (08419)2022-05-11 21:33:55* Test Item Value Reference Range Interpretation Comme nts NA (test code = 3770681659) 136 mmol/L 135-145 K (test code = 9673819245) 3.9 mmol/L 3.5-5.0 CL (test code = 8388960645) 99 mmol/L 98-108 CO2 TOTAL (test code = 0379662526) 28 mmol/L 23-31 AGAP (test code = 9466822368) 2-16 BUN (test code = 9345030330) 16 mg/dL 7-23 GLUCOSE (test code = 4244473350) 367 mg/dL 70-110 H CREATININE (test code = 5155353696) 0.60 mg/dL 0.50-1.04 TOTAL BILI (test code = 7173337569) 0.8 mg/dL 0.1-1.1 CALCIUM (test code = 3290874546) 9.8 mg/dL 8.6-10.6 T PROTEIN (test code = 1818584228) 7.9 g/dL 6.3-8.2 ALBUMIN (test code = 4972261446) 4.6 g/dL 3.5-5.0 ALK PHOS (test code = 9097756832) 130 U/L 34-122 H ALTv (test code = 1742-6) 28 U/L 5-35 AST(SGOT) (test code = 7906251050) 36 U/L 13-40 eGFR (test code = 2284581166) mL/min/1.73m2 RUSS (test code = RUSS) Association of [...] or abnormalities in imaging tests). Lab Interpretation (test code = 26377-5) [facility] 21:33:55* Test Item Value Reference Range Interpretation Comme nts LIPASE (test code = 8975852462) 173 U/L 0-220 Lab Interpretation (test cod e = 99099-3) Normal [facility] WITH [id number] 21:24:34* Test Item Value Reference Range Interpretation Comme nts WBC (test code = 6690-2) See_Comment [Automated messa ge] The system which generated this result transmitted reference range: 4.30 - 11.10 10*3/?L. The reference range was not used to interpret this result as normal/abnormal. RBC (test code = 789-8) See_Comment [Automated messa ge] The system which generated this result transmitted reference range: 3.93 - 5.25 10*6/?L. The reference range was not used to interpret this result as normal/abnormal. HGB (test code = 718-7) 14.4 g/dL 11.6-15.0 HCT (test code = 4544-3) 41.9 % 35.7-45.2 MCV (test code = 787-2) 86.4 fL 80.6-95.5 MCH (test code = 785-6) 29.7 pg 25.9-32.8 MCHC (test code = 786-4) 34.4 g/dL 31.6-35.1 RDW-SD (test code = 27148-9) 39.1 fL 39.0-49.9 RDW-CV (test code = 788-0) 12.4 % 12.0-15.5 PLT (test code = 777-3) See_Comment [Automated messa ge] The system which generated this result transmitted reference range: 166 - 358 10*3/?L. The reference range was not used to interpret this result as normal/abnormal. MPV (test code = 97970-5) 10.6 fL 9.5-12.9 NRBC/100 WBC (test code = 6639581415) See_Comment [Automated me ssage] The system which generated this result transmitted reference range: 0.0 - 10.0 /100 WBCs. The reference range was not used to interpret this result as normal/abnormal. NRBC x10^3 (test code = 6187997866) <0.01 See_Comment [Automated messa ge] The system which generated this result transmitted reference range: 10*3/?L. The reference range was not used to interpret this result as normal/abnormal. GRAN MAT (NEUT) % (test code = 770-8) 76.2 % IMM GRAN % (test code = 7457159625) 0.30 % LYMPH % (test code = 736-9) 16.7 % MONO % (test code = 5905-5) 5.2 % EOS % (test code = 713-8) 1.2 % BASO % (test code = 706-2) 0.4 % GRAN MAT x10^3(ANC) (test code = 6630855694) 5.26 10*3/uL 1.88-7.09 IMM GRAN x10^3 (test code = 2746727170) <0.03 0.00-0.06 LYMPH x10^3 (test code = 731-0) 1.15 10*3/uL 1.32-3.29 L MONO x10^3 (test code = 742-7) 0.36 10*3/uL 0.33-0.92 EOS x10^3 (test code = 711-2) 0.08 10*3/uL 0.03-0.39 BASO x10^3 (test code = 704-7) 0.03 10*3/uL 0.01-0.07 Lab Interpretation (test code = 18478-2) [facility]22-[facility]-04 11:08:42* Test Item Value Reference Range Interpretation Comme nts POCT GLU (test code = 0705133280) 381 mg/dL 70-110 H Lab Interpretation (test cod e = 82734-6) Abnormal [facility]. METABOLIC PANEL (76765)2022-04-04 10:16:12* Test Item Value Reference Range Interpretation Comme nts NA (test code = 7899417501) 131 mmol/L 135-145 L K (test code = 6736174404) 4.0 mmol/L 3.5-5.0 CL (test code = 9001892803) 93 mmol/L 98-108 L CO2 TOTAL (test code = 9907680701) 23 mmol/L 23-31 AGAP (test code = 3423145014) 2-16 BUN (test code = 3630935452) 20 mg/dL 7-23 GLUCOSE (test code = 1173337409) 566 mg/dL 70-110 HH CREATININE (test code = 4922989168) 0.76 mg/dL 0.50-1.04 TOTAL BILI (test code = 0740955798) 0.9 mg/dL 0.1-1.1 CALCIUM (test code = 0120576888) 9.5 mg/dL 8.6-10.6 T PROTEIN (test code = 8732578326) 7.5 g/dL 6.3-8.2 ALBUMIN (test code = 1746022337) 4.4 g/dL 3.5-5.0 ALK PHOS (test code = 8977658400) 130 U/L 34-122 H ALTv (test code = 1742-6) 16 U/L 5-35 AST(SGOT) (test code = 9775112768) 22 U/L 13-40 eGFR (test code = 2073966193) mL/min/1.73m2 RUSS (test code = RUSS) Association of [...] or abnormalities in imaging tests). Lab Interpretation (test code = 12484-2) [facility] 09:55:58* Test Item Value Reference Range Interpretation Comme nts MAGNESIUM (test code = 0394074252) 1.7 mg/dL 1.7-2.4 Lab Interpretation (test cod e = 61088-3) Normal [facility] WITH [id number] 09:24:34* Test Item Value Reference Range Interpretation Comme nts WBC (test code = 6690-2) See_Comment [Automated [employer]] The system which generated this result transmitted reference range: 4.30 - 11.10 10*3/?L. The reference range was not used to interpret this result as normal/abnormal. RBC (test code = 789-8) See_Comment [Automated [employer]] The system which generated this result transmitted reference range: 3.93 - 5.25 10*6/?L. The reference range was not used to interpret this result as normal/abnormal. HGB (test code = 718-7) 14.9 g/dL 11.6-15.0 HCT (test code = 4544-3) 41.7 % 35.7-45.2 MCV (test code = 787-2) 84.2 fL 80.6-95.5 MCH (test code = 785-6) 30.1 pg 25.9-32.8 MCHC (test code = 786-4) 35.7 g/dL 31.6-35.1 H RDW-SD (test code = 16646-9) 36.8 fL 39.0-49.9 L RDW-CV (test code = 788-0) 12.2 % 12.0-15.5 PLT (test code = 777-3) See_Comment [Automated [employer]] The system which generated this result transmitted reference range: 166 - 358 10*3/?L. The reference range was not used to interpret this result as normal/abnormal. MPV (test code = 57629-9) 10.4 fL 9.5-12.9 NRBC/100 WBC (test code = 4986143637) See_Comment [Automated me ssage] The system which generated this result transmitted reference range: 0.0 - 10.0 /100 WBCs. The reference range was not used to interpret this result as normal/abnormal. NRBC x10^3 (test code = 5082460783) <0.01 See_Comment [Automated messa ge] The system which generated this result transmitted reference range: 10*3/?L. The reference range was not used to interpret this result as normal/abnormal. GRAN MAT (NEUT) % (test code = 770-8) 64.5 % IMM GRAN % (test code = 0334862817) 0.50 % LYMPH % (test code = 736-9) 26.4 % MONO % (test code = 5905-5) 6.4 % EOS % (test code = 713-8) 1.6 % BASO % (test code = 706-2) 0.6 % GRAN MAT x10^3(ANC) (test code = 3185011136) 4.01 10*3/uL 1.88-7.09 IMM GRAN x10^3 (test code = 8038376536) 0.03 10*3/uL 0.00-0.06 LYMPH x10^3 (test code = 731-0) 1.64 10*3/uL 1.32-3.29 MONO x10^3 (test code = 742-7) 0.40 10*3/uL 0.33-0.92 EOS x10^3 (test code = 711-2) 0.10 10*3/uL 0.03-0.39 BASO x10^3 (test code = 704-7) 0.04 10*3/uL 0.01-0.07 Lab Interpretation (test code = 50023-5) [facility]-04 09:04:45* Test Item Value Reference Range Interpretation Comme [facility] POCT GLU (test code = 2003562579) 532 mg/dL 70-110 HH Lab Interpretation (test cod e = 82214-8) [facility] 16:39:21* Test Item Value Reference Range Interpretation Comme nts SALICYLATE (test code = 9038622546) <10 mg/L RUSS (test code = RUSS) Therapeutic Range: ? Analgesic and Antipyretic Use ? 20-100 mg/L ? ? Anti-Inflammatory Use ? 100-250 mg/L Toxic Range: ? Greater than 300 mg/L [facility]2022-01-08 16:39:06* Test Item Value Reference Range Interpretation Comme nts ACETAMINOP (test code = 1113606716) <10.0 10.0-30.0 L RUSS (test code = RUSS) Toxic: Greater parker n 200 ug/mL @ 4 hour post ingestion or greater than 50 ug/mL @ 12 hour post ingestion Lab Interpretation (test code = 03022-1) [facility] 15:24:55* Test Item Value Reference Range Interpretation Comme nts ALCOHOL (test code = 0009700120) <10 mg/dL RUSS (test code = RUSS) <10 Irjabvxp80-211 Toxic>100 Depression of [employer] GOODS REPAIRER>400 [facility]ities [facility] [id number] 15:20:39* Test Item Value Reference Range Interpretation Comments TROPONIN I (test code = 1280030046) 0.008 ng/mL See_Comment [Automated message] The system which generated this result transmitted reference range: <=0.034. The reference range was not used to interpret this result as normal/abnormal. RUSS (test code = RUSS) Reference (Normal) Range (defined by the 99th percentile reference [...] to patient's use of biotin. Lab Interpretation (test code = 44466-2) Normal [facility] [id number] 15:17:38* Test Item Value Reference Range Interpretation Comme nts NT-proBNP (test code = 7979722869) 51 pg/mL See_Comment [Automated message] The system which generated this result transmitted reference range: <=125. The reference range was not used to interpret this result as normal/abnormal. RUSS (test code = RUSS) Biotin has been reported to cause a negative bias, interpret results relative to patient's use of biotin. Lab Interpretation (test code = 72520-7) Normal [facility]. METABOLIC PANEL (41104)2021-12-06 15:09:16* Test Item Value Reference Range Interpretation Comme nts NA (test code = 8477721911) 135 mmol/L 135-145 K (test code = 0001469523) 4.1 mmol/L 3.5-5.0 CL (test code = 6801057879) 99 mmol/L 98-108 CO2 TOTAL (test code = 7401464680) 28 mmol/L 23-31 AGAP (test code = 5678856972) 2-16 BUN (test code = 3826092942) 17 mg/dL 7-23 GLUCOSE (test code = 2067399778) 250 mg/dL 70-110 H CREATININE (test code = 9106259837) 0.77 mg/dL 0.50-1.04 TOTAL BILI (test code = 9703225638) 0.5 mg/dL 0.1-1.1 CALCIUM (test code = 5349944632) 9.4 mg/dL 8.6-10.6 T PROTEIN (test code = 2631116042) 8.3 g/dL 6.3-8.2 H ALBUMIN (test code = 7576590247) 4.6 g/dL 3.5-5.0 ALK PHOS (test code = 2385822069) 182 U/L 34-122 H ALTv (test code = 1742-6) 145 U/L 5-35 H AST(SGOT) (test code = 8226165263) 115 U/L 13-40 H eGFR (test code = 5623575453) mL/min/1.73m2 RUSS (test code = RUSS) Association of [...] or abnormalities in imaging tests). Lab Interpretation (test code = 73941-9) Abnormal [facility]vine[facility]IV[facility] PART[facility] THRMPLAS [id number] 15:08:56* Test Item Value Reference Range Interpretation Comme [facility] APTT Patient (test code = 3173-2) See_Comment [Automated message] The system which generated this result transmitted reference range: 23 - 38 Seconds. The reference range was not used to interpret this result as normal/abnormal. RUSS (test code = RUSS) The [facility] patient population mean normal value for aPTT is 30 seconds. Lab Interpretation (test code = 75790-2) Normal [facility]vinePROTHROMBIN TIME / [id number] 15:06:55* Test Item Value Reference Range Interpretation Comme [facility] PROTIME PATIENT (test code = 5964-2) See_Comment [Automated messa ge] The system which generated this result transmitted reference range: 12.0 - 14.7 Seconds. The reference range was not used to interpret this result as normal/abnormal. INR (test code = 6301-6) Normal INR <1.1; Warfarin Therapeutic range 2.0 to 3.0 or 2.5 to 3.5, depending upon the indications. Lab Interpretation (test code = 74326-2) Normal [facility] WITH [id number] 14:52:54* Test Item Value Reference Range Interpretation Comme nts WBC (test code = 6690-2) See_Comment [Automated [employer] ge] The system which generated this result transmitted reference range: 4.30 - 11.10 10*3/?L. The reference range was not used to interpret this result as normal/abnormal. RBC (test code = 789-8) See_Comment [Automated [employer] ge] The system which generated this result transmitted reference range: 3.93 - 5.25 10*6/?L. The reference range was not used to interpret this result as normal/abnormal. HGB (test code = 718-7) 13.6 g/dL 11.6-15.0 HCT (test code = 4544-3) 39.9 % 35.7-45.2 MCV (test code = 787-2) 89.3 fL 80.6-95.5 MCH (test code = 785-6) 30.4 pg 25.9-32.8 MCHC (test code = 786-4) 34.1 g/dL 31.6-35.1 RDW-SD (test code = 76847-6) 40.9 fL 39.0-49.9 RDW-CV (test code = 788-0) 12.5 % 12.0-15.5 PLT (test code = 777-3) See_Comment L [Automated messa ge] The system which generated this result transmitted reference range: 166 - 358 10*3/?L. The reference range was not used to interpret this result as normal/abnormal. MPV (test code = 30062-4) 10.3 fL 9.5-12.9 NRBC/100 WBC (test code = 1866215715) See_Comment [Automated [employer] ssage] The system which generated this result transmitted reference range: 0.0 - 10.0 /100 WBCs. The reference range was not used to interpret this result as normal/abnormal. NRBC x10^3 (test code = 0945362682) <0.01 See_Comment [Automated messa ge] The system which generated this result transmitted reference range: 10*3/?L. The reference range was not used to interpret this result as normal/abnormal. GRAN MAT (NEUT) % (test code = 770-8) 70.2 % IMM GRAN % (test code = 0661193757) 0.20 % LYMPH % (test code = 736-9) 20.5 % MONO % (test code = 5905-5) 6.9 % EOS % (test code = 713-8) 1.7 % BASO % (test code = 706-2) 0.5 % GRAN MAT x10^3(ANC) (test code = 4538182717) 4.08 10*3/uL 1.88-7.09 IMM GRAN x10^3 (test code = 4646406939) <0.03 0.00-0.06 LYMPH x10^3 (test code = 731-0) 1.19 10*3/uL 1.32-3.29 L MONO x10^3 (test code = 742-7) 0.40 10*3/uL 0.33-0.92 EOS x10^3 (test code = 711-2) 0.10 10*3/uL 0.03-0.39 BASO x10^3 (test code = 704-7) 0.03 10*3/uL 0.01-0.07 Lab Interpretation (test code = 89187-0) [facility]normal [facility] PAN[facility] 21 + LACTIC [id number] 14:45:11* Test Item Value Reference Range Interpretation Comme nts PH (test code = 7977098658) 7.32-7.42 PCO2 KINDRA (test code = 8511813607) See_Comment [Automated messa ge] The system which generated this result transmitted reference range: 41 - 51 mmHg. The reference range was not used to interpret this result as normal/abnormal. PO2 KINDRA (test code = 4851573365) See_Comment [Automated messa ge] The system which generated this result transmitted reference range: 25 - 40 mmHg. The reference range was not used to interpret this result as normal/abnormal. HCO3 KINDRA (test code = 5556995959) See_Comment [Automated messa ge] The system which generated this result transmitted reference range: 24 - 28 mEq/L. The reference range was not used to interpret this result as normal/abnormal. AC VBE(BEAKER) (test code = 2833643849) mEq/L THB KINDRA (test code = 3059796586) 13.8 g/dL 12.0-16.0 %O2HB KINDRA (test code = 3082608494) 59.6 % 52.0-63.0 %COHB KINDRA (test code = 3539624531) 1.8 % 0.0-1.5 H %METHB KINDRA (test code = 1962583881) 0.3 % 0.4-1.5 L VOL%O2 KINDRA (test code = 1850894546) 11.5 % 6.0-12.0 NA (test code = 4588041586) 137 mmol/L 135-145 K+ (test code = 0132025596) 4.2 mmol/L 3.5-5.0 AC CA IONZ (test code = 8730240450) 4.60 mg/dL 4.50-5.30 GLUCOSE (test code = 2827794468) 248 mg/dL 70-110 H LACTIC ACID (test code = 7952941597) 1.79 mmol/L 0.50-2.20 Lab Interpretation (test code = 18460-3) [facility]normal [facility]vine[facility]IPASE2022-[facility]-08 07:16:20* Test Item Value Reference Range Interpretation Comme nts LIPASE (test code = 0130037310) 228 U/L 0-220 H Lab Interpretation (test cod e = 42768-4) Abnormal [facility]vineTROP[facility]IN [id number] 05:59:12* Test Item Value Reference Range Interpretation Comments TROPONIN I (test code = 2146022369) 0.003 ng/mL See_Comment [Automated message] The system which generated this result transmitted reference range: <=0.034. The reference range was not used to interpret this result as normal/abnormal. RUSS (test code = RUSS) Reference (Normal) Range (defined by the 99th percentile reference [...] to patient's use of biotin. Lab Interpretation (test code = 15474-9) Normal [facility]. METABOLIC PANEL (01235)2021-12-06 05:49:12* Test Item Value Reference Range Interpretation Comme nts NA (test code = 1509726441) 135 mmol/L 135-145 K (test code = 8124554280) 4.4 mmol/L 3.5-5.0 CL (test code = 7405207765) 101 mmol/L 98-108 CO2 TOTAL (test code = 2648439855) 26 mmol/L 23-31 AGAP (test code = 3300809319) 2-16 BUN (test code = 6461463651) 15 mg/dL 7-23 GLUCOSE (test code = 6951150257) 318 mg/dL 70-110 H CREATININE (test code = 4467359508) 0.70 mg/dL 0.50-1.04 TOTAL BILI (test code = 0251821356) 0.5 mg/dL 0.1-1.1 CALCIUM (test code = 3511802448) 9.3 mg/dL 8.6-10.6 T PROTEIN (test code = 5497458259) 8.0 g/dL 6.3-8.2 ALBUMIN (test code = 0497339474) 4.4 g/dL 3.5-5.0 ALK PHOS (test code = 2856592508) 189 U/L 34-122 H ALTv (test code = 1742-6) 135 U/L 5-35 H AST(SGOT) (test code = 3956223625) 173 U/L 13-40 H eGFR (test code = 0180789977) mL/min/1.73m2 RUSS (test code = RUSS) Association of [...] or abnormalities in imaging tests). Lab Interpretation (test code = 74498-9) Abnormal [facility] WITH [id number] 04:44:46* Test Item Value Reference Range Interpretation Comme nts WBC (test code = 6690-2) See_Comment [[employer] The system which generated this result transmitted reference range: 4.30 - 11.10 10*3/?L. The reference range was not used to interpret this result as normal/abnormal. RBC (test code = 789-8) See_Comment [[employer] The system which generated this result transmitted reference range: 3.93 - 5.25 10*6/?L. The reference range was not used to interpret this result as normal/abnormal. HGB (test code = 718-7) 13.5 g/dL 11.6-15.0 HCT (test code = 4544-3) 39.0 % 35.7-45.2 MCV (test code = 787-2) 88.2 fL 80.6-95.5 MCH (test code = 785-6) 30.5 pg 25.9-32.8 MCHC (test code = 786-4) 34.6 g/dL 31.6-35.1 RDW-SD (test code = 86675-3) 39.8 fL 39.0-49.9 RDW-CV (test code = 788-0) 12.3 % 12.0-15.5 PLT (test code = 777-3) See_Comment [Automated messa ge] The system which generated this result transmitted reference range: 166 - 358 10*3/?L. The reference range was not used to interpret this result as normal/abnormal. MPV (test code = 83162-1) 10.9 fL 9.5-12.9 NRBC/100 WBC (test code = 9459177271) See_Comment [Automated me ssage] The system which generated this result transmitted reference range: 0.0 - 10.0 /100 WBCs. The reference range was not used to interpret this result as normal/abnormal. NRBC x10^3 (test code = 4340436734) <0.01 See_Comment [Automated me ssage] The system which generated this result transmitted reference range: 10*3/?L. The reference range was not used to interpret this result as normal/abnormal. GRAN MAT (NEUT) % (test code = 770-8) 64.7 % IMM GRAN % (test code = 1025554551) 0.30 % LYMPH % (test code = 736-9) 25.5 % MONO % (test code = 5905-5) 7.1 % EOS % (test code = 713-8) 1.9 % BASO % (test code = 706-2) 0.5 % GRAN MAT x10^3(ANC) (test code = 0325899229) 3.80 10*3/uL 1.88-7.09 IMM GRAN x10^3 (test code = 0926984304) <0.03 0.00-0.06 LYMPH x10^3 (test code = 731-0) 1.50 10*3/uL 1.32-3.29 MONO x10^3 (test code = 742-7) 0.42 10*3/uL 0.33-0.92 EOS x10^3 (test code = 711-2) 0.11 10*3/uL 0.03-0.39 BASO x10^3 (test code = 704-7) 0.03 10*3/uL 0.01-0.07 [facility] Consult Notes Date/Time Note Provider Source 2023-12-22 20:07:03 [id number]:07:03Associated Order(s): CONSULT CARDIOLOGY [facility] Cardiology ConsultPCP: Britney Rick Green [facility]hillDate of Service: 4CHIEF COMPLAINT/reason for consult: Chest painHISTORY OF PRESENT ILLNESSThis is a 53 years old female with past medical history of diabetes, hypertension, hyperlipidemia, former smoker and family history of premature CAD. The patient came to [facility] due to chest pain and headache. For the past 2 to 3 days she has been having precordial chest heaviness radiating to the right neck, associated with dyspnea and nausea. Also reported headache. The chest pain is not exertional. EKG is normal. Troponin has been negative. Also reported dyspnea exertion. History of smoking for 20 years. Her father from heart attack at 55.PAST MEDICAL HISTORYPast Medical History:Diagnosis DateDiabetesHyperlipidemiaHypertensionPast Surgical History:Procedure Laterality DateCOLONOSCOPY N/A 12/08/2016Surgeon: Yazan Varela MD; [facility] 05/24/2017Surgeon: Elio Barker MD; [facility] RE[facility] Right 12/06/2015Surgeon: Gilmer Jimenez; [facility]Family HistoryProblem Relation Age of OnsetPulmonary MotherCOPDALLERGIESAllergiesAllergen ReactionsIbuprofen AnxietyPt has been taking advil at home without any issuesMEDICATIONSNo current facility-administered medications on file prior to encounter.Current Outpatient Medications on File Prior to EncounterMedication Sig Dispense Refillpantoprazole 40 mg EC tablet Take 1 tablet by mouth in the morning and 1 tablet in the evening. 60 tablet 1albuterol 90 mcg/actuation inhaler Inhale 2 Puffs every 6 (six) hours as needed for Wheezing or Shortness of Breath. 8.5 g 0dextromethorphan-guaifenesin 10-100 mg/5 mL solution Take 10 mL by mouth every 6 (six) hours as needed for Cough. 120 mL 0levoFLOXacin (LEVAQUIN) 500 mg tablet Take 1 tablet by mouth every 24 (twenty-four) hours. 7 tablet 0predniSONE 20 mg tablet Take 3 tablets by mouth every morning. 15 tablet 0glipiZIDE XL 2.5 mg 24 hr tablet Take 1 tablet by mouth daily with breakfast. 30 tablet 0metFORMIN 1,000 mg tablet Take 1 tablet by mouth in the morning and 1 tablet in the evening. Take with meals. 60 tablet 0ondansetron 4 mg disintegrating tablet Take 1 tablet by mouth every 8 (eight) hours as needed for Nausea and Vomiting (N/V). 12 tablet 0ciprofloxacin HCl 500 mg tablet Take 1 tablet by mouth in the morning and 1 tablet in the evening. 14 tablet 0dicyclomine 20 mg tablet Take 1 tablet by mouth 4 (four) times daily as needed for Abdominal pain. 20 tablet 0ondansetron 4 mg disintegrating tablet Take 1 tablet by mouth every 8 (eight) hours as needed for Nausea and Vomiting (N/V). 15 tablet 0glipiZIDE XL 2.5 mg 24 hr tablet Take 1 tablet by mouth daily with breakfast. 30 tablet 2lovastatin 40 mg tablet Take 1 tablet by mouth at bedtime. 30 tablet 2CANAGLIFLOZIN (INVOKANA ORAL) Take 1,000 mg by mouth 2 (two) times daily.traMADOL (ULTRAM) 50 mg tablet Take 1 tablet by mouth every 12 (twelve) hours as needed for Pain unrelieved by non-narcotic analgesics.SOCIAL HISTORYSocial HistorySocioeconomic HistoryMarital status: DivorcedTobacco UseSmoking status: FormerPacks/day: .2Types: CigarettesSmokeless tobacco: NeverTobacco comments:Quit smoking over 8 months agoSubstance and Sexual ActivityAlcohol use: NoAlcohol/week: 0.0 standard drinks of alcoholDrug use: NoREVIEW OF SYSTEMSAt least 10 systems reviewed, negative except as mentioned in HPIPHYSICAL EXAMINATIONVitals:12/22/23 1310 12/22/23 1711 12/22/23 1800 12/22/23 1900BP: (!) 148/81 (!) 164/88 (!) 179/92 (!) 141/83Pulse: 90 78 80 68Resp: 16 14 10 16Temp: 36.9 ?C (98.4 ?F) 36.1 ?C (96.9 ?F)TempSrc: Oral Temporal ArterySpO2: 100% 100% 100% 99%Weight: 73.5 kg (162 lb) 74 kg (163 lb 1.6 oz)Height: 1.575 m (5' 2") 1.575 m (5' 2")Constitutional: alert and oriented x 3 (person, place and date/time); no apparent distressENT: normocephalic atraumatic, supple, no lymphadenopathy, no bruits, no JVDLungs: clear to auscultation bilaterallyCardiovascular: S1, S2 normal, regular; no murmurs, rubs or gallopsGI: soft; non-tender; non-distended; normoactive bowel soundsGU: not examinedMusculoskeletal: Extremities: no clubbing, cyanosis, or edemaSkin: no rashesNeuro: no focal deficitsLABS - reviewed pertinent labs as below:CBC BMP PT/INRWBC (10*3/?L)Date Value12/22/2023 7.22NA (mmol/L)Date Value12/22/2023 127 (L)No results found for: "PT"PLT (10*3/?L)Date Value12/22/2023 167K (mmol/L)Date Value12/22/2023 4.4INR (no units)Date Value12/10/2022 0.9HGB (g/dL)Date Value12/22/2023 14.0BUN (mg/dL)Date Value12/22/2023 18HCT (%)Date Value12/22/2023 39.9CREATININE (mg/dL)Date Value12/22/2023 0.86LIPID PROFILEGLUCOSE (mg/dL)Date Value12/22/2023 737 (HH)CHOL (mg/dL)Date Value01/21/2023 227 (H)TSH LDL CHOL (mg/dL)Date Value01/21/2023 140TSH (mIU/L)Date Value12/22/2023 1.01CARDIAC ENZYMES HDL (mg/dL)Date Value01/21/2023 45 (L)No results found for: "CK" TRIG (mg/dL)Date Value01/21/2023 211 (H)LFTs No results found for: "CKMB"AST(SGOT) (U/L)Date Value12/22/2023 19TROPONIN I (ng/mL)Date Value12/22/2023 0.001ALT(SGPT) (U/L)Date Value10/07/2017 67 (H)ALTv (U/L)Date Value12/22/2023 22No results found for: "BNP"IMAGING - reviewed, pertinent results as below: Chest z-age-zyrmuHTJ: Normal EKGASSESSMENT/PLANPrincipal Problem:Chest pain, unspecified typeActive Problems:Essential hypertensionType 2 diabetes mellitus without complicationTobacco abuseFamily history of early CADCoronary artery calcificationChest pain-mixed features. No acute EKG changes. Continue to trend troponin to rule out myocardial infarction. Recommend to continue aspirin. Continue high intensity Lipitor. Consider low-dose beta-bradford if blood pressure and heart rate can tolerate. Echocardiogram to assess ejection fraction, wall motion and pericardial space. Consider ischemia workup once hyperglycemia is better controlled.Coronary artery calcification-I reviewed her CT scan of the chest. Mild coronary artery calcification. Continue aspirin and high intensity statins. Consider ischemic workup.Hypertension-her blood pressure is elevated. Continue HCTZ and lisinopril. Consider adding low-dose beta-bradford.Type 2 diabetes-given uncontrolled diabetes and elevated cholesterol levels, continue high intensity Lipitor.Thank you for allowing us to participate in the care of your patient. Please feel free to contact us for any questions or if we can be of further assistance.Charlene Crisostomo MD, FACC, FASEAssociate ProfessorDivision of Cardiovascular MedicineBaylor Scott & [facility] [address]-0Bbartge aymcWU1331-66-02E92:11:51Consult [id number]|2006 110574MAUvefryeui for patient ytqa54035-0Csrfuxf noteLNNARRATIVEFormatted C-CDA narrative textUTNEW MEXICO BEHAVIORAL HEALTH IN[facility] - [address] Zq[id number] ASJGJLWNIJ8723-44-34S72:11:511.2.840.641202.1.72 .3.15|1.2.840.208707.1.13.104.2.7.2.727879_20072 [address] [facility] History and Physical Notes Date/Time Note Provider Source 2023-12-22 20:45:00 [id number]:45:00F ormatting of this note is different from the original.Medicine History & PhysicalDate of Service: 12/23/2023t presents from: HomeCC: Blurred vision, peripheral tingling, headache, chest painHistory of Present Illness:Hue Case is a 53 year old female with a PMH of HTN, DM II, HLD, sclerosing mesenteritis and NAFLD/ZUÑIGA who presented to the ED for hyperglycemia.Patient has had diabetes for years, previously controlled with metformin. She states that her PCP has been trying to add insulin to her medication regimen, but when she goes to fill the prescription the insulin chosen by her PCP is too expensive and not on her insurance formulary plan. She has [employer] insurance. Additionally she has run out of metformin and has not taken it for 1 week. Starting 4 days ago she started having headache and chest pain. The symptoms have worsened which prompted her presentation. In addition she notes polyuria, polydipsia, blurred vision, peripheral paresthesias.Glucose on arrival was 737. She has associated hyponatremia. Her A1c is greater than 14. She does not have an elevated anion gap.ROS: Pt denies fever / chills / nausea / vomiting / diarrhea / constipation / chest pain / SOB / cough / abdominal pain / dysuria / hematuria / melena / hematochezia / rashes / suicidal or homicidal ideation / All others negativeReview of Hx/Meds:No current facility-administered medications on file prior to encounter.Current Outpatient Medications on File Prior to EncounterMedication Sig Dispense Refillpantoprazole 40 mg EC tablet Take 1 tablet by mouth in the morning and 1 tablet in the evening. 60 tablet 1albuterol 90 mcg/actuation inhaler Inhale 2 Puffs every 6 (six) hours as needed for Wheezing or Shortness of Breath. 8.5 g 0dextromethorphan-guaifenesin 10-100 mg/5 mL solution Take 10 mL by mouth every 6 (six) hours as needed for Cough. 120 mL 0levoFLOXacin (LEVAQUIN) 500 mg tablet Take 1 tablet by mouth every 24 (twenty-four) hours. 7 tablet 0predniSONE 20 mg tablet Take 3 tablets by mouth every morning. 15 tablet 0glipiZIDE XL 2.5 mg 24 hr tablet Take 1 tablet by mouth daily with breakfast. 30 tablet 0metFORMIN 1,000 mg tablet Take 1 tablet by mouth in the morning and 1 tablet in the evening. Take with meals. 60 tablet 0ondansetron 4 mg disintegrating tablet Take 1 tablet by mouth every 8 (eight) hours as needed for Nausea and Vomiting (N/V). 12 tablet 0ciprofloxacin HCl 500 mg tablet Take 1 tablet by mouth in the morning and 1 tablet in the evening. 14 tablet 0dicyclomine 20 mg tablet Take 1 tablet by mouth 4 (four) times daily as needed for Abdominal pain. 20 tablet 0ondansetron 4 mg disintegrating tablet Take 1 tablet by mouth every 8 (eight) hours as needed for Nausea and Vomiting (N/V). 15 tablet 0glipiZIDE XL 2.5 mg 24 hr tablet Take 1 tablet by mouth daily with breakfast. 30 tablet 2lovastatin 40 mg tablet Take 1 tablet by mouth at bedtime. 30 tablet 2CANAGLIFLOZIN (INVOKANA ORAL) Take 1,000 mg by mouth 2 (two) times daily.traMADOL (ULTRAM) 50 mg tablet Take 1 tablet by mouth every 12 (twelve) hours as needed for Pain unrelieved by non-narcotic analgesics.I have reviewed the patient's home medicationsPMH:Past Medical History:Diagnosis DateDiabetesHyperlipidemiaHyperten sionPSH: has a past surgical history that includes open carpal tunnel release (Right, 12/06/2015); colonoscopy (N/A, 12/08/2016); and lipoma excision (Left, 05/24/2017).Family Hx:Social HistoryTobacco UseSmoking status: FormerPacks/day: .2Types: CigarettesSmokeless tobacco: NeverTobacco comments:Quit smoking over 8 months agoSubstance Use TopicsAlcohol use: NoAlcohol/week: 0.0 standard drinks of alcoholDrug use: NoCurrent Scheduled Medications Current IVCurrent Facility-Administered Medications:insulin glargine (LANTUS U-100) injection 10 Units, 10 Units, Subcutaneous, QHS, Cb Louie MDKCL (KLOR-CON M20) tablet 40 mEq, 40 mEq, Oral, ONCE, Cb Louie MDmagnesium oxide (MAG-OX 400) tablet 800 mg, 800 mg, Oral, ONCE, Cb Louie MDacetaminophen (TYLENOL) tablet 1,000 mg, 1,000 mg, Oral, Q6HPRN, Cb Louie MD, 1,000 mg at 12/22/23 2202aspirin EC tablet 81 mg, 81 mg, Oral, DAILY, Guanakito Hooper MDatorvastatin (LIPITOR) tablet 40 mg, 40 mg, Oral, QHS, Guanakito Hooper MD, 40 mg at 12/22/23 2772ksxqkdxctn-osobwdchwejaz-kpqz (ESGIC) 50-325-40 mg tablet 1 tablet, 1 tablet, Oral, Q4HPRN, Cb Louie MDdextrose 50 % in water (D50W) injection 25 mL, 25 mL, Slow IV Push, PRN, Guanakito Hooper MDenoxaparin (LOVENOX) injection 40 mg, 40 mg, Subcutaneous, DAILY, Guanakito Hooper MD, 40 mg at 12/22/23 1731glucagon (GLUCAGEN DIAGNOSTIC KIT) injection 1 mg, 1 mg, Intramuscular, PRN, Guanakito Hooper MDhydralAZINE (APRESOLINE) injection 10 mg, 10 mg, Slow IV Push, Q4HPRN, Guanakito Hooper MDhydroCHLOROthiazide (ESIDRIX) tablet 25 mg, 25 mg, Oral, DAILY, Guanakito Hooper MD, 25 mg at 12/22/23 193HYDROcodone-acetaminophen (NORCO 5) 5-325 mg tablet 1 tablet, 1 tablet, Oral, Q6HPRN, Guanakito Hooper MDlisinopriL (PRINIVIL,ZESTRIL) tablet 20 mg, 20 mg, Oral, BID, Guanakito Hooper MD, 20 mg at 12/22/231931metFORMIN (GLUCOPHAGE) tablet 1,000 mg, 1,000 mg, Oral, BID MEALS, Guanakito Hooper MD, 1,000 mg at 12/22/23 173morpHINE (2 mg/mL) injection 4 mg, 4 mg, Slow IV Push, Q4HPRN, Guanakito Hooper MDondansetron (ZOFRAN (PF)) injection 4 mg, 4 mg, Slow IV Push, Q6HPRN, Guanakito Hooper MDpantoprazole (PROTONIX) EC tablet 40 mg, 40 mg, Oral, BID, Guanakito Hooper MD, 40 mg at 12/22/23 1932Sliding Scale Insulin - Lispro (HumaLOG), , Subcutaneous, Q4H, Guanakito Hooper MD, 2 Units at 12/23/23 0417traZODone (DESYREL) tablet 50 mg, 50 mg, Oral, QHS, Cb Louie MD, 50 mg at 12/22/237Objective:Vitals:Vitals: 2350 12/22/23 2355 12/23/23 0300 12/23/23 0411BP: (!) 83/54 (!) 82/53 91/56Pulse: 59 57 60Resp: 17 15 13Temp: 35.8 ?C (96.5 ?F) 35.9 ?C (96.7 ?F)TempSrc:SpO2: 92% 95% 96%Weight:Height:I/O's:No intake or output data in the 24 hours ending 12/23/23 0646Physical Exam:Constitutional: A&O x3, well-developed, well-nourished, and in no distress.Head: Normocephalic and atraumatic.Eyes: PERRL. Conjunctivae and EOM are normal.Neck: Normal range of motion. Neck supple. No JVD present.Cardiovascular: Normal rate, regular rhythm, normal heart soundsPulmonary/Chest: Effort normal and breath sounds normal. No respiratory distress. No wheezes, rales or rhonchi.Abdominal: Soft. Bowel sounds are normal. No TTP, non-distended and no masses. No rebound or guarding.Musculoskeletal: Normal range of motion. No edema or tenderness.Lymphadenopathy: No cervical adenopathy.Neurological: A&O x3. No focal deficits. Gait normal.Skin: Skin is warm and dry. No rash noted. No erythema. No pallor.Labs:BMP:BMPNA (mmol/L)Date Value12/23/2023 133 (L)12/22/2023 127 (L)01/03/2023 134 (L)12/10/2022 9699511/30/2022 132 (L)K (mmol/L)Date Value12/23/2023 3.3 (L)12/22/2023 4.402 5.001 4.001 3.9CALCIUM (mg/dL)Date Value12/23/2023 8.701 9.502 9.501/10/2023 9.301 8.7CL (mmol/L)Date Value12/23/2023 9912/22/2023 92 (L)01/03/2023 98012/10/2022 98011/30/2022 98BUN (mg/dL)Date Value12/23/2023 21012/22/2023 18001/03/2023 14CREATININE (mg/dL)Date Value12/23/2023 0.78012/22/2023 0.8602 0.9601 0.7901 0.69GLUCOSE (mg/dL)Date Value12/23/2023 214 (H)12/22/2023 737 (HH)01/03/2023 518 (HH)12/10/2022 224 (H)11/30/2022 282 (H)CO2 TOTAL (mmol/L)Date Value12/23/2023 26012/22/2023 28001/03/2023 2601/10/2023 2401/12/2022 27CBC:CBCWBC (10*3/?L)Date Value12/22/2023 7.22RBC (10*6/?L)Date Value12/22/2023 4.70PLT (10*3/?L)Date Value12/22/2023 167HGB (g/dL)Date Value12/22/2023 14.0HCT (%)Date Value12/22/2023 39.9BMP:Hepatic Function PanelALBUMIN (g/dL)Date Value12/22/2023 4.2T PROTEIN (g/dL)Date Value12/22/2023 7.8TOTAL BILI (mg/dL)Date Value12/22/2023 0.7BILI UNCON (mg/dL)Date Value10/07/2017 0.0 (L)BILI CONJ (mg/dL)Date Value10/07/2017 0.0ALT(SGPT) (U/L)Date Value10/07/2017 67 (H)ALTv (U/L)Date Value12/22/2023 22AST(SGOT) (U/L)Date Value12/22/2023 19ALK PHOS (U/L)Date Value12/22/2023 147 (H)Troponin:Recent [id number] 0.005I have reviewed all relevant labsImaging:XR CHEST 1 VWResult Date: 12/22/2023EXAM: XR CHEST 1 VW HISTORY: 53 years-old Female with chest pain . TECHNIQUE: Single frontal view of the chest. COMPARISON: Chest radiograph dated 12/10/2022 FINDINGS: Lungs and pleura: The lungs are adequately expanded. No focal opacities, pleural effusion or pneumothorax is visualized. Heart/Mediastinum: The cardiac silhouette appears normal. Bones and soft tissues: No acute osseous abnormality is visualized.No acute cardiopulmonary process. Preliminary Report Dictated by Resident: Ligia Chiang MD., have reviewed this study and agree with the above report.CT HEAD WO CONTRASTResult Date: 12/22/2023EXAM: CT HEAD WO CONTRAST HISTORY: 53 years-old Female; Provided indication: Headache, new or worsening. TECHNIQUE: Axial CT of the head was performed and reconstructed at 5 mm intervals. Coronal and sagittal reformatted images were generated. COMPARISON: None FINDINGS: The ventricles and cerebral sulci are normal in caliber and configuration. No midline shift or pathological extra-axial fluid collection is present. The basal cisterns are unremarkable. No acute intracranial hemorrhage or significant mass effect is visualized. No parenchymal attenuation abnormality is seen. The alarcon-white matter differentiation is preserved. The mastoid air cells and paranasal air sinuses are clear. The calvarium and central skull base are unremarkable.No acute intracranial abnormality.Assessment and plan:Principal Problem:Chest pain, unspecified typeActive Problems:Essential hypertensionType 2 diabetes mellitus without complicationTobacco abuseFamily history of early CADCoronary artery calcificationHue Case is a 53 year old female with a PMH of HTN, DM II, HLD, sclerosing mesenteritis and NAFLD/ZUÑIGA who presented to the ED for hyperglycemia.DjmcwtwvlpwabQK7Bvq to medication noncompliance. A1c greater than 14.- Resume home metformin 1000 mg twice daily- Initiate Lantus therapy, 10 units twice daily- SSI, Accu-CheksHyperlipidemia, uncontrolledNASH- Atorvastatin 40DVT prophylaxis: LovenoxAdvanced Care Planning ( Z71.89 )Above assessment and plan discussed at length with patient, patient expressed full understanding. Questions and concerns addressed I spent 18 minutes discussing the advance care planning.Advanced Directive Maker: SelfLevel of comfort: N/ACode Status: FullTobacco user (Z71.6)Patient counseled at length and Pt expressed full understanding, Time discussed 3 minutesDisposition: Admit to inpatient Signed:[place] [address]-2Wbloefx and physical gnvuRX4856-94-48M89:48:42History and physical noteTXT1.2.840.316909.1.13.104.2.7 .2.582121|[id number] for patient lrvt06755-3Zkdlbtr and physical noteLNNARRATIVEFormatted C-CDA narrative textIM-INTERNAL MEDICINE STAFFIM-INTERNAL MEDICINE STAFFPARK SANITARIUM - [id number] 22WSATQOLXFYAXYZKNRXPEEC8341-83-04 T06:48:421.2.840.168688.1.72.3.15| 1.2.840.778407.1.13.104.2.7.2.7278 [id number] IM-INTERNAL MEDICINE STAFF [facility] Notes Date/Time Note Provider Source 2024-02-15 10:38:50 8639-91-90L34:38:50Formatting of this no te is different from the original.Chief ComplaintPatient presents withFollow-upDM pt has questions about medicationsJeri Horace Floodectronically signed by Miri Flood LVN at 02/15/2024 10:39 AM [id number] YqeqKG3407-37-73X75:39:07Nurse NoteTXT1.2.840.639704.1.13.131.2.7.2.897164|38285 5605AVAvailable for patient ucas54827-1Ubpyu NoteLNNARRATIVEFormatted C-CDA narrative textH[facility] [facility] [id number] 0:39:071.2.840.537299.1.72.3.15|1.2.840.467754.1. 13.131.2.7.2.727879_[id number] [facility] 2024-01-24 14:28:21 2399-46-92D94:28:21Formatting of this no te might be different from the original.Patient was checked in at 12:28pm for a 2:00 appointment with Rodney Coleman NP. I attempted to call patient twice and commuincated with the front end mechanic in regards to patient. I also attempted to contact patient 4 times on her cell phone to let her know we were ready for her. Each time I called patient's phone stated that she was not taking calls at this time. 73244-9Gukhlytfx encounter DbssIU2895-33-05X08:30:49Telephone encounter NoteTXT1.2.840.185927.1.13.104.2.7.2.025040| 39113XVMihjesufz for patient xwxf76192-4RhbsPMQGDUQFPRBCyhkkwctl C-Associated Material ProcessingA narrative MobileDay[address] [id number] AREA HOSPITALENCKEAZUC9291-61-66S56:30:491.2.840.660591.1.72.3 .15|1.2.840.565303.1.13.104.2.7.2.727879_[id number] [facility] 2023-12-27 08:34:37 8584-51-88T88:34:37Formatting of this no te might be different from the original.The patient was seen in the hospital for chest pain. Recommend Lexiscan nuclear stress test to assess ischemia. 84287-1Frgzqdthe encounter RgkxWW5476-70-53F19:35:44Telephone encounter NoteTXT1.2.840.029268.1.13.104.2.7.2.312377| 79084UPLmhcbcvgi for patient uiqn53035-9ZgwoZYXMQXFJASCBfkymesjd C-CDA narrative textUT71 M[address] [id number] AREA HOSPITALXBZJKSAPW2294-38-72A48:35:441.2.840.369099.1.72.3 .15|1.2.840.836486.1.13.104.2.7.2.727879_[id number] 35 [facility] 2023-12-24 13:59:11 3860-35-34L61:59:11Formatting of this no te might be different from the original.Problem: PainGoal: Control of pain at or below patient's documented comfort goalOutcome: ResolvedGoal: Reduction in pain sensationOutcome: ResolvedProblem: Discharge PlanningGoal: Adequate for dischargeOutcome: ResolvedGoal: Adequate to move to next level of careOutcome: ResolvedGoal: Knowledge of medication managementOutcome: ResolvedProblem: Glucose controlGoal: Glucose level within specified parametersOutcome: ResolvedProblem: Nutrition DeficitGoal: Adequate nutritional intakeOutcome: Resolved 42469-5Ubgp of care jgtzTK1958-15-58F04:59:17Plan of care noteTXT1.2.840.084600.1.13.104.2.7.2.542992|81053 70976CLXwwktxopj for patient doag41404-6BngnVNTDEKSLBIKLfbsviquj C-CDA narrative [id number] Hernandez RNUT[id number]2024-01-26T13:59:171.2.840.308733.1.72.3 .15|1.2.840.241240.1.13.104.2.7.2.727879_[id number] 64 Edwar Govea RN [facility] 2023-12-23 23:45:47 2527-70-48W17:45:47Formatting of this no te might be different from the original.Problem: PainGoal: Control of pain at or below patient's documented comfort goalOutcome: Progressing as expectedGoal: Reduction in pain sensationOutcome: Progressing as expectedProblem: Discharge PlanningGoal: Adequate for dischargeOutcome: Progressing as expectedGoal: Adequate to move to next level of careOutcome: Progressing as expectedGoal: Knowledge of medication managementOutcome: Progressing as expectedProblem: Glucose controlGoal: Glucose level within specified parametersOutcome: Progressing as expectedProblem: Nutrition DeficitGoal: Adequate nutritional intakeOutcome: Progressing as expected 56458-2Hzgy of care tyewGI7696-92-59D29:45:53Plan of care noteTXT1.2.840.900610.1.13.104.2.7.2.950966|31179 02909NIAwrpqvrec for patient msgf49879-4ZiqlVMUXQFFLLJOOiphxahnv C-CDA narrative [id number] Perez RN[address] [id number] AREA HOSPITALVLWSGGXTZ7789-24-45T64:45:531.2.840.352073.1.72.3 .15|1.2.840.915182.1.13.104.2.7.2.727879_[id number] 35 Sasha Meneses RN [facility] 2023-12-23 07:59:16 3674-73-93S15:59:16Formatting of this no te might be different from the original.Problem: PainGoal: Control of pain at or below patient's documented comfort goalOutcome: Progressing as expectedGoal: Reduction in pain sensationOutcome: Progressing as expectedProblem: Discharge PlanningGoal: Adequate for dischargeOutcome: Progressing as expectedGoal: Adequate to move to next level of careOutcome: Progressing as expectedGoal: Knowledge of medication managementOutcome: Progressing as expectedProblem: Glucose controlGoal: Glucose level within specified parametersOutcome: Progressing as expectedProblem: Nutrition DeficitGoal: Adequate nutritional intakeOutcome: Progressing as expected 72620-7Iqza of care yinpMT4301-09-13C43:59:22Plan of care noteTXT1.2.840.220147.1.13.104.2.7.2.458812|35927 07069GYTtcxfzekd for patient tprn60519-3JpcnCCHCICZSUXFWlhlfpbbv C-CDA narrative zvuy133429255Hvpxdd H Morgan RN[id number] AREA HOSPITALMRVBOVNVL3835-45-70H10:59:221.2.840.940743.1.72.3 .15|1.2.840.482259.1.13.104.2.7.2.727879_[id number] 24 Young Arora RN [facility] 2023-12-22 20:30:23 8601-54-45C17:30:23Associated Order(s): Critical Care Critical CarePerformed by: Jonathan Baez MDAuthorized by: Jonathan Baez [facility] – NORMANritical care provider statement:Critical care time (minutes): 45Critical care time was exclusive of: Separately billable procedures and treating other patients and teaching timeCritical care was necessary to treat or prevent imminent or life-threatening deterioration of the following conditions: Endocrine crisisCritical care was time spent personally by me on the following activities: Development of treatment plan with patient or surrogate, evaluation of patient's response to treatment, examination of patient, obtaining history from patient or surrogate, ordering and performing treatments and interventions, ordering and review of laboratory studies, ordering and review of radiographic studies, pulse oximetry, re-evaluation of patient's condition and review of old chartsCare discussed with: admitting providerComments:Due to a high probability of clinically significant, life threatening deterioration, the patient required my highest level of preparedness to intervene emergently and I personally spent this critical care time directly and personally managing the patient. This critical care time included obtaining a history; examining the patient; pulse oximetry; ordering and review of studies; arranging urgent treatment with development of a management plan; evaluation of patient's response to treatment; frequent reassessment; and, discussions with other providers.This critical care time was performed to assess and manage the high probability of imminent, life-threatening deterioration that could result in multi-organ failure. It was exclusive of separately billable procedures and treating other patients. 32667-7Xbnqppoyg department EtlyLG1330-83-96X87:30:23[facility] department NoteTXT1.2.840.884870.1.13.104.2.7.2.693405| 87614GFUpoqzxdsr for patient jygg69874-4GyejIXGCRLCBGBMYhlxuptwy C-CDA [facility] [employer] [id number] AREA HOSPITALOIRHFLWAQ6393-64-21S29:30:231.2.840.055331.1.72.3 .15|1.2.840.270483.1.13.104.2.7.2.727879_[id number] 45 [facility] 2023-12-22 17:50:00 4723-64-76O13:50:00Formatting of this no te might be different from the original.Patient new admit 13342-7Nxtf of care tfprLT6337-20-16O24:50:12Plan of care noteTXT1.2.840.367540.1.13.104.2.7.2.374064|70509 20683NCNavfuutkc for patient pwuq28452-8YqgmNFUIQDYMIUANudqwyhmh C-CDA [id number]2024-01-24T17:50:121.2.840.969910.1.72.3 .15|1.2.840.022977.1.13.104.2.7.2.727879_[id number] 65 [facility] 2023-12-22 16:50:17 9219-12-95N13:50:17Formatting of this no te might be different from the original.Report called to Young ZUNIGA. [address]55-3Dcxbtrzrn[address] HuxrIN6174-65-97J55:50:24[facility] department NoteTXT1.2.840.871488.1.13.104.2.7.2.296883| 12792KLTdtokgnjh for patient lams03112-7UansHYOHLWFNADNUrvfpislg C-CDA narrative acch080970206Uammfef D Wierzbicki RN[id number] AREA HOSPITALSVRBPWIPP6210-82-58D86:50:241.2.840.457012.1.72.3 .15|1.2.840.646021.1.13.104.2.7.2.727879_[id number] 89 Francis Proctor RN [facility] 2023-12-22 14:05:52 7748-35-27J53:05:52Formatting of this no te might be different from the original.Chest pain and headache x 3 days. Chest pain is worse at night. Also has been out of her insulin for 2 weeks. [address]-1Vanzcncha[address] NxriOI7957-46-54P25:06:25[facility] department NoteTXT1.2.840.146214.1.13.104.2.7.2.776538| 68248JQQgmjjhczh for patient erpl68254-5WkznHRYSAMIYRGKHyivralvr C-CDA narrative text[id number] 930524-01-24T14:06:251.2.840.751283.1.72.3 .15|1.2.840.126753.1.13.104.2.7.2.727879_[id number] 15 [facility] 2023-12-22 13:10:05 3010-38-38I94:10:05Formatting of this no te might be different from the original.Headache x3 days. 27791-9Lxvtbugjz department Triage oclsUG2198-86-12O98:10:12[facility] department Triage noteTXT1.2.840.969353.1.13.104.2.7.2.257946|15748 31576CMPqzomptdp for patient inwk86972-5Cxkpfcsds department NoteLNNARRATIVEFormatted C-CDA narrative [id number] Fief RN[address] ChtyCbywfsbwoQlcoavpcjIUKL2751968877VRMRVABVKWHNA ENCBMPOEJ6869-54-30T14:10:121.2.840.100952.1.72.3 .15|1.2.840.208545.1.13.104.2.7.2.727879_[id number] 37 Abilio Brower RN [facility] 2023-12-22 12:56:00 8148-55-39A25:56:00Formatting of this no te is different from the original.EMERGENCY [facility]MENT [facility]Patient Name: Hue CaseDate of : 1970 53 year oldMRN: [id number] Room:[facility] ED [facility] Physician: Britney Green [facility] HospitalPatient Escorted by: Self [9]Mode of Arrival: Personal means [1]EMS Treatment Prior to ED Arrival: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 treatment: NoneED EventsDate/Time Event User Kvpyahmq84/24/24 1327 Medical Screening Begins NESTOR VARGAS, JONATHAN S --12/22/23 1327 First Provider Evaluation NESTOR VARGAS, JONATHAN Lopez --Chief ComplaintChief ComplaintPatient presents withHeadacheED Triage Abilio Logan RN 12/22/2023 13:10Headache x3 days.HPIHistory provided by: PatientChest PainPain location: Substernal areaPain quality: pressurePain radiates to: Does not radiatePain severity: ModerateDuration: 3 daysTiming: ConstantChronicity: NewRelieved by: NothingWorsened by: NothingAssociated symptoms: headacheAssociated symptoms: no abdominal pain, no cough, no dizziness, no fatigue, no fever, no nausea, no palpitations, no shortness of breath and no vomitingPast Medical History / ImmunizationsPast Medical History:Diagnosis DateDiabetesHyperlipidemiaHypertensionTetanus received in last 5 years: YesChildhood immunizations: Av-mc-hgjzVrhx Surgical HistoryPast Surgical History:Procedure Laterality DateCOLONOSCOPY N/A 12/08/2016Surgeon: Yazan Varela MD; [facility] 05/24/2017Surgeon: Elio Barker MD; [facility]OPEN CARPAL TUNNEL RELEASE Right 12/06/2015Surgeon: Gilmer Jimenez; [facility]AllergiesAllergiesAllergen ReactionsIbuprofen AnxietyPt has been taking advil at home without any issuesSocial HistoryTobacco UseFormer; 0.20 packs/day; Types: CigarettesSmokeless Tobacco: Never used smokeless tobacco.Tobacco Cessation: Counseling given: Not AnsweredComments: Quit smoking over 8 months agoAlcohol UseNo.Drug UseNo.Review of SystemsReview of SystemsConstitutional: Negative. Negative for chills, fatigue, fever and unexpected weight change.HENT: Negative.Eyes: Negative. Negative for discharge and itching.Respiratory: Negative. Negative for cough, chest tightness, shortness of breath and wheezing.Cardiovascular: Positive for chest pain. Negative for palpitations.Gastrointestinal: Negative. Negative for abdominal distention, abdominal pain, nausea and vomiting.Genitourinary: Negative. Negative for dysuria, urgency, frequency and flank pain.Musculoskeletal: Negative.Skin: Negative. Negative for color change, pallor and wound.Neurological: Positive for headaches. Negative for dizziness, syncope and light-headedness.Psychiatric/Behavioral: Negative. Negative for agitation and behavioral problems.All other systems reviewed and are negative.Endocrine: Endocrine negativePhysical ExamED Triage Vitals [12/22/23 1310]Weight 73.5 kg (162 lb)Actual or estimated Estimated by patient/family reportHeight 1.575 m (5' 2")BP (!) 148/81Pulse 90Resp 16Temp 36.9 ?C (98.4 ?F)Temp source OralSpO2 100 %Measured on Room airPhysical ExamVitals reviewed.Constitutional:Appearance: She is well-developed.HENT:Head: Normocephalic and atraumatic.Nose: Nose normal.Eyes:Conjunctiva/sclera: Conjunctivae normal.Neck:Trachea: No tracheal deviation.Cardiovascular:Rate and Rhythm: Normal rate and regular rhythm.Heart sounds: Normal heart sounds. No murmur heard.No friction rub.Pulmonary:Effort: Pulmonary effort is normal. No respiratory distress.Breath sounds: Normal breath sounds. No stridor. No wheezing or rales.Abdominal:General: Bowel sounds are normal. There is no distension.Palpations: Abdomen is soft.Tenderness: There is no abdominal tenderness. There is no guarding or rebound.Musculoskeletal:General: Normal range of motion.Cervical back: Normal range of motion and neck supple.Skin:General: Skin is warm and dry.Neurological:Mental Status: She is alert and oriented to person, place, and time.Cranial Nerves: No cranial nerve deficit.Sensory: No sensory deficit.Psychiatric:Behavior: Behavior normal.Thought Content: Thought content normal.Judgment: Judgment normal.LabsLab ResultsCBC WITH DIFF - AbnormalResult Value Ref RangeWBC 7.22 4.30 - 11.10 10*3/?LRBC 4.70 3.93 - 5.25 10*6/?LHGB 14.0 11.6 - 15.0 g/dLHCT 39.9 35.7 - 45.2 %MCV 84.9 80.6 - 95.5 fLMCH 29.8 25.9 - 32.8 pgMCHC 35.1 31.6 - 35.1 g/dLRDW-SD 36.1 (*) 39.0 - 49.9 fLRDW-CV 11.9 (*) 12.0 - 15.5 %PLT 167 166 - 358 10*3/?LMPV 10.8 9.5 - 12.9 fLNRBC/100 WBC 0.0 0.0 - 10.0 /100 WBCsNRBC x10^3 <0.01 10*3/?LGRAN MAT (NEUT) % 77.2 %IMM GRAN % 0.30 %LYMPH % 15.2 %MONO % 4.8 %EOS % 2.1 %BASO % 0.4 %GRAN MAT x10^3(ANC) 5.57 1.88 - 7.09 10*3/uLIMM GRAN x10^3 <0.03 0.00 - 0.06 10*3/uLLYMPH x10^3 1.10 (*) 1.32 - 3.29 10*3/uLMONO x10^3 0.35 0.33 - 0.92 10*3/uLEOS x10^3 0.15 0.03 - 0.39 10*3/uLBASO x10^3 0.03 0.01 - 0.07 10*3/uLCOMP. METABOLIC PANEL (25205) - AbnormalNA 127 (*) 135 - 145 mmol/LK 4.4 3.5 - 5.0 mmol/LCL 92 (*) 98 - 108 mmol/LCO2 TOTAL 28 23 - 31 mmol/LAGAP 7 2 - 16BUN 18 7 - 23 mg/dLGLUCOSE 737 (*) 70 - 110 mg/dLCREATININE 0.86 0.50 - 1.04 mg/dLTOTAL BILI 0.7 0.1 - 1.1 mg/dLCALCIUM 9.5 8.6 - 10.6 mg/Nghia PROTEIN 7.8 6.3 - 8.2 g/dLALBUMIN 4.2 3.5 - 5.0 g/dLALK PHOS 147 (*) 34 - 122 U/LALTv 22 5 - 35 U/LAST(SGOT) 19 13 - 40 U/LeGFR 80.4 mL/min/1.20l1MYMH GLUCOSE (AUTOMATED) - AbnormalPOCT GLU 390 (*) 70 - 110 mg/dLLIPASE - NormalLIPASE 188 0 - 220 U/LTROPONIN I - NormalTROPONIN I 0.001 <=0.034 ng/mLN-TERMINAL PRO-BNP - NormalNT-proBNP 56 <=125 pg/mLImagingXR CHEST 1 VWFinal ResultEXAM: XR CHEST 1 VWHISTORY: 53 years-old Female with chest pain .TECHNIQUE: Single frontal view of the chest.COMPARISON: Chest radiograph dated 12/10/2022FINDINGS:Lungs and pleura: The lungs are adequately expanded. No focal opacities,pleural effusion or pneumothorax is visualized.Heart/Mediastinum: The cardiac silhouette appears normal.Bones and soft tissues: No acute osseous abnormality is visualized.IMPRESSIONNo acute cardiopulmonary process.Preliminary Report Dictated by Resident: Ligia Ferrera MD., have reviewed this study and agree with theabove report.CT HEAD WO CONTRASTFinal ResultEXAM: CT HEAD WO CONTRASTHISTORY: 53 years-old Female; Provided indication: Headache, new orworsening.TECHNIQUE: Axial CT of the head was performed and reconstructed at 5 mmintervals. Coronal and sagittal reformatted images were generated.COMPARISON: NoneFINDINGS:The ventricles and cerebral sulci are normal in caliber and configuration.No midline shift or pathological extra-axial fluid collection is present.The basal cisterns are unremarkable.No acute intracranial hemorrhage or significant mass effect is visualized.No parenchymal attenuation abnormality is seen. The alarcon-white matterdifferentiation is preserved.The mastoid air cells and paranasal air sinuses are clear. The calvariumand central skull base are unremarkable.IMPRESSIONNo acute intracranial abnormality.Orders and TreatmentsOrders Placed This EncounterProceduresCritical CareCT HEAD WO CONTRASTXR CHEST 1 VWCBC WITH DIFFCOMP. METABOLIC PANEL (00633)LIPASETROPONIN IN-TERMINAL PRO-BNPGlycosylated Hemoglobin (A1C)Basic Metabolic Panel (NA, K, CL, CO2, GLUCOSE, BUN, CREATININE, CA)Magnesium SerumLipid Panel (Total Cholesterol, Triglycerides, HDL)Thyroid Stimulating Hormone (TSH)Troponin IPOCT GLUCOSE (AUTOMATED)POCT GLUCOSE (AUTOMATED)POCT GLUCOSE (AUTOMATED)Consult CardiologyOrders Placed This EncounterMedicationsNaCl 0.9% (NS) bolus infusion 1,000 mLinsulin regular human (HUMULIN R) injection 4 UnitsglipiZIDE XL (GLUCOTROL XL) tablet 2.5 mgDISCONTD: atorvastatin (LIPITOR) tablet 10 mgmetFORMIN (GLUCOPHAGE) tablet 1,000 mgpantoprazole (PROTONIX) EC tablet 40 mgDISCONTD: NaCl 0.9% (NS) IV infusion 1,000 mLenoxaparin (LOVENOX) injection 40 mgacetaminophen (TYLENOL) tablet 650 mgHYDROcodone-acetaminophen (NORCO 5) 5-325 mg tablet 1 tabletmorpHINE (2 mg/mL) injection 4 mgondansetron (ZOFRAN (PF)) injection 4 mgdextrose 50 % in water (D50W) injection 25 mLglucagon (GLUCAGEN DIAGNOSTIC KIT) injection 1 mgDISCONTD: Sliding Scale Insulin - Lispro (HumaLOG)aspirin EC tablet 81 mgaspirin tablet 325 mgatorvastatin (LIPITOR) tablet 40 mglisinopriL (PRINIVIL,ZESTRIL) tablet 20 mghydroCHLOROthiazide (ESIDRIX) tablet 25 mghydralAZINE (APRESOLINE) injection 10 mgSliding Scale Insulin - Lispro (HumaLOG)insulin glargine (LANTUS U-100) injection 10 UnitsProceduresEKGTime 1408Normal sinusRate 72Axis normalIntervals normalQ wave lead IIIAbnormal EKGNotes & MDMPatient was evaluated for an emergency medical condition related to HeadacheDDXACSNon specific headacheDiagnosis/Impression as of 12/22/23 2032Chest pain, unspecified typeHyperglycemiaMedical Decision MakingProblems Addressed:Chest pain, unspecified type: acute illness or injuryAmount and/or Complexity of Data ReviewedLabs: ordered. Decision-making details documented in ED Course.Radiology: ordered and independent interpretation performed. Decision-making details documented in ED Course.ECG/medicine tests: ordered and independent interpretation performed. Decision-making details documented in ED Course.RiskOTC drugs.Prescription drug management.Parenteral controlled substances.Decision regarding hospitalization.AdmissionCareGuideline: Diabetes - INPT, InpatientBased on the indications selected for the patient, the bed status of Admit to Inpatient was determined to be METThe following indications were selected as present at the time of evaluation of the patient:Hyperglycemia requiring inpatient care, as indicated by 1 or more of the following:-- Significant electrolyte abnormality (eg, hypokalemia, hyperkalemia, hypernatremia) that persists despite observation care- Glucose level persistently too high for next level of care (eg, concern for redevelopment of dehydration, electrolyte abnormality), or not sufficiently stable despite observation careAdmissionCare documentation entered by: Jonathan NestorCEDAR [facility]ID[facility] [place] [employer] Interventional, 27th edition, Copyright ? 2022 [facility] [employer]! [facility] All Rights Reserved.[id number]:32:00-06:00Limitations to patient care and compliance: none.Assessment/Summary:The patient is a 53-year-old female who presents for headache and chest pain. She has had a 3-day history of both symptoms. She does describe a frontal headache with no alleviating or exacerbating factors. No vision changes. She admits to chest pressure. "Off like elephant sitting on my chest". She also notes that she has been noncompliant with her diabetes medication. Workup demonstrates that she has got a blood sugar greater than 700. She is not DKA. She was given IV fluids and IV insulin. First troponin is negative. EKG does not demonstrate a STEMI. The patient was admitted to the medicine service for further inpatient management.History, physical exam findings, results of visit, differential diagnosis, medication regimens and plan of future care have been considered. Additional MDM may be found in the ED course. Differential diagnosis considered and final disposition made based on information gathered during evaluation and may not be completely ruled out or specifically listed. Vital signs were rechecked before final disposition.DiagnosisFinal diagnoses:[R07.9] Chest pain, unspecified type (Primary)[R73.9] HyperglycemiaDisposition & Follow UpED DispositionED DispositionAdmit - ObservationCondition--CommentIs (or was) this a planned re-admission?: NoTreatment Team: [facility] [[id number]]Is this patient COVID positive or a patient under investigation (PUI)?: NoCurrent Discharge Medication ListSTOP taking these medicationspantoprazole 40 mg EC tablet Comments:Reason for Stopping:albuterol 90 mcg/actuation inhaler Comments:Reason for Stopping:dextromethorphan-guaifenesin 10-100 mg/5 mL solution Comments:Reason for Stopping:levoFLOXacin (LEVAQUIN) 500 mg tablet Comments:Reason for Stopping:predniSONE 20 mg tablet Comments:Reason for Stopping:glipiZIDE XL 2.5 mg 24 hr tablet Comments:Reason for Stopping:metFORMIN 1,000 mg tablet Comments:Reason for Stopping:ondansetron 4 mg disintegrating tablet Comments:Reason for Stopping:ciprofloxacin HCl 500 mg tablet Comments:Reason for Stopping:dicyclomine 20 mg tablet Comments:Reason for Stopping:ondansetron 4 mg disintegrating tablet Comments:Reason for Stopping:glipiZIDE XL 2.5 mg 24 hr tablet Comments:Reason for Stopping:lovastatin 40 mg tablet Comments:Reason for Stopping:CANAGLIFLOZIN (INVOKANA ORAL) Comments:Reason for Stopping:traMADOL (ULTRAM) 50 mg tablet Comments:Reason for Stopping:Jonathan Baez Jr. MDClinical Electric Switch Repairer [facility] Emergency DepartmentDragon Dictation Software is used frequently and may produce errors. Promptly contact for obvious discrepancies.Jonathan Baez MD12/22/232032 [id number] Emergency department [id number]:33:49Physian Emergency department [id number] for patient grkn96710-0Zeulfmvcp department NoteLNNARRATIVEFormatted C-CDA narrative text[address]Io[id number] [id number]:33:491.2.840.391996.1.72.3 .15|[id number] 14 [facility] 2023-12-22 12:56:00 [id number]:56:00Formatting of this no te might be different from the original.AdmissionCareGuideline: Diabetes - INPT, InpatientBased on the indications selected for the patient, the bed status of Admit to Inpatient was determined to be METThe following indications were selected as present at the time of evaluation of the patient:Hyperglycemia requiring inpatient care, as indicated by 1 or more of the following:-- Significant electrolyte abnormality (eg, hypokalemia, hyperkalemia, hypernatremia) that persists despite observation care- Glucose level persistently too high for next level of care (eg, concern for redevelopment of dehydration, electrolyte abnormality), or not sufficiently stable despite observation careAdmissionCare documentation entered by: Jonathan BaezCED[facility] [place] [employer] Interventional, 27th edition, Copyright ? 2022 [facility] [place] [employer]! [facility] All Rights Reserved.[id number]:32:00-06:00 [id number] Admission [id number] [id number]:32:01EC Admission [id number]|2 [id number] for patient zqce90622-5TmfuUCJUYIBFCPRNjeggxtxu C-CDA narrative textUT[address] Ed[id number] BSYJMDQZG2584-39-05L86:32:011.2.840.679220.1.72.3 .15|[id number] [facility]
[2024-05-18] MEDS ORDERED: NA CHLORIDE 0.9% 1,000 ML ONE (07:58)
[2024-05-18 08:16] LABS: Absolute Eosinophils 0.1 K/uL (0-0.5); Absolute Lymphocytes (CBC) 1.7 K/uL (0.7-4.9); Absolute Monocytes 0.3 K/uL (0.1-1.3); Absolute Neutrophil 4.3 K/uL (1.8-8.0); Basophils % 0.6 % (0-1.3); Eosinophils % 1.8 % (0-4.4); Hematocrit 36.9 % (36.0-45.0); Hemoglobin 12.6 g/dL (12.0-15.0); Lymphocytes % 25.9 % (15.3-44.8); MCH 29.8 pg (27.0-35.0); MCHC 34.1 g/dL (32.0-36.0); MCV 87.6 fL (80-100); MPV 8.5 fL (7.6-11.3); Monocytes % 5.4 % (3.3-12.3); Neutrophils % 66.3 % (41.7-73.7); Platelets 178 thou/uL (152-406); RBC Red Blood Cell Count 4.21 M/uL (3.86-4.86); Red Cell Distribution Width 13.4 % (12.1-15.2)
[2024-05-18 08:26] LABS: PT Prothrombin Time 11.1 SECONDS (9.5-12.5); Protime INR 1.01
--- NOTE | 2024-05-18 08:42 | RAD REPORT ---
[facility]15 [facility] CLINICAL HISTORY: COUGH COMPARISON: Chest Single View dated 10/13/2023; Chest Single View dated 09/02/2023; Chest Single View dated 07/17/2023; Chest Single View dated 06/24/2023 TECHNIQUE: Portable AP view of the chest. FINDINGS: The lungs are clear. No pneumothorax or effusion. The cardiomediastinal contours are unre markable. IMPRESSION: No acute cardiopulmonary process.
[2024-05-18 08:52] LABS: ALT/SGPT 24 U/L (13-56); Albumin 3.7 g/dL (3.4-5.0); Albumin/Globulin Ratio 1.1 (1.1-1.8); Alkaline Phosphatase 91 U/L (45-117); Anion Gap 11.5 mEq/L (5.0-15.0); BUN Blood Urea Nitrogen 19 mg/dL (7-18); Bicarbonate 25 mEq/L (21-32); Bilirubin Total 0.4 mg/dL (0.2-1.0); Globulin 3.5 g/dL (2.3-3.5); Glomerular Filtration Rate 54 ml/min (=/>90); Glucose Level 243 mg/dL (74-106); Lipase 48 U/L (13-75); Magnesium 1.5 mg/dL (1.6-2.4); NT PRO-BNP 129 pg/mL (<125); Potassium 3.5 mEq/L (3.5-5.1); Protein, Total 7.2 g/dL (6.4-8.2); Sodium Level 138 mEq/L (136-145)
[2024-05-18 08:54] LABS: AST/SGOT < 10 U/L (15-37)
[2024-05-18 08:55] LABS: Bilirubin Direct < 0.2 mg/dL (0-0.2); Bilirubin Indirect, Calculated 0.2 mg/dL (0.2-0.8); Troponin High Sensitivity < 3.0 pg/mL (<58.9)
[2024-05-18] MEDS ORDERED: Magnesium Sulfate 2gm IVPB 2 G/50 ML BAG IV ONE (09:05)
[2024-05-18 09:16] LABS: Sqamous Epithelial <5 /HPF (None Seen); Urine Bacteria <20 /HPF (<20); Urine Bilirubin NEGATIVE (Negative); Urine Blood Negative (Negative); Urine Clarity Clear (Clear); Urine Color Light-Yellow (Yellow); Urine Culture Reflex Order NOT NEEDED; Urine Glucose 2+ (Negative); Urine Ketones NEGATIVE (Negative); Urine Microscopic Reflex YN ORDER UMIC; Urine Mucus Slight /HPF (None Seen); Urine Nitrite NEGATIVE (Negative); Urine Protein TRACE (Negative); Urine RBC <5 /HPF (None Seen); Urine Urobilinogen Normal (Normal); Urine pH 5.5 (5.0-7.0)
[2024-05-18] MEDS ORDERED: CEFTRIAXONE 1000 MG/VIAL ONE (09:35)
--- NOTE | 2024-05-18 09:44 | ER ---
Nurse's Notes [facility] Name: Elaine Rowland Age: 53 yrs Sex: Female : 1970 Arrival Date: 05/18/2024 Time: 07:35 Bed 5 Private MD: Diagnosis: Type 2 diabetes mellitus with hyperglycemia;Hypomagnesemia;UTI/ Urinary tract infection, site not specified Presentation: 05/18 07:39 Acuity: SHAINA 3 aa5 07:39 Coronavirus screen: At this time, the client does not indicate any symptoms associated aa5 with coronavirus-19. Ebola Screen: Patient denies travel to an Ebola-affected area in the 21 days before illness onset. Initial Sepsis Screen: Does the patient meet any 2 criteria? No. Patient's initial sepsis screen is negative. Does the patient have a suspected source of infection? No. Patient's initial sepsis screen is negative. Risk Assessment: Do you want to hurt yourself or someone else? Patient reports no desire to harm self or others. Onset of symptoms was April 2024. 07:39 Method Of Arrival: Ambulatory aa5 07:39 Chief complaint: Patient states: "I've been taking metformin for years but now they aa5 have me taking all these other medications for my diabetes and it's making my face flushed, it makes me feel lightheaded, and one of them is giving me loose bowels". Historical: - Allergies: 07:45 NKDA; aa5 - Home Meds: 07:45 Glipizide Oral [Active]; Metformin Oral [Active]; Insulin: Regular Sub-Q [Active]; aa5 Basaglar KingPen U-100 Insulin 100 unit/mL (3 mL) subcutaneous Insulin Pen [Active]; - PMHx: 07:45 abd hernia; acid reflux; Anxiety; cirrhosis of liver; COPD; Diabetes - NIDDM; aa5 Hyperlipidemia; Hypertensive disorder; - PSHx: 07:45 Carpal tunnel sx (en); aa5 - Immunization history:: Adult Immunizations unknown. - Infectious Disease History:: Denies. - Social history:: Smoking status: Patient denies any tobacco usage or history of. - Family history:: not pertinent. Screenin:20 [facility] ED Fall Risk Assessment (Adult) History of falling in the last 3 months, ko1 including since admission No falls in past 3 months (0 pts) Confusion or Disorientation No (0 pts) Intoxicated or Sedated No (0 pts) Impaired Gait No (0 pts) Mobility Assist Device Used No (0 pt) Altered Elimination No (0 pt) Score/Fall Risk Level 0 - 2 = Low Risk Oriented to surroundings, Maintained a safe environment, Educated pt \\T\\ family on fall prevention, incl call for assistance when getting out of bed, Assessed \\T\\ reinforced patient's understanding of fall precautions, Provided non-skid footwear, Hourly rounding (assess needs \\T\\ fall precautionary measures) done. Abuse screen: Denies threats or abuse. Denies injuries from another. Nutritional screening: No deficits noted. Tuberculosis screening: No symptoms or risk factors identified. Assessment: 08:25 General: Appears in no apparent distress. Behavior is calm, cooperative, appropriate ko1 for age. Pain: Denies pain. Neuro: No deficits noted. Cardiovascular: No deficits noted. Respiratory: No deficits noted. GI: No deficits noted. : No deficits noted. EENT: No deficits noted. Derm: No deficits noted. Musculoskeletal: No deficits noted. 09:48 Reassessment: awaiting magnesium drip to finish for discharge. ko1 Vital Signs: 07:39 BP 155 / 79; Pulse 84; Resp 18 S; Temp 97.5(TE); Pulse Ox 100% on R/A; Weight 81.65 kg aa5 (R); Height 5 ft. 2 in. (R); 08:25 BP 149 / 73; Pulse 71; Resp 16; Pulse Ox 98% ; ko1 09:27 BP 132 / 71; Pulse 72; Resp 15; Pulse Ox 100% ; ko1 09:43 BP 126 / 75; Pulse 68; Resp 16; Pulse Ox 100% on R/A; ko1 07:39 Body Mass Index 32.92 (81.65 kg, 157.48 cm) aa5 ED Course: 07:37 Patient arrived in ED. rg4 07:39 Arm band placed on Patient placed in an exam room, on a stretcher. aa5 07:42 Se Ohara MD is Attending Physician. mauricio 07:45 Anya Jay, RN is Primary Nurse. ko1 07:47 Triage completed. aa5 08:08 Basic Metabolic Panel Sent. ko1 08:08 CBC with Diff Sent. ko1 08:08 LFT's Sent. ko1 08:08 Magnesium Sent. ko1 08:08 NT PRO-BNP Sent. ko1 08:08 PT-INR Sent. ko1 08:08 Troponin HS Sent. ko1 08:08 Lipase Sent. ko1 08:17 XRAY Chest (1 view) In Process Unspecified. EDMS 08:20 Patient has correct armband on for positive identification. Bed in low position. Call ko1 light in reach. Side rails up X2. Provided Education on: labs/meds. Client placed on continuous cardiac and pulse oximetry monitoring. NIBP monitoring applied. hall monitor on. Door closed. Noise minimized. Lights dimmed. Warm blanket given. Pillow given. 08:20 No provider procedures requiring assistance completed. Initial lab(s) drawn, by ED ko1 staff, sent to lab. EKG done, by ED staff, reviewed by Se Ohara MD. 08:54 Urinalysis w/ reflexes Sent. ko1 09:43 Zachary Fletcher MD is Referral Physician. mauricio 09:57 IV discontinued, intact, bleeding controlled, No redness/swelling at site. Pressure ko1 dressing applied. Administered Medications: 08:16 Drug: NS 0.9% IV 1000 ml IV at 1 bolus Per protocol; 1000 mL bolus Route: IV; Rate: 1 ko1 bolus; Site: left antecubital; 09:39 Follow up: Response: No adverse reaction; IV Status: Completed infusion; IV Intake: ko1 1000ml 09:05 Drug: Magnesium Sulfate IVPB 2 grams IVPB once over 1 hrs Route: IVPB; Infused Over: 1 rs5 hrs; Site: right antecubital; 09:57 Follow up: Response: No adverse reaction; IV Status: Completed infusion; IV Intake: ko1 100ml 09:34 Drug: Rocephin IV 1 grams IV at per protocol once; Given slow IV push per pharmacy ko1 instructions Route: IV; Rate: per protocol; Site: left antecubital; 09:49 Follow up: Response: No adverse reaction; IV Status: Completed infusion; IV Intake: 90ucig1 Medication: 08:20 VIS not applicable for this client. ko1 Intake: 09:39 IV: 1000ml; Total: 1000ml. ko1 09:49 IV: 10ml; Total: 1010ml. ko1 09:57 IV: 100ml; Total: 1110ml. ko1 Outcome: 09:43 Discharge ordered by . mauricio 09:57 Discharged to home ambulatory, ko1 09:57 Condition: stable 09:57 Discharge instructions given to patient, Instructed on discharge instructions, follow up and referral plans. medication usage, Demonstrated understanding of instructions, follow-up care, medications, Prescriptions given X 2, 10:05 Patient left the ED. ko1 Signatures: Dispatcher [employer] EDMS Se Ohara MD MD cha Calderon, Audri, RN RN aa5 Erika Moore rg4 Anya Jay, RN RN ko1 [facility] [address] RN RN rs5
--- NOTE | 2024-05-18 09:44 | EDPHYS ---
Physician Documentation [facility] Name: Elaine Rowland Age: 53 yrs Sex: Female : 1970 Arrival Date: 05/18/2024 Time: 07:35 Bed 5 Private MD: OZZY Physician Se Ohara HPI: 05/18 09:02 This 53 yrs old Female presents to ER via Ambulatory with complaints of Blood mauricio Sugar Problem. 09:02 The patient presents with diarrhea. Onset: The symptoms/episode began/occurred 3 day(s) mauricio ago. The patient or guardian reports hyperglycemia. Onset: The symptoms/episode began/occurred 2 week(s) ago. Associated signs and symptoms: Pertinent positives: diarrhea. loose stools. The symptoms do not radiate. Associated signs and symptoms: Pertinent positives: diarrhea. Modifying factors: The symptoms are alleviated by nothing, the symptoms are aggravated by nothing. Severity of pain: At its worst the pain was very mild in the emergency department the pain has resolved and did so earlier today. Severity of symptoms: At their worst the symptoms were mild in the emergency department the symptoms are unchanged. The patient has experienced similar episodes in the past, several times. Historical: - Allergies: 07:45 NKDA; aa5 - Home Meds: 07:45 Glipizide Oral [Active]; Metformin Oral [Active]; Insulin: Regular Sub-Q [Active]; aa5 Basaglar KwikPen U-100 Insulin 100 unit/mL (3 mL) subcutaneous Insulin Pen [Active]; - PMHx: 07:45 abd hernia; acid reflux; Anxiety; cirrhosis of liver; COPD; Diabetes - NIDDM; aa5 Hyperlipidemia; Hypertensive disorder; - PSHx: 07:45 Carpal tunnel sx (en); aa5 - Immunization history:: Adult Immunizations unknown. - Infectious Disease History:: Denies. - Social history:: Smoking status: Patient denies any tobacco usage or history of. - Family history:: not pertinent. ROS: 09:02 Constitutional: Negative for fever, chills, and weight loss, Eyes: Negative for injury, mauricio pain, redness, and discharge, ENT: Negative for injury, pain, and discharge, Neck: Negative for injury, pain, and swelling, Cardiovascular: Negative for chest pain, palpitations, and edema, Respiratory: Negative for shortness of breath, cough, wheezing, and pleuritic chest pain, Back: Negative for injury and pain, : Negative for injury, bleeding, discharge, and swelling, MS/Extremity: Negative for injury and deformity, Skin: Negative for injury, rash, and discoloration, Neuro: Negative for headache, weakness, numbness, tingling, and seizure, Psych: Negative for depression, anxiety, suicide ideation, homicidal ideation, and hallucinations, Allergy/Immunology: Negative for hives, rash, and allergies, Endocrine: Negative for neck swelling, polydipsia, polyuria, polyphagia, and marked weight changes, Hematologic/Lymphatic: Negative for swollen nodes, abnormal bleeding, and unusual bruising, : Abdomen/GI: Positive for diarrhea, Exam: : Constitutional: This is a well developed, well nourished patient who is awake, alert, mauricio and in no acute distress. Head/Face: Normocephalic, atraumatic. Eyes: Pupils equal round and reactive to light, extra-ocular motions intact. Lids and lashes normal. Conjunctiva and sclera are non-icteric and not injected. Cornea within normal limits. Periorbital areas with no swelling, redness, or edema. ENT: Nares patent. No nasal discharge, no septal abnormalities noted. Tympanic membranes are normal and external auditory canals are clear. Oropharynx with no redness, swelling, or masses, exudates, or evidence of obstruction, uvula midline. Mucous membranes moist. Neck: Trachea midline, no thyromegaly or masses palpated, and no cervical lymphadenopathy. Supple, full range of motion without nuchal rigidity, or vertebral point tenderness. No Meningismus. Chest/axilla: Normal chest wall appearance and motion. Nontender with no deformity. No lesions are appreciated. Cardiovascular: Regular rate and rhythm with a normal S1 and S2. No gallops, murmurs, or rubs. Normal PMI, no JVD. No pulse deficits. Respiratory: Lungs have equal breath sounds bilaterally, clear to auscultation and percussion. No rales, rhonchi or wheezes noted. No increased work of breathing, no retractions or nasal flaring. Back: No spinal tenderness. No costovertebral tenderness. Full range of motion. Skin: Warm, dry with normal turgor. Normal color with no rashes, no lesions, and no evidence of cellulitis. MS/ Extremity: Pulses equal, no cyanosis. Neurovascular intact. Full, normal range of motion. Neuro: Awake and alert, GCS 15, oriented to person, place, time, and situation. Cranial nerves II-XII grossly intact. Motor strength 5/5 in all extremities. Sensory grossly intact. Cerebellar exam normal. Normal gait. Psych: Awake, alert, with orientation to person, place and time. Behavior, mood, and affect are within normal limits. 09:02 ECG was reviewed by the Attending Physician. 09:02 Abdomen/GI: Inspection: abdomen appears normal, Bowel sounds: normal, Palpation: abdomen is soft and non-tender, in all quadrants, Liver: no appreciated palpable abnormalities, Hernia: not appreciated, Vital Signs: 07:39 BP 155 / 79; Pulse 84; Resp 18 S; Temp 97.5(TE); Pulse Ox 100% on R/A; Weight 81.65 kg aa5 (R); Height 5 ft. 2 in. (R); 08:25 BP 149 / 73; Pulse 71; Resp 16; Pulse Ox 98% ; ko1 09:27 BP 132 / 71; Pulse 72; Resp 15; Pulse Ox 100% ; ko1 09:43 BP 126 / 75; Pulse 68; Resp 16; Pulse Ox 100% on R/A; ko1 07:39 Body Mass Index 32.92 (81.65 kg, 157.48 cm) aa5 MDM: 07:42 Patient medically screened. mauricio 09:06 Differential Diagnosis altered mental status, sepsis. Differential diagnosis: mauricio hyperglycemia, bowel obstruction, cholecystitis, Cholelithiasis, diverticulitis, gastritis, non-specific abd pain, pancreatitis. Data reviewed: vital signs, nurses notes, lab test result(s), EKG, radiologic studies, plain films. Consideration of Admission/Observation Escalation of care including admission/observation considered. I considered the following discharge prescriptions or medication management in the emergency department Medications were administered in the Emergency Department. See MAR. Independent interpretation of the following test(s) in the Emergency Department EKG: See my EKG interpretation above. Test considered but Not performed: CT: no ct abd/pelvis. Historians other than the Patient: pt well informed. Care significantly affected by the following chronic conditions: Diabetes, Hypertension, Chronic Obstructive Pulmonary Disease, Obesity, Liver Disease. 05/18 07:52 Order name: Basic Metabolic Panel; Complete Time: 08:59 [facility] 05/18 07:52 Order name: CBC with Diff; Complete Time: 08:59 [facility] 05/18 07:52 Order name: LFT's; Complete Time: 08:59 [facility] 05/18 07:52 Order name: Magnesium; Complete Time: 08:59 [facility] 05/18 07:52 Order name: NT PRO-BNP; Complete Time: 08:59 [facility] 05/18 07:52 Order name: PT-INR; Complete Time: 08:59 [facility] 05/18 07:52 Order name: Troponin HS; Complete Time: 08:59 [facility] 05/18 07:52 Order name: Lipase; Complete Time: 08:59 [facility] 05/18 07:52 Order name: Urinalysis w/ reflexes; Complete Time: 09:28 [facility] 05/18 08:02 Order name: Glucose, Ancillary Testing; Complete Time: 08:59 [facility] 05/18 07:52 Order name: XRAY Chest (1 view); Complete Time: 08:59 [facility] 05/18 07:52 Order name: Cardiac monitoring; Complete Time: 08:05 [facility] 05/18 07:52 Order name: EKG - Nurse/Tech; Complete Time: 09:15 [facility] 05/18 07:52 Order name: IV Saline Lock; Complete Time: 08:08 [facility] 05/18 07:52 Order name: Labs collected and sent; Complete Time: 08:08 [facility] 05/18 07:52 Order name: O2 Per Protocol; Complete Time: 08:05 [facility] 05/18 07:52 Order name: O2 Sat Monitoring; Complete Time: 08:05 [facility] EC:02 Rate is 67 beats/min. Rhythm is regular. WI interval is normal. QRS interval is normal. [facility] QT interval is normal. No Q waves. T waves are Normal. ST Segment is depressed in lead III. Clinical impression: NSR w/ Non-specific ST/T Changes and No evidence of ischemia. Interpreted by me. Reviewed by me. Administered Medications: 08:16 Drug: NS 0.9% IV 1000 ml IV at 1 bolus Per protocol; 1000 mL bolus Route: IV; Rate: 1 ko1 bolus; Site: left antecubital; 09:39 Follow up: Response: No adverse reaction; IV Status: Completed infusion; IV Intake: ko1 1000ml 09:05 Drug: Magnesium Sulfate IVPB 2 grams IVPB once over 1 hrs Route: IVPB; Infused Over: 1 rs5 hrs; Site: right antecubital; 09:57 Follow up: Response: No adverse reaction; IV Status: Completed infusion; IV Intake: ko1 100ml 09:34 Drug: Rocephin IV 1 grams IV at per protocol once; Given slow IV push per pharmacy ko1 instructions Route: IV; Rate: per protocol; Site: left antecubital; 09:49 Follow up: Response: No adverse reaction; IV Status: Completed infusion; IV Intake: [id number] Disposition Summary: 05/18/24 09:43 Discharge Ordered Notes: Location: Home mauricio Problem: new mauricio Symptoms: have improved mauricio Condition: Stable mauricio Diagnosis - Type 2 diabetes mellitus with hyperglycemia mauricio - Hypomagnesemia mauricio - UTI/ Urinary tract infection, site not specified mauricio Followup: mauricio - With: Private Physician - When: 2 - 3 days - Reason: Recheck today's complaints, Continuance of care, Re-evaluation by your physician Followup: mauricio - With: Zachary Fletcher MD - When: 2 - 3 days - Reason: Recheck today's complaints, Re-evaluation by your physician Discharge Instructions: - Discharge Summary Sheet mauricio - Food Choices to Help Relieve Diarrhea, Adult mauricio - Type 2 Diabetes Mellitus, Diagnosis, Adult mauricio - Diarrhea, Adult mauricio - High-Fiber Eating Plan mauricio - Hyperglycemia mauricio - Hypomagnesemia mauricio - Urinary Tract Infection, Adult mauricio - Blood Glucose Monitoring, Adult mauricio - Diarrhea, Adult, [id number] mauricio - Diabetes Mellitus and Exercise mauricio - Diabetes Mellitus and Nutrition, Adult mauricio - Hyperglycemia, [id number] [facility] Forms: - Medication Reconciliation Form [facility] - Antibiotic Education mauricio - Prescription Opioid Use [facility] - Patient Portal Instructions [facility] - Leadership Thank You Letter [facility] - Work release form ko1 Prescriptions: - MagOx 400 mg (241.3 mg magnesium) Oral tablet - take 1 tablet ORAL route daily; 14 tablet; Refills: 0, Product Selection [facility] Permitted - Cipro 250 mg Oral tablet - take 1 tablet ORAL route every 12 hours; 14 tablet; Refills: 0, Product [facility] Selection Permitted Signatures: Dispatcher [employer] Se Lee MD MD cha Calderon, Audri, RN RN aa5 Anya Jay RN RN ko1 [facility] RN RN rs5 Corrections: (The following items were deleted from the chart) 07:53 07:53 BASIC METABOLIC PANEL+C.LAB.BRZ ordered. EDMS EDMS 07:53 07:53 CBC+H.LAB.BRZ ordered. EDMS EDMS 07:53 07:53 HEPATIC FUNCTION+C.LAB.BRZ ordered. EDMS EDMS 07:53 07:53 MAGNESIUM+C.LAB.BRZ ordered. EDMS EDMS 07:53 07:53 PROBNP+C.LAB.BRZ ordered. EDMS EDMS 07:53 07:53 PROTIME (+INR)+COAG.LAB.BRZ ordered. EDMS EDMS 07:53 07:53 Troponin High Sensitivity+C.LAB.BRZ ordered. EDMS EDMS 07:53 07:53 LIPASE+C.LAB.BRZ ordered. EDMS EDMS 07:53 07:53 Urinalysis+U.LAB.BRZ ordered. EDMS EDMS 07:53 07:53 Chest Single View+RAD.RAD.BRZ ordered. EDMS EDMS
[2024-05-18 10:12] VITALS: TEMP 97.5
[2024-05-18 10:29] VITALS: BP 126/75; O2SAT 100
== END 2024-05-18 10:05 | disposition home or self-care (01) ==
LOC: ER 07:35
DX: E11.65 Type 2 diabetes mellitus with hyperglycemia (principal); N39.0 Urinary tract infection, site not specified; E83.42 Hypomagnesemia; I10 Essential (primary) hypertension; E78.5 Hyperlipidemia, unspecified; K21.9 Gastro-esophageal reflux disease without esophagitis; J44.9 Chronic obstructive pulmonary disease, unspecified; Z79.4 Long term (current) use of insulin; Z79.84 Long term (current) use of oral hypoglycemic drugs
CPT/HCPCS: 96365; 96361; 85025; 81001; 80048; 36415; 83735; 85610; 82947; 80076; 84484; 83690; 83880; 71045; 96375; 99285; J3475; J7030; J0696